=== PATIENT | female | born 1945 | race Caucasian/White ===

== ENCOUNTER → 2017-03-26 | Outpatient (CLI) | payer BC ==
[~2017-03-26] MED LIST: ACET-1257 PO; BUME1TAB PO; CEPH-571 PO; CHOL1000 PO; CMD25 PO; CRFL PO; CYAN100020 IM; FOLI1TAB7 PO; LPT10 PO; METO-648 PO; MULTCHW4 PO; PANT40TA PO; POTA1POW PO; POTA20TA16 PO; SULF800T23 PO; TRAM-10 PO; WARF5TAB90 PO; ZINC1CAP PO; ZRX5 PO; klor-con PO
== END | disposition home or self-care (01) ==
LOC: C.LAB1850 09:20
PROVIDERS: ATTEND Internal Medicine
DX: E87.5 Hyperkalemia (principal); E87.6 Hypokalemia

== ENCOUNTER → 2017-03-31 | Outpatient (CLI) | payer BC ==
--- NOTE | 2017-03-31 12:37 | DIAGNOSTIC IMAGING REPORT ---
CT OF THE CHEST WITHOUT IV CONTRAST CLINICAL HISTORY: Abnormal CT scan performed in [place]. Right lung inflammation. COMPARISON STUDY: Chest x-ray dated 11/05/2016 CT DOSE: 353.30 mGy.cm TECHNIQUE: CT of the thorax was performed from the thoracic inlet to the lung bases. Images are reviewed in the axial, sagittal, and coronal planes. IV contrast was not administered for this examination. FINDINGS: Thyroid: There is a large left-sided thyroid goiter with a suspected 4.5 cm nodule. Nonemergent thyroid ultrasonography is recommended in follow-up. Thoracic aorta: The thoracic aorta is normal in course and caliber, noting standard 3 vessel arch anatomy. Heart: There are postsurgical changes of a midline sternotomy. There are coronary artery calcifications present. Lungs and pleural spaces: There are no pleural effusions. There is no pneumothorax. There is no focal pulmonary consolidation. There are linear opacities basilar opacities, left greater than right likely representing scar/atelectasis. There is nodular fissural thickening within the right upper lobe., Mediastinum: There are multiple mildly prominent mediastinal lymph nodes which are not pathologically enlarged by size criteria Sydnee: There is no evidence of pathologic hilar adenopathy given the limitations of a noncontrast study Axilla: There is no evidence of pathologic adenopathy Upper abdomen: There is an 8 mm upper pole left renal calculus. The gallbladder surgically absent. Skeletal structures: There are no lytic or blastic osseous lesions. IMPRESSION: 1. Large left-sided thyroid goiter/nodule measuring 4.5 cm. Nonemergent thyroid ultrasonography is recommended in follow-up 2. Linear bibasilar opacities left greater than right. The appearance favors atelectasis/scarring 3. There are no findings to indicate a pneumonia 4. Left-sided nephrolithiasis Electronically signed by: Roc Andrews M.D. 03/31/2017 12:35 PM Dictated Date/Time: 03/31/2017 12:28 PM
== END | disposition home or self-care (01) ==
LOC: C.CTS 11:39
PROVIDERS: ATTEND Internal Medicine
DX: R93.8 Abnormal findings on diagnostic imaging of other specified body structures (principal); E04.9 Nontoxic goiter, unspecified; N20.0 Calculus of kidney

== ENCOUNTER → 2017-04-06 | Outpatient (CLI) | payer BC ==
--- NOTE | 2017-04-06 13:19 | DIAGNOSTIC IMAGING REPORT ---
THYROID ULTRASOUND HISTORY: R93.[address] scan, [id number] Thyroid [id number] COMPARISON: Chest CT 03/31/2017. FINDINGS: Right lobe: 6.0 x 1.8 x 2.0 cm. Multiple similar-appearing solid and cystic nodules with the largest measuring 1.4 x 1.3 x 1.1 cm within the lower pole. These do not meet sonographic criteria for biopsy. Left lobe: 7.4 x 3.3 x 5.5 cm. Dominant nodule measures 7.1 x 2.9 x 5.3 cm and demonstrates a few coarse calcifications. There is a smaller nodule posteriorly measuring 2.5 x 2.1 x 1.4 cm. This measures multiple microcalcifications. Isthmus: 4 mm in thickness. 8 mm hypoechoic nodule/cyst. IMPRESSION: Multinodular thyroid gland. Recommend ultrasound-guided fine-needle aspiration for the 2 nodules within the left lower lobe as described above. Electronically signed by: Roverto Aguilar M.D. 04/06/2017 1:18 PM Dictated Date/Time: 04/06/2017 1:15 PM
== END | disposition home or self-care (01) ==
LOC: C.ULTRBC 12:39
PROVIDERS: ATTEND Internal Medicine
DX: E01.0 Iodine-deficiency related diffuse (endemic) goiter (principal); R93.8 Abnormal findings on diagnostic imaging of other specified body structures

== ENCOUNTER → 2017-04-13 | Outpatient (CLI) | payer BC ==
[2017-04-13 17:00] LABS: BASO % 1.2 %; BASO ABS # 0.14 K/uL (0-0.2); COMPLETE YES; EOS % 1.3 %; HEMATOCRIT 34.9 % (37-47); IG% 0.8 %; LYMPH % 29.8 %; LYMPH ABS # 3.58 K/uL (1.2-3.4); MEAN CELL VOLUME 78.6 fL (80-100); MEAN CORPUSCULAR HEMOGLOBIN 24.1 pg (25-34); MEAN CORPUSCULAR HGB CONC 30.7 g/dl (32-36); MEAN PLATELET VOLUME 8.9 fL (7.4-10.4); MONO % 10.1 %; NEUT % 56.8 %; PLATELET COUNT 583 K/uL (130-400); RED BLOOD COUNT 4.44 M/uL (4.2-5.4)
== END | disposition home or self-care (01) ==
LOC: C.LABBC 14:23
PROVIDERS: ATTEND Internal Medicine Hematology & Oncology
DX: D50.9 Iron deficiency anemia, unspecified (principal)

== ENCOUNTER → 2017-04-22 | Outpatient (CLI) | payer BC ==
--- NOTE | 2017-04-22 16:56 | DIAGNOSTIC IMAGING REPORT ---
LEFT FOOT 3 VIEWS HISTORY: OPEN WOUND L FOOT COMPARISON: None. FINDINGS: There is no fracture or dislocation. Mild soft tissue swelling within the left foot. The bones are osteopenic. Plantar heel spur. No cortical destruction to suggest osteomyelitis. No radiopaque foreign bodies. 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 IMPRESSION: 1. No cortical destruction to suggest osteomyelitis. 2. No fracture or dislocation. 3. Diffuse osteopenia. Electronically signed by: Roverto Aguilar M.D. 04/22/2017 4:55 PM Dictated Date/Time: 04/22/2017 4:53 PM
== END | disposition home or self-care (01) ==
LOC: C.RAD 16:33
PROVIDERS: ATTEND Emergency Medicine
DX: S91.302A Unspecified open wound, left foot, initial encounter (principal); X58.XXXA Exposure to other specified factors, initial encounter; M85.872 Other specified disorders of bone density and structure, left ankle and foot

== ENCOUNTER → 2017-05-11 | Outpatient (CLI) | payer BC ==
[~2017-05-11] MED LIST changes: -CEPH-571 PO; -CRFL PO; -SULF800T23 PO
[2017-05-11 09:37] LABS: BASO % 1.1 %; BASO ABS # 0.11 K/uL (0-0.2); COMPLETE YES; EOS % 3.3 %; HEMATOCRIT 33.9 % (37-47); IG% 0.7 %; LYMPH % 28.5 %; LYMPH ABS # 2.95 K/uL (1.2-3.4); MEAN CELL VOLUME 78.1 fL (80-100); MEAN CORPUSCULAR HEMOGLOBIN 23.3 pg (25-34); MEAN CORPUSCULAR HGB CONC 29.8 g/dl (32-36); MEAN PLATELET VOLUME 9.1 fL (7.4-10.4); MONO % 12.1 %; NEUT % 54.3 %; PLATELET COUNT 574 K/uL (130-400); RED BLOOD COUNT 4.34 M/uL (4.2-5.4); WHITE BLOOD COUNT 10.36 K/uL (4.8-10.8)
[2017-05-11 10:11] LABS: BLOOD UREA NITROGEN 25 mg/dl (7-18); BUN/CREATININE RATIO 27.3 (10-20); CARBON DIOXIDE 35 mmol/L (21-32); CHLORIDE 96 mmol/L (98-107); CREATININE 0.93 mg/dl (0.60-1.20); GLUCOSE 130 mg/dl (70-99); MAGNESIUM 2.5 mg/dl (1.8-2.4); POTASSIUM 2.7 mmol/L (3.5-5.1); SODIUM 138 mmol/L (136-145)
[2017-05-11 10:14] LABS: TOTAL IRON BINDING CAPACITY 405 mcg/dl (250-450)
== END | disposition home or self-care (01) ==
LOC: C.LAB 07:21
PROVIDERS: ATTEND Internal Medicine
DX: E87.6 Hypokalemia (principal); D64.9 Anemia, unspecified; I50.9 Heart failure, unspecified

== ENCOUNTER → 2017-05-14 | Outpatient (CLI) | payer BC | END | disposition home or self-care (01) | LOC: C.LAB 12:33 | PROVIDERS: ATTEND Internal Medicine | DX: E87.6 Hypokalemia (principal); E87.5 Hyperkalemia ==

== ENCOUNTER → 2017-05-26 | Outpatient (CLI) | payer BC ==
[~2017-05-26] MED LIST changes: -ACET-1257 PO; -METO-648 PO; +METO1TAB70 PO; -TRAM-10 PO; -ZINC1CAP PO; -klor-con PO
[2017-05-26 13:12] LABS: HEMATOCRIT 34.4 % (37-47)
[2017-05-26 13:37] LABS: ALT/SGPT 29 U/L (12-78); AST/SGOT 26 U/L (15-37); BLOOD UREA NITROGEN 19 mg/dl (7-18); CALCIUM 8.9 mg/dl (8.5-10.1); CARBON DIOXIDE 29 mmol/L (21-32); CHLORIDE 105 mmol/L (98-107); CREATININE 0.85 mg/dl (0.60-1.20); GLUCOSE 99 mg/dl (70-99); PHOSPHORUS 2.8 mg/dl (2.5-4.9); POTASSIUM 3.4 mmol/L (3.5-5.1); SODIUM 140 mmol/L (136-145)
[2017-05-26 13:46] LABS: ALB/GLOB RATIO 0.8 (0.9-2); ALKALINE PHOSPHATASE 143 U/L (45-117); THYROID STIMULATING HORMONE 0.326 uIu/ml (0.300-4.500); TOTAL IRON BINDING CAPACITY 398 mcg/dl (250-450)
[2017-05-28 18:35] LABS: ALBUMIN 3.5 G/DL (3.8-4.8); GAMMA GLOBULIN 1.4 G/DL (0.8-1.7); TOTAL PROTEIN 6.8 G/DL (6.2-8.3)
--- NOTE | 2017-06-01 09:57 | CODING QUERY MEDICAL NECESSITY ---
CQSUPPORTING DIAGNOSIS NEEDED A supporting diagnosis is required for the test/procedure performed on this patient in order for us to be reimbursed by the patient's insurance. Please provide a supporting diagnosis for the following test/procedure listed below next to the test name along with your signature. *If there is no additional diagnosis for this patient that would support the following test/procedure please document that below next to the test/procedure. Test(s)/Procedure(s) that require a supporting diagnosis: TONIO 05/26/17 VITAMIN D TEST Provider Signature: Date: Thank you Elizabet Morin [facility] Information Management Once completed, please kindly fax back to [phone] For questions please call [phone]
== END ==
LOC: C.LAB1850 11:42
PROVIDERS: ATTEND Internal Medicine Endocrinology, Diabetes & Metabolism
DX: Z98.890 Other specified postprocedural states (principal); E55.9 Vitamin D deficiency, unspecified

== ENCOUNTER → 2017-06-08 | Outpatient (CLI) | payer BC | END | disposition home or self-care (01) | LOC: C.MAMM 07:53 | PROVIDERS: ATTEND Internal Medicine Endocrinology, Diabetes & Metabolism | DX: M85.89 Other specified disorders of bone density and structure, multiple sites (principal); M81.0 Age-related osteoporosis without current pathological fracture; M15.9 Polyosteoarthritis, unspecified ==

== ENCOUNTER → 2017-08-04 | Outpatient (CLI) | payer BC ==
[2017-08-04 15:32] LABS: BASO % 1.1 %; EOS % 6.4 %; HEMATOCRIT 39.4 % (37-47); IG% 0.7 %; LYMPH % 32.5 %; LYMPH ABS # 3.08 K/uL (1.2-3.4); MEAN CELL VOLUME 80.9 fL (80-100); MEAN CORPUSCULAR HEMOGLOBIN 26.3 pg (25-34); MEAN CORPUSCULAR HGB CONC 32.5 g/dl (32-36); MEAN PLATELET VOLUME 9.5 fL (7.4-10.4); MONO % 9.4 %; NEUT % 49.9 %; PLATELET COUNT 490 K/uL (130-400); RED BLOOD COUNT 4.87 M/uL (4.2-5.4); WHITE BLOOD COUNT 9.48 K/uL (4.8-10.8)
[2017-08-04 15:53] LABS: BLOOD UREA NITROGEN 27 mg/dl (7-18); BUN/CREATININE RATIO 27.9 (10-20); CALCIUM 9.7 mg/dl (8.5-10.1); CARBON DIOXIDE 31 mmol/L (21-32); CHLORIDE 97 mmol/L (98-107); CREATININE 0.97 mg/dl (0.60-1.20); GLUCOSE 161 mg/dl (70-99); SODIUM 137 mmol/L (136-145)
[2017-08-04 16:01] LABS: ANISOCYTOSIS PRESENT; COMPLETE YES
[2017-08-04 16:04] LABS: POTASSIUM 2.4 mmol/L (3.5-5.1)
[2017-08-04 16:07] LABS: CHOLESTEROL/HDL RATIO 4.1
[2017-08-04 16:13] LABS: THYROID STIMULATING HORMONE 0.348 uIu/ml (0.300-4.500)
[2017-08-05 05:59] LABS: ESTIMATED AVERAGE GLUCOSE 131 mg/dl; HA1C FLAG Normal (Normal)
--- NOTE | 2017-08-24 09:28 | CODING QUERY MEDICAL NECESSITY ---
CQSUPPORTING DIAGNOSIS NEEDED A supporting diagnosis is required for the test/procedure performed on this patient in order for us to be reimbursed by the patient's insurance. Please provide a supporting diagnosis for the following test/procedure listed below next to the test name along with your signature. *If there is no additional diagnosis for this patient that would support the following test/procedure please document that below next to the test/procedure. Test(s)/Procedure(s) that require a supporting diagnosis: DOS 08/04/17 VITAMIN B12 TEST GLYCATED HEMOGLOBIN TEST Provider Signature: Date: Thank you Elizabet Morin Health Information Management Once completed, please kindly fax back to [phone] For questions please call [phone]
--- NOTE | 2017-08-24 09:30 | CODING QUERY MEDICAL NECESSITY ---
CQSUPPORTING DIAGNOSIS NEEDED A supporting diagnosis is required for the test/procedure performed on this patient in order for us to be reimbursed by the patient's insurance. Please provide a supporting diagnosis for the following test/procedure listed below next to the test name along with your signature. *If there is no additional diagnosis for this patient that would support the following test/procedure please document that below next to the test/procedure. Test(s)/Procedure(s) that require a supporting diagnosis: DOS 08/04/17 VITAMIN D TEST Provider Signature: Date: Thank you Elizabet Morin Health Information Management Once completed, please kindly fax back to [phone] For questions please call [phone]
== END | disposition home or self-care (01) ==
LOC: C.LAB 13:38
PROVIDERS: ATTEND Dermatology
DX: L29.9 Pruritus, unspecified (principal)

== ENCOUNTER → 2017-08-12 | Outpatient (CLI) | payer BC ==
[2017-08-12 12:25] LABS: BLOOD UREA NITROGEN 25 mg/dl (7-18); BUN/CREATININE RATIO 26.8 (10-20); CALCIUM 9.2 mg/dl (8.5-10.1); CARBON DIOXIDE 34 mmol/L (21-32); CHLORIDE 96 mmol/L (98-107); CREATININE 0.94 mg/dl (0.60-1.20); GLUCOSE 117 mg/dl (70-99); POTASSIUM 3.1 mmol/L (3.5-5.1); SODIUM 138 mmol/L (136-145)
== END | disposition home or self-care (01) ==
LOC: C.LAB 10:41
PROVIDERS: ATTEND Physician Assistant
DX: E87.6 Hypokalemia (principal)

== ENCOUNTER → 2018-03-29 | Outpatient (CLI) | payer BC ==
[~2018-03-29] MED LIST changes: +ACET-1257 PO; -FOLI1TAB7 PO; +FOLI1TAB8 PO; -METO1TAB70 PO; +METO200T31 PO; -POTA1POW PO; -POTA20TA16 PO; +TRAM-10 PO; +ZINC1CAP PO; +klor-con PO
--- NOTE | 2018-03-29 10:46 | DIAGNOSTIC IMAGING REPORT ---
R PELVIS UNI HIP 2_3 V HISTORY: 72 years-old Female LOW BACK PAIN RIGHT HIP PAIN acute right hip pain COMPARISON: CT abdomen and pelvis 03/17/2016 TECHNIQUE: Single AP view of the pelvis with 2 views of the right hip FINDINGS: Bony pelvis is intact without acute fracture or dislocation. Mild osteoarthritis about the bilateral hips. Surgical clips project over the pelvis. Peripheral arterial calcifications. No opaque foreign body. IMPRESSION: No acute fracture or dislocation. The above report was generated using voice recognition software. It may contain grammatical, syntax or spelling errors. Electronically signed by: Sean Garcia M.D. 03/29/2018 10:44 AM Dictated Date/Time: 03/29/2018 10:43 AM
--- NOTE | 2018-03-29 10:50 | DIAGNOSTIC IMAGING REPORT ---
LUMBAR SPINE MIN 4 VIEWS CLINICAL HISTORY: 72 years-old Female presenting with LOW BACK PAIN RIGHT HIP PAIN. TECHNIQUE: Frontal, bilateral oblique, lateral, and coned in lateral views of the lumbar spine were obtained. COMPARISON: 03/26/2016. FINDINGS: Osteopenia suggested. Slightly exaggerated lumbar lordosis. 5 mm of grade 1 anterolisthesis of L4 on L5 suggested, unchanged. Mildly exaggerated endplate concavity evident at L2 and L3 similar to prior exam and possibly suggesting osteoporotic deformities. Vertebral bodies otherwise maintain normal height and alignment. No evidence of a acute compression deformity or subluxation. Intervertebral disc heights preserved. No advanced degenerative change. Facet arthropathy may be present in the lower lumbar spine though no gross evidence of osseous neural foraminal narrowing is radiographically apparent. No scoliosis. Cholecystectomy clips. Additional surgical clips project over the bilateral lower quadrants. No bowel obstruction. Atherosclerosis. IMPRESSION: 1. Osteopenia and osteoporosis suspected with chronic endplate deformities. 2. No acute osseous injury of the lumbar spine. 3. Grade 1 anterolisthesis of L4 on L5 unchanged. 4. No advanced degenerative changes. Electronically signed by: Duc Morataya M.D. 03/29/2018 10:49 AM Dictated Date/Time: 03/29/2018 10:46 AM
== END | disposition home or self-care (01) ==
LOC: C.RDSM 10:15
PROVIDERS: ATTEND Family Medicine
DX: M25.551 Pain in right hip (principal); M54.5 Low back pain; M85.88 Other specified disorders of bone density and structure, other site; M81.0 Age-related osteoporosis without current pathological fracture; M53.86 Other specified dorsopathies, lumbar region

== ENCOUNTER 2019-07-05 19:10 | Inpatient (IN) ==
[2019-07-05 19:43] LABS: Basophils # (auto) 0.05 K/uL (0-0.2); Basophils % (auto) 0.4 %; Eosinophils # (auto) 0.29 K/uL (0-0.5); Eosinophils % (auto) 2.2 %; Hematocrit (blood only) 33.8 % (37-47); Hemoglobin 10.8 g/dL (12.0-16.0); Immature Granulocytes # (auto) 0.12 K/uL (0.00-0.02); Immature Granulocytes % (auto) 0.9 %; Lymphocytes # (auto) 3.24 K/uL (1.2-3.4); Mean Corpuscular Volume 77.9 fL (80-100); Monocytes # (auto) 1.33 K/uL (0.11-0.59); Monocytes % (auto) 10.3 %; Neutrophils # (auto) 7.94 K/uL (1.4-6.5); Neutrophils % (auto) 61.2 %; Platelet Count 437 K/uL (130-400); RDW Coefficient of Variation 17.1 % (11.5-14.5); RDW Standard Deviation 48.5 fL (36.4-46.3); Red Blood Count 4.34 M/uL (4.2-5.4); White Blood Count 12.97 K/uL (4.8-10.8)
--- NOTE | 2019-07-05 19:50 | XRay Report ---
SINGLE VIEW CHEST CLINICAL HISTORY: Dyspnea. FINDINGS: An AP, portable, upright chest radiograph is compared to study dated 04/04/2019 and correlat ed with chest CT dated 05/05/2019. The examination is degraded by portable technique and patient rotat ion. The patient is status post midline sternotomy and cardiac valve surgery. The heart is enlarged and there is atherosclerotic calcification of the thoracic aorta. The pulmonary vasculature is noncon gested. Enlargement of the main pulmonary arteries suggests pulmonary artery hypertension. Chronic in terstitial thickening is similar to previous. There is bibasilar scarring/atelectasis. Pleural thicke ja at the left lung base is similar unchanged from prior studies. No airspace consolidation or larg e pleural effusion is identified. No pneumothorax is seen. The skeletal structures are osteopenic. Th e bony thorax is grossly intact. IMPRESSION: Cardiomegaly with no acute cardiopulmonary abnormality. Electronically signed by: Albert Pettit M.D. 07/05/2019 7:49 PM
[2019-07-05 19:53] LABS: INR 2.6 (0.9-1.1); Partial Thromboplastin Ratio 1.4; Partial Thromboplastin Time 38.1 Seconds (21.0-31.0); Prothrombin Time 24.5 Seconds (9.0-12.0)
[2019-07-05 20:33] LABS: Alanine Aminotransferase 29 U/L (12-78); Albumin Globulin Ratio 0.8 (0.9-2); Albumin Level 3.5 gm/dl (3.4-5.0); Alkaline Phosphatase 138 U/L (45-117); Aspartate Aminotransferase 43 U/L (15-37); BUN Creatinine Ratio 27.5 (10-20); Bilirubin,Total 0.4 mg/dl (0.2-1); Blood Urea Nitrogen 34 mg/dl (7-18); Carbon Dioxide 25 mmol/L (21-32); Chloride 107 mmol/L (98-107); Creatinine Clr Calc Pharmacy 54.3 ml/min; Est GFR (African American) 50.9; Est GFR (Non-African American) 43.9; Globulin 4.4 gm/dl (2.5-4.0); Glucose 132 mg/dl (70-99); Magnesium 2.4 mg/dl (1.8-2.4); NT Pro B Type Natriuretic Pept 1469 pg/ml (0-900); Potassium 7.5 mmol/L (3.5-5.1); Sodium 135 mmol/L (136-145); Total Protein 7.9 gm/dl (6.4-8.2); Troponin I < 0.015 ng/ml (0-0.045)
[2019-07-05 20:57] LABS: iSTAT Hemoglobin 10.9 g/dl (12.0-16.0); iSTAT Ionized Calcium 1.19 mmol/l (1.12-1.32); iSTAT Potassium 7.3 mEq/L (3.3-5.0)
[2019-07-05] MEDS ORDERED: NovoLIN-R INSULIN PER UNIT CHARGE IV STA (21:30)
[2019-07-05] MEDS ORDERED: DEXTROSE 50% 50 ML SYRINGE IV ONE (21:30)
[2019-07-05] MEDS ORDERED: SODIUM BICARB 8.4% INJ 50 MEQ/50 ML SYR IV STA (21:30)
[2019-07-05] MEDS ORDERED: CALCIUM GLUCONATE 10% 1,000 MG in SODIUM CHLORIDE 0.9% 50 ML IV STA (21:30)
--- NOTE | 2019-07-05 23:32 | Emergency Department Note ---
Entered by Wesly Orozco acting as a scribe for Bro Quarles MD ED Provider Note CHIEF COMPLAINT: Shortness of breath HISTORY OF PRESENT ILLNESS: The patient is a 74 year old female who presents to the Emergency Room with complaints of intermittent shortness of breath that she first noticed yesterday after coming home from work. The patient states she went to work yesterday and when she returned home she felt tired and had chills. She notes that she also had a cramping leg pain. The patient reports that this morning she felt better but this afternoon she developed the same symptoms as yesterday but her shortness of breath was worse, especially with exertion. The patient notes that with these symptoms she has also had an intermittent cough and has been progressively feeling more weak. The patient has a history of CHF and notes she is on a water pill. She states she did take her Bumex today but not her Metolazone. The patient is also on Coumadin due to her history of Afib and 2 artificial heart valves. Pt denies LOC, headache, fevers, chills, diaphoresis, visual changes, neck pain, chest pain, nausea, vomiting, abdominal pain, back pain, melena, hematochezia, urinary symptoms, numbness, lymphadenopathy, rash, or other complaints. REVIEW OF SYSTEMS: See HPI for pertinent positives and negatives. A total of ten systems were reviewed and were otherwise negative. PMHx/PSHx: CHF, Anemia, Bronchitis, GI bleed, Valvular heart disease SOCIAL HISTORY: Patient lives at home. PHYSICAL EXAM: GENERAL: Awake, alert, mildly dyspneic-appearing, in no distress HENT: Normocephalic, atraumatic. Oropharynx unremarkable. EYES: Normal conjunctiva. Sclera non-icteric. NECK: Inspection normal. Non-tender. Supple. No nuchal rigidity. FROM. No masses. RESPIRATORY: Clear to auscultation. No wheezes. No rales. Normal respiratory effort. CARDIAC: Borderline tachycardic rate. Irregular rhythm. Systolic murmur noted. No rubs. Extremities warm and well perfused. Pulses equal. No JVD. Mechanical heart valve sounds present. GI: Soft, non-distended. No tenderness to palpation. No rebound or guarding. No masses. RECTAL: Deferred. MUSCULOSKELETAL: Atraumatic. Chest examination reveals no tenderness. The back is symmetrical on inspection without obvious abnormality. There is no CVA tenderness to palpation. No joint edema. LOWER EXTREMITIES: Calves are equal size bilaterally and non-tender. 1+ edema bilaterally. Chronic venous discoloration. Small ulcer to the back of the left calf with no surrounding cellulitis or erythema. NEURO: Normal sensorium. No sensory or motor deficits noted. SKIN: No rash or jaundice noted. EMERGENCY DEPARTMENT COURSE: 1926: Past medical records reviewed. The patient was evaluated in room C04, and a complete history and physical examination were performed. 2047: I reevaluated the patient and she is stable, resting in bed. 2139: I updated the patient with results. We also discussed the treatment plan and she agreed. 2152: I spoke to Dr. Monroe - [facility] Hospitalist about the patient's case. She will be accepting the patient for further evaluation. MEDICAL DECISION MAKING: C4 Prior records/ancillary studies reviewed. Triage Nursing notes reviewed and agree them. Additional history obtained from the family. The patient's history was concerning for shortness of breath. Differential diagnosis: Etiologies such as pneumonia, COPD, reactive airway disease, CHF, cardiac i schemia, pulmonary embolism, pneumothorax, musculoskeletal, infections, gastrointestinal, as well as others were entertained. Physical examination: As above. Mildly dyspneic. ER treatment provided: Cardiac monitoring: The patient was placed on continuous cardiac monitoring and observed. It revealed atrial fibrillation. The tachycardia had resolved prior to treatment. IV calcium IV dextrose IV insulin IV bicarbonate Diagnostic interpretation by me: The electrocardiogram was negative for ischemic change. The labs revealed a mild anemia and CBC. Chemistry panel revealed significant hyperkalemia. A repeat chemistry panel was performed by i-STAT and confirmed the hyperkalemia. Imaging studies: Chest x-ray as noted below. Patient notes that she was having muscle cramps and took extra potassium. She states that she was taking 2 vials of potassium but does not know the amount. She has normal renal function but I am concerned that she may have taken a significant amount of oral potassium. Given the confirmed hyperkalemia she was treated and will need further management in the hospital. Consultation: A consultation was placed with the [facility] hospitalist. The case was discussed and diagnostics were reviewed. The patient was evaluated in the ER for further treatment. IMPRESSION: Hyperkalemia Shortness of breath Rapid Afib PLAN: Being evaluated by hospitalist CRITICAL CARE: I have personally spent greater than 30 minutes of critical care time in the direct management of this patient. This includes bedside care, interpretation of diagnostic studies, and testing, discussion with consultants, patient, and family members, and other required patient management activities. This 30 minutes is in excess of all separately billable procedures. The scribe's documentation has been prepared under my direction and personally reviewed by me in its entirety. I confirm that the note above accurately reflects all work, treatment, procedures, and medical decision making performed by me. Impression & Plan SOB (shortness of breath), Atrial fibrillation, rapid, Hyperkalemia Past Med/Surg History Medical History Atrial fibrillation ASCVD (arteriosclerotic cardiovascular disease) (Acute) Acquired claw toe of left foot (Acute) Acquired claw toe of right foot (Acute) CHF (congestive heart failure) (Acute) Callus (Acute) Controlled type 2 diabetes mellitus with diabetic peripheral angiopathy without gangrene (Acute) DM II (diabetes mellitus, type II), controlled (Acute) Diabetes mellitus with diabetic polyneuropathy (Acute) Diabetic neuropathy (Acute) HTN (hypertension) (Acute) Hyperlipidemia (Acute) Neuropathic ulcer of toe of left foot (Acute) Neuropathic ulcer of toe of right foot (Acute) Surgical aftercare, skin or subcutaneous tissue (Acute) H/O chest x-ray Surgical History S/P gastric bypass (Acute) H/O aortic valve replacement H/O hernia repair H/O mitral valve replacement H/O splenectomy History of knee replacement History of total abdominal hysterectomy Hx of appendectomy Hx of cholecystectomy Hx of tonsillectomy Family History Mother Congestive heart failure Diabetes Hypertension Cardiac disorder Brother Diabetes Polycythemia Pharyngeal neoplasm Pulmonary embolism Father Lung cancer Acute myocardial infarction Hypertension Cardiac disorder Social History Preferred Language: Albanian Communication Ability: Effective Visual Impairment: No Limitations Beliefs That Will Affect Care: None Current Living Situation: Spouse current occupational status: retired Feels Safe at Home: Yes Smoking Status: Never smoker Hx Alcohol Use: Yes Alcohol type: beer and other Alcohol type Comment: occassional mixed drink and beer Alcohol Intake Frequency: Holidays/Special Occasions Hx Substance Use: No Childhood Exposure to Second-Hand Smoke: No Other Diet Comment: pt watches diet intake s/p gastric bypass surgery caffeine: Yes during the past year weight has: decreased > 10 lbs Dental Care, Regularly: Yes Physical Activity Frequency: 3-4 Times per Week Seatbelt Use: always Sunscreen Use: Yes Results & Data Vital Signs Vital Signs - 24 hr 07/05/19 19:12 07/05/19 19:18 07/05/19 20:15 Temperature 36.9 C Temperature Source Oral Sepsis Recent Fever Within 48 Hours No Sepsis New/Unexplained Change in Mental Status No Sepsis Action Taken by Nursing No Action Required Pulse Rate 119 H Pulse Rate [Finger] 81 Respiratory Rate 32 H 18 Blood Pressure 172/86 H Blood Pressure [Left Arm] 121/66 Blood Pressure Mean 114 Blood Pressure Mean [Left Arm] 84 Pulse Oximetry 94 96 96 Oxygen Delivery Method Room Air Room Air 07/05/19 21:48 Temperature Temperature Source Sepsis Recent Fever Within 48 Hours Sepsis New/Unexplained Change in Mental Status Sepsis Action Taken by Nursing Pulse Rate Pulse Rate [Finger] 88 Respiratory Rate 18 Blood Pressure Blood Pressure [Left Arm] 132/84 Blood Pressure Mean Blood Pressure Mean [Left Arm] 100 Pulse Oximetry 97 Oxygen Delivery Method Room Air Home Medications Current Medication List: was personally reviewed by me Laboratory Data Attestation: I reviewed the patient's lab results. Result diagrams: 07/05/19 19:32 07/05/19 19:32 Lab Results 07/05/19 07/05/19 07/05/19 Range/Units 19:32 19:32 19:32 WBC 12.97 H (4.8-10.8) K/uL RBC 4.34 (4.2-5.4) M/uL Hgb 10.8 L (12.0-16.0) g/dL POC Hgb (12.0-16.0) g/dl Hct 33.8 L (37-47) % POC Hct (37-47) % MCV 77.9 L (80-100) fL MCH 24.9 L (25-34) pg MCHC 32.0 (32-36) g/dL RDW Std Deviation 48.5 H (36.4-46.3) fL RDW Coeff of Donald 17.1 H (11.5-14.5) % Plt Count 437 H (130-400) K/uL MPV 9.0 (7.4-10.4) fL Immature Gran % (Auto) 0.9 % Neut % (Auto) 61.2 % Lymph % (Auto) 25.0 % Wilcox % (Auto) 10.3 % Eos % (Auto) 2.2 % Baso % (Auto) 0.4 % Immature Gran # (Auto) 0.12 H (0.00-0.02) K/uL Neut # (Auto) 7.94 H (1.4-6.5) K/uL Lymph # (Auto) 3.24 (1.2-3.4) K/uL Wilcox # (Auto) 1.33 H (0.11-0.59) K/uL Eos # (Auto) 0.29 (0-0.5) K/uL Baso # (Auto) 0.05 (0-0.2) K/uL PT 24.5 H (9.0-12.0) Seconds INR 2.6 H (0.9-1.1) APTT 38.1 H (21.0-31.0) Seconds PTT Ratio 1.4 POC Sodium (135-144) mEq/L Sodium 135 L (136-145) mmol/L POC Potassium (3.3-5.0) mEq/L Potassium 7.5 H* (3.5-5.1) mmol/L POC Chloride (101-112) mEq/L Chloride 107 (98-107) mmol/L Carbon Dioxide 25 (21-32) mmol/L POC Total CO2 (24-31) mEq/l Anion Gap 4.0 (3-11) POC Anion Gap (16-25) mmol/L POC BUN (7-18) mg/dl BUN 34 H (7-18) mg/dl Creatinine 1.22 H (0.6-1.2) mg/dl POC Creatinine (0.6-1.3) mg/dl Est Cr Clr Drug Dosing 54.3 ml/min Est GFR ( Amer) 50.9 Est GFR (Non-Af Amer) 43.9 BUN/Creatinine Ratio 27.5 H (10-20) Glucose 132 H (70-99) mg/dl POC Glucose (other) (70-99) mg/dl Calcium 9.0 (8.5-10.1) mg/dl POC Ioniz Calcium Crys (1.12-1.32) mmol/l Magnesium 2.4 (1.8-2.4) mg/dl Total Bilirubin 0.4 (0.2-1) mg/dl AST 43 H (15-37) U/L ALT 29 (12-78) U/L Alkaline Phosphatase 138 H (45-117) U/L Troponin I < 0.015 (0-0.045) ng/ml NT-Pro-B Natriuret Pep 1469 H (0-900) pg/ml Total Protein 7.9 (6.4-8.2) gm/dl Albumin 3.5 (3.4-5.0) gm/dl Globulin 4.4 H (2.5-4.0) gm/dl Albumin/Globulin Ratio 0.8 L (0.9-2) 07/05/19 Range/Units 20:43 WBC (4.8-10.8) K/uL RBC (4.2-5.4) M/uL Hgb (12.0-16.0) g/dL POC Hgb 10.9 L (12.0-16.0) g/dl Hct (37-47) % POC Hct 32 L (37-47) % MCV (80-100) fL MCH (25-34) pg MCHC (32-36) g/dL RDW Std Deviation (36.4-46.3) fL RDW Coeff of Donald (11.5-14.5) % Plt Count (130-400) K/uL MPV (7.4-10.4) fL Immature Gran % (Auto) % Neut % (Auto) % Lymph % (Auto) % Wilcox % (Auto) % Eos % (Auto) % Baso % (Auto) % Immature Gran # (Auto) (0.00-0.02) K/uL Neut # (Auto) (1.4-6.5) K/uL Lymph # (Auto) (1.2-3.4) K/uL Wilcox # (Auto) (0.11-0.59) K/uL Eos # (Auto) (0-0.5) K/uL Baso # (Auto) (0-0.2) K/uL PT (9.0-12.0) Seconds INR (0.9-1.1) APTT (21.0-31.0) Seconds PTT Ratio POC Sodium 134 L (135-144) mEq/L Sodium (136-145) mmol/L POC Potassium 7.3 H* (3.3-5.0) mEq/L Potassium (3.5-5.1) mmol/L POC Chloride 104 (101-112) mEq/L Chloride (98-107) mmol/L Carbon Dioxide (21-32) mmol/L POC Total CO2 24 (24-31) mEq/l Anion Gap (3-11) POC Anion Gap 15.0 L (16-25) mmol/L POC BUN 31 H (7-18) mg/dl BUN (7-18) mg/dl Creatinine (0.6-1.2) mg/dl POC Creatinine 1.0 (0.6-1.3) mg/dl Est Cr Clr Drug Dosing ml/min Est GFR ( Amer) Est GFR (Non-Af Amer) BUN/Creatinine Ratio (10-20) Glucose (70-99) mg/dl POC Glucose (other) 118 H (70-99) mg/dl Calcium (8.5-10.1) mg/dl POC Ioniz Calcium Crys 1.19 (1.12-1.32) mmol/l Magnesium (1.8-2.4) mg/dl Total Bilirubin (0.2-1) mg/dl AST (15-37) U/L ALT (12-78) U/L Alkaline Phosphatase (45-117) U/L Troponin I (0-0.045) ng/ml NT-Pro-B Natriuret Pep (0-900) pg/ml Total Protein (6.4-8.2) gm/dl Albumin (3.4-5.0) gm/dl Globulin (2.5-4.0) gm/dl Albumin/Globulin Ratio (0.9-2) Administered Medications Discontinued Medications Dextrose (Dextrose 50%) 50 ml IV NOW ONE Stop: 07/05/19 21:31 Last Admin: 07/05/19 22:00 Dose: 50 ml Documented by: [id number] Calcium Gluconate 1,000 mg/ (Sodium Chloride) 60 mls @ 240 mls/hr IV NOW STA Stop: 07/05/19 21:44 Last Infusion: 07/05/19 22:10 Dose: 0 mls/hr Documented by: [id number] Admin: 07/05/19 21:45 Dose: 240 mls/hr Documented by: [id number] Insulin Human Regular (Novolin R U-100 Per Unit) 10 units IV NOW STA Stop: 07/05/19 21:31 Last Admin: 07/05/19 22:01 Dose: 10 units Documented by: [id number] Cosigned by: [id number] Sodium Bicarbonate (Sodium Bicarbonate 8.4%) 50 meq IV NOW STA Stop: 07/05/19 21:31 Last Admin: 07/05/19 22:00 Dose: 50 meq Documented by: [id number] Imaging Data Radiologist's Impression: Radiology results as stated below per my review and the radiologist's interpretation: SINGLE VIEW CHEST CLINICAL HISTORY: Dyspnea. FINDINGS: An AP, portable, upright chest radiograph is compared to study dated 04/04/2019 and correlated with chest CT dated 05/05/2019. The examination is degraded by portable technique and patient rotation. The patient is status post midline sternotomy and cardiac valve surgery. The heart is enlarged and there is atherosclerotic calcification of the thoracic aorta. The pulmonary vasculature is noncongested. Enlargement of the main pulmonary arteries suggests pulmonary artery hypertension. Chronic interstitial thickening is similar to previous. There is bibasilar scarring/atelectasis. Pleural thickening at the left lung base is similar unchanged from prior studies. No airspace consolidation or large pleural effusion is identified. No pneumothorax is seen. The skeletal structures are osteopenic. The bony thorax is grossly intact. IMPRESSION: Cardiomegaly with no acute cardiopulmonary abnormality. Electronically signed by: Albert Pettit M.D. 07/05/2019 7:49 PM ECG Data Attestation: I personally reviewed and interpreted this ECG as follows: Indication: SOB/dyspnea Rate (beats per minute): 92 Rhythm: atrial fibrillation Findings: + Q waves (Anterioseptal ) and + RBBB (Incomplete); no ST elevation Blood Pressure Blood Pressure Findings: Normal blood pressure Discharge Plan Visit Data Chief Complaint: Shortness of Breath/Dyspnea Stated Complaint: SHORTNESS OF BRAEATH ED Provider: Bro Quarles Discharge Problem: SOB (shortness of breath), Atrial fibrillation, rapid, Hyperkalemia Patient Disposition: Being Evaluated by Hospitalist Forms Stand Alone Forms: [facility] Prescriptions Prescriptions: No Action atorvastatin 10 mg tablet 10 mg PO QAM Qty: 90 RF: 0 bumetanide 1 mg tablet See Patient Comments PO .COMPLEX RF: 0 metoprolol succinate 200 mg tablet extended release 24 hr 100 mg PO BID RF: 0 omeprazole 20 mg capsule,delayed release(DR/EC) 20 mg PO BID PRN (Reason: Acid Reflux) Qty: 60 RF: 0 potassium chloride 20 mEq/15 mL liquid See Rx Instructions PO DAILY Qty: 3800 RF: 3 metolazone 5 mg tablet 5 mg PO DIRECTED PRN (Reason: Weight Gain) RF: 0 acetaminophen [Tylenol Extra Strength] 500 mg tablet 1,000 mg PO Q6H PRN (Reason: Pain) RF: 0 cyanocobalamin (vitamin B-12) 1,000 mcg/mL solution 1,000 mcg IM MONTHLY RF: 0 ascorbate calcium (vitamin C) 500 mg tablet 500 mg PO QAM RF: 0 warfarin 5 mg tablet See Rx Instructions .ROUTE .COMPLEX RF: 0 folic acid 1 mg tablet 1 mg PO QAM RF: 0 multivitamin with iron tablet 1 tab PO QAM RF: 0 cholecalciferol (vitamin D3) 2,000 unit capsule 2,000 units PO QAM RF: 0 Referrals Referrals: Pro,Fernie Hoyt MD [Primary Care Provider] - The scribe's documentation has been prepared under my direction and personally reviewed by me in its entirety. I confirm that the note above accurately reflects all work, treatment, procedures, and medical decision making performed by me.
--- NOTE | 2019-07-05 23:45 | History & Physical Report ---
Date of Service July 05, 2019 Assessment & Plan (1) Hyperkalemia: Patient with K=7.5, confirmed with repeat testing. Renal function is near baseline. Patient has been eating a lot of fruit, using potassium-based salt substitute and took some supplemental K this evening due to muscle cramping. She has no EKG evidence of hyperkalemia. Treatment initiated in ER with calcium gluconate, insulin/D50 and NaHCO3. -Admit to PCU, telemetry monitoring -Repeat BMP q 4 hours to monitor K -Bumex 2mg IV x 1 dose -Low K diet Present on Admission?: Yes (2) Anemia: Patient with history of gastric bypass surgery, chronic anemia. She was previously receiving iron infusions on a regular basis (q 6 months). Her blood counts have improved and her last iron infusion was reportedly 12-18 months ago. She denies active bleeding, melena/hematochezia/hematuria or bleeding/bruising. Hg=10.8 and Hct=33.8 which is down from 12 and 37.7 in May. MCV=77.9, MCH=24.9 -Check FOBT -Check iron and ferritin levels. Patient will most likely benefit from iron infusion -Continue Folic Acid supplementation -Monitor CBC Present on Admission?: Yes (3) Chronic CHF: Patient with SOB, elevated BNP today. Does not appear to be volume overloaded at present -Bumex 2mg IV as above -Monitor I/Os Present on Admission?: Yes (4) Hypertension: Blood pressure well controlled -Cotninue metoprolol -Continue to monitor (5) Atrial fibrillation: Rate controlled AF. -Continue Metoprolol -Continue Coumadin (6) S/P aortic valve replacement: Patient on Coumadin anticoagulation, INR=2.6 -Continue home regimen. Patient is unsure of how she takes her Coumadin. Thinks she alternates 2.5mg with 5mg. Her is to bring in her medication card from home. -INR in AM Present on Admission?: Yes (7) S/P mitral valve replacement: As above F/E/N - Bumex dosing as above. Monitor electrolytes and replete as needed. Diet as tolerated, low K Ppx - Patient anticoagulated with Coumading. Therapeutic INR at 2.6. Continue home Omeprazole Code - Full Dispo - Admit to [facility] History of Present Illness Chief Complaint: leg cramps Primary Care Provider: Fernie Rodriguez MD Eden Wagner is a pleasant 74yo C female with multiple medical comorbidities presenting with hyperkalemia. Patient recently started working at [employer] he worked yesterday and began developing cramping in her legs. Her leg cramping continued through the night. Patient also with chills and shortness of breath. She has a cough productive for clear sputum. No dysuria. No abdominal pain/nausea/vomiting/diarrhea or constipation. No additional complaints. She called her physician's office and was told that her leg cramping may be secondary to low potassium as she has a history of the same. She took two bottles of potassium. Of note, patient checks her weight daily. She is instructed to take her diuretics as needed based on her weight. She takes either Bumex or Metolazone. When she takes her Bumex she takes 1 bottle of potassium and when she takes metolazone she takes 2 bottles. She states that she has not been taking her potassium as prescribed over the past few weeks. She has instead been eating a lot of fruit, bananas and watermelon and using a lot of salt substitute. ER Course: Calcium gluconate, D50, insulin, sodium bicarbonate Allergies Allergy/AdvReac Type Severity Reaction Status Date / Time choline salicylate Allergy Intermediate TRILISATE-r Verified 07/05/19 22:36 nay magnesium salicylate Allergy Intermediate TRILISATE-r Verified 07/05/19 22:36 nay Trilisate Allergy Intermediate TRILISATE-r Verified 11/05/16 17:37 nay mometasone furoate Allergy Unknown Pt has no Verified 07/05/19 22:36 recollection of this iron dextran complex AdvReac Intermediate RASH Verified 07/05/19 22:36 adhesive AdvReac Mild Local rash Verified 07/05/19 22:36 with tape Ferric Oxide Allergy Severe VENOFER Uncoded 07/05/19 22:36 INFUSION-RASH,WEAKNESS,BLEEDING-HOSPITALIZED Home Medications Home Medications Medication Instructions Recorded Confirmed Type atorvastatin 10 mg tablet 10 mg PO QAM #90 tab 05/31/19 07/05/19 History bumetanide 1 mg tablet See Rx Instructions PO .COMPLEX 05/31/19 07/05/19 History tab metoprolol succinate ER 200 mg 100 mg PO BID tab 05/31/19 07/05/19 History tablet,extended release 24 hr omeprazole 20 mg capsule,delayed 20 mg PO BID PRN #60 cap 05/31/19 07/05/19 History release potassium chloride 20 mEq/15 mL See Rx Instructions PO DAILY #3800 05/31/19 07/05/19 Rx oral liquid ml acetaminophen [Tylenol Extra 1,000 mg PO Q6H PRN 07/05/19 07/05/19 History Strength] ascorbate calcium (vitamin C) 500 mg PO QAM 07/05/19 07/05/19 History cholecalciferol (vitamin D3) 2,000 units PO QAM 07/05/19 07/05/19 History cyanocobalamin (vitamin B-12) 1,000 mcg IM MONTHLY 07/05/19 07/05/19 History folic acid 1 mg PO QAM 07/05/19 07/05/19 History metolazone 5 mg PO DIRECTED PRN 07/05/19 07/05/19 History multivitamin with iron 1 tab PO QAM 07/05/19 07/05/19 History warfarin See Rx Instructions .ROUTE .COMPLEX 07/05/19 07/05/19 History Past Med/Surg History Medical History Atrial fibrillation ASCVD (arteriosclerotic cardiovascular disease) (Acute) Acquired claw toe of left foot (Acute) Acquired claw toe of right foot (Acute) CHF (congestive heart failure) (Acute) Callus (Acute) Controlled type 2 diabetes mellitus with diabetic peripheral angiopathy without gangrene (Acute) DM II (diabetes mellitus, type II), controlled (Acute) Diabetes mellitus with diabetic polyneuropathy (Acute) Diabetic neuropathy (Acute) HTN (hypertension) (Acute) Hyperlipidemia (Acute) Neuropathic ulcer of toe of left foot (Acute) Neuropathic ulcer of toe of right foot (Acute) Surgical aftercare, skin or subcutaneous tissue (Acute) H/O chest x-ray Surgical History S/P gastric bypass (Acute) H/O aortic valve replacement H/O hernia repair H/O mitral valve replacement H/O splenectomy History of knee replacement History of total abdominal hysterectomy Hx of appendectomy Hx of cholecystectomy Hx of tonsillectomy Family History Mother Congestive heart failure Diabetes Hypertension Cardiac disorder Brother Diabetes Polycythemia Pharyngeal neoplasm Pulmonary embolism Father Lung cancer Acute myocardial infarction Hypertension Cardiac disorder Social History Preferred Language: Occitan Communication Ability: Effective Visual Impairment: No Limitations Beliefs That Will Affect Care: None Current Living Situation: Spouse current occupational status: retired Feels Safe at Home: Yes Smoking Status: Never smoker Hx Alcohol Use: Yes Alcohol type: beer and other Alcohol type Comment: occassional mixed drink and beer Alcohol Intake Frequency: Holidays/Special Occasions Hx Substance Use: No Childhood Exposure to Second-Hand Smoke: No Other Diet Comment: pt watches diet intake s/p gastric bypass surgery caffeine: Yes during the past year weight has: decreased > 10 lbs Dental Care, Regularly: Yes Physical Activity Frequency: 3-4 Times per Week Seatbelt Use: always Sunscreen Use: Yes Review of Systems Review of Systems: All systems reviewed & are unremarkable except as noted in HPI & below Physical Exam Physical Exam: General: patient resting comfortably, NAD, non-toxic in appearance, AA&O x 4 Skin: warm, dry, chronic venous stasis changes on bilateral ankles, warm to touch, small ulcer on posterior left leg, no bleeding/drainage/erythema HEENT: NC/AT, PERRL, EOMI, anicteric sclera, conjunctiva without injection, external ear normal to inspection and nontender, nares patent, moist mucus membranes, dentition intact, no oropharyngeal lesions, neck supple, trachea midline, no LAD, no thyromegaly, no JVD Heart: +S1/S2, irregularly irregular, sounds consistent with mechanical heart valves Lungs: equal air entry bilaterally, no rales/rhonchi/wheezes Abd: +BS, soft, NT/ND, no masses/organomegaly/ascites Ext: warm, 2+ pulses in UE/LE bilaterally, +edema and chronic venous stasis changes Neuro: nonfocal, patient AA&O x 4, speech intact, no facial droop, moving all extremities on command with equal strength 5/5 Results & Data Vital Signs (Past 12 Hours) Vital Signs Temp Pulse Pulse Resp BP BP Pulse Ox 07/05/19 21:48 88 18 132/84 97 07/05/19 20:15 36.9 C 81 18 121/66 96 07/05/19 19:18 96 07/05/19 19:12 119 H 32 H 172/86 H 94 Laboratory Results Lab Results 07/05/19 07/05/19 07/05/19 Range/Units 19:32 19:32 19:32 WBC 12.97 H (4.8-10.8) K/uL RBC 4.34 (4.2-5.4) M/uL Hgb 10.8 L (12.0-16.0) g/dL POC Hgb (12.0-16.0) g/dl Hct 33.8 L (37-47) % POC Hct (37-47) % MCV 77.9 L (80-100) fL MCH 24.9 L (25-34) pg MCHC 32.0 (32-36) g/dL RDW Std Deviation 48.5 H (36.4-46.3) fL RDW Coeff of Donald 17.1 H (11.5-14.5) % Plt Count 437 H (130-400) K/uL MPV 9.0 (7.4-10.4) fL Immature Gran % (Auto) 0.9 % Neut % (Auto) 61.2 % Lymph % (Auto) 25.0 % Franklin % (Auto) 10.3 % Eos % (Auto) 2.2 % Baso % (Auto) 0.4 % Immature Gran # (Auto) 0.12 H (0.00-0.02) K/uL Neut # (Auto) 7.94 H (1.4-6.5) K/uL Lymph # (Auto) 3.24 (1.2-3.4) K/uL Franklin # (Auto) 1.33 H (0.11-0.59) K/uL Eos # (Auto) 0.29 (0-0.5) K/uL Baso # (Auto) 0.05 (0-0.2) K/uL PT 24.5 H (9.0-12.0) Seconds INR 2.6 H (0.9-1.1) APTT 38.1 H (21.0-31.0) Seconds PTT Ratio 1.4 POC Sodium (135-144) mEq/L Sodium 135 L (136-145) mmol/L POC Potassium (3.3-5.0) mEq/L Potassium 7.5 H* (3.5-5.1) mmol/L POC Chloride (101-112) mEq/L Chloride 107 (98-107) mmol/L Carbon Dioxide 25 (21-32) mmol/L POC Total CO2 (24-31) mEq/l Anion Gap 4.0 (3-11) POC Anion Gap (16-25) mmol/L POC BUN (7-18) mg/dl BUN 34 H (7-18) mg/dl Creatinine 1.22 H (0.6-1.2) mg/dl POC Creatinine (0.6-1.3) mg/dl Est Cr Clr Drug Dosing 54.3 ml/min Est GFR ( Amer) 50.9 Est GFR (Non-Af Amer) 43.9 BUN/Creatinine Ratio 27.5 H (10-20) Glucose 132 H (70-99) mg/dl POC Glucose (other) (70-99) mg/dl Calcium 9.0 (8.5-10.1) mg/dl POC Ioniz Calcium Crys (1.12-1.32) mmol/l Magnesium 2.4 (1.8-2.4) mg/dl Total Bilirubin 0.4 (0.2-1) mg/dl AST 43 H (15-37) U/L ALT 29 (12-78) U/L Alkaline Phosphatase 138 H (45-117) U/L Troponin I < 0.015 (0-0.045) ng/ml NT-Pro-B Natriuret Pep 1469 H (0-900) pg/ml Total Protein 7.9 (6.4-8.2) gm/dl Albumin 3.5 (3.4-5.0) gm/dl Globulin 4.4 H (2.5-4.0) gm/dl Albumin/Globulin Ratio 0.8 L (0.9-2) 07/05/19 Range/Units 20:43 WBC (4.8-10.8) K/uL RBC (4.2-5.4) M/uL Hgb (12.0-16.0) g/dL POC Hgb 10.9 L (12.0-16.0) g/dl Hct (37-47) % POC Hct 32 L (37-47) % MCV (80-100) fL MCH (25-34) pg MCHC (32-36) g/dL RDW Std Deviation (36.4-46.3) fL RDW Coeff of Donald (11.5-14.5) % Plt Count (130-400) K/uL MPV (7.4-10.4) fL Immature Gran % (Auto) % Neut % (Auto) % Lymph % (Auto) % Franklin % (Auto) % Eos % (Auto) % Baso % (Auto) % Immature Gran # (Auto) (0.00-0.02) K/uL Neut # (Auto) (1.4-6.5) K/uL Lymph # (Auto) (1.2-3.4) K/uL Franklin # (Auto) (0.11-0.59) K/uL Eos # (Auto) (0-0.5) K/uL Baso # (Auto) (0-0.2) K/uL PT (9.0-12.0) Seconds INR (0.9-1.1) APTT (21.0-31.0) Seconds PTT Ratio POC Sodium 134 L (135-144) mEq/L Sodium (136-145) mmol/L POC Potassium 7.3 H* (3.3-5.0) mEq/L Potassium (3.5-5.1) mmol/L POC Chloride 104 (101-112) mEq/L Chloride (98-107) mmol/L Carbon Dioxide (21-32) mmol/L POC Total CO2 24 (24-31) mEq/l Anion Gap (3-11) POC Anion Gap 15.0 L (16-25) mmol/L POC BUN 31 H (7-18) mg/dl BUN (7-18) mg/dl Creatinine (0.6-1.2) mg/dl POC Creatinine 1.0 (0.6-1.3) mg/dl Est Cr Clr Drug Dosing ml/min Est GFR ( Amer) Est GFR (Non-Af Amer) BUN/Creatinine Ratio (10-20) Glucose (70-99) mg/dl POC Glucose (other) 118 H (70-99) mg/dl Calcium (8.5-10.1) mg/dl POC Ioniz Calcium Crys 1.19 (1.12-1.32) mmol/l Magnesium (1.8-2.4) mg/dl Total Bilirubin (0.2-1) mg/dl AST (15-37) U/L ALT (12-78) U/L Alkaline Phosphatase (45-117) U/L Troponin I (0-0.045) ng/ml NT-Pro-B Natriuret Pep (0-900) pg/ml Total Protein (6.4-8.2) gm/dl Albumin (3.4-5.0) gm/dl Globulin (2.5-4.0) gm/dl Albumin/Globulin Ratio (0.9-2) Diagnostic Findings SINGLE VIEW CHEST CLINICAL HISTORY: Dyspnea. FINDINGS: An AP, portable, upright chest radiograph is compared to study dated 04/04/2019 and correlated with chest CT dated 05/05/2019. The examination is degraded by portable technique and patient rotation. The patient is status post midline sternotomy and cardiac valve surgery. The heart is enlarged and there is atherosclerotic calcification of the thoracic aorta. The pulmonary vasculature is noncongested. Enlargement of the main pulmonary arteries suggests pulmonary artery hypertension. Chronic interstitial thickening is similar to previous. There is bibasilar scarring/atelectasis. Pleural thickening at the left lung base is similar unchanged from prior studies. No airspace consolidation or large pleural effusion is identified. No pneumothorax is seen. The skeletal structures are osteopenic. The bony thorax is grossly intact. IMPRESSION: Cardiomegaly with no acute cardiopulmonary abnormality. Electronically signed by: Albert Pettit M.D. 07/05/2019 7:49 PM Dictated: 07/05/191946 Transcribed: 07/05/191946 ECG Additional Comments: AF at 74bpm, QRS=92, XIb=597, low voltage, incomplete RBBB, no peaked t-waves. No change from prior study Code Status & VTE Plan Code Status Full VTE Prophylaxis Plan VTE Prophylaxis will be ordered: Yes PG Care Time/CCT Total # of Minutes Spent Total Time Spent with Patient: Total time spent is greater than 50% in coordination of care (as documented) at patient's floor/unit and/or counseling patient: (1) Anemia Anemia type: iron deficiency Iron deficiency anemia type: unspecified iron deficiency Qualified Code(s): D50.9 - Iron deficiency anemia, unspecified (2) Chronic CHF Heart failure type: unspecified Qualified Code(s): I50.9 - Heart failure, unspecified (3) Hypertension Hypertension type: essential hypertension Qualified Code(s): I10 - Essential (primary) hypertension (4) Atrial fibrillation Atrial fibrillation type: chronic Qualified Code(s): I48.2 - Chronic atrial fibrillation
[2019-07-06] MEDS ORDERED: SODIUM CHLORIDE 0.9% 1000ML 1,000 ML IV SCH (00:15)
[2019-07-06] MEDS ORDERED: BUMETANIDE 2 MG in SYRINGE 0 ML IV ONE (01:00)
[2019-07-06] MEDS ORDERED: ACETAMINOPHEN 325 MG TAB PO PRN (01:13)
[2019-07-06 01:20] LABS: BUN Creatinine Ratio 28.3 (10-20); Calcium 9.4 mg/dl (8.5-10.1); Creatinine Clr Calc Pharmacy 60.2 ml/min; Est GFR (African American) 57.7; Est GFR (Non-African American) 49.8; Potassium 5.9 mmol/L (3.5-5.1)
[2019-07-06] MEDS ORDERED: ACETAMINOPHEN 325 MG TAB ONE (01:29)
[2019-07-06 01:38] LABS: Phosphorus 1.6 mg/dl (2.5-4.9)
[2019-07-06 01:44] LABS: Ferritin 143.7 ng/ml (8-388)
[2019-07-06 03:12] LABS: Appearance Urine Clear (Clear); Bilirubin Urine Negative (Negative); Blood Urine Negative (Negative); Color Urine Yellow; Glucose Urine UA Negative (Negative); Ketones Urine Negative (Negative); Leukocyte Esterase Urine Negative (Negative); Nitrite Urine Negative (Negative); Protein Urine Negative (Negative); Specific Gravity Urine 1.012 (1.000-1.030); Urobilinogen Urine Negative (Negative); pH Urine 7.5 (4.5-7.5)
[2019-07-06 04:43] LABS: INR 2.9 (0.9-1.1); Prothrombin Time 27.4 Seconds (9.0-12.0)
[2019-07-06 04:48] LABS: BUN Creatinine Ratio 29.6 (10-20); Calcium 8.6 mg/dl (8.5-10.1); Creatinine Clr Calc Pharmacy 61.3 ml/min; Est GFR (Non-African American) 50.9; Potassium 5.1 mmol/L (3.5-5.1)
[2019-07-06] MEDS: FOLIC ACID 1 MG TAB PO SCH (08:06)
[2019-07-06] MEDS: METOPROLOL SUCC 50MG EXT REL TAB PO SCH ×2 (08:06→16:31)
[2019-07-06] MEDS: ATORVASTATIN 10 MG TAB PO SCH (08:06)
[2019-07-06 08:49] LABS: BUN Creatinine Ratio 28.9 (10-20); Creatinine Clr Calc Pharmacy 63.1 ml/min; Est GFR (Non-African American) 52.6
[2019-07-06 13:05] LABS: BUN Creatinine Ratio 29.9 (10-20); Calcium 8.9 mg/dl (8.5-10.1); Est GFR (African American) 63.2; Est GFR (Non-African American) 54.5; Potassium 4.7 mmol/L (3.5-5.1)
[2019-07-06] MEDS ORDERED: WARFARIN SOD 5 MG TAB PO SCH (16:00)
[2019-07-06] MEDS ORDERED: Nursing to Pharmacy Communication ONE (16:32)
--- NOTE | 2019-07-06 16:51 | Hospitalist Progress Note ---
Date of Service July 06, 2019 Assessment & Plan (1) Hyperkalemia: Patient took additional doses of potassium at home driving potassium level of 7.5 Patient been treated and potassium is now 4.7 Continue to follow serial labs while inpatient At this point anticipate patient can probably be discharged home tomorrow Continue low K diet Continue home medications with exception of potassium (2) Atrial fibrillation: Patient in atrial fibrillation but rate controlled in the 70s Continue metoprolol Continue Coumadin INR 2.9 this morning Continue to follow on telemetry (3) jail (current) use 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: Aortic and mitral valve replacement Atrial fibrillation Continue home dose of Coumadin INR currently 2.9 Continue to follow (4) Anemia: Hemoglobin 10.8 Hemodynamically stable Continue folic acid Allergy listed to ferric oxide (Venofer) Negative for fecal occult blood Outpatient work-up and management (5) Chronic CHF: Restart Bumex 2 mg p.o. every morning starting tomorrow No significant edema on exam Oxygenation adequate on room air Physical exam with no crackles or evidence of pulmonary edema (6) Hypertension: Hemodynamically stable Continue metoprolol twice daily Restart Bumex tomorrow morning Continue to follow on telemetry (7) S/P aortic valve replacement: Continue Coumadin INR 2.9 (8) DVT prophylaxis: Anticoagulated with Coumadin for aortic valve and mitral valve replacement as well as atrial fibrillation INR therapeutic Increase activity as tolerated Please refer to Dr. James's addendum for further recommendations Subjective Attending: Dr. James This is a 74-year-old female that was admitted last evening and found to have hyperkalemia. Reportedly she started a new job at [email or web address] and [employer]. When she called into her physician's office she was told that this is probably due to low potassium. The patient had potassium on hand at home and took 2 additional doses. She presented the emergency department and was treated for hyperkalemia. The potassium level has continued to improve and is now at 4.7. Patient has no chest pain or tightness. She has no shortness of breath. She does report a 10 pound weight gain at home. The patient also has a pressure sore on the back of her left calf which has been improving per the patient's report. The patient was seen by wound care nurse today and the open wound has been dressed. Patient denies any asymmetrical edema. She currently has no leg cramping or pain since admission. The patient states that she had some chills last night. They are resolved. She has no fever, chills, sweats, or rigorsr throughout the day today. She had no chest pain or tightness. She has no shortness of breath. She has no cough or sputum production. She has no back pain or flank pain. The patient has no other acute complaints. Review of Systems Review of Systems: All systems reviewed & are unremarkable except as noted in HPI & below Musculoskeletal: Leg cramping has resolved. No unusual edema. No asymmetrical lower extremity edema. Physical Exam Physical Exam: GENERAL : No acute distress. Pleasant, patient seen laying in bed EYES: No icterus, gaze conjugate NOSE: No evidence of epistaxis MOUTH: No lesions or candidiasis NECK: Supple LUNGS: CTA B/L, no wheezes, rales or rhonchi HEART: Irregular, irregular, rate controlled in the 70s ABDOMEN: Soft, NT, ND, BS Present EXTREMITIES: No LE edema, pedal pulses intact and equal bilaterally. Dressing in place on the left calf for healing pressure sore NEURO: A&OX3 Results & Data Vital Signs (Past 12 Hours) Vital Signs Temp Pulse Pulse Resp BP Pulse Ox 07/06/19 16:25 78 07/06/19 15:17 36.7 C 84 20 121/77 97 07/06/19 11:16 37.1 C 72 17 125/77 95 07/06/19 10:07 93 H 07/06/19 07:34 36.6 C 72 20 121/74 96 Laboratory Results 07/05/19 19:32 07/06/19 12:24 Laboratory Tests 07/05/19 07/06/19 07/06/19 19:32 00:23 04:19 Potassium 7.5 H* 5.9 H D 5.1 07/06/19 07/06/19 08:08 12:24 Potassium 5.0 4.7 Diagnostic Findings SINGLE VIEW CHEST CLINICAL HISTORY: Dyspnea. FINDINGS: An AP, portable, upright chest radiograph is compared to study dated 04/04/2019 and correlated with chest CT dated 05/05/2019. The examination is degraded by portable technique and patient rotation. The patient is status post midline sternotomy and cardiac valve surgery. The heart is enlarged and there is atherosclerotic calcification of the thoracic aorta. The pulmonary vasculature is noncongested. Enlargement of the main pulmonary arteries suggests pulmonary artery hypertension. Chronic interstitial thickening is similar to previous. There is bibasilar scarring/atelectasis. Pleural thickening at the left lung base is similar unchanged from prior studies. No airspace consolidation or large pleural effusion is identified. No pneumothorax is seen. The skeletal structures are osteopenic. The bony thorax is grossly intact. IMPRESSION: Cardiomegaly with no acute cardiopulmonary abnormality. Electronically signed by: Albert Pettit M.D. 07/05/2019 7:49 PM PG Care Time/CCT Total # of Minutes Spent Total Time Spent with Patient: Total time spent is greater than 50% in coordination of care (as documented) at patient's floor/unit and/or counseling patient: 35 (1) Chronic CHF Heart failure type: unspecified Qualified Code(s): I50.9 - Heart failure, unspecified (2) Atrial fibrillation Atrial fibrillation type: chronic Qualified Code(s): I48.2 - Chronic atrial fibrillation (3) Hypertension Hypertension type: essential hypertension Qualified Code(s): I10 - Essential (primary) hypertension
[2019-07-06] MEDS ORDERED: METOPROLOL SUCC 50MG EXT REL TAB PO SCH (17:00)
[2019-07-07 06:35] LABS: INR 3.5 (0.9-1.1); Prothrombin Time 32.4 Seconds (9.0-12.0)
[2019-07-07] MEDS ORDERED: METOPROLOL SUCC 50MG EXT REL TAB PO SCH (08:00)
[2019-07-07] MEDS: FOLIC ACID 1 MG TAB PO SCH (08:16)
[2019-07-07] MEDS: ATORVASTATIN 10 MG TAB PO SCH (08:17)
[2019-07-07] MEDS ORDERED: BUMETANIDE 1 MG TAB PO SCH (09:00)
[2019-07-07] MEDS ORDERED: CALCIUM 600MG + VIT D 400 IU TAB PO SCH (09:00)
--- NOTE | 2019-07-07 14:40 | Discharge Summary ---
Date of Service July 07, 2019 Admission HPI Per Admitting Provider Eden Wagner is a pleasant 74yo C female with multiple medical comorbidities presenting with hyperkalemia. Patient recently started working at [employer]. She worked yesterday and began developing cramping in her legs. Her leg cramping continued through the night. Patient also with chills and shortness of breath. She has a cough productive for clear sputum. No dysuria. No abdominal pain/nausea/vomiting/diarrhea or constipation. No additional complaints. She called her physician's office and was told that her leg cramping may be secondary to low potassium as she has a history of the same. She took two bebeto ttles of potassium. Of note, patient checks her weight daily. She is instructed to take her diuretics as needed based on her weight. She takes either Bumex or Metolazone. When she takes her Bumex she takes 1 bottle of potassium and when she takes metolazone she takes 2 bottles. She states that she has not been taking her potassium as prescribed over the past few weeks. She has instead been eating a lot of fruit, bananas and watermelon and using a lot of salt substitute. ER Course: Calcium gluconate, D50, insulin, sodium bicarbonate Principal Diagnosis none Discharge Exam Constitutional WD/WN, vitals as above Eyes PERRL, conjunctivae normal, anicteric sclerae ENMT external ear and nose normal, oropharynx normal Neck trachea midline, no thyromegaly Respiratory normal respiratory effort, lungs clear to auscultation Cardiovascular RRR, no murmur, no edema Rate/Rhythm: regular rate Heart Sounds: normal S1 and normal S2 Extremities: + edema (1+edema bilaterally) Chest (Breasts) normal inspection/palpation of breasts Gastrointestinal (Abdomen) normal bowel sounds, soft, nontender, no hepatosplenomegaly Musculoskeletal no cyanosis or clubbing, extremities motor strength 5/5 Skin no rashes, warm and dry Neurologic patellar DTR's 2+ bilat, sensation intact Psychiatric A+Ox3, euthymic affect Genitourinary no vaginal lesions, no adnexal mass Lymphatic no cervical or axillary lymphadenopathy Discharge Data Allergies Allergy/AdvReac Type Severity Reaction Status Date / Time choline salicylate Allergy Intermediate TRILISATE-r Verified 07/05/19 22:36 nay magnesium salicylate Allergy Intermediate TRILISATE-r Verified 07/05/19 22:36 nay Trilisate Allergy Intermediate TRILISATE-r Verified 11/05/16 17:37 nay mometasone furoate Allergy Unknown Pt has no Verified 07/05/19 22:36 recollection of this iron dextran complex AdvReac Intermediate RASH Verified 07/05/19 22:36 adhesive AdvReac Mild Local rash Verified 07/05/19 22:36 with tape Ferric Oxide Allergy Severe VENOFER Uncoded 07/05/19 22:36 INFUSION-RASH,WEAKNESS,BLEEDING-HOSPITALIZED Consultations 07/05/19 21:50 ED Decision to Admit Stat Hospital Course (1) Hyperkalemia: Patient with K=7.5, confirmed with repeat testing. Renal function is near baseline. Patient has been eating a lot of fruit, using potassium-based salt substitute and took some supplemental K this evening due to muscle cramping. She has no EKG evidence of hyperkalemia. Treatment initiated in ER with calcium gluconate, insulin/D50 and NaHCO3. -Admit to PCU, telemetry monitoring -Repeat BMP q 4 hours to monitor K -Bumex 2mg IV x 1 dose -Low K diet -Potassium improved to 4.7 today -Pt advised to eat less potassium rich food, and take 1/2 of her current potassium dose. -Needs to see PCP within 3 days and to recheck potassium. (2) Atrial fibrillation: Rate controlled AF. 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 Does not appear to be volume overloaded at present -Bumex 2mg IV as above -Monitor I/Os (6) Hypertension: Blood pressure well controlled -Continue metoprolol -Continue to monitor (7) S/P aortic valve replacement: Patient on Coumadin anticoagulation, INR=2.6 -Continue home regimen. Patient is unsure of how she takes her Coumadin. Thinks she alternates 2.5mg with 5mg. Her is to bring in her medication card from home. -INR in AM (8) DVT prophylaxis: Total Time Total Time Spent Total Time Spent (In Minutes): >30 min Discharge Plan Discharge Items Patient Disposition: Home - Self-Care Reason For Visit: HYPERKALEMIA Discharge Diagnosis: hyeperkalemia Discharge Goals: Decrease discomfort, Diagnostic testing and Improve disease control Activity: Resume your previous activity Non-emergency contact: Primary Care Provider Call non-emergency contact if: your pain is concerning for you, you have a fever and your temperature is above 100.5 Follow-up/Referrals: Fernie Rodriguez MD [Primary Care Provider] - Diet: Heart Healthy, Low Fat and Low Sodium (2gm) Addtl Provider Instructions: Keep you potassium between 3.5-5.1. This is a normal value. Please cut down your potassium intake to half of what you were taking before and check with your doctor your potassium in 3 days. Prescriptions: New potassium chloride 20 mEq/15 mL liquid 10 meq PO DAILY Qty: 450 RF: 0 Continued atorvastatin 10 mg tablet 10 mg PO QAM Qty: 90 RF: 0 metoprolol succinate 200 mg tablet extended release 24 hr 100 mg PO BID RF: 0 omeprazole 20 mg capsule,delayed release(DR/EC) 20 mg PO BID PRN (Reason: Acid Reflux) Qty: 60 RF: 0 metolazone 5 mg tablet 5 mg PO DIRECTED PRN (Reason: Weight Gain) RF: 0 acetaminophen [Tylenol Extra Strength] 500 mg tablet 1,000 mg PO Q6H PRN (Reason: Pain) RF: 0 cyanocobalamin (vitamin B-12) 1,000 mcg/mL solution 1,000 mcg IM MONTHLY RF: 0 ascorbate calcium (vitamin C) 500 mg tablet 500 mg PO QAM RF: 0 warfarin 5 mg tablet See Rx Instructions .ROUTE .COMPLEX RF: 0 folic acid 1 mg tablet 1 mg PO QAM RF: 0 multivitamin with iron tablet 1 tab PO QAM RF: 0 cholecalciferol (vitamin D3) 2,000 unit capsule 2,000 units PO QAM RF: 0 warfarin 2.5 mg See Rx Instructions .ROUTE .COMPLEX RF: 0 bumetanide 1 mg tablet See Rx Instructions PO .COMPLEX Qty: 0 RF: 0 Discontinued potassium chloride 20 mEq/15 mL liquid See Rx Instructions PO DAILY Qty: 3800 RF: 3 Stand-Alone Forms: [facility] Discharge Orders: Discharge Order (Routine); Ordered 07/07/19 Ordered By: Valente Hall Admission Data Admit Date/Time: 07/05/19 22:54 Attending Provider: Valente Hall Admit Provider: Lynnette Monroe Primary Care Provider: Fernie Rodriguez Other Providers: Lynnette Monroe Service: Telemetry Medical Other Interventions: Discharge Summary Assessment (RN) Last Done: 07/07/19 14:28 DC Date/Time DO NOT enter until pt leaves facility: 07/07/19 14:37
--- NOTE | 2019-07-07 14:42 | Hospitalist Progress Note ---
Date of Service July 07, 2019 Assessment & Plan (1) Hyperkalemia: Patient with K=7.5, confirmed with repeat testing. Renal function is near baseline. Patient has been eating a lot of fruit, using potassium-based salt substitute and took some supplemental K this evening due to muscle cramping. She has no EKG evidence of hyperkalemia. Treatment initiated in ER with calcium gluconate, insulin/D50 and NaHCO3. -Admit to PCU, telemetry monitoring -Repeat BMP q 4 hours to monitor K -Bumex 2mg IV x 1 dose -Low K diet -Potassium improved to 4.7 today -Pt advised to eat less potassium rich food, and take 1/2 of her current potassium dose. -Needs to see PCP within 3 days and to recheck potassium. (2) Atrial fibrillation: Rate controlled AF. 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 Does not appear to be volume overloaded at present -Bumex 2mg IV as above -Monitor I/Os (6) Hypertension: Blood pressure well controlled -Continue metoprolol -Continue to monitor (7) S/P aortic valve replacement: Patient on Coumadin anticoagulation, INR=2.6 -Continue home regimen. Patient is unsure of how she takes her Coumadin. Thinks she alternates 2.5mg with 5mg. Her is to bring in her medication card from home. -INR in AM (8) DVT prophylaxis: Subjective Pt seen and examined at the bedside. K is now 4.7 -improved and within the normal range. Pt said she does not have any issues at this time and wants to be d/c home. Hemodynamically stable, Denies fever , chills, chest pain, SOB, abdominal pain, frequency and urgency, hemoptysis, hematemesis, hematochezia or melena. Review of Systems Review of Systems: All systems reviewed & are unremarkable except as noted in HPI & below Physical Exam Constitutional: WD/WN, vitals as above Eyes: PERRL, conjunctivae normal, anicteric sclerae ENMT: external ear and nose normal, oropharynx normal Neck: trachea midline, no thyromegaly Respiratory: normal respiratory effort, lungs clear to auscultation Cardiovascular: Rate/Rhythm: regular rate and + irregularly irregular Heart Sounds: normal S1 and normal S2 Extremities: + edema (1+edema bilaterally) Chest (Breasts): normal inspection/palpation of breasts Gastrointestinal (Abdomen): normal bowel sounds, soft, nontender, no hepatosplenomegaly Musculoskeletal: no cyanosis or clubbing, extremities motor strength 5/5 Skin: no rashes, warm and dry Neurologic: patellar DTR's 2+ bilat, sensation intact Psychiatric: A+Ox3, euthymic affect Genitourinary: no vaginal lesions, no adnexal mass Lymphatic: no cervical or axillary lymphadenopathy Results & Data Vital Signs (Past 12 Hours) Vital Signs Temp Pulse Pulse Resp BP Pulse Ox 07/07/19 14:28 37.3 C 86 20 130/76 96 07/07/19 12:30 37.3 C 86 20 130/76 96 07/07/19 09:07 82 07/07/19 07:26 36.6 C 74 17 123/78 94 07/07/19 04:00 36.5 C 71 20 141/72 H 97 PG Care Time/CCT Total # of Minutes Spent Total Time Spent with Patient: Total time spent is greater than 50% in coordination of care (as documented) at patient's floor/unit and/or counseling patient: (1) Chronic CHF Heart failure type: unspecified Qualified Code(s): I50.9 - Heart failure, unspecified (2) Atrial fibrillation Atrial fibrillation type: chronic Qualified Code(s): I48.2 - Chronic atrial fibrillation (3) Hypertension Hypertension type: essential hypertension Qualified Code(s): I10 - Essential (primary) hypertension
[2019-07-09] MEDS ORDERED: WARFARIN SOD 2.5 MG TAB PO SCH (16:00)
== END 2019-07-07 14:37 | disposition home or self-care (01) | DRG 918 ==
LOC: ED 19:10 → 2N 22:54 → SUATTDRO 22:54 → 2N 23:34

== ENCOUNTER 2020-04-10 12:25 | Inpatient (IN) ==
--- NOTE | 2020-04-10 12:47 | Emergency Department Note ---
Impression & Plan Acute GI bleeding, Hypokalemia, Symptomatic anemia ED Provider Note NAME: ADRIAN COY AGE: 74 SEX: F : 1945 ARRIVES VIA: Walk-In INFORMANT: Patient, ED PROVIDER(S): Michel Joshua MD Chief Complaint: Weakness, low hemoglobin, Dr. referred HPI: Patient does present with increasing weakness. The patient states that she has been feeling this over about a month's time. The patient was receiving iron infusions but was switched over to folic acid supplementation. Patient does complain of some occasional chest tightness that is exertional. Patient denies nausea vomiting. Patient does relate that she has had dark stools over the last 3 to 4 days. Patient denies any dysuria or hematuria. The patient denies any cough. Patient believes that she might have some right lower quadrant pain which is sharp in nature and only worsened with palpation. Patient states that the weakness has been progressively worse. Nothing is really made it better but activity does make it worse. Patient does not present with cough, fevers, chills, coronavirus contacts, coronavirus testing, or recent travel. Patient is on Coumadin for history of A. fib. Patient does see Dr. Lee and has a history of AVR and MVR. ROS: See HPI for pertinent positives and negatives. A total of 10 systems were reviewed and otherwise negative. Past medical history: See below Surgical history: See below Social history: See below Physical Exam: GENERAL: NAD, non-toxic. Wearing glasses and a mask. EYE EXAM: Normal conjunctiva. PERRL, no anisocoria and EOM's grossly intact w/o pain. NECK: Supple, no nuchal rigidity, no adenopathy, non-tender. No signs of meningismus. LUNGS: Clear to auscultation. Normal chest wall mechanics. HEART: Irregularly irregular, no MRG. ABDOMEN: Abdomen soft, non-tender, normo-active bowel sounds, no masses, no rebound or guarding. BACK: No CVA TTP. SKIN: No rashes and no bruising. UPPER EXTREMITIES: Upper extremities are grossly normal. LOWER EXTREMITIES: Grossly normal, no edema. NEURO EXAM: A&O x3, cranial nerves II-XII grossly intact, normal speech, moves all 4 extremities on command w/o issue. Differential diagnoses: Infection, dehydration, metabolic abnormality, hypo/h yperglycemia, electrolyte disturbance, anemia, hypoxia, cardiac sources, intracerebral event, toxicologic, neurologic, as well as other pathologies. Course: Patient was seen and evaluated the bedside. Full history physical exam was performed. EKG: Education: Weakness, chest pain Likely atrial flutter with a 3-1 block, ventricular rate of 72, normal QRS normal axis T wave version in lead III with Q waves inferiorly Imaging Studies: Radiology results as stated below per my review in the radiologist's interpretation: Cardiac monitoring: An order was placed for continuous cardiac monitoring. The monitor shows a rate of 88 with a irregular rhythm. MDM: Patient does present with concern for weakness DrSrinivasan alfred and occasional chest pain. Patient did have blood work completed along with rectal exam and type and screen. She also did relate that she has some chest pain. Patient has not had any nausea or vomiting. Patient does have a mild white count of 12. Patient denied any infectious symptoms. Hemoglobin is 7.8 with mild thrombocytosis. The patient's INR is elevated 2.8. Patient does have an elevated BUN to creatinine ratio. He has had elevated BUNs in the past but this is potentially higher. Given concern for GI bleed the patient was ordered a Protonix drip. I do not believe she needs to necessarily be transfused at this moment and apparently she does have an antib ayala which she cannot be transfused until later this evening. I did speak the on-call hospitalist Dr. Maite [facility] who agreed to further evaluate treat patient. Patient was subsequently admitted to the medicine service. 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 Neuropathic ulcer of toe of left foot (Acute) Neuropathic ulcer of toe of right foot (Resolved) Obesity Permanent atrial fibrillation Surgical aftercare, skin or subcutaneous tissue (Resolved) Surgical History H/O hernia repair H/O splenectomy History of knee replacement History of total abdominal hysterectomy Hx of appendectomy Hx of cholecystectomy Hx of tonsillectomy S/P aortic valve replacement (2012) S/P gastric bypass (Resolved) S/P mitral valve replacement (2012) S/P pericardial window creation (2012) Status post panniculectomy Family History Mother Congestive heart failure Diabetes Hypertension Cardiac disorder Brother Diabetes Polycythemia Pharyngeal neoplasm Pulmonary embolism Father Lung cancer Acute myocardial infarction Hypertension Cardiac disorder Myocardial infarction Denies family history of Ovarian cancer Crohn's disease Colorectal cancer Social History Preferred Language: Azeri Communication Ability: Effective Visual Impairment: No Limitations Hearing Ability: Normal Press Breaker Required: No Beliefs That Will Affect Care: None marital status: Current Living Situation: Spouse current occupational status: retired Other Information That Helps Us Care for You: No Feels Safe at Home: Yes Safety Concerns: Feels Safe At This Time Smoking Status: Never smoker Hx Alcohol Use: Yes Alcohol type: hard liquor Alcohol type Comment: occassional mixed drink and beer Alcohol Intake Frequency: Holidays/Special Occasions Hx Substance Use: No Childhood Exposure to Second-Hand Smoke: No Diet Comment: pt watches diet intake s/p gastric bypass surgery caffeine: Yes during the past year weight has: decreased > 10 lbs Dental Care, Regularly: Yes Physical Activity Frequency: 3-4 Times per Week Seatbelt Use: always Sunscreen Use: Yes Allergies Allergies Allergy/AdvReac Type Severity Reaction Status Date / Time iron dextran complex Allergy Severe RASH Verified 04/10/20 12:55 choline salicylate Allergy Intermediate TRILISATE-r Verified 04/10/20 12:55 nay magnesium salicylate Allergy Intermediate TRILISATE-r Verified 04/10/20 12:55 nay Trilisate Allergy Intermediate TRILISATE-r Verified 11/05/16 17:37 nay mometasone furoate Allergy Unknown Pt has no Verified 04/10/20 12:55 recollection of this Ferric Oxide Allergy Severe VENOFER Uncoded 04/10/20 12:55 INFUSION-RASH,WEAKNESS,BLEEDING-HOSPITALIZED Home Meds Home Medications Medication Instructions Recorded Confirmed metoprolol succinate 200 mg 100 mg PO BID tab 05/31/19 04/10/20 tablet,extended release 24 hr cholecalciferol (vitamin D3) 2,000 units PO QAM 07/05/19 04/10/20 cyanocobalamin (vitamin B-12) 1,000 mcg IM MONTHLY 07/05/19 04/10/20 folic acid 1 mg PO QAM 07/05/19 04/10/20 multivitamin with iron 1 tab PO QAM 07/05/19 04/10/20 atorvastatin 10 mg tablet 10 mg PO QAM #90 tab 08/27/19 04/10/20 bumetanide 1 mg tablet 4 mg PO QAM tab 10/03/19 04/10/20 calcium carbonate 500 mg calcium 500 mg PO DAILY 02/05/20 04/10/20 (1,250 mg) tablet warfarin 2.5 - 5 mg PO UD 02/15/20 04/10/20 Previous Rx's Medication Instructions Recorded levalbuterol tartrate 45 2 puffs INH Q6H PRN #15 gm 02/13/20 mcg/actuation aerosol inhaler potassium chloride 20 mEq/15 mL 20 meq PO DAILY #3800 ml 03/21/20 oral liquid Results & Data (ED) Vital Signs Vital Signs - 24 hr 04/10/20 12:26 04/10/20 13:17 04/10/20 13:18 Temperature 36.5 C Temperature Source Oral Pulse Rate 88 Pulse Rate [Apical] 81 Pulse Rate from SpO2 Sensor Respiratory Rate 20 24 Respiratory Effort / Characteristics Non-Labored Spontaneous Respiratory Depth Normal Blood Pressure 150/81 H Blood Pressure [Right Arm] 124/72 Blood Pressure Mean 104 Blood Pressure Mean [Right Arm] 89 Blood Pressure Position Sitting Pulse Oximetry 100 100 100 Oxygen Delivery Method Room Air Room Air Room Air Sepsis Recent Fever Within 48 Hours No Sepsis New/Unexplained Change in Mental Status No Sepsis Action Taken by Nursing No Action Required 04/10/20 13:30 04/10/20 14:03 04/10/20 14:30 Temperature Temperature Source Pulse Rate 78 73 80 Pulse Rate [Apical] Pulse Rate from SpO2 Sensor 77 75 80 Respiratory Rate 19 21 17 Respiratory Effort / Characteristics Respiratory Depth Blood Pressure 127/73 157/72 H 154/92 H Blood Pressure [Right Arm] Blood Pressure Mean 89 117 106 Blood Pressure Mean [Right Arm] Blood Pressure Position Pulse Oximetry 98 100 100 Oxygen Delivery Method Room Air Room Air Sepsis Recent Fever Within 48 Hours Sepsis New/Unexplained Change in Mental Status Sepsis Action Taken by Nursing 04/10/20 15:00 Temperature Temperature Source Pulse Rate 72 Pulse Rate [Apical] Pulse Rate from SpO2 Sensor Respiratory Rate 22 Respiratory Effort / Characteristics Respiratory Depth Blood Pressure Blood Pressure [Right Arm] Blood Pressure Mean Blood Pressure Mean [Right Arm] Blood Pressure Position Pulse Oximetry Oxygen Delivery Method Room Air Sepsis Recent Fever Within 48 Hours Sepsis New/Unexplained Change in Mental Status Sepsis Action Taken by Intermediate Medications Current Medication List: was personally reviewed by me Laboratory Data Attestation: I reviewed the patient's lab results. Result diagrams: 04/10/20 13:07 04/10/20 13:07 Lab Results 04/10/20 04/10/20 04/10/20 Range/Units 13:07 13:07 13:07 WBC 12.58 H (4.8-10.8) K/uL RBC 3.83 L (4.2-5.4) M/uL Hgb 7.8 L (12.0-16.0) g/dL Hct 26.7 L (37-47) % MCV 69.7 L (80-100) fL MCH 20.4 L (25-34) pg MCHC 29.2 L (32-36) g/dL RDW Std Deviation 45.6 (36.4-46.3) fL RDW Coeff of Donald 18.1 H (11.5-14.5) % Plt Count 554 H (130-400) K/uL MPV 8.8 (7.4-10.4) fL Immature Gran % (Auto) 0.6 % Neut % (Auto) 57.6 % Lymph % (Auto) 28.2 % [place] % (Auto) 11.0 % Eos % (Auto) 1.7 % Baso % (Auto) 0.9 % Immature Gran # (Auto) 0.08 H (0.00-0.02) K/uL Neut # (Auto) 7.24 H (1.4-6.5) K/uL Lymph # (Auto) 3.55 H (1.2-3.4) K/uL [place] # (Auto) 1.39 H (0.11-0.59) K/uL Eos # (Auto) 0.21 (0-0.5) K/uL Baso # (Auto) 0.11 (0-0.2) K/uL Hypochromasia Present Microcytosis Present Target Cells 1+ PT 28.1 H (9.0-12.0) Seconds INR 2.8 H (0.9-1.1) APTT 35.6 H (21.0-31.0) Seconds PTT Ratio 1.3 Sodium (136-145) mmol/L Potassium (3.5-5.1) mmol/L Chloride (98-107) mmol/L Carbon Dioxide (21-32) mmol/L Anion Gap (3-11) BUN (7-18) mg/dl Creatinine (0.6-1.2) mg/dl Est Cr Clr Drug Dosing ml/min Est GFR ( Amer) Est GFR (Non-Af Amer) BUN/Creatinine Ratio (10-20) Glucose (70-99) mg/dl Calcium (8.5-10.1) mg/dl Phosphorus (2.5-4.9) mg/dl Magnesium (1.8-2.4) mg/dl Iron (35-150) mcg/dl TIBC (250-450) mcg/dl Transferrin (200-360) mg/dl Transferrin % Sat (15-50) % Ferritin (8-388) ng/ml Total Bilirubin (0.2-1) mg/dl AST (15-37) U/L ALT (12-78) U/L Alkaline Phosphatase (45-117) U/L Troponin I (0-0.045) ng/ml Total Protein (6.4-8.2) gm/dl Albumin (3.4-5.0) gm/dl Globulin (2.5-4.0) gm/dl Albumin/Globulin Ratio (0.9-2) Urine Color Urine Appearance (Clear) Urine pH (4.5-7.5) Ur Specific [place] (1.000-1.030) Urine Protein (Negative) Urine Glucose (UA) (Negative) Urine Ketones (Negative) Urine Blood (Negative) Urine Nitrite (Negative) Urine Bilirubin (Negative) Urine Urobilinogen (Negative) Ur Leukocyte Esterase (Negative) Urine WBC (Auto) (0-5) /hpf Urine RBC (Auto) (0-4) /hpf U Hyaline Cast (Auto) (0-5) /lpf U Epithel Cells (Auto) (0-5) /lpf Urine Bacteria (Auto) (Negative) Blood Type O Positive Antibody Screen POSITIVE A 04/10/20 04/10/20 04/10/20 Range/Units 13:07 13:07 13:45 WBC (4.8-10.8) K/uL RBC (4.2-5.4) M/uL Hgb (12.0-16.0) g/dL Hct (37-47) % MCV (80-100) fL MCH (25-34) pg MCHC (32-36) g/dL RDW Std Deviation (36.4-46.3) fL RDW Coeff of Donald (11.5-14.5) % Plt Count (130-400) K/uL MPV (7.4-10.4) fL Immature Gran % (Auto) % Neut % (Auto) % Lymph % (Auto) % [place] % (Auto) % Eos % (Auto) % Baso % (Auto) % Immature Gran # (Auto) (0.00-0.02) K/uL Neut # (Auto) (1.4-6.5) K/uL Lymph # (Auto) (1.2-3.4) K/uL [place] # (Auto) (0.11-0.59) K/uL Eos # (Auto) (0-0.5) K/uL Baso # (Auto) (0-0.2) K/uL Hypochromasia Microcytosis Target Cells PT (9.0-12.0) Seconds INR (0.9-1.1) APTT (21.0-31.0) Seconds PTT Ratio Sodium 135 L (136-145) mmol/L Potassium 3.0 L D (3.5-5.1) mmol/L Chloride 93 L (98-107) mmol/L Carbon Dioxide 30 (21-32) mmol/L Anion Gap 11.0 (3-11) BUN 60 H (7-18) mg/dl Creatinine 1.27 H (0.6-1.2) mg/dl Est Cr Clr Drug Dosing 49.5 ml/min Est GFR ( Amer) 48.5 Est GFR (Non-Af Amer) 41.8 BUN/Creatinine Ratio 47.3 H (10-20) Glucose 127 H (70-99) mg/dl Calcium 9.5 (8.5-10.1) mg/dl Phosphorus 4.1 (2.5-4.9) mg/dl Magnesium 2.6 H (1.8-2.4) mg/dl Iron 15 L (35-150) mcg/dl TIBC 509 H (250-450) mcg/dl Transferrin 404 H (200-360) mg/dl Transferrin % Sat 3 L (15-50) % Ferritin 55.3 (8-388) ng/ml Total Bilirubin 0.5 (0.2-1) mg/dl AST 31 (15-37) U/L ALT 30 (12-78) U/L Alkaline Phosphatase 131 H (45-117) U/L Troponin I < 0.015 (0-0.045) ng/ml Total Protein 8.2 (6.4-8.2) gm/dl Albumin 3.7 (3.4-5.0) gm/dl Globulin 4.5 H (2.5-4.0) gm/dl Albumin/Globulin Ratio 0.8 L (0.9-2) Urine Color Yellow Urine Appearance Clear (Clear) Urine pH 6.5 (4.5-7.5) Ur Specific [place] 1.012 (1.000-1.030) Urine Protein Negative (Negative) Urine Glucose (UA) Negative (Negative) Urine Ketones Negative (Negative) Urine Blood Negative (Negative) Urine Nitrite Negative (Negative) Urine Bilirubin Negative (Negative) Urine Urobilinogen Negative (Negative) Ur Leukocyte Esterase Trace H (Negative) Urine WBC (Auto) 1-5 (0-5) /hpf Urine RBC (Auto) 0-4 (0-4) /hpf U Hyaline Cast (Auto) 1-5 (0-5) /lpf U Epithel Cells (Auto) 10-20 H (0-5) /lpf Urine Bacteria (Auto) Negative (Negative) Blood Type Antibody Screen Administered Medications Pantoprazole Sodium 40 mg/ (Dextrose) 100 mls @ 20 mls/hr IV Q5H MARCI Stop: 05/10/20 13:58 Last Admin: 04/10/20 15:31 Dose: 8 mg/hr, 20 mls/hr Documented by: [id number] Ferric Sodium Gluconate 125 mg (/ Sodium Chloride) 110 mls @ 110 mls/hr IV TODAY MARCI Stop: 04/17/20 17:29 Last Infusion: 04/10/20 19:03 Dose: 0 mls/hr Documented by: [id number] Admin: 04/10/20 18:05 Dose: 110 mls/hr Documented by: [id number] Discontinued Medications Pantoprazole Sodium (Protonix Bolus/Drip) 0 mls @ 1 mls/hr IV ONE STA Stop: 04/10/20 13:45 Last Admin: 04/10/20 15:50 Dose: Not Given Documented by: [id number] Pantoprazole Sodium 80 mg/ (Dextrose) 120 mls @ 400 mls/hr IV NOW ONE Stop: 04/10/20 14:01 Last Infusion: 04/10/20 15:30 Dose: 0 mls/hr Documented by: [id number] Admin: 04/10/20 14:21 Dose: 400 mls/hr Documented by: [id number] Potassium Chloride (K Viktor / Wtr) 10 meq in 100 mls @ 100 mls/hr IV Q1H STA Stop: 04/10/20 16:09 Last Infusion: 04/10/20 17:04 Dose: 0 mls/hr Documented by: [id number] Infusion: 04/10/20 16:14 Dose: 75 mls/hr Documented by: [id number] Admin: 04/10/20 15:51 Dose: 100 mls/hr Documented by: [id number] Blood Pressure Blood Pressure Findings: Elevated blood pressure Blood Pressure Disposition: further management by hospitalist Discharge Plan Visit Data *Final* Discharge Date/Time: 04/10/20 18:53 Chief Complaint: GI Assessment Stated Complaint: BLACK STOOL, BLOOD COUNT DOWN ED Provider: Michel Joshua Discharge Problem: Acute GI bleeding, Hypokalemia, Symptomatic anemia Patient Disposition: Admitted As Inpatient Discharge Instructions Interventions: ED Discharge Assessment Last Done: 04/10/20 18:53
[2020-04-10 13:33] LABS: Basophils # (auto) 0.11 K/uL (0-0.2); Basophils % (auto) 0.9 %; Eosinophils # (auto) 0.21 K/uL (0-0.5); Eosinophils % (auto) 1.7 %; Hematocrit (blood only) 26.7 % (37-47); Hemoglobin 7.8 g/dL (12.0-16.0); Immature Granulocytes # (auto) 0.08 K/uL (0.00-0.02); Immature Granulocytes % (auto) 0.6 %; Lymphocytes # (auto) 3.55 K/uL (1.2-3.4); Lymphocytes % (auto) 28.2 %; Mean Corpuscular Hemoglobin 20.4 pg (25-34); Mean Corpuscular Hgb Conc 29.2 g/dL (32-36); Mean Corpuscular Volume 69.7 fL (80-100); Mean Platelet Volume 8.8 fL (7.4-10.4); Monocytes # (auto) 1.39 K/uL (0.11-0.59); Neutrophils # (auto) 7.24 K/uL (1.4-6.5); Neutrophils % (auto) 57.6 %; Platelet Count 554 K/uL (130-400); RDW Coefficient of Variation 18.1 % (11.5-14.5); RDW Standard Deviation 45.6 fL (36.4-46.3); Red Blood Count 3.83 M/uL (4.2-5.4); White Blood Count 12.58 K/uL (4.8-10.8)
[2020-04-10] MEDS ORDERED: PANTOPRAZOLE BOLUS/DRIP 1 EA IV STA (13:44)
[2020-04-10] MEDS ORDERED: PANTOprazole 80 MG in DEXTROSE 5% 100 ML IV ONE (13:44)
[2020-04-10 13:52] LABS: INR 2.8 (0.9-1.1); Partial Thromboplastin Ratio 1.3; Partial Thromboplastin Time 35.6 Seconds (21.0-31.0); Prothrombin Time 28.1 Seconds (9.0-12.0)
[2020-04-10 13:57] LABS: Alanine Aminotransferase 30 U/L (12-78); Albumin Globulin Ratio 0.8 (0.9-2); Albumin Level 3.7 gm/dl (3.4-5.0); Alkaline Phosphatase 131 U/L (45-117); Aspartate Aminotransferase 31 U/L (15-37); BUN Creatinine Ratio 47.3 (10-20); Bilirubin,Total 0.5 mg/dl (0.2-1); Blood Urea Nitrogen 60 mg/dl (7-18); Calcium 9.5 mg/dl (8.5-10.1); Carbon Dioxide 30 mmol/L (21-32); Chloride 93 mmol/L (98-107); Creatinine Clr Calc Pharmacy 49.5 ml/min; Est GFR (African American) 48.5; Est GFR (Non-African American) 41.8; Globulin 4.5 gm/dl (2.5-4.0); Glucose 127 mg/dl (70-99); Magnesium 2.6 mg/dl (1.8-2.4); Phosphorus 4.1 mg/dl (2.5-4.9); Sodium 135 mmol/L (136-145); Total Protein 8.2 gm/dl (6.4-8.2); Troponin I < 0.015 ng/ml (0-0.045)
[2020-04-10 13:59] LABS: Hypochromasia Present; Microcytosis Present; Target Cells 1+
--- NOTE | 2020-04-10 14:36 | History & Physical Report ---
Date of Service April 10, 2020 Assessment & Plan (1) Melena: 74 female h/o ulcers following gastric bypass surgery. Last colonoscopy/EGD reported to be approx 4 years ago, tx'd with IV iron and protonix with Dr. Brizuela --> Per records, EGD 11/06/16 for coffee ground emesis which did not show ulcers * Admit telemetry * Serial blood counts * Protonix gtt * GI consult -- appreciate assistance * Iron studies pending * IV Iron ordered * NPO * IVF - NS @ 80cc/hr -- monitor for s/sx volume overload * Monitor daily weights, I&O (2) Anemia: * Hx of. Had received iron transfusions and oral supplementation in the past but has not been taking in quite some time * Iron studies pending * Will transfuse with IV supplementation (checking with pharmacy first as listed "ferric oxide" but in comments states venofer infusion- rash, weakness, bleeding -- patient unsure) * Repeat CBC this evening * CBC in AM (3) Weakness: * Likely secondary to #1, however will check UA/CXR * PT/OT (4) STACIE (acute kidney injury): * Cr 1.27, eGFR 49.5 * Baseline Cr appears to be ~1.0 * NS @ 80ml/hr x 1 L * Continue to monitor (5) CHF (congestive heart failure): * 2nd to valvular disease. Chronic. Follows with Dr. Lee. * Dry weight 212-213lb -- reported 215lb at home this morning. By our record ~218lb. Patient reports taking 5mg metolazone on almost weekly bases when weights are up ~10lb. * Daily weights, I&O * Continue home bumex 4mg daily (6) Permanent atrial fibrillation: * Follows locally with Dr. Lee. * On warfarin -- 5mg MWF, 2.5mg SSTR * Coumadin on hold in setting of GIB -- repeat INR in AM (7) S/P mitral valve replacement: * H/o. Noted (8) S/P aortic valve replacement: * H/o. Noted (9) Hypertension: * Chronic. 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 INR 2.8 -- on hold currently in setting of GIB * Repeat INR in AM -- if needed, can reverse with Vit K for scope * SCDs History of Present Illness Primary Care Provider: Fernie Rodriguez MD 74 female with PMHx significant for CAD (aortic and mitral valve replacement), afib (on coumadin), anemia, HTN, CHF, pre-DM, hx gastric bypass, GERD presented to the emergency department with progressive weakness and fatigue as well as low blood count. She states she has been feeling week for the past several weeks with associated shortness of breath. Patient did have history of ulcers following her gastric bypass surgery. Last ulcer about 3-4 years ago with reported EGD/Colonoscopy. Has been having dark tarry stools for the last 3-4 days. Always dark in color, denies BRBPR. Denies emesis. Confirms intermittent nausea depending on what she eats. For instance, chicken noodle soup did not agree with her and she threw it up but yesterday she had broth and was fine. She states she has followed with Dr. Sutton in the past for iron transfusions and then oral supplementation but that it has been years since she has seen him. She states she had chills the day before yesterday. States she felt like she couldn't get warm. She states she turned the heat up to 74 degrees and was still requiring multiple blankets to warm up. She states she had the flu earlier this year and then was told she developed a pneumonia that lasted two weeks. She continues to voice anosmia since the earlier this year and states she believes she may still be positive for COVID-19 but her test was negative. She was treated with levofloxacin but states she believes it was a viral cause, as it lasted much longer. Denies sputum production at this time. She notes her shortness of breath has been going on for several years, but has gotten worse over the past month. She states she was to get labs prior to her next appointment with Dr. Lee, but she had been feeling increasingly weak and decided to get them done early. She states she received a call from the PA at the office to go to the hospital for an infusion. She states she believes she had blood infusions in the past but states her hemoglobin had dropped in the past and it came back up with iron infusions alone. She states she did take her dose of bumex today, 4mg, for a weight of 215lb, and states her dry weight is typically 212-213lbs. She states when she is approximately up 10lb, she takes a dose of metolazone, which occurs approximately once weekly. When she takes her 5mg PO metolazone, she states she increases the amount of potassium she takes because she deals with low potassium. ER Course: WBC 12.5k, H/h 7.8/26.7, Plt 554, INR 2.8, Na 135, K 3.0, Cl 93, Bun 60, Cr 1.27, Mag 2.6, Trop <0.015 EKG 72bpm, incomplete RBBB, Nonspecific T wave abn in lateral leads. Fecal occult ordered. Allergies Allergy/AdvReac Type Severity Reaction Status Date / Time iron dextran complex Allergy Severe RASH Verified 04/10/20 12:55 choline salicylate Allergy Intermediate TRILISATE-r Verified 04/10/20 12:55 nay magnesium salicylate Allergy Intermediate TRILISATE-r Verified 04/10/20 12:55 nay Trilisate Allergy Intermediate TRILISATE-r Verified 11/05/16 17:37 nay mometasone furoate Allergy Unknown Pt has no Verified 04/10/20 12:55 recollection of this Ferric Oxide Allergy Severe VENOFER Uncoded 04/10/20 12:55 INFUSION-RASH,WEAKNESS,BLEEDING-HOSPITALIZED Home Medications Home Medications Medication Instructions Recorded Confirmed Type metoprolol succinate 200 mg 100 mg PO BID tab 05/31/19 04/10/20 History tablet,extended release 24 hr cholecalciferol (vitamin D3) 2,000 units PO QAM 07/05/19 04/10/20 History cyanocobalamin (vitamin B-12) 1,000 mcg IM MONTHLY 07/05/19 04/10/20 History folic acid 1 mg PO QAM 07/05/19 04/10/20 History multivitamin with iron 1 tab PO QAM 07/05/19 04/10/20 History atorvastatin 10 mg tablet 10 mg PO QAM #90 tab 08/27/19 04/10/20 History bumetanide 1 mg tablet 4 mg PO QAM tab 10/03/19 04/10/20 History calcium carbonate 500 mg calcium 500 mg PO DAILY 02/05/20 04/10/20 History (1,250 mg) tablet levalbuterol tartrate 45 2 puffs INH Q6H PRN #15 gm 02/13/20 04/10/20 Rx mcg/actuation aerosol inhaler warfarin 2.5 - 5 mg PO UD 02/15/20 04/10/20 History potassium chloride 20 mEq/15 mL 20 meq PO DAILY #3800 ml 03/21/20 04/10/20 Rx oral liquid Past Med/Surg History Medical History Acquired claw toe of left foot (Inactive) Acquired claw toe of right foot (Inactive) Anemia ASCVD (arteriosclerotic cardiovascular disease) (Chronic) Atrial fibrillation Callus (Resolved) CHF (congestive heart failure) (Chronic) Controlled type 2 diabetes mellitus with diabetic peripheral angiopathy without gangrene Diabetes mellitus with diabetic polyneuropathy (Chronic) Diabetic neuropathy (Chronic) DM II (diabetes mellitus, type II), controlled (Chronic) HTN (hypertension) (Chronic) Hyperkalemia Hyperlipidemia (Chronic) Hypertension Hypokalemia intermediate (current) use 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 Neuropathic ulcer of toe of left foot (Acute) Neuropathic ulcer of toe of right foot (Resolved) Obesity Permanent atrial fibrillation Surgical aftercare, skin or subcutaneous tissue (Resolved) Surgical History H/O hernia repair H/O splenectomy History of knee replacement History of total abdominal hysterectomy Hx of appendectomy Hx of cholecystectomy Hx of tonsillectomy S/P aortic valve replacement (2011) S/P gastric bypass (Resolved) S/P mitral valve replacement (2011) S/P pericardial window creation (2011) Status post panniculectomy Family History Mother Congestive heart failure Diabetes Hypertension Cardiac disorder Brother Diabetes Polycythemia Pharyngeal neoplasm Pulmonary embolism Father Lung cancer Acute myocardial infarction Hypertension Cardiac disorder Myocardial infarction Denies family history of Ovarian cancer Crohn's disease Colorectal cancer Social History Preferred Language: Maori Communication Ability: Effective Visual Impairment: No Limitations Hearing Ability: Normal Material Carrier Required: No Beliefs That Will Affect Care: None marital status: Current Living Situation: Spouse current occupational status: retired Other Information That Helps Us Care for You: No Feels Safe at Home: Yes Safety Concerns: Feels Safe At This Time Smoking Status: Never smoker Hx Alcohol Use: Yes Alcohol type: hard liquor Alcohol type Comment: occassional mixed drink and beer Alcohol Intake Frequency: Holidays/Special Occasions Hx Substance Use: No Childhood Exposure to Second-Hand Smoke: No Diet Comment: pt watches diet intake s/p gastric bypass surgery caffeine: Yes during the past year weight has: decreased > 10 lbs Dental Care, Regularly: Yes Physical Activity Frequency: 3-4 Times per Week Seatbelt Use: always Sunscreen Use: Yes Review of Systems Review of Systems: All systems reviewed & are unremarkable except as noted in HPI & below Constitutional: + chills and + fatigue; no fever Eyes: no diplopia and no spots in vision Ear, Nose, Mouth, Throat: no sore throat and no dysphagia Respiratory: + dyspnea and + dyspnea on exertion; no cough and no change in sputum Cardiovascular: + palpitations (occassional) and + edema (at baseline); no chest pain Gastrointestinal: + nausea (intermittent), + vomiting (last month) and + melena; no abdominal pain, no coffee ground emesis and no hematemesis Genitourinary: no dysuria and no urinary frequency Musculoskeletal: no swelling and no problem reported Integumentary: no rash and no lesions Neurologic: no syncope and no headache(s) Psychiatric: no hopelessness and no suicidal ideation Endocrine: + fatigue; no polyphagia Hematologic / Lymphatic: no coagulopathy and no unexplained weight loss Allergy / Immunological: + dyspnea; no cough Physical Exam Constitutional: WD/WN, vitals as above + obese; no acute distress general pallor Eyes: + anicteric sclerae and PERRL ENMT: external ear and nose normal, oropharynx normal Neck: trachea midline, no thyromegaly Respiratory: normal respiratory effort; no respiratory distress and no labored breathing Auscultation: + diminished lung sounds and + crackles (faint crackles posterior lung mathis); no wheezes Cardiovascular: Rate/Rhythm: + irregularly irregular Heart Sounds: + murmur (JADE) Vessels: no JVD Extremities: + edema (non-pitting bilateral LE with baseline erythema per pt) Gastrointestinal (Abdomen): normal bowel sounds, soft, nontender, no hepatosplenomegaly Musculoskeletal: no cyanosis or clubbing, extremities motor strength 5/5 Skin: no rashes, warm and dry Neurologic: PERRL, EOMI, accommodation nl, no face palsy, no dysarthria Psychiatric: A+Ox3, euthymic affect Lymphatic: no cervical or axillary lymphadenopathy Results & Data Results & Data ([facility]) Vital Signs (Past 12 Hours) Vital Signs Temp Pulse Pulse Resp BP BP Pulse Ox 04/10/20 14:03 73 21 157/72 H 100 04/10/20 13:30 78 19 127/73 98 04/10/20 13:18 100 04/10/20 13:17 81 24 124/72 100 04/10/20 12:26 36.5 C 88 20 150/81 H 100 Laboratory Results 04/10/20 04/10/20 04/10/20 Range/Units 13:07 13:07 13:07 WBC 12.58 H (4.8-10.8) K/uL RBC 3.83 L (4.2-5.4) M/uL Hgb 7.8 L (12.0-16.0) g/dL Hct 26.7 L (37-47) % MCV 69.7 L (80-100) fL MCH 20.4 L (25-34) pg MCHC 29.2 L (32-36) g/dL RDW Std Deviation 45.6 (36.4-46.3) fL RDW Coeff of Donald 18.1 H (11.5-14.5) % Plt Count 554 H (130-400) K/uL MPV 8.8 (7.4-10.4) fL Immature Gran % (Auto) 0.6 % Neut % (Auto) 57.6 % Lymph % (Auto) 28.2 % [place] % (Auto) 11.0 % Eos % (Auto) 1.7 % Baso % (Auto) 0.9 % Immature Gran # (Auto) 0.08 H (0.00-0.02) K/uL Neut # (Auto) 7.24 H (1.4-6.5) K/uL Lymph # (Auto) 3.55 H (1.2-3.4) K/uL [place] # (Auto) 1.39 H (0.11-0.59) K/uL Eos # (Auto) 0.21 (0-0.5) K/uL Baso # (Auto) 0.11 (0-0.2) K/uL Hypochromasia Present Microcytosis Present Target Cells 1+ PT 28.1 H (9.0-12.0) Seconds INR 2.8 H (0.9-1.1) APTT 35.6 H (21.0-31.0) Seconds PTT Ratio 1.3 Sodium 135 L (136-145) mmol/L Potassium 3.0 L D (3.5-5.1) mmol/L Chloride 93 L (98-107) mmol/L Carbon Dioxide 30 (21-32) mmol/L Anion Gap 11.0 (3-11) BUN 60 H (7-18) mg/dl Creatinine 1.27 H (0.6-1.2) mg/dl Est Cr Clr Drug Dosing 49.5 ml/min Est GFR ( Amer) 48.5 Est GFR (Non-Af Amer) 41.8 BUN/Creatinine Ratio 47.3 H (10-20) Glucose 127 H (70-99) mg/dl Calcium 9.5 (8.5-10.1) mg/dl Phosphorus 4.1 (2.5-4.9) mg/dl Magnesium 2.6 H (1.8-2.4) mg/dl Total Bilirubin 0.5 (0.2-1) mg/dl AST 31 (15-37) U/L ALT 30 (12-78) U/L Alkaline Phosphatase 131 H (45-117) U/L Troponin I < 0.015 (0-0.045) ng/ml Total Protein 8.2 (6.4-8.2) gm/dl Albumin 3.7 (3.4-5.0) gm/dl Globulin 4.5 H (2.5-4.0) gm/dl Albumin/Globulin Ratio 0.8 L (0.9-2) Blood Type Antibody Screen Antibody Identification Antibody ID Comment 04/10/20 Range/Units 13:07 WBC (4.8-10.8) K/uL RBC (4.2-5.4) M/uL Hgb (12.0-16.0) g/dL Hct (37-47) % MCV (80-100) fL MCH (25-34) pg MCHC (32-36) g/dL RDW Std Deviation (36.4-46.3) fL RDW Coeff of Donald (11.5-14.5) % Plt Count (130-400) K/uL MPV (7.4-10.4) fL Immature Gran % (Auto) % Neut % (Auto) % Lymph % (Auto) % [place] % (Auto) % Eos % (Auto) % Baso % (Auto) % Immature Gran # (Auto) (0.00-0.02) K/uL Neut # (Auto) (1.4-6.5) K/uL Lymph # (Auto) (1.2-3.4) K/uL [place] # (Auto) (0.11-0.59) K/uL Eos # (Auto) (0-0.5) K/uL Baso # (Auto) (0-0.2) K/uL Hypochromasia Microcytosis Target Cells PT (9.0-12.0) Seconds INR (0.9-1.1) APTT (21.0-31.0) Seconds PTT Ratio Sodium (136-145) mmol/L Potassium (3.5-5.1) mmol/L Chloride (98-107) mmol/L Carbon Dioxide (21-32) mmol/L Anion Gap (3-11) BUN (7-18) mg/dl Creatinine (0.6-1.2) mg/dl Est Cr Clr Drug Dosing ml/min Est GFR ( Amer) Est GFR (Non-Af Amer) BUN/Creatinine Ratio (10-20) Glucose (70-99) mg/dl Calcium (8.5-10.1) mg/dl Phosphorus (2.5-4.9) mg/dl Magnesium (1.8-2.4) mg/dl Total Bilirubin (0.2-1) mg/dl AST (15-37) U/L ALT (12-78) U/L Alkaline Phosphatase (45-117) U/L Troponin I (0-0.045) ng/ml Total Protein (6.4-8.2) gm/dl Albumin (3.4-5.0) gm/dl Globulin (2.5-4.0) gm/dl Albumin/Globulin Ratio (0.9-2) Blood Type O Positive Antibody Screen POSITIVE A Antibody Identification Pending Antibody ID Comment Pending Supervising Physician Co-Signing Physician Notes Attending Attestation & Admission Note: Pt seen/examined, chart reviewed, care plan d/w RAMESH Tovar. I agree w/ the bliss components of her documentation. 74yo female with gastric bypass status, a.fib, AVR/MVR on coumadin, chronic diastolic CHF, splenectomy status, T2DM - presenting with progressive weakness for several weeks in the setting of worsening anemia and melena stools. PMH, PSH, allergies, meds, sochx, famhx, ros - reviewed VSS, no fever gen - obese, NAD skin - pallor mouth - MMM neck - no JVD heart - irregular, mech valve closure sound, 2/6 systolic murmur LSB lungs - CTA b/l abd - soft NT ND ext - about 1+ edema b/l; pulses 2+ b/l Hb 7.8 Cr 1.2 INR 2.8 A/P: 1. acute blood loss anemia - melena stools suggests slow upper GI bleeding 2. permanent a.fib on coumadin 3. AVR, MVR - mechanical 4. gastric bypass status 5. chronic diastolic CHF - compensated would not reverse coumadin with vitamin K at this time given her valve replacements are mechanical; GI bleeding is slow, and H/H are low but about the same as 24 hours prior -- simply hold coumadin serial H/H's INR am GI consult for consideration of EGD patient wants to receive IV Fe in janneth of PRBCs at this time; reasonable, but suspect she may still need blood products PPI drip other plans per Ms Guy Arora MD PG Care Time/CCT Total # of Minutes Spent Total Time Spent with Patient: Total time spent is greater than 50% in coordination of care (as documented) at patient's floor/unit and/or counseling patient: Coding Level of Care Code 67864 Initial Inpt Care Lvl 3 Diagnoses Melena K92.1 Anemia D64.9 Weakness R53.1 STACIE (acute kidney injury) N17.9 CHF (congestive heart failure) I50.9 Permanent atrial fibrillation I48.21 S/P mitral valve replacement Z95.2 S/P aortic valve replacement Z95.2 Hypertension I10 Hypertension type: essential hypertension intermediate (current) use 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 Z79.01 H/O gastric bypass Z98.84 H/O splenectomy Z90.81 GERD (gastroesophageal reflux disease) K21.9 Hypokalemia E87.6 DVT prophylaxis Z29.9 (1) Hypertension Hypertension type: essential hypertension Qualified Code(s): I10 - Essential (primary) hypertension
[2020-04-10] MEDS ORDERED: POTASSIUM CHLORIDE / WTR 10 MEQ/100 ML PLCT IV STA (15:10)
[2020-04-10] MEDS: PANTOprazole 40 MG in DEXTROSE 5% 100 ML IV SCH ×3 (15:31→23:50)
[2020-04-10 15:49] LABS: Appearance Urine Clear (Clear); Bacteria Urine Automated Negative (Negative); Bilirubin Urine Negative (Negative); Blood Urine Negative (Negative); Color Urine Yellow; Glucose Urine UA Negative (Negative); Ketones Urine Negative (Negative); Leukocyte Esterase Urine Trace (Negative); Nitrite Urine Negative (Negative); Protein Urine Negative (Negative); RBC Urine Automated 0-4 /hpf (0-4); Specific Gravity Urine 1.012 (1.000-1.030); Urobilinogen Urine Negative (Negative); pH Urine 6.5 (4.5-7.5)
[2020-04-10 16:20] LABS: Ferritin 55.3 ng/ml (8-388)
--- NOTE | 2020-04-10 16:21 | Electrocardiogram Report ---
Test Reason : Blood Pressure : / mmHG Vent. Rate : 072 BPM Atrial Rate : 072 BPM P-R Int : 000 ms QRS Dur : 092 ms QT Int : 444 ms P-R-T Axes : 000 -14 -01 degrees QTc Int : 486 ms Atrial fibrillation Incomplete right bundle branch block Abnormal ECG When compared with ECG of 15-FEB-2020 15:59, Nonspecific T wave abnormality, improved in Lateral leads Confirmed by Ramesh Whitney ([id number]) on 04/10/2020 4:21:32 PM Referred By: REFERRED SELF Confirmed By:Francisco Whitney
[2020-04-10] MEDS ORDERED: SODIUM FERRIC GLUCONATE 125 MG in 0.9 % SODIUM CHLORIDE 100 ML IV SCH (16:30)
[2020-04-10] MEDS ORDERED: ACETAMINOPHEN 325 MG TAB PO PRN (19:35)
--- NOTE | 2020-04-10 19:45 | XRay Report ---
TWO VIEW CHEST CLINICAL HISTORY: Generalized weakness. Chills. Dyspnea on exertion. FINDINGS: PA and lateral chest radiographs are compared to study dated 02/15/2020 and correlated with chest CT dated 05/05/2019. The patient is status post midline sternotomy and cardiac valve surgeries. The heart is enlarged noting atherosclerotic calcification of the thoracic aorta. The pulmonary vascu lature is noncongested. The mitral annulus is densely calcified. Chronic interstitial thickening is s imilar to previous. There is bibasilar scarring/atelectasis. No airspace consolidation or large pleur al effusion is identified. There is no pneumothorax. The skeletal structures are osteopenic. The bony thorax is grossly intact. Degenerative change and hyperkyphosis is noted in the thoracic spine. Surg ical clips are noted in the upper abdomen. IMPRESSION: Cardiomegaly and chronic parenchymal changes as above with no active disease in the chest . ACT 112: Negative or not required by law. Electronically signed by: Albert Pettit M.D. 04/10/2020 7:44 PM
[2020-04-10] MEDS: SODIUM CHLORIDE 0.9% 1000ML 1,000 ML IV SCH (20:44)
[2020-04-10 20:47] LABS: Basophils # (auto) 0.15 K/uL (0-0.2); Basophils % (auto) 1.2 %; Eosinophils # (auto) 0.43 K/uL (0-0.5); Eosinophils % (auto) 3.5 %; Hemoglobin 7.3 g/dL (12.0-16.0); Immature Granulocytes # (auto) 0.07 K/uL (0.00-0.02); Immature Granulocytes % (auto) 0.6 %; Lymphocytes # (auto) 3.13 K/uL (1.2-3.4); Lymphocytes % (auto) 25.4 %; Mean Corpuscular Hemoglobin 20.2 pg (25-34); Mean Corpuscular Hgb Conc 29.2 g/dL (32-36); Mean Corpuscular Volume 69.1 fL (80-100); Mean Platelet Volume 8.8 fL (7.4-10.4); Monocytes # (auto) 1.34 K/uL (0.11-0.59); Monocytes % (auto) 10.9 %; Neutrophils # (auto) 7.21 K/uL (1.4-6.5); Neutrophils % (auto) 58.4 %; Platelet Count 523 K/uL (130-400); RDW Coefficient of Variation 17.9 % (11.5-14.5); RDW Standard Deviation 45.4 fL (36.4-46.3); Red Blood Count 3.62 M/uL (4.2-5.4); White Blood Count 12.33 K/uL (4.8-10.8)
[2020-04-10] MEDS: METOPROLOL SUCC 50MG EXT REL TAB PO SCH (20:48)
[2020-04-10] MEDS: POTASSIUM CHLORIDE / WTR 10 MEQ/100 ML PLCT IV SCH ×2 (20:58→22:13)
[2020-04-10 21:20] LABS: Hypochromasia Present; Microcytosis Present; Target Cells 1+
[2020-04-11] MEDS: PANTOprazole 40 MG in DEXTROSE 5% 100 ML IV SCH ×3 (03:56→13:49)
[2020-04-11] MEDS: METOPROLOL SUCC 50MG EXT REL TAB PO SCH ×2 (08:06→22:06)
[2020-04-11] MEDS: SODIUM CHLORIDE 0.9% 1000ML 1,000 ML IV SCH ×2 (08:08→22:05)
[2020-04-11 08:26] LABS: Hematocrit (blood only) 23.2 % (37-47); Hemoglobin 6.9 g/dL (12.0-16.0); Mean Corpuscular Hemoglobin 20.7 pg (25-34); Mean Corpuscular Hgb Conc 29.7 g/dL (32-36); Mean Corpuscular Volume 69.7 fL (80-100); Mean Platelet Volume 8.7 fL (7.4-10.4); Nucleated RBC # (auto) 0.03 K/uL (0-0); Nucleated RBC % (auto) 0.3 %; Platelet Count 489 K/uL (130-400); RDW Coefficient of Variation 17.8 % (11.5-14.5); RDW Standard Deviation 45.4 fL (36.4-46.3); Red Blood Count 3.33 M/uL (4.2-5.4); White Blood Count 10.06 K/uL (4.8-10.8)
[2020-04-11 08:37] LABS: INR 2.3 (0.9-1.1); Prothrombin Time 23.3 Seconds (9.0-12.0)
[2020-04-11 08:44] LABS: Acanthocytes 1+; Basophils # (auto) 0.11 K/uL (0-0.2); Basophils % (auto) 1.1 %; Eosinophils # (auto) 0.25 K/uL (0-0.5); Eosinophils % (auto) 2.5 %; Immature Granulocytes # (auto) 0.05 K/uL (0.00-0.02); Immature Granulocytes % (auto) 0.5 %; Lymphocytes # (auto) 2.48 K/uL (1.2-3.4); Lymphocytes % (auto) 24.7 %; Microcytosis Present; Neutrophils # (auto) 6.37 K/uL (1.4-6.5); Neutrophils % (auto) 63.2 %; Target Cells 2+
[2020-04-11] MEDS ORDERED: SODIUM CHLORIDE 0.9% 250 ML IV PRN (08:46)
[2020-04-11 08:54] LABS: Albumin Level 3.2 gm/dl (3.4-5.0); BUN Creatinine Ratio 46.5 (10-20); Calcium 9.2 mg/dl (8.5-10.1); Creatinine Clr Calc Pharmacy 56.3 ml/min; Est GFR (African American) 57.7; Est GFR (Non-African American) 49.8; Magnesium 2.4 mg/dl (1.8-2.4); Potassium 2.9 mmol/L (3.5-5.1)
[2020-04-11 08:56] LABS: Albumin Globulin Ratio 0.9 (0.9-2); Bilirubin,Total 0.6 mg/dl (0.2-1); Globulin 3.6 gm/dl (2.5-4.0); Total Protein 6.8 gm/dl (6.4-8.2)
[2020-04-11] MEDS ORDERED: BUMETANIDE 2 MG in SYRINGE 0 ML IV ONE (09:00)
[2020-04-11] MEDS: POTASSIUM CHLORIDE / WTR 10 MEQ/100 ML PLCT IV SCH ×6 (09:33→20:28)
--- NOTE | 2020-04-11 11:07 | Hospitalist Progress Note ---
Date of Service April 11, 2020 Assessment & Plan (1) Melena: 74 female h/o ulcers following gastric bypass surgery. Last colonoscopy/EGD reported to be approx 4 years ago, tx'd with IV iron and protonix with Dr. Brizuela --> Per records, EGD 11/06/16 for coffee ground emesis which did not show ulcers * H/h dropped to 6.9/23.2 --> will transfuse 1 unit now, repeat CBC this afternoon * Continue Protonix gtt * GI consult -- appreciate assistance -- for scope today with Dr. Brizuela * Iron studies consistent with iron deficiency anemia -- iron low at 15, TIBC and transferrin high at 509, 404 respectively. Trans sat 3% * IV Iron x 1 -- ordered daily for total of 8 doses * NPO * IVF - NS @ 80cc/hr -- monitor for s/sx volume overload. Currently 211lb, dry weight 211-212lb * Monitor daily weights, I&O (2) Acute blood loss anemia: * Secondary to suspected GIB with reported melena * Serial H/h * PRBC x 1 unit now * IV iron x 8 doses * Iron studies with iron def anemia * Scope with Dr. Brizuela today (3) Anemia: * Hx of. Had received iron transfusions and oral supplementation in the past but has not been taking in quite some time. * Iron studies c/w iron def. anemia * Ferrlicit as above-- patient with reported adverse reaction to Venofer in 2013 * H/h dropped to 6.9/23.2 * CBC in AM (4) Chronic diastolic (congestive) heart failure: * 2nd to valvular disease. Chronic. Follows with Dr. Lee. * Dry weight 212-213lb. Patient reports taking 5mg metolazone on almost weekly bases when weights are up ~10lb. * Daily weights, I&O * Weight currently 211lb * Home bumex (4mg PO daily) ordered as 2mg IV daily as patient currently NPO (5) Weakness: * Likely secondary to #1, however will check UA/CXR * PT/OT (6) STACIE (acute kidney injury): * RESOLVED * Cr 1.27, eGFR 49.5 on admission. Baseline Cr appears to be ~1.0 * NS as above * Cr 1.10 on AM labs * Continue to monitor (7) Permanent atrial fibrillation: * Follows locally with Dr. Lee. * On warfarin -- 5mg MWF, 2.5mg SSTR * Coumadin on hold in setting of GIB * INR 2.3 -- per discussion with Dr. Brizuela, ok to proceed without Vit K for procedure (8) S/P mitral valve replacement: * H/o. Noted (9) S/P aortic valve replacement: * H/o. Noted (10) Hypertension: * Chronic. 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 After scope, will provide PO supplementation * Continue to monitor (16) DVT prophylaxis: * On coumadin. INR subtherapeutic today at 2.3 -- on hold currently in setting of GIB * Repeat INR in AM * Would resume following procedure as patient with aortic/mitral valves * SCDs Dispo: PRBC, scope with Dr. Brizuela today, serial h/h, likely 1-2 nights Admission and Anticipated Discharge Date Admission Date: April 10, 2020 Supervising Physician Co-Signing Physician Notes Attending Attestation - Chart reviewed in detail, care plan d/w RAMESH Tovar. I agree w/ the bliss components of her documentation. EGD today with anastomotic ulcer but no signs of bleeding. Mild acute blood loss anemia. Tx 1 unit PRBCs with IV diuretic following. Cont IV Fe - tolerating thus far. Repeat labs in am. Valente GAYTAN MD Subjective Patient seen this morning. No further reported melena, although patient states she has not yet had a bowel movement since she got to the hospital. She denies any palpitations or worsening shortness of breath/dyspnea, despite drop in h/h. Although patient states she would prefer to stick with the iron infusions, she is agreeable to receiving one unit for hemoglobin of 6.9. Denies any fevers, chills, chest pain, abdominal pain, n/v at this time. Plans for NPO and scope with Dr. Brizuela later today. All questions/concerns addressed. Review of Systems Review of Systems: All systems reviewed & are unremarkable except as noted in HPI & below Constitutional: + fatigue and + weakness; no fever and no chills Respiratory: + dyspnea and + dyspnea on exertion; no cough and no chest congestion Cardiovascular: no chest pain, no palpitations and no edema Gastrointestinal: no abdominal pain, no nausea and no vomiting Genitourinary: no dysuria and no urinary frequency Integumentary: no rash and no lesions Physical Exam Constitutional: WD/WN, vitals as above + obese; no acute distress general pallor Eyes: + anicteric sclerae and PERRL ENMT: external ear and nose normal, oropharynx normal Neck: trachea midline, no thyromegaly Respiratory: normal respiratory effort; no respiratory distress and no labored breathing Auscultation: + diminished lung sounds and + crackles (faint bibasilar crackles); no wheezes Cardiovascular: Rate/Rhythm: + irregularly irregular Heart Sounds: + murmur (JADE) Vessels: no JVD Extremities: + edema (non-pitting bilateral LE with baseline erythema per pt) Gastrointestinal (Abdomen): normal bowel sounds, soft, nontender, no hepatosplenomegaly Musculoskeletal: no cyanosis or clubbing, extremities motor strength 5/5 Skin: no rashes, warm and dry Neurologic: PERRL, EOMI, accommodation nl, no face palsy, no dysarthria Psychiatric: A+Ox3, euthymic affect Lymphatic: no cervical or axillary lymphadenopathy Results & Data Results & Data ([facility]) Vital Signs (Past 12 Hours) Vital Signs Temp Pulse Pulse Resp BP Pulse Ox 04/11/20 08:06 109/69 04/11/20 07:41 36.8 C 74 18 97/60 L 96 04/11/20 07:11 65 04/11/20 04:54 36.6 C 65 16 96/56 L 95 04/10/20 23:42 36.4 C L 82 16 106/63 95 Laboratory Results 04/11/20 04/11/20 04/11/20 Range/Units 08:04 08:04 08:04 WBC 10.06 (4.8-10.8) K/uL RBC 3.33 L (4.2-5.4) M/uL Hgb 6.9 L* (12.0-16.0) g/dL Hct 23.2 L (37-47) % MCV 69.7 L (80-100) fL MCH 20.7 L (25-34) pg MCHC 29.7 L (32-36) g/dL RDW Std Deviation 45.4 (36.4-46.3) fL RDW Coeff of Donald 17.8 H (11.5-14.5) % Plt Count 489 H (130-400) K/uL MPV 8.7 (7.4-10.4) fL Immature Gran % (Auto) 0.5 % Neut % (Auto) 63.2 % Lymph % (Auto) 24.7 % [place] % (Auto) 8.0 % Eos % (Auto) 2.5 % Baso % (Auto) 1.1 % Immature Gran # (Auto) 0.05 H (0.00-0.02) K/uL Neut # (Auto) 6.37 (1.4-6.5) K/uL Lymph # (Auto) 2.48 (1.2-3.4) K/uL [place] # (Auto) 0.80 H (0.11-0.59) K/uL Eos # (Auto) 0.25 (0-0.5) K/uL Baso # (Auto) 0.11 (0-0.2) K/uL Absolute Nucleated RBC 0.03 H (0-0) K/uL Nucleated RBC % (auto) 0.3 % Hypochromasia Microcytosis Present Target Cells 2+ Acanthocytes (Spur) 1+ PT 23.3 H (9.0-12.0) Seconds INR 2.3 H (0.9-1.1) APTT (21.0-31.0) Seconds PTT Ratio Sodium 140 (136-145) mmol/L Potassium 2.9 L (3.5-5.1) mmol/L Chloride 99 (98-107) mmol/L Carbon Dioxide 32 (21-32) mmol/L Anion Gap 9.0 (3-11) BUN 51 H (7-18) mg/dl Creatinine 1.10 (0.6-1.2) mg/dl Est Cr Clr Drug Dosing 56.3 ml/min Est GFR ( Amer) 57.7 Est GFR (Non-Af Amer) 49.8 BUN/Creatinine Ratio 46.5 H (10-20) Glucose 127 H (70-99) mg/dl POC Glucose (70-99) mg/dl Calcium 9.2 (8.5-10.1) mg/dl Phosphorus (2.5-4.9) mg/dl Magnesium 2.4 (1.8-2.4) mg/dl Iron (35-150) mcg/dl TIBC (250-450) mcg/dl Transferrin (200-360) mg/dl Transferrin % Sat (15-50) % Ferritin (8-388) ng/ml Total Bilirubin 0.6 (0.2-1) mg/dl AST 24 (15-37) U/L ALT 23 (12-78) U/L Alkaline Phosphatase 116 (45-117) U/L Troponin I (0-0.045) ng/ml Total Protein 6.8 (6.4-8.2) gm/dl Albumin 3.2 L (3.4-5.0) gm/dl Globulin 3.6 (2.5-4.0) gm/dl Albumin/Globulin Ratio 0.9 (0.9-2) Urine Color Urine Appearance (Clear) Urine pH (4.5-7.5) Ur Specific [place] (1.000-1.030) Urine Protein (Negative) Urine Glucose (UA) (Negative) Urine Ketones (Negative) Urine Blood (Negative) Urine Nitrite (Negative) Urine Bilirubin (Negative) Urine Urobilinogen (Negative) Ur Leukocyte Esterase (Negative) Urine WBC (Auto) (0-5) /hpf Urine RBC (Auto) (0-4) /hpf U Hyaline Cast (Auto) (0-5) /lpf U Epithel Cells (Auto) (0-5) /lpf Urine Bacteria (Auto) (Negative) Blood Type Antibody Screen Antibody Identification Antibody ID Comment Crossmatch 04/11/20 04/11/20 04/10/20 Range/Units 05:34 01:25 20:36 WBC 12.33 H (4.8-10.8) K/uL RBC 3.62 L (4.2-5.4) M/uL Hgb 7.3 L (12.0-16.0) g/dL Hct 25.0 L (37-47) % MCV 69.1 L (80-100) fL MCH 20.2 L (25-34) pg MCHC 29.2 L (32-36) g/dL RDW Std Deviation 45.4 (36.4-46.3) fL RDW Coeff of Donald 17.9 H (11.5-14.5) % Plt Count 523 H (130-400) K/uL MPV 8.8 (7.4-10.4) fL Immature Gran % (Auto) 0.6 % Neut % (Auto) 58.4 % Lymph % (Auto) 25.4 % [place] % (Auto) 10.9 % Eos % (Auto) 3.5 % Baso % (Auto) 1.2 % Immature Gran # (Auto) 0.07 H (0.00-0.02) K/uL Neut # (Auto) 7.21 H (1.4-6.5) K/uL Lymph # (Auto) 3.13 (1.2-3.4) K/uL [place] # (Auto) 1.34 H (0.11-0.59) K/uL Eos # (Auto) 0.43 (0-0.5) K/uL Baso # (Auto) 0.15 (0-0.2) K/uL Absolute Nucleated RBC (0-0) K/uL Nucleated RBC % (auto) % Hypochromasia Present Microcytosis Present Target Cells 1+ Acanthocytes (Spur) PT (9.0-12.0) Seconds INR (0.9-1.1) APTT (21.0-31.0) Seconds PTT Ratio Sodium (136-145) mmol/L Potassium (3.5-5.1) mmol/L Chloride (98-107) mmol/L Carbon Dioxide (21-32) mmol/L Anion Gap (3-11) BUN (7-18) mg/dl Creatinine (0.6-1.2) mg/dl Est Cr Clr Drug Dosing ml/min Est GFR ( Amer) Est GFR (Non-Af Amer) BUN/Creatinine Ratio (10-20) Glucose (70-99) mg/dl POC Glucose 153 H (70-99) mg/dl Calcium (8.5-10.1) mg/dl Phosphorus (2.5-4.9) mg/dl Magnesium (1.8-2.4) mg/dl Iron (35-150) mcg/dl TIBC (250-450) mcg/dl Transferrin (200-360) mg/dl Transferrin % Sat (15-50) % Ferritin (8-388) ng/ml Total Bilirubin (0.2-1) mg/dl AST (15-37) U/L ALT (12-78) U/L Alkaline Phosphatase (45-117) U/L Troponin I < 0.015 (0-0.045) ng/ml Total Protein (6.4-8.2) gm/dl Albumin (3.4-5.0) gm/dl Globulin (2.5-4.0) gm/dl Albumin/Globulin Ratio (0.9-2) Urine Color Urine Appearance (Clear) Urine pH (4.5-7.5) Ur Specific [place] (1.000-1.030) Urine Protein (Negative) Urine Glucose (UA) (Negative) Urine Ketones (Negative) Urine Blood (Negative) Urine Nitrite (Negative) Urine Bilirubin (Negative) Urine Urobilinogen (Negative) Ur Leukocyte Esterase (Negative) Urine WBC (Auto) (0-5) /hpf Urine RBC (Auto) (0-4) /hpf U Hyaline Cast (Auto) (0-5) /lpf U Epithel Cells (Auto) (0-5) /lpf Urine Bacteria (Auto) (Negative) Blood Type Antibody Screen Antibody Identification Antibody ID Comment Crossmatch 04/10/20 04/10/20 04/10/20 Range/Units 20:36 13:45 13:07 WBC (4.8-10.8) K/uL RBC (4.2-5.4) M/uL Hgb (12.0-16.0) g/dL Hct (37-47) % MCV (80-100) fL MCH (25-34) pg MCHC (32-36) g/dL RDW Std Deviation (36.4-46.3) fL RDW Coeff of Donald (11.5-14.5) % Plt Count (130-400) K/uL MPV (7.4-10.4) fL Immature Gran % (Auto) % Neut % (Auto) % Lymph % (Auto) % [place] % (Auto) % Eos % (Auto) % Baso % (Auto) % Immature Gran # (Auto) (0.00-0.02) K/uL Neut # (Auto) (1.4-6.5) K/uL Lymph # (Auto) (1.2-3.4) K/uL [place] # (Auto) (0.11-0.59) K/uL Eos # (Auto) (0-0.5) K/uL Baso # (Auto) (0-0.2) K/uL Absolute Nucleated RBC (0-0) K/uL Nucleated RBC % (auto) % Hypochromasia Microcytosis Target Cells Acanthocytes (Spur) PT (9.0-12.0) Seconds INR (0.9-1.1) APTT (21.0-31.0) Seconds PTT Ratio Sodium (136-145) mmol/L Potassium (3.5-5.1) mmol/L Chloride (98-107) mmol/L Carbon Dioxide (21-32) mmol/L Anion Gap (3-11) BUN (7-18) mg/dl Creatinine (0.6-1.2) mg/dl Est Cr Clr Drug Dosing ml/min Est GFR ( Amer) Est GFR (Non-Af Amer) BUN/Creatinine Ratio (10-20) Glucose (70-99) mg/dl POC Glucose (70-99) mg/dl Calcium (8.5-10.1) mg/dl Phosphorus (2.5-4.9) mg/dl Magnesium (1.8-2.4) mg/dl Iron 15 L (35-150) mcg/dl TIBC 509 H (250-450) mcg/dl Transferrin 404 H (200-360) mg/dl Transferrin % Sat 3 L (15-50) % Ferritin 55.3 (8-388) ng/ml Total Bilirubin (0.2-1) mg/dl AST (15-37) U/L ALT (12-78) U/L Alkaline Phosphatase (45-117) U/L Troponin I < 0.015 (0-0.045) ng/ml Total Protein (6.4-8.2) gm/dl Albumin (3.4-5.0) gm/dl Globulin (2.5-4.0) gm/dl Albumin/Globulin Ratio (0.9-2) Urine Color Yellow Urine Appearance Clear (Clear) Urine pH 6.5 (4.5-7.5) Ur Specific [place] 1.012 (1.000-1.030) Urine Protein Negative (Negative) Urine Glucose (UA) Negative (Negative) Urine Ketones Negative (Negative) Urine Blood Negative (Negative) Urine Nitrite Negative (Negative) Urine Bilirubin Negative (Negative) Urine Urobilinogen Negative (Negative) Ur Leukocyte Esterase Trace H (Negative) Urine WBC (Auto) 1-5 (0-5) /hpf Urine RBC (Auto) 0-4 (0-4) /hpf U Hyaline Cast (Auto) 1-5 (0-5) /lpf U Epithel Cells (Auto) 10-20 H (0-5) /lpf Urine Bacteria (Auto) Negative (Negative) Blood Type Antibody Screen Antibody Identification Antibody ID Comment Crossmatch 04/10/20 04/10/20 04/10/20 Range/Units 13:07 13:07 13:07 WBC 12.58 H (4.8-10.8) K/uL RBC 3.83 L (4.2-5.4) M/uL Hgb 7.8 L (12.0-16.0) g/dL Hct 26.7 L (37-47) % MCV 69.7 L (80-100) fL MCH 20.4 L (25-34) pg MCHC 29.2 L (32-36) g/dL RDW Std Deviation 45.6 (36.4-46.3) fL RDW Coeff of Donald 18.1 H (11.5-14.5) % Plt Count 554 H (130-400) K/uL MPV 8.8 (7.4-10.4) fL Immature Gran % (Auto) 0.6 % Neut % (Auto) 57.6 % Lymph % (Auto) 28.2 % [place] % (Auto) 11.0 % Eos % (Auto) 1.7 % Baso % (Auto) 0.9 % Immature Gran # (Auto) 0.08 H (0.00-0.02) K/uL Neut # (Auto) 7.24 H (1.4-6.5) K/uL Lymph # (Auto) 3.55 H (1.2-3.4) K/uL [place] # (Auto) 1.39 H (0.11-0.59) K/uL Eos # (Auto) 0.21 (0-0.5) K/uL Baso # (Auto) 0.11 (0-0.2) K/uL Absolute Nucleated RBC (0-0) K/uL Nucleated RBC % (auto) % Hypochromasia Present Microcytosis Present Target Cells 1+ Acanthocytes (Spur) PT 28.1 H (9.0-12.0) Seconds INR 2.8 H (0.9-1.1) APTT 35.6 H (21.0-31.0) Seconds PTT Ratio 1.3 Sodium 135 L (136-145) mmol/L Potassium 3.0 L D (3.5-5.1) mmol/L Chloride 93 L (98-107) mmol/L Carbon Dioxide 30 (21-32) mmol/L Anion Gap 11.0 (3-11) BUN 60 H (7-18) mg/dl Creatinine 1.27 H (0.6-1.2) mg/dl Est Cr Clr Drug Dosing 49.5 ml/min Est GFR ( Amer) 48.5 Est GFR (Non-Af Amer) 41.8 BUN/Creatinine Ratio 47.3 H (10-20) Glucose 127 H (70-99) mg/dl POC Glucose (70-99) mg/dl Calcium 9.5 (8.5-10.1) mg/dl Phosphorus 4.1 (2.5-4.9) mg/dl Magnesium 2.6 H (1.8-2.4) mg/dl Iron (35-150) mcg/dl TIBC (250-450) mcg/dl Transferrin (200-360) mg/dl Transferrin % Sat (15-50) % Ferritin (8-388) ng/ml Total Bilirubin 0.5 (0.2-1) mg/dl AST 31 (15-37) U/L ALT 30 (12-78) U/L Alkaline Phosphatase 131 H (45-117) U/L Troponin I < 0.015 (0-0.045) ng/ml Total Protein 8.2 (6.4-8.2) gm/dl Albumin 3.7 (3.4-5.0) gm/dl Globulin 4.5 H (2.5-4.0) gm/dl Albumin/Globulin Ratio 0.8 L (0.9-2) Urine Color Urine Appearance (Clear) Urine pH (4.5-7.5) Ur Specific [place] (1.000-1.030) Urine Protein (Negative) Urine Glucose (UA) (Negative) Urine Ketones (Negative) Urine Blood (Negative) Urine Nitrite (Negative) Urine Bilirubin (Negative) Urine Urobilinogen (Negative) Ur Leukocyte Esterase (Negative) Urine WBC (Auto) (0-5) /hpf Urine RBC (Auto) (0-4) /hpf U Hyaline Cast (Auto) (0-5) /lpf U Epithel Cells (Auto) (0-5) /lpf Urine Bacteria (Auto) (Negative) Blood Type Antibody Screen Antibody Identification Antibody ID Comment Crossmatch 04/10/20 Range/Units 13:07 WBC (4.8-10.8) K/uL RBC (4.2-5.4) M/uL Hgb (12.0-16.0) g/dL Hct (37-47) % MCV (80-100) fL MCH (25-34) pg MCHC (32-36) g/dL RDW Std Deviation (36.4-46.3) fL RDW Coeff of Donald (11.5-14.5) % Plt Count (130-400) K/uL MPV (7.4-10.4) fL Immature Gran % (Auto) % Neut % (Auto) % Lymph % (Auto) % [place] % (Auto) % Eos % (Auto) % Baso % (Auto) % Immature Gran # (Auto) (0.00-0.02) K/uL Neut # (Auto) (1.4-6.5) K/uL Lymph # (Auto) (1.2-3.4) K/uL [place] # (Auto) (0.11-0.59) K/uL Eos # (Auto) (0-0.5) K/uL Baso # (Auto) (0-0.2) K/uL Absolute Nucleated RBC (0-0) K/uL Nucleated RBC % (auto) % Hypochromasia Microcytosis Target Cells Acanthocytes (Spur) PT (9.0-12.0) Seconds INR (0.9-1.1) APTT (21.0-31.0) Seconds PTT Ratio Sodium (136-145) mmol/L Potassium (3.5-5.1) mmol/L Chloride (98-107) mmol/L Carbon Dioxide (21-32) mmol/L Anion Gap (3-11) BUN (7-18) mg/dl Creatinine (0.6-1.2) mg/dl Est Cr Clr Drug Dosing ml/min Est GFR ( Amer) Est GFR (Non-Af Amer) BUN/Creatinine Ratio (10-20) Glucose (70-99) mg/dl POC Glucose (70-99) mg/dl Calcium (8.5-10.1) mg/dl Phosphorus (2.5-4.9) mg/dl Magnesium (1.8-2.4) mg/dl Iron (35-150) mcg/dl TIBC (250-450) mcg/dl Transferrin (200-360) mg/dl Transferrin % Sat (15-50) % Ferritin (8-388) ng/ml Total Bilirubin (0.2-1) mg/dl AST (15-37) U/L ALT (12-78) U/L Alkaline Phosphatase (45-117) U/L Troponin I (0-0.045) ng/ml Total Protein (6.4-8.2) gm/dl Albumin (3.4-5.0) gm/dl Globulin (2.5-4.0) gm/dl Albumin/Globulin Ratio (0.9-2) Urine Color Urine Appearance (Clear) Urine pH (4.5-7.5) Ur Specific [place] (1.000-1.030) Urine Protein (Negative) Urine Glucose (UA) (Negative) Urine Ketones (Negative) Urine Blood (Negative) Urine Nitrite (Negative) Urine Bilirubin (Negative) Urine Urobilinogen (Negative) Ur Leukocyte Esterase (Negative) Urine WBC (Auto) (0-5) /hpf Urine RBC (Auto) (0-4) /hpf U Hyaline Cast (Auto) (0-5) /lpf U Epithel Cells (Auto) (0-5) /lpf Urine Bacteria (Auto) (Negative) Blood Type O Positive Antibody Screen POSITIVE A Antibody Identification Anti-S Antibody ID Comment Crossmatch See Detail PG Care Time/CCT Total # of Minutes Spent Total Time Spent with Patient: Total time spent is greater than 50% in coordination of care (as documented) at patient's floor/unit and/or counseling patient: Coding Level of Care Code 70661 Subseq Hosp Care Lvl 3 Diagnoses Melena K92.1 Acute blood loss anemia D62 Anemia D64.9 Chronic diastolic (congestive) heart failure I50.32 Weakness R53.1 STACIE (acute kidney injury) N17.9 Permanent atrial fibrillation I48.21 S/P mitral valve replacement Z95.2 S/P aortic valve replacement Z95.2 Hypertension I10 Hypertension type: essential hypertension custodial (current) use 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 Z79.01 H/O gastric bypass Z98.84 H/O splenectomy Z90.81 GERD (gastroesophageal reflux disease) K21.9 Hypokalemia E87.6 DVT prophylaxis Z29.9 (1) Hypertension Hypertension type: essential hypertension Qualified Code(s): I10 - Essential (primary) hypertension
--- NOTE | 2020-04-11 14:12 | Gastrointestinal Consultation ---
Date of Consultation April 11, 2020 Assessment & Plan (1) Acute blood loss anemia: (2) Melena: Continue Protonix gtt at 8 mg per hour Transfuse PRBC PRN to maintain H/H around 8/24 Continue to hold Coumadin for now EGD Now for further evaluation Further recommendations to follow History of Present Illness Reason for Consultation: GI bleed, Anemia, History of Ulcers Attending Physician: Tunde Arora History of Present Illness Eden Wagner is a 74 yo CF with an extensive PMHx, who presented to the ER yesterday with weakness, fatigue and noted anemia on bloodwork. She also noted dark tarry stools for the past 3-4 days. 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 She was subsequently admitted and placed on a protonix gtt. She was ordered 2 u PRBC, but this has been delayed due to +Ab, and blood will need to be transferred from [place]. Her last dose of coumadin was yesterday, and her INR was checked today and noted to be 2.3 this morning. At the time I saw the patient, she denies any specific abdominal pain. She does admit to continued black stools, but states her weakness has improved. She denies any hematemesis, and states that she has not had any BRBPR. She has been NPO since her arrival. She has no further complaints. Allergies Allergy/AdvReac Type Severity Reaction Status Date / Time iron dextran complex Allergy Severe RASH Verified 04/10/20 12:55 choline salicylate Allergy Intermediate TRILISATE-r Verified 04/10/20 12:55 nay magnesium salicylate Allergy Intermediate TRILISATE-r Verified 04/10/20 12:55 nay Trilisate Allergy Intermediate TRILISATE-r Verified 11/05/16 17:37 nay mometasone furoate Allergy Unknown Pt has no Verified 04/10/20 12:55 recollection of this Ferric Oxide Allergy Severe VENOFER Uncoded 04/10/20 12:55 INFUSION-RASH,WEAKNESS,BLEEDING-HOSPITALIZED Home Medications Home Medications Medication Instructions Recorded Confirmed Type metoprolol succinate 200 mg 100 mg PO BID tab 05/31/19 04/10/20 History tablet,extended release 24 hr cholecalciferol (vitamin D3) 2,000 units PO QAM 07/05/19 04/10/20 History cyanocobalamin (vitamin B-12) 1,000 mcg IM MONTHLY 07/05/19 04/10/20 History folic acid 1 mg PO QAM 07/05/19 04/10/20 History multivitamin with iron 1 tab PO QAM 07/05/19 04/10/20 History atorvastatin 10 mg tablet 10 mg PO QAM #90 tab 08/27/19 04/10/20 History bumetanide 1 mg tablet 4 mg PO QAM tab 10/03/19 04/10/20 History calcium carbonate 500 mg calcium 500 mg PO DAILY 02/05/20 04/10/20 History (1,250 mg) tablet levalbuterol tartrate 45 2 puffs INH Q6H PRN #15 gm 02/13/20 04/10/20 Rx mcg/actuation aerosol inhaler warfarin 2.5 - 5 mg PO UD 02/15/20 04/10/20 History potassium chloride 20 mEq/15 mL 20 meq PO DAILY #3800 ml 03/21/20 04/10/20 Rx oral liquid Patient History Medical History Acquired claw toe of left foot (Inactive) Acquired claw toe of right foot (Inactive) Anemia ASCVD (arteriosclerotic cardiovascular disease) (Chronic) Atrial fibrillation Callus (Resolved) CHF (congestive heart failure) (Chronic) Controlled type 2 diabetes mellitus with diabetic peripheral angiopathy without gangrene Diabetes mellitus with diabetic polyneuropathy (Chronic) Diabetic neuropathy (Chronic) DM II (diabetes mellitus, type II), controlled (Chronic) HTN (hypertension) (Chronic) Hyperkalemia Hyperlipidemia (Chronic) Hypertension 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 Neuropathic ulcer of toe of left foot (Acute) Neuropathic ulcer of toe of right foot (Resolved) Obesity Permanent atrial fibrillation Surgical aftercare, skin or subcutaneous tissue (Resolved) Surgical History H/O hernia repair H/O splenectomy History of knee replacement History of total abdominal hysterectomy Hx of appendectomy Hx of cholecystectomy Hx of tonsillectomy S/P aortic valve replacement (2011) S/P gastric bypass (Resolved) S/P mitral valve replacement (2012) S/P pericardial window creation (2012) Status post panniculectomy Family History Mother Congestive heart failure Diabetes Hypertension Cardiac disorder Brother Diabetes Polycythemia Pharyngeal neoplasm Pulmonary embolism Father Lung cancer Acute myocardial infarction Hypertension Cardiac disorder Myocardial infarction Denies family history of Ovarian cancer Crohn's disease Colorectal cancer Social History Preferred Language: [place] Communication Ability: Effective Visual Impairment: No Limitations Hearing Ability: Normal Bench Lathe Operator Required: No Beliefs That Will Affect Care: None marital status: Current Living Situation: Spouse current occupational status: retired Other Information That Helps Us Care for You: No Feels Safe at Home: Yes Safety Concerns: Feels Safe At This Time Smoking Status: Never smoker Hx Alcohol Use: Yes Alcohol type: hard liquor Alcohol type Comment: occassional mixed drink and beer Alcohol Intake Frequency: Holidays/Special Occasions Hx Substance Use: No Childhood Exposure to Second-Hand Smoke: No Diet Comment: pt watches diet intake s/p gastric bypass surgery caffeine: Yes during the past year weight has: decreased > 10 lbs Dental Care, Regularly: Yes Physical Activity Frequency: 3-4 Times per Week Seatbelt Use: always Sunscreen Use: Yes Review of Systems Review of Systems: All systems reviewed & are unremarkable except as noted in HPI & below Physical Exam Constitutional: WD/WN, vitals as above Eyes: PERRL, conjunctivae normal, anicteric sclerae ENMT: external ear and nose normal, oropharynx normal Neck: trachea midline, no thyromegaly Respiratory: normal respiratory effort, lungs clear to auscultation Cardiovascular: RRR, no murmur, no edema Gastrointestinal (Abdomen): normal bowel sounds, soft, nontender, no hepatosplenomegaly Skin: + pallor Psychiatric: A+Ox3, euthymic affect Results & Data ([facility]) Vital Signs (Past 12 Hours) Vital Signs Temp Pulse Pulse Resp BP Pulse Ox 04/11/20 11:52 36.8 C 79 18 103/64 99 04/11/20 08:06 109/69 04/11/20 07:41 36.8 C 74 18 97/60 L 96 04/11/20 07:11 65 04/11/20 04:54 36.6 C 65 16 96/56 L 95 PG Care Time/CCT Total # of Minutes Spent Total Time Spent with Patient: Total time spent is greater than 50% in coordination of care (as documented) at patient's floor/unit and/or counseling patient: Coding Level of Care Code 10757 Inpt Consult Level 4 Diagnoses Acute blood loss anemia D62 Melena K92.1
--- NOTE | 2020-04-11 14:52 | Anesthesiology Consultation ---
Date of Service April 11, 2020 Assessment & Plan (1) Encounter for pre-operative examination: Chart Review Chart Review: Acceptable Risk for Surgery (necessary procedure) and Patient NOT seen in Pre Admission Testing Consults Requested none History Surgery Operation Date: 04/11/20 09:00 Proposed Procedures p Esophagogastroduodenoscopy Dr Brizuela - Brayan Oseguera Case, DO Height/Weight Height: 5 ft 9 in Weight: 96.388 kg Allergies Allergy/AdvReac Type Severity Reaction Status Date / Time iron dextran complex Allergy Severe RASH Verified 04/10/20 12:55 choline salicylate Allergy Intermediate TRILISATE-r Verified 04/10/20 12:55 nay magnesium salicylate Allergy Intermediate TRILISATE-r Verified 04/10/20 12:55 nay Trilisate Allergy Intermediate TRILISATE-r Verified 11/05/16 17:37 nay mometasone furoate Allergy Unknown Pt has no Verified 04/10/20 12:55 recollection of this Ferric Oxide Allergy Severe VENOFER Uncoded 04/10/20 12:55 INFUSION-RASH,WEAKNESS,BLEEDING-HOSPITALIZED Medications Home Medications Medication Instructions Recorded Confirmed Last Taken metoprolol succinate 200 mg 100 mg PO BID tab 05/31/19 04/10/20 07/05/19 tablet,extended release 24 hr PM DOSE 100 MG cholecalciferol (vitamin D3) 2,000 units PO QAM 07/05/19 04/10/20 07/05/19 cyanocobalamin (vitamin B-12) 1,000 mcg IM MONTHLY 07/05/19 04/10/20 Unknown folic acid 1 mg PO QAM 07/05/19 04/10/20 07/05/19 multivitamin with iron 1 tab PO QAM 07/05/19 04/10/20 07/05/19 atorvastatin 10 mg tablet 10 mg PO QAM #90 tab 08/27/19 04/10/20 Unknown bumetanide 1 mg tablet 4 mg PO QAM tab 10/03/19 04/10/20 Unknown calcium carbonate 500 mg calcium 500 mg PO DAILY 02/05/20 04/10/20 Unknown (1,250 mg) tablet levalbuterol tartrate 45 2 puffs INH Q6H PRN #15 gm 02/13/20 04/10/20 Unknown mcg/actuation aerosol inhaler warfarin 2.5 - 5 mg PO UD 02/15/20 04/10/20 Unknown potassium chloride 20 mEq/15 mL 20 meq PO DAILY #3800 ml 03/21/20 04/10/20 Unknown oral liquid Active Medications Generic Name Dose Route Start Last Admin Trade Name Herberthq PRN Reason Stop Dose Admin Acetaminophen 650 mg 04/10/20 19:35 04/11/20 08:08 Tylenol PO 05/10/20 19:34 650 mg Q4H PRN Administration Pain or Fever Pantoprazole Sodium 40 mg/ 100 mls @ 20 mls/hr 04/10/20 13:59 04/11/20 13:49 Dextrose IV 05/10/20 13:58 8 mg/hr Q5H MARCI 20 mls/hr Administration 8 MG/HR Sodium Chloride 1,000 mls @ 80 mls/hr 04/10/20 19:35 04/11/20 08:08 Nss 1000ml IV 05/10/20 19:34 80 mls/hr .[id number] MARCI Administration Metoprolol Succinate 100 mg 04/10/20 21:00 04/11/20 08:06 Toprol Xl PO 05/10/20 20:59 100 mg BID MARCI Administration Past Medical History Medical History Acquired claw toe of left foot (Inactive) Acquired claw toe of right foot (Inactive) Anemia ASCVD (arteriosclerotic cardiovascular disease) (Chronic) Atrial fibrillation Callus (Resolved) CHF (congestive heart failure) (Chronic) Controlled type 2 diabetes mellitus with diabetic peripheral angiopathy without gangrene Diabetes mellitus with diabetic polyneuropathy (Chronic) Diabetic neuropathy (Chronic) DM II (diabetes mellitus, type II), controlled (Chronic) HTN (hypertension) (Chronic) Hyperkalemia Hyperlipidemia (Chronic) Hypertension 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 Neuropathic ulcer of toe of left foot (Acute) Neuropathic ulcer of toe of right foot (Resolved) Obesity Permanent atrial fibrillation Surgical aftercare, skin or subcutaneous tissue (Resolved) Past Family History Family History Mother Congestive heart failure Diabetes Hypertension Cardiac disorder Brother Diabetes Polycythemia Pharyngeal neoplasm Pulmonary embolism Father Lung cancer Acute myocardial infarction Hypertension Cardiac disorder Myocardial infarction Denies family history of Ovarian cancer Crohn's disease Colorectal cancer Past Surgical History Surgical History H/O hernia repair H/O splenectomy History of knee replacement History of total abdominal hysterectomy Hx of appendectomy Hx of cholecystectomy Hx of tonsillectomy S/P aortic valve replacement (2011) S/P gastric bypass (Resolved) S/P mitral valve replacement (2011) S/P pericardial window creation (2011) Status post panniculectomy Social History Smoking Status: Never smoker Hx Alcohol Use: Yes Alcohol type: hard liquor alcohol intake frequency: a few times a month Hx Substance Use: No substance use type: does not use Physical Exam Vital Signs Last Vital Signs Temp 37.2 C 04/11/20 14:35 Pulse 81 04/11/20 14:35 Resp 18 04/11/20 14:35 BP 109/69 04/11/20 14:35 Pulse Ox 97 04/11/20 14:35 Testing Laboratory Results 04/11/20 08:04 04/11/20 08:04 PT 23.3 Seconds (9.0-12.0) H 04/11/20 08:04 INR 2.3 (0.9-1.1) H 04/11/20 08:04 APTT 35.6 Seconds (21.0-31.0) H 04/10/20 13:07 Urine Color Yellow 04/10/20 13:45 Urine Appearance Clear (Clear) 04/10/20 13:45 Urine pH 6.5 (4.5-7.5) 04/10/20 13:45 Ur Specific [place] 1.012 (1.000-1.030) 04/10/20 13:45 Urine Protein Negative (Negative) 04/10/20 13:45 Urine Glucose (UA) Negative (Negative) 04/10/20 13:45 Urine Ketones Negative (Negative) 04/10/20 13:45 Urine Nitrite Negative (Negative) 04/10/20 13:45 Ur Leukocyte Esterase Trace (Negative) H 04/10/20 13:45 Urine WBC (Auto) 1-5 /hpf (0-5) 04/10/20 13:45 Urine RBC (Auto) 0-4 /hpf (0-4) 04/10/20 13:45 U Hyaline Cast (Auto) 1-5 /lpf (0-5) 04/10/20 13:45 U Epithel Cells (Auto) 10-20 /lpf (0-5) H 04/10/20 13:45 Urine Bacteria (Auto) Negative (Negative) 04/10/20 13:45 Blood Type O Positive 04/10/20 13:07 Antibody Screen POSITIVE A 04/10/20 13:07 04/11/20 05:34 POC Glucose 153 H Electrocardiogram Date: 04/11/20 Findings: + AFIB @ (69) anterior infarct, inferior infarct Chest X-Ray Date: 04/10/20 TWO VIEW CHEST CLINICAL HISTORY: Generalized weakness. Chills. Dyspnea on exertion. FINDINGS: PA and lateral chest radiographs are compared to study dated 02/15/2020 and correlated with chest CT dated 05/05/2019. The patient is status post midline sternotomy and cardiac valve surgeries. The heart is enlarged noting atherosclerotic calcification of the thoracic aorta. The pulmonary vasculature is noncongested. The mitral annulus is densely calcified. Chronic interstitial thickening is similar to previous. There is bibasilar scarring/atelectasis. No airspace consolidation or large pleural effusion is identified. There is no pneumothorax. The skeletal structures are osteopenic. The bony thorax is grossly intact. Degenerative change and hyperkyphosis is noted in the thoracic spine. Surgical clips are noted in the upper abdomen. IMPRESSION: Cardiomegaly and chronic parenchymal changes as above with no active disease in the chest. ACT 112: Negative or not required by law. Electronically signed by: Albert Pettit M.D. 04/10/2020 7:44 PM Dictated: 04/10/201941 Transcribed: 04/10/201941
[2020-04-11 15:29] LABS: BUN Creatinine Ratio 41.4 (10-20); Calcium 9.2 mg/dl (8.5-10.1); Creatinine Clr Calc Pharmacy 57.9 ml/min; Est GFR (African American) 59.6; Est GFR (Non-African American) 51.5; Potassium 3.2 mmol/L (3.5-5.1)
[2020-04-11] MEDS ORDERED: LIDOCAINE HCL 2% 2 ML VIAL/AMP(20MG/ML) INFIL ONE (15:33)
[2020-04-11] MEDS ORDERED: PROPOFOL IV EMULSION 10 MG/ML 20 ML VIAL IV ONE (15:33)
[2020-04-11] MEDS ORDERED: POTASSIUM CHLORIDE 20 MEQ TABCR PO ONE (16:06)
--- NOTE | 2020-04-11 16:09 | Electrocardiogram Report ---
Test Reason : Blood Pressure : / mmHG Vent. Rate : 069 BPM Atrial Rate : 000 BPM P-R Int : 000 ms QRS Dur : 088 ms QT Int : 448 ms P-R-T Axes : 000 -18 025 degrees QTc Int : 480 ms Atrial fibrillation Inferior infarct (cited on or before 11-APR-2020) Anterior infarct (cited on or before 11-APR-2020) Abnormal ECG When compared with ECG of 10-APR-2020 13:16, Nonspecific T wave abnormality has replaced inverted T waves in Inferior leads Confirmed by Ramesh Whitney ([id number]) on 04/11/2020 4:08:52 PM Referred By: REFERRED SELF Confirmed By:Francisco Whitney
--- NOTE | 2020-04-11 16:20 | GI REPORT ---
Patient Name: Eden Wagner Procedure Date: 04/11/2020 3:45 PM Date of : 1945 Admit Type: Inpatient Age: 74 Gender: Female Attending MD: Brayan Brizuela DO Procedure: Upper GI endoscopy Providers: Brayan Brizuela DO Referring MD: Tunde Arora Indications: Dysphagia Medicines: Monitored Anesthesia Care Complications: No immediate complications. Estimated Blood Loss: Estimated blood loss: none. Procedure: Pre-Anesthesia Assessment: - Prior to the procedure, a History and Physical was performed, and patient medications and allergies were reviewed. The patient's tolerance of previous anesthesia was also reviewed. The risks and benefits of the procedure and the sedation options and risks were discussed with the patient. All questions were answered, and informed consent was obtained. Prior Anticoagulants: The patient has taken Coumadin (warfarin), last dose was 2 days prior to procedure. ASA Grade Assessment: IV - A patient with severe systemic disease that is a constant threat to life. After reviewing the risks and benefits, the patient was deemed in satisfactory condition to undergo the procedure. After obtaining informed consent, the endoscope was passed under direct vision. Throughout the procedure, the patient's blood pressure, pulse, and oxygen saturations were monitored continuously. The Endoscope was introduced through the mouth, and advanced to the second part of duodenum. The upper GI endoscopy was accomplished without difficulty. The patient tolerated the procedure well. Findings: The examined esophagus was normal. Evidence of a Chris-en-Y gastrojejunostomy was found. The gastrojejunal anastomosis was characterized by ulceration without stigmata of bleeding. This was traversed. The examined jejunum was normal. There was no fresh or old blood noted in the entire examined upper GI tract Impression: - Normal esophagus. 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 - Normal examined jejunum. - No specimens collected. Recommendation: - [facility]. - Clear liquid diet. - Continue to hold Coumadin - Continue Pantoprazole but stop gtt and give Pantoprazole 40 mg IV BID - Perform a colonoscopy tomorrow. Brayan Brizuela DO 04/11/2020 4:20:14 PM This report has been signed electronically. Note Initiated On: 04/11/2020 3:45 PM Number of Addenda: 0 I attest to the content of the Intraoperative Record and orders documented therein, exceptions below {[id number]}
[2020-04-11] MEDS ORDERED: bisacodyL 5 MG TABEC PO ONE (16:22)
--- NOTE | 2020-04-11 16:32 | Anesthesiology Progress Note ---
Date of Service April 11, 2020 Anesthesia Post Procedure Vital Signs Vital Signs: Temp Pulse Pulse Resp BP BP BP 04/11/20 16:26 78 18 130/64 04/11/20 16:15 36.5 C 75 18 110/56 L 04/11/20 16:10 36.5 C 80 18 114/57 L 04/11/20 15:39 36.7 C 73 18 140/68 04/11/20 15:32 36.7 C 73 18 140/68 04/11/20 15:09 37.3 C 72 20 115/68 04/11/20 14:54 37.0 C 75 18 111/57 L 04/11/20 14:35 37.2 C 81 18 109/69 04/11/20 11:52 36.8 C 79 18 103/64 04/11/20 08:06 109/69 04/11/20 07:41 36.8 C 74 18 97/60 L 04/11/20 07:11 65 04/11/20 04:54 36.6 C 65 16 96/56 L 04/10/20 23:42 36.4 C L 82 16 106/63 04/10/20 19:35 36.5 C 78 16 156/78 H 04/10/20 18:30 71 20 137/73 04/10/20 18:07 81 20 145/78 H 04/10/20 17:00 84 24 155/69 H Pulse Ox 04/11/20 16:26 99 04/11/20 16:15 99 04/11/20 16:10 99 04/11/20 15:39 100 04/11/20 15:32 100 04/11/20 15:09 98 04/11/20 14:54 100 04/11/20 14:35 97 04/11/20 11:52 99 04/11/20 08:06 04/11/20 07:41 96 04/11/20 07:11 04/11/20 04:54 95 04/10/20 23:42 95 04/10/20 19:35 100 04/10/20 18:30 100 04/10/20 18:07 100 04/10/20 17:00 99 Pain Intensity Bilateral Head: Pain Intensity: 4 Transfer of Care Handoff Completed per policy Notes Mental Status: alert / awake / arousable Patient Amnestic to Procedure: Yes Nausea / Vomiting: adequately controlled Pain: adequately controlled Airway Patency, RR, SpO2: stable & adequate BP & HR: stable & adequate Hydration State: stable & adequate Anesthetic Complications: no major complications apparent
[2020-04-11] MEDS: SODIUM FERRIC GLUCONATE 125 MG in 0.9 % SODIUM CHLORIDE 100 ML IV SCH (19:07)
[2020-04-11 19:48] LABS: Hemoglobin 7.7 g/dL (12.0-16.0); Mean Corpuscular Hemoglobin 21.6 pg (25-34); Mean Corpuscular Hgb Conc 29.6 g/dL (32-36); Mean Corpuscular Volume 72.8 fL (80-100); Mean Platelet Volume 8.5 fL (7.4-10.4); Nucleated RBC # (auto) 0.04 K/uL (0-0); Nucleated RBC % (auto) 0.5 %; Platelet Count 462 K/uL (130-400); RDW Coefficient of Variation 19.5 % (11.5-14.5); RDW Standard Deviation 50.8 fL (36.4-46.3); Red Blood Count 3.57 M/uL (4.2-5.4); White Blood Count 7.29 K/uL (4.8-10.8)
[2020-04-11] MEDS ORDERED: POLYETHYLENE (MIRALAX) 17 GM PACK PO ONE (20:00)
[2020-04-11] MEDS: PANTOprazole 40 MG in SYRINGE 0 ML IV SCH (20:28)
[2020-04-12] MEDS ORDERED: POLYETHYLENE (MIRALAX) 17 GM PACK PO ONE (02:00)
[2020-04-12 06:05] LABS: Hematocrit (blood only) 24.5 % (37-47); Hemoglobin 7.4 g/dL (12.0-16.0); Mean Corpuscular Hemoglobin 21.9 pg (25-34); Mean Corpuscular Hgb Conc 30.2 g/dL (32-36); Mean Corpuscular Volume 72.5 fL (80-100); Mean Platelet Volume 8.6 fL (7.4-10.4); Nucleated RBC # (auto) 0.04 K/uL (0-0); Nucleated RBC % (auto) 0.4 %; Platelet Count 452 K/uL (130-400); RDW Coefficient of Variation 19.3 % (11.5-14.5); RDW Standard Deviation 50.7 fL (36.4-46.3); Red Blood Count 3.38 M/uL (4.2-5.4); White Blood Count 9.15 K/uL (4.8-10.8)
[2020-04-12 06:39] LABS: BUN Creatinine Ratio 36.9 (10-20); Calcium 8.3 mg/dl (8.5-10.1); Creatinine Clr Calc Pharmacy 67.3 ml/min; Est GFR (African American) 71.6; Est GFR (Non-African American) 61.8; Potassium 2.9 mmol/L (3.5-5.1)
[2020-04-12] MEDS ORDERED: POTASSIUM CHLORIDE 20 MEQ TABCR PO STA (07:25)
[2020-04-12] MEDS ORDERED: Nursing to Pharmacy Communication ONE (07:27)
[2020-04-12] MEDS: METOPROLOL SUCC 50MG EXT REL TAB PO SCH ×2 (07:48→21:45)
[2020-04-12] MEDS: FOLIC ACID 1 MG TAB PO SCH (07:48)
[2020-04-12] MEDS: ATORVASTATIN 10 MG TAB PO SCH (07:48)
[2020-04-12 08:20] LABS: Prothrombin Time 20.3 Seconds (9.0-12.0)
[2020-04-12] MEDS: PANTOprazole 40 MG in SYRINGE 0 ML IV SCH ×2 (08:33→21:45)
--- NOTE | 2020-04-12 09:26 | Anesthesiology Consultation ---
Date of Service April 12, 2020 Assessment & Plan (1) Encounter for pre-operative examination: Chart Review Chart Review: Acceptable Risk for Surgery History Surgery Operation Date: 04/11/20 09:00 Proposed Procedures p Esophagogastroduodenoscopy Dr Gelacio Oseguera Case, DO Operation Date: 04/12/20 08:30 Proposed Procedures p Colonoscopy Dr. Gelacio Oseguera Case, DO Height/Weight Height: 5 ft 9 in Weight: 98.1 kg Allergies Allergy/AdvReac Type Severity Reaction Status Date / Time iron dextran complex Allergy Severe RASH Verified 04/10/20 12:55 choline salicylate Allergy Intermediate TRILISATE-r Verified 04/10/20 12:55 nay magnesium salicylate Allergy Intermediate TRILISATE-r Verified 04/10/20 12:55 nay Trilisate Allergy Intermediate TRILISATE-r Verified 11/05/16 17:37 nay mometasone furoate Allergy Unknown Pt has no Verified 04/10/20 12:55 recollection of this Ferric Oxide Allergy Severe VENOFER Uncoded 04/10/20 12:55 INFUSION-RASH,WEAKNESS,BLEEDING-HOSPITALIZED Medications Home Medications Medication Instructions Recorded Confirmed Last Taken metoprolol succinate 200 mg 100 mg PO BID tab 05/31/19 04/10/20 07/05/19 tablet,extended release 24 hr PM DOSE 100 MG cholecalciferol (vitamin D3) 2,000 units PO QAM 07/05/19 04/10/20 07/05/19 cyanocobalamin (vitamin B-12) 1,000 mcg IM MONTHLY 07/05/19 04/10/20 Unknown folic acid 1 mg PO QAM 07/05/19 04/10/20 07/05/19 multivitamin with iron 1 tab PO QAM 07/05/19 04/10/20 07/05/19 atorvastatin 10 mg tablet 10 mg PO QAM #90 tab 08/27/19 04/10/20 Unknown bumetanide 1 mg tablet 4 mg PO QAM tab 10/03/19 04/10/20 Unknown calcium carbonate 500 mg calcium 500 mg PO DAILY 02/05/20 04/10/20 Unknown (1,250 mg) tablet levalbuterol tartrate 45 2 puffs INH Q6H PRN #15 gm 02/13/20 04/10/20 Unknown mcg/actuation aerosol inhaler warfarin 2.5 - 5 mg PO UD 02/15/20 04/10/20 Unknown potassium chloride 20 mEq/15 mL 20 meq PO DAILY #3800 ml 03/21/20 04/10/20 Unknown oral liquid Active Medications Generic Name Dose Route Start Last Admin Trade Name Freq PRN Reason Stop Dose Admin Acetaminophen 650 mg 04/10/20 19:35 04/11/20 08:08 Tylenol PO 05/10/20 19:34 650 mg Q4H PRN Administration Pain or Fever Atorvastatin Calcium 10 mg 04/12/20 09:00 04/12/20 07:48 Lipitor PO 05/12/20 08:59 10 mg QAM MARCI Administration Folic Acid 1 mg 04/12/20 09:00 04/12/20 07:48 Folvite PO 05/12/20 08:59 1 mg QAM MARCI Administration Sodium Chloride 1,000 mls @ 30 mls/hr 04/10/20 19:35 04/11/20 22:05 Nss 1000ml IV 05/10/20 19:34 80 mls/hr .Q24H MARCI Administration Ferric Sodium Gluconate 125 mg 110 mls @ 110 mls/hr 04/11/20 18:00 04/11/20 20:36 / Sodium Chloride IV 04/17/20 18:59 Infused Q24H MARCI Infusion Pantoprazole Sodium 40 mg/ 10 mls @ 5 mls/min 04/11/20 21:00 04/12/20 08:33 Syringe IV 05/11/20 20:59 5 mls/min BID MARCI Administration Metoprolol Succinate 100 mg 04/10/20 21:00 04/12/20 07:48 Toprol Xl PO 05/10/20 20:59 100 mg BID MARCI Administration NPO Date Last Intake of Fluids: 04/11/20 Time Last Intake of Fluids: 09:00 Last Intake of Fluids Comment: SIP OF WATER WITH PILL Date Last Intake of Solids: 04/10/20 Time Last Intake of Solids: 13:00 Past Medical History Medical History Acquired claw toe of left foot (Inactive) Acquired claw toe of right foot (Inactive) Anemia ASCVD (arteriosclerotic cardiovascular disease) (Chronic) Atrial fibrillation Callus (Resolved) CHF (congestive heart failure) (Chronic) Controlled type 2 diabetes mellitus with diabetic peripheral angiopathy without gangrene Diabetes mellitus with diabetic polyneuropathy (Chronic) Diabetic neuropathy (Chronic) DM II (diabetes mellitus, type II), controlled (Chronic) HTN (hypertension) (Chronic) Hyperkalemia Hyperlipidemia (Chronic) Hypertension Hypokalemia snf (current) use 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 Neuropathic ulcer of toe of left foot (Acute) Neuropathic ulcer of toe of right foot (Resolved) Obesity Permanent atrial fibrillation Surgical aftercare, skin or subcutaneous tissue (Resolved) Past Family History Family History Mother Congestive heart failure Diabetes Hypertension Cardiac disorder Brother Diabetes Polycythemia Pharyngeal neoplasm Pulmonary embolism Father Lung cancer Acute myocardial infarction Hypertension Cardiac disorder Myocardial infarction Denies family history of Ovarian cancer Crohn's disease Colorectal cancer Past Surgical History Surgical History (Updated 04/12/20 @ 09:23 by Wood David MD) H/O hernia repair H/O splenectomy History of esophagogastroduodenoscopy (EGD) History of knee replacement History of total abdominal hysterectomy Hx of appendectomy Hx of cholecystectomy Hx of tonsillectomy S/P aortic valve replacement (2012) S/P gastric bypass (Resolved) S/P mitral valve replacement (2011) S/P pericardial window creation (2011) Status post panniculectomy Social History Smoking Status: Never smoker Hx Alcohol Use: Yes Alcohol type: hard liquor alcohol intake frequency: a few times a month Hx Substance Use: No substance use type: does not use Physical Exam Vital Signs Last Vital Signs Temp 36.6 C 04/12/20 07:38 Pulse 75 04/12/20 07:38 Resp 20 04/12/20 07:38 BP 108/62 04/12/20 07:38 Pulse Ox 97 04/12/20 07:38 Testing Laboratory Results 04/12/20 05:40 04/12/20 05:40 PT 20.3 Seconds (9.0-12.0) H 04/12/20 07:52 INR 2.0 (0.9-1.1) H 04/12/20 07:52 APTT 35.6 Seconds (21.0-31.0) H 04/10/20 13:07 Urine Color Yellow 04/10/20 13:45 Urine Appearance Clear (Clear) 04/10/20 13:45 Urine pH 6.5 (4.5-7.5) 04/10/20 13:45 Ur Specific [place] 1.012 (1.000-1.030) 04/10/20 13:45 Urine Protein Negative (Negative) 04/10/20 13:45 Urine Glucose (UA) Negative (Negative) 04/10/20 13:45 Urine Ketones Negative (Negative) 04/10/20 13:45 Urine Nitrite Negative (Negative) 04/10/20 13:45 Ur Leukocyte Esterase Trace (Negative) H 04/10/20 13:45 Urine WBC (Auto) 1-5 /hpf (0-5) 04/10/20 13:45 Urine RBC (Auto) 0-4 /hpf (0-4) 04/10/20 13:45 U Hyaline Cast (Auto) 1-5 /lpf (0-5) 04/10/20 13:45 U Epithel Cells (Auto) 10-20 /lpf (0-5) H 04/10/20 13:45 Urine Bacteria (Auto) Negative (Negative) 04/10/20 13:45 Blood Type O Positive 04/10/20 13:07 Antibody Screen POSITIVE A 04/10/20 13:07 Electrocardiogram Date: 04/11/20 Findings: + AFIB @ (69) and + [facility] Chest X-Ray Date: 04/10/20 Findings: + NAD and + cardiomegaly
[2020-04-12] MEDS ORDERED: PROPOFOL IV EMULSION 10 MG/ML 20 ML VIAL IV ONE (10:08)
[2020-04-12] MEDS ORDERED: LIDOCAINE HCL 2% 2 ML VIAL/AMP(20MG/ML) INFIL ONE (10:08)
--- NOTE | 2020-04-12 10:56 | Gastroenterology Progress Note ---
Date of Service April 12, 2020 Assessment & Plan (1) Acute blood loss anemia: Continue current therapy Proceed with colonoscopy today for further evaluation of acute blood loss anemia. Admission and Anticipated Discharge Date Admission Date: April 10, 2020 Nima Harmon tolerated the bowel prep and clear liquid diet last not without problems. She states that she initially saw some blood in her stool with the bowel prep, but this, "cleared up pretty quick." She denies any abdominal pain, lightheadedness, dizziness, fevers, chills, nausea, vomiting or diarrhea. She has no further complaints. Review of Systems Review of Systems: All systems reviewed & are unremarkable except as noted in HPI & below Physical Exam Constitutional: WD/WN, vitals as above Respiratory: normal respiratory effort, lungs clear to auscultation Cardiovascular: RRR, no murmur, no edema Gastrointestinal (Abdomen): normal bowel sounds, soft, nontender, no hepatosplenomegaly Results & Data Results & Data ([facility]) Vital Signs (Past 12 Hours) Vital Signs Temp Pulse Resp BP BP Pulse Ox 04/12/20 07:38 36.6 C 75 20 108/62 97 04/12/20 03:23 36.7 C 80 18 145/76 H 95 04/11/20 23:15 36.7 C 73 18 101/62 97 PG Care Time/CCT Total # of Minutes Spent Total Time Spent with Patient: Total time spent is greater than 50% in coordination of care (as documented) at patient's floor/unit and/or counseling patient: Coding Level of Care Code None Diagnoses Acute blood loss anemia D62
--- NOTE | 2020-04-12 11:47 | GI REPORT ---
Patient Name: Eden Wagner Procedure Date: 04/12/2020 11:11 AM Date of : 1945 Admit Type: Inpatient Age: 74 Gender: Female Attending MD: Brayan Brizuela DO Procedure: Colonoscopy Providers: Brayan Brizuela DO Referring MD: Tunde Arora Indications: Acute post hemorrhagic anemia Medicines: Monitored Anesthesia Care Complications: No immediate complications. Estimated Blood Loss: Estimated blood loss: none. Procedure: Pre-Anesthesia Assessment: - Prior to the procedure, a History and Physical was performed, and patient medications and allergies were reviewed. The patient's tolerance of previous anesthesia was also reviewed. The risks and benefits of the procedure and the sedation options and risks were discussed with the patient. All questions were answered, and informed consent was obtained. Prior Anticoagulants: The patient has taken Coumadin (warfarin), last dose was 3 days prior to procedure. ASA Grade Assessment: III - A patient with severe systemic disease. After reviewing the risks and benefits, the patient was deemed in satisfactory condition to undergo the procedure. After I obtained informed consent, the scope was passed under direct vision. Throughout the procedure, the patient's blood pressure, pulse, and oxygen saturations were monitored continuously. The Colonoscope was introduced through the anus and advanced to the terminal ileum. The colonoscopy was performed without difficulty. The patient tolerated the procedure well. The quality of the bowel preparation was good. The terminal ileum, ileocecal valve, appendiceal orifice, and rectum were photographed. Findings: The perianal and digital rectal examinations were normal. Four sessile polyps were found in the ascending colon. The polyps were 5 to 15 mm in size. These polyps were removed with a piecemeal technique using a hot snare. Resection and retrieval were complete. To prevent bleeding after the polypectomy, four hemostatic clips were successfully placed (MR conditional). There was no bleeding at the end of the procedure. Multiple small-mouthed diverticula were found in the sigmoid colon. Non-bleeding internal hemorrhoids were found during retroflexion. The hemorrhoids were small. Impression: - Four 5 to 15 mm polyps in the ascending colon, removed piecemeal using a hot snare. Resected and retrieved. Clips (MR conditional) were placed. - Diverticulosis in the sigmoid colon. - Non-bleeding internal hemorrhoids. Recommendation: - Resume previous diet. - Continue present medications. - Repeat colonoscopy for surveillance based on pathology results. - Return to primary care physician as previously scheduled. Brayan Brizuela, DO 04/12/2020 11:47:09 AM This report has been signed electronically. Note Initiated On: 04/12/2020 11:11 AM Number of Addenda: 0 I attest to the content of the Intraoperative Record and orders documented therein, exceptions below {[id number]}
--- NOTE | 2020-04-12 11:50 | Anesthesiology Progress Note ---
Date of Service April 12, 2020 Anesthesia Post Procedure Vital Signs Vital Signs: Temp Pulse Pulse Pulse Resp BP BP 04/12/20 11:00 36.6 C 70 20 04/12/20 07:38 36.6 C 75 20 108/62 04/12/20 03:23 36.7 C 80 18 04/11/20 23:15 36.7 C 73 18 04/11/20 20:02 36.7 C 85 18 133/69 04/11/20 18:45 36.4 C L 85 126/73 04/11/20 16:42 76 18 04/11/20 16:39 36.5 C 86 109/65 04/11/20 16:35 91 H 04/11/20 16:26 78 18 04/11/20 16:15 36.5 C 75 18 04/11/20 16:10 36.5 C 80 18 114/57 L 04/11/20 15:39 36.7 C 73 18 140/68 04/11/20 15:32 36.7 C 73 18 04/11/20 15:09 37.3 C 72 20 115/68 04/11/20 14:54 37.0 C 75 18 111/57 L 04/11/20 14:35 37.2 C 81 18 109/69 04/11/20 11:52 36.8 C 79 18 103/64 BP Pulse Ox 04/12/20 11:00 163/81 H 99 04/12/20 07:38 97 04/12/20 03:23 145/76 H 95 04/11/20 23:15 101/62 97 04/11/20 20:02 98 04/11/20 18:45 04/11/20 16:42 129/51 L 99 04/11/20 16:39 04/11/20 16:35 04/11/20 16:26 130/64 99 04/11/20 16:15 110/56 L 99 04/11/20 16:10 99 04/11/20 15:39 100 04/11/20 15:32 140/68 100 04/11/20 15:09 98 04/11/20 14:54 100 04/11/20 14:35 97 04/11/20 11:52 99 Pain Intensity Bilateral Head: Pain Intensity: 4 Transfer of Care Handoff Completed per policy Notes Mental Status: alert / awake / arousable Patient Amnestic to Procedure: Yes Nausea / Vomiting: adequately controlled Pain: adequately controlled Airway Patency, RR, SpO2: stable & adequate BP & HR: stable & adequate Hydration State: stable & adequate Anesthetic Complications: no major complications apparent
[2020-04-12] MEDS: BUMETANIDE 1 MG TAB PO SCH ×2 (15:23→15:46)
[2020-04-12] MEDS: SODIUM FERRIC GLUCONATE 125 MG in 0.9 % SODIUM CHLORIDE 100 ML IV SCH (17:23)
--- NOTE | 2020-04-12 18:04 | Hospitalist Progress Note ---
Date of Service April 12, 2020 Assessment & Plan (1) Melena: 74 female h/o ulcers following gastric bypass surgery. Last colonoscopy/EGD reported to be approx 4 years ago, tx'd with IV iron and protonix with Dr. Brizuela --> Per records, EGD 11/06/16 for coffee ground emesis which did not show ulcers * H/h dropped to 6.9/23.2 on 04/11--> ordered 1 unit PRBC, although patient only received 260cc/310cc due to returning from [facility] with bad IV sites and prolonged time obtaining new IV site * Protonix gtt transitioned to 40mg IV BID * EGD without abnormality * GI consult -- appreciate assistance -- for lower scope today with Dr. Brizuela * Iron studies consistent with iron deficiency anemia -- iron low at 15, TIBC and transferrin high at 509, 404 respectively. Trans sat 3% * H/h low at 7.4/24.5 * IV Iron stat -- ordered daily for total of 8 doses (on day 2 of treatment) --> CM asssiting with setting up transfusions through [facility]. Will need US guided IV prior to d/c * NPO for colonoscopy with Dr. Brizuela today * Monitor daily weights, I&O (2) Acute blood loss anemia: * Secondary to suspected GIB with reported melena * PRBC x 1 unit as above * Iron studies c/w iron def anemia * Scope as above (3) Anemia: * Hx of. Had received iron transfusions and oral supplementation in the past but has not been taking in quite some time. * Iron studies c/w iron def. anemia * Ferrlicit as above-- patient with reported adverse reaction to Venofer in 2013 * CBC in AM (4) Chronic diastolic (congestive) heart failure: * 2nd to valvular disease. Chronic. Follows with Dr. Lee. * Dry weight 212-213lb. Patient reports taking 5mg metolazone on almost weekly bases when weights are up ~10lb. * Daily weights, I&O * Weight currently 215lb although patient did not yet receive her bumex * Home bumex (4mg PO daily) ordered as 2mg IV daily as patient currently NPO -->switched to PO morning of 04/12 (5) Weakness: * Likely secondary to #1. CXR negative. UA negative * PT/OT (6) STACIE (acute kidney injury): * RESOLVED * Cr 1.27, eGFR 49.5 on admission. Baseline Cr appears to be ~1.0 * Cr 0.92 * Continue to monitor (7) Permanent atrial fibrillation: * Follows locally with Dr. Lee. * On warfarin -- 5mg MWF, 2.5mg SSTR * Coumadin on hold in setting of GIB --> RESUME after procedure (8) S/P mitral valve replacement: * H/o. Noted (9) S/P aortic valve replacement: * H/o. Noted (10) Hypertension: * Chronic. Stable * Currently 135/84 * Continue metoprolol 100mg BID * Continue to monitor (11) alf (current) use 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: * On coumadin for permanent afib (12) H/O gastric bypass: * h/o -- takes daily folic acid, vit D3, calcium and monthly IM B12 (13) H/O splenectomy: * H/o (14) GERD (gastroesophageal reflux disease): * Chronic * Protonix as above (15) Hypokalemia: * K 2.9 * Ordered 40 meq PO * Continue to monitor (16) DVT prophylaxis: * On coumadin. INR subtherapeutic today at 2.0 -- on hold currently in setting of GIB, resumed this evening as patient with aortic/mitral valve * Repeat INR in AM * SCDs Dispo: scope today, likely discharge in AM pending results Admission and Anticipated Discharge Date Admission Date: April 10, 2020 Supervising Physician Co-Signing Physician Notes Attending Attestation - Chart reviewed in detail, care plan d/w RAMESH Tovar. I agree w/ the bliss components of her documentation. EGD 04/11 with anastomotic ulcer but no signs of bleeding. Colonoscopy today by Dr Brizuela with 4 polyps, diverticulosis, and internal hemorrhoids but no active bleeding. H/H remain low but acceptable following PRBCs. Cont Fe infusions. Cautiously continue coumadin for AVR/MVR. Repeat labs am. d/c home hopefully tomorrow. outpatient capsule endoscopy? Valente GAYTAN MD Subjective Patient evaluated this morning. Still with fatigue, minimal improvement. Dyspneic with exertion. Patient states she did have some blood with bowel prep for colonoscopy today but subsided by the end of the prep. Plans for colonoscopy later this morning for further evaluation of anemia/GIB. Would like to hold off on blood transfusion if possible. Patient does have concerns regarding her weight up to 215lb but states she will take bumex after returning from scope. Denies chest pain or palpitations but does continue to endorse fatigue. Discussed continued iron transfusions in hope of bringing her counts up. Denies fevers, chest pain, abdominal pain, n/v at this time. NPO for procedure. All questions/concerns addressed. Review of Systems Review of Systems: All systems reviewed & are unremarkable except as noted in HPI & below Physical Exam Constitutional: WD/WN, vitals as above + obese; no acute distress general pallor Eyes: + anicteric sclerae and PERRL ENMT: external ear and nose normal, oropharynx normal Neck: trachea midline, no thyromegaly Respiratory: normal respiratory effort; no respiratory distress and no labored breathing Auscultation: + diminished lung sounds and + crackles (faint bibasilar crackles); no wheezes Cardiovascular: Rate/Rhythm: + irregularly irregular Heart Sounds: + murmur (JADE) Vessels: no JVD Extremities: + edema (non-pitting bilateral LE with baseline erythema per pt) Gastrointestinal (Abdomen): normal bowel sounds, soft, nontender, no hepatosplenomegaly Musculoskeletal: no cyanosis or clubbing, extremities motor strength 5/5 Skin: no rashes, warm and dry Neurologic: PERRL, EOMI, accommodation nl, no face palsy, no dysarthria Psychiatric: A+Ox3, euthymic affect Lymphatic: no cervical or axillary lymphadenopathy Results & Data Results & Data ([facility]) Vital Signs (Past 12 Hours) Vital Signs Temp Pulse Pulse Resp BP BP Pulse Ox 04/12/20 16:23 36.6 C 76 19 135/84 100 04/12/20 12:55 36.4 C L 66 18 149/86 H 100 04/12/20 12:34 36.4 C L 65 20 148/80 H 97 04/12/20 12:16 62 20 128/66 97 04/12/20 12:01 65 17 135/65 100 04/12/20 11:46 76 26 H 125/60 100 04/12/20 11:00 36.6 C 70 20 163/81 H 99 04/12/20 07:38 36.6 C 75 20 108/62 97 Laboratory Results 04/12/20 04/12/20 04/12/20 Range/Units 07:52 05:40 05:40 WBC 9.15 (4.8-10.8) K/uL RBC 3.38 L (4.2-5.4) M/uL Hgb 7.4 L (12.0-16.0) g/dL Hct 24.5 L (37-47) % MCV 72.5 L (80-100) fL MCH 21.9 L (25-34) pg MCHC 30.2 L (32-36) g/dL RDW Std Deviation 50.7 H (36.4-46.3) fL RDW Coeff of Donald 19.3 H (11.5-14.5) % Plt Count 452 H (130-400) K/uL MPV 8.6 (7.4-10.4) fL Absolute Nucleated RBC 0.04 H (0-0) K/uL Nucleated RBC % (auto) 0.4 % PT 20.3 H (9.0-12.0) Seconds INR 2.0 H (0.9-1.1) Sodium 144 (136-145) mmol/L Potassium 2.9 L (3.5-5.1) mmol/L Chloride 106 (98-107) mmol/L Carbon Dioxide 30 (21-32) mmol/L Anion Gap 8.0 (3-11) BUN 34 H (7-18) mg/dl Creatinine 0.92 (0.6-1.2) mg/dl Est Cr Clr Drug Dosing 67.3 ml/min Est GFR ( Amer) 71.6 Est GFR (Non-Af Amer) 61.8 BUN/Creatinine Ratio 36.9 H (10-20) Glucose 99 (70-99) mg/dl Calcium 8.3 L (8.5-10.1) mg/dl Crossmatch 04/11/20 04/10/20 Range/Units 19:37 13:07 WBC 7.29 (4.8-10.8) K/uL RBC 3.57 L (4.2-5.4) M/uL Hgb 7.7 L (12.0-16.0) g/dL Hct 26.0 L (37-47) % MCV 72.8 L (80-100) fL MCH 21.6 L (25-34) pg MCHC 29.6 L (32-36) g/dL RDW Std Deviation 50.8 H (36.4-46.3) fL RDW Coeff of Donald 19.5 H (11.5-14.5) % Plt Count 462 H (130-400) K/uL MPV 8.5 (7.4-10.4) fL Absolute Nucleated RBC 0.04 H (0-0) K/uL Nucleated RBC % (auto) 0.5 % PT (9.0-12.0) Seconds INR (0.9-1.1) Sodium (136-145) mmol/L Potassium (3.5-5.1) mmol/L Chloride (98-107) mmol/L Carbon Dioxide (21-32) mmol/L Anion Gap (3-11) BUN (7-18) mg/dl Creatinine (0.6-1.2) mg/dl Est Cr Clr Drug Dosing ml/min Est GFR ( Amer) Est GFR (Non-Af Amer) BUN/Creatinine Ratio (10-20) Glucose (70-99) mg/dl Calcium (8.5-10.1) mg/dl Crossmatch See Detail PG Care Time/CCT Total # of Minutes Spent Total Time Spent with Patient: Total time spent is greater than 50% in coordination of care (as documented) at patient's floor/unit and/or counseling patient: Coding Level of Care Code 53527 Subseq Hosp Care Lvl 2 Diagnoses Melena K92.1 Acute blood loss anemia D62 Anemia D64.9 Chronic diastolic (congestive) heart failure I50.32 Weakness R53.1 STACIE (acute kidney injury) N17.9 Permanent atrial fibrillation I48.21 S/P mitral valve replacement Z95.2 S/P aortic valve replacement Z95.2 Hypertension I10 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
[2020-04-12] MEDS ORDERED: WARFARIN SOD 5 MG TAB PO SCH (18:05)
--- NOTE | 2020-04-12 19:43 | Electrocardiogram Report ---
Test Reason : Blood Pressure : / mmHG Vent. Rate : 076 BPM Atrial Rate : 000 BPM P-R Int : 000 ms QRS Dur : 090 ms QT Int : 448 ms P-R-T Axes : 000 -28 069 degrees QTc Int : 504 ms Atrial fibrillation Incomplete right bundle branch block Anteroseptal infarct (cited on or before 11-APR-2020) Abnormal ECG When compared with ECG of 11-APR-2020 06:48, Criteria for Inferior infarct are no longer Present Confirmed by Ramesh Whitney ([id number] on 04/12/2020 7:43:08 PM Referred By: REFERRED SELF Confirmed By:Francisco Whitney
[2020-04-13 07:40] LABS: INR 2.1 (0.9-1.1); Prothrombin Time 21.6 Seconds (9.0-12.0)
[2020-04-13 07:46] LABS: Hematocrit (blood only) 26.6 % (37-47); Hemoglobin 7.7 g/dL (12.0-16.0); Mean Corpuscular Hemoglobin 21.4 pg (25-34); Mean Corpuscular Hgb Conc 28.9 g/dL (32-36); Mean Corpuscular Volume 74.1 fL (80-100); Mean Platelet Volume 8.6 fL (7.4-10.4); Nucleated RBC % (auto) 0.7 %; Platelet Count 453 K/uL (130-400); RDW Coefficient of Variation 19.8 % (11.5-14.5); RDW Standard Deviation 51.8 fL (36.4-46.3); Red Blood Count 3.59 M/uL (4.2-5.4); White Blood Count 12.94 K/uL (4.8-10.8)
[2020-04-13 07:57] LABS: Anisocytosis Present; Basophils # (auto) 0.08 K/uL (0-0.2); Basophils % (auto) 0.6 %; Eosinophils # (auto) 0.74 K/uL (0-0.5); Eosinophils % (auto) 5.7 %; Hypochromasia Present; Immature Granulocytes # (auto) 0.14 K/uL (0.00-0.02); Immature Granulocytes % (auto) 1.1 %; Lymphocytes # (auto) 2.34 K/uL (1.2-3.4); Lymphocytes % (auto) 18.1 %; Monocytes # (auto) 1.59 K/uL (0.11-0.59); Monocytes % (auto) 12.3 %; Neutrophils # (auto) 8.05 K/uL (1.4-6.5); Neutrophils % (auto) 62.2 %; Poikilocytosis Present
[2020-04-13 08:03] LABS: Albumin Level 3.1 gm/dl (3.4-5.0); BUN Creatinine Ratio 24.5 (10-20); Calcium 8.7 mg/dl (8.5-10.1); Creatinine Clr Calc Pharmacy 64.4 ml/min; Est GFR (African American) 67.2; Est GFR (Non-African American) 57.9
[2020-04-13] MEDS: PANTOprazole 40 MG in SYRINGE 0 ML IV SCH (08:03)
[2020-04-13] MEDS: BUMETANIDE 1 MG TAB PO SCH (08:03)
[2020-04-13] MEDS: METOPROLOL SUCC 50MG EXT REL TAB PO SCH (08:03)
[2020-04-13] MEDS: ATORVASTATIN 10 MG TAB PO SCH (08:03)
[2020-04-13] MEDS: FOLIC ACID 1 MG TAB PO SCH (08:03)
[2020-04-13 08:08] LABS: Albumin Globulin Ratio 0.8 (0.9-2); Bilirubin,Total 0.6 mg/dl (0.2-1); Globulin 3.7 gm/dl (2.5-4.0); Total Protein 6.8 gm/dl (6.4-8.2)
[2020-04-13] MEDS ORDERED: POTASSIUM CHLORIDE 20 MEQ TABCR PO STA (08:22)
[2020-04-13] MEDS ORDERED: POTASSIUM CHLORIDE 20 MEQ/15 ML UDC PO STA (08:33)
[2020-04-13] MEDS ORDERED: POTASSIUM CHLORIDE 20 MEQ/15 ML UDC PO SCH (09:00)
[2020-04-13] MEDS ORDERED: SODIUM FERRIC GLUCONATE 125 MG in 0.9 % SODIUM CHLORIDE 100 ML IV SCH (10:30)
--- NOTE | 2020-04-13 12:02 | Discharge Summary ---
Date of Service April 13, 2020 Admission HPI Per Admitting Provider 74 female with PMHx significant for CAD (aortic and mitral valve replacement), afib (on coumadin), anemia, HTN, CHF, pre-DM, hx gastric bypass, GERD presented to the emergency department with progressive weakness and fatigue as well as low blood count. She states she has been feeling week for the past several weeks with associated shortness of breath. Patient did have history of ulcers following her gastric bypass surgery. Last ulcer about 3-4 years ago with reported EGD/Colonoscopy. Has been having dark tarry stools for the last 3-4 days. Always dark in color, denies BRBPR. Denies emesis. Confirms intermittent nausea depending on what she eats. For instance, chicken noodle soup did not agree with her and she threw it up but yesterday she had broth and was fine. She states she has followed with Dr. Sutton in the past for iron transfusions and then oral supplementation but that it has been years since she has seen him. She states she had chills the day before yesterday. States she felt like she couldn't get warm. She states she turned the heat up to 74 degrees and was still requiring multiple blankets to warm up. She states she had the flu earlier this year and then was told she developed a pneumonia that lasted two weeks. She continues to voice anosmia since the earlier this year and states she believes she may still be positive for COVID-19 but her test was negative. She was treated with levofloxacin but states she believes it was a viral cause, as it lasted much longer. Denies sputum production at this time. She notes her shortness of breath has been going on for several years, but has gotten worse over the past month. She states she was to get labs prior to her next appointment with Dr. Lee, but she had been feeling increasingly weak and decided to get them done early. She states she received a call from the PA at the office to go to the hospital for an infusion. She states she believes she had blood infusions in the past but states her hemoglobin had dropped in the past and it came back up with iron infusions alone. She states she did take her dose of bumex today, 4mg, for a weight of 215lb, and states her dry weight is typically 212-213lbs. She states when she is approximately up 10lb, she takes a dose of metolazone, which occurs approximately once weekly. When she takes her 5mg PO metolazone, she states she increases the amount of potassium she takes because she deals with low potassium. ER Course: WBC 12.5k, H/h 7.8/26.7, Plt 554, INR 2.8, Na 135, K 3.0, Cl 93, Bun 60, Cr 1.27, Mag 2.6, Trop <0.015 EKG 72bpm, incomplete RBBB, Nonspecific T wave abn in lateral leads. Fecal occult ordered. Admission Exam Per Admitting Provider Physical Exam Constitutional: WD/WN, vitals as above + obese; no acute distress general pallor Eyes: + anicteric sclerae and PERRL ENMT: external ear and nose normal, oropharynx normal Neck: trachea midline, no thyromegaly Respiratory: normal respiratory effort; no respiratory distress and no labored breathing Auscultation: + diminished lung sounds and + crackles (faint crackles posterior lung mathis); no wheezes Cardiovascular: Rate/Rhythm: + irregularly irregular Heart Sounds: + murmur (JADE) Vessels: no JVD Extremities: + edema (non-pitting bilateral LE with baseline erythema per pt) Gastrointestinal (Abdomen): normal bowel sounds, soft, nontender, no hepatosplenomegaly Musculoskeletal: no cyanosis or clubbing, extremities motor strength 5/5 Skin: no rashes, warm and dry Neurologic: PERRL, EOMI, accommodation nl, no face palsy, no dysarthria Psychiatric: A+Ox3, euthymic affect Lymphatic: no cervical or axillary lymphadenopathy Principal Diagnosis Melena Anemia Afib on coumadin CHF due to valvular disease Discharge Exam General: awake, alert, no apparent distress, + overweight Head: Normocephalic, atraumatic ENT: PERRL, EOMI, no pharyngeal exudate, mucous membranes moist Chest: Clear to auscultation, on room air, no adventitious breath sounds Cardiac: irregularly irregular, no murmur, no JVD, normal peripheral pulses, good capillary refill Abdominal: NABS x 4 quadrants, soft, nondistended, nontender to palpation, no rebound, guarding or tenderness Extremities: Normal inspection, no peripheral edema or erythema, calfs nontender to palpation Psych: Normal mood and affect Neuro: AAO x 3, strength intact bilaterally and rated 5/5, no motor deficits, speech is clear, no peripheral sensory deficits Discharge Data Allergies Allergy/AdvReac Type Severity Reaction Status Date / Time iron dextran complex Allergy Severe RASH Verified 04/10/20 12:55 choline salicylate Allergy Intermediate TRILISATE-r Verified 04/10/20 12:55 nay magnesium salicylate Allergy Intermediate TRILISATE-r Verified 04/10/20 12:55 nay Trilisate Allergy Intermediate TRILISATE-r Verified 11/05/16 17:37 nay mometasone furoate Allergy Unknown Pt has no Verified 04/10/20 12:55 recollection of this Ferric Oxide Allergy Severe VENOFER Uncoded 04/10/20 12:55 INFUSION-RASH,WEAKNESS,BLEEDING-HOSPITALIZED Consultations 04/10/20 14:44 ED Decision to Admit Stat 04/10/20 19:35 Consult Gastroenterology Routine Procedures Performed Operation Date: 04/11/20 09:00 Actual Procedures p Esophagogastroduodenoscopy - Brayan Brizuela DO Operation Date: 04/12/20 08:30 Actual Procedures p Colonoscopy Polypectomy - Brayan Brizuela DO Ordered Studies 04/12/20 18:02 US guide vascular access Routine Hospital Course (1) Melena: 74 female h/o ulcers following gastric bypass surgery. Last colonoscopy/EGD reported to be approx 4 years ago, tx'd with IV iron and p rotonix with Dr. Brizuela --> Per records, EGD 11/06/16 for coffee ground emesis which did not show ulcers * H/h dropped to 6.9/23.2 on 04/11--> ordered 1 unit PRBC, although patient only received 260cc/310cc due to returning from [facility] with bad IV sites and prolonged time obtaining new IV site * Protonix IV BID, resume po on dc * EGD without abnormality * GI consult -- appreciate assistance --colonoscopy by Dr. Brizuela on 04/13 * Iron studies consistent with iron deficiency anemia -- iron low at 15, TIBC and transferrin high at 509, 404 respectively. Trans sat 3% * H/h remains stable throughout admission * IV Iron x 8 doses, started on 04/11--> CM setting up transfusions through [facility] through the holiday weekend * Monitor daily weights, I&O (2) Acute blood loss anemia: * Secondary to suspected GIB with reported melena * PRBC x 1 unit as above * Iron studies c/w iron def anemia * Colonoscopy complete (3) Anemia: * Hx of. Had received iron transfusions and oral supplementation in the past but has not been taking in quite some time. * Iron studies c/w iron def. anemia * Ferrlicit as above-- patient with reported adverse reaction to Venofer in 2013 (4) Chronic diastolic (congestive) heart failure: * 2nd to valvular disease. Chronic. Follows with Dr. Lee. * Dry weight 212-213lb. Patient reports taking 5mg metolazone on almost weekly bases when weights are up ~10lb. * Daily weights, I&O * Bumex (5) Weakness: * Likely secondary to #1. CXR negative. UA negative * PT/OT (6) STACIE (acute kidney injury): * RESOLVED * Cr 1.27, eGFR 49.5 on admission. Baseline Cr appears to be ~1.0 (7) Permanent atrial fibrillation: * Follows locally with Dr. Lee. * On warfarin -- 5mg MWF, 2.5mg SSTR * Coumadin initially was on hold in setting of GIB --> RESUMED after procedure- discussed with cardiology (8) S/P mitral valve replacement: * H/o. Noted (9) S/P aortic valve replacement: * H/o. Noted (10) Hypertension: * Chronic. 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 INR subtherapeutic today at 2.0 -- on hold currently in setting of GIB, resumed this evening as patient with aortic/mitral valve * Repeat INR in AM * SCDs Total Time Total Time Spent Total Time Spent (In Minutes): 34 min Discharge Plan Discharge Items Patient Disposition: Home - Home Health Services Reason For Visit: ANEMIA,WEAKNESS Discharge Diagnosis: Anemia, iron deficiency and post hemorrhagic Condition on Discharge: Fair Activity: Resume your previous activity Lifting: Gradually increase as tolerated Bathing: No limitations Exercise/Sports: Gradually increase as tolerated Driving/Machine Use: No limitations Non-emergency contact: Primary Care Provider Call non-emergency contact if: you have any medication questions and your symptoms worsen Follow-up/Referrals: Obey Lee MD [Physician] - (Within 2 weeks) Brayan Brizuela DO [Physician] - (Within 2 weeks.) Fernie Rodriguez MD [Primary Care Provider] - Diet: Heart Healthy Ambulatory Orders: Basic Metabolic Panel (Routine) Timeframe: 3 Days Location: Determined by Patient Ordered By: Lilian Peck Complete Blood Count no Diff (Routine) Timeframe: 3 Days Location: Determined by Patient Ordered By: Lilian Peck Addtl Attending Provider Instructions: You were admitted to [facility] due to progressive weakness and fatigue and diagnosed with anemia due to gastrointestinal bleeding and iron deficiency. During your stay here you were treated with supportive care, medications including IV iron transfusions and your symptoms improved. Imaging studies which were completed include colonoscopy, and were abnormal where Four polps were removed and sent for pathology reports which are still in process, as well as diverticulosis in the sigmoid colon, and nonbleeding internal hemorrhoids. Medications: Continue taking you medications as prescribed You should continue IV iron transfusions for 5 more doses starting on 04/14 for a total of 8 doses. Home health will be set up for you to have this done as an outpatient. A peripherally guided IV was placed so that you can get transfusions at home. Do not lift more than 10 lbs for the first few days, and gradually increase as tolerated with lifting. [facility] has arranged for infusions at 8AM starting tomorrow on 04/14 and 04/15. Please arrive at that time here at the hospital. Appointments: Follow up with PCP within 1-2 weeks, please call and schedule an appointment. Follow up with GI, Dr. Brizuela within 2-4 weeks. Please call and schedule this appointment. Pending Studies at Discharge: Yes Studies:: Polyp pathology from colonoscopy Stand-Alone Forms: [facility], Work/School Release (Inpt), Smoking Cessation Medications and DC Order Prescriptions: Continued metoprolol succinate 200 mg tablet extended release 24 hr 100 mg PO BID RF: 0 atorvastatin 10 mg tablet 10 mg PO QAM Qty: 90 RF: 0 potassium chloride 20 mEq/15 mL liquid 20 meq PO DAILY Qty: 3800 RF: 3 calcium carbonate [Calcium 500] 500 mg calcium (1,250 mg) tablet 500 mg PO DAILY RF: 0 bumetanide 1 mg tablet 4 mg PO QAM RF: 0 warfarin 2.5 mg tablet 2.5 - 5 mg PO UD RF: 0 cyanocobalamin (vitamin B-12) 1,000 mcg/mL solution 1,000 mcg IM MONTHLY RF: 0 folic acid 1 mg tablet 1 mg PO QAM RF: 0 multivitamin with iron tablet 1 tab PO QAM RF: 0 cholecalciferol (vitamin D3) 2,000 unit capsule 2,000 units PO QAM RF: 0 Discontinued levalbuterol tartrate [Xopenex HFA] 45 mcg/actuation HFA aerosol inhaler 2 puffs INH Q6H PRN (Reason: shortness of breath or wheezing) Qty: 15 RF: 2 Discharge Orders: Discharge Order (Routine); Ordered 04/13/20 Ordered By: Lilian Deleon/Other Patient Handouts: Anemia, Iron Sucrose injection Admission Data Admit Date/Time: 04/10/20 15:10 Attending Provider: Stuart Peters Admit Provider: Tunde Arora Primary Care Provider: Fernie Rodriguez Other Providers: Tunde Arora ; Brayan Brizuela Other Interventions: Discharge Summary Assessment (RN) Last Done: 04/12/20 12:18 Coding Level of Care Code D/C Day Management >30 mins Diagnoses Melena K92.1 Acute blood loss anemia D62 Anemia D64.9 Chronic diastolic (congestive) heart failure I50.32 Weakness R53.1 STACIE (acute kidney injury) N17.9 Permanent atrial fibrillation I48.21 S/P mitral valve replacement Z95.2 S/P aortic valve replacement Z95.2 Hypertension I10 Hypertension type: essential hypertension 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
== END 2020-04-13 14:14 | disposition home or self-care (01) | DRG 378 ==
LOC: ED 12:25 → 2S 15:10 → SUATTDRO 15:10 → 2S 18:53

== ENCOUNTER 2020-04-25 10:26 | Inpatient (IN) ==
[2020-04-25] MEDS ORDERED: SODIUM CHLORIDE 0.9% 250 ML IV PRN ×2 (11:17→16:49)
[2020-04-25 11:27] LABS: Hematocrit (blood only) 20.1 % (37-47); Mean Corpuscular Hgb Conc 29.9 g/dL (32-36); Mean Platelet Volume 8.5 fL (7.4-10.4); Platelet Count 448 K/uL (130-400); RDW Coefficient of Variation 25.3 % (11.5-14.5); RDW Standard Deviation 68.7 fL (36.4-46.3); Red Blood Count 2.61 M/uL (4.2-5.4); White Blood Count 13.18 K/uL (4.8-10.8)
[2020-04-25] MEDS ORDERED: PANTOPRAZOLE BOLUS/DRIP 1 EA IV STA (11:27)
[2020-04-25] MEDS ORDERED: PANTOprazole 80 MG in DEXTROSE 5% 100 ML IV ONE (11:27)
[2020-04-25 11:28] LABS: iSTAT Creatinine 0.8 mg/dl (0.6-1.3); iSTAT Hemoglobin 6.5 g/dl (12.0-16.0); iSTAT Ionized Calcium 1.22 mmol/l (1.12-1.32); iSTAT Potassium 4.4 mmol/L (3.3-5.0)
--- NOTE | 2020-04-25 11:39 | Emergency Department Note ---
History of Present Illness General Chief complaint: Abnormal Labs/Diagnostic Testing Stated complaint: LOW BLOOD COUNT,DOC REF Time Seen by Provider: 04/25/20 10:54 Source: patient, family, RN notes reviewed and old records reviewed Mode of arrival: ambulatory Limitations: no limitations History of Present Illness Provider complaint: Weakness, Black tarry stools Onset (ago): day(s) 1 Maximum Pain Intensity: 1 This is a 74-year-old female who presents the emergency department complaining of GI bleed. The patient has a history of gastric bypass as well as mitral v alve and aortic valve replacements. She is on Coumadin for this. The patient reports she was admitted to the hospital 2 weeks ago and was found to have an ulcer at the time which it was believed she was bleeding from. She went to have blood drawn by her primary care physician this morning which was found to be low. She was then sent to the emergency department. The patient is complaining of generalized weakness as well as shortness of breath if she walks more than 3 feet. Home Medications Home Medications Medication Instructions Recorded Confirmed Type metoprolol succinate 200 mg 100 mg PO BID tab 05/31/19 04/25/20 History tablet,extended release 24 hr cholecalciferol (vitamin D3) 2,000 units PO QAM 07/05/19 04/25/20 History [Vitamin D3] cyanocobalamin (vitamin B-12) 1,000 mcg IM MONTHLY 07/05/19 04/25/20 History folic acid 1 mg PO QAM 07/05/19 04/25/20 History multivitamin with iron 1 tab PO QAM 07/05/19 04/25/20 History atorvastatin 10 mg tablet 10 mg PO QAM #90 tab 08/27/19 04/25/20 History bumetanide 1 mg tablet 4 mg PO QAM tab 10/03/19 04/25/20 History calcium carbonate 500 mg calcium 500 mg PO QAM 02/05/20 04/25/20 History (1,250 mg) tablet warfarin [Coumadin] 2.5 - 5 mg PO UD 02/15/20 04/25/20 History metolazone 5 mg tablet 5 mg PO WK PRN tab 04/16/20 04/25/20 History potassium chloride 20 meq PO QAM 04/16/20 04/25/20 History acetaminophen [Tylenol] 325 mg PO QID PRN 04/25/20 04/25/20 History Allergies Allergy/AdvReac Type Severity Reaction Status Date / Time iron dextran complex Allergy Severe RASH Verified 04/25/20 11:46 choline salicylate Allergy Intermediate TRILISATE-r Verified 04/25/20 11:46 nay magnesium salicylate Allergy Intermediate TRILISATE-r Verified 04/25/20 11:46 nay Trilisate Allergy Intermediate TRILISATE-r Verified 11/05/16 17:37 nay mometasone furoate Allergy Unknown Pt has no Verified 04/25/20 11:46 recollection of this Ferric Oxide Allergy Severe VENOFER Uncoded 04/25/20 11:46 INFUSION-RASH,WEAKNESS,BLEEDING-HOSPITALIZED Past Med/Surg History Medical History Acquired claw toe of left foot (Inactive) Acquired claw toe of right foot (Inactive) Anemia ASCVD (arteriosclerotic cardiovascular disease) (Chronic) Atrial fibrillation Callus (Resolved) CHF (congestive heart failure) (Chronic) Controlled type 2 diabetes mellitus with diabetic peripheral angiopathy without gangrene Diabetes mellitus with diabetic polyneuropathy (Chronic) Diabetic neuropathy (Chronic) DM II (diabetes mellitus, type II), controlled (Chronic) HTN (hypertension) (Chronic) Hyperkalemia Hyperlipidemia (Chronic) Hypertension Hypokalemia jail (current) use 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 Neuropathic ulcer of toe of left foot (Acute) Neuropathic ulcer of toe of right foot (Resolved) Obesity Permanent atrial fibrillation Surgical aftercare, skin or subcutaneous tissue (Resolved) Surgical History H/O hernia repair H/O splenectomy History of esophagogastroduodenoscopy (EGD) History of knee replacement bilateral History of total abdominal hysterectomy Hx of appendectomy Hx of cholecystectomy Hx of tonsillectomy S/P aortic valve replacement (2011) S/P gastric bypass (Resolved) S/P mitral valve replacement (2011) S/P pericardial window creation (2011) Status post panniculectomy Family History Mother Congestive heart failure Diabetes Hypertension Cardiac disorder Brother Diabetes Polycythemia Pharyngeal neoplasm Pulmonary embolism Father Lung cancer Acute myocardial infarction Hypertension Cardiac disorder Myocardial infarction Denies family history of Ovarian cancer Crohn's disease Colorectal cancer Social History Preferred Language: [place] Communication Ability: Effective Visual Impairment: No Limitations Hearing Ability: Normal Entry Writer Required: No Beliefs That Will Affect Care: None marital status: Current Living Situation: Spouse current occupational status: retired Feels Safe at Home: Yes Smoking Status: Never smoker Hx Alcohol Use: Yes Alcohol type: hard liquor Alcohol type Comment: occassional mixed drink and beer Alcohol Intake Frequency: Holidays/Special Occasions Hx Substance Use: No Childhood Exposure to Second-Hand Smoke: No Diet Comment: pt watches diet intake s/p gastric bypass surgery caffeine: Yes during the past year weight has: decreased > 10 lbs Dental Care, Regularly: Yes Physical Activity Frequency: 3-4 Times per Week Seatbelt Use: always Sunscreen Use: Yes Review of Systems A total of 10 systems reviewed and were otherwise negative Physical Exam Vital Signs Vital Signs - 24 hr 04/25/20 10:47 04/25/20 11:00 04/25/20 11:08 Temperature 36.7 C Temperature Source Oral Pulse Rate 90 84 81 Pulse Rate [Apical] 76 Pulse Rate from SpO2 Sensor 81 Pulse Rhythm Regular Regular Pulse Strength Normal Pulse Strength [Apical] Normal Respiratory Rate 20 25 H 22 Respiratory Effort / Characteristics Non-Labored Spontaneous Non-Labored Spontaneous Respiratory Depth Normal Normal Respiratory Pattern Regular Regular Blood Pressure 105/65 117/71 Blood Pressure [Right Arm] 117/71 Blood Pressure Mean 78 93 Blood Pressure Mean [Right Arm] 86 Blood Pressure Position Sitting Blood Pressure Position [Right Arm] Lying Pulse Oximetry 100 100 100 Oxygen Delivery Method Room Air Room Air Sepsis Recent Fever Within 48 Hours No Sepsis New/Unexplained Change in Mental Status No Sepsis Action Taken by Nursing No Action Required 04/25/20 11:15 04/25/20 11:30 04/25/20 11:45 Temperature Temperature Source Pulse Rate 82 87 70 Pulse Rate [Apical] 75 Pulse Rate from SpO2 Sensor 83 81 72 Pulse Rhythm Pulse Strength Pulse Strength [Apical] Normal Respiratory Rate 20 23 15 Respiratory Effort / Characteristics Non-Labored Spontaneous Respiratory Depth Normal Respiratory Pattern Regular Blood Pressure 108/65 Blood Pressure [Right Arm] 108/65 Blood Pressure Mean 70 Blood Pressure Mean [Right Arm] 79 Blood Pressure Position Blood Pressure Position [Right Arm] Lying Pulse Oximetry 100 100 100 Oxygen Delivery Method Room Air Sepsis Recent Fever Within 48 Hours Sepsis New/Unexplained Change in Mental Status Sepsis Action Taken by Nursing 04/25/20 12:00 04/25/20 12:15 04/25/20 12:30 Temperature Temperature Source Pulse Rate 70 78 75 Pulse Rate [Apical] 72 73 Pulse Rate from SpO2 Sensor 76 76 74 Pulse Rhythm Pulse Strength Pulse Strength [Apical] Normal Normal Respiratory Rate 16 19 17 Respiratory Effort / Characteristics Non-Labored Spontaneous Non-Labored Spontaneous Respiratory Depth Normal Normal Respiratory Pattern Regular Regular Blood Pressure 107/65 117/58 L Blood Pressure [Right Arm] 107/65 117/58 L Blood Pressure Mean 79 80 Blood Pressure Mean [Right Arm] 79 77 Blood Pressure Position Blood Pressure Position [Right Arm] Lying Lying Pulse Oximetry 100 100 100 Oxygen Delivery Method Room Air Room Air Sepsis Recent Fever Within 48 Hours Sepsis New/Unexplained Change in Mental Status Sepsis Action Taken by Nursing VITAL SIGNS - Vital signs and nursing notes were reviewed. GENERAL - 74-year-old female appearing stated age who is in no acute distress. Communicates well with provider and answers questions appropriately. SKIN - Without rashes. HEAD - NC/AT. EYES - PERRL with EOMI bilaterally. Sclera anicteric. Palpebral conjunctiva pink and moist with no injection noted. EARS - No deformities of external structures noted on gross examination bilaterally. No pain elicited with palpation of the tragus bilaterally. External auditory canals without discharge or otorrhea. Tympanic membranes pearly hale without retraction or bulging. No fluid or purulent material visualized behind the TM. Handle of malleus, umbo, cone of light, pars tensa/flaccid all easily visualized. NOSE - Midline and without cyanosis. No epistaxis or purulent drainage noted. Septum midline without deviation or septal hematoma noted. MOUTH/OROPHARYNX - Without perioral cyanosis. Buccal mucosa pink and moist and without leukoplakia. Tongue midline with equal elevation of palate bilaterally. No tonsillar hypertrophy, erythema, or exudates noted. dentition noted. NECK - Neck with FROM. Supple to palpation. lymphadenopathy noted. No nuchal rigidity. LUNGS - Chest wall symmetric without accessory muscle use, intercostals retractions, or central cyanosis. Normal vesicular breath sounds CTA B/L. No wheezes, rales, or rhonchi appreciated. CARDIAC - RRR with S1/S2. No murmur, rubs, or gallops appreciated. ABDOMEN - Abdominal contour without pulsations or visible masses. BS normoactive all four quadrants. No tenderness, palpable masses, hepatosplenome kuldip, or ascites noted. Rectal: + melena, heme positive EXTREMITIES - No clubbing or peripheral cyanosis. No pretibial edema present. +3/5 radial, posterior tibial, and dorsalis pedis pulses palpated throughout. +5/5 strength noted in UE/LE bilaterally. NEUROLOGIC - Cranial nerves II through XII grossly intact. Sensory intact to light touch throughout. Patellar reflexes +2/4. PSYCH - A&Ox3 and cooperates fully with examiner. Pt is very pleasant and interacts well with examiner. Course Administered Medications Pantoprazole Sodium 40 mg/ (Dextrose) 100 mls @ 20 mls/hr IV Q5H MARCI Stop: 05/25/20 11:43 Last Admin: 04/25/20 11:52 Dose: 8 mg/hr, 20 mls/hr Documented by: [id number] Discontinued Medications Pantoprazole Sodium (Protonix Bolus/Drip) 0 mls @ 1 mls/hr IV ONE STA Stop: 04/25/20 11:28 Last Admin: 04/25/20 11:57 Dose: Not Given Documented by: [id number] Pantoprazole Sodium 80 mg/ (Dextrose) 120 mls @ 400 mls/hr IV NOW ONE Stop: 04/25/20 11:44 Last Infusion: 04/25/20 12:20 Dose: 0 mls/hr Documented by: [id number] Admin: 04/25/20 11:52 Dose: 400 mls/hr Documented by: [id number] Phytonadione 5 mg/ Sodium (Chloride) 50.5 mls @ 101 mls/hr IV ONE ONE Stop: 04/25/20 12:54 Last Admin: 04/25/20 12:54 Dose: 101 mls/hr Documented by: [id number] Phytonadione 5 mg/ Sodium (Chloride) 50.5 mls @ 101 mls/hr IV ONE STA Stop: 04/25/20 13:00 Last Admin: 04/25/20 12:54 Dose: Not Given Documented by: [id number] Acetaminophen (Ofirmev) 1,000 mg in 100 mls @ 400 mls/hr IV NOW STA Stop: 04/25/20 13:19 Last Admin: 06/04/20 13:34 Dose: 400 mls/hr Documented by: [id number] Critical Care Time I have personally spent greater than 30 minutes of critical care time in the direct management of this patient. This includes bedside care, interpretation of diagnostic studies, and testing, discussion with consultants, patient, and family members, and other required patient management activities. This 30 minutes is in excess of all separately billable procedures. Medical Decision Making Differential Diagnosis Diverticulosis, AVM, coagulopathy, colitis, inflammatory bowel disease, malignancy, Avis-Davis tear, esophagitis, peptic ulcer disease, variceal bleed, gastritis, epistaxis, fissure, hemorrhoids, as well as other pathologies. Medical Records Attestation: I reviewed the patient's medical records. Home Medications Current Medication List: was personally reviewed by me Laboratory Data Attestation: I reviewed the patient's lab results. Result diagrams: 04/25/20 11:07 04/25/20 11:07 Lab Results 04/25/20 04/25/20 04/25/20 Range/Units 11:00 11:07 11:07 WBC 13.18 H (4.8-10.8) K/uL RBC 2.61 L (4.2-5.4) M/uL Hgb 6.0 L* (12.0-16.0) g/dL POC Hgb (12.0-16.0) g/dl Hct 20.1 L* (37-47) % POC Hct (37-47) % MCV 77.0 L (80-100) fL MCH 23.0 L (25-34) pg MCHC 29.9 L (32-36) g/dL RDW Std Deviation 68.7 H (36.4-46.3) fL RDW Coeff of Donald 25.3 H (11.5-14.5) % Plt Count 448 H (130-400) K/uL MPV 8.5 (7.4-10.4) fL Immature Gran % (Auto) 1.1 % Neut % (Auto) 66.3 % Lymph % (Auto) 23.7 % [place] % (Auto) 7.8 % Eos % (Auto) 0.5 % Baso % (Auto) 0.6 % Immature Gran # (Auto) 0.14 H (0.00-0.02) K/uL Neut # (Auto) 8.73 H (1.4-6.5) K/uL Lymph # (Auto) 3.13 (1.2-3.4) K/uL [place] # (Auto) 1.03 H (0.11-0.59) K/uL Eos # (Auto) 0.07 (0-0.5) K/uL Baso # (Auto) 0.08 (0-0.2) K/uL Hypochromasia Present Anisocytosis Present Microcytosis Present Target Cells 1+ Acanthocytes (Spur) 1+ PT (9.0-12.0) Seconds INR (0.9-1.1) APTT (21.0-31.0) Seconds PTT Ratio POC Sodium (135-144) mmol/L Sodium (136-145) mmol/L POC Potassium (3.3-5.0) mmol/L Potassium (3.5-5.1) mmol/L POC Chloride (101-112) mmol/L Chloride (98-107) mmol/L Carbon Dioxide (21-32) mmol/L POC Total CO2 (24-31) mmol/L Anion Gap (3-11) POC Anion Gap (16-25) mmol/L POC BUN (7-18) mg/dl BUN (7-18) mg/dl Creatinine (0.6-1.2) mg/dl POC Creatinine (0.6-1.3) mg/dl Est Cr Clr Drug Dosing ml/min Est GFR ( Amer) Est GFR (Non-Af Amer) BUN/Creatinine Ratio (10-20) Glucose (70-99) mg/dl POC Glucose (other) (70-99) mg/dl Calcium (8.5-10.1) mg/dl POC Ioniz Calcium Crys (1.12-1.32) mmol/l Total Bilirubin (0.2-1) mg/dl AST (15-37) U/L ALT (12-78) U/L Alkaline Phosphatase (45-117) U/L Total Protein (6.4-8.2) gm/dl Albumin (3.4-5.0) gm/dl Globulin (2.5-4.0) gm/dl Albumin/Globulin Ratio (0.9-2) POC Stool Occult Blood Positive A (Negative) Crossmatch See Detail 04/25/20 04/25/2020 Range/Units 11:07 11:07 11:15 WBC (4.8-10.8) K/uL RBC (4.2-5.4) M/uL Hgb (12.0-16.0) g/dL POC Hgb 6.5 L* (12.0-16.0) g/dl Hct (37-47) % POC Hct 19 L* (37-47) % MCV (80-100) fL MCH (25-34) pg MCHC (32-36) g/dL RDW Std Deviation (36.4-46.3) fL RDW Coeff of Donald (11.5-14.5) % Plt Count (130-400) K/uL MPV (7.4-10.4) fL Immature Gran % (Auto) % Neut % (Auto) % Lymph % (Auto) % [place] % (Auto) % Eos % (Auto) % Baso % (Auto) % Immature Gran # (Auto) (0.00-0.02) K/uL Neut # (Auto) (1.4-6.5) K/uL Lymph # (Auto) (1.2-3.4) K/uL [place] # (Auto) (0.11-0.59) K/uL Eos # (Auto) (0-0.5) K/uL Baso # (Auto) (0-0.2) K/uL Hypochromasia Anisocytosis Microcytosis Target Cells Acanthocytes (Spur) PT 42.9 H (9.0-12.0) Seconds INR 4.4 H (0.9-1.1) APTT 39.9 H (21.0-31.0) Seconds PTT Ratio 1.4 POC Sodium 138 (135-144) mmol/L Sodium 139 (136-145) mmol/L POC Potassium 4.4 (3.3-5.0) mmol/L Potassium 4.4 D (3.5-5.1) mmol/L POC Chloride 99 L (101-112) mmol/L Chloride 105 (98-107) mmol/L Carbon Dioxide 28 (21-32) mmol/L POC Total CO2 25 (24-31) mmol/L Anion Gap 7.0 (3-11) POC Anion Gap 20.0 (16-25) mmol/L POC BUN 42 H (7-18) mg/dl BUN 46 H (7-18) mg/dl Creatinine 0.92 (0.6-1.2) mg/dl POC Creatinine 0.8 (0.6-1.3) mg/dl Est Cr Clr Drug Dosing 67.6 ml/min Est GFR ( Amer) 71.6 Est GFR (Non-Af Amer) 61.8 BUN/Creatinine Ratio 50.5 H (10-20) Glucose 146 H (70-99) mg/dl POC Glucose (other) 147 H (70-99) mg/dl Calcium 8.6 (8.5-10.1) mg/dl POC Ioniz Calcium Crys 1.22 (1.12-1.32) mmol/l Total Bilirubin 0.3 (0.2-1) mg/dl AST 27 (15-37) U/L ALT 25 (12-78) U/L Alkaline Phosphatase 93 (45-117) U/L Total Protein 6.0 L (6.4-8.2) gm/dl Albumin 2.7 L (3.4-5.0) gm/dl Globulin 3.3 (2.5-4.0) gm/dl Albumin/Globulin Ratio 0.8 L (0.9-2) POC Stool Occult Blood (Negative) Crossmatch ECG Data Attestation: I personally reviewed and interpreted this ECG as follows: Indication: + weakness Rate (beats per minute): 82 Rhythm: + atrial fibrillation ECG Intervals/blocks: + Normal QT-c (483) ECG [place]: + Normal ECG ST segments: no ST depression and no ST elevation ECG Findings: + Q waves (Septal) Comparison ECG Date: from (04/12/2020) Change: no significant change MDM Narrative This is a 74-year-old female who presents emergency department complaining of melena as well as weakness. The patient had a recent hospitalization for GI bleed and is on Coumadin. Her INR was found to be elevated for. I did discuss the case with Dr. Latricia baldwin who asked that the patient be given IV vitamin K. I then also discussed the patient with gastroenterology who felt that we could keep the patient here. She was subsequently placed on a Protonix bolus and drip. Patient was given 2 units of packed red blood cells. Blood consent was signed and was placed on the chart. I did discuss the case with the hospitalist service who did agree to admit the patient. Patient was seen and evaluated as above in room B6. Review was performed of nursing notes and vital signs. I did review pertinent previous visits and patien t history. After obtaining a thorough history and physical examination the above work up was performed. An order was placed for continuous cardiac monitoring. The monitor shows a rate of 71 with Afib rhythm. The patient was evaluated during the global COVID-19 pandemic, and that diagnosis was suspected/considered upon their initial presentation. Their evaluation, treatment and testing was consistent with current guidelines for patients who present with complaints or symptoms that may be related to COVID- 19. Impression & Plan Acute GI bleeding, Anemia, Supratherapeutic INR Discharge Plan Visit Data Chief Complaint: Abnormal Labs/Diagnostic Testing Stated Complaint: LOW BLOOD COUNT,DOC REF ED Provider: Hasmukh Rees Discharge Problem: Acute GI bleeding, Anemia, Supratherapeutic INR Discharge Instructions Interventions: ED Discharge Assessment Last Done: 04/25/20 13:37 Discharge Problem: Anemia Qualifiers: Anemia type: unspecified type Qualified Code(s): D64.9 - Anemia, unspecified
[2020-04-25 11:42] LABS: INR 4.4 (0.9-1.1); Partial Thromboplastin Ratio 1.4; Partial Thromboplastin Time 39.9 Seconds (21.0-31.0); Prothrombin Time 42.9 Seconds (9.0-12.0)
[2020-04-25 11:48] LABS: Albumin Globulin Ratio 0.8 (0.9-2); Albumin Level 2.7 gm/dl (3.4-5.0); BUN Creatinine Ratio 50.5 (10-20); Bilirubin,Total 0.3 mg/dl (0.2-1); Calcium 8.6 mg/dl (8.5-10.1); Creatinine Clr Calc Pharmacy 67.6 ml/min; Est GFR (African American) 71.6; Est GFR (Non-African American) 61.8; Globulin 3.3 gm/dl (2.5-4.0); Potassium 4.4 mmol/L (3.5-5.1)
[2020-04-25] MEDS: PANTOprazole 40 MG in DEXTROSE 5% 100 ML IV SCH ×3 (11:52→22:40)
[2020-04-25 11:54] LABS: Acanthocytes 1+; Anisocytosis Present; Basophils # (auto) 0.08 K/uL (0-0.2); Basophils % (auto) 0.6 %; Eosinophils # (auto) 0.07 K/uL (0-0.5); Eosinophils % (auto) 0.5 %; Hypochromasia Present; Immature Granulocytes # (auto) 0.14 K/uL (0.00-0.02); Immature Granulocytes % (auto) 1.1 %; Lymphocytes # (auto) 3.13 K/uL (1.2-3.4); Lymphocytes % (auto) 23.7 %; Microcytosis Present; Monocytes # (auto) 1.03 K/uL (0.11-0.59); Monocytes % (auto) 7.8 %; Neutrophils # (auto) 8.73 K/uL (1.4-6.5); Neutrophils % (auto) 66.3 %; Target Cells 1+
[2020-04-25] MEDS ORDERED: PHYTONADIONE 5 MG in SODIUM CHLORIDE 0.9% 50 ML IV ONE (12:25)
[2020-04-25] MEDS ORDERED: PHYTONADIONE 5 MG in SODIUM CHLORIDE 0.9% 50 ML IV STA (12:31)
--- NOTE | 2020-04-25 12:34 | History & Physical Report ---
Date of Service April 25, 2020 Assessment & Plan (1) Acute GI bleeding: -Recurrent GI bleed in the setting of coagulopathy on Coumadin therapy -Could be upper GI given melena/digested blood and a history of anastomotic ulcer, however had normal EGD less than 2 weeks ago without bleeding from that site. Could be an AVM in the small bowel. Also had polyps removed from the colon on colonoscopy less than 2 weeks ago which could be bleeding -Consult GI-plan for scope with the EGD and colonoscopy tomorrow-prep ordered, n.p.o. after midnight -Admit to PCU -Hold home metoprolol, metolazone, and watch blood pressure carefully -Hold Coumadin and giving IV vitamin K to reverse INR -As hemoglobin continues to drop several hours after admission, will order stat RBC tagged bleeding scan -If continues to bleed and becomes unstable, consider transfer out for interventional radiology if there is a bleed that is not amenable to of scoping at this facility -Start IV Protonix drip (2) Acute blood loss anemia: Hemoglobin 6.0 on admission down from 8.6 just 5 days prior -Transfused 2 units-her blood has antibodies and has to be shipped in from [place] which is delaying transfusion Fortunately, she is hemodynamically stable at this time Hemoglobin checked again several hours after admission and is down again to 4.6- we will order 3 more units and transfused 2 more after these 2 -May need IV Bumex between units-we will monitor for shortness of breath and watch blood pressures carefully -Secondary to GI bleeding as above-GI work-up as above -Reversing and Coumadin as above -Because of mechanical heart valves, she is in a tenuous situation, but could be off of her Coumadin for at least a couple of days-could start IV heparin if stabilizes while awaiting to restart Coumadin (3) Anastomotic ulcer S/P gastric bypass: As noted above Of note, she has not been taking Protonix at home -Would recommend daily Protonix upon discharge (4) Supratherapeutic INR: As noted above Reversing with vitamin K -Follow INR again in the morning (5) GERD (gastroesophageal reflux disease): As above Needs to be on daily Protonix (6) Chronic diastolic (congestive) heart failure: Is euvolemic at this time -Continue home Bumex given extra volume with PRBC transfusions -Holding home metoprolol as above for significant GI bleeding -Follow daily weights and I's and O's (7) DM II (diabetes mellitus, type II), controlled: He is not on any medication for this at home Check hemoglobin A1c -NovoLog sliding scale for now Accu-Cheks before meals and at bedtime (8) Permanent atrial fibrillation: Is in A. fib here, rate controlled Is on Coumadin which is being held -Holding metoprolol for GI bleeding in case of hypotension -Will watch on telemetry (9) Hypertension: -Holding metoprolol, metolazone as above (10) S/P aortic valve replacement: Mechanical valve Follows with Dr. Lee (11) S/P mitral valve replacement: Mechanical valve, follows with Dr. 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: As above (13) H/O splenectomy: Noted (14) DVT prophylaxis: XIOMARA hose, reversing Coumadin Disposition-admit to PCU Full code History of Present Illness Chief Complaint: Black stools, dyspnea on exertion Primary Care Provider: Fernie Rodriguez MD This patient is a 74-year-old female with a history of mechanical mitral and aortic valve replacements on Coumadin, restrictive pericarditis status post pericardial window, GI bleeding with peptic ulcer disease from gastrojejunal anastomotic ulcer status post gastric bypass, chronic diastolic CHF, permanent atrial fibrillation, hypertension, and history of splenectomy, who presents with recurrent melena and dyspnea on exertion that started this morning. She was admitted to this hospital and discharged on 04/13 also with melena and symptomatic anemia. Her melena had cleared up and her hemoglobin had remained stable at that time. She received 1 outpatient IV iron infusion of the planned 8 treatments and her IV infiltrated. She decided not to pursue the rest of the IV iron treatments. On last admission, she had an EGD which showed no active bleeding with chronic ulceration at the anastomotic junction from her gastric bypass, and had 4 polyps removed on her colonoscopy which were benign. She is reporting some mild periumbilical abdominal pain, no nausea or vomiting. She denies any lightheadedness, denies chest pains. She had outpatient blood work this morning which showed a hemoglobin of 6.1 and her primary care physician's office called her and told her to come to the ER. In the ER, the [id number] hemoglobin confirmed hemoglobin of 6.5. Her INR was also supratherapeutic at 4.4. In discussion with the ER physician in consultation with the anticoagulation specialist, Dr. Owen, decision was made to give her IV vitamin K 5 mg x 1. Blood transfusion was ordered but because of her antibodies, there was a delay in transfusion is asked to be shipped in from [place]. She will be admitted for acute GI bleed and acute blood loss anemia. Allergies Allergy/AdvReac Type Severity Reaction Status Date / Time iron dextran complex Allergy Severe RASH Verified 04/25/20 11:46 choline salicylate Allergy Intermediate TRILISATE-r Verified 04/25/20 11:46 nay magnesium salicylate Allergy Intermediate TRILISATE-r Verified 04/25/20 11:46 nay Trilisate Allergy Intermediate TRILISATE-r Verified 11/05/16 17:37 nay mometasone furoate Allergy Unknown Pt has no Verified 04/25/20 11:46 recollection of this Ferric Oxide Allergy Severe VENOFER Uncoded 04/25/20 11:46 INFUSION-RASH,WEAKNESS,BLEEDING-HOSPITALIZED Home Medications Home Medications Medication Instructions Recorded Confirmed Type metoprolol succinate 200 mg 100 mg PO BID tab 05/31/19 04/25/20 History tablet,extended release 24 hr cholecalciferol (vitamin D3) 2,000 units PO QAM 07/05/19 04/25/20 History [Vitamin D3] cyanocobalamin (vitamin B-12) 1,000 mcg IM MONTHLY 07/05/19 04/25/20 History folic acid 1 mg PO QAM 07/05/19 04/25/20 History multivitamin with iron 1 tab PO QAM 07/05/19 04/25/20 History atorvastatin 10 mg tablet 10 mg PO QAM #90 tab 08/27/19 04/25/20 History bumetanide 1 mg tablet 4 mg PO QAM tab 10/03/19 04/25/20 History calcium carbonate 500 mg calcium 500 mg PO QAM 02/05/20 04/25/20 History (1,250 mg) tablet warfarin [Coumadin] 2.5 - 5 mg PO UD 02/15/20 04/25/20 History metolazone 5 mg tablet 5 mg PO WK PRN tab 04/16/20 04/25/20 History potassium chloride 20 meq PO QAM 04/16/20 04/25/20 History acetaminophen [Tylenol] 325 mg PO QID PRN 04/25/20 04/25/20 History Past Med/Surg History Medical History Acquired claw toe of left foot (Inactive) Acquired claw toe of right foot (Inactive) Anemia ASCVD (arteriosclerotic cardiovascular disease) (Chronic) Atrial fibrillation Callus (Resolved) CHF (congestive heart failure) (Chronic) Chronic diastolic (congestive) heart failure Controlled type 2 diabetes mellitus with diabetic peripheral angiopathy without gangrene Diabetes mellitus with diabetic polyneuropathy (Chronic) Diabetic neuropathy (Chronic) DM II (diabetes mellitus, type II), controlled (Chronic) HTN (hypertension) (Chronic) Hyperlipidemia (Chronic) Hypertension Hypokalemia halfway (current) use 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 Neuropathic ulcer of toe of left foot (Acute) Neuropathic ulcer of toe of right foot (Resolved) Obesity Permanent atrial fibrillation Surgical aftercare, skin or subcutaneous tissue (Resolved) Surgical History H/O hernia repair H/O splenectomy History of esophagogastroduodenoscopy (EGD) History of knee replacement bilateral History of total abdominal hysterectomy Hx of appendectomy Hx of cholecystectomy Hx of tonsillectomy S/P aortic valve replacement (2011) S/P gastric bypass (Resolved) S/P mitral valve replacement (2012) S/P pericardial window creation (2011) Status post panniculectomy Family History Mother Congestive heart failure Diabetes Hypertension Cardiac disorder Brother Diabetes Polycythemia Pharyngeal neoplasm Pulmonary embolism Father Lung cancer Acute myocardial infarction Hypertension Cardiac disorder Myocardial infarction Denies family history of Ovarian cancer Crohn's disease Colorectal cancer Social History Preferred Language: Greek Communication Ability: Effective Visual Impairment: No Limitations Hearing Ability: Normal Mechanical Facilities Technician Required: No Beliefs That Will Affect Care: None marital status: Current Living Situation: Spouse current occupational status: retired Other Information That Helps Us Care for You: No Feels Safe at Home: Yes Safety Concerns: Feels Safe At This Time Smoking Status: Never smoker Do You Dip or Chew Tobacco: No ; Second Hand Exposure: No ; Tobacco Cessation Education Requested by Patient: No Hx Alcohol Use: No Hx Substance Use: No Childhood Exposure to Second-Hand Smoke: No Diet Comment: pt watches diet intake s/p gastric bypass surgery caffeine: Yes during the past year weight has: decreased > 10 lbs Dental Care, Regularly: Yes Physical Activity Frequency: 3-4 Times per Week Seatbelt Use: always Sunscreen Use: Yes Review of Systems Review of Systems: All systems reviewed & are unremarkable except as noted in HPI & below Physical Exam Constitutional: WD/WN, vitals as above + obese Eyes: + conjunctival abnormality (pale) and + anicteric sclerae ENMT: external ear and nose normal, oropharynx normal Neck: trachea midline, no thyromegaly Respiratory: normal respiratory effort, lungs clear to auscultation Cardiovascular: Rate/Rhythm: regular rate and + irregularly irregular Extremities: no edema Chest (Breasts): Chest: normal inspection of chest Gastrointestinal (Abdomen): Inspection/Auscultation: normal bowel sounds; + abdomen abnormal to inspection (Large incisional surgical scars across and in the midline of the abdomen) Percussion/Palpation: + abdomen tender (Mild tenderness in the left periumbilical region without guarding or rebound) Musculoskeletal: Extremities: extremities normal to inspection; no cyanosis and no clubbing Skin: no rashes, warm and dry Neurologic: moves all extremities and awake; no focal motor deficits Psychiatric: A+Ox3, euthymic affect Lymphatic: no lymphedema Results & Data Results & Data ([facility]) Vital Signs (Past 12 Hours) Vital Signs Temp Pulse Pulse Resp BP BP Pulse Ox 04/25/20 11:30 75 18 108/65 100 04/25/20 11:00 76 76 18 117/71 100 04/25/20 10:47 36.7 C 90 20 105/65 100 Laboratory Results 04/25/20 04/25/20 04/25/20 Range/Units 15:52 15:52 11:15 WBC 10.93 H (4.8-10.8) K/uL RBC 2.00 L (4.2-5.4) M/uL Hgb 4.6 L* (12.0-16.0) g/dL POC Hgb 6.5 L* (12.0-16.0) g/dl Hct 15.6 L* (37-47) % POC Hct 19 L* (37-47) % MCV 78.0 L (80-100) fL MCH 23.0 L (25-34) pg MCHC 29.5 L (32-36) g/dL RDW Std Deviation 69.4 H (36.4-46.3) fL RDW Coeff of Donald 25.2 H (11.5-14.5) % Plt Count 357 (130-400) K/uL MPV 8.2 (7.4-10.4) fL Immature Gran % (Auto) % Neut % (Auto) % Lymph % (Auto) % Kendall % (Auto) % Eos % (Auto) % Baso % (Auto) % Immature Gran # (Auto) (0.00-0.02) K/uL Neut # (Auto) (1.4-6.5) K/uL Lymph # (Auto) (1.2-3.4) K/uL Kendall # (Auto) (0.11-0.59) K/uL Eos # (Auto) (0-0.5) K/uL Baso # (Auto) (0-0.2) K/uL Hypochromasia Anisocytosis Microcytosis Target Cells Acanthocytes (Spur) PT 28.7 H (9.0-12.0) Seconds INR 2.9 H (0.9-1.1) APTT (21.0-31.0) Seconds PTT Ratio POC Sodium 138 (135-144) mmol/L Sodium (136-145) mmol/L POC Potassium 4.4 (3.3-5.0) mmol/L Potassium (3.5-5.1) mmol/L POC Chloride 99 L (101-112) mmol/L Chloride (98-107) mmol/L Carbon Dioxide (21-32) mmol/L POC Total CO2 25 (24-31) mmol/L Anion Gap (3-11) POC Anion Gap 20.0 (16-25) mmol/L POC BUN 42 H (7-18) mg/dl BUN (7-18) mg/dl Creatinine (0.6-1.2) mg/dl POC Creatinine 0.8 (0.6-1.3) mg/dl Est Cr Clr Drug Dosing ml/min Est GFR ( Amer) Est GFR (Non-Af Amer) BUN/Creatinine Ratio (10-20) Glucose (70-99) mg/dl POC Glucose (other) 147 H (70-99) mg/dl Calcium (8.5-10.1) mg/dl POC Ioniz Calcium Crys 1.22 (1.12-1.32) mmol/l Total Bilirubin (0.2-1) mg/dl AST (15-37) U/L ALT (12-78) U/L Alkaline Phosphatase (45-117) U/L Total Protein (6.4-8.2) gm/dl Albumin (3.4-5.0) gm/dl Globulin (2.5-4.0) gm/dl Albumin/Globulin Ratio (0.9-2) POC Stool Occult Blood (Negative) Blood Type Antibody Screen Antibody Identification Antibody ID Comment Crossmatch 04/25/20 04/25/20 04/25/20 Range/Units 11:07 11:07 11:07 WBC 13.18 H (4.8-10.8) K/uL RBC 2.61 L (4.2-5.4) M/uL Hgb 6.0 L* (12.0-16.0) g/dL POC Hgb (12.0-16.0) g/dl Hct 20.1 L* (37-47) % POC Hct (37-47) % MCV 77.0 L (80-100) fL MCH 23.0 L (25-34) pg MCHC 29.9 L (32-36) g/dL RDW Std Deviation 68.7 H (36.4-46.3) fL RDW Coeff of Donald 25.3 H (11.5-14.5) % Plt Count 448 H (130-400) K/uL MPV 8.5 (7.4-10.4) fL Immature Gran % (Auto) 1.1 % Neut % (Auto) 66.3 % Lymph % (Auto) 23.7 % Kendall % (Auto) 7.8 % Eos % (Auto) 0.5 % Baso % (Auto) 0.6 % Immature Gran # (Auto) 0.14 H (0.00-0.02) K/uL Neut # (Auto) 8.73 H (1.4-6.5) K/uL Lymph # (Auto) 3.13 (1.2-3.4) K/uL Kendall # (Auto) 1.03 H (0.11-0.59) K/uL Eos # (Auto) 0.07 (0-0.5) K/uL Baso # (Auto) 0.08 (0-0.2) K/uL Hypochromasia Present Anisocytosis Present Microcytosis Present Target Cells 1+ Acanthocytes (Spur) 1+ PT 42.9 H (9.0-12.0) Seconds INR 4.4 H (0.9-1.1) APTT 39.9 H (21.0-31.0) Seconds PTT Ratio 1.4 POC Sodium (135-144) mmol/L Sodium 139 (136-145) mmol/L POC Potassium (3.3-5.0) mmol/L Potassium 4.4 D (3.5-5.1) mmol/L POC Chloride (101-112) mmol/L Chloride 105 (98-107) mmol/L Carbon Dioxide 28 (21-32) mmol/L POC Total CO2 (24-31) mmol/L Anion Gap 7.0 (3-11) POC Anion Gap (16-25) mmol/L POC BUN (7-18) mg/dl BUN 46 H (7-18) mg/dl Creatinine 0.92 (0.6-1.2) mg/dl POC Creatinine (0.6-1.3) mg/dl Est Cr Clr Drug Dosing 67.6 ml/min Est GFR ( Amer) 71.6 Est GFR (Non-Af Amer) 61.8 BUN/Creatinine Ratio 50.5 H (10-20) Glucose 146 H (70-99) mg/dl POC Glucose (other) (70-99) mg/dl Calcium 8.6 (8.5-10.1) mg/dl POC Ioniz Calcium Crys (1.12-1.32) mmol/l Total Bilirubin 0.3 (0.2-1) mg/dl AST 27 (15-37) U/L ALT 25 (12-78) U/L Alkaline Phosphatase 93 (45-117) U/L Total Protein 6.0 L (6.4-8.2) gm/dl Albumin 2.7 L (3.4-5.0) gm/dl Globulin 3.3 (2.5-4.0) gm/dl Albumin/Globulin Ratio 0.8 L (0.9-2) POC Stool Occult Blood (Negative) Blood Type Antibody Screen Antibody Identification Antibody ID Comment Crossmatch 04/25/20 04/25/20 Range/Units 11:07 11:00 WBC (4.8-10.8) K/uL RBC (4.2-5.4) M/uL Hgb (12.0-16.0) g/dL POC Hgb (12.0-16.0) g/dl Hct (37-47) % POC Hct (37-47) % MCV (80-100) fL MCH (25-34) pg MCHC (32-36) g/dL RDW Std Deviation (36.4-46.3) fL RDW Coeff of Donald (11.5-14.5) % Plt Count (130-400) K/uL MPV (7.4-10.4) fL Immature Gran % (Auto) % Neut % (Auto) % Lymph % (Auto) % Kendall % (Auto) % Eos % (Auto) % Baso % (Auto) % Immature Gran # (Auto) (0.00-0.02) K/uL Neut # (Auto) (1.4-6.5) K/uL Lymph # (Auto) (1.2-3.4) K/uL Kendall # (Auto) (0.11-0.59) K/uL Eos # (Auto) (0-0.5) K/uL Baso # (Auto) (0-0.2) K/uL Hypochromasia Anisocytosis Microcytosis Target Cells Acanthocytes (Spur) PT (9.0-12.0) Seconds INR (0.9-1.1) APTT (21.0-31.0) Seconds PTT Ratio POC Sodium (135-144) mmol/L Sodium (136-145) mmol/L POC Potassium (3.3-5.0) mmol/L Potassium (3.5-5.1) mmol/L POC Chloride (101-112) mmol/L Chloride (98-107) mmol/L Carbon Dioxide (21-32) mmol/L POC Total CO2 (24-31) mmol/L Anion Gap (3-11) POC Anion Gap (16-25) mmol/L POC BUN (7-18) mg/dl BUN (7-18) mg/dl Creatinine (0.6-1.2) mg/dl POC Creatinine (0.6-1.3) mg/dl Est Cr Clr Drug Dosing ml/min Est GFR ( Amer) Est GFR (Non-Af Amer) BUN/Creatinine Ratio (10-20) Glucose (70-99) mg/dl POC Glucose (other) (70-99) mg/dl Calcium (8.5-10.1) mg/dl POC Ioniz Calcium Crys (1.12-1.32) mmol/l Total Bilirubin (0.2-1) mg/dl AST (15-37) U/L ALT (12-78) U/L Alkaline Phosphatase (45-117) U/L Total Protein (6.4-8.2) gm/dl Albumin (3.4-5.0) gm/dl Globulin (2.5-4.0) gm/dl Albumin/Globulin Ratio (0.9-2) POC Stool Occult Blood Positive A (Negative) Blood Type O Positive Antibody Screen POSITIVE A Antibody Identification Anti-S Antibody ID Comment Crossmatch See Detail Code Status & VTE Plan Code Status Full code VTE Prophylaxis Plan VTE Prophylaxis will be ordered: Yes PG Care Time/CCT Total # of Minutes Spent Total Time Spent with Patient: Total time spent is greater than 50% in coordination of care (as documented) at patient's floor/unit and/or counseling patient: Coding Level of Care Code 83466 Initial Inpt Care Lvl 3 Diagnoses Acute GI bleeding K92.2 Acute blood loss anemia D62 Anastomotic ulcer S/P gastric bypass K28.9 Supratherapeutic INR R79.1 GERD (gastroesophageal reflux disease) K21.9 Chronic diastolic (congestive) heart failure I50.32 DM II (diabetes mellitus, type II), controlled E11.9 Permanent atrial fibrillation I48.21 Hypertension I10 Hypertension type: essential hypertension S/P aortic valve replacement Z95.2 S/P mitral valve replacement Z95.2 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
[2020-04-25] MEDS ORDERED: ACETAMINOPHEN 1,000 MG/100 ML VIAL IV STA (13:05)
[2020-04-25] MEDS ORDERED: ONDANSETRON INJ 2 MG/ML 2 ML VIAL IV PRN (14:28)
[2020-04-25] MEDS ORDERED: ACETAMINOPHEN 325 MG TAB PO PRN (14:39)
[2020-04-25 16:17] LABS: INR 2.9 (0.9-1.1); Prothrombin Time 28.7 Seconds (9.0-12.0)
--- NOTE | 2020-04-25 16:29 | Gastrointestinal Consultation ---
Date of Consultation April 25, 2020 Assessment & Plan (1) H/O gastric bypass: (2) Acute blood loss anemia: (3) Anastomotic ulcer S/P gastric bypass: Continue Protonix gtt at 8 mg/hour Add Carafate 1 g PO QID AC and HS NPO after midnight EGD tomorrow for further evaluation Colonoscopy tomorrow for further evaluation History of Present Illness Reason for Consultation: Melena, Acute blood loss anemia Attending Physician: Katy Marrufo MD History of Present Illness Eden Wagner is a 74 yo CF with an extensive PMHx including valvular heart disease requiring chronic coumadin therapy, who was last admitted to [facility] in late March, secondary to melena and acute blood loss anemia. During that hospitalization, she underwent an EGD on 04/11 which showed evidence of an anastomotic ulcer from prior Chris-En-Y gastric bypass. She subsequently underwent a colonoscopy on 04/12/2020 and was found to have 4 polyps in the ascending colon removed and treated with endoclip therapy to prevent bleeding, as well as diverticulosis and internal hemorrhoids. She was discharged on 04/13 with an H/H of 7.7/26.6. A repeat H/H on 04/19 showed an H/H of 8.6/29.1. Initially, she had no bleeding, however she developed some melena over the past few days, and had outpatient labwork today which showed an H/H of 6.1 and 20.7. She subsequently presented to the ER, and was noted to have a supratherapeutic INR of 4.4. She was admitted and placed on a protonix gtt. At the time I saw her, she denied any abdominal pain. She states she is feeling better than when she arrived, but still is a, "little lightheaded." She denies any fevers, chills, nausea, vomiting or diarrhea. She has no further complaints. Allergies Allergy/AdvReac Type Severity Reaction Status Date / Time iron dextran complex Allergy Severe RASH Verified 04/25/20 11:46 choline salicylate Allergy Intermediate TRILISATE-r Verified 04/25/20 11:46 nay magnesium salicylate Allergy Intermediate TRILISATE-r Verified 04/25/20 11:46 nay Trilisate Allergy Intermediate TRILISATE-r Verified 11/05/16 17:37 nay mometasone furoate Allergy Unknown Pt has no Verified 04/25/20 11:46 recollection of this Ferric Oxide Allergy Severe VENOFER Uncoded 04/25/20 11:46 INFUSION-RASH,WEAKNESS,BLEEDING-HOSPITALIZED Home Medications Home Medications Medication Instructions Recorded Confirmed Type metoprolol succinate 200 mg 100 mg PO BID tab 05/31/19 04/25/20 History tablet,extended release 24 hr cholecalciferol (vitamin D3) 2,000 units PO QAM 07/05/19 04/25/20 History [Vitamin D3] cyanocobalamin (vitamin B-12) 1,000 mcg IM MONTHLY 07/05/19 04/25/20 History folic acid 1 mg PO QAM 07/05/19 04/25/20 History multivitamin with iron 1 tab PO QAM 07/05/19 04/25/20 History atorvastatin 10 mg tablet 10 mg PO QAM #90 tab 08/27/19 04/25/20 History bumetanide 1 mg tablet 4 mg PO QAM tab 10/03/19 04/25/20 History calcium carbonate 500 mg calcium 500 mg PO QAM 02/05/20 04/25/20 History (1,250 mg) tablet warfarin [Coumadin] 2.5 - 5 mg PO UD 02/15/20 04/25/20 History metolazone 5 mg tablet 5 mg PO WK PRN tab 04/16/20 04/25/20 History potassium chloride 20 meq PO QAM 04/16/20 04/25/20 History acetaminophen [Tylenol] 325 mg PO QID PRN 04/25/20 04/25/20 History Patient History Medical History Acquired claw toe of left foot (Inactive) Acquired claw toe of right foot (Inactive) Anemia ASCVD (arteriosclerotic cardiovascular disease) (Chronic) Atrial fibrillation Callus (Resolved) CHF (congestive heart failure) (Chronic) Controlled type 2 diabetes mellitus with diabetic peripheral angiopathy without gangrene Diabetes mellitus with diabetic polyneuropathy (Chronic) Diabetic neuropathy (Chronic) DM II (diabetes mellitus, type II), controlled (Chronic) HTN (hypertension) (Chronic) Hyperkalemia Hyperlipidemia (Chronic) Hypertension Hypokalemia halfway (current) use 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 Neuropathic ulcer of toe of left foot (Acute) Neuropathic ulcer of toe of right foot (Resolved) Obesity Permanent atrial fibrillation Surgical aftercare, skin or subcutaneous tissue (Resolved) Surgical History H/O hernia repair H/O splenectomy History of esophagogastroduodenoscopy (EGD) History of knee replacement bilateral History of total abdominal hysterectomy Hx of appendectomy Hx of cholecystectomy Hx of tonsillectomy S/P aortic valve replacement (2011) S/P gastric bypass (Resolved) S/P mitral valve replacement (2012) S/P pericardial window creation (2012) Status post panniculectomy Family History Mother Congestive heart failure Diabetes Hypertension Cardiac disorder Brother Diabetes Polycythemia Pharyngeal neoplasm Pulmonary embolism Father Lung cancer Acute myocardial infarction Hypertension Cardiac disorder Myocardial infarction Denies family history of Ovarian cancer Crohn's disease Colorectal cancer Social History Preferred Language: Malaysian Communication Ability: Effective Visual Impairment: No Limitations Hearing Ability: Normal Senior Qualitative Researcher Required: No Beliefs That Will Affect Care: None marital status: Current Living Situation: Spouse current occupational status: retired Other Information That Helps Us Care for You: No Feels Safe at Home: Yes Safety Concerns: Feels Safe At This Time Smoking Status: Never smoker Do You Dip or Chew Tobacco: No ; Second Hand Exposure: No ; Tobacco Cessation Education Requested by Patient: No Hx Alcohol Use: No Hx Substance Use: No Childhood Exposure to Second-Hand Smoke: No Diet Comment: pt watches diet intake s/p gastric bypass surgery caffeine: Yes during the past year weight has: decreased > 10 lbs Dental Care, Regularly: Yes Physical Activity Frequency: 3-4 Times per Week Seatbelt Use: always Sunscreen Use: Yes Review of Systems Review of Systems: All systems reviewed & are unremarkable except as noted in HPI & below Physical Exam Constitutional: WD/WN, vitals as above Eyes: PERRL, conjunctivae normal, anicteric sclerae ENMT: external ear and nose normal, oropharynx normal Neck: trachea midline, no thyromegaly Respiratory: normal respiratory effort, lungs clear to auscultation Cardiovascular: Rate/Rhythm: + irregularly irregular Gastrointestinal (Abdomen): normal bowel sounds, soft, nontender, no hepatosplenomegaly Skin: no rashes, warm and dry Psychiatric: A+Ox3, euthymic affect Results & Data ([facility]) Vital Signs (Past 12 Hours) Vital Signs Temp Pulse Pulse Resp BP BP Pulse Ox 04/25/20 14:31 36.8 C 88 18 114/71 100 04/25/20 14:28 36.8 C 88 18 114/71 100 04/25/20 13:37 36.9 C 71 18 120/59 L 100 04/25/20 13:30 71 74 27 H 120/59 L 120/59 L 100 04/25/20 13:15 74 17 100 04/25/20 13:00 73 74 18 118/66 118/66 100 04/25/20 12:45 78 21 100 04/25/20 12:30 75 73 17 117/58 L 117/58 L 100 04/25/20 12:15 78 19 100 04/25/20 12:00 70 72 16 107/65 107/65 100 04/25/20 11:45 70 15 100 04/25/20 11:30 87 75 23 108/65 108/65 100 04/25/20 11:15 82 20 100 04/25/20 11:08 81 22 117/71 100 04/25/20 11:00 84 76 25 H 117/71 100 04/25/20 10:47 36.7 C 90 20 105/65 100 Pulse Ox 04/25/20 14:31 04/25/20 14:28 100 04/25/20 13:37 04/25/20 13:30 04/25/20 13:15 04/25/20 13:00 04/25/20 12:45 04/25/20 12:30 04/25/20 12:15 04/25/20 12:00 04/25/20 11:45 04/25/20 11:30 04/25/20 11:15 04/25/20 11:08 04/25/20 11:00 04/25/20 10:47 PG Care Time/CCT Total # of Minutes Spent Total Time Spent with Patient: Total time spent is greater than 50% in coordination of care (as documented) at patient's floor/unit and/or counseling patient: Coding Diagnoses H/O gastric bypass Z98.84 Acute blood loss anemia D62 Anastomotic ulcer S/P gastric bypass K28.9
[2020-04-25] MEDS ORDERED: bisacodyL 5 MG TABEC PO ONE (16:40)
[2020-04-25 16:44] LABS: Hematocrit (blood only) 15.6 % (37-47); Hemoglobin 4.6 g/dL (12.0-16.0); Mean Corpuscular Hgb Conc 29.5 g/dL (32-36); Mean Platelet Volume 8.2 fL (7.4-10.4); Platelet Count 357 K/uL (130-400); RDW Coefficient of Variation 25.2 % (11.5-14.5); RDW Standard Deviation 69.4 fL (36.4-46.3); White Blood Count 10.93 K/uL (4.8-10.8)
--- NOTE | 2020-04-25 17:03 | Electrocardiogram Report ---
Test Reason : Blood Pressure : / mmHG Vent. Rate : 082 BPM Atrial Rate : 079 BPM P-R Int : 000 ms QRS Dur : 084 ms QT Int : 414 ms P-R-T Axes : 000 -03 026 degrees QTc Int : 483 ms Atrial fibrillation Possible Anteroseptal infarct (cited on or before 11-APR-2020) Abnormal ECG When compared with ECG of 12-APR-2020 06:25, T wave amplitude has increased in Lateral leads Confirmed by Bird Solorio ([id number]) on 04/25/2020 5:03:28 PM Referred By: Fernie Rodriguez Confirmed By:Bird Solorio
[2020-04-25] MEDS ORDERED: PHYTONADIONE 2.5 MG in SODIUM CHLORIDE 0.9% 50 ML IV SCH (17:15)
[2020-04-25] MEDS ORDERED: GLUCAGON FOR INJ 1 MG VIAL SQ PRN (17:24)
[2020-04-25] MEDS ORDERED: CARBOHYDRATES FOR HYPOGLYCEMIA PO PRN (17:24)
[2020-04-25] MEDS ORDERED: DEXTROSE 50% 50 ML SYRINGE IV PRN (17:24)
[2020-04-25] MEDS ORDERED: GLUCOSE 10 TABS/TUBE PO PRN (17:24)
[2020-04-25] MEDS ORDERED: GLUCOSE 40% GEL 15 GM TUBE PO PRN (17:24)
[2020-04-25] MEDS ORDERED: POLYETHYLENE (MIRALAX) 17 GM PACK PO ONE (21:00)
[2020-04-25] MEDS ORDERED: METOPROLOL SUCC 50MG EXT REL TAB PO SCH (21:00)
[2020-04-25] MEDS: INSULIN ASPART 100 UNITS/ML 3 ML PEN SC SCH (22:42)
[2020-04-25] MEDS: SUCRALFATE 1 GM/10 ML UDC PO SCH (22:48)
[2020-04-26 02:42] LABS: Hematocrit (blood only) 23.6 % (37-47); Hemoglobin 7.3 g/dL (12.0-16.0); Mean Corpuscular Hemoglobin 25.3 pg (25-34); Mean Corpuscular Hgb Conc 30.9 g/dL (32-36); Mean Corpuscular Volume 81.7 fL (80-100); Mean Platelet Volume 8.3 fL (7.4-10.4); Platelet Count 326 K/uL (130-400); RDW Coefficient of Variation 22.3 % (11.5-14.5); Red Blood Count 2.89 M/uL (4.2-5.4); White Blood Count 10.51 K/uL (4.8-10.8)
[2020-04-26 02:53] LABS: INR 1.4 (0.9-1.1); Prothrombin Time 14.2 Seconds (9.0-12.0)
[2020-04-26 03:03] LABS: BUN Creatinine Ratio 38.9 (10-20); Creatinine Clr Calc Pharmacy 68.4 ml/min; Est GFR (African American) 72.5; Est GFR (Non-African American) 62.6; Potassium 4.6 mmol/L (3.5-5.1)
[2020-04-26] MEDS: PANTOprazole 40 MG in DEXTROSE 5% 100 ML IV SCH ×2 (03:11→07:45)
[2020-04-26] MEDS: INSULIN ASPART 100 UNITS/ML 3 ML PEN SC SCH ×2 (05:25→12:43)
--- NOTE | 2020-04-26 07:07 | Nuclear Medicine Report ---
NM GI bleeding HISTORY: GI bleeding TECHNIQUE: Immediately following the intravenous administration of 26.1 mCi of technetium 99m UltraTa g, dynamic abdominal imaging was performed for total 90 minutes. COMPARISON STUDY: Abdominal CT 05/05/2019. FINDINGS: Radiotracer seen within the proximal small bowel likely representing the distal duodenum/pr oximal jejunum within the left side the abdomen. Therefore, the study is positive for a GI bleed. IMPRESSION: Positive GI bleed seen within the left side of the abdomen likely within the distal duodenum/proximal jejunum. ACT 112: Negative or not required by law. Electronically signed by: Roverto Aguilar M.D. 04/26/2020 7:06 AM
[2020-04-26] MEDS: SUCRALFATE 1 GM/10 ML UDC PO SCH ×2 (07:46→12:29)
[2020-04-26] MEDS ORDERED: ATORVASTATIN 10 MG TAB PO SCH (09:00)
[2020-04-26] MEDS ORDERED: BUMETANIDE 1 MG TAB PO SCH (09:00)
[2020-04-26] MEDS ORDERED: POTASSIUM CHLORIDE 20 MEQ/15 ML UDC PO SCH (09:00)
[2020-04-26] MEDS ORDERED: FOLIC ACID 1 MG TAB PO SCH (09:00)
[2020-04-26] MEDS ORDERED: CHOLECALCIFEROL 1,000 UNITS 25 MCG TAB PO SCH (09:00)
[2020-04-26] MEDS ORDERED: CALCIUM CARBONATE 1250MG TAB PO SCH (09:00)
--- NOTE | 2020-04-26 09:14 | Gastroenterology Progress Note ---
Date of Service April 26, 2020 Assessment & Plan (1) Anastomotic ulcer S/P gastric bypass: (2) Acute GI bleeding: Proceed with Push Enteroscopy and colonoscopy now Transfuse PRN to maintain H/H around 8/24 If no bleeding source found on these exams, may need referral to tertiary care center for IR Continue current therapy Admission and Anticipated Discharge Date Admission Date: April 25, 2020 Subjective She continues to have melena mixed with BRBPR overnight. She did tolerate the bowel prep overnight. She did receive 3 units of PRBC overnight. She denies any fevers, chills, nausea, vomiting or diarrhea. Her bleeding scan showed evidence of active bleeding in the distal duodenum/proximal jejunum. She overall does feels slightly better today. Review of Systems Review of Systems: All systems reviewed & are unremarkable except as noted in HPI & below Physical Exam Constitutional: WD/WN, vitals as above Respiratory: normal respiratory effort, lungs clear to auscultation Cardiovascular: RRR, no murmur, no edema Gastrointestinal (Abdomen): normal bowel sounds, soft, nontender, no hepatosplenomegaly Results & Data Results & Data ([facility]) Vital Signs (Past 12 Hours) Vital Signs Temp Pulse Pulse Resp BP BP Pulse Ox 04/26/20 08:08 36.8 C 97 H 17 116/70 97 04/26/20 04:34 36.3 C L 94 H 18 105/64 98 04/26/20 01:10 36.6 C 72 18 142/81 H 99 04/26/20 00:25 36.6 C 77 18 133/77 100 04/26/20 00:09 36.6 C 70 20 142/83 H 100 04/25/20 23:52 75 04/25/20 23:44 36.4 C L 69 20 143/81 H 99 04/25/20 23:29 36.6 C 75 18 153/82 H 100 04/25/20 23:14 36.6 C 72 18 146/84 H 100 PG Care Time/CCT Total # of Minutes Spent Total Time Spent with Patient: Total time spent is greater than 50% in coordination of care (as documented) at patient's floor/unit and/or counseling patient: Coding Level of Care Code None Diagnoses Anastomotic ulcer S/P gastric bypass K28.9 Acute GI bleeding K92.2
[2020-04-26] MEDS ORDERED: ONDANSETRON INJ 2 MG/ML 2 ML VIAL IV PRN (09:24)
[2020-04-26] MEDS ORDERED: ATROPINE SULFATE 0.1 MG/ML 10ML SYR IV PRN (09:24)
[2020-04-26] MEDS ORDERED: ePHEDrine sulfate 50 MG/ML AMP IV PRN (09:24)
--- NOTE | 2020-04-26 09:24 | Anesthesiology Consultation ---
Date of Service April 26, 2020 Assessment & Plan ASA ASA4 Proposed Anesthesia Anesthesia Type: MAC Risk / Benefits Reviewed With: PT / POA / Parent / Guardian, Accepts Plan and Informed Consent Obtained History Surgery Operation Date: 04/26/20 16:30 Proposed Procedures p Colonoscopy EGD Dr. Brizuela - Brayan Oseguera Case, DO Height/Weight Height: 5 ft 9 in Weight: 101.1 kg Allergies Allergy/AdvReac Type Severity Reaction Status Date / Time iron dextran complex Allergy Severe RASH Verified 04/25/20 11:46 choline salicylate Allergy Intermediate TRILISATE-r Verified 04/25/20 11:46 nay magnesium salicylate Allergy Intermediate TRILISATE-r Verified 04/25/20 11:46 nay Trilisate Allergy Intermediate TRILISATE-r Verified 11/05/16 17:37 nay mometasone furoate Allergy Unknown Pt has no Verified 04/25/20 11:46 recollection of this Ferric Oxide Allergy Severe VENOFER Uncoded 04/25/20 11:46 INFUSION-RASH,WEAKNESS,BLEEDING-HOSPITALIZED Medications Home Medications Medication Instructions Recorded Confirmed Last Taken metoprolol succinate 200 mg 100 mg PO BID tab 05/31/19 04/25/20 04/25/20 tablet,extended release 24 hr cholecalciferol (vitamin D3) 2,000 units PO QAM 07/05/19 04/25/20 04/25/20 [Vitamin D3] cyanocobalamin (vitamin B-12) 1,000 mcg IM MONTHLY 07/05/19 04/25/20 04/22/20 folic acid 1 mg PO QAM 07/05/19 04/25/20 04/25/20 multivitamin with iron 1 tab PO QAM 07/05/19 04/25/20 04/25/20 atorvastatin 10 mg tablet 10 mg PO QAM #90 tab 08/27/19 04/25/20 04/25/20 bumetanide 1 mg tablet 4 mg PO QAM tab 10/03/19 04/25/20 04/25/20 calcium carbonate 500 mg calcium 500 mg PO QAM 02/05/20 04/25/20 04/25/20 (1,250 mg) tablet warfarin [Coumadin] 2.5 - 5 mg PO UD 02/15/20 04/25/20 04/24/20 metolazone 5 mg tablet 5 mg PO WK PRN tab 04/16/20 04/25/20 Unknown potassium chloride 20 meq PO QAM 04/16/20 04/25/20 04/25/20 acetaminophen [Tylenol] 325 mg PO QID PRN 04/25/20 04/25/20 04/22/20 Active Medications Generic Name Dose Route Start Last Admin Trade Name Mark PRN Reason Stop Dose Admin Pantoprazole Sodium 40 mg/ 100 mls @ 20 mls/hr 04/25/20 11:44 04/26/20 07:45 Dextrose IV 05/25/20 11:43 8 mg/hr Q5H MARCI 20 mls/hr Administration 8 MG/HR Insulin Aspart 0 units 04/25/20 21:00 04/26/20 05:25 Novolog Flexpen SC 05/25/20 20:59 Not Given ACHS MARCI Sucralfate 1 gm 04/25/20 21:00 04/26/20 07:46 Carafate PO 05/25/20 20:59 Not Given ACHS MARCI NPO Date Last Intake of Fluids: 04/26/20 Time Last Intake of Fluids: 00:01 Last Intake of Fluids Comment: water following prep Date Last Intake of Solids: 04/24/20 Past Medical History Medical History Acquired claw toe of left foot (Inactive) Acquired claw toe of right foot (Inactive) Anemia ASCVD (arteriosclerotic cardiovascular disease) (Chronic) Atrial fibrillation Callus (Resolved) CHF (congestive heart failure) (Chronic) Chronic diastolic (congestive) heart failure Controlled type 2 diabetes mellitus with diabetic peripheral angiopathy without gangrene Diabetes mellitus with diabetic polyneuropathy (Chronic) Diabetic neuropathy (Chronic) DM II (diabetes mellitus, type II), controlled (Chronic) HTN (hypertension) (Chronic) Hyperlipidemia (Chronic) Hypertension Hypokalemia custodial (current) use 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 Neuropathic ulcer of toe of left foot (Acute) Neuropathic ulcer of toe of right foot (Resolved) Obesity Permanent atrial fibrillation Surgical aftercare, skin or subcutaneous tissue (Resolved) Exercise / Class Metabolic Activity II 4-5 Yardwork/Stairs/Walk up hill Past Family History Family History Mother Congestive heart failure Diabetes Hypertension Cardiac disorder Brother Diabetes Polycythemia Pharyngeal neoplasm Pulmonary embolism Father Lung cancer Acute myocardial infarction Hypertension Cardiac disorder Myocardial infarction Denies family history of Ovarian cancer Crohn's disease Colorectal cancer Past Surgical History Surgical History H/O hernia repair H/O splenectomy History of esophagogastroduodenoscopy (EGD) History of knee replacement bilateral History of total abdominal hysterectomy Hx of appendectomy Hx of cholecystectomy Hx of tonsillectomy S/P aortic valve replacement (2011) S/P gastric bypass () S/P mitral valve replacement (2011) S/P pericardial window creation (2011) Status post panniculectomy Past Anesthesia History No Hx of Anesthesia Complications and No Family Hx of Anesthesia Complications History of PONV No Hx of Motion Sickness and History of PONV Social History Smoking Status: Never smoker Do You Dip or Chew Tobacco: No Hx Alcohol Use: No Alcohol type: hard liquor alcohol intake frequency: a few times a month Hx Substance Use: No substance use type: does not use Review of Systems denies fever/cough/ colds/ chest pain/ SOB/ ANKIT Constitutional: no fever and no chills Respiratory: no cough and no dyspnea denies ANKIT Cardiovascular: no chest pain and no dyspnea on exertion Physical Exam Vital Signs Last Vital Signs Temp 36.9 C 04/26/20 09:05 Pulse 107 H 04/26/20 09:05 Resp 18 04/26/20 09:05 BP 129/98 04/26/20 09:05 Pulse Ox 99 04/26/20 09:05 ENMT Mouth: + dental bridge; no TMJ abnormality and no dentition abnormality Thyromental Distance: < 3.5 Finger Breadths Mallampati Class: IV Neck neck extension not limited Respiratory normal respiratory effort; no respiratory distress Auscultation: lungs clear to auscultation bilaterally Cardiovascular Rate/Rhythm: regular rate and regular rhythm Neurologic moves all extremities Psychiatric Orientation: alert and oriented x 3 Testing Laboratory Results 04/26/20 02:28 04/26/20 02:28 PT 14.2 Seconds (9.0-12.0) H 04/26/20 02:28 INR 1.4 (0.9-1.1) H 04/26/20 02:28 APTT 39.9 Seconds (21.0-31.0) H 04/25/20 11:07 Blood Type O Positive 04/25/20 11:07 Antibody Screen POSITIVE A 04/25/20 11:07 04/26/20 04/25/20 05:24 22:41 POC Glucose 134 H 137 H
[2020-04-26] MEDS ORDERED: PROPOFOL IV EMULSION 10 MG/ML 20 ML VIAL IV ONE (09:57)
[2020-04-26] MEDS ORDERED: LIDOCAINE HCL 2% 2 ML VIAL/AMP(20MG/ML) INFIL ONE ×2 (09:57→09:58)
[2020-04-26] MEDS ORDERED: ONDANSETRON INJ 2 MG/ML 2 ML VIAL ONE (09:57)
--- NOTE | 2020-04-26 11:12 | Anesthesiology Progress Note ---
Date of Service April 26, 2020 Anesthesia Post Procedure Vital Signs Vital Signs: Temp Pulse Pulse Resp BP BP Pulse Ox 04/26/20 11:09 111 H 18 155/98 H 100 04/26/20 10:52 99 H 18 137/91 100 04/26/20 10:35 104 H 18 128/89 99 04/26/20 09:05 36.9 C 107 H 18 129/98 99 04/26/20 08:08 36.8 C 97 H 17 116/70 97 04/26/20 04:34 36.3 C L 94 H 18 105/64 98 04/26/20 01:10 36.6 C 72 18 142/81 H 99 04/26/20 00:25 36.6 C 77 18 133/77 100 04/26/20 00:09 36.6 C 70 20 142/83 H 100 04/25/20 23:52 75 04/25/20 23:44 36.4 C L 69 20 143/81 H 99 04/25/20 23:29 36.6 C 75 18 153/82 H 100 04/25/20 23:14 36.6 C 72 18 146/84 H 100 04/25/20 21:00 36.7 C 77 18 123/74 100 04/25/20 20:40 36.7 C 76 18 123/64 99 04/25/20 20:10 36.7 C 85 18 121/76 100 04/25/20 19:41 36.7 C 77 18 123/76 100 04/25/20 19:14 36.6 C 74 18 126/77 100 04/25/20 18:30 36.8 C 75 18 110/68 99 04/25/20 18:19 36.6 C 77 18 113/66 100 04/25/20 17:35 36.6 C 81 18 100/72 99 04/25/20 17:34 36.6 C 81 18 100/72 04/25/20 17:05 36.6 C 73 18 99/83 L 04/25/20 16:35 36.6 C 73 18 99/83 L 100 04/25/20 16:32 36.4 C L 77 18 108/68 100 04/25/20 14:31 36.8 C 88 18 114/71 100 04/25/20 14:28 36.8 C 88 18 114/71 100 04/25/20 13:37 36.9 C 71 18 120/59 L 100 04/25/20 13:30 71 74 27 H 120/59 L 120/59 L 100 04/25/20 13:15 74 17 100 04/25/20 13:00 73 74 18 118/66 118/66 100 04/25/20 12:45 78 21 100 04/25/20 12:30 75 73 17 117/58 L 117/58 L 100 04/25/20 12:15 78 19 100 04/25/20 12:00 70 72 16 107/65 107/65 100 04/25/20 11:45 70 15 100 04/25/20 11:30 87 75 23 108/65 108/65 100 04/25/20 11:15 82 20 100 Pulse Ox 04/26/20 11:09 04/26/20 10:52 04/26/20 10:35 04/26/20 09:05 04/26/20 08:08 04/26/20 04:34 04/26/20 01:10 04/26/20 00:25 04/26/20 00:09 04/25/20 23:52 04/25/20 23:44 04/25/20 23:29 04/25/20 23:14 04/25/20 21:00 04/25/20 20:40 04/25/20 20:10 04/25/20 19:41 04/25/20 19:14 04/25/20 18:30 04/25/20 18:19 04/25/20 17:35 04/25/20 17:34 04/25/20 17:05 04/25/20 16:35 04/25/20 16:32 04/25/20 14:31 04/25/20 14:28 100 04/25/20 13:37 04/25/20 13:30 04/25/20 13:15 04/25/20 13:00 04/25/20 12:45 04/25/20 12:30 04/25/20 12:15 04/25/20 12:00 04/25/20 11:45 04/25/20 11:30 04/25/20 11:15 Pain Intensity Generalized: Pain Intensity: 1 Right Shoulder: Pain Intensity: 6 Transfer of Care Handoff Completed per policy Notes Mental Status: alert / awake / arousable and participated in evaluation Patient Amnestic to Procedure: Yes Nausea / Vomiting: adequately controlled Pain: adequately controlled Airway Patency, RR, SpO2: stable & adequate BP & HR: stable & adequate Hydration State: stable & adequate Anesthetic Complications: no major complications apparent and Pt Satisfied with anesthetic care
--- NOTE | 2020-04-26 11:50 | GI REPORT ---
Patient Name: Eden Wagner Procedure Date: 04/26/2020 10:24 AM Date of : 1945 Admit Type: Inpatient Age: 74 Gender: Female Attending MD: rBayan Brizuela DO Procedure: Colonoscopy Providers: Brayan Brizuela DO Referring MD: Fernie Rodriguez Indications: Melena, Acute post hemorrhagic anemia Medicines: Monitored Anesthesia Care Complications: No immediate complications. Estimated Blood Loss: Estimated blood loss: none. Procedure: Pre-Anesthesia Assessment: - Prior to the procedure, a History and Physical was performed, and patient medications and allergies were reviewed. The patient's tolerance of previous anesthesia was also reviewed. The risks and benefits of the procedure and the sedation options and risks were discussed with the patient. All questions were answered, and informed consent was obtained. Prior Anticoagulants: The patient has taken Coumadin (warfarin), last dose was 1 day prior to procedure. ASA Grade Assessment: IV - A patient with severe systemic disease that is a constant threat to life. After reviewing the risks and benefits, the patient was deemed in satisfactory condition to undergo the procedure. After I obtained informed consent, the scope was passed under direct vision. Throughout the procedure, the patient's blood pressure, pulse, and oxygen saturations were monitored continuously. The Colonoscope was introduced through the anus with the intention of advancing to the ileum. The scope was advanced to the sigmoid colon before the procedure was aborted. Medications were given. The colonoscopy was performed with difficulty due to inadequate bowel prep. The patient tolerated the procedure well. The quality of the bowel preparation was unsatisfactory. No anatomical landmarks were photographed. Findings: The perianal and digital rectal examinations were normal. Hematin (altered blood/[id number] material) was found in the rectum and in the sigmoid colon. Impression: - Preparation of the colon was unsatisfactory. - Blood in the rectum and in the sigmoid colon. - No specimens collected. Recommendation: - Transfer patient to another hospital with IR capabilities. - NPO. - Continue present medications. - Discussed case with Dr. Marrufo and Dr. Giovanni Brizuela DO 04/26/2020 11:49:53 AM This report has been signed electronically. Note Initiated On: 04/26/2020 10:24 AM Number of Addenda: 0 I attest to the content of the Intraoperative Record and orders documented therein, exceptions below {[id number]}
--- NOTE | 2020-04-26 11:50 | GI REPORT ---
Patient Name: Eden Wagner Procedure Date: 04/26/2020 9:34 AM Date of : 1945 Admit Type: Inpatient Age: 74 Gender: Female Attending MD: Brayan Brizuela DO Procedure: Small bowel enteroscopy Providers: Brayan Brizuela DO Referring MD: Fernie Rodriguez Indications: Acute post hemorrhagic anemia, Melena Medicines: Monitored Anesthesia Care Complications: No immediate complications. Estimated Blood Loss: Estimated blood loss: none. Procedure: Pre-Anesthesia Assessment: - Prior to the procedure, a History and Physical was performed, and patient medications and allergies were reviewed. The patient's tolerance of previous anesthesia was also reviewed. The risks and benefits of the procedure and the sedation options and risks were discussed with the patient. All questions were answered, and informed consent was obtained. Prior Anticoagulants: The patient has taken Coumadin (warfarin), last dose was 1 day prior to procedure. ASA Grade Assessment: IV - A patient with severe systemic disease that is a constant threat to life. After reviewing the risks and benefits, the patient was deemed in satisfactory condition to undergo the procedure. After obtaining informed consent, the endoscope was passed under direct vision. Throughout the procedure, the patient's blood pressure, pulse, and oxygen saturations were monitored continuously. The Colonoscope was introduced through the mouth and advanced to the afferent and efferent jejunal loop. The small bowel enteroscopy was accomplished without difficulty. The patient tolerated the procedure well. Findings: The examined esophagus was normal. Evidence of a Chris-en-Y gastrojejunostomy was found. The gastrojejunal anastomosis was characterized by ulceration. This was traversed. The jejunojejunal anastomosis was characterized by healthy appearing mucosa. The jejunum was noted to have a large amount of dark blood and an occasional clot, but no obvious source of bleeding was identified. Impression: - Normal esophagus. 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 - No specimens collected. Recommendation: - Transfer patient to another hospital. - NPO. - Continue present medications. - Discussed case with Dr. Marrufo to inform her that patient should be transferred to tertiary care center with IR capabilities. Patient has positive bleeding scan and blood on Push Enteroscopy without identifiable bleeding source. Brayan Brizuela DO 04/26/2020 11:50:14 AM This report has been signed electronically. Note Initiated On: 04/26/2020 9:34 AM Number of Addenda: 0 I attest to the content of the Intraoperative Record and orders documented therein, exceptions below {[id number]}
--- NOTE | 2020-04-26 12:26 | Discharge Summary ---
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 She was admitted to this hospital and discharged on 04/13 also with melena and symptomatic anemia. Her melena had cleared up and her hemoglobin had remained stable at that time. She received 1 outpatient IV iron infusion of the planned 8 treatments and her IV infiltrated. She decided not to pursue the rest of the IV iron treatments. On last admission, she had an EGD which showed no active bleeding with chronic ulceration at the anastomotic junction from her gastric bypass, and had 4 polyps removed on her colonoscopy which were benign. She is reporting some mild periumbilical abdominal pain, no nausea or vomiting. She denies any lightheadedness, denies chest pains. She had outpatient blood work this morning which showed a hemoglobin of 6.1 and her primary care physician's office called her and told her to come to the ER. In the ER, the [id number] hemoglobin confirmed hemoglobin of 6.5. Her INR was also supratherapeutic at 4.4. In discussion with the ER physician in consultation with the anticoagulation specialist, Dr. Owen, decision was made to give her IV vitamin K 5 mg x 1. Blood transfusion was ordered but because of her antibodies, there was a delay in transfusion is asked to be shipped in from [place]. She will be admitted for acute GI bleed and acute blood loss anemia. Principal Diagnosis Pt is very anxious given her current health issues, but otherwise no new concerns. She states her SOB was only with exertion and she has not been OOB. No abd pain. She does have mild nausea, but she states that this happens when she doesn't eat ever since her bypass. No emesis. No diarrhea. Pt denies fever, chest pain, LE pain or swelling. Discharge Exam Constitutional WD/WN, vitals as above Eyes normal visual mathis by confrontation and + anicteric sclerae Neck normal visual inspection and trachea midline Respiratory normal respiratory effort, lungs clear to auscultation Cardiovascular Rate/Rhythm: + irregularly irregular Gastrointestinal (Abdomen) Inspection/Auscultation: abdomen not distended Percussion/Palpation: abdomen soft; abdomen nontender Musculoskeletal Head/Neck/Chest: normocephalic and head atraumatic Skin no rashes, warm and dry Neurologic awake; not confused Speech / Cognition: normal speech Psychiatric A+Ox3, euthymic affect Discharge Data Allergies Allergy/AdvReac Type Severity Reaction Status Date / Time iron dextran complex Allergy Severe RASH Verified 04/25/20 11:46 choline salicylate Allergy Intermediate TRILISATE-r Verified 04/25/20 11:46 nay magnesium salicylate Allergy Intermediate TRILISATE-r Verified 04/25/20 11:46 nay Trilisate Allergy Intermediate TRILISATE-r Verified 11/05/16 17:37 nay mometasone furoate Allergy Unknown Pt has no Verified 04/25/20 11:46 recollection of this Ferric Oxide Allergy Severe VENOFER Uncoded 04/25/20 11:46 INFUSION-RASH,WEAKNESS,BLEEDING-HOSPITALIZED Consultations 04/25/20 11:27 Consult Gastroenterology Stat 04/25/20 11:34 ED Decision to Admit Stat Procedures Performed Operation Date: 04/26/20 16:30 Actual Procedures p Small Bowel Enteroscopy EGD - Brayan Oseguera Case, DO s Colonoscopy - Brayan Oseguera Case, DO Hospital Course (1) Acute GI bleeding: -Recurrent GI bleed in the setting of coagulopathy on Coumadin therapy Hb on initial outpt labs 6.1 on 04/25. There was a delay in PRBC transfusion due to antibodies and need for blood to be transferred from several hours away Repeat Hb pre-transfusion was noted to drop to 4.6 RBC scan on 04/25 noted for bleeding in the distal duodenum/proximal jejunum EGD on 04/26 noted with clotting and bleeding in the jejunum that could not be reached by equipment at [facility]. Transfer recommended for further tx. BPs stable but low normal, holding home BP meds Coumadin reversed with IV vitamin K Protonix drip Pt ultimately received PRBC 3 units Hb /5 AM 7.3 Initially spoke with [facility], however they do not have bed availability at present. Pt accepted to [facility] given ongoing bleeding and risk of rapid decompensation if this situation worsens. Of note, per transferring physicians (both medicine and GI) this facility only requires pre-transfer COVID testing if a pt has sx or known sick contacts. Pt denies recent travel or sick contacts. She has a niece who was tested just over 2 weeks ago for a mild cough, but testing was negative and no longer with cough. Niece does not live with pt and minimal contact. Pt's only COVID like sx on admission is SOB, however this is likely related to her Hb/GIB. Testing not performed prior to d/c. (2) Acute blood loss anemia: As noted above -Because of mechanical heart valves, she is in a tenuous situation, but could be off of her Coumadin for at least a couple of days-could start IV heparin if stabilizes while awaiting to restart Coumadin (3) Anastomotic ulcer S/P gastric bypass: As noted above Of note, she has not been taking Protonix at home -Would recommend daily Protonix upon discharge (4) Supratherapeutic INR: As noted above Reversing with vitamin K -Follow INR again in the morning (5) GERD (gastroesophageal reflux disease): As above Needs to be on daily Protonix (6) Chronic diastolic (congestive) heart failure: Is euvolemic at this time -Continue home Bumex given extra volume with PRBC transfusions -Holding home metoprolol as above for significant GI bleeding -Follow daily weights and I's and O's (7) DM II (diabetes mellitus, type II), controlled: No home medications A1c 5.4 on 04/25 -NovoLog sliding scale for now Accu-Cheks before meals and at bedtime (8) Permanent atrial fibrillation: Is in A. fib, rate controlled at times, although tachycardic at times Is on Coumadin which is being held -Holding metoprolol for GI bleeding in case of hypotension -Will watch on telemetry (9) Hypertension: -Holding metoprolol, metolazone as above (10) S/P aortic valve replacement: Mechanical valve Follows with Dr. Lee (11) S/P mitral valve replacement: Mechanical valve, follows with Dr. 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: As above (13) H/O splenectomy: Noted (14) DVT prophylaxis: XIOMARA perales, reversing Coumadin Total Time Total Time Spent Total Time Spent (In Minutes): >30 Total Time Includes: Examination of the Patient, Discharge Planning, Medication Reconciliation, Communication With Other Providers and Other Discharge Plan Discharge Items Patient Disposition: Transfer Acute Care Hospital Reason For Visit: GI BLEED, ACUTE BLOOD LOSS ANEMIA Discharge Diagnosis: GIB Activity: As commented below Activity Comment: As per d/c at next facility Non-emergency contact: Primary Care Provider Call non-emergency contact if: you have any medication questions and your symptoms worsen Follow-up/Referrals: Fernie Rodriguez MD [Primary Care Provider] - Diet: Nothing by Mouth Addtl Attending Provider Instructions: You are being transferred to a higher level of care Pending Studies at Discharge: Yes Studies:: EGD, c-scope reports Stand-Alone Forms: My [facility] Skilled Items Patient informed of condition?: Yes DNR: No Discharge Level of Care: Other Communicable Disease: No Discharge Prognosis: Other Lines: Peripheral IV Urinary Catheter: No Medications and DC Order Prescriptions: Discontinued metoprolol succinate [Toprol XL] 200 mg tablet extended release 24 hr 100 mg PO BID RF: 0 atorvastatin [Lipitor] 10 mg tablet 10 mg PO QAM Qty: 90 RF: 0 calcium carbonate [Calcium 500] 500 mg calcium (1,250 mg) tablet 500 mg PO QAM RF: 0 metolazone 5 mg tablet 5 mg PO WK PRN (Reason: Edema) RF: 0 bumetanide 1 mg tablet 4 mg PO QAM RF: 0 warfarin [Coumadin] 2.5 mg tablet 2.5 - 5 mg PO UD RF: 0 cyanocobalamin (vitamin B-12) 1,000 mcg/mL solution 1,000 mcg IM MONTHLY RF: 0 folic acid 1 mg tablet 1 mg PO QAM RF: 0 multivitamin with iron tablet 1 tab PO QAM RF: 0 cholecalciferol (vitamin D3) [Vitamin D3] 2,000 unit capsule 2,000 units PO QAM RF: 0 potassium chloride 20 mEq/15 mL liquid 20 meq PO QAM RF: 0 acetaminophen [Tylenol] 325 mg Capsule 325 mg PO QID PRN (Reason: Pain) RF: 0 Discharge Orders: Discharge Order (Routine); Ordered 04/26/20 Ordered By: Rose Davila Admission Data Admit Date/Time: 04/25/20 12:31 Attending Provider: Rose Davila Admit Provider: Katy Marrufo Primary Care Provider: Fernie Rodriguez Other Providers: Brayan Brizuela ; Katy Marrufo Other Interventions: Discharge Summary Assessment (RN) Last Done: 04/26/20 11:13 Coding Level of Care Code D/C Day Management >30 mins Diagnoses Acute GI bleeding K92.2 Acute blood loss anemia D62 Anastomotic ulcer S/P gastric bypass K28.9 Supratherapeutic INR R79.1 GERD (gastroesophageal reflux disease) K21.9 Chronic diastolic (congestive) heart failure I50.32 DM II (diabetes mellitus, type II), controlled E11.9 Permanent atrial fibrillation I48.21 Hypertension I10 Hypertension type: essential hypertension S/P aortic valve replacement Z95.2 S/P mitral valve replacement Z95.2 retirement (current) use 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 Z79.01 H/O splenectomy Z90.81 DVT prophylaxis Z29.9
== END 2020-04-26 15:11 | disposition short-term general hospital (02) | DRG 813 ==
LOC: ED 10:26 → SUATTDRO 12:31 → 2S 12:31

== ENCOUNTER 2021-02-03 23:14 | Observation (INO) ==
[2021-02-03] MEDS ORDERED: ONDANSETRON INJ 2 MG/ML 2 ML VIAL IV STA (23:28)
--- NOTE | 2021-02-03 23:51 | Emergency Department Note ---
Impression & Plan Acute pain of right hip, Knee pain, right, Diffuse arthralgia ED Provider Note INFORMANT: Patient ED PROVIDER(S): Bro Quarles MD CHIEF COMPLAINT: Hip pain PLAN: Disposition: Admitted Condition: Good Outpatient prescription management: none Referral: None MEDICAL DECISION MAKING: Patient presented due to acute hip pain but also noted polyarthralgias. She underwent a work-up. She was treated with IV Dilaudid and Zofran. She did require multiple doses for comfort on top of her tramadol and Percocet she took at home. X-ray imaging of the knee and right hip did not reveal any acute findings. Chronic findings noted. The patient had blood work obtained and this revealed a leukocytosis. This was concerning in light of her splenectomy. She also was found to have moderate elevation of her inflammatory markers, CRP and ESR. Lyme testing was performed. IgM was negative however IgG was positive. Western blot is pending. The patient has no known history of Lyme disease by her accounts. She also had a urinalysis obtained and this did reveal concerning findings as it was a catheterized specimen. She was treated with IV Rocephin 2 g. Fluid bolus and maintenance given. She had blood cultures obtained prior to that. Because of her diffuse pain and difficulty walking in light of her abnormal labs I discussed further management in the hospital. The patient was in agreement. Consultation was made with Dr. Monroe of internal medicine. Patient was evaluated in the ER for further management. Triage Nursing notes reviewed and agree them. Vital Signs: reviewed and remarkable for normal findings initially and then mildly low blood pressure Differential diagnosis: Arthritis, Lyme disease, myalgia and myositis, fracture, subluxation, dislocation, contusion, ligamentous injury, neurovascular, compartment syndrome, rhabdomyolysis, as well as other pathologies. Diagnostics interpreted by me: ECG: Twelve-lead ECG reveals A. fib at 91 bpm. RSR prime pattern present. Inferior and anterior Q waves. No ST elevation. Normal axis. Cardiac Monitoring: Cardiac monitoring ordered by me: The patient was placed on continuous cardiac monitoring and observed. It revealed atrial fibrillation at 77 bpm. Imaging studies: X-ray imaging of the right hip is negative for fracture or dislocation. Chronic changes noted. X-ray imaging of the left knee reveals no evidence of periprosthetic fracture. Degenerative changes noted. Consultation(s): Hospitalist service HPI: The patient is a 75 year old female who presents to the Emergency Room with complaints of right hip pain. This started today and is severe. It is causing her inability to walk. This is nontraumatic. She did not fall. She notes she has been dealing with diffuse arthralgias, mostly in her shoulder, back, and left knee. The patient has used tramadol as well as Percocet for relieving factors. Current pain is rated as 8/10. Pain worse with movement. Pt denies LOC, headache, fevers, chills, diaphoresis, visual changes, neck pain, chest pain, breathing difficulties, nausea, vomiting, abdominal pain, melena, hematochezia, urinary symptoms, numbness, weakness, lymphadenopathy, rash, or other complaints. ROS: See above HPI for pertinent positives & negatives. A total of 10 systems reviewed and were otherwise negative. PAST MEDICAL HISTORY:See Below , anticoagulated, A. fib, spinal stenosis, diabetes PAST SURGICAL HISTORY:See Below, bilateral total knee replacement, mitral valve replacement FAMILY HISTORY:See Below SOCIAL HISTORY:See Below, retired HOME MEDICATIONS:See Below ALLERGIES:See Below VITALS:See Below PHYSICAL EXAMINATION: GENERAL: Awake, alert, very uncomfortable-appearing, in moderate distress HENT: Normocephalic, atraumatic. Oropharynx unremarkable. EYES: Normal conjunctiva. Sclera non-icteric. NECK: Inspection normal. Non-tender. Supple. No nuchal rigidity. FROM. No masses. RESPIRATORY: Clear to auscultation. No wheezes. No rales. Normal respiratory effort. CARDIAC: Normal rate. Irregular rhythm. No murmurs. No rubs. Extremities warm and well perfused. Pulses equal, specifically great pulses in the bilateral lower extremities with good cap refill. No JVD. GI: Soft, non-distended. No tenderness to palpation. No rebound or guarding. No masses. RECTAL: Deferred. MUSCULOSKELETAL: Atraumatic. Chest examination reveals no tenderness. The back is symmetrical on inspection without obvious abnormality. There is no CVA tenderness to palpation. No joint edema. LOWER EXTREMITIES: Calves are equal size bilaterally and non-tender. There is moderate left knee joint tenderness to palpation without obvious visible abnormality. Healed surgical scar present. There is diffuse tenderness to palpation of the right thigh and hip with limited range of motion. No edema. No discoloration. NEURO: Normal sensorium. No sensory or motor deficits noted. SKIN: No rash or jaundice noted. 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 Mitral regurgitation Nontoxic multinodular goiter Obesity Obstructive sleep apnea Osteoporosis Pericardial effusion Permanent atrial fibrillation Personal history of diabetic foot ulcer Spinal stenosis, lumbar region with neurogenic claudication 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 Venous insufficiency (chronic) (peripheral) Vitamin B12 deficiency Vitamin D deficiency Surgical History H/O gastric bypass H/O hernia repair H/O splenectomy H/O splenectomy History of esophagogastroduodenoscopy (EGD) History of knee replacement bilateral History of total abdominal hysterectomy Hx of appendectomy Hx of cholecystectomy Hx of tonsillectomy S/P aortic valve replacement (2011) S/P gastric bypass S/P mitral valve replacement (2011) S/P pericardial window creation (2011) Status post panniculectomy Family History Mother Congestive heart failure Diabetes Hypertension Cardiac disorder Brother Diabetes Polycythemia Pharyngeal neoplasm Pulmonary embolism Father Lung cancer Acute myocardial infarction Hypertension Cardiac disorder Myocardial infarction Denies family history of Ovarian cancer Prostate cancer Crohn's disease Breast cancer Colorectal cancer Social History Smoking Status: Never smoker Second Hand Exposure: No; Hx Alcohol Use: Yes Alcohol type: hard liquor Alcohol type Comment: occassional mixed drink Hx Substance Use: No Preferred Language: Pashto Communication Ability: Effective Visual Impairment: No Limitations Hearing Ability: Normal Boiling House Hand Required: No Beliefs That Will Affect Care: None marital status: Current Living Situation: Spouse current occupational status: retired How many Children do You have: 1 Feels Safe at Home: Yes Childhood Exposure to Second-Hand Smoke: No Diet Comment: pt watches diet intake s/p gastric bypass surgery caffeine: Yes during the past year weight has: remained stable Dental Care, Regularly: Yes Physical Activity Frequency: 3-4 Times per Week Seatbelt Use: always Sunscreen Use: Yes Assistive Devices: None Allergies Allergies Allergy/AdvReac Type Severity Reaction Status Date / Time iron dextran complex Allergy Severe RASH Verified 02/03/21 23:27 choline salicylate Allergy Intermediate TRILISATE-r Verified 02/03/21 23:27 nay magnesium salicylate Allergy Intermediate TRILISATE-r Verified 02/03/21 23:27 nay Trilisate Allergy Intermediate TRILISATE-r Verified 11/05/16 17:37 nay mometasone furoate Allergy Unknown Pt has no Verified 02/03/21 23:27 recollection of this Ferric Oxide Allergy Severe VENOFER Uncoded 02/03/21 23:27 INFUSION-RASH,WEAKNESS,BLEEDING-HOSPITALIZED Home Meds Home Medications Medication Instructions Recorded Confirmed folic acid 1 mg tablet 1 mg PO DAILY 05/06/20 02/03/21 multivitamin 1 tab PO DAILY 05/06/20 02/03/21 metoprolol succinate 50 mg 75 mg PO BID tab 07/15/20 02/03/21 tablet,extended release 24 hr warfarin 2.5 mg tablet 2.5 mg PO 6XWK 09/19/20 02/03/21 bumetanide 1 mg PO DIRECTED PRN 01/02/21 02/03/21 cyanocobalamin (vitamin B-12) 1,000 mcg IM Q4WK 01/02/21 02/03/21 metolazone 5 mg PO DIRECTED PRN 01/02/21 02/03/21 warfarin 5 mg PO WK 01/02/21 02/03/21 Previous Rx's Medication Instructions Recorded BD Eclipse 25 gauge x 1" needle #3 ea NS 07/02/20 atorvastatin 10 mg tablet 10 mg PO DAILY #90 tab 07/30/20 potassium chloride 20 mEq/15 mL 60 meq PO DAILY #3800 ml 08/13/20 oral liquid duloxetine 30 mg capsule,delayed 30 mg PO DAILY #30 cap 01/24/21 release gabapentin 100 mg capsule 100 mg PO TID #90 cap 01/24/21 oxycodone-acetaminophen 5 mg-325 1 tab PO Q6H PRN #14 tab 01/27/21 mg tablet Results & Data (ED) Vital Signs Vital Signs - 24 hr 02/03/21 23:22 02/04/21 00:00 02/04/21 00:56 Temperature 37.4 C Temperature Source Oral Pulse Rate 98 H 100 H Pulse Rate [Right Finger] 92 H Pulse Rate from SpO2 Sensor 99 H Respiratory Rate 23 26 H 20 Respiratory Effort / Characteristics Non-Labored Non-Labored Spontaneous Respiratory Depth Normal Normal Respiratory Pattern Regular Blood Pressure 134/83 134/83 Blood Pressure [Right Arm] 118/79 Blood Pressure Mean 100 100 Blood Pressure Mean [Right Arm] 92 Blood Pressure Position Sitting Blood Pressure Position [Right Arm] Lying Pulse Oximetry 98 96 95 Oxygen Delivery Method Room Air Room Air Sepsis Recent Fever Within 48 Hours No Sepsis New/Unexplained Change in Mental Status No Sepsis Action Taken by Nursing No Action Required 02/04/21 02:10 Temperature Temperature Source Pulse Rate Pulse Rate [Right Finger] 77 Pulse Rate from SpO2 Sensor Respiratory Rate 21 Respiratory Effort / Characteristics Non-Labored Spontaneous Respiratory Depth Normal Respiratory Pattern Blood Pressure Blood Pressure [Right Arm] 94/55 L Blood Pressure Mean Blood Pressure Mean [Right Arm] 68 Blood Pressure Position Blood Pressure Position [Right Arm] Lying Pulse Oximetry 95 Oxygen Delivery Method Room Air Sepsis Recent Fever Within 48 Hours Sepsis New/Unexplained Change in Mental Status Sepsis Action Taken by Nursing Laboratory Data Result diagrams: 02/04/21 00:05 02/04/21 00:05 Lab Results 02/04/21 02/04/21 02/04/21 Range/Units 00:05 00:05 00:05 WBC 14.44 H (4.8-10.8) K/uL RBC 4.26 (4.2-5.4) M/uL Hgb 12.1 (12.0-16.0) g/dL Hct 36.9 L (37-47) % MCV 86.6 (80-100) fL MCH 28.4 (25-34) pg MCHC 32.8 (32-36) g/dL RDW Std Deviation 49.9 H (36.4-46.3) fL RDW Coeff of Donald 15.7 H (11.5-14.5) % Plt Count 455 H (130-400) K/uL MPV 9.2 (7.4-10.4) fL Immature Gran % (Auto) 0.6 % Neut % (Auto) 70.7 % Lymph % (Auto) 14.1 % Lyon % (Auto) 12.4 % Eos % (Auto) 1.8 % Baso % (Auto) 0.4 % Neut # (Auto) 10.20 H (1.4-6.5) K/uL Lymph # (Auto) 2.04 (1.2-3.4) K/uL Lyon # (Auto) 1.79 H (0.11-0.59) K/uL Eos # (Auto) 0.26 (0-0.5) K/uL Baso # (Auto) 0.06 (0-0.2) K/uL Immature Gran # (Auto) 0.09 H (0.00-0.02) K/uL ESR (0-21) mm/hr PT (9.0-12.0) Seconds INR (0.9-1.1) Sodium 136 (136-145) mmol/L Potassium 3.6 (3.5-5.1) mmol/L Chloride 101 (98-107) mmol/L Carbon Dioxide 30 (21-32) mmol/L Anion Gap 5.0 (3-11) BUN 22 H (7-18) mg/dl Creatinine 1.03 (0.6-1.2) mg/dl Est Cr Clr Drug Dosing 59.5 ml/min Est GFR ( Amer) 62.0 Est GFR (Non-Af Amer) 53.5 BUN/Creatinine Ratio 21.8 H (10-20) Glucose 134 H (70-99) mg/dl Calcium 9.0 (8.5-10.1) mg/dl Magnesium 1.9 (1.8-2.4) mg/dl Total Bilirubin 1.1 H (0.2-1) mg/dl AST 32 (15-37) U/L ALT 31 (12-78) U/L Alkaline Phosphatase 208 H (45-117) U/L C-Reactive Protein 3.03 H (0-0.29) mg/dl Total Protein 8.4 H (6.4-8.2) gm/dl Albumin 3.3 L (3.4-5.0) gm/dl Globulin 5.1 H (2.5-4.0) gm/dl Albumin/Globulin Ratio 0.6 L (0.9-2) TSH 0.871 (0.300-4.500) uIu/ml Urine Color Urine Appearance (Clear) Urine pH (4.5-7.5) Ur Specific [place] (1.000-1.030) Urine Protein (Negative) Urine Glucose (UA) (Negative) Urine Ketones (Negative) Urine Blood (Negative) Urine Nitrite (Negative) Urine Bilirubin (Negative) Urine Urobilinogen (Negative) Ur Leukocyte Esterase (Negative) Urine WBC (Auto) (0-5) /hpf Urine RBC (Auto) (0-4) /hpf U Hyaline Cast (Auto) (0-5) /lpf U Epithel Cells (Auto) (0-5) /lpf Urine Bacteria (Auto) (Negative) Lyme Disease IgG Ab Positive A (Negative) Lyme Disease IgM Ab Negative (Negative) 02/04/21 02/04/21 02/04/21 Range/Units 00:05 00:05 01:26 WBC (4.8-10.8) K/uL RBC (4.2-5.4) M/uL Hgb (12.0-16.0) g/dL Hct (37-47) % MCV (80-100) fL MCH (25-34) pg MCHC (32-36) g/dL RDW Std Deviation (36.4-46.3) fL RDW Coeff of Donald (11.5-14.5) % Plt Count (130-400) K/uL MPV (7.4-10.4) fL Immature Gran % (Auto) % Neut % (Auto) % Lymph % (Auto) % Lyon % (Auto) % Eos % (Auto) % Baso % (Auto) % Neut # (Auto) (1.4-6.5) K/uL Lymph # (Auto) (1.2-3.4) K/uL Lyon # (Auto) (0.11-0.59) K/uL Eos # (Auto) (0-0.5) K/uL Baso # (Auto) (0-0.2) K/uL Immature Gran # (Auto) (0.00-0.02) K/uL ESR 73 H (0-21) mm/hr PT 23.5 H (9.0-12.0) Seconds INR 2.5 H (0.9-1.1) Sodium (136-145) mmol/L Potassium (3.5-5.1) mmol/L Chloride (98-107) mmol/L Carbon Dioxide (21-32) mmol/L Anion Gap (3-11) BUN (7-18) mg/dl Creatinine (0.6-1.2) mg/dl Est Cr Clr Drug Dosing ml/min Est GFR ( Amer) Est GFR (Non-Af Amer) BUN/Creatinine Ratio (10-20) Glucose (70-99) mg/dl Calcium (8.5-10.1) mg/dl Magnesium (1.8-2.4) mg/dl Total Bilirubin (0.2-1) mg/dl AST (15-37) U/L ALT (12-78) U/L Alkaline Phosphatase (45-117) U/L C-Reactive Protein (0-0.29) mg/dl Total Protein (6.4-8.2) gm/dl Albumin (3.4-5.0) gm/dl Globulin (2.5-4.0) gm/dl Albumin/Globulin Ratio (0.9-2) TSH (0.300-4.500) uIu/ml Urine Color Dark Yellow Urine Appearance Cloudy A (Clear) Urine pH 5.0 (4.5-7.5) Ur Specific [place] 1.017 (1.000-1.030) Urine Protein Negative (Negative) Urine Glucose (UA) Negative (Negative) Urine Ketones Trace H (Negative) Urine Blood Trace H (Negative) Urine Nitrite Negative (Negative) Urine Bilirubin Negative (Negative) Urine Urobilinogen Negative (Negative) Ur Leukocyte Esterase 2+ H (Negative) Urine WBC (Auto) >30 H (0-5) /hpf Urine RBC (Auto) 0-4 (0-4) /hpf U Hyaline Cast (Auto) 5-10 H (0-5) /lpf U Epithel Cells (Auto) >30 H (0-5) /lpf Urine Bacteria (Auto) Negative (Negative) Lyme Disease IgG Ab (Negative) Lyme Disease IgM Ab (Negative) Administered Medications Hydromorphone HCl (Hydromorphone Inj 0.5 Mg/0.5 Ml Syr) 0.5 mg IV Q15M PRN PRN Reason: Pain Stop: 02/17/21 23:27 Last Admin: 02/04/21 00:56 Dose: 0.5 mg Documented by: [id number] Admin: 02/04/21 00:10 Dose: 0.5 mg Documented by: [id number] Discontinued Medications Ceftriaxone Sodium (Rocephin) 2,000 mg in 70 mls @ 140 mls/hr IV NOW STA Stop: 02/04/21 01:46 Last Infusion: 02/04/21 02:07 Dose: 0 mls/hr Documented by: [id number] Admin: 02/04/21 01:39 Dose: 140 mls/hr Documented by: [id number] Ondansetron HCl (Ondansetron Inj 2 Mg/Ml 2 Ml Vial) 4 mg IV NOW STA Stop: 02/03/21 23:29 Last Admin: 02/04/21 00:10 Dose: 4 mg Documented by: [id number] Discharge Plan Visit Data Chief Complaint: Hip Pain Stated Complaint: HIP PAIN/LOWER EXTREMITY PAIN ED Provider: Bro Quarles Discharge Problem: Acute pain of right hip, Knee pain, right, Diffuse arthralgia Forms Stand Alone Forms: [facility] Prescriptions Prescriptions: No Action gabapentin 100 mg capsule 100 mg PO TID Qty: 90 RF: 1 duloxetine [Cymbalta] 30 mg capsule,delayed release(DR/EC) 30 mg PO DAILY Qty: 30 RF: 1 (DME) BD Eclipse 25 gauge x 1" needle See Rx Instructions .ROUTE .MEDSUPPLY Qty: 3 RF: 3 atorvastatin 10 mg tablet 10 mg PO DAILY Qty: 90 RF: 3 warfarin 2.5 mg tablet 2.5 mg PO 6XWK RF: 0 oxycodone-acetaminophen [Percocet] 5-325 mg tablet 1 tab PO Q6H PRN (Reason: pain) Qty: 14 RF: 0 folic acid 1 mg tablet 1 mg PO DAILY RF: 0 multivitamin Tablet 1 tab PO DAILY RF: 0 potassium chloride 20 mEq/15 mL liquid 60 meq PO DAILY Qty: 3800 RF: 2 metoprolol succinate 50 mg tablet extended release 24 hr 75 mg PO BID RF: 0 metolazone 5 mg tablet 5 mg PO DIRECTED PRN (Reason: Weight Gain) RF: 0 cyanocobalamin (vitamin B-12) 1,000 mcg/mL solution 1,000 mcg IM Q4WK RF: 0 warfarin 5 mg tablet 5 mg PO WK RF: 0 bumetanide 1 mg tablet 1 mg PO DIRECTED PRN (Reason: Weight Gain) RF: 0
[2021-02-04] MEDS: HYDROmorphone INJ 0.5 MG/0.5 ML SYR IV PRN ×2 (00:10→00:56)
[2021-02-04 00:18] LABS: Basophils # (auto) 0.06 K/uL (0-0.2); Basophils % (auto) 0.4 %; Eosinophils # (auto) 0.26 K/uL (0-0.5); Eosinophils % (auto) 1.8 %; Hematocrit (blood only) 36.9 % (37-47); Hemoglobin 12.1 g/dL (12.0-16.0); Immature Granulocytes # (auto) 0.09 K/uL (0.00-0.02); Immature Granulocytes % (auto) 0.6 %; Lymphocytes # (auto) 2.04 K/uL (1.2-3.4); Lymphocytes % (auto) 14.1 %; Mean Corpuscular Hemoglobin 28.4 pg (25-34); Mean Corpuscular Hgb Conc 32.8 g/dL (32-36); Mean Corpuscular Volume 86.6 fL (80-100); Mean Platelet Volume 9.2 fL (7.4-10.4); Monocytes # (auto) 1.79 K/uL (0.11-0.59); Monocytes % (auto) 12.4 %; Neutrophils % (auto) 70.7 %; Platelet Count 455 K/uL (130-400); RDW Coefficient of Variation 15.7 % (11.5-14.5); RDW Standard Deviation 49.9 fL (36.4-46.3); Red Blood Count 4.26 M/uL (4.2-5.4); White Blood Count 14.44 K/uL (4.8-10.8)
[2021-02-04 00:26] LABS: INR 2.5 (0.9-1.1); Prothrombin Time 23.5 Seconds (9.0-12.0)
[2021-02-04 00:36] LABS: Albumin Level 3.3 gm/dl (3.4-5.0); BUN Creatinine Ratio 21.8 (10-20); Creatinine Clr Calc Pharmacy 59.5 ml/min; Est GFR (Non-African American) 53.5; Magnesium 1.9 mg/dl (1.8-2.4); Potassium 3.6 mmol/L (3.5-5.1)
[2021-02-04 00:47] LABS: Albumin Globulin Ratio 0.6 (0.9-2); Bilirubin,Total 1.1 mg/dl (0.2-1); C Reactive Protein 3.03 mg/dl (0-0.29); Globulin 5.1 gm/dl (2.5-4.0); Thyroid Stimulating Hormone 0.871 uIu/ml (0.300-4.500); Total Protein 8.4 gm/dl (6.4-8.2)
[2021-02-04 01:02] LABS: Lyme Ab IgM w/WB Rflx Negative (Negative)
[2021-02-04 01:13] LABS: Lyme Ab IgG w/WB Rflx Positive (Negative)
[2021-02-04] MEDS ORDERED: cefTRIAXone SODIUM 2,000 MG/70 ML BAG IV STA (01:17)
[2021-02-04 01:35] LABS: Appearance Urine Cloudy (Clear); Bacteria Urine Automated Negative (Negative); Bilirubin Urine Negative (Negative); Blood Urine Trace (Negative); Color Urine Dark Yellow; Epithelial Cell Urine Auto >30 /lpf (0-5); Glucose Urine UA Negative (Negative); Ketones Urine Trace (Negative); Leukocyte Esterase Urine 2+ (Negative); Nitrite Urine Negative (Negative); Protein Urine Negative (Negative); RBC Urine Automated 0-4 /hpf (0-4); Specific Gravity Urine 1.017 (1.000-1.030); Urobilinogen Urine Negative (Negative); WBC Urine Automated >30 /hpf (0-5)
[2021-02-04] MEDS ORDERED: SODIUM CHLORIDE 0.9% 1000ML 500 ML IV ONE (02:45)
[2021-02-04] MEDS ORDERED: SODIUM CHLORIDE 0.9% 1000ML 1,000 ML IV STA (02:45)
--- NOTE | 2021-02-04 04:02 | History & Physical Report ---
Date of Service February 04, 2021 Assessment & Plan (1) Acute pain of right hip: No fracture appreciated on xray. ? if secondary to back pain/injury leading to gait disturbance, left knee pain, right hip pain. She describes radiating pain to her foot at times. No neurologic deficits. Would most likely benefit from the recommended agents, Cymbalta and Gabapentin for neuropathic pain, although her hesitancy is understandable- she does not wish to be restarted on these agents at this time. She denies trauma, fever, chills. -Observation to medical -Tylenol 1000mg po TID scheduled -Voltaren gel -Lidoderm patch -Continue oxycodone PRN -Morphine 2mg IV q 4 hours PRN -Consider CT imaging right hip if no improvement in pain Present on Admission?: Yes (2) Knee pain, left: As above. Suspect initial back injury caused gait disturbance leading to knee, hip, radicular pain -imaging unremarkable, awaiting final read -pain management as above Present on Admission?: Yes (3) Diffuse arthralgia: Lyme IgG positive - western blot confirmatory panel pending -Doxycycline 100mg BID for now -Follow results Present on Admission?: Yes (4) Permanent atrial fibrillation: Rate controlled. Anticoagulated on Coumadin with INR of 2.5 -Continue Coumadin at home dose -Continue Metoprolol 75mg po BID with holding parameters Present on Admission?: Yes (5) Hypertension: BP stable -Continue metoprolol -Continue to monitor Present on Admission?: Yes (6) Chronic diastolic (congestive) heart failure: Patient appears to be slightly dry on exam -Gentle IVF -Can continue home medications, Metoprolol, Metolazone as needed - (not ordered) F/E/N - LR at 80mL/hr x 1 bag, monitor electrolytes, continue PO supplementation, CC/AHA diet as tolerated Ppx - Coumadin Code - Full Code Dispo - Observation to medical Present on Admission?: Yes History of Present Illness Chief Complaint: joint pain Primary Care Provider: Fernie Rodriguez MD Patient is a 75yo female presenting with progressive joint pain. She has history of chronic pain, mostly affecting knees, shoulders, neck and back. She has had worsening back pain for the last month - it began when she was sliding some furniture on a carpet with her and she felt something "snap" in her back. She has had pain in the left knee that has been progressively worsening over the last 2 weeks. Today she had acute pain in her right hip and groin with radiation into her foot. Unable to ambulate due to pain. Also with left breast pain and neck pain today. Longstanding history of spinal stenosis with neurogenic claudication. She was seen by Pain Management clinic on 01/24/21 - was recommended to start Cymbalta and Gabapentin. Patient reports she took these medications for two days and developed some abdominal pain and nausea. She was also a bit leery of taking these medications due to the listed side effects, specifically concerns with balance, confusion and risk for bleeding. She does not wish to take these medications. Patient is concerned about being ablt to go home with her current level of pain and immobility. Er Course: Ceftriaxone, Diludid, Zofran, NSS Allergies Allergy/AdvReac Type Severity Reaction Status Date / Time iron dextran complex Allergy Severe RASH Verified 02/03/21 23:27 choline salicylate Allergy Intermediate TRILISATE-r Verified 02/03/21 23:27 nay magnesium salicylate Allergy Intermediate TRILISATE-r Verified 02/03/21 23:27 nay Trilisate Allergy Intermediate TRILISATE-r Verified 11/05/16 17:37 nay mometasone furoate Allergy Unknown Pt has no Verified 02/03/21 23:27 recollection of this Ferric Oxide Allergy Severe VENOFER Uncoded 02/03/21 23:27 INFUSION-RASH,WEAKNESS,BLEEDING-HOSPITALIZED Home Medications Medication Instructions Recorded Confirmed Type folic acid 1 mg tablet 1 mg PO DAILY 05/06/20 02/03/21 History multivitamin 1 tab PO DAILY 05/06/20 02/03/21 History BD Eclipse 25 gauge x 1" needle #3 ea NS 07/02/20 01/24/21 Rx metoprolol succinate 50 mg 75 mg PO BID tab 07/15/20 02/03/21 History tablet,extended release 24 hr atorvastatin 10 mg tablet 10 mg PO DAILY #90 tab 07/30/20 02/03/21 Rx potassium chloride 20 mEq/15 mL 60 meq PO DAILY #3800 ml 08/13/20 02/03/21 Rx oral liquid warfarin 2.5 mg tablet 2.5 mg PO [id number] 09/19/20 02/03/21 History bumetanide 1 mg PO DIRECTED PRN 02/11/21 03/15/21 History cyanocobalamin (vitamin B-12) 1,000 mcg IM Q4WK 01/02/21 02/03/21 History metolazone 5 mg PO DIRECTED PRN 01/02/21 02/03/21 History warfarin 5 mg PO WK 01/02/21 02/03/21 History duloxetine 30 mg capsule,delayed 30 mg PO DAILY #30 cap 01/24/21 02/03/21 Rx release gabapentin 100 mg capsule 100 mg PO TID #90 cap 01/24/21 02/03/21 Rx oxycodone-acetaminophen 5 mg-325 1 tab PO Q6H PRN #14 tab 01/27/21 02/03/21 Rx mg tablet Past Med/Surg History Medical History (Updated 02/04/21 @ 04:21 by Lynnette Monroe DO) Abnormal CT scan, chest Acute blood loss anemia Anastomotic ulcer S/P gastric bypass ASCVD (arteriosclerotic cardiovascular disease) Carotid stenosis, asymptomatic left Carpal tunnel syndrome Cervical radiculopathy Chronic diastolic (congestive) heart failure Diabetic peripheral neuropathy associated with type 2 diabetes mellitus Elevated alkaline phosphatase level Esophageal candidiasis Eustachian tube dysfunction Hearing loss HTN (hypertension) Hyperlipidemia Hypertension Hypokalemia 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 Mitral regurgitation Nontoxic multinodular goiter Obesity Obstructive sleep apnea Osteoporosis Pericardial effusion Permanent atrial fibrillation Personal history of diabetic foot ulcer Spinal stenosis, lumbar region with neurogenic claudication Severe L4-5 Venous insufficiency (chronic) (peripheral) Vitamin B12 deficiency Vitamin D deficiency Surgical History H/O gastric bypass H/O hernia repair H/O splenectomy H/O splenectomy History of esophagogastroduodenoscopy (EGD) History of knee replacement bilateral History of total abdominal hysterectomy Hx of appendectomy Hx of cholecystectomy Hx of tonsillectomy S/P aortic valve replacement (2011) S/P gastric bypass S/P mitral valve replacement (2011) S/P pericardial window creation (2011) Status post panniculectomy Family History Mother Congestive heart failure Diabetes Hypertension Cardiac disorder Brother Diabetes Polycythemia Pharyngeal neoplasm Pulmonary embolism Father Lung cancer Acute myocardial infarction Hypertension Cardiac disorder Myocardial infarction Denies family history of Ovarian cancer Prostate cancer Crohn's disease Breast cancer Colorectal cancer Social History Smoking Status: Never smoker Second Hand Exposure: No; Hx Alcohol Use: Yes Alcohol type: hard liquor Alcohol type Comment: occassional mixed drink Hx Substance Use: No Preferred Language: Azeri Communication Ability: Effective Visual Impairment: No Limitations Hearing Ability: Normal Director Of Math Required: No Beliefs That Will Affect Care: None marital status: Current Living Situation: Spouse current occupational status: retired How many Children do You have: 1 Other Information That Helps Us Care for You: No Feels Safe at Home: Yes Safety Concerns: Feels Safe At This Time Childhood Exposure to Second-Hand Smoke: No Diet Comment: pt watches diet intake s/p gastric bypass surgery caffeine: Yes during the past year weight has: remained stable Dental Care, Regularly: Yes Physical Activity Frequency: 3-4 Times per Week Seatbelt Use: always Sunscreen Use: Yes Assistive Devices: Denture - Upper, Glasses and Walker Review of Systems Review of Systems: All systems reviewed & are unremarkable except as noted in HPI & below Physical Exam Physical Exam: General: patient resting comfortably, NAD, non-toxic in appearance, AA&O x 4 Skin: warm, dry, intact, no rashes or lesions, well healed surgical scars on knee HEENT: NC/AT, PERRL, EOMI, anicteric sclera, conjunctiva without injection, external ear normal to inspection and nontender, nares patent, dry mucus membranes, dentition intact, no oropharyngeal lesions, neck supple, trachea midline, no LAD, no thyromegaly, no JVD Heart: +S1/S2, irregularly irregular, systolic click Lungs: equal air entry bilaterally, no rales/rhonchi/wheezes Abd: +BS, soft, NT/ND, no masses/organomegaly/ascites Ext: warm, 2+ pulses in UE/LE bilaterally, no clubbing/cyanosis or edema, tenderness with palpation of right hip and left knee Neuro: nonfocal, patient AA&O x 4, speech intact, no facial droop, moving all extremities on command with equal strength 5/5 Results & Data Results & Data ([facility]) Vital Signs (Past 12 Hours) Vital Signs Temp Pulse Pulse Resp BP BP Pulse Ox 02/04/21 02:10 77 21 94/55 L 95 02/04/21 00:56 92 H 20 118/79 95 02/04/21 00:00 100 H 26 H 134/83 96 02/03/21 23:22 37.4 C 98 H 23 134/83 98 Laboratory Results Lab Results 02/04/21 02/04/21 02/04/21 Range/Units 00:05 00:05 00:05 WBC 14.44 H (4.8-10.8) K/uL RBC 4.26 (4.2-5.4) M/uL Hgb 12.1 (12.0-16.0) g/dL Hct 36.9 L (37-47) % MCV 86.6 (80-100) fL MCH 28.4 (25-34) pg MCHC 32.8 (32-36) g/dL RDW Std Deviation 49.9 H (36.4-46.3) fL RDW Coeff of Donald 15.7 H (11.5-14.5) % Plt Count 455 H (130-400) K/uL MPV 9.2 (7.4-10.4) fL Immature Gran % (Auto) 0.6 % Neut % (Auto) 70.7 % Lymph % (Auto) 14.1 % [place] % (Auto) 12.4 % Eos % (Auto) 1.8 % Baso % (Auto) 0.4 % Neut # (Auto) 10.20 H (1.4-6.5) K/uL Lymph # (Auto) 2.04 (1.2-3.4) K/uL [place] # (Auto) 1.79 H (0.11-0.59) K/uL Eos # (Auto) 0.26 (0-0.5) K/uL Baso # (Auto) 0.06 (0-0.2) K/uL Immature Gran # (Auto) 0.09 H (0.00-0.02) K/uL ESR (0-21) mm/hr PT (9.0-12.0) Seconds INR (0.9-1.1) Sodium 136 (136-145) mmol/L Potassium 3.6 (3.5-5.1) mmol/L Chloride 101 (98-107) mmol/L Carbon Dioxide 30 (21-32) mmol/L Anion Gap 5.0 (3-11) BUN 22 H (7-18) mg/dl Creatinine 1.03 (0.6-1.2) mg/dl Est Cr Clr Drug Dosing 59.5 ml/min Est GFR ( Amer) 62.0 Est GFR (Non-Af Amer) 53.5 BUN/Creatinine Ratio 21.8 H (10-20) Glucose 134 H (70-99) mg/dl Calcium 9.0 (8.5-10.1) mg/dl Magnesium 1.9 (1.8-2.4) mg/dl Total Bilirubin 1.1 H (0.2-1) mg/dl AST 32 (15-37) U/L ALT 31 (12-78) U/L Alkaline Phosphatase 208 H (45-117) U/L C-Reactive Protein 3.03 H (0-0.29) mg/dl Total Protein 8.4 H (6.4-8.2) gm/dl Albumin 3.3 L (3.4-5.0) gm/dl Globulin 5.1 H (2.5-4.0) gm/dl Albumin/Globulin Ratio 0.6 L (0.9-2) Procalcitonin (0-0.5) ng/ml TSH 0.871 (0.300-4.500) uIu/ml Urine Color Urine Appearance (Clear) Urine pH (4.5-7.5) Ur Specific [place] (1.000-1.030) Urine Protein (Negative) Urine Glucose (UA) (Negative) Urine Ketones (Negative) Urine Blood (Negative) Urine Nitrite (Negative) Urine Bilirubin (Negative) Urine Urobilinogen (Negative) Ur Leukocyte Esterase (Negative) Urine WBC (Auto) (0-5) /hpf Urine RBC (Auto) (0-4) /hpf U Hyaline Cast (Auto) (0-5) /lpf U Epithel Cells (Auto) (0-5) /lpf Urine Bacteria (Auto) (Negative) Lyme Disease IgG Ab Positive A (Negative) Lyme Disease IgM Ab Negative (Negative) 02/04/21 02/04/21 02/04/21 Range/Units 00:05 00:05 00:05 WBC (4.8-10.8) K/uL RBC (4.2-5.4) M/uL Hgb (12.0-16.0) g/dL Hct (37-47) % MCV (80-100) fL MCH (25-34) pg MCHC (32-36) g/dL RDW Std Deviation (36.4-46.3) fL RDW Coeff of Donald (11.5-14.5) % Plt Count (130-400) K/uL MPV (7.4-10.4) fL Immature Gran % (Auto) % Neut % (Auto) % Lymph % (Auto) % [place] % (Auto) % Eos % (Auto) % Baso % (Auto) % Neut # (Auto) (1.4-6.5) K/uL Lymph # (Auto) (1.2-3.4) K/uL [place] # (Auto) (0.11-0.59) K/uL Eos # (Auto) (0-0.5) K/uL Baso # (Auto) (0-0.2) K/uL Immature Gran # (Auto) (0.00-0.02) K/uL ESR 73 H (0-21) mm/hr PT 23.5 H (9.0-12.0) Seconds INR 2.5 H (0.9-1.1) Sodium (136-145) mmol/L Potassium (3.5-5.1) mmol/L Chloride (98-107) mmol/L Carbon Dioxide (21-32) mmol/L Anion Gap (3-11) BUN (7-18) mg/dl Creatinine (0.6-1.2) mg/dl Est Cr Clr Drug Dosing ml/min Est GFR ( Amer) Est GFR (Non-Af Amer) BUN/Creatinine Ratio (10-20) Glucose (70-99) mg/dl Calcium (8.5-10.1) mg/dl Magnesium (1.8-2.4) mg/dl Total Bilirubin (0.2-1) mg/dl AST (15-37) U/L ALT (12-78) U/L Alkaline Phosphatase (45-117) U/L C-Reactive Protein (0-0.29) mg/dl Total Protein (6.4-8.2) gm/dl Albumin (3.4-5.0) gm/dl Globulin (2.5-4.0) gm/dl Albumin/Globulin Ratio (0.9-2) Procalcitonin < 0.05 (0-0.5) ng/ml TSH (0.300-4.500) uIu/ml Urine Color Urine Appearance (Clear) Urine pH (4.5-7.5) Ur Specific [place] (1.000-1.030) Urine Protein (Negative) Urine Glucose (UA) (Negative) Urine Ketones (Negative) Urine Blood (Negative) Urine Nitrite (Negative) Urine Bilirubin (Negative) Urine Urobilinogen (Negative) Ur Leukocyte Esterase (Negative) Urine WBC (Auto) (0-5) /hpf Urine RBC (Auto) (0-4) /hpf U Hyaline Cast (Auto) (0-5) /lpf U Epithel Cells (Auto) (0-5) /lpf Urine Bacteria (Auto) (Negative) Lyme Disease IgG Ab (Negative) Lyme Disease IgM Ab (Negative) 02/04/21 Range/Units 01:26 WBC (4.8-10.8) K/uL RBC (4.2-5.4) M/uL Hgb (12.0-16.0) g/dL Hct (37-47) % MCV (80-100) fL MCH (25-34) pg MCHC (32-36) g/dL RDW Std Deviation (36.4-46.3) fL RDW Coeff of Donald (11.5-14.5) % Plt Count (130-400) K/uL MPV (7.4-10.4) fL Immature Gran % (Auto) % Neut % (Auto) % Lymph % (Auto) % [place] % (Auto) % Eos % (Auto) % Baso % (Auto) % Neut # (Auto) (1.4-6.5) K/uL Lymph # (Auto) (1.2-3.4) K/uL [place] # (Auto) (0.11-0.59) K/uL Eos # (Auto) (0-0.5) K/uL Baso # (Auto) (0-0.2) K/uL Immature Gran # (Auto) (0.00-0.02) K/uL ESR (0-21) mm/hr PT (9.0-12.0) Seconds INR (0.9-1.1) Sodium (136-145) mmol/L Potassium (3.5-5.1) mmol/L Chloride (98-107) mmol/L Carbon Dioxide (21-32) mmol/L Anion Gap (3-11) BUN (7-18) mg/dl Creatinine (0.6-1.2) mg/dl Est Cr Clr Drug Dosing ml/min Est GFR ( Amer) Est GFR (Non-Af Amer) BUN/Creatinine Ratio (10-20) Glucose (70-99) mg/dl Calcium (8.5-10.1) mg/dl Magnesium (1.8-2.4) mg/dl Total Bilirubin (0.2-1) mg/dl AST (15-37) U/L ALT (12-78) U/L Alkaline Phosphatase (45-117) U/L C-Reactive Protein (0-0.29) mg/dl Total Protein (6.4-8.2) gm/dl Albumin (3.4-5.0) gm/dl Globulin (2.5-4.0) gm/dl Albumin/Globulin Ratio (0.9-2) Procalcitonin (0-0.5) ng/ml TSH (0.300-4.500) uIu/ml Urine Color Dark Yellow Urine Appearance Cloudy A (Clear) Urine pH 5.0 (4.5-7.5) Ur Specific [place] 1.017 (1.000-1.030) Urine Protein Negative (Negative) Urine Glucose (UA) Negative (Negative) Urine Ketones Trace H (Negative) Urine Blood Trace H (Negative) Urine Nitrite Negative (Negative) Urine Bilirubin Negative (Negative) Urine Urobilinogen Negative (Negative) Ur Leukocyte Esterase 2+ H (Negative) Urine WBC (Auto) >30 H (0-5) /hpf Urine RBC (Auto) 0-4 (0-4) /hpf U Hyaline Cast (Auto) 5-10 H (0-5) /lpf U Epithel Cells (Auto) >30 H (0-5) /lpf Urine Bacteria (Auto) Negative (Negative) Lyme Disease IgG Ab (Negative) Lyme Disease IgM Ab (Negative) PG Care Time/CCT Total # of Minutes Spent Total Time Spent with Patient: Total time spent is greater than 50% in coordination of care (as documented) at patient's floor/unit and/or counseling patient: Coding Level of Care Code 14657 OBS Care - Level 3 Diagnoses Acute pain of right hip M25.551 Knee pain, left M25.562 Chronicity: unspecified Diffuse arthralgia M25.50 Permanent atrial fibrillation I48.21 Hypertension I10 Hypertension type: essential hypertension Chronic diastolic (congestive) heart failure I50.32 (1) Hypertension Hypertension type: essential hypertension Qualified Code(s): I10 - Essential (primary) hypertension (2) Knee pain, left Chronicity: unspecified Qualified Code(s): M25.562 - Pain in left knee
[2021-02-04] MEDS ORDERED: LACTATED RINGER'S 1,000 ML IV SCH (05:37)
[2021-02-04] MEDS ORDERED: MoRPHine SULFATE 2 MG/ML CARP IV PRN (05:37)
[2021-02-04] MEDS ORDERED: CARBOHYDRATES FOR HYPOGLYCEMIA PO PRN (05:37)
[2021-02-04] MEDS ORDERED: oxyCODONE HCL IR 5 MG TAB (IMMEDIATE RELEASE) PO PRN (05:37)
[2021-02-04] MEDS ORDERED: GLUCOSE 10 TABS/TUBE PO PRN (05:37)
[2021-02-04] MEDS ORDERED: DEXTROSE 50% 50 ML SYRINGE IV PRN (05:37)
[2021-02-04] MEDS ORDERED: DOCUSATE SODIUM 100 MG CAP PO PRN (05:37)
[2021-02-04] MEDS ORDERED: GLUCAGON FOR INJ 1 MG VIAL SQ PRN (05:37)
[2021-02-04] MEDS ORDERED: GLUCOSE 40% GEL 15 GM TUBE PO PRN (05:37)
[2021-02-04] MEDS: ACETAMINOPHEN 500 MG TAB PO SCH ×3 (06:07→22:06)
[2021-02-04] MEDS: DICLOFENAC SOD 1% GEL 100 GM TUBE EXT SCH ×4 (06:28→22:33)
--- NOTE | 2021-02-04 07:32 | XRay Report ---
XR chest 1V portable HISTORY: right hip pain COMPARISON: 05/24/2020. FINDINGS: No pneumothorax. Stable blunting left lateral costophrenic sulcus. Linear scarlike density left lung base persist. No new focal lung consolidations to suggest pneumonia. No evidence for pulmon don edema. Right hilar prominence, unchanged. Poststernotomy changes and cardiac valve prostheses are again noted. The heart remains mildly enlarged. IMPRESSION: No significant change compared to the prior study. No acute process. ACT 112: Negative or not required by law. Electronically signed by: Roverto Aguilar M.D. 02/04/2021 7:31 AM
--- NOTE | 2021-02-04 07:37 | XRay Report ---
XR knee LT 3V CLINICAL HISTORY: left knee pain COMPARISON STUDY: 04/05/2015. FINDINGS: There is a left total knee arthroplasty. The hardware appears intact. No fracture or disloc ation. The bones are osteopenic. There is a lateral patellar tilt. Diffuse subcutaneous edema within the left lower leg. Moderate knee effusion. This has improved. IMPRESSION: 1. No acute fracture or dislocation within the left knee. 2. Moderate knee effusion which has improved. 3. Diffuse subcutaneous edema. ACT 112: Negative or not required by law. Electronically signed by: Roverto Aguilar M.D. 02/04/2021 7:35 AM
--- NOTE | 2021-02-04 07:40 | XRay Report ---
XR hip RT 2V w pelvis CLINICAL HISTORY: right hip pain COMPARISON STUDY: Pelvis and left hip 12/19/2019. FINDINGS: The bones are osteopenic. No fracture or dislocation within the pelvis or hips. Mild vascul ar calcifications are noted. There is mild osteoarthritis within the bilateral hips. The sacrum appea rs intact. There are surgical clips within the pelvis. IMPRESSION: Mild degenerative changes within the pelvis and hips. No fractures. ACT 112: Negative or not required by law. Electronically signed by: Roverto Aguilar M.D. 02/04/2021 7:39 AM
[2021-02-04] MEDS: POTASSIUM CHLORIDE 20 MEQ/15 ML UDC PO SCH (09:23)
[2021-02-04] MEDS: FOLIC ACID 1 MG TAB PO SCH (09:23)
[2021-02-04] MEDS: LIDOCAINE 5% 1 PATCH TD SCH (09:25)
[2021-02-04] MEDS: methylPREDNISolone 60 MG in SYRINGE 0 ML IV SCH ×3 (09:27→20:37)
[2021-02-04] MEDS: ATORVASTATIN 10 MG TAB PO SCH (09:27)
[2021-02-04] MEDS: METOPROLOL SUCC 25MG EXT REL TAB PO SCH ×2 (09:27→20:38)
[2021-02-04] MEDS: DOXYCYCLINE HYCLATE 100 MG CAP PO SCH ×2 (09:28→20:38)
--- NOTE | 2021-02-04 14:12 | Hospitalist Progress Note ---
Date of Service February 04, 2021 Assessment & Plan (1) Acute pain of right hip: X-ray reveals degenerative changes. Known lumbar stenosis which raises the possibility of lumbar radiculopathy causing current symptoms. Uncertain if Lyme disease or rheumatologic process is also involved. She is now on Solu- Medrol which will definitely help symptomatically. She may have lumbar radiculopathy with right sided sciatica producing current symptoms. No evidence of shingles. She refuses to take Cymbalta or gabapentin. (2) Knee pain, left: Left knee effusion noted on x-ray. May need aspiration for further study. Parenteral steroids for now. Pain control measures. ID consulted to evaluate the possibility of Lyme arthritis. (3) Diffuse arthralgia: Lyme IgG positive - western blot confirmatory panel pending. Doxycycline 100mg BID for now. ID consult requested and pending (4) Permanent atrial fibrillation: Rate controlled. Anticoagulated on Coumadin with INR of 2.5. Continue Coumadin at home dose. Continue Metoprolol 75mg po BID with holding parameters (5) Hypertension: BP stable. Continue metoprolol (6) Chronic diastolic (congestive) heart failure: Stable. No exacerbation. Monitor intake and output. Continue current management DVT Ppx - Coumadin Code - Full Code Dispo -eventual discharge to home Admission and Anticipated Discharge Date Admission Date: February 04, 2021 Subjective Alert and pleasant. Diffuse arthralgias raised the question of acute Lyme infectious process. IgG is positive. She is now on oral doxycycline. Infectious disease consultation requested. She also may have a newly developed rheumatologic autoimmune process. She has known lumbar stenosis and recently had a lumbar spine CT scan done in December. She is not a candidate for MRI scanning due to mechanical heart valves. She is on Coumadin which is therapeutic. Solu-Medrol has been started parenterally. OT and PT assessments requested. Review of Systems Review of Systems: All systems reviewed & are unremarkable except as noted in HPI & below Physical Exam Physical Exam: General-alert and oriented x3, no fevers, no chills HEENT-head atraumatic and normocephalic, TMs intact bilaterally, pupils equal and reactive to light, extraocular muscles intact Neck-no lymphadenopathy or thyromegaly, trachea midline Chest-clear to auscultation percussion. No rales wheezing or rhonchi Cardiac-irregular rhythm. Controlled rate. Metallic valve clicks. Abdomen-normal bowel sounds, nontender, no hepatosplenomegaly Extremities-left knee effusion and tenderness. Limited range of motion left knee and right hip due to discomfort Neuro-cranial nerves II through XII intact, motor and sensory function within normal limits, strength symmetrical , no focal deficits Psych-normal affect, normal mood Results & Data Results & Data ([facility]) Vital Signs (Past 12 Hours) Vital Signs Temp Pulse Pulse Resp BP BP BP 02/04/21 07:44 36.4 C L 68 16 101/64 02/04/21 05:30 36.4 C L 80 18 166/92 H 02/04/21 04:42 74 14 108/61 02/04/21 04:39 73 15 99/66 L 02/04/21 03:37 79 19 119/68 02/04/21 02:10 77 21 94/55 L Pulse Ox 02/04/21 07:44 97 02/04/21 05:30 100 02/04/21 04:42 97 02/04/21 04:39 96 02/04/21 03:37 98 02/04/21 02:10 95 Laboratory Results 02/04/21 00:05 02/04/21 00:05 PG Care Time/CCT Total # of Minutes Spent Total Time Spent with Patient: Total time spent is greater than 50% in coordination of care (as documented) at patient's floor/unit and/or counseling patient: Coding Level of Care Code 81785 Subseq Hosp Care Lvl 3 Diagnoses Acute pain of right hip M25.551 Knee pain, left M25.562 Chronicity: unspecified Diffuse arthralgia M25.50 Permanent atrial fibrillation I48.21 Hypertension I10 Hypertension type: essential hypertension Chronic diastolic (congestive) heart failure I50.32 (1) Knee pain, left Chronicity: unspecified Qualified Code(s): M25.562 - Pain in left knee (2) Hypertension Hypertension type: essential hypertension Qualified Code(s): I10 - Essential (primary) hypertension
[2021-02-04] MEDS: WARFARIN SOD 2.5 MG TAB PO SCH (16:46)
[2021-02-04] MEDS ORDERED: INSULIN ASPART 100 UNITS/ML 3 ML PEN SC ONE (21:30)
[2021-02-05] MEDS: methylPREDNISolone 60 MG in SYRINGE 0 ML IV SCH ×4 (03:56→20:15)
--- NOTE | 2021-02-05 05:46 | Electrocardiogram Report ---
Test Reason : Blood Pressure : / mmHG Vent. Rate : 091 BPM Atrial Rate : 153 BPM P-R Int : 000 ms QRS Dur : 090 ms QT Int : 376 ms P-R-T Axes : 000 -12 013 degrees QTc Int : 462 ms Atrial fibrillation RSR' or QR pattern in V1 suggests right ventricular conduction delay Inferior infarct , age undetermined Possible Anteroseptal infarct Abnormal ECG When compared with ECG of 25-APR-2020 11:11, Criteria for Inferior infarct is now Present Confirmed by Tushar Birch ([id number]) on 02/05/2021 5:46:10 AM Referred By: REFERRED SELF Confirmed By:Tushar Birch
[2021-02-05 06:18] LABS: Hematocrit (blood only) 34.6 % (37-47); Hemoglobin 11.6 g/dL (12.0-16.0); Immature Granulocytes # (auto) 0.04 K/uL (0.00-0.02); Immature Granulocytes % (auto) 0.4 %; Lymphocytes % (auto) 11.5 %; Mean Corpuscular Hemoglobin 28.5 pg (25-34); Mean Corpuscular Hgb Conc 33.5 g/dL (32-36); Mean Platelet Volume 9.6 fL (7.4-10.4); Monocytes # (auto) 0.47 K/uL (0.11-0.59); Monocytes % (auto) 4.5 %; Neutrophils # (auto) 8.73 K/uL (1.4-6.5); Neutrophils % (auto) 83.6 %; Platelet Count 471 K/uL (130-400); RDW Coefficient of Variation 15.4 % (11.5-14.5); RDW Standard Deviation 48.1 fL (36.4-46.3); Red Blood Count 4.07 M/uL (4.2-5.4); White Blood Count 10.44 K/uL (4.8-10.8)
[2021-02-05] MEDS: DICLOFENAC SOD 1% GEL 100 GM TUBE EXT SCH ×4 (06:23→23:14)
[2021-02-05] MEDS: ACETAMINOPHEN 500 MG TAB PO SCH ×4 (06:23→21:25)
[2021-02-05 06:24] LABS: INR 2.4 (0.9-1.1); Prothrombin Time 22.4 Seconds (9.0-12.0)
[2021-02-05 06:46] LABS: Albumin Level 2.7 gm/dl (3.4-5.0); BUN Creatinine Ratio 31.1 (10-20); Bilirubin Direct 0.2 mg/dl (0-0.2); Calcium 9.3 mg/dl (8.5-10.1); Creatinine Clr Calc Pharmacy 58.9 ml/min; Est GFR (African American) 61.3; Est GFR (Non-African American) 52.9; Potassium 4.1 mmol/L (3.5-5.1)
[2021-02-05 06:49] LABS: Bilirubin,Total 0.7 mg/dl (0.2-1); Total Protein 7.4 gm/dl (6.4-8.2)
[2021-02-05] MEDS: LIDOCAINE 5% 1 PATCH TD SCH (07:13)
[2021-02-05] MEDS: DOXYCYCLINE HYCLATE 100 MG CAP PO SCH ×2 (08:18→20:15)
[2021-02-05] MEDS: METOPROLOL SUCC 25MG EXT REL TAB PO SCH ×2 (08:19→20:15)
[2021-02-05] MEDS: FOLIC ACID 1 MG TAB PO SCH (08:19)
[2021-02-05] MEDS: ATORVASTATIN 10 MG TAB PO SCH (08:19)
[2021-02-05] MEDS: POTASSIUM CHLORIDE 20 MEQ/15 ML UDC PO SCH (08:19)
[2021-02-05] MEDS: INSULIN ASPART 100 UNITS/ML 3 ML PEN SC SCH ×4 (08:30→21:21)
--- NOTE | 2021-02-05 10:02 | Consultation ---
Date of Consultation This is a 75-year-old female that we are asked to see in consultation regarding her lower back and right lower extremity pain. Patient has known lower back pain. Several days ago her symptoms changed with diffuse arthralgias affecting both knees which are status post TKAs by Dr. Betanocurt and right hip and right lower extremity pain. It was so severe she had called the ambulance and was subsequently admitted. She was found to be Lyme's positive. She is on doxycycline. Pain is much improved compared to her status prior to admission. She ambulates independently at home. She was taken Percocet, Tylenol, tramadol at home for pain control. This was ineffective. She is also recently seen Dr. Tsai in early January for her chronic complaints. No injections were given. Medication was trialed. She was felt to be a poor candidate for injections. Denies bowel or bladder dysfunction. February 05, 2021 Assessment & Plan (1) Spinal stenosis, lumbar region with neurogenic claudication: Clinical findings, labs and history have been reviewed with Dr. Avendaño. Patient has spondylolisthesis of L4-5 with associated severe spinal stenosis. These are both chronic conditions. She is not acutely a good surgical candidate in light of her Lyme's disease with leukocytosis, history of splenectomy, mechanical valve replacement with associated anticoagulation. It is difficult to differentiate how much of her acute pain is lumbar radiculopathy versus arthralgias associated with Lyme's disease. Nonetheless her case should be best managed at a tertiary care center should she choose to pursue any type of surgical intervention in the future. Once again no acute surgical indications at this point in time. These can be managed as an outpatient at a tertiary care center. All questions were answered in detail. She expressed understanding. She is not interested in pursuing any type of surgical intervention at this time. Supervising Physician Co-Signing Physician Notes Dr. Sergio Avendaño History of Present Illness Attending Physician: Wesly Mars MD Allergies Allergy/AdvReac Type Severity Reaction Status Date / Time iron dextran complex Allergy Severe RASH Verified 02/03/21 23:27 choline salicylate Allergy Intermediate TRILISATE-r Verified 02/03/21 23:27 nay magnesium salicylate Allergy Intermediate TRILISATE-r Verified 02/03/21 23:27 nay Trilisate Allergy Intermediate TRILISATE-r Verified 11/05/16 17:37 nay mometasone furoate Allergy Unknown Pt has no Verified 02/03/21 23:27 recollection of this Ferric Oxide Allergy Severe VENOFER Uncoded 02/03/21 23:27 INFUSION-RASH,WEAKNESS,BLEEDING-HOSPITALIZED Home Medications Medication Instructions Recorded Confirmed Type folic acid 1 mg tablet 1 mg PO DAILY 05/06/20 02/03/21 History multivitamin 1 tab PO DAILY 05/06/20 02/03/21 History BD Eclipse 25 gauge x 1" needle #3 ea NS 07/02/20 01/24/21 Rx metoprolol succinate 50 mg 75 mg PO BID tab 07/15/20 02/03/21 History tablet,extended release 24 hr atorvastatin 10 mg tablet 10 mg PO DAILY #90 tab 07/30/20 02/03/21 Rx potassium chloride 20 mEq/15 mL 60 meq PO DAILY #3800 ml 08/13/20 02/03/21 Rx oral liquid warfarin 2.5 mg tablet 2.5 mg PO 6XWK 09/19/20 02/03/21 History bumetanide 1 mg PO DIRECTED PRN 01/02/21 02/03/21 History cyanocobalamin (vitamin B-12) 1,000 mcg IM Q4WK 01/02/21 02/03/21 History metolazone 5 mg PO DIRECTED PRN 01/02/21 02/03/21 History warfarin 5 mg PO WK 01/02/21 02/03/21 History duloxetine 30 mg capsule,delayed 30 mg PO DAILY #30 cap 01/24/21 02/03/21 Rx release gabapentin 100 mg capsule 100 mg PO TID #90 cap 01/24/21 02/03/21 Rx oxycodone-acetaminophen 5 mg-325 1 tab PO Q6H PRN #14 tab 01/27/21 02/03/21 Rx mg tablet Patient History Medical History Abnormal CT scan, chest Acute blood loss anemia Anastomotic ulcer S/P gastric bypass ASCVD (arteriosclerotic cardiovascular disease) Carotid stenosis, asymptomatic left Carpal tunnel syndrome Cervical radiculopathy Chronic diastolic (congestive) heart failure Diabetic peripheral neuropathy associated with type 2 diabetes mellitus Elevated alkaline phosphatase level Esophageal candidiasis Eustachian tube dysfunction Hearing loss HTN (hypertension) Hyperlipidemia Hypertension Hypokalemia halfway (current) use 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 Mitral regurgitation Nontoxic multinodular goiter Obesity Obstructive sleep apnea Osteoporosis Pericardial effusion Permanent atrial fibrillation Personal history of diabetic foot ulcer Spinal stenosis, lumbar region with neurogenic claudication Severe L4-5 Venous insufficiency (chronic) (peripheral) Vitamin B12 deficiency Vitamin D deficiency Surgical History H/O gastric bypass H/O hernia repair H/O splenectomy H/O splenectomy History of esophagogastroduodenoscopy (EGD) History of knee replacement bilateral History of total abdominal hysterectomy Hx of appendectomy Hx of cholecystectomy Hx of tonsillectomy S/P aortic valve replacement (2011) S/P gastric bypass S/P mitral valve replacement (2011) S/P pericardial window creation (2011) Status post panniculectomy Family History Mother Congestive heart failure Diabetes Hypertension Cardiac disorder Brother Diabetes Polycythemia Pharyngeal neoplasm Pulmonary embolism Father Lung cancer Acute myocardial infarction Hypertension Cardiac disorder Myocardial infarction Denies family history of Ovarian cancer Prostate cancer Crohn's disease Breast cancer Colorectal cancer Social History Smoking Status: Never smoker Second Hand Exposure: No; Hx Alcohol Use: Yes Alcohol type: hard liquor Alcohol type Comment: occassional mixed drink Hx Substance Use: No Preferred Language: Irish Communication Ability: Effective Visual Impairment: No Limitations Hearing Ability: Normal Log Scaler Required: No Beliefs That Will Affect Care: None marital status: Current Living Situation: Spouse current occupational status: retired How many Children do You have: 1 Feels Safe at Home: Yes Childhood Exposure to Second-Hand Smoke: No Diet Comment: pt watches diet intake s/p gastric bypass surgery caffeine: Yes during the past year weight has: remained stable Dental Care, Regularly: Yes Physical Activity Frequency: 3-4 Times per Week Seatbelt Use: always Sunscreen Use: Yes Assistive Devices: Walker Review of Systems Review of Systems: All systems reviewed & are unremarkable except as noted in HPI & below Physical Exam Physical Exam: She sitting in a chair. Alert and oriented x3 no acute distress She has negative tension signs bilaterally. Negative logrolling bilaterally. Motor testing is 5 5 bilateral EHL, dorsiflexion, plantarflexion, quadriceps, hamstrings, hip flexors. She is nontender to palpation to the thoracolumbar spine. Nontender over the sciatic notch regions to palpation. Constitutional: well developed Eyes: normal visual mathis by confrontation ENMT: external ear and nose normal, oropharynx normal Neck: normal visual inspection Respiratory: normal respiratory effort Cardiovascular: Rate/Rhythm: regular rate Chest (Breasts): Chest: normal inspection of chest Gastrointestinal (Abdomen): Inspection/Auscultation: abdomen normal to inspection Musculoskeletal: Extremities: strength 5/5 throughout Skin: no rashes, warm and dry Neurologic: normal touch/pain/proprioception and moves all extremities Psychiatric: A+Ox3, euthymic affect Results & Data ([facility]) Vital Signs (Past 12 Hours) Vital Signs Temp Pulse Resp BP Pulse Ox 02/05/21 07:06 36.4 C L 85 16 124/74 95 02/04/21 22:07 36.3 C L 70 16 132/79 97 Diagnostic Findings [facility] [address], [id number] CT Scan Report Patient: ADRIAN COY Date: 01/02/21MR#: [id number]: [id number] [place] RDAcct ID:[id number]: Date: 1945[facility] Zip: [place], [place] [address]Xkv: [id number]: EDSex: FRoom/Bed:Att Phy:Diagnosis: SEVERE LOW BACK PAINPri Phy: Fernie Rodriguez, OMKARervice Date: 01/02/21Fa Phy:Interpreting Phy: Roc Andrews [facility] Phy: Ordering Phy: Clarice Lowry DO cc: ~ CT lumbar spine wo con CT DOSE: CLINICAL HISTORY: right low back pain TECHNIQUE: Helical images were acquired in transverse plane. Reformatted sagittal and coronal images were reviewed. A dose lowering technique was utilized adhering to the principles of ALARA. CONTRAST: No contrast was administered COMPARISON STUDY: 07/03/2015, conventional x-ray dated 11/27/2020 FINDINGS: L1-2 level: There is a minimal circumferential disc bulge. There is mild spinal canal narrowing. There is no significant foraminal narrowing L2-3 level: There is a mild circumferential disc bulge. There is mild spinal canal narrowing. There is no significant foraminal narrowing L3-4 level: There is a circumferential disc bulge with moderate spinal stenosis. There is no significant foraminal narrowing L4-5 level: There is circumferential disc bulge. There is a grade 1 spondylolisthesis of L4 on L5. There is facet joint arthropathy. There is suspected severe spinal stenosis. L5-S1 level: There is no evidence of significant disc bulge or focal herniation. There is no evidence of spinal or foraminal stenosis. There are chronic appearing L1, L2, and L4 endplate compression deformities. IMPRESSION: 1. Chronic appearing L1, L2, and L4 endplate compression deformities 2. Multilevel degenerative change with multilevel spinal stenosis, most severe at the L4-5 level. ACT 112: Negative or not required by law. Electronically signed by: Roc Andrews M.D. 01/02/2021 12:22 PM Dictated: 01/02/21 1217Transcribed: 01/02/21 121
[2021-02-05] MEDS: POLYETHYLENE (MIRALAX) 17 GM PACK PO SCH (12:17)
--- NOTE | 2021-02-05 14:14 | Hospitalist Progress Note ---
Date of Service February 05, 2021 Assessment & Plan (1) Acute pain of right hip: X-ray reveals degenerative changes. Known lumbar stenosis which raises the possibility of lumbar radiculopathy causing current symptoms. Uncertain if Lyme disease or rheumatologic process is also involved. She is now on Solu- Medrol which has helped symptomatically. She may have lumbar radiculopathy with right sided sciatica producing current symptoms. No evidence of shingles. She refuses to take Cymbalta or gabapentin. (2) Knee pain, left: Left knee effusion noted on x-ray. May need aspiration for further study. Parenteral steroids for now. Pain control measures. ID consulted to evaluate the possibility of Lyme arthritis. (3) Diffuse arthralgia: Lyme IgG positive - western blot confirmatory panel pending. Doxycycline 100mg BID for now. ID consult requested and pending (4) Permanent atrial fibrillation: Rate controlled. Anticoagulated on Coumadin . Therapeutic INR . Continue Coumadin at home dose. Continue Metoprolol 75mg po BID with holding parameters (5) Hypertension: BP stable. Continue metoprolol (6) Chronic diastolic (congestive) heart failure: Stable. No exacerbation. Monitor intake and output. Continue current management DVT Ppx - Coumadin Code - Full Code Dispo -eventual discharge to home. Possibly tomorrow, February 06, on doxycycline and a tapering dose of prednisone Admission and Anticipated Discharge Date Admission Date: February 04, 2021 Subjective Alert and feeling much better with steroid therapy. She also was on doxycycline due to IgG positive Lyme test. Further Lyme testing is pending. Orthopedic spine consultation noted. She is not a surgical candidate. Anticipate discharge home possibly tomorrow on oral doxycycline and continued oral prednisone tapering dose. She will need further outpatient infectious disease follow-up. Review of Systems Review of Systems: All systems reviewed & are unremarkable except as noted in HPI & below Physical Exam Physical Exam: General-alert and oriented x3, no fevers, no chills HEENT-head atraumatic and normocephalic, pupils equal and reactive to light, extraocular muscles intact Neck-no lymphadenopathy or thyromegaly, trachea midline Chest-clear to auscultation percussion. No rales wheezing or rhonchi Cardiac-regular rate and rhythm, normal S1 and S2, no murmurs Abdomen-normal bowel sounds, nontender, no hepatosplenomegaly Extremities-no cyanosis, clubbing, or edema Neuro-cranial nerves II through XII intact, motor and sensory function within normal limits, strength symmetrical , no focal deficits Psych-normal affect, normal mood Results & Data Results & Data ([facility]) Vital Signs (Past 12 Hours) Vital Signs Temp Pulse Resp BP Pulse Ox 02/05/21 10:59 36.6 C 67 16 145/81 H 96 02/05/21 07:06 36.4 C L 85 16 124/74 95 Laboratory Results 02/05/21 05:45 02/05/21 05:45 PG Care Time/CCT Total # of Minutes Spent Total Time Spent with Patient: Total time spent is greater than 50% in coordination of care (as documented) at patient's floor/unit and/or counseling patient: Coding Level of Care Code 27839 Subseq Hosp Care Lvl 3 Diagnoses Acute pain of right hip M25.551 Knee pain, left M25.562 Chronicity: unspecified Diffuse arthralgia M25.50 Permanent atrial fibrillation I48.21 Hypertension I10 Hypertension type: essential hypertension Chronic diastolic (congestive) heart failure I50.32 (1) Knee pain, left Chronicity: unspecified Qualified Code(s): M25.562 - Pain in left knee (2) Hypertension Hypertension type: essential hypertension Qualified Code(s): I10 - Essential (primary) hypertension
[2021-02-05] MEDS ORDERED: WARFARIN SOD 5 MG TAB PO SCH (16:00)
[2021-02-06 01:56] LABS: 18KDIGG Band REACTIVE; 23KDIGG Band NON-REACTIVE; 23KDIGM Band NON-REACTIVE; 28KDIGG Band NON-REACTIVE; 30KDIGG Band NON-REACTIVE; 39KDIGG Band REACTIVE; 39KDIGM Band NON-REACTIVE; 41KDIGG Band REACTIVE; 41KDIGM Band NON-REACTIVE; 45KDIGG Band NON-REACTIVE; 58KDIGG Band NON-REACTIVE; 66KDIGG Band NON-REACTIVE; 93KDIGG Band NON-REACTIVE; Lyme Antibodies, WB IgG NEGATIVE (NEGATIVE); Lyme Antibodies, WB IgM NEGATIVE (NEGATIVE)
[2021-02-06] MEDS: methylPREDNISolone 60 MG in SYRINGE 0 ML IV SCH ×4 (02:56→21:34)
[2021-02-06] MEDS: ACETAMINOPHEN 500 MG TAB PO SCH ×3 (05:51→21:32)
[2021-02-06] MEDS: DICLOFENAC SOD 1% GEL 100 GM TUBE EXT SCH ×3 (05:51→18:30)
[2021-02-06 06:09] LABS: Basophils # (auto) 0.01 K/uL (0-0.2); Basophils % (auto) 0.1 %; Hematocrit (blood only) 34.7 % (37-47); Hemoglobin 11.4 g/dL (12.0-16.0); Immature Granulocytes # (auto) 0.05 K/uL (0.00-0.02); Immature Granulocytes % (auto) 0.4 %; Lymphocytes # (auto) 1.05 K/uL (1.2-3.4); Lymphocytes % (auto) 7.7 %; Mean Corpuscular Hemoglobin 27.9 pg (25-34); Mean Corpuscular Hgb Conc 32.9 g/dL (32-36); Mean Platelet Volume 9.4 fL (7.4-10.4); Monocytes # (auto) 0.56 K/uL (0.11-0.59); Monocytes % (auto) 4.1 %; Neutrophils # (auto) 12.03 K/uL (1.4-6.5); Neutrophils % (auto) 87.7 %; Platelet Count 535 K/uL (130-400); RDW Coefficient of Variation 15.6 % (11.5-14.5); RDW Standard Deviation 48.4 fL (36.4-46.3); Red Blood Count 4.08 M/uL (4.2-5.4)
[2021-02-06 06:40] LABS: BUN Creatinine Ratio 42.9 (10-20); Calcium 9.1 mg/dl (8.5-10.1); Creatinine Clr Calc Pharmacy 61.5 ml/min; Est GFR (African American) 64.3; Est GFR (Non-African American) 55.5; Potassium 4.9 mmol/L (3.5-5.1)
[2021-02-06 06:49] LABS: INR 3.4 (0.9-1.1)
[2021-02-06] MEDS: FOLIC ACID 1 MG TAB PO SCH (09:11)
[2021-02-06] MEDS: ATORVASTATIN 10 MG TAB PO SCH (09:11)
[2021-02-06] MEDS: METOPROLOL SUCC 25MG EXT REL TAB PO SCH ×2 (09:12→21:32)
[2021-02-06] MEDS: LIDOCAINE 5% 1 PATCH TD SCH (09:12)
[2021-02-06] MEDS: POLYETHYLENE (MIRALAX) 17 GM PACK PO SCH (09:14)
[2021-02-06] MEDS: DOXYCYCLINE HYCLATE 100 MG CAP PO SCH ×2 (09:15→21:32)
[2021-02-06] MEDS: POTASSIUM CHLORIDE 20 MEQ/15 ML UDC PO SCH (09:17)
[2021-02-06] MEDS: INSULIN ASPART 100 UNITS/ML 3 ML PEN SC SCH ×4 (09:19→21:41)
[2021-02-06] MEDS ORDERED: PHARMACY GLYCEMIC MGMT CONSULT PRN (12:14)
[2021-02-06] MEDS: metOLazone 5 MG TABLET PO SCH (12:33)
[2021-02-06] MEDS: BUMETANIDE 1 MG TAB PO SCH (12:33)
[2021-02-06] MEDS ORDERED: ETHYL CHLORIDE AER SPR 100 ML CAN EXT ONE (13:42)
--- NOTE | 2021-02-06 13:46 | Pharmacy Report ---
Pharmacy Glycemic Short Note 2 - Date of Service February 06, 2021 - Glycemic Short BSG Results (Last 24 hours): 02/05/21 02/05/21 02/06/21 17:04 20:43 05:38 Glucose 179 H POC Glucose 228 H 239 H 02/06/21 02/06/21 08:30 12:10 Glucose POC Glucose 170 H 196 H OUTPATIENT ANTIDIABETIC REGIMEN: * N/A * A1c = 6.4% on 11/27/20 {pre-diabetes} ASSESSMENT: * 75yo pre-diabetic female with sustained hyperglycemia secondary to RTC steroids * Pt has received 17 units of insulin over the pat 24hrs with NovoLog monotherapy per CF/CR. * All BSGs > 200 mg/dl. * Possibility of patient to DC today on steroid/prednisone taper, therefore will hold off on basal insulin at this moment. Will tighten CF/CR * Will add basal insulin per scale this evening if pt does not DC PLAN FOR INPATIENT GLYCEMIC CONTROL: * Basal insulin * Lantus this evening if patient does not dc * BSG < 140 mg/dl --> 0 units * BSG 140-180 mg/dl --> 15 units * BSG > 180 mg/dl --> 20 units * Bolus insulin * NovoLog per scale ACHS or Q6hrs while NPO * Goal Range: Low 100 mg/dL - High 140 mg/dL * Correction Factor: 20 mg/dL/unit * Nutritional / Prandial insulin per carb ratio of 1 unit per 7 grams CHO consumed PLAN FOR DISCHARGE: * Pt may need an insulin taper vs metformin if high dose steroids are continued. Dosing TBD
--- NOTE | 2021-02-06 13:48 | Orthopedic Consultation ---
Date of Consultation February 06, 2021 Assessment & Plan (1) Knee pain, left: She seems to have rather chronic left knee pain after multiple revision total knee arthroplasties in the distant past. She describes intermittent snapping and popping along her patellofemoral articulation. There is some patellar tilt on her x-rays, and I suspect that her pain is mechanical. She likely has a small reactive effusion. She certainly has no evidence of infection in this total knee arthroplasty, with no pain with ambulation or range of motion, and a benign exam; I would not recommend any attempt at aspiration, as this may cause an iatrogenic infection. She can follow-up with Dr. Betancourt in orthopedics clinic after discharge for further discussion of management of this mechanical knee pain. Call [facility] at [phone] to make an appointment. History of Present Illness Reason for Consultation: Left knee pain Requesting Physician: Dr. James Attending Physician: Zacarias James History of Present Illness Ms. Wagner is a 75-year-old female who has had a previous history of multiple knee replacements in both knees. She is a very poor historian, but says that she had roughly 6 knee replacements between her 2 knees. She says that the "parts kept breaking". Her last revision on her left knee was done many years ago by Dr. Betancourt; she does not remember what year. She thinks that this left knee has been giving her intermittent pain for somewhere around 2 to 3 months, but she is unsure of this. She often notices a snapping or catching sensation along her kneecap and makes it sore afterwards. This has gotten slightly more sore and achy over the past month or so. She denies ever having any problems with the incision such as redness, swelling, or drainage. She is still able to move the knee very well, and weight-bear without any pain. The main reason for consultation seems to be an incidentally-noted small effusion on left knee x- ray, and we were asked to evaluate for any potential for infection. Allergies Allergy/AdvReac Type Severity Reaction Status Date / Time iron dextran complex Allergy Severe RASH Verified 02/03/21 23:27 choline salicylate Allergy Intermediate TRILISATE-r Verified 02/03/21 23:27 nay magnesium salicylate Allergy Intermediate TRILISATE-r Verified 02/03/21 23:27 nay Trilisate Allergy Intermediate TRILISATE-r Verified 11/05/16 17:37 nay mometasone furoate Allergy Unknown Pt has no Verified 02/03/21 23:27 recollection of this Ferric Oxide Allergy Severe VENOFER Uncoded 02/03/21 23:27 INFUSION-RASH,WEAKNESS,BLEEDING-HOSPITALIZED Home Medications Medication Instructions Recorded Confirmed Type folic acid 1 mg tablet 1 mg PO DAILY 05/06/20 02/03/21 History multivitamin 1 tab PO DAILY 05/06/20 02/03/21 History BD Eclipse 25 gauge x 1" needle #3 ea NS 07/02/20 01/24/21 Rx metoprolol succinate 50 mg 75 mg PO BID tab 07/15/20 02/03/21 History tablet,extended release 24 hr atorvastatin 10 mg tablet 10 mg PO DAILY #90 tab 07/30/20 02/03/21 Rx potassium chloride 20 mEq/15 mL 60 meq PO DAILY #3800 ml 08/13/20 02/03/21 Rx oral liquid warfarin 2.5 mg tablet 2.5 mg PO 6XWK 09/19/20 02/03/21 History bumetanide 1 mg PO DIRECTED PRN 01/02/21 02/03/21 History cyanocobalamin (vitamin B-12) 1,000 mcg IM Q4WK 01/02/21 02/03/21 History metolazone 5 mg PO DIRECTED PRN 01/02/21 02/03/21 History warfarin 5 mg PO WK 01/02/21 02/03/21 History duloxetine 30 mg capsule,delayed 30 mg PO DAILY #30 cap 01/24/21 02/03/21 Rx release gabapentin 100 mg capsule 100 mg PO TID #90 cap 01/24/21 02/03/21 Rx oxycodone-acetaminophen 5 mg-325 1 tab PO Q6H PRN #14 tab 01/27/21 02/03/21 Rx mg tablet Patient History Medical History Abnormal CT scan, chest Acute blood loss anemia Anastomotic ulcer S/P gastric bypass ASCVD (arteriosclerotic cardiovascular disease) Carotid stenosis, asymptomatic left Carpal tunnel syndrome Cervical radiculopathy Chronic diastolic (congestive) heart failure Diabetic peripheral neuropathy associated with type 2 diabetes mellitus Elevated alkaline phosphatase level Esophageal candidiasis Eustachian tube dysfunction Hearing loss HTN (hypertension) Hyperlipidemia Hypertension 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 Mitral regurgitation Nontoxic multinodular goiter Obesity Obstructive sleep apnea Osteoporosis Pericardial effusion Permanent atrial fibrillation Personal history of diabetic foot ulcer Spinal stenosis, lumbar region with neurogenic claudication Severe L4-5 Venous insufficiency (chronic) (peripheral) Vitamin B12 deficiency Vitamin D deficiency Surgical History H/O gastric bypass H/O hernia repair H/O splenectomy H/O splenectomy History of esophagogastroduodenoscopy (EGD) History of knee replacement bilateral History of total abdominal hysterectomy Hx of appendectomy Hx of cholecystectomy Hx of tonsillectomy S/P aortic valve replacement (2011) S/P gastric bypass S/P mitral valve replacement (2011) S/P pericardial window creation (2011) Status post panniculectomy Family History Mother Congestive heart failure Diabetes Hypertension Cardiac disorder Brother Diabetes Polycythemia Pharyngeal neoplasm Pulmonary embolism Father Lung cancer Acute myocardial infarction Hypertension Cardiac disorder Myocardial infarction Denies family history of Ovarian cancer Prostate cancer Crohn's disease Breast cancer Colorectal cancer Social History Smoking Status: Never smoker Second Hand Exposure: No; Hx Alcohol Use: Yes Alcohol type: hard liquor Alcohol type Comment: occassional mixed drink Hx Substance Use: No Preferred Language: Guinean Communication Ability: Effective Visual Impairment: No Limitations Hearing Ability: 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 Beliefs That Will Affect Care: None marital status: Current Living Situation: Spouse current occupational status: retired How many Children do You have: 1 Feels Safe at Home: Yes Childhood Exposure to Second-Hand Smoke: No Diet Comment: pt watches diet intake s/p gastric bypass surgery caffeine: Yes during the past year weight has: remained stable Dental Care, Regularly: Yes Physical Activity Frequency: 3-4 Times per Week Seatbelt Use: always Sunscreen Use: Yes Assistive Devices: Walker Physical Exam Physical Exam: Examination of her left knee reveals a well-healed surgical incision without any evidence of infection. No warmth, erythema, induration, or fluctuance. She is morbidly obese in her legs, and it is impossible to palpate for any effusion. I cannot palpate her patella with her abundant adipose tissue layer. However she does have very good range of motion from at least 0 to 90 degrees without any pain or palpable crepitus along the patellofemoral articulation. Results & Data ([facility]) Vital Signs (Past 12 Hours) Vital Signs Temp Pulse Resp BP Pulse Ox 02/06/21 07:19 36.5 C 66 16 147/82 H 96 Diagnostic Findings Left knee x-rays were reviewed. They show a total knee arthroplasty with what appears to be a constrained polyethylene component. There is rather significant patellar tilt on the sunrise view. Otherwise no significant evidence of complication with these revision total knee arthroplasty components. (1) Knee pain, left Chronicity: unspecified Qualified Code(s): M25.562 - Pain in left knee
[2021-02-06] MEDS: WARFARIN SOD 2.5 MG TAB PO SCH (16:29)
[2021-02-06] MEDS ORDERED: INSULIN GLARGINE SOLOSTAR 100 UNITS/ML 3 ML PEN SC SCH (21:00)
--- NOTE | 2021-02-06 22:25 | Hospitalist Progress Note ---
Date of Service February 06, 2021 Assessment & Plan (1) Acute pain of right hip: X-ray reveals degenerative changes. Known lumbar stenosis which raises the possibility of lumbar radiculopathy causing current symptoms. Uncertain if Lyme disease or rheumatologic process is also involved. She is now on Solu- Medrol which has helped symptomatically. She may have lumbar radiculopathy with right sided sciatica producing current symptoms. No evidence of shingles. She refuses to take Cymbalta or gabapentin. Will continue to use steroids with plan of tapering it down. Lyme disease was ruled out will continue ABX until urine culture comes back. (2) Knee pain, left: Left knee effusion noted on x-ray. May need aspiration for further study. Parenteral steroids for now. Pain control measures. ID consulted to evaluate the possibility of Lyme arthritis. (3) Diffuse arthralgia: Lyme IgG positive - western blot confirmatory panel pending. Doxycycline 100mg BID for now. ID consult requested and pending (4) Permanent atrial fibrillation: Rate controlled. Anticoagulated on Coumadin . Therapeutic INR . Continue Coumadin at home dose. Continue Metoprolol 75mg po BID with holding parameters (5) Hypertension: BP stable. Continue metoprolol (6) Chronic diastolic (congestive) heart failure: Stable. No exacerbation. Monitor intake and output. Continue current management DVT Ppx - Coumadin Code - Full Code Admission and Anticipated Discharge Date Admission Date: February 04, 2021 Subjective 75 yo female reports feeling SOB in the AM. he reports her pain has improved. She is concerned about possibility of lyme. Review of Systems Review of Systems: All systems reviewed & are unremarkable except as noted in HPI & below Physical Exam Physical Exam: General-alert and oriented x3, no fevers, no chills HEENT-head atraumatic and normocephalic, pupils equal and reactive to light, extraocular muscles intact Neck-no lymphadenopathy or thyromegaly, trachea midline Chest-clear to auscultation percussion. No rales wheezing or rhonchi Cardiac-regular rate and rhythm, normal S1 and S2, no murmurs Abdomen-normal bowel sounds, nontender, no hepatosplenomegaly Extremities-no cyanosis, clubbing, or edema Neuro-cranial nerves II through XII intact, motor and sensory function within normal limits, strength symmetrical , no focal deficits Psych-normal affect, normal mood Results & Data Results & Data ([facility]) Vital Signs (Past 12 Hours) Vital Signs Temp Pulse Resp BP BP Pulse Ox 02/06/21 21:31 90 153/77 H 02/06/21 15:53 36.3 C L 73 16 143/81 H 96 PG Care Time/CCT Total # of Minutes Spent Total Time Spent with Patient: Total time spent is greater than 50% in coordination of care (as documented) at patient's floor/unit and/or counseling patient: Coding Level of Care Code 82577 Subseq Hosp Care Lvl 3 Diagnoses Acute pain of right hip M25.551 Knee pain, left M25.562 Chronicity: unspecified Diffuse arthralgia M25.50 Permanent atrial fibrillation I48.21 Hypertension I10 Hypertension type: essential hypertension Chronic diastolic (congestive) heart failure I50.32 Time Spent (min) 35 (1) Knee pain, left Chronicity: unspecified Qualified Code(s): M25.562 - Pain in left knee (2) Hypertension Hypertension type: essential hypertension Qualified Code(s): I10 - Essential (primary) hypertension
[2021-02-07] MEDS: DICLOFENAC SOD 1% GEL 100 GM TUBE EXT SCH ×3 (00:01→13:24)
[2021-02-07] MEDS: methylPREDNISolone 60 MG in SYRINGE 0 ML IV SCH ×2 (04:00→09:38)
[2021-02-07 05:57] LABS: Hematocrit (blood only) 31.6 % (37-47); Hemoglobin 10.5 g/dL (12.0-16.0); Immature Granulocytes # (auto) 0.04 K/uL (0.00-0.02); Immature Granulocytes % (auto) 0.4 %; Lymphocytes # (auto) 0.97 K/uL (1.2-3.4); Lymphocytes % (auto) 9.5 %; Mean Corpuscular Hgb Conc 33.2 g/dL (32-36); Mean Corpuscular Volume 84.3 fL (80-100); Mean Platelet Volume 9.2 fL (7.4-10.4); Monocytes # (auto) 0.45 K/uL (0.11-0.59); Monocytes % (auto) 4.4 %; Neutrophils % (auto) 85.7 %; Platelet Count 502 K/uL (130-400); RDW Coefficient of Variation 15.5 % (11.5-14.5); RDW Standard Deviation 48.3 fL (36.4-46.3); Red Blood Count 3.75 M/uL (4.2-5.4); White Blood Count 10.26 K/uL (4.8-10.8)
[2021-02-07 06:18] LABS: INR 4.2 (0.9-1.1); Prothrombin Time 38.4 Seconds (9.0-12.0)
[2021-02-07] MEDS: ACETAMINOPHEN 500 MG TAB PO SCH (06:18)
[2021-02-07 06:46] LABS: Calcium 8.8 mg/dl (8.5-10.1); Creatinine Clr Calc Pharmacy 64.1 ml/min; Est GFR (African American) 67.5; Est GFR (Non-African American) 58.3; Potassium 3.4 mmol/L (3.5-5.1)
[2021-02-07] MEDS: POLYETHYLENE (MIRALAX) 17 GM PACK PO SCH (09:37)
[2021-02-07] MEDS: metOLazone 5 MG TABLET PO SCH (09:37)
[2021-02-07] MEDS: LIDOCAINE 5% 1 PATCH TD SCH (09:37)
[2021-02-07] MEDS: BUMETANIDE 1 MG TAB PO SCH (09:38)
[2021-02-07] MEDS: ATORVASTATIN 10 MG TAB PO SCH (09:38)
[2021-02-07] MEDS: FOLIC ACID 1 MG TAB PO SCH (09:38)
[2021-02-07] MEDS: DOXYCYCLINE HYCLATE 100 MG CAP PO SCH (09:39)
[2021-02-07] MEDS: POTASSIUM CHLORIDE 20 MEQ/15 ML UDC PO SCH (09:39)
[2021-02-07] MEDS: METOPROLOL SUCC 25MG EXT REL TAB PO SCH (09:39)
[2021-02-07] MEDS: INSULIN ASPART 100 UNITS/ML 3 ML PEN SC SCH ×2 (09:43→13:24)
--- NOTE | 2021-02-09 08:01 | Discharge Summary ---
Date of Service February 07, 2021 Admission HPI Per Admitting Provider Patient is a 75yo female presenting with progressive joint pain. She has history of chronic pain, mostly affecting knees, shoulders, neck and back. She has had worsening back pain for the last month - it began when she was sliding some furniture on a carpet with her and she felt something "snap" in her back. She has had pain in the left knee that has been progressively worsening over the last 2 weeks. Today she had acute pain in her right hip and groin with radiation into her foot. Unable to ambulate due to pain. Also with left breast pain and neck pain today. Longstanding history of spinal stenosis with neurogenic claudication. She was seen by Pain Management clinic on 01/24/21 - was recommended to start Cymbalta and Gabapentin. Patient reports she took these medications for two days and devel oped some abdominal pain and nausea. She was also a bit leery of taking these medications due to the listed side effects, specifically concerns with balance, confusion and risk for bleeding. She does not wish to take these medications. Patient is concerned about being ablt to go home with her current level of pain and immobility. Er Course: Ceftriaxone, Diludid, Zofran, NSS Principal Diagnosis acute right hip pain Discharge Exam General-alert and oriented x3, no fevers, no chills HEENT-head atraumatic and normocephalic, pupils equal and reactive to light, extraocular muscles intact Neck-no lymphadenopathy or thyromegaly, trachea midline Chest-clear to auscultation percussion. No rales wheezing or rhonchi Cardiac-regular rate and rhythm, normal S1 and S2, no murmurs Abdomen-normal bowel sounds, nontender, no hepatosplenomegaly Extremities-no cyanosis, clubbing, or edema Neuro-cranial nerves II through XII intact, motor and sensory function within normal limits, strength symmetrical , no focal deficits Psych-normal affect, normal mood Discharge Data Allergies Allergy/AdvReac Type Severity Reaction Status Date / Time iron dextran complex Allergy Severe RASH Verified 02/08/21 15:13 choline salicylate Allergy Intermediate TRILISATE-r Verified 02/08/21 15:13 nay magnesium salicylate Allergy Intermediate TRILISATE-r Verified 02/08/21 15:13 nay Trilisate Allergy Intermediate TRILISATE-r Verified 11/05/16 17:37 nay mometasone furoate Allergy Unknown Pt has no Verified 02/08/21 15:13 recollection of this Ferric Oxide Allergy Severe VENOFER Uncoded 02/08/21 15:13 INFUSION-RASH,WEAKNESS,BLEEDING-HOSPITALIZED Consultations 02/04/21 08:01 Consult Infectious Diseases Routine 02/04/21 11:44 Consult Orthopedic Surgery Routine 02/06/21 11:29 Consult Orthopedic Surgery Routine Hospital Course (1) Acute pain of right hip: X-ray reveals degenerative changes. Known lumbar stenosis which raises the possibility of lumbar radiculopathy causing current symptoms. Lyme disease was ruled out. Patient was on doxycycline during hospital stay, this will be held on discharge. She is now on Solu-Medrol which has helped symptomatically. She may have lumbar radiculopathy with right sided sciatica producing current symptoms. No evidence of shingles. She refuses to take Cymbalta or gabapentin. Will continue to use steroids with plan of tapering it down. Lyme disease was ruled out Stopped antibiotics given how culture was resistant to Doxy and patient is feeling better, and she never had symptoms of a UTI. (2) Knee pain, left: Left knee effusion noted on x-ray. May need aspiration for further study. Parenteral steroids for now. Pain control measures. ID consulted to evaluate the possibility of Lyme arthritis. (3) Diffuse arthralgia: Lyme IgG positive - western blot confirmatory panel pending. Doxycycline 100mg BID for now. ID consult requested and pending (4) Permanent atrial fibrillation: Rate controlled. Anticoagulated on Coumadin . INR is elevated, will hold today's dose of coumadin, patient will f/u with PCP. Continue Metoprolol 75mg po BID with holding parameters (5) Hypertension: BP stable. Continue metoprolol (6) Chronic diastolic (congestive) heart failure: Stable. No exacerbation. Monitor intake and output. Continue current management Code - Full Code Total Time Total Time Spent Total Time Spent (In Minutes): 32 Discharge Plan Discharge Items Patient Disposition: Home - Self-Care Reason For Visit: RIGHT HIP PAIN/POSSIBLE LYMES Discharge Diagnosis: right hip pain Activity: Resume your previous activity Non-emergency contact: Primary Care Provider Call non-emergency contact if: you have any medication questions Follow-up/Referrals: Fernie Rodriguez MD [Primary Care Provider] - Diet: Regular Addtl Attending Provider Instructions: Will recommend followup with Cardiology to discuss risk of surgery if patient would like to pursue this in the future. You will be on a prednisone taper to help with the pain. You were seen for possible lyme disease but this was negative. Pending Studies at Discharge: No Stand-Alone Forms: [facility], [facility] Pain Management, Work/School Release (Inpt), Smoking Cessation Medications and DC Order Prescriptions: New lidocaine 5 % Adhesive Patch,Medicated 1 patch transdermal QAM Qty: 20 RF: 0 Continued (DME) BD Eclipse 25 gauge x 1" needle See Rx Instructions .ROUTE .MEDSUPPLY Qty: 3 RF: 3 warfarin 2.5 mg tablet 2.5 mg PO 6XWK RF: 0 oxycodone-acetaminophen [Percocet] 5-325 mg tablet 1 tab PO Q6H PRN (Reason: pain) Qty: 14 RF: 0 folic acid 1 mg tablet 1 mg PO QAM RF: 0 multivitamin Tablet 1 tab PO QAM RF: 0 metoprolol succinate 50 mg tablet extended release 24 hr 50 mg PO BID RF: 0 metolazone 5 mg tablet 5 mg PO DIRECTED PRN (Reason: Weight Gain) RF: 0 cyanocobalamin (vitamin B-12) 1,000 mcg/mL solution 1,000 mcg IM Q4WK RF: 0 warfarin 5 mg tablet 5 mg PO WK RF: 0 bumetanide 1 mg tablet 1 mg PO DIRECTED PRN (Reason: Weight Gain) RF: 0 No Action tramadol 50 mg tablet 50 mg PO UD PRN (Reason: Pain) RF: 0 prednisone 10 mg tablet 10 mg PO .TAPER RF: 0 atorvastatin 10 mg tablet 10 mg PO QAM RF: 0 potassium chloride 20 mEq/15 mL liquid 60 meq PO QAM RF: 0 Discharge Orders: Discharge Order (Routine); Ordered 02/07/21 Ordered By: Zacarias Deleon/Other Patient Handouts: What to Know When TakingWarfarin, Complementary Care for Pain Admission Data Admit Date/Time: 02/07/21 07:24 Attending Provider: Zacarias James Admit Provider: Lynnette Monroe Primary Care Provider: Fernie Rodriguez Other Providers: Corey Lawrence ; Mega Gabriel ; Derrell Monroe I. ; Stanley Flores II ; Dalila Dash ; Richi Sharma ; Sergio Avendaño ; Sandor Sequeira Other Interventions: Discharge Summary Assessment (RN) Last Done: 02/07/21 13:30 Coding Level of Care Code D/C Day Management >30 mins Diagnoses Acute pain of right hip M25.551 Knee pain, left M25.562 Chronicity: unspecified Diffuse arthralgia M25.50 Permanent atrial fibrillation I48.21 Hypertension I10 Hypertension type: essential hypertension Chronic diastolic (congestive) heart failure I50.32 Time Spent (min) 32
== END 2021-02-07 13:25 | disposition home or self-care (01) ==
LOC: 3E 23:14 → ED 23:14 → SUATTDRO 02-04 03:53 → 3E 02-04 05:01

== ENCOUNTER 2021-02-08 13:40 | Inpatient (IN) ==
[2021-02-08] MEDS ORDERED: SODIUM CHLORIDE 0.9% 1000ML 1,000 ML IV ONE ×2 (13:56→14:01)
[2021-02-08] MEDS ORDERED: SODIUM CHLORIDE 0.9% 250 ML IV PRN (14:07)
[2021-02-08 14:17] LABS: iSTAT Hemoglobin 7.5 g/dl (12.0-16.0); iSTAT Ionized Calcium 1.15 mmol/l (1.12-1.32); iSTAT Potassium 3.7 mmol/L (3.3-5.0)
[2021-02-08 14:22] LABS: Hematocrit (blood only) 23.7 % (37-47); Hemoglobin 7.8 g/dL (12.0-16.0); Mean Corpuscular Hemoglobin 28.2 pg (25-34); Mean Corpuscular Hgb Conc 32.9 g/dL (32-36); Mean Corpuscular Volume 85.6 fL (80-100); Platelet Count 383 K/uL (130-400); RDW Coefficient of Variation 15.2 % (11.5-14.5); RDW Standard Deviation 47.9 fL (36.4-46.3); Red Blood Count 2.77 M/uL (4.2-5.4); White Blood Count 11.12 K/uL (4.8-10.8)
[2021-02-08 14:27] LABS: Alanine Aminotransferase 91 U/L (12-78); Albumin Level 2.6 gm/dl (3.4-5.0); Aspartate Aminotransferase 144 U/L (15-37); BUN Creatinine Ratio 52.6 (10-20); Bilirubin Direct 0.2 mg/dl (0-0.2); Blood Urea Nitrogen 61 mg/dl (7-18); Calcium 8.1 mg/dl (8.5-10.1); Carbon Dioxide 24 mmol/L (21-32); Chloride 106 mmol/L (98-107); Est GFR (African American) 53.7; Est GFR (Non-African American) 46.3; Glucose 252 mg/dl (70-99); Lipase 197 U/L (73-393); Potassium 3.6 mmol/L (3.5-5.1); Sodium 140 mmol/L (136-145)
[2021-02-08 14:30] LABS: Alkaline Phosphatase 125 U/L (45-117); Bilirubin,Total 0.7 mg/dl (0.2-1)
[2021-02-08 14:36] LABS: Basophils # (auto) 0.01 K/uL (0-0.2); Basophils % (auto) 0.1 %; Immature Granulocytes # (auto) 0.12 K/uL (0.00-0.02); Immature Granulocytes % (auto) 1.1 %; Lymphocytes # (auto) 1.13 K/uL (1.2-3.4); Lymphocytes % (auto) 10.2 %; Monocytes # (auto) 1.06 K/uL (0.11-0.59); Monocytes % (auto) 9.5 %; Neutrophils % (auto) 79.1 %; Poikilocytosis Present
[2021-02-08 14:37] LABS: Partial Thromboplastin Ratio 1.2; Partial Thromboplastin Time 31.4 Seconds (21.0-31.0); Prothrombin Time 53.1 Seconds (9.0-12.0)
[2021-02-08] MEDS ORDERED: PHYTONADIONE 5 MG in SODIUM CHLORIDE 0.9% 50 ML IV ONE ×2 (14:44→20:15)
[2021-02-08] MEDS ORDERED: OPTIRAY 320 100ml IV ONE (14:45)
--- NOTE | 2021-02-08 15:01 | CT Scan Report ---
HEAD CT NONCONTRAST CT DOSE: HISTORY: fall TECHNIQUE: Multiaxial CT images of the head were performed without the use of intravenous contrast. A utomated exposure control was utilized for this study. A dose lowering technique was utilized adheri ng to the principles of ALARA. Comparison: Head CT 02/15/2020. Findings: Small retention cyst within the right maxillary sinus. The mastoid air cells are clear. The calvarium and skull base are intact. There is no mass, hematoma, midline shift, acute infarct. White matter hypodensity is nonspecific but suggestive of microvascular ischemic change. The ventricles an d sulci demonstrate mild age-related involutional changes. Impression: No acute intracranial abnormality. ACT 112: Negative or not required by law. Electronically signed by: Roverto Aguilar M.D. 02/08/2021 3:00 PM
--- NOTE | 2021-02-08 15:06 | CT Scan Report ---
CERVICAL SPINE CT CT DOSE: 2430.02 mGy.cm HISTORY: Fall. TECHNIQUE: Multiaxial CT images of the cervical spine were performed and reformatted in the sagittal and coronal plane without the use of contrast. A dose lowering technique was utilized adhering to th e principles of ALARA. COMPARISON: Neck CTA 02/15/2020. FINDINGS: No fractures. 2 mm of anterolisthesis of C6 on C7. This is likely due to long-standing dege nerative change. There are severe disc space narrowing from C3 through C7 with small endplate osteoph ytes. Prevertebral soft tissues and the C1-C2 interval are intact. No pneumothorax. Redemonstration o f the left-sided multinodular goiter. This is similar to the prior study and results in mild right tr acheal deviation. IMPRESSION: No fractures within the cervical spine. ACT 112: Negative or not required by law. Electronically signed by: Roverto Aguilar M.D. 02/08/2021 3:04 PM
--- NOTE | 2021-02-08 15:16 | CT Scan Report ---
ABDOMEN AND PELVIS CT WITH IV CONTRAST CT DOSE: HISTORY: Fall. GI bleed. Low back pain. TECHNIQUE: Multiaxial CT images of the abdomen and pelvis were performed following the use of intrave nous contrast. A dose lowering technique was utilized adhering to the principles of ALARA. COMPARISON STUDY: Abdomen and pelvis CT 01/02/2021. FINDINGS: Bibasilar linear densities consistent with subsegmental atelectasis. The heart remains mild ly enlarged. Poststernotomy changes and cardiac valve prostheses are again noted. No pneumoperitoneum . No pneumatosis. Old moderate superior endplate compression deformities at L2 and L4 are not signifi cantly changed. There is a moderate superior endplate compression fracture at L1 demonstrating 50% lo ss of height and 3 mm of retropulsion of the posterior superior corner. This demonstrates sclerotic e dges and therefore favors an acute on chronic injury. There is mild paravertebral edema at L1. Subtle nodular contour to the liver consistent with cirrhosis. No hepatic masses. Prior cholecystectomy and splenectomy. A few small splenic nodules remain within the left upper quadrant. There is also eviden ce for prior gastric bypass. No retroperitoneal lymphadenopathy. Normal caliber abdominal aorta. Mult iple bilateral renal hypodense lesions are again noted. The majority of these are subcentimeter in si ze and therefore too small to characterize. Dominant hypodense lesion within the upper pole the left kidney measures 2.8 cm. These statistically represent cysts. There is a punctate nonobstructing stone within the upper pole the right kidney. No ureteral stones. No hydronephrosis. Prior hysterectomy. T he bladder is unremarkable. Moderate well-formed stool seen within the colon and rectum. A few coloni c diverticula. No evidence for acute diverticulitis. No bowel wall thickening or obstruction. Normal appendix. The pancreas remains atrophic. IMPRESSION: 1. An acute on chronic moderate superior endplate compression fracture at L1. This demonstrates 50% l oss of height and 3 mm of retropulsion. No significant central canal narrowing. 2. No bowel wall thickening or obstruction. 3. Postoperative changes as described above. 4. Right-sided nephrolithiasis. No hydronephrosis. ACT 112: Negative or not required by law. Electronically signed by: Roverto Aguilar M.D. 02/08/2021 3:15 PM
--- NOTE | 2021-02-08 15:31 | XRay Report ---
XR chest 1V portable HISTORY: Fall. COMPARISON: Chest 02/03/2021. FINDINGS: No pneumothorax. No pleural effusions. The heart remains enlarged. There are poststernotomy changes and cardiac valve prostheses are again noted. No new focal lung consolidations to suggest pn eumonia. No evidence for pulmonary edema. Small linear density at the left lung base persists and fav ors subsegmental atelectasis. IMPRESSION: No significant change compared to the prior study. No acute process. ACT 112: Negative or not required by law. Electronically signed by: Roverto Aguilar M.D. 02/08/2021 3:29 PM
--- NOTE | 2021-02-08 15:40 | XRay Report ---
XR pelvis 1-2V routine CLINICAL HISTORY: Fall. Pelvic pain. COMPARISON STUDY: Pelvis and right hip 02/03/2021. FINDINGS: The bones are osteopenic. No fracture or dislocation within the pelvis or hips. The sacrum appears intact. There are surgical clips within the deep pelvis. Soft tissues are unremarkable. IMPRESSION: No fracture or dislocation within the pelvis or hips. ACT 112: Negative or not required by law. Electronically signed by: Roverto Aguilar M.D. 02/08/2021 3:38 PM
[2021-02-08] MEDS ORDERED: SODIUM CHLORIDE 0.9% 1000ML 1,000 ML IV SCH (15:45)
[2021-02-08] MEDS ORDERED: PANTOPRAZOLE BOLUS/DRIP 1 EA IV STA (15:50)
--- NOTE | 2021-02-08 15:53 | History & Physical Report ---
Date of Service February 08, 2021 Assessment & Plan (1) GIB (gastrointestinal bleeding): H&H every 6 hourly Transfuse 2 units Vitamin K 5 mg IV given in ER Hematemesis and lower GI bleed Stop prednisone Consult gastroenterology (2) Acute blood loss anemia: Symptomatic with lightheadedness and prior syncope (3) Supratherapeutic INR: Suspect secondary to doxycycline given last admission Vit K 5mg IV given in ER, PTINR daily (4) Hematemesis: As above (5) Syncope: Secondary to orthostatic hypotension from GI bleed as above (6) Diffuse arthralgia: Given nonreactive IgM we will discontinue doxycycline. Due to elevated LFTs especially AST will get CPK to assess for myositis. (7) Diabetic peripheral neuropathy associated with type 2 diabetes mellitus: HbA1C 6.4 in November Consult pharmacy for glycemic control while admitted with basal/bolus insulin (8) GERD (gastroesophageal reflux disease): IV pantoprazole drip as above (9) Permanent atrial fibrillation: Continue metoprolol succinate 50mg BID for rate control with hold parameters Off anticoagulation due to GI bleed as above (10) S/P aortic valve replacement: Mechanical mitral and aortic valves Will need restarting on heparin IV drip once GI bleed stable and therapeutic warfarin prior to discharge (11) History of Chris-en-Y gastric bypass: (12) Acute pain of right hip: Lumbar radiculopathy from last admission Improved with prednisone Consider gabapentin taper per last pain management note if reoccurs (13) L1 vertebral fracture: Noted on CT A/P suspect because of her right-sided lumbar radiculopathy and pain on last admission. Admission and Anticipated Discharge Date Admission Date: February 08, 2021 History of Present Illness Chief Complaint: Hematemesis, syncope Primary Care Provider: Fernie Rodriguez MD Eden Wagner is a 75-year-old female who presents to the ER with bright red rectal bleeding, hematemesis, syncope and anemia. She was recently admitted to hospital from February 05 and discharged yesterday due to diffuse arthralgias (especially right hip pain) which was treated as Lyme disease with doxycycline and Solu-Medrol which was switched to her tapering dose of prednisone for lumbar radiculopathy. Her INR is supratherapeutic in the emergency room likely due to doxycycline use in the setting of her usual warfarin dosing. She was discharged on half her usual dose of warfarin and took 1.25mg PO yesterday due to elevated INR 4.2 on discharge. She noted possible dark stools yesterday but that is down to blueberries she had eaten during her last hospitalization. First thing this morning stools were dark. While trying to get up she felt dizzy, nauseated and fatigued around 8am. When she stood up to get on the commode she had a full syncopal events and woke up on the floor. She denies hitting her head. After this she had hematemesis and was noted by EMS to have bright red blood clots coming from rectum. She had an additional syncopal events and was brought in via EMS. She has a significant Chris-en-Y gastric bypass and history of GI bleed in March 2020 with melena. She requires blood transfusions from [facility] due to prior antibodies. On that occasion she had gastrojejunal anastomosis ulceration without stigmata of bleeding on EGD. In the ER she was noted to be significantly anemic from previous with hemoglobin 7.8 from 10.5 the previous day. In addition her INR is 6.0 from 4.2. She was treated with NSS 2 oh bolus and vitamin K 5 mg IV. She is referred to medicine for admission and ongoing management of GI bleed. Allergies Allergy/AdvReac Type Severity Reaction Status Date / Time iron dextran complex Allergy Severe RASH Verified 02/08/21 15:13 choline salicylate Allergy Intermediate TRILISATE-r Verified 02/08/21 15:13 nay magnesium salicylate Allergy Intermediate TRILISATE-r Verified 02/08/21 15:13 nay Trilisate Allergy Intermediate TRILISATE-r Verified 11/05/16 17:37 nay mometasone furoate Allergy Unknown Pt has no Verified 02/08/21 15:13 recollection of this Ferric Oxide Allergy Severe VENOFER Uncoded 02/08/21 15:13 INFUSION-RASH,WEAKNESS,BLEEDING-HOSPITALIZED Home Medications Medication Instructions Recorded Confirmed Type folic acid 1 mg tablet 1 mg PO QAM 05/06/20 02/08/21 History multivitamin 1 tab PO QAM 05/06/20 02/08/21 History BD Eclipse 25 gauge x 1" needle #3 ea NS 07/02/20 01/24/21 Rx metoprolol succinate 50 mg 50 mg PO BID tab 07/15/20 02/08/21 History tablet,extended release 24 hr warfarin 2.5 mg tablet 2.5 mg PO [id number] 09/19/20 02/08/21 History bumetanide 1 mg PO DIRECTED PRN 01/02/21 02/08/21 History cyanocobalamin (vitamin B-12) 1,000 mcg IM Q4WK 01/02/21 02/08/21 History metolazone 5 mg PO DIRECTED PRN 01/02/21 02/08/21 History warfarin 5 mg PO WK 01/02/21 02/08/21 History oxycodone-acetaminophen 5 mg-325 1 tab PO Q6H PRN #14 tab 01/27/21 02/08/21 Rx mg tablet lidocaine 1 patch TRANSDERMAL QAM #20 ea 02/07/21 02/08/21 Rx atorvastatin 10 mg PO QAM 02/08/21 02/08/21 History potassium chloride 60 meq PO QAM 02/08/21 02/08/21 History prednisone 10 mg PO .TAPER 02/08/21 02/08/21 History tramadol 50 mg PO UD PRN 02/08/21 02/08/21 History Past Med/Surg History Medical History Abnormal CT scan, chest Acute blood loss anemia Anastomotic ulcer S/P gastric bypass ASCVD (arteriosclerotic cardiovascular disease) Carotid stenosis, asymptomatic left Carpal tunnel syndrome Cervical radiculopathy Chronic diastolic (congestive) heart failure Diabetic peripheral neuropathy associated with type 2 diabetes mellitus Elevated alkaline phosphatase level Esophageal candidiasis Eustachian tube dysfunction Hearing loss HTN (hypertension) Hyperlipidemia Hypertension 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) use 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 Mitral regurgitation Nontoxic multinodular goiter Obesity Obstructive sleep apnea Osteoporosis Pericardial effusion Permanent atrial fibrillation Personal history of diabetic foot ulcer Spinal stenosis, lumbar region with neurogenic claudication Severe L4-5 Venous insufficiency (chronic) (peripheral) Vitamin B12 deficiency Vitamin D deficiency Surgical History H/O gastric bypass H/O hernia repair H/O splenectomy H/O splenectomy History of esophagogastroduodenoscopy (EGD) History of knee replacement bilateral History of total abdominal hysterectomy Hx of appendectomy Hx of cholecystectomy Hx of tonsillectomy S/P aortic valve replacement (2012) S/P gastric bypass S/P mitral valve replacement (2012) S/P pericardial window creation (2012) Status post panniculectomy Family History Mother Congestive heart failure Diabetes Hypertension Cardiac disorder Brother Diabetes Polycythemia Pharyngeal neoplasm Pulmonary embolism Father Lung cancer Acute myocardial infarction Hypertension Cardiac disorder Myocardial infarction Denies family history of Ovarian cancer Prostate cancer Crohn's disease Breast cancer Colorectal cancer Social History Smoking Status: Never smoker Second Hand Exposure: No; Hx Alcohol Use: Yes Alcohol type: hard liquor Alcohol type Comment: occassional mixed drink Hx Substance Use: No Preferred Language: Nigerien Communication Ability: Effective Visual Impairment: No Limitations Hearing Ability: Normal Broadcast Checker Required: No Beliefs That Will Affect Care: None marital status: Current Living Situation: Spouse current occupational status: retired How many Children do You have: 1 Other Information That Helps Us Care for You: No Feels Safe at Home: Yes Safety Concerns: Feels Safe At This Time Childhood Exposure to Second-Hand Smoke: No Diet Comment: pt watches diet intake s/p gastric bypass surgery caffeine: Yes during the past year weight has: remained stable Dental Care, Regularly: Yes Physical Activity Frequency: 3-4 Times per Week Seatbelt Use: always Sunscreen Use: Yes Assistive Devices: Glasses and Walker Review of Systems Review of Systems: All systems reviewed & are unremarkable except as noted in HPI & below Physical Exam Constitutional: well developed; + not well nourished and no acute distress Eyes: + conjunctival abnormality (Pale) and + anicteric sclerae; normal pupil size ENMT: external ear and nose normal, oropharynx normal Neck: trachea midline, no thyromegaly Respiratory: normal respiratory effort, lungs clear to auscultation Cardiovascular: Rate/Rhythm: regular rate and + irregularly irregular Heart Sounds: no murmur Vessels: no JVD Extremities: normal capillary refill (5- 6 seconds peripherally, normal centrally) and + pedal edema (!+ edema to knee equal b/l); no calf tenderness Gastrointestinal (Abdomen): Inspection/Auscultation: abdomen normal to inspection and normal bowel sounds Percussion/Palpation: abdomen soft; abdomen nontender, no guarding and abdomen not rigid Musculoskeletal: no cyanosis or clubbing, extremities motor strength 5/5 (No joint pain) Skin: no rashes, warm and dry Neurologic: moves all extremities and awake; not confused Psychiatric: A+Ox3, euthymic affect Results & Data Results & Data ([facility]) Vital Signs (Past 12 Hours) Vital Signs Temp Pulse Resp BP Pulse Ox 02/08/21 14:03 108 H 18 98 02/08/21 13:40 36.5 C 108 H 18 102/[address] NONCONTRAST Impression: No acute intracranial abnormality. CERVICAL SPINE CT IMPRESSION: No fractures within the cervical spine ABDOMEN AND PELVIS CT WITH IV CONTRAST IMPRESSION: 1. An acute on chronic moderate superior endplate compression fracture at L1. This demonstrates 50% loss of height and 3 mm of retropulsion. No significant central canal narrowing. 2. No bowel wall thickening or obstruction. 3. Postoperative changes as described above. 4. Right-sided nephrolithiasis. No hydronephrosis. XR pelvis 1-2V routine IMPRESSION: No fracture or dislocation within the pelvis or hips. Medications Administered ER medications given: NSS 2L bolus Vitamin K 5 mg IV NSS @ 125ml/hr ECG Indication: tachycardia Rate (beats per minute): 104 Rhythm: atrial fibrillation Findings: no acute ischemic change Comparison ECG Date: from (February 03, 2021) Change: no significant change Code Status & VTE Plan Code Status Full VTE Prophylaxis Plan VTE Prophylaxis will be ordered: No Reason for no VTE drug order: Contraindicated PG Care Time/CCT Total # of Minutes Spent Total Time Spent with Patient: Total time spent is greater than 50% in coordination of care (as documented) at patient's floor/unit and/or counseling patient: Coding Level of Care Code 02099 Initial Inpt Care Lvl 3 Diagnoses GIB (gastrointestinal bleeding) K92.2 GI bleed type/associated pathology: unspecified gastrointestinal hemorrhage type Acute blood loss anemia D62 Supratherapeutic INR R79.1 Hematemesis K92.0 Syncope R55 Diffuse arthralgia M25.50 Diabetic peripheral neuropathy associated with type 2 diabetes mellitus E11.42 GERD (gastroesophageal reflux disease) K21.9 Permanent atrial fibrillation I48.21 S/P aortic valve replacement Z95.2 History of Chris-en-Y gastric bypass Z98.84 Acute pain of right hip M25.551 L1 vertebral fracture S32.019A (1) GIB (gastrointestinal bleeding) GI bleed type/associated pathology: unspecified gastrointestinal hemorrhage type Qualified Code(s): K92.2 - Gastrointestinal hemorrhage, unspecified
[2021-02-08] MEDS ORDERED: PANTOprazole 80 MG in DEXTROSE 5% 100 ML IV ONE (16:00)
--- NOTE | 2021-02-08 16:59 | Emergency Department Note ---
History of Present Illness General Chief complaint: GI Bleed Time Seen by Provider: 02/08/21 13:56 History of Present Illness Provider complaint: GI bleed Onset (ago): day(s) Associated symptoms: + nausea/vomiting; no confusion, no chest pain, no cough, no fever/chills, no headaches and no shortness of breath 75-year-old female on Coumadin presents emergency department GI bleed. Patient states earlier today she started having blood from her rectum and vomiting blood. Patient states she did fall. She states she was just discharged from the hospital yesterday. No hematuria. No chest pain or difficulty breathing. Home Medications Medication Instructions Recorded Confirmed Type folic acid 1 mg tablet 1 mg PO QAM 05/06/20 02/08/21 History multivitamin 1 tab PO QAM 05/06/20 02/08/21 History BD Eclipse 25 gauge x 1" needle #3 ea NS 07/02/20 01/24/21 Rx metoprolol succinate 50 mg 50 mg PO BID tab 07/15/20 02/08/21 History tablet,extended release 24 hr warfarin 2.5 mg tablet 2.5 mg PO [id number] 09/19/20 02/08/21 History bumetanide 1 mg PO DIRECTED PRN 01/02/21 02/08/21 History cyanocobalamin (vitamin B-12) 1,000 mcg IM Q4WK 01/02/21 02/08/21 History metolazone 5 mg PO DIRECTED PRN 01/02/21 02/08/21 History warfarin 5 mg PO WK 01/02/21 02/08/21 History oxycodone-acetaminophen 5 mg-325 1 tab PO Q6H PRN #14 tab 01/27/21 02/08/21 Rx mg tablet lidocaine 1 patch TRANSDERMAL QAM #20 ea 02/07/21 02/08/21 Rx atorvastatin 10 mg PO QAM 02/08/21 02/08/21 History potassium chloride 60 meq PO QAM 02/08/21 02/08/21 History prednisone 10 mg PO .TAPER 02/08/21 02/08/21 History tramadol 50 mg PO UD PRN 02/08/21 02/08/21 History Allergies Allergy/AdvReac Type Severity Reaction Status Date / Time iron dextran complex Allergy Severe RASH Verified 02/08/21 15:13 choline salicylate Allergy Intermediate TRILISATE-r Verified 02/08/21 15:13 nay magnesium salicylate Allergy Intermediate TRILISATE-r Verified 02/08/21 15:13 nay Trilisate Allergy Intermediate TRILISATE-r Verified 11/05/16 17:37 nay mometasone furoate Allergy Unknown Pt has no Verified 02/08/21 15:13 recollection of this Ferric Oxide Allergy Severe VENOFER Uncoded 02/08/21 15:13 INFUSION-RASH,WEAKNESS,BLEEDING-HOSPITALIZED Past Med/Surg History Medical History Abnormal CT scan, chest Acute blood loss anemia Anastomotic ulcer S/P gastric bypass ASCVD (arteriosclerotic cardiovascular disease) Carotid stenosis, asymptomatic left Carpal tunnel syndrome Cervical radiculopathy Chronic diastolic (congestive) heart failure Diabetic peripheral neuropathy associated with type 2 diabetes mellitus Elevated alkaline phosphatase level Esophageal candidiasis Eustachian tube dysfunction Hearing loss HTN (hypertension) Hyperlipidemia Hypertension Hypokalemia MCFP (current) use 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 Mitral regurgitation Nontoxic multinodular goiter Obesity Obstructive sleep apnea Osteoporosis Pericardial effusion Permanent atrial fibrillation Personal history of diabetic foot ulcer Spinal stenosis, lumbar region with neurogenic claudication 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 Venous insufficiency (chronic) (peripheral) Vitamin B12 deficiency Vitamin D deficiency Surgical History H/O gastric bypass H/O hernia repair H/O splenectomy H/O splenectomy History of esophagogastroduodenoscopy (EGD) History of knee replacement bilateral History of total abdominal hysterectomy Hx of appendectomy Hx of cholecystectomy Hx of tonsillectomy S/P aortic valve replacement (2011) S/P gastric bypass S/P mitral valve replacement (2011) S/P pericardial window creation (2011) Status post panniculectomy Family History Mother Congestive heart failure Diabetes Hypertension Cardiac disorder Brother Diabetes Polycythemia Pharyngeal neoplasm Pulmonary embolism Father Lung cancer Acute myocardial infarction Hypertension Cardiac disorder Myocardial infarction Denies family history of Ovarian cancer Prostate cancer Crohn's disease Breast cancer Colorectal cancer Social History Smoking Status: Never smoker Second Hand Exposure: No; Hx Alcohol Use: Yes Alcohol type: hard liquor Alcohol type Comment: occassional mixed drink Hx Substance Use: No Preferred Language: Spanish Communication Ability: Effective Visual Impairment: No Limitations Hearing Ability: Normal Portable Trackman Required: No Beliefs That Will Affect Care: None marital status: Current Living Situation: Spouse current occupational status: retired How many Children do You have: 1 Feels Safe at Home: Yes Childhood Exposure to Second-Hand Smoke: No Diet Comment: pt watches diet intake s/p gastric bypass surgery caffeine: Yes during the past year weight has: remained stable Dental Care, Regularly: Yes Physical Activity Frequency: 3-4 Times per Week Seatbelt Use: always Sunscreen Use: Yes Assistive Devices: Walker Review of Systems A total of 10 systems reviewed and were otherwise negative Physical Exam Vital Signs Vital Signs - 24 hr 02/08/21 13:40 02/08/21 13:53 02/08/21 14:03 Temperature 36.5 C Temperature Source Oral Pulse Rate 108 H 110 H 108 H Pulse Rate from SpO2 Sensor 115 H Pulse Rhythm Regular Regular Respiratory Rate 18 18 18 Respiratory Effort / Characteristics Non-Labored Spontaneous Respiratory Depth Normal Respiratory Pattern Regular Blood Pressure 102/71 102/71 Blood Pressure Mean 81 81 Pulse Oximetry 98 99 98 Oxygen Delivery Method Room Air Room Air Sepsis Recent Fever Within 48 Hours No Sepsis New/Unexplained Change in Mental Status No Sepsis Action Taken by Nursing No Action Required 02/08/21 14:08 02/08/21 14:15 02/08/21 14:30 Temperature Temperature Source Pulse Rate 97 H 87 Pulse Rate from SpO2 Sensor 99 H 91 H Pulse Rhythm Respiratory Rate 20 24 Respiratory Effort / Characteristics Respiratory Depth Respiratory Pattern Blood Pressure 115/67 103/62 115/59 L Blood Pressure Mean 83 75 77 Pulse Oximetry 100 99 Oxygen Delivery Method Sepsis Recent Fever Within 48 Hours Sepsis New/Unexplained Change in Mental Status Sepsis Action Taken by Nursing 02/08/21 14:48 02/08/21 15:00 02/08/21 15:15 Temperature Temperature Source Pulse Rate 86 82 Pulse Rate from SpO2 Sensor 89 89 80 Pulse Rhythm Respiratory Rate 18 20 Respiratory Effort / Characteristics Respiratory Depth Respiratory Pattern Blood Pressure 106/69 122/59 L 120/71 Blood Pressure Mean 81 80 87 Pulse Oximetry 100 100 99 Oxygen Delivery Method Sepsis Recent Fever Within 48 Hours Sepsis New/Unexplained Change in Mental Status Sepsis Action Taken by Nursing 02/08/21 15:30 Temperature Temperature Source Pulse Rate 83 Pulse Rate from SpO2 Sensor Pulse Rhythm Respiratory Rate 20 Respiratory Effort / Characteristics Respiratory Depth Respiratory Pattern Blood Pressure 123/64 Blood Pressure Mean 83 Pulse Oximetry 100 Oxygen Delivery Method Sepsis Recent Fever Within 48 Hours Sepsis New/Unexplained Change in Mental Status Sepsis Action Taken by Nursing Physical Exam GENERAL: She is oriented to person, place, and time. She appears well-developed and well-nourished. She does not appear distressed. HENT: Exam performed. -Head: Normocephalic and atraumatic. -Right Ear: External ear normal. No mastoid tenderness. -Left Ear: External ear normal. No mastoid tenderness. -Mouth/Throat: The oropharynx is clear and moist. No trismus in the jaw. No dental abscesses or uvula swelling. No oropharyngeal exudate or tonsillar abscesses. EYES: Conjunctivae and EOM are normal. Pupils are equal, round, and reactive to light. Right eye exhibits no discharge. Left eye exhibits no discharge. No scleral icterus. NECK: Normal range of motion. Neck supple. No JVD present. No spinous process tenderness present. No carotid bruit present. No rigidity. No tracheal deviation and normal range of motion present. No Brudzinski's sign and no Kernig's sign noted. CV: Tachycardic rate, irregular rhythm, normal heart sounds and intact distal pulses. There is no peripheral edema. Palpable radial pulses bue. PULM/CHEST: Effort normal and breath sounds normal. No respiratory distress. No stridor. She has no wheezes. She has no rales. -Chest Wall: She exhibits no tenderness. ABD: The abdomen is soft. Bowel sounds are normal. She has no distension. No mass is present. There is no tenderness. There is no rebound, no guarding, no Garg's sign and no tenderness at McBurney's point. Rovsig negative Rectal: Bright red blood per rectum coming out in clots. MUSC/SKEL: Normal range of motion. There is no peripheral edema, tenderness or deformity. LYMPH: No cervical adenopathy. NEURO: She is alert and oriented to person, place, and time. She has normal strength. No cranial nerve deficit or sensory deficit. Coordination and gait normal. GCS eye subscore is 4. GCS verbal subscore is 5. GCS motor subscore is 6. Cerebellar tests wnl. SKIN: Pale PSYCH: She has a normal mood and affect. Behavior is normal. Judgment and thought content normal. Course Course 1356: The patient was evaluated in room C9. A complete history and physical exam was performed Cardiac monitoring: An order was placed for continuous cardiac monitoring. The monitor shows a rate of 100 with atrial fibrilation rhythm 2 large-bore IVs were placed on the patient. Patient is having copious amounts of bright red blood clots from her rectum. IV fluid resuscitation was started on the patient. EMR reviewed. Patient was just discharged from the hospital yesterday for back pain. Patient is on Coumadin. 1445: Vital signs stable with fluid resuscitation. Patient's hemoglobin is 7.8. INR is 6. Vitamin K ordered IV. On unit packed red blood cells ordered for the patient.EMR reviewed. Yesterday the patient had a hemoglobin of 10.5 and 2 days ago patient had a hemoglobin of 11.4. Patient's INR yesterday was 4.2 and the day before was 3.4. 1530: Imaging shows no acute traumatic injury. Patient will be admitted to the [facility] service Dr. Hester's team notified. Administered Medications Discontinued Medications Sodium Chloride (Nss 1000ml) 1,000 mls @ 999 mls/hr IV .Q1H1M ONE Stop: 02/08/21 14:56 Last Infusion: 02/08/21 16:02 Dose: 0 mls/hr Documented by: [id number] Admin: 02/08/21 14:50 Dose: 999 mls/hr Documented by: [id number] Sodium Chloride (Nss 1000ml) 1,000 mls @ 999 mls/hr IV .Q1H1M ONE Stop: 02/08/21 15:01 Last Infusion: 02/08/21 16:02 Dose: 0 mls/hr Documented by: [id number] Admin: 02/08/21 14:50 Dose: 999 mls/hr Documented by: [id number] Phytonadione 5 mg/ Sodium (Chloride) 50.5 mls @ 101 mls/hr IV ONE ONE Stop: 02/08/21 15:13 Last Infusion: 02/08/21 15:35 Dose: 0 mls/hr Documented by: [id number] Admin: 02/08/21 15:04 Dose: 101 mls/hr Documented by: [id number] Pantoprazole Sodium 80 mg/ (Dextrose) 120 mls @ 400 mls/hr IV NOW ONE Stop: 02/08/21 16:17 Last Admin: 02/08/21 16:45 Dose: 400 mls/hr Documented by: Ioversol (Ioversol 100ml) 94 ml IV ONCE ONE Stop: 02/08/21 14:46 Last Admin: 02/08/21 14:45 Dose: 94 ml Documented by: [id number] Critical Care Time Critical Care Time: Yes Total Critical Care Time: 47 I have personally spent greater than 47 minutes of critical care time in the direct management of this patient. This includes bedside care, interpretation of diagnostic studies, and testing, discussion with consultants, patient, and family members, and other required patient management activities. This 47 minutes is in excess of all separately billable procedures. Medical Decision Making Laboratory Data Result diagrams: 02/08/21 13:59 02/08/21 13:59 Lab Results 02/08/21 02/08/21 02/08/21 Range/Units 13:59 13:59 13:59 WBC 11.12 H (4.8-10.8) K/uL RBC 2.77 L (4.2-5.4) M/uL Hgb 7.8 L (12.0-16.0) g/dL POC Hgb (12.0-16.0) g/dl Hct 23.7 L (37-47) % POC Hct (37-47) % MCV 85.6 (80-100) fL MCH 28.2 (25-34) pg MCHC 32.9 (32-36) g/dL RDW Std Deviation 47.9 H (36.4-46.3) fL RDW Coeff of Donald 15.2 H (11.5-14.5) % Plt Count 383 (130-400) K/uL MPV 9.0 (7.4-10.4) fL Immature Gran % (Auto) 1.1 % Neut % (Auto) 79.1 % Lymph % (Auto) 10.2 % Barron % (Auto) 9.5 % Eos % (Auto) 0.0 % Baso % (Auto) 0.1 % Neut # (Auto) 8.80 H (1.4-6.5) K/uL Lymph # (Auto) 1.13 L (1.2-3.4) K/uL Barron # (Auto) 1.06 H (0.11-0.59) K/uL Eos # (Auto) 0.00 (0-0.5) K/uL Baso # (Auto) 0.01 (0-0.2) K/uL Immature Gran # (Auto) 0.12 H (0.00-0.02) K/uL Poikilocytosis Present PT 53.1 H (9.0-12.0) Seconds INR 6.0 H* (0.9-1.1) APTT 31.4 H (21.0-31.0) Seconds PTT Ratio 1.2 POC Sodium (135-144) mmol/L Sodium 140 (136-145) mmol/L POC Potassium (3.3-5.0) mmol/L Potassium 3.6 (3.5-5.1) mmol/L POC Chloride (101-112) mmol/L Chloride 106 (98-107) mmol/L Carbon Dioxide 24 (21-32) mmol/L POC Total CO2 (24-31) mmol/L Anion Gap 10.0 (3-11) POC Anion Gap (16-25) mmol/L POC BUN (7-18) mg/dl BUN 61 H (7-18) mg/dl Creatinine 1.16 (0.6-1.2) mg/dl POC Creatinine (0.6-1.3) mg/dl Est Cr Clr Drug Dosing Not Reportable Est GFR ( Amer) 53.7 Est GFR (Non-Af Amer) 46.3 BUN/Creatinine Ratio 52.6 H (10-20) Glucose 252 H (70-99) mg/dl POC Glucose (other) (70-99) mg/dl Calcium 8.1 L (8.5-10.1) mg/dl POC Ioniz Calcium Crys (1.12-1.32) mmol/l Magnesium 2.0 (1.8-2.4) mg/dl Total Bilirubin 0.7 (0.2-1) mg/dl Direct Bilirubin 0.2 (0-0.2) mg/dl AST 144 H (15-37) U/L ALT 91 H (12-78) U/L Alkaline Phosphatase 125 H (45-117) U/L Total Creatine Kinase (26-192) U/L Total Protein 6.0 L (6.4-8.2) gm/dl Albumin 2.6 L (3.4-5.0) gm/dl Lipase 197 (73-393) U/L COVID-19 Eval Order SARS-CoV-2, RNA, NAAT (NEGATIVE) Blood Type Antibody Screen Crossmatch 02/08/21 02/08/21 02/08/21 Range/Units 13:59 13:59 14:05 WBC (4.8-10.8) K/uL RBC (4.2-5.4) M/uL Hgb (12.0-16.0) g/dL POC Hgb 7.5 L (12.0-16.0) g/dl Hct (37-47) % POC Hct 22 L (37-47) % MCV (80-100) fL MCH (25-34) pg MCHC (32-36) g/dL RDW Std Deviation (36.4-46.3) fL RDW Coeff of Donald (11.5-14.5) % Plt Count (130-400) K/uL MPV (7.4-10.4) fL Immature Gran % (Auto) % Neut % (Auto) % Lymph % (Auto) % Barron % (Auto) % Eos % (Auto) % Baso % (Auto) % Neut # (Auto) (1.4-6.5) K/uL Lymph # (Auto) (1.2-3.4) K/uL Barron # (Auto) (0.11-0.59) K/uL Eos # (Auto) (0-0.5) K/uL Baso # (Auto) (0-0.2) K/uL Immature Gran # (Auto) (0.00-0.02) K/uL Poikilocytosis PT (9.0-12.0) Seconds INR (0.9-1.1) APTT (21.0-31.0) Seconds PTT Ratio POC Sodium 139 (135-144) mmol/L Sodium (136-145) mmol/L POC Potassium 3.7 (3.3-5.0) mmol/L Potassium (3.5-5.1) mmol/L POC Chloride 102 (101-112) mmol/L Chloride (98-107) mmol/L Carbon Dioxide (21-32) mmol/L POC Total CO2 25 (24-31) mmol/L Anion Gap (3-11) POC Anion Gap 18.0 (16-25) mmol/L POC BUN 57 H (7-18) mg/dl BUN (7-18) mg/dl Creatinine (0.6-1.2) mg/dl POC Creatinine 1.0 (0.6-1.3) mg/dl Est Cr Clr Drug Dosing Est GFR ( Amer) Est GFR (Non-Af Amer) BUN/Creatinine Ratio (10-20) Glucose (70-99) mg/dl POC Glucose (other) 247 H (70-99) mg/dl Calcium (8.5-10.1) mg/dl POC Ioniz Calcium Crys 1.15 (1.12-1.32) mmol/l Magnesium (1.8-2.4) mg/dl Total Bilirubin (0.2-1) mg/dl Direct Bilirubin (0-0.2) mg/dl AST (15-37) U/L ALT (12-78) U/L Alkaline Phosphatase (45-117) U/L Total Creatine Kinase 29 (26-192) U/L Total Protein (6.4-8.2) gm/dl Albumin (3.4-5.0) gm/dl Lipase (73-393) U/L COVID-19 Eval Order SARS-CoV-2, RNA, NAAT (NEGATIVE) Blood Type O Positive Antibody Screen POSITIVE A Crossmatch See Detail 02/08/21 02/08/21 Range/Units 16:10 16:10 WBC (4.8-10.8) K/uL RBC (4.2-5.4) M/uL Hgb (12.0-16.0) g/dL POC Hgb (12.0-16.0) g/dl Hct (37-47) % POC Hct (37-47) % MCV (80-100) fL MCH (25-34) pg MCHC (32-36) g/dL RDW Std Deviation (36.4-46.3) fL RDW Coeff of Donald (11.5-14.5) % Plt Count (130-400) K/uL MPV (7.4-10.4) fL Immature Gran % (Auto) % Neut % (Auto) % Lymph % (Auto) % Barron % (Auto) % Eos % (Auto) % Baso % (Auto) % Neut # (Auto) (1.4-6.5) K/uL Lymph # (Auto) (1.2-3.4) K/uL Barron # (Auto) (0.11-0.59) K/uL Eos # (Auto) (0-0.5) K/uL Baso # (Auto) (0-0.2) K/uL Immature Gran # (Auto) (0.00-0.02) K/uL Poikilocytosis PT (9.0-12.0) Seconds INR (0.9-1.1) APTT (21.0-31.0) Seconds PTT Ratio POC Sodium (135-144) mmol/L Sodium (136-145) mmol/L POC Potassium (3.3-5.0) mmol/L Potassium (3.5-5.1) mmol/L POC Chloride (101-112) mmol/L Chloride (98-107) mmol/L Carbon Dioxide (21-32) mmol/L POC Total CO2 (24-31) mmol/L Anion Gap (3-11) POC Anion Gap (16-25) mmol/L POC BUN (7-18) mg/dl BUN (7-18) mg/dl Creatinine (0.6-1.2) mg/dl POC Creatinine (0.6-1.3) mg/dl Est Cr Clr Drug Dosing Est GFR ( Amer) Est GFR (Non-Af Amer) BUN/Creatinine Ratio (10-20) Glucose (70-99) mg/dl POC Glucose (other) (70-99) mg/dl Calcium (8.5-10.1) mg/dl POC Ioniz Calcium Crys (1.12-1.32) mmol/l Magnesium (1.8-2.4) mg/dl Total Bilirubin (0.2-1) mg/dl Direct Bilirubin (0-0.2) mg/dl AST (15-37) U/L ALT (12-78) U/L Alkaline Phosphatase (45-117) U/L Total Creatine Kinase (26-192) U/L Total Protein (6.4-8.2) gm/dl Albumin (3.4-5.0) gm/dl Lipase (73-393) U/L COVID-19 Eval Order Covid19 [facility]Now [facility] SARS-CoV-2, RNA, NAAT NEGATIVE (NEGATIVE) Blood Type Antibody Screen Crossmatch Imaging Data Radiologist's Impression: XR pelvis 1-2V routine CLINICAL HISTORY: Fall. Pelvic pain. COMPARISON STUDY: Pelvis and right hip 02/03/2021. FINDINGS: The bones are osteopenic. No fracture or dislocation within the pelvis or hips. The sacrum appears intact. There are surgical clips within the deep pelvis. Soft tissues are unremarkable. IMPRESSION: No fracture or dislocation within the pelvis or hips. ACT 112: Negative or not required by law. Electronically signed by: Roverto Aguilar M.D. 02/08/2021 3:38 PM Dictated: 02/08/21 1537 Transcribed: 02/08/[address] DOSE: HISTORY: fall TECHNIQUE: Multiaxial CT images of the head were performed without the use of intravenous contrast. Automated exposure control was utilized for this study. A dose lowering technique was utilized adhering to the principles of ALARA. Comparison: Head CT 02/15/2020. Findings: Small retention cyst within the right maxillary sinus. The mastoid air cells are clear. The calvarium and skull base are intact. There is no mass, hematoma, midline shift, acute infarct. White matter hypodensity is nonspecific but suggestive of microvascular ischemic change. The ventricles and sulci demonstrate mild age-related involutional changes. Impression: No acute intracranial abnormality. ACT 112: Negative or not required by law. Electronically signed by: Roverto Aguilar M.D. 02/08/2021 3:00 PM Dictated: 02/08/21 1451 Transcribed: 02/08/21 1451 XR chest 1V portable HISTORY: Fall. COMPARISON: Chest 02/03/2021. FINDINGS: No pneumothorax. No pleural effusions. The heart remains enlarged. There are poststernotomy changes and cardiac valve prostheses are again noted. No new focal lung consolidations to suggest pneumonia. No evidence for pulmonary edema. Small linear density at the left lung base persists and favors subsegmental atelectasis. IMPRESSION: No significant change compared to the prior study. No acute process. ACT 112: Negative or not required by law. Electronically signed by: Roverto Aguilar M.D. 02/08/2021 3:29 PM Dictated: 02/08/21 1528 Transcribed: 02/08/[address] DOSE: 2430.02 mGy.cm HISTORY: Fall. TECHNIQUE: Multiaxial CT images of the cervical spine were performed and reformatted in the sagittal and coronal plane without the use of contrast. A dose lowering technique was utilized adhering to the principles of ALARA. COMPARISON: Neck CTA 02/15/2020. FINDINGS: No fractures. 2 mm of anterolisthesis of C6 on C7. This is likely due to long-standing degenerative change. There are severe disc space narrowing from C3 through C7 with small endplate osteophytes. Prevertebral soft tissues and the C1-C2 interval are intact. No pneumothorax. Redemonstration of the left-sided multinodular goiter. This is similar to the prior study and results in mild right tracheal deviation. IMPRESSION: No fractures within the cervical spine. ACT 112: Negative or not required by law. Electronically signed by: Roverto Aguilar M.D. 02/08/2021 3:04 PM Dictated: 02/08/21 1500 Transcribed: 02/08/21 [address] WITH IV CONTRAST CT DOSE: HISTORY: Fall. GI bleed. Low back pain. TECHNIQUE: Multiaxial CT images of the abdomen and pelvis were performed following the use of intravenous contrast. A dose lowering technique was utilized adhering to the principles of ALARA. COMPARISON STUDY: Abdomen and pelvis CT 01/02/2021. FINDINGS: Bibasilar linear densities consistent with subsegmental atelectasis. The heart remains mildly enlarged. Poststernotomy changes and cardiac valve prostheses are again noted. No pneumoperitoneum. No pneumatosis. Old moderate superior endplate compression deformities at L2 and L4 are not significantly changed. There is a moderate superior endplate compression fracture at L1 demonstrating 50% loss of height and 3 mm of retropulsion of the posterior superior corner. This demonstrates sclerotic edges and therefore favors an acute on chronic injury. There is mild paravertebral edema at L1. Subtle nodular contour to the liver consistent with cirrhosis. No hepatic masses. Prior cholecystectomy and splenectomy. A few small splenic nodules remain within the left upper quadrant. There is also evidence for prior gastric bypass. No retroperitoneal lymphadenopathy. Normal caliber abdominal aorta. Multiple bilateral renal hypodense lesions are again noted. The majority of these are subcentimeter in size and therefore too small to characterize. Dominant hypodense lesion within the upper pole the left kidney measures 2.8 cm. These statistically represent cysts. There is a punctate nonobstructing stone within the upper pole the right kidney. No ureteral stones. No hydronephrosis. Prior hysterectomy. The bladder is unremarkable. Moderate well-formed stool seen within the colon and rectum. A few colonic diverticula. No evidence for acute diverticulitis. No bowel wall thickening or obstruction. Normal appendix. The pancreas remains atrophic. IMPRESSION: 1. An acute on chronic moderate superior endplate compression fracture at L1. This demonstrates 50% loss of height and 3 mm of retropulsion. No significant central canal narrowing. 2. No bowel wall thickening or obstruction. 3. Postoperative changes as described above. 4. Right-sided nephrolithiasis. No hydronephrosis. ACT 112: Negative or not required by law. Electronically signed by: Roverto Aguilar M.D. 02/08/2021 3:15 PM Dictated: 02/08/21 1505 Transcribed: 02/08/21 1505 ECG Data Indication: + other (GIB) Rate (beats per minute): 104 Rhythm: + atrial fibrillation ECG Intervals/blocks: + Normal QRS and + Normal QT-c ECG ST segments: + Normal ST segments MDM Narrative 1356: The patient was evaluated in room C9. A complete history and physical exam was performed Cardiac monitoring: An order was placed for continuous cardiac monitoring. The monitor shows a rate of 100 with atrial fibrilation rhythm 2 large-bore IVs were placed on the patient. Patient is having copious amounts of bright red blood clots from her rectum. IV fluid resuscitation was started on the patient. EMR reviewed. Patient was just discharged from the hospital yesterday for back pain. Patient is on Coumadin. 1445: Vital signs stable with fluid resuscitation. Patient's hemoglobin is 7.8. INR is 6. Vitamin K ordered IV. On unit packed red blood cells ordered for the patient.EMR reviewed. Yesterday the patient had a hemoglobin of 10.5 and 2 days ago patient had a hemoglobin of 11.4. Patient's INR yesterday was 4.2 and the day before was 3.4. 1530: Imaging shows no acute traumatic injury. Patient will be admitted to the [facility] service Dr. Kacie's team notified. Impression & Plan GIB (gastrointestinal bleeding) Discharge Plan Visit Data Chief Complaint: GI Bleed ED Provider: Jasper Saeed Discharge Problem: GIB (gastrointestinal bleeding) Patient Disposition: Being Evaluated by Hospitalist Forms Stand Alone Forms: My [facility] Prescriptions Prescriptions: No Action (DME) BD Eclipse 25 gauge x 1" needle See Rx Instructions .ROUTE .MEDSUPPLY Qty: 3 RF: 3 warfarin 2.5 mg tablet 2.5 mg PO [id number] RF: 0 oxycodone-acetaminophen [Percocet] 5-325 mg tablet 1 tab PO Q6H PRN (Reason: pain) Qty: 14 RF: 0 folic acid 1 mg tablet 1 mg PO QAM RF: 0 multivitamin Tablet 1 tab PO QAM RF: 0 metoprolol succinate 50 mg tablet extended release 24 hr 50 mg PO BID RF: 0 metolazone 5 mg tablet 5 mg PO DIRECTED PRN (Reason: Weight Gain) RF: 0 cyanocobalamin (vitamin B-12) 1,000 mcg/mL solution 1,000 mcg IM Q4WK RF: 0 warfarin 5 mg tablet 5 mg PO WK RF: 0 bumetanide 1 mg tablet 1 mg PO DIRECTED PRN (Reason: Weight Gain) RF: 0 lidocaine 5 % Adhesive Patch,Medicated 1 patch transdermal QAM Qty: 20 RF: 0 tramadol 50 mg tablet 50 mg PO UD PRN (Reason: Pain) RF: 0 prednisone 10 mg tablet 10 mg PO .TAPER RF: 0 atorvastatin 10 mg tablet 10 mg PO QAM RF: 0 potassium chloride 20 mEq/15 mL liquid 60 meq PO QAM RF: 0 Referrals Referrals: Fernie Rodriguez MD [Primary Care Provider] - Discharge Problem: GIB (gastrointestinal bleeding) Qualifiers: GI bleed type/associated pathology: unspecified gastrointestinal hemorrhage type Qualified Code(s): K92.2 - Gastrointestinal hemorrhage, unspecified
[2021-02-08] MEDS: PANTOprazole 40 MG in DEXTROSE 5% 100 ML IV SCH ×2 (17:31→20:54)
[2021-02-08 19:37] LABS: Hematocrit (blood only) 17.2 % (37-47); Hemoglobin 5.6 g/dL (12.0-16.0)
[2021-02-08] MEDS ORDERED: ACETAMINOPHEN 1,000 MG/100 ML VIAL IV PRN (20:26)
[2021-02-08] MEDS ORDERED: PHARMACY GLYCEMIC MGMT CONSULT PRN (20:37)
[2021-02-08] MEDS ORDERED: GLUCOSE 10 TABS/TUBE PO PRN (20:45)
[2021-02-08] MEDS ORDERED: GLUCAGON FOR INJ 1 MG VIAL IM PRN (20:45)
[2021-02-08] MEDS ORDERED: CARBOHYDRATES FOR HYPOGLYCEMIA PO PRN (20:45)
[2021-02-08] MEDS ORDERED: DEXTROSE 50% 50 ML SYRINGE IV PRN (20:45)
[2021-02-08] MEDS ORDERED: GLUCOSE 40% GEL 15 GM TUBE PO PRN (20:45)
[2021-02-08] MEDS: POTASSIUM CHLORIDE 30 MEQ in SODIUM CHLORIDE 0.9% 1000ML 1,000 ML IV SCH (20:53)
[2021-02-08] MEDS: METOPROLOL SUCC 50MG EXT REL TAB PO SCH (21:13)
[2021-02-08] MEDS: INSULIN ASPART 100 UNITS/ML 3 ML PEN SC SCH (21:14)
--- NOTE | 2021-02-08 21:25 | Gastrointestinal Consultation ---
Date of Consultation February 08, 2021 Assessment & Plan (1) Syncope: (2) History of Chris-en-Y gastric bypass: (3) Hematemesis: (4) Acute blood loss anemia: I discussed this case with Dr. Hester of the Hospitalist team as well as Dr. Martines of Anesthesia. Due to her hemodynamic stability at this time, I would like to have her INR further reversed, for her to receive 2 u PRBC, and continue on the Pantoprazole gtt. prior to proceeding with EGD. If her condition changes overnight, or if she has further overt GI bleeding we can consider EGD tonight She will be kept NPO after midnight She will continue Pantoprazole 8 mg/hour Transfuse up to Hgb of 8 if possible and if blood products are available. EGD in AM for further evaluation. History of Present Illness Reason for Consultation: Hematemesis, Acute Blood loss anemia Attending Physician: Tunde Hester MD History of Present Illness Eden Wagner is a 75 yo CF with an extensive PMHx that includes history of Chris-En-Y gastric bypass, chronic A-fib, Aortic and Mitral valve replacements, chronic coumadin therapy, and history of GI Bleeding. She was discharged from the hospital on 02/07, following an evaluation for back and leg pain. While at home, she had 2 episodes of syncope and a large black stool. Upon arrival to the ER, she had another black tarry stool, which was followed by an episode of hematemesis. She subsequently returned to the ER, and was noted to have a significant decline in her Hgb from 10.5 to 7.8. She was also noted to have an INR of 6.0. She subsequently was given IVF, Vitamin K to reverse her INR, and placed on Pantoprazole gtt. I spoke with Dr. Hester of the Hospitalist service and he notified me that she has Antibodies which make blood transfusion problematic. Blood products were being sent from [facility]. At the time I saw her, she was sitting up in bed and felt better following the administration of IVF. She denied any lightheadedness or dizziness. A repeat Hgb this evening showed further decline to 5.6. She denies any abdominal pain, fevers, chills, nausea, or further hematemesis since this morning. Review of her medical record shows that she had a GI bleed in April 2020, for which she underwent an EGD, and she was noted to have an anastomotic ulcer from her prior Chris-En-Y. There was no obvious bleeding source, but there was old blood noted in the GI tract. She also underwent a colonoscopy on the same day, but it was limited due to an extremely poor bowel prep, and was aborted after reaching the sigmoid colon. She has no further complaints at present. Allergies Allergy/AdvReac Type Severity Reaction Status Date / Time iron dextran complex Allergy Severe RASH Verified 02/08/21 15:13 choline salicylate Allergy Intermediate TRILISATE-r Verified 02/08/21 15:13 nay magnesium salicylate Allergy Intermediate TRILISATE-r Verified 02/08/21 15:13 nay Trilisate Allergy Intermediate TRILISATE-r Verified 11/05/16 17:37 nay mometasone furoate Allergy Unknown Pt has no Verified 02/08/21 15:13 recollection of this Ferric Oxide Allergy Severe VENOFER Uncoded 02/08/21 15:13 INFUSION-RASH,WEAKNESS,BLEEDING-HOSPITALIZED Home Medications Medication Instructions Recorded Confirmed Type folic acid 1 mg tablet 1 mg PO QAM 05/06/20 02/08/21 History multivitamin 1 tab PO QAM 05/06/20 02/08/21 History BD Eclipse 25 gauge x 1" needle #3 ea NS 07/02/20 01/24/21 Rx metoprolol succinate 50 mg 50 mg PO BID tab 07/15/20 02/08/21 History tablet,extended release 24 hr warfarin 2.5 mg tablet 2.5 mg PO 6XWK 09/19/20 02/08/21 History bumetanide 1 mg PO DIRECTED PRN 01/02/21 02/08/21 History cyanocobalamin (vitamin B-12) 1,000 mcg IM Q4WK 01/02/21 02/08/21 History metolazone 5 mg PO DIRECTED PRN 01/02/21 02/08/21 History warfarin 5 mg PO WK 01/02/21 02/08/21 History oxycodone-acetaminophen 5 mg-325 1 tab PO Q6H PRN #14 tab 01/27/21 02/08/21 Rx mg tablet lidocaine 1 patch TRANSDERMAL QAM #20 ea 02/07/21 02/08/21 Rx atorvastatin 10 mg PO QAM 02/08/21 02/08/21 History potassium chloride 60 meq PO QAM 02/08/21 02/08/21 History prednisone 10 mg PO .TAPER 02/08/21 02/08/21 History tramadol 50 mg PO UD PRN 02/08/21 02/08/21 History Patient History Medical History Abnormal CT scan, chest Acute blood loss anemia Anastomotic ulcer S/P gastric bypass ASCVD (arteriosclerotic cardiovascular disease) Carotid stenosis, asymptomatic left Carpal tunnel syndrome Cervical radiculopathy Chronic diastolic (congestive) heart failure Diabetic peripheral neuropathy associated with type 2 diabetes mellitus Elevated alkaline phosphatase level Esophageal candidiasis Eustachian tube dysfunction Hearing loss HTN (hypertension) Hyperlipidemia Hypertension Hypokalemia MCFP (current) use 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 Mitral regurgitation Nontoxic multinodular goiter Obesity Obstructive sleep apnea Osteoporosis Pericardial effusion Permanent atrial fibrillation Personal history of diabetic foot ulcer Spinal stenosis, lumbar region with neurogenic claudication Severe L4-5 Venous insufficiency (chronic) (peripheral) Vitamin B12 deficiency Vitamin D deficiency Surgical History H/O gastric bypass H/O hernia repair H/O splenectomy H/O splenectomy History of esophagogastroduodenoscopy (EGD) History of knee replacement bilateral History of total abdominal hysterectomy Hx of appendectomy Hx of cholecystectomy Hx of tonsillectomy S/P aortic valve replacement (2011) S/P gastric bypass S/P mitral valve replacement (2011) S/P pericardial window creation (2011) Status post panniculectomy Family History Mother Congestive heart failure Diabetes Hypertension Cardiac disorder Brother Diabetes Polycythemia Pharyngeal neoplasm Pulmonary embolism Father Lung cancer Acute myocardial infarction Hypertension Cardiac disorder Myocardial infarction Denies family history of Ovarian cancer Prostate cancer Crohn's disease Breast cancer Colorectal cancer Social History Smoking Status: Never smoker Second Hand Exposure: No; Hx Alcohol Use: Yes Alcohol type: hard liquor Alcohol type Comment: occassional mixed drink Hx Substance Use: No Preferred Language: Bahraini Communication Ability: Effective Visual Impairment: No Limitations Hearing Ability: Normal Home Care Scheduler Required: No Beliefs That Will Affect Care: None marital status: Current Living Situation: Spouse current occupational status: retired How many Children do You have: 1 Other Information That Helps Us Care for You: No Feels Safe at Home: Yes Safety Concerns: Feels Safe At This Time Childhood Exposure to Second-Hand Smoke: No Diet Comment: pt watches diet intake s/p gastric bypass surgery caffeine: Yes during the past year weight has: remained stable Dental Care, Regularly: Yes Physical Activity Frequency: 3-4 Times per Week Seatbelt Use: always Sunscreen Use: Yes Assistive Devices: Glasses and Walker Review of Systems Review of Systems: All systems reviewed & are unremarkable except as noted in HPI & below Physical Exam Constitutional: + ill appearing and + obese; no acute distress Eyes: + anicteric sclerae ENMT: external ear and nose normal, oropharynx normal Neck: trachea midline, no thyromegaly Respiratory: normal respiratory effort, lungs clear to auscultation Cardiovascular: Rate/Rhythm: + irregularly irregular Gastrointestinal (Abdomen): normal bowel sounds, soft, nontender, no hepatosplenomegaly Skin: + pallor; no rashes Psychiatric: A+Ox3, euthymic affect Results & Data ([facility]) Vital Signs (Past 12 Hours) Vital Signs Temp Pulse Pulse Resp BP BP Pulse Ox 02/08/21 19:24 37.0 C 96 H 18 111/70 99 02/08/21 18:35 91 H 12 104/59 L 99 02/08/21 18:30 91 H 12 104/59 L 99 02/08/21 18:15 92 H 21 99/62 L 99 02/08/21 18:07 24 95/62 L 100 02/08/21 17:45 92 H 25 H 114/85 02/08/21 17:30 108 H 28 H 94/58 L 02/08/21 17:16 27 H 105/68 100 02/08/21 17:00 85 24 109/64 100 02/08/21 16:45 132/70 100 02/08/21 16:31 105 H 19 129/59 L 100 02/08/21 16:15 93 H 17 134/91 100 02/08/21 16:00 77 20 144/77 H 100 02/08/21 15:45 93 H 16 132/80 100 02/08/21 15:30 83 20 123/64 100 02/08/21 15:15 82 20 120/71 99 02/08/21 15:00 86 18 122/59 L 100 02/08/21 14:48 106/69 100 02/08/21 14:30 115/59 L 02/08/21 14:15 87 24 103/62 99 02/08/21 14:08 97 H 20 115/67 100 02/08/21 14:03 108 H 18 98 02/08/21 13:53 110 H 18 102/71 99 02/08/21 13:40 36.5 C 108 H 18 102/71 98 PG Care Time/CCT Total # of Minutes Spent Total Time Spent with Patient: Total time spent is greater than 50% in coordination of care (as documented) at patient's floor/unit and/or counseling patient: Coding Level of Care Code 64408 Initial Inpt Care Lvl 3 Diagnoses Syncope R55 History of Chris-en-Y gastric bypass Z98.84 Hematemesis K92.0 Acute blood loss anemia D62 Time Spent (min) 90 Comment Discussed case with Hospitalist and Anesthesiologist. Chart review of prior EGD/Colon
[2021-02-09] MEDS ORDERED: SODIUM CHLORIDE 0.9% 250 ML IV PRN ×3 (00:04→08:10)
[2021-02-09] MEDS: INSULIN ASPART 100 UNITS/ML 3 ML PEN SC SCH ×4 (01:34→18:48)
[2021-02-09 01:58] LABS: Albumin Level 2.2 gm/dl (3.4-5.0); BUN Creatinine Ratio 71.3 (10-20); Calcium 7.3 mg/dl (8.5-10.1); Creatinine Clr Calc Pharmacy 68.5 ml/min; Potassium 3.9 mmol/L (3.5-5.1)
[2021-02-09 02:03] LABS: Hematocrit (blood only) 16.7 % (37-47); Hemoglobin 5.6 g/dL (12.0-16.0); Mean Corpuscular Hemoglobin 28.4 pg (25-34); Mean Corpuscular Hgb Conc 33.5 g/dL (32-36); Mean Corpuscular Volume 84.8 fL (80-100); Mean Platelet Volume 9.3 fL (7.4-10.4); Platelet Count 293 K/uL (130-400); RDW Coefficient of Variation 15.4 % (11.5-14.5); RDW Standard Deviation 48.1 fL (36.4-46.3); Red Blood Count 1.97 M/uL (4.2-5.4); White Blood Count 14.44 K/uL (4.8-10.8)
[2021-02-09 02:05] LABS: Basophils # (auto) 0.01 K/uL (0-0.2); Basophils % (auto) 0.1 %; Echinocytes 1+; Immature Granulocytes # (auto) 0.12 K/uL (0.00-0.02); Immature Granulocytes % (auto) 0.8 %; Lymphocytes # (auto) 1.94 K/uL (1.2-3.4); Lymphocytes % (auto) 13.4 %; Monocytes # (auto) 1.74 K/uL (0.11-0.59); Neutrophils # (auto) 10.63 K/uL (1.4-6.5); Neutrophils % (auto) 73.7 %
[2021-02-09 02:10] LABS: Albumin Globulin Ratio 0.9 (0.9-2); Bilirubin,Total 0.6 mg/dl (0.2-1); Globulin 2.5 gm/dl (2.5-4.0); Total Protein 4.7 gm/dl (6.4-8.2)
[2021-02-09] MEDS: PANTOprazole 40 MG in DEXTROSE 5% 100 ML IV SCH ×5 (02:49→22:12)
[2021-02-09] MEDS: POTASSIUM CHLORIDE 30 MEQ in SODIUM CHLORIDE 0.9% 1000ML 1,000 ML IV SCH ×3 (05:59→22:11)
[2021-02-09 06:15] LABS: Hemoglobin 5.5 g/dL (12.0-16.0)
[2021-02-09 06:18] LABS: INR 1.5 (0.9-1.1); Prothrombin Time 14.6 Seconds (9.0-12.0)
--- NOTE | 2021-02-09 08:43 | Gastroenterology Progress Note ---
Date of Service February 09, 2021 Assessment & Plan (1) Supratherapeutic INR: (2) History of Chris-en-Y gastric bypass: (3) Hematemesis: (4) Acute blood loss anemia: No overt GI bleeding overnight She did not receive blood transfusions overnight, and therefore, we will hold on performing EGD until she has been transfused She remains hemodynamically stable Continue Pantoprazole gtt. Continue to hold Coumadin Plan on EGD on 02/10/21 Admission and Anticipated Discharge Date Admission Date: February 08, 2021 Subjective Feeling much better today. Still having some black stool, however, H/H is low, but stable. She denies any further hematemesis. She further denies any lightheadedness or dizziness. Nursing reports that she has remained hemodynamically stable throughout the night. Her blood products just arrived from [place], [place], this AM, and she has not had a blood transfusion as of this time. Physical Exam Constitutional: + ill appearing (chronic); no acute distress Eyes: + anicteric sclerae Respiratory: normal respiratory effort, lungs clear to auscultation Cardiovascular: Rate/Rhythm: + irregularly irregular Gastrointestinal (Abdomen): normal bowel sounds, soft, nontender, no hepatosplenomegaly Psychiatric: A+Ox3, euthymic affect Results & Data Results & Data ([facility]) Vital Signs (Past 12 Hours) Vital Signs Temp Pulse Resp BP Pulse Ox 02/09/21 07:11 36.5 C 91 H 16 132/60 100 02/09/21 03:55 36.6 C 91 H 17 127/66 100 02/08/21 23:41 36.6 C 103 H 20 103/57 L 100 PG Care Time/CCT Total # of Minutes Spent Total Time Spent with Patient: Total time spent is greater than 50% in coordination of care (as documented) at patient's floor/unit and/or counseling patient: Coding Level of Care Code 33764 Subseq Hosp Care Lvl 3 Diagnoses Supratherapeutic INR R79.1 History of Chris-en-Y gastric bypass Z98.84 Hematemesis K92.0 Acute blood loss anemia D62
[2021-02-09] MEDS: LIDOCAINE 5% 1 PATCH TD SCH (10:01)
[2021-02-09] MEDS: METOPROLOL SUCC 50MG EXT REL TAB PO SCH ×2 (10:10→21:11)
--- NOTE | 2021-02-09 10:10 | Electrocardiogram Report ---
Test Reason : Blood Pressure : / mmHG Vent. Rate : 104 BPM Atrial Rate : 072 BPM P-R Int : 000 ms QRS Dur : 088 ms QT Int : 376 ms P-R-T Axes : 000 013 024 degrees QTc Int : 494 ms Atrial fibrillation with rapid ventricular response Anteroseptal infarct (cited on or before 11-APR-2020) Abnormal ECG When compared with ECG of 03-FEB-2021 23:54, Criteria for Inferior infarct are no longer Present Confirmed by Ant Gil ([id number]) on 02/09/2021 10:09:30 AM Referred By: REFERRED SELF Confirmed By:Ant Gil
--- NOTE | 2021-02-09 10:47 | Pharmacy Report ---
Pharmacy Glycemic Short Note 2 - Date of Service February 09, 2021 - Glycemic Short BSG Results (Last 24 hours): 02/08/21 02/08/21 02/08/21 13:59 14:05 20:18 Glucose 252 H POC Glucose 194 H POC Glucose (other) 247 H 02/09/21 02/09/21 02/09/21 01:27 01:32 07:14 Glucose 152 H POC Glucose 166 H 121 H POC Glucose (other) OUTPATIENT ANTIDIABETIC REGIMEN: * n/a ASSESSMENT: * 75 year old female admitted with GI Bleed, pre-diabetic, A1c 6.4% 11/27/20 * Patient on PO Prednisone at home, continuing inpatient * NPO for GI Bleed, start with bolus insulin only and add basal if blood sugars elevate * Patient received 5 units of NovoLog yesterday for elevated blood sugars, now at goal PLAN FOR INPATIENT GLYCEMIC CONTROL: * Basal insulin * none at this time * Bolus insulin * NovoLog per scale ACHS or Q6hrs while NPO * Goal Range: Low 110 mg/dL - High 140 mg/dL * Correction Factor: 25 mg/dL/unit * Nutritional / Prandial insulin per carb ratio of 1 unit per 15 grams CHO consumed when diet initiated PLAN FOR DISCHARGE: * continue lifestyle modifications to prevent diabetes and monitoring as outpatient
[2021-02-09 18:10] LABS: Hematocrit (blood only) 25.2 % (37-47); Hemoglobin 8.5 g/dL (12.0-16.0)
[2021-02-09] MEDS ORDERED: hydrOXYzine HCl 25 MG TAB PO PRN (21:27)
[2021-02-09] MEDS ORDERED: PHENAZOPYRIDINE HCL 100 MG TAB PO PRN (21:32)
[2021-02-09] MEDS: HYDROmorphone INJ 0.5 MG/0.5 ML SYR IV PRN (22:09)
--- NOTE | 2021-02-09 22:41 | Hospitalist Progress Note ---
Date of Service February 09, 2021 Assessment & Plan (1) GIB (gastrointestinal bleeding): Hematemesis and lower GI bleed Obtained blood consent, ordered 3 units of PRBC. Patient has not received blood due to antibodies. will hold scope until tomorrow given hemoglobin is now 5. Stop prednisone Consult gastroenterology (2) Acute blood loss anemia: Symptomatic with lightheadedness and prior syncope (3) Supratherapeutic INR: Suspect secondary to doxycycline given last admission Vit K 5mg IV given in ER, PTINR daily INR is therapeutic. (4) Hematemesis: As above (5) Syncope: Secondary to orthostatic hypotension from GI bleed as above (6) Diffuse arthralgia: Given nonreactive IgM we will discontinue doxycycline. Due to elevated LFTs especially AST will get CPK to assess for myositis. (7) Diabetic peripheral neuropathy associated with type 2 diabetes mellitus: HbA1C 6.4 in November Consult pharmacy for glycemic control while admitted with basal/bolus insulin (8) GERD (gastroesophageal reflux disease): IV pantoprazole drip as above (9) Permanent atrial fibrillation: Continue metoprolol succinate 50mg BID for rate control with hold par ameters Off anticoagulation due to GI bleed as above (10) S/P aortic valve replacement: Mechanical mitral and aortic valves Will need restarting on heparin IV drip once GI bleed stable and therapeutic warfarin prior to discharge (11) History of Chris-en-Y gastric bypass: (12) Acute pain of right hip: Lumbar radiculopathy from last admission Improved with prednisone Consider gabapentin taper per last pain management note if reoccurs (13) L1 vertebral fracture: Noted on CT A/P suspect because of her right-sided lumbar radiculopathy and pain on last admission. Admission and Anticipated Discharge Date Admission Date: February 08, 2021 Subjective 75 YO female reports feeling well. She has no new complaints at this time. Review of Systems Review of Systems: All systems reviewed & are unremarkable except as noted in HPI & below Physical Exam Physical Exam: Constitutional: well developed; + not well nourished and no acute distress Eyes: + anicteric sclerae; normal pupil size ENMT: external ear and nose normal, oropharynx normal Neck: trachea midline, no thyromegaly Respiratory: normal respiratory effort, lungs clear to auscultation Cardiovascular: Rate/Rhythm: regular rate and + irregularly irregular Heart Sounds: no murmur Vessels: no JVD Extremities: normal capillary refill (5-6 seconds peripherally, normal centrally) and + pedal edema (!+ edema to knee equal b/l); no calf tenderness Gastrointestinal (Abdomen): Inspection/Auscultation: abdomen normal to inspection and normal bowel sounds Percussion/Palpation: abdomen soft; abdomen nontender, no guarding and abdomen not rigid Musculoskeletal: no cyanosis or clubbing, extremities motor strength 5/5 (No joint pain) Skin: no rashes, warm and dry Neurologic: moves all extremities and awake; not confused Psychiatric: A+Ox3, euthymic affect Results & Data Results & Data ([facility]) Vital Signs (Past 12 Hours) Vital Signs Temp Pulse Pulse Resp BP BP Pulse Ox 02/09/21 20:26 02/09/21 19:32 36.9 C 90 16 146/80 H 100 02/09/21 17:06 36.5 C 81 18 129/78 100 02/09/21 16:32 36.9 C 89 18 148/75 H 99 02/09/21 15:32 36.8 C 89 18 133/77 100 02/09/21 15:02 36.8 C 83 20 125/66 100 02/09/21 14:47 36.9 C 87 20 131/69 100 02/09/21 14:30 36.9 C 81 18 135/66 100 02/09/21 14:19 36.5 C 81 18 129/67 99 02/09/21 13:19 37.1 C 82 16 133/73 100 02/09/21 12:49 36.5 C 105 H 20 136/61 100 02/09/21 12:34 36.5 C 88 18 134/73 100 02/09/21 12:15 36.8 C 84 18 127/62 99 02/09/21 12:13 36.7 C 89 20 131/63 98 02/09/21 11:58 36.7 C 89 15 131/63 98 02/09/21 10:58 36.8 C 77 16 122/64 100 Pulse Ox 02/09/21 20:26 95 02/09/21 19:32 02/09/21 17:06 02/09/21 16:32 02/09/21 15:32 02/09/21 15:02 02/09/21 14:47 02/09/21 14:30 02/09/21 14:19 02/09/21 13:19 02/09/21 12:49 02/09/21 12:34 02/09/21 12:15 02/09/21 12:13 02/09/21 11:58 02/09/21 10:58 PG Care Time/CCT Total # of Minutes Spent Total Time Spent with Patient: Total time spent is greater than 50% in coordination of care (as documented) at patient's floor/unit and/or counseling patient: Coding Level of Care Code 52692 Subseq Hosp Care Lvl 3 Diagnoses GIB (gastrointestinal bleeding) K92.2 GI bleed type/associated pathology: unspecified gastrointestinal hemorrhage type Acute blood loss anemia D62 Supratherapeutic INR R79.1 Hematemesis K92.0 Syncope R55 Diffuse arthralgia M25.50 Diabetic peripheral neuropathy associated with type 2 diabetes mellitus E11.42 GERD (gastroesophageal reflux disease) K21.9 Permanent atrial fibrillation I48.21 S/P aortic valve replacement Z95.2 History of Chris-en-Y gastric bypass Z98.84 Acute pain of right hip M25.551 L1 vertebral fracture S32.019A Time Spent (min) 35 (1) GIB (gastrointestinal bleeding) GI bleed type/associated pathology: unspecified gastrointestinal hemorrhage type Qualified Code(s): K92.2 - Gastrointestinal hemorrhage, unspecified
[2021-02-10] MEDS: INSULIN ASPART 100 UNITS/ML 3 ML PEN SC SCH ×5 (00:13→21:17)
[2021-02-10] MEDS: POTASSIUM CHLORIDE 30 MEQ in SODIUM CHLORIDE 0.9% 1000ML 1,000 ML IV SCH ×2 (05:44→14:12)
[2021-02-10] MEDS: PANTOprazole 40 MG in DEXTROSE 5% 100 ML IV SCH ×5 (05:44→21:45)
[2021-02-10] MEDS: HYDROmorphone INJ 0.5 MG/0.5 ML SYR IV PRN (06:18)
[2021-02-10 06:33] LABS: Hematocrit (blood only) 23.4 % (37-47); Hemoglobin 7.8 g/dL (12.0-16.0); Mean Corpuscular Hemoglobin 28.8 pg (25-34); Mean Corpuscular Hgb Conc 33.3 g/dL (32-36); Mean Corpuscular Volume 86.3 fL (80-100); Mean Platelet Volume 9.2 fL (7.4-10.4); Platelet Count 283 K/uL (130-400); RDW Standard Deviation 47.1 fL (36.4-46.3); Red Blood Count 2.71 M/uL (4.2-5.4); White Blood Count 14.71 K/uL (4.8-10.8)
[2021-02-10 06:47] LABS: INR 1.2 (0.9-1.1); Prothrombin Time 11.6 Seconds (9.0-12.0)
[2021-02-10 07:34] LABS: BUN Creatinine Ratio 51.8 (10-20); Creatinine Clr Calc Pharmacy 76.4 ml/min; Est GFR (African American) 81.7; Est GFR (Non-African American) 70.5; Potassium 4.5 mmol/L (3.5-5.1)
--- NOTE | 2021-02-10 08:24 | Gastroenterology Progress Note ---
Date of Service February 10, 2021 Assessment & Plan (1) Hematemesis: (2) History of Chris-en-Y gastric bypass: (3) Acute blood loss anemia: Continue current therapy Proceeed with EGD now Admission and Anticipated Discharge Date Admission Date: February 08, 2021 Subjective Patient received 3 u PRBC's yesterday. Hemodynamically stable overnight. No further overt GI bleeding. No fevers, chills, nausea, vomiting, diarrhea. No lightheadedness or dizziness. Physical Exam Constitutional: + ill appearing (chronic) and + obese Respiratory: normal respiratory effort, lungs clear to auscultation Cardiovascular: Rate/Rhythm: + irregularly irregular Gastrointestinal (Abdomen): normal bowel sounds, soft, nontender, no hepatosplenomegaly Results & Data Results & Data ([facility]) Vital Signs (Past 12 Hours) Vital Signs Temp Pulse Resp BP Pulse Ox Pulse Ox 02/10/21 07:33 36.7 C 76 16 125/68 100 02/10/21 03:32 36.4 C L 93 H 21 170/90 H 97 02/09/21 23:32 36.7 C 93 H 21 138/72 96 02/09/21 20:26 95 PG Care Time/CCT Total # of Minutes Spent Total Time Spent with Patient: Total time spent is greater than 50% in coordination of care (as documented) at patient's floor/unit and/or counseling patient: Coding Level of Care Code None Diagnoses Hematemesis K92.0 History of Chris-en-Y gastric bypass Z98.84 Acute blood loss anemia D62
--- NOTE | 2021-02-10 08:30 | Anesthesiology Consultation ---
Date of Service February 10, 2021 Assessment & Plan (1) Encounter for pre-operative examination: History Surgery Operation Date: 02/10/21 16:15 Proposed Procedures p Esophagogastroduodenoscopy Dr Brizuela - Brayan Oseguera Case, DO Height/Weight Height: 5 ft 8 in Weight: 105.1 kg Allergies Allergy/AdvReac Type Severity Reaction Status Date / Time iron dextran complex Allergy Severe RASH Verified 02/08/21 15:13 choline salicylate Allergy Intermediate TRILISATE-r Verified 02/08/21 15:13 nay magnesium salicylate Allergy Intermediate TRILISATE-r Verified 02/08/21 15:13 nay Trilisate Allergy Intermediate TRILISATE-r Verified 11/05/16 17:37 nay mometasone furoate Allergy Unknown Pt has no Verified 02/08/21 15:13 recollection of this Ferric Oxide Allergy Severe VENOFER Uncoded 02/08/21 15:13 INFUSION-RASH,WEAKNESS,BLEEDING-HOSPITALIZED Medications Home Medications Medication Instructions Recorded Confirmed Last Taken folic acid 1 mg tablet 1 mg PO QAM 05/06/20 02/08/21 02/08/21 multivitamin 1 tab PO QAM 05/06/20 02/08/21 02/08/21 BD Eclipse 25 gauge x 1" needle #3 ea NS 07/02/20 01/24/21 Unknown metoprolol succinate 50 mg 50 mg PO BID tab 07/15/20 02/08/21 02/08/21 tablet,extended release 24 hr warfarin 2.5 mg tablet 2.5 mg PO 6XWK 09/19/20 02/08/21 02/07/21 1.25mg bumetanide 1 mg PO DIRECTED PRN 01/02/21 02/08/21 02/07/21 cyanocobalamin (vitamin B-12) 1,000 mcg IM Q4WK 01/02/21 02/08/21 01/20/21 metolazone 5 mg PO DIRECTED PRN 01/02/21 02/08/21 02/06/21 warfarin 5 mg PO WK 01/02/21 02/08/21 01/01/21 oxycodone-acetaminophen 5 mg-325 1 tab PO Q6H PRN #14 tab 01/27/21 02/08/21 02/04/21 mg tablet lidocaine 1 patch TRANSDERMAL QAM #20 ea 02/07/21 02/08/21 02/06/21 atorvastatin 10 mg PO QAM 02/08/21 02/08/21 02/08/21 potassium chloride 60 meq PO QAM 02/08/21 02/08/21 02/07/21 prednisone 10 mg PO .TAPER 02/08/21 02/08/21 02/08/21 40 mg tramadol 50 mg PO UD PRN 02/08/21 02/08/21 02/08/21 13:00 100 mg Active Medications Generic Name Dose Route Start Last Admin Trade Name Freq PRN Reason Stop Dose Admin Hydromorphone HCl 0.5 mg 02/08/21 20:26 02/10/21 06:18 Hydromorphone Inj 0.5 Mg/0.5 Ml Syr IV 02/22/21 20:25 0.5 mg Q2H PRN Administration Severe Pain Hydroxyzine HCl 50 mg 02/09/21 21:27 02/09/21 22:09 Hydroxyzine Hcl 25 Mg Tab PO 03/11/21 21:26 50 mg BID PRN Administration Anxiety Pantoprazole Sodium 40 mg/ 100 mls @ 20 mls/hr 02/08/21 16:15 02/10/21 05:44 Dextrose IV 03/10/21 16:14 8 mg/hr Q5H MARCI 20 mls/hr Administration 8 MG/HR Potassium Chloride 30 meq/ 1,015 mls @ 125 mls/hr 02/08/21 20:45 02/10/21 05:44 Sodium Chloride IV 03/10/21 20:44 125 mls/hr .Q8H8M MARCI Administration Insulin Aspart 0 units 02/08/21 20:45 02/10/21 06:12 Insulin Aspart 100 Units/Ml 3 Ml Pen SC 03/10/21 20:44 1 units Q6 MARCI Administration Lidocaine 1 patch 02/09/21 09:00 02/09/21 10:01 Lidocaine 5% 1 Patch TD 03/11/21 08:59 Not Given QAM MARCI Metoprolol Succinate 50 mg 02/08/21 21:00 02/09/21 21:11 Metoprolol Succ 50mg Ext Rel Tab PO 03/10/21 20:59 50 mg BID MARCI Administration Miscellaneous 1 ea 02/08/21 21:00 02/09/21 21:10 Remove Lidoderm Patch N/A 03/10/21 20:59 1 ea DAILY@2100 MARCI Administration Phenazopyridine HCl 100 mg 02/09/21 21:32 02/09/21 22:19 Phenazopyridine Hcl 100 Mg Tab PO 03/11/21 21:31 100 mg TID PRN Administration Pain Past Medical History Medical History Abnormal CT scan, chest Acute blood loss anemia Anastomotic ulcer S/P gastric bypass ASCVD (arteriosclerotic cardiovascular disease) Carotid stenosis, asymptomatic left Carpal tunnel syndrome Cervical radiculopathy Chronic diastolic (congestive) heart failure Diabetic peripheral neuropathy associated with type 2 diabetes mellitus Elevated alkaline phosphatase level Esophageal candidiasis Eustachian tube dysfunction Hearing loss HTN (hypertension) Hyperlipidemia Hypertension 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) use 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 Mitral regurgitation Nontoxic multinodular goiter Obesity Obstructive sleep apnea Osteoporosis Pericardial effusion Permanent atrial fibrillation Personal history of diabetic foot ulcer Spinal stenosis, lumbar region with neurogenic claudication Severe L4-5 Venous insufficiency (chronic) (peripheral) Vitamin B12 deficiency Vitamin D deficiency Past Family History Family History Mother Congestive heart failure Diabetes Hypertension Cardiac disorder Brother Diabetes Polycythemia Pharyngeal neoplasm Pulmonary embolism Father Lung cancer Acute myocardial infarction Hypertension Cardiac disorder Myocardial infarction Denies family history of Ovarian cancer Prostate cancer Crohn's disease Breast cancer Colorectal cancer Past Surgical History Surgical History H/O gastric bypass H/O hernia repair H/O splenectomy H/O splenectomy History of esophagogastroduodenoscopy (EGD) History of knee replacement bilateral History of total abdominal hysterectomy Hx of appendectomy Hx of cholecystectomy Hx of tonsillectomy S/P aortic valve replacement (2011) S/P gastric bypass S/P mitral valve replacement (2011) S/P pericardial window creation (2011) Status post panniculectomy Social History Smoking Status: Never smoker Hx Alcohol Use: Yes Alcohol type: hard liquor alcohol intake frequency: holidays/special occasions only Hx Substance Use: No substance use type: painkillers Physical Exam Vital Signs Last Vital Signs Temp 36.7 C 02/10/21 07:33 Pulse 76 02/10/21 07:33 Resp 16 02/10/21 07:33 BP 125/68 02/10/21 07:33 Pulse Ox 100 02/10/21 07:33 Testing Laboratory Results 02/10/21 05:52 02/10/21 05:52 PT 11.6 Seconds (9.0-12.0) 02/10/21 05:52 INR 1.2 (0.9-1.1) H 02/10/21 05:52 APTT 31.4 Seconds (21.0-31.0) H 02/08/21 13:59 Blood Type O Positive 02/08/21 13:59 Antibody Screen POSITIVE A 02/08/21 13:59 02/10/21 02/10/21 02/10/21 07:32 06:04 00:01 POC Glucose 155 H 151 H 161 H Electrocardiogram Date: 02/08/21 Atrial fibrillation with rapid ventricular response Anteroseptal infarct (cited on or before 11-APR-2020) Abnormal ECG When compared with ECG of 03-FEB-2021 23:54, Criteria for Inferior infarct are no longer Present Confirmed by Ant Gil ([id number]) on 02/09/2021 10:09:30 AM
[2021-02-10] MEDS ORDERED: PROPOFOL IV EMULSION 10 MG/ML 20 ML VIAL IV ONE (09:19)
[2021-02-10] MEDS ORDERED: LIDOCAINE HCL 2% 2 ML VIAL/AMP(20MG/ML) INFIL ONE (09:19)
--- NOTE | 2021-02-10 09:28 | GI REPORT ---
Patient Name: Eden Wagner Procedure Date: 02/10/2021 8:58 AM Date of : 1945 Admit Type: Inpatient Age: 75 Gender: Female Attending MD: Brayan Brizuela DO Procedure: Upper GI endoscopy Providers: Brayan Brizuela DO Referring MD: Zacarias James M.d. Indications: Acute post hemorrhagic anemia Medicines: Monitored Anesthesia Care Complications: No immediate complications. Estimated Blood Loss: Estimated blood loss: none. Procedure: Pre-Anesthesia Assessment: - Prior to the procedure, a History and Physical was performed, and patient medications and allergies were reviewed. The patient's tolerance of previous anesthesia was also reviewed. The risks and benefits of the procedure and the sedation options and risks were discussed with the patient. All questions were answered, and informed consent was obtained. Prior Anticoagulants: The patient has taken Coumadin (warfarin), last dose was 3 days prior to procedure. ASA Grade Assessment: III - A patient with severe systemic disease. After reviewing the risks and benefits, the patient was deemed in satisfactory condition to undergo the procedure. After obtaining informed consent, the endoscope was passed under direct vision. Throughout the procedure, the patient's blood pressure, pulse, and oxygen saturations were monitored continuously. The Endoscope was introduced through the mouth, and advanced to the jejunum. The upper GI endoscopy was accomplished without difficulty. The patient tolerated the procedure well. Findings: The esophagus was normal. Evidence of a Chris-en-Y gastrojejunostomy was found. The gastrojejunal anastomosis was characterized by edema and visible sutures. This was traversed. The [id number] limb was characterized by erythema, a hemorrhagic appearance and visible sutures. Small area of bleeding at site of suture material. Endoscissors were used to remove the suture and heater probe therapy was applied to 3 separate locations with mild oozing of bright red blood. Fulguration to ablate the lesions by heater probe was successful. The examined jejunum was normal. Impression: - Normal esophagus. - Chris-en-Y gastrojejunostomy with gastrojejunal anastomosis characterized by edema and visible sutures. Treated with a heater probe. - Normal examined jejunum. - No specimens collected. Recommendation: - [facility]. - Continue present medications. - Use sucralfate suspension 1 gram PO QID for 10 days. - Advance diet as tolerated. Brayan RaymondSrinivasan Brizuela, DO 02/10/2021 9:27:40 AM This report has been signed electronically. Note Initiated On: 02/10/2021 8:58 AM Number of Addenda: 0 I attest to the content of the Intraoperative Record and orders documented therein, exceptions below {[id number]}
[2021-02-10] MEDS: LIDOCAINE 5% 1 PATCH TD SCH (10:16)
[2021-02-10] MEDS: METOPROLOL SUCC 50MG EXT REL TAB PO SCH ×2 (10:16→21:16)
[2021-02-10] MEDS: SUCRALFATE 1 GM/10 ML UDC PO SCH ×3 (11:03→21:16)
--- NOTE | 2021-02-10 15:10 | Anesthesiology Progress Note ---
Date of Service February 10, 2021 Anesthesia Post Procedure Vital Signs Vital Signs: Temp Pulse Pulse Pulse Resp BP BP 02/10/21 11:33 36.5 C 82 20 151/81 H 02/10/21 10:15 75 20 153/81 H 02/10/21 09:57 67 16 117/79 02/10/21 09:44 72 16 134/67 02/10/21 09:29 83 14 120/62 02/10/21 08:23 36.7 C 80 16 133/77 02/10/21 07:33 36.7 C 76 16 125/68 02/10/21 03:32 36.4 C L 93 H 21 170/90 H 02/09/21 23:32 36.7 C 93 H 21 138/72 02/09/21 20:26 02/09/21 19:32 36.9 C 90 16 146/80 H 02/09/21 17:06 36.5 C 81 18 129/78 02/09/21 16:32 36.9 C 89 18 148/75 H 02/09/21 15:32 36.8 C 89 18 133/77 Pulse Ox Pulse Ox 02/10/21 11:33 100 02/10/21 10:15 98 02/10/21 09:57 99 02/10/21 09:44 98 02/10/21 09:29 100 02/10/21 08:23 97 02/10/21 07:33 100 02/10/21 03:32 97 02/09/21 23:32 96 02/09/21 20:26 95 02/09/21 19:32 100 02/09/21 17:06 100 02/09/21 16:32 99 02/09/21 15:32 100 Transfer of Care Handoff Completed per policy Notes Mental Status: alert / awake / arousable and participated in evaluation Patient Amnestic to Procedure: Yes Nausea / Vomiting: adequately controlled Pain: adequately controlled Airway Patency, RR, SpO2: stable & adequate BP & HR: stable & adequate Hydration State: stable & adequate Anesthetic Complications: no major complications apparent and Pt Satisfied with anesthetic care
[2021-02-10] MEDS ORDERED: WARFARIN SOD 2.5 MG TAB PO ONE (16:09)
[2021-02-10] MEDS ORDERED: Heparin IV Adult Wt-Based Standard *NO* Bolus Protocol IV SCH (16:33)
[2021-02-10] MEDS: HEPARIN SODIUM/DEXTROSE 25,000 UNITS/500 ML BAG IV SCH (17:04)
--- NOTE | 2021-02-10 19:53 | Hospitalist Progress Note ---
Date of Service February 10, 2021 Assessment & Plan (1) GIB (gastrointestinal bleeding): Hematemesis and lower GI bleed Obtained blood consent, ordered 3 units of PRBC on 02/08 Patient has not received blood earlier due to antibodies Patient had scope today: Small area of bleeding at site of suture material. Endoscissors were used to remove the suture and heater probe therapy was applied to 3 separate locations with mild oozing of bright red blood. Stop prednisone (2) Acute blood loss anemia: Symptomatic with lightheadedness and prior syncope (3) Supratherapeutic INR: INR was supratherapeutic, this was held. INR reversed. Now thart patient is S/P endoscopy will continue warfarin and place on IV heparin. Given h/o mechanical aortic and mitral valve: risk of clots is elevated. (4) Hematemesis: As above (5) Syncope: Secondary to orthostatic hypotension from GI bleed as above (6) Diffuse arthralgia: Given nonreactive IgM we will discontinue doxycycline. Due to elevated LFTs especially AST will get CPK to assess for myositis. (7) Diabetic peripheral neuropathy associated with type 2 diabetes mellitus: HbA1C 6.4 in November Consult pharmacy for glycemic control while admitted with basal/bolus insulin (8) GERD (gastroesophageal reflux disease): IV pantoprazole drip as above (9) Permanent atrial fibrillation: Continue metoprolol succinate 50mg BID for rate control with hold parameters Off anticoagulation due to GI bleed as above (10) S/P aortic valve replacement: Mechanical mitral and aortic valves restarting on heparin IV drip and therapeutic warfarin (11) History of Chris-en-Y gastric bypass: (12) Acute pain of right hip: Lumbar radiculopathy from last admission Improved with prednisone Consider gabapentin taper per last pain management note if reoccurs (13) L1 vertebral fracture: Noted on CT A/P suspect because of her right-sided lumbar radiculopathy and pain on last admission. keep on PCU due to risk of bleeding. Admission and Anticipated Discharge Date Admission Date: February 08, 2021 Subjective Patient reports feeling well. She has no new complaints, denies any stool with clots, or blood. Review of Systems Review of Systems: All systems reviewed & are unremarkable except as noted in HPI & below Physical Exam Physical Exam: Constitutional: well developed; + not well nourished and no acute distress Eyes: + anicteric sclerae; normal pupil size ENMT: external ear and nose normal, oropharynx normal Neck: trachea midline, no thyromegaly Respiratory: normal respiratory effort, lungs clear to auscultation Cardiovascular: Rate/Rhythm: regular rate and + irregularly irregular Heart Sounds: no murmur Vessels: no JVD Extremities: normal capillary refill (5-6 seconds peripherally, normal centrally) and + pedal edema (!+ edema to knee equal b/l); no calf tenderness Gastrointestinal (Abdomen): Inspection/Auscultation: abdomen normal to inspection and normal bowel sounds Percussion/Palpation: abdomen soft; abdomen nontender, no guarding and abdomen not rigid Musculoskeletal: no cyanosis or clubbing, extremities motor strength 5/5 (No joint pain) Skin: no rashes, warm and dry Neurologic: moves all extremities and awake; not confused Psychiatric: A+Ox3, euthymic affect Results & Data Results & Data ([facility]) Vital Signs (Past 12 Hours) Vital Signs Temp Pulse Resp BP Pulse Ox 02/10/21 19:16 36.6 C 77 20 145/69 H 98 02/10/21 15:26 36.6 C 69 20 159/82 H 99 02/10/21 11:33 36.5 C 82 20 151/81 H 100 02/10/21 10:15 75 20 153/81 H 98 02/10/21 09:57 67 16 117/79 99 02/10/21 09:44 72 16 134/67 98 02/10/21 09:29 83 14 120/62 100 02/10/21 08:23 36.7 C 80 16 133/77 97 PG Care Time/CCT Total # of Minutes Spent Total Time Spent with Patient: Total time spent is greater than 50% in coordination of care (as documented) at patient's floor/unit and/or counseling patient: Coding Level of Care Code 77603 Subseq Hosp Care Lvl 3 Diagnoses GIB (gastrointestinal bleeding) K92.2 GI bleed type/associated pathology: unspecified gastrointestinal hemorrhage type Acute blood loss anemia D62 Supratherapeutic INR R79.1 Hematemesis K92.0 Syncope R55 Diffuse arthralgia M25.50 Diabetic peripheral neuropathy associated with type 2 diabetes mellitus E11.42 GERD (gastroesophageal reflux disease) K21.9 Permanent atrial fibrillation I48.21 S/P aortic valve replacement Z95.2 History of Chris-en-Y gastric bypass Z98.84 Acute pain of right hip M25.551 L1 vertebral fracture S32.019A Time Spent (min) 35 (1) GIB (gastrointestinal bleeding) GI bleed type/associated pathology: unspecified gastrointestinal hemorrhage type Qualified Code(s): K92.2 - Gastrointestinal hemorrhage, unspecified
[2021-02-11 01:43] LABS: Hematocrit (blood only) 21.8 % (37-47); Hemoglobin 7.3 g/dL (12.0-16.0); Mean Corpuscular Hemoglobin 29.3 pg (25-34); Mean Corpuscular Hgb Conc 33.5 g/dL (32-36); Mean Corpuscular Volume 87.6 fL (80-100); Mean Platelet Volume 9.1 fL (7.4-10.4); Nucleated RBC # (auto) 0.09 K/uL (0-0); Nucleated RBC % (auto) 0.7 %; Platelet Count 264 K/uL (130-400); RDW Coefficient of Variation 15.1 % (11.5-14.5); RDW Standard Deviation 47.3 fL (36.4-46.3); Red Blood Count 2.49 M/uL (4.2-5.4); White Blood Count 14.02 K/uL (4.8-10.8)
[2021-02-11 01:47] LABS: BUN Creatinine Ratio 39.1 (10-20); Calcium 7.7 mg/dl (8.5-10.1); Creatinine Clr Calc Pharmacy 88.2 ml/min; Est GFR (African American) 97.3; Est GFR (Non-African American) 83.9; INR 1.2 (0.9-1.1); Potassium 3.7 mmol/L (3.5-5.1); Prothrombin Time 12.2 Seconds (9.0-12.0)
[2021-02-11 02:02] LABS: Basophils # (auto) 0.01 K/uL (0-0.2); Basophils % (auto) 0.1 %; Eosinophils # (auto) 0.84 K/uL (0-0.5); Immature Granulocytes # (auto) 0.66 K/uL (0.00-0.02); Immature Granulocytes % (auto) 4.7 %; Lymphocytes # (auto) 2.77 K/uL (1.2-3.4); Lymphocytes % (auto) 19.8 %; Monocytes # (auto) 1.25 K/uL (0.11-0.59); Monocytes % (auto) 8.9 %; Neutrophils # (auto) 8.49 K/uL (1.4-6.5); Neutrophils % (auto) 60.5 %; RBC Morphology Unremarkable
[2021-02-11 02:05] LABS: Partial Thromboplastin Time 79.3 Seconds (21.0-31.0)
[2021-02-11] MEDS: PANTOprazole 40 MG in DEXTROSE 5% 100 ML IV SCH ×2 (03:15→09:15)
[2021-02-11] MEDS: METOPROLOL SUCC 50MG EXT REL TAB PO SCH ×2 (08:23→21:37)
[2021-02-11] MEDS: LIDOCAINE 5% 1 PATCH TD SCH (08:23)
[2021-02-11] MEDS: SUCRALFATE 1 GM/10 ML UDC PO SCH ×4 (08:23→21:36)
[2021-02-11 08:27] LABS: Partial Thromboplastin Ratio 3.7
[2021-02-11] MEDS: INSULIN ASPART 100 UNITS/ML 3 ML PEN SC SCH ×4 (08:29→22:27)
[2021-02-11] MEDS: HEPARIN SODIUM/DEXTROSE 25,000 UNITS/500 ML BAG IV SCH (12:16)
[2021-02-11 13:13] LABS: Appearance Urine Clear (Clear); Bilirubin Urine Negative (Negative); Blood Urine Negative (Negative); Color Urine Yellow; Glucose Urine UA Negative (Negative); Ketones Urine Negative (Negative); Leukocyte Esterase Urine 2+ (Negative); Nitrite Urine Positive (Negative); Protein Urine Negative (Negative); Urobilinogen Urine Negative (Negative); pH Urine 5.5 (4.5-7.5)
--- NOTE | 2021-02-11 13:18 | Hospitalist Progress Note ---
Date of Service February 11, 2021 Assessment & Plan (1) GIB (gastrointestinal bleeding): EGD on 02/10 showed areas of erythema and bleeding at anastomosis site of her Chris-en-Y gastrojejunostomy at 3 separate locations. - S/p 3 units of PRBC on 02/08. - Stopped prednisone - Continue PPI PO BID & sucralfate per GI - Hemoglobin down to 7.3 on 02/11 -> No sign of active bleeding; will monitor. Cannot give IV iron due to allergy. (2) Acute blood loss anemia: Symptomatic with lightheadedness and syncope. - S/p PRBCs as above (3) Supratherapeutic INR: INR was supra-therapeutic on 02/08 at 6.0. Given h/o mechanical aortic and mitral valve: risk of clots is elevated. - INR reversed & INR down to 1.2 on 02/11. - Now on heparin gtt and warfarin to return to anticoagulation. (4) Permanent atrial fibrillation: HR presently in the 80s. - Continue metoprolol succinate 50mg BID for rate control with hold parameters - Anticoagulation as above (5) Acute pain of right hip: Lumbar radiculopathy from last admission. Improved with prednisone. - Consider gabapentin taper per last pain management note on 02/05 if reoccurs (6) Diabetic peripheral neuropathy associated with type 2 diabetes mellitus: HbA1C 6.4% in November 2020. - Consult pharmacy for glycemic control while admitted with basal/bolus insulin -> Blood sugars in the 120 - 150 range in the last 24 hours. (7) S/P aortic valve replacement: Mechanical mitral and aortic valves. Unclear reason for replacement. - As above (8) History of Chris-en-Y gastric bypass: Noted. Anastomosis site bleeding as above. (9) Syncope: Secondary to orthostatic hypotension from GI bleed as above. (10) Diffuse arthralgia: Initially presumed to be Lyme disease as her IgG was positive; however, it is a scattered set of immunoglobulins, so this is not likely to be a true positive. - Stopped doxycycline on admission (02/08) - Monitor (11) L1 vertebral fracture: Noted on CT A/P on 02/08. Suspect it is the cause of her right-sided lumbar radiculopathy and pain on last admission. - Monitor Admission and Anticipated Discharge Date Admission Date: February 08, 2021 Subjective Feels very swollen today. Has a lot of water weight on her. Reports no fevers/chills, chest pain, shortness of breath, abdominal pain, nausea, or vomiting. Physical Exam Constitutional: WD/WN, vitals as above Eyes: EOM intact bilaterally; no conjunctival abnormality ENMT: external ear and nose normal, oropharynx normal Neck: trachea midline, no thyromegaly normal visual inspection Respiratory: normal respiratory effort, lungs clear to auscultation no respiratory distress Cardiovascular: RRR, no murmur, no edema Gastrointestinal (Abdomen): Inspection/Auscultation: abdomen normal to inspection; abdomen not distended Musculoskeletal: no cyanosis or clubbing, extremities motor strength 5/5 Skin: no rashes, warm and dry Neurologic: moves all extremities and awake Psychiatric: Orientation: alert, oriented to person and cooperative Results & Data Results & Data ([facility]) Vital Signs (Past 12 Hours) Vital Signs Temp Pulse Resp BP Pulse Ox 02/11/21 10:41 36.6 C 86 19 163/76 H 97 02/11/21 07:03 36.5 C 67 18 129/72 99 02/11/21 03:24 36.6 C 77 18 168/80 H 98 PG Care Time/CCT Total # of Minutes Spent Total Time Spent with Patient: Total time spent is greater than 50% in coordination of care (as documented) at patient's floor/unit and/or counseling patient: Coding Level of Care Code 05255 Subseq Hosp Care Lvl 3 Diagnoses GIB (gastrointestinal bleeding) K92.2 GI bleed type/associated pathology: unspecified gastrointestinal hemorrhage type Acute blood loss anemia D62 Supratherapeutic INR R79.1 Permanent atrial fibrillation I48.21 Acute pain of right hip M25.551 Diabetic peripheral neuropathy associated with type 2 diabetes mellitus E11.42 S/P aortic valve replacement Z95.2 History of Chris-en-Y gastric bypass Z98.84 Syncope R55 Diffuse arthralgia M25.50 L1 vertebral fracture S32.019A (1) GIB (gastrointestinal bleeding) GI bleed type/associated pathology: unspecified gastrointestinal hemorrhage type Qualified Code(s): K92.2 - Gastrointestinal hemorrhage, unspecified
[2021-02-11 13:32] LABS: Bacteria Urine 2+ (Negative); RBC Urine 0-4 /hpf (0-4)
[2021-02-11] MEDS ORDERED: BUMETANIDE 1 MG in SYRINGE 0 ML IV ONE (14:00)
--- NOTE | 2021-02-11 14:26 | Pharmacy Report ---
Pharmacy Glycemic Sign Off Nt - Date of Service February 11, 2021 - Assessment & Plan ASSESSMENT: * Pharmacy was consulted by Dr Hester on 02/08/21 for glycemic control and to write orders per [facility] inpatient glycemic control protocol. * Major changes made by pharmacy to antidiabetic regimen include: * Addition of carb ratio * Patient has been receiving 3-8 units of insulin per day for adequate glycemic control * BSGs ranging 105 - 155 mg/dl * Regimen has only required minor adjustments over the past 48hrs to achieve this level of control * Do not anticipate further changes in patient status that would quickly deteriorate glycemic control (i.e. patient to be NPO for upcoming procedure, steroids tapering, starting tube feedings, etc). * Please see recommendations for outpatient antidiabetic regimen below. PLAN FOR INPATIENT GLYCEMIC CONTROL: No changes needed to current regimen. * Continue NovoLog per scale ACHS/Q6hrs while NPO * Goal range = 110 140 mg/dl * CF = 25 mg/dl/unit * CR = 1 unit for ever 15 g CHO consumed * Pharmacy is signing off of glycemic consult and will no longer be making adjustments to inpatient regimen. Please feel free to re-consult if needed. Thank you. DISCHARGE RECOMMENDATIONS: * A1c 6.4 % on 11/27/20 * continue lifestyle modifications to prevent diabetes and monitoring as outpatient
[2021-02-11 16:41] LABS: Partial Thromboplastin Ratio 2.1
[2021-02-11] MEDS: WARFARIN SOD 2.5 MG TAB PO SCH (16:42)
[2021-02-11 16:49] LABS: Partial Thromboplastin Time 55.1 Seconds (21.0-31.0)
[2021-02-11] MEDS: PANTOprazole 40 MG TAB PO SCH (21:36)
[2021-02-12 05:42] LABS: Hematocrit (blood only) 21.4 % (37-47); Hemoglobin 7.2 g/dL (12.0-16.0); Mean Corpuscular Hemoglobin 29.3 pg (25-34); Mean Corpuscular Hgb Conc 33.6 g/dL (32-36); Mean Platelet Volume 8.8 fL (7.4-10.4); Nucleated RBC % (auto) 1.2 %; Platelet Count 340 K/uL (130-400); RDW Coefficient of Variation 15.2 % (11.5-14.5); RDW Standard Deviation 47.3 fL (36.4-46.3); Red Blood Count 2.46 M/uL (4.2-5.4); White Blood Count 16.21 K/uL (4.8-10.8)
[2021-02-12 06:11] LABS: INR 1.4 (0.9-1.1); Partial Thromboplastin Ratio 3.1; Prothrombin Time 13.6 Seconds (9.0-12.0)
[2021-02-12 06:19] LABS: Albumin Globulin Ratio 0.9 (0.9-2); Albumin Level 2.4 gm/dl (3.4-5.0); BUN Creatinine Ratio 21.8 (10-20); Bilirubin,Total 0.7 mg/dl (0.2-1); Calcium 7.8 mg/dl (8.5-10.1); Est GFR (African American) 101.9; Est GFR (Non-African American) 87.9; Globulin 2.6 gm/dl (2.5-4.0); Magnesium 2.1 mg/dl (1.8-2.4); Partial Thromboplastin Time 81.1 Seconds (21.0-31.0); Potassium 3.1 mmol/L (3.5-5.1)
[2021-02-12] MEDS: SUCRALFATE 1 GM/10 ML UDC PO SCH ×4 (07:58→21:00)
[2021-02-12] MEDS: LIDOCAINE 5% 1 PATCH TD SCH (07:58)
[2021-02-12] MEDS: PANTOprazole 40 MG TAB PO SCH ×2 (07:59→21:01)
[2021-02-12] MEDS: METOPROLOL SUCC 50MG EXT REL TAB PO SCH ×2 (07:59→21:01)
[2021-02-12] MEDS: INSULIN ASPART 100 UNITS/ML 3 ML PEN SC SCH ×4 (08:00→21:01)
[2021-02-12] MEDS: HEPARIN SODIUM/DEXTROSE 25,000 UNITS/500 ML BAG IV SCH (10:09)
--- NOTE | 2021-02-12 11:42 | Hospitalist Progress Note ---
Date of Service February 12, 2021 Assessment & Plan (1) Chronic diastolic (congestive) heart failure: Unknown EF, though cardiology note from 04/2020 describes it as diastolic failure. Home weight she notes as ~215 lbs. Of note, this is iatrogenic from blood and holding her home diuretic, so I do NOT think this is an acute diastolic CHF exacerbation. - Will get TTE for our records - Start Bumex 2 mg IV daily (2) GIB (gastrointestinal bleeding): EGD on 02/10 showed areas of erythema and bleeding at anastomosis site of her Chris-en-Y gastrojejunostomy at 3 separate locations. - S/p 3 units of PRBC on 02/08. - Stopped prednisone - Continue PPI PO BID & sucralfate per GI - Hemoglobin down to 7.2 on 02/12 -> No sign of active bleeding; will monitor. Will give IV iron after speaking with Dr. Sutton about what formulation is safe for her. (3) Acute blood loss anemia: Symptomatic with lightheadedness and syncope. - S/p PRBCs as above (4) Supratherapeutic INR: INR was supra-therapeutic on 02/08 at 6.0. Given h/o mechanical aortic and mitral valve: risk of clots is elevated. - INR reversed & INR down to 1.2 on 02/11. - Now on heparin gtt and warfarin to return to anticoagulation -> INR is 1.4 today (02/12). (5) Permanent atrial fibrillation: HR presently in the 80s. - Continue metoprolol succinate 50mg BID for rate control with hold parameters - Anticoagulation as above (6) Acute pain of right hip: Lumbar radiculopathy from last admission. Improved with prednisone. - Consider gabapentin taper per last pain management note on 02/05 if reoccurs - Presently no pain. (7) Diabetic peripheral neuropathy associated with type 2 diabetes mellitus: HbA1C 6.4% in November 2020. - Consulted pharmacy for glycemic control while admitted with basal/bolus insulin -> Blood sugars in the 100 - 130 range in the last 24 hours. (8) S/P aortic valve replacement: [employer] mechanical mitral and aortic valves put in in 2011. She was told at the time that it was due to using the diet drug "Fen-Phen" (fenfluramine-phentermine). - As above (9) History of Chris-en-Y gastric bypass: Noted. Anastomosis site bleeding as above. (10) Syncope: Secondary to orthostatic hypotension from GI bleed as above. (11) Diffuse arthralgia: Initially presumed to be Lyme disease as her IgG was positive; however, it is a scattered set of immunoglobulins, so this is not likely to be a true positive. - Stopped doxycycline on admission (02/08) - Monitor (12) L1 vertebral fracture: Noted on CT A/P on 02/08. Suspect it is the cause of her right-sided lumbar radiculopathy and pain on last admission. - Monitor Admission and Anticipated Discharge Date Admission Date: February 08, 2021 Subjective Stable today. No major issues. She feels her swelling is improving, though still present. Reports no fevers/chills, chest pain, shortness of breath, abdominal pain, nausea, or vomiting. Physical Exam Constitutional: WD/WN, vitals as above Eyes: EOM intact bilaterally; no conjunctival abnormality ENMT: external ear and nose normal, oropharynx normal Neck: trachea midline, no thyromegaly normal visual inspection Respiratory: normal respiratory effort, lungs clear to auscultation no respiratory distress Cardiovascular: Rate/Rhythm: regular rate and + irregularly irregular Heart Sounds: normal S1, normal S2 and + click Extremities: + edema Gastrointestinal (Abdomen): Inspection/Auscultation: abdomen normal to inspection; abdomen not distended Musculoskeletal: no cyanosis or clubbing, extremities motor strength 5/5 Skin: no rashes, warm and dry Neurologic: moves all extremities and awake Psychiatric: Orientation: alert, oriented to person and cooperative Results & Data Results & Data ([facility]) Vital Signs (Past 12 Hours) Vital Signs Temp Pulse Resp BP Pulse Ox 02/12/21 11:27 36.9 C 75 18 143/83 H 100 02/12/21 07:11 36.4 C L 72 20 147/73 H 99 02/12/21 03:48 36.5 C 79 18 138/79 97 PG Care Time/CCT Total # of Minutes Spent Total Time Spent with Patient: Total time spent is greater than 50% in coordination of care (as documented) at patient's floor/unit and/or counseling patient: Coding Level of Care Code 35203 Subseq Hosp Care Lvl 3 Diagnoses Chronic diastolic (congestive) heart failure I50.32 GIB (gastrointestinal bleeding) K92.2 GI bleed type/associated pathology: unspecified gastrointestinal hemorrhage type Acute blood loss anemia D62 Supratherapeutic INR R79.1 Permanent atrial fibrillation I48.21 Acute pain of right hip M25.551 Diabetic peripheral neuropathy associated with type 2 diabetes mellitus E11.42 S/P aortic valve replacement Z95.2 History of Chris-en-Y gastric bypass Z98.84 Syncope R55 Diffuse arthralgia M25.50 L1 vertebral fracture S32.019A (1) GIB (gastrointestinal bleeding) GI bleed type/associated pathology: unspecified gastrointestinal hemorrhage type Qualified Code(s): K92.2 - Gastrointestinal hemorrhage, unspecified
[2021-02-12 12:55] LABS: Partial Thromboplastin Ratio 2.3
[2021-02-12 13:16] LABS: Partial Thromboplastin Time 59.5 Seconds (21.0-31.0)
[2021-02-12] MEDS: BUMETANIDE 2 MG in SYRINGE 0 ML IV SCH (13:21)
[2021-02-12] MEDS: POTASSIUM CHLORIDE CRTAB 20 MEQ TABCR PO SCH ×2 (13:25→21:00)
--- NOTE | 2021-02-12 14:19 | XCELERA ---
[id number] \\[id number]
[2021-02-12] MEDS: WARFARIN SOD 2.5 MG TAB PO SCH (16:52)
[2021-02-13] MEDS ORDERED: GABAPENTIN 600 MG TAB PO STA (00:23)
--- NOTE | 2021-02-13 02:22 | Communication Note ---
Date of Service: February 13, 2021 Contacted by bedside nursing regarding patient having arthritic pains, and desiring pain medication. Patient initially asked for IV Dilaudid in order to control her pain; however, when this was denied reverted to request for Percocet. On review of pain management note from 01/24/2021, recommendations were made for utilization of gabapentin and Cymbalta for augmentation of pain control, at that time recommended judicious utilization of Percocet given moderate risk for opiate complications. Potential pain medication regimens were discussed with Dr. Marr, and subsequently offered patient gabapentin, cymbalta, topical Voltaren, and heating pad for chronic arthritic pain; however patient declined these regimens at this time. Will defer additional conversations for chronic pain control to the day team for further management. Resident Activity Tracking Resident Involvement: Resident Care Provided and Critical Care Unit Manager Coverage Note Care Provided: Adult Hospital Medicine
[2021-02-13] MEDS ORDERED: ACETAMINOPHEN 500 MG TAB PO STA (02:48)
[2021-02-13] MEDS ORDERED: ACETAMINOPHEN 500 MG TAB ONE (02:56)
[2021-02-13 06:10] LABS: Hematocrit (blood only) 21.1 % (37-47); Mean Corpuscular Hemoglobin 29.4 pg (25-34); Mean Corpuscular Hgb Conc 33.2 g/dL (32-36); Mean Corpuscular Volume 88.7 fL (80-100); Nucleated RBC # (auto) 0.23 K/uL (0-0); Nucleated RBC % (auto) 1.1 %; Platelet Count 411 K/uL (130-400); RDW Coefficient of Variation 15.5 % (11.5-14.5); RDW Standard Deviation 47.9 fL (36.4-46.3); Red Blood Count 2.38 M/uL (4.2-5.4); White Blood Count 19.74 K/uL (4.8-10.8)
[2021-02-13 06:28] LABS: INR 1.6 (0.9-1.1); Partial Thromboplastin Ratio 2.3; Prothrombin Time 15.5 Seconds (9.0-12.0)
[2021-02-13 06:45] LABS: BUN Creatinine Ratio 17.4 (10-20); Creatinine Clr Calc Pharmacy 85.4 ml/min; Est GFR (Non-African American) 81.1; Potassium 3.7 mmol/L (3.5-5.1)
[2021-02-13 07:24] LABS: Partial Thromboplastin Time 59.2 Seconds (21.0-31.0)
[2021-02-13] MEDS: SUCRALFATE 1 GM/10 ML UDC PO SCH ×4 (07:59→19:45)
[2021-02-13] MEDS: BUMETANIDE 2 MG in SYRINGE 0 ML IV SCH (08:00)
[2021-02-13] MEDS: INSULIN ASPART 100 UNITS/ML 3 ML PEN SC SCH ×4 (08:00→20:44)
[2021-02-13] MEDS: LIDOCAINE 5% 1 PATCH TD SCH (08:01)
[2021-02-13] MEDS: PANTOprazole 40 MG TAB PO SCH ×2 (08:01→19:45)
[2021-02-13] MEDS: METOPROLOL SUCC 50MG EXT REL TAB PO SCH ×2 (08:01→19:45)
[2021-02-13] MEDS ORDERED: oxyCODONE/ACETAMINOPHEN 5mg/325mg TAB PO PRN (08:38)
[2021-02-13] MEDS ORDERED: BUMETANIDE 4 MG in SYRINGE 0 ML IV SCH (09:00)
[2021-02-13] MEDS ORDERED: [UNRECOGNIZED DRUG - MIXTURE] IV SCH (09:00)
[2021-02-13] MEDS ORDERED: BUMETANIDE 2 MG in SYRINGE 0 ML IV ONE (09:00)
[2021-02-13] MEDS: ACETAMINOPHEN 325 MG TAB PO PRN (09:20)
[2021-02-13] MEDS ORDERED: SODIUM FERRIC GLUCONATE IV ONE (09:30)
[2021-02-13] MEDS ORDERED: SODIUM CHLORIDE 0.9% IV ONE (09:30)
[2021-02-13] MEDS: HEPARIN SODIUM/DEXTROSE 25,000 UNITS/500 ML BAG IV SCH (10:01)
--- NOTE | 2021-02-13 13:56 | Hospitalist Progress Note ---
Date of Service February 13, 2021 Assessment & Plan (1) Chronic diastolic (congestive) heart failure: EF on echo on 02/12/2021 was 60% with mild concentric LVH. RVSP > 60 mmHg. Home weight she notes as ~215 lbs. Of note, this is iatrogenic from blood and holding her home diuretic, so I do NOT think this is an acute diastolic CHF exacerbation. - Continue Bumex 4 mg IV daily; will add metolazone tomorrow if we do not see substantial diuresis today. - Continue daily weights and I&Os. (2) GIB (gastrointestinal bleeding): EGD on 02/10 showed areas of erythema and bleeding at anastomosis site of her Chris-en-Y gastrojejunostomy at 3 separate locations. - S/p 3 units of PRBC on 02/08. - Continue PPI PO BID & sucralfate per GI - Hemoglobin down to 7.0 on 02/13 -> No sign of active bleeding; will monitor. Started Ferrlicit per Dr. Sutton's recommendation. Will avoid transfuse per discussion with the patient as she is concerned about developing further antibodies. (3) Acute blood loss anemia: Symptomatic with lightheadedness and syncope. - S/p PRBCs as above (4) Supratherapeutic INR: INR was supra-therapeutic on 02/08 at 6.0. Given h/o mechanical aortic and mitral valve: risk of clots is elevated. - INR reversed & INR down to 1.2 on 02/11. - Now on heparin gtt and warfarin to return to anticoagulation -> INR is 1.6 today (02/13). (5) Permanent atrial fibrillation: HR presently in the 80s. - Continue metoprolol succinate 50mg BID for rate control with hold parameters - Anticoagulation as above (6) Acute pain of right hip: Lumbar radiculopathy from last admission. Improved with prednisone (but this was stopped due to GI bleed). - Consider gabapentin taper per last pain management note on 02/05 if reoccurs - Presently no pain. (7) Diabetic peripheral neuropathy associated with type 2 diabetes mellitus: HbA1C 6.4% in November 2020. - Consulted pharmacy for glycemic control while admitted with basal/bolus insulin -> Blood sugars in the 100 - 130 range in the last 24 hours. (8) S/P aortic valve replacement: [employer] mechanical mitral and aortic valves put in in 2011. She was told at the time that it was due to using the diet drug "Fen-Phen" (fenfluramine-phentermine). - As above (9) History of Chris-en-Y gastric bypass: Noted. Anastomosis site bleeding as above. (10) Syncope: Secondary to orthostatic hypotension from GI bleed as above. (11) Diffuse arthralgia: Initially presumed to be Lyme disease as her IgG was positive; however, it is a scattered set of immunoglobulins, so this is not likely to be a true positive. - Stopped doxycycline on admission (02/08) - Will see rheumatology when able. Presently using graduated pain medication Tylenol, tramadol, and Percocet PRN. (12) L1 vertebral fracture: Noted on CT A/P on 02/08. Suspect it is the cause of her right-sided lumbar radiculopathy and pain on last admission. - Monitor Admission and Anticipated Discharge Date Admission Date: February 08, 2021 Subjective Very frustrated this morning with overnight pain. The pain was in the knee, up around the back, the left shoulder, and into the neck. This is unfortunately pain that has been ongoing for her and is treated with her PCP, pain management, and hopefully rheumatology soon. Is doing some better this morning pain-small. Is discouraged by the slight increase in her weight today. Reports no fevers/chills, chest pain, shortness of breath, abdominal pain, nausea, or vomiting. Physical Exam Constitutional: WD/WN, vitals as above Eyes: EOM intact bilaterally; no conjunctival abnormality ENMT: external ear and nose normal, oropharynx normal Neck: trachea midline, no thyromegaly normal visual inspection Respiratory: normal respiratory effort, lungs clear to auscultation no respiratory distress Cardiovascular: RRR, no murmur, no edema Rate/Rhythm: regular rate and + irregularly irregular Heart Sounds: normal S1, normal S2 and + click Extremities: + edema Gastrointestinal (Abdomen): Inspection/Auscultation: abdomen normal to inspection; abdomen not distended Musculoskeletal: no cyanosis or clubbing, extremities motor strength 5/5 Skin: no rashes, warm and dry Neurologic: moves all extremities and awake Psychiatric: Orientation: alert, oriented to person and cooperative Results & Data Results & Data ([facility]) Vital Signs (Past 12 Hours) Vital Signs Temp Pulse Resp BP Pulse Ox 02/13/21 10:57 36.6 C 90 18 129/81 96 02/13/21 07:13 36.5 C 97 H 18 139/69 92 02/13/21 04:00 37.2 C 70 18 106/66 97 PG Care Time/CCT Total # of Minutes Spent Total Time Spent with Patient: Total time spent is greater than 50% in coordination of care (as documented) at patient's floor/unit and/or counseling patient: Coding Level of Care Code 52611 Subseq Hosp Care Lvl 2 Diagnoses Chronic diastolic (congestive) heart failure I50.32 GIB (gastrointestinal bleeding) K92.2 GI bleed type/associated pathology: unspecified gastrointestinal hemorrhage type Acute blood loss anemia D62 Supratherapeutic INR R79.1 Permanent atrial fibrillation I48.21 Acute pain of right hip M25.551 Diabetic peripheral neuropathy associated with type 2 diabetes mellitus E11.42 S/P aortic valve replacement Z95.2 History of Chris-en-Y gastric bypass Z98.84 Syncope R55 Diffuse arthralgia M25.50 L1 vertebral fracture S32.019A (1) GIB (gastrointestinal bleeding) GI bleed type/associated pathology: unspecified gastrointestinal hemorrhage type Qualified Code(s): K92.2 - Gastrointestinal hemorrhage, unspecified
[2021-02-13] MEDS: WARFARIN SOD 2.5 MG TAB PO SCH (17:03)
[2021-02-13] MEDS: traMADol HCL 50 MG TABLET PO PRN (22:25)
[2021-02-14] MEDS: ACETAMINOPHEN 325 MG TAB PO PRN ×2 (03:31→12:52)
[2021-02-14 06:05] LABS: Mean Corpuscular Hemoglobin 29.8 pg (25-34); Mean Corpuscular Hgb Conc 33.3 g/dL (32-36); Mean Corpuscular Volume 89.4 fL (80-100); Nucleated RBC # (auto) 0.17 K/uL (0-0); Nucleated RBC % (auto) 0.9 %; Platelet Count 435 K/uL (130-400); RDW Coefficient of Variation 16.7 % (11.5-14.5); RDW Standard Deviation 49.5 fL (36.4-46.3); Red Blood Count 2.35 M/uL (4.2-5.4); White Blood Count 18.83 K/uL (4.8-10.8)
[2021-02-14 06:34] LABS: Albumin Level 2.4 gm/dl (3.4-5.0); BUN Creatinine Ratio 21.1 (10-20); Calcium 8.1 mg/dl (8.5-10.1); Creatinine Clr Calc Pharmacy 87.9 ml/min; Est GFR (African American) 97.3; Est GFR (Non-African American) 83.9; Potassium 3.5 mmol/L (3.5-5.1)
[2021-02-14 06:35] LABS: INR 1.9 (0.9-1.1); Partial Thromboplastin Ratio 3.6; Prothrombin Time 18.2 Seconds (9.0-12.0)
[2021-02-14 06:36] LABS: Albumin Globulin Ratio 0.9 (0.9-2); Bilirubin,Total 0.4 mg/dl (0.2-1); Globulin 2.8 gm/dl (2.5-4.0); Phosphorus 3.3 mg/dl (2.5-4.9); Total Protein 5.2 gm/dl (6.4-8.2)
[2021-02-14 06:43] LABS: Partial Thromboplastin Time 95.6 Seconds (21.0-31.0)
[2021-02-14] MEDS: HEPARIN SODIUM/DEXTROSE 25,000 UNITS/500 ML BAG IV SCH ×2 (07:12→09:49)
[2021-02-14] MEDS: SUCRALFATE 1 GM/10 ML UDC PO SCH ×4 (07:54→19:24)
[2021-02-14] MEDS: INSULIN ASPART 100 UNITS/ML 3 ML PEN SC SCH ×5 (07:57→21:26)
[2021-02-14] MEDS: BUMETANIDE 4 MG in SYRINGE 0 ML IV SCH (07:58)
[2021-02-14] MEDS: METOPROLOL SUCC 50MG EXT REL TAB PO SCH ×2 (07:59→19:24)
[2021-02-14] MEDS: PANTOprazole 40 MG TAB PO SCH ×2 (07:59→19:25)
[2021-02-14] MEDS: LIDOCAINE 5% 1 PATCH TD SCH (07:59)
[2021-02-14] MEDS: SODIUM FERRIC GLUCONATE IV SCH (11:51)
[2021-02-14] MEDS: SODIUM CHLORIDE 0.9% IV SCH (11:51)
--- NOTE | 2021-02-14 14:00 | Hospitalist Progress Note ---
Date of Service February 14, 2021 Assessment & Plan (1) Chronic diastolic (congestive) heart failure: EF on echo on 02/12/2021 was 60% with mild concentric LVH. RVSP > 60 mmHg. Home weight she notes as ~215 lbs. Of note, this is iatrogenic from blood and holding her home diuretic, so I do NOT think this is an acute diastolic CHF exacerbation. - Continue Bumex 4 mg IV daily; will add metolazone tomorrow. - Continue daily weights and I&Os. (2) GIB (gastrointestinal bleeding): EGD on 02/10 showed areas of erythema and bleeding at anastomosis site of her Chris-en-Y gastrojejunostomy at 3 separate locations. - S/p 3 units of PRBC on 02/08. - Continue PPI PO BID & sucralfate per GI - Hemoglobin down to 7.0 on 02/13 -> No sign of active bleeding; will monitor. Started Ferrlicit per Dr. Sutton's recommendation x 5 doses. (3) Acute blood loss anemia: Symptomatic with lightheadedness and syncope. - S/p PRBCs as above (4) Supratherapeutic INR: INR was supra-therapeutic on 02/08 at 6.0. Given h/o mechanical aortic and mitral valve: risk of clots is elevated. - INR reversed & INR down to 1.2 on 02/11. - Now on heparin gtt and warfarin to return to anticoagulation -> INR is 1.9 today (02/14). (5) Permanent atrial fibrillation: HR presently in the 80s. - Continue metoprolol succinate 50mg BID for rate control with hold parameters - Anticoagulation as above (6) Acute pain of right hip: Lumbar radiculopathy from last admission. Improved with prednisone (but this was stopped due to GI bleed). - Consider gabapentin taper per last pain management note on 02/05 if reoccurs - Presently no pain. (7) Diabetic peripheral neuropathy associated with type 2 diabetes mellitus: HbA1C 6.4% in November 2020. - Consulted pharmacy for glycemic control while admitted with basal/bolus insulin -> Blood sugars in the 100 - 140 range in the last 24 hours. (8) S/P aortic valve replacement: [employer] mechanical mitral and aortic valves put in in 2011. She was told at the time that it was due to using the diet drug "Fen-Phen" (fenfluramine-phentermine). - As above (9) History of Chris-en-Y gastric bypass: Noted. Anastomosis site bleeding as above. (10) Syncope: Secondary to orthostatic hypotension from GI bleed as above. (11) Diffuse arthralgia: Initially presumed to be Lyme disease as her IgG was positive; however, it is a scattered set of immunoglobulins, so this is not likely to be a true positive. - Stopped doxycycline on admission (02/08) - Will see rheumatology when able. Presently using graduated pain medication Tylenol, tramadol, and Percocet PRN. (12) L1 vertebral fracture: Noted on CT A/P on 02/08. Suspect it is the cause of her right-sided lumbar radiculopathy and pain on last admission. - Monitor Admission and Anticipated Discharge Date Admission Date: February 08, 2021 Subjective Doing better today. Less pain. Reports no fevers/chills, chest pain, shortness of breath, abdominal pain, nausea, or vomiting. Physical Exam Constitutional: WD/WN, vitals as above Eyes: EOM intact bilaterally; no conjunctival abnormality ENMT: external ear and nose normal, oropharynx normal Neck: trachea midline, no thyromegaly normal visual inspection Respiratory: normal respiratory effort, lungs clear to auscultation no respiratory distress Cardiovascular: RRR, no murmur, no edema Rate/Rhythm: regular rate and + irregularly irregular Heart Sounds: normal S1, normal S2 and + click Extremities: + edema Gastrointestinal (Abdomen): Inspection/Auscultation: abdomen normal to inspection; abdomen not distended Musculoskeletal: no cyanosis or clubbing, extremities motor strength 5/5 Skin: no rashes, warm and dry Neurologic: moves all extremities and awake Psychiatric: Orientation: alert, oriented to person and cooperative Results & Data Results & Data ([facility]) Vital Signs (Past 12 Hours) Vital Signs Temp Pulse Pulse Resp BP BP BP 02/14/21 12:11 36.7 C 85 18 127/70 02/14/21 08:13 36.9 C 81 18 129/78 02/14/21 07:22 36.9 C 78 18 104/57 L 02/14/21 04:00 36.5 C 79 20 136/69 Pulse Ox 02/14/21 12:11 100 02/14/21 08:13 96 02/14/21 07:22 96 02/14/21 04:00 98 PG Care Time/CCT Total # of Minutes Spent Total Time Spent with Patient: Total time spent is greater than 50% in coordination of care (as documented) at patient's floor/unit and/or counseling patient: Coding Level of Care Code 86674 Subseq Hosp Care Lvl 2 Diagnoses Chronic diastolic (congestive) heart failure I50.32 GIB (gastrointestinal bleeding) K92.2 GI bleed type/associated pathology: unspecified gastrointestinal hemorrhage type Acute blood loss anemia D62 Supratherapeutic INR R79.1 Permanent atrial fibrillation I48.21 Acute pain of right hip M25.551 Diabetic peripheral neuropathy associated with type 2 diabetes mellitus E11.42 S/P aortic valve replacement Z95.2 History of Chris-en-Y gastric bypass Z98.84 Syncope R55 Diffuse arthralgia M25.50 L1 vertebral fracture S32.019A (1) GIB (gastrointestinal bleeding) GI bleed type/associated pathology: unspecified gastrointestinal hemorrhage type Qualified Code(s): K92.2 - Gastrointestinal hemorrhage, unspecified
[2021-02-14 14:50] LABS: Partial Thromboplastin Ratio 3.4
[2021-02-14] MEDS: WARFARIN SOD 2.5 MG TAB PO SCH (17:16)
[2021-02-14 22:47] LABS: Partial Thromboplastin Time 78.9 Seconds (21.0-31.0)
[2021-02-15] MEDS: ACETAMINOPHEN 325 MG TAB PO PRN (01:26)
[2021-02-15] MEDS: HEPARIN SODIUM/DEXTROSE 25,000 UNITS/500 ML BAG IV SCH ×2 (05:39→20:09)
[2021-02-15 05:44] LABS: Hematocrit (blood only) 19.7 % (37-47); Hemoglobin 6.5 g/dL (12.0-16.0); Mean Corpuscular Hemoglobin 29.3 pg (25-34); Mean Corpuscular Volume 88.7 fL (80-100); Mean Platelet Volume 8.5 fL (7.4-10.4); Nucleated RBC # (auto) 0.11 K/uL (0-0); Nucleated RBC % (auto) 0.8 %; Platelet Count 452 K/uL (130-400); RDW Coefficient of Variation 16.8 % (11.5-14.5); RDW Standard Deviation 49.7 fL (36.4-46.3); Red Blood Count 2.22 M/uL (4.2-5.4); White Blood Count 13.59 K/uL (4.8-10.8)
[2021-02-15] MEDS ORDERED: SODIUM CHLORIDE 0.9% 250 ML IV PRN ×2 (05:51→08:05)
[2021-02-15 05:55] LABS: BUN Creatinine Ratio 21.7 (10-20); Creatinine Clr Calc Pharmacy 87.9 ml/min; Est GFR (African American) 97.3; Est GFR (Non-African American) 83.9; Magnesium 1.9 mg/dl (1.8-2.4); Phosphorus 3.7 mg/dl (2.5-4.9)
[2021-02-15 06:01] LABS: INR 1.9 (0.9-1.1); Partial Thromboplastin Ratio 2.5; Prothrombin Time 18.2 Seconds (9.0-12.0)
[2021-02-15 06:07] LABS: Partial Thromboplastin Time 65.1 Seconds (21.0-31.0)
[2021-02-15] MEDS: LIDOCAINE 5% 1 PATCH TD SCH (07:39)
[2021-02-15] MEDS: BUMETANIDE 4 MG in SYRINGE 0 ML IV SCH (07:40)
[2021-02-15] MEDS: SUCRALFATE 1 GM/10 ML UDC PO SCH ×4 (07:40→20:10)
[2021-02-15] MEDS: metOLazone 5 MG TABLET PO SCH ×2 (07:40)
[2021-02-15] MEDS: PANTOprazole 40 MG TAB PO SCH ×2 (07:40→20:07)
[2021-02-15] MEDS: INSULIN ASPART 100 UNITS/ML 3 ML PEN SC SCH ×4 (07:48→20:30)
[2021-02-15] MEDS: SODIUM FERRIC GLUCONATE IV SCH (08:42)
[2021-02-15] MEDS: SODIUM CHLORIDE 0.9% IV SCH (08:42)
[2021-02-15] MEDS: METOPROLOL SUCC 50MG EXT REL TAB PO SCH ×2 (08:43→20:08)
--- NOTE | 2021-02-15 13:26 | Hospitalist Progress Note ---
Date of Service February 15, 2021 Assessment & Plan (1) Chronic diastolic (congestive) heart failure: EF on echo on 02/12/2021 was 60% with mild concentric LVH. RVSP > 60 mmHg. Home weight she notes as ~215 lbs. Of note, this is iatrogenic from blood and holding her home diuretic, so I do NOT think this is an acute diastolic CHF exacerbation. - Continue Bumex 4 mg IV daily. - Continue daily weights and I&Os. Is net negative 2L and reports eating less salt from the cafeteria. Will check standing weight. (2) GIB (gastrointestinal bleeding): EGD on 02/10 showed areas of erythema and bleeding at anastomosis site of her Chris-en-Y gastrojejunostomy at 3 separate locations. - S/p 3 units of PRBC on 02/08. - Continue PPI PO BID & sucralfate per GI - Hemoglobin down to 6.5 on 02/15 -> No sign of active bleeding. Started Ferrlicit on 02/[address] Sutton's recommendation x 5 doses. - Ordered 2 units of PRBCs on 02/15. Due to antibodies, takes about 24 hours to arrive. Sent [employer] a message re: possible EGD. I think this is continued slow bleed rather than acute/fast bleed as her BP and HR remain stable and she has minimal symptoms. (3) Acute blood loss anemia: Symptomatic with lightheadedness and syncope. - S/p PRBCs as above (4) Supratherapeutic INR: INR was supra-therapeutic on 02/08 at 6.0. Given h/o mechanical aortic and mitral valve: risk of clots is elevated. - INR reversed & INR down to 1.2 on 02/11. - Now on heparin gtt and warfarin to return to anticoagulation -> INR is 1.9 today (02/15). Despite anemia, will not reverse at this time. Will confer with GI and determine what values they would feel comfortable with EGD. (5) Permanent atrial fibrillation: HR presently in the 80s. - Continue metoprolol succinate 50mg BID for rate control with hold parameters - Anticoagulation as above (6) Acute pain of right hip: Lumbar radiculopathy from last admission. Improved with prednisone (but this was stopped due to GI bleed). - Consider gabapentin taper per last pain management note on 02/05 if reoccurs - Presently no pain. (7) Diabetic peripheral neuropathy associated with type 2 diabetes mellitus: HbA1C 6.4% in November 2020. - Consulted pharmacy for glycemic control while admitted with basal/bolus insulin -> Blood sugars in the 100 - 140 range in the last 24 hours. (8) S/P aortic valve replacement: [facility] mechanical mitral and aortic valves put in in 2011. She was told at the time that it was due to using the diet drug "Fen-Phen" (fenfluramine-phentermine). - As above (9) History of Chris-en-Y gastric bypass: Noted. Anastomosis site bleeding as above. (10) Syncope: Secondary to orthostatic hypotension from GI bleed as above. (11) Diffuse arthralgia: Initially presumed to be Lyme disease as her IgG was positive; however, it is a scattered set of immunoglobulins, so this is not likely to be a true positive. - Stopped doxycycline on admission (02/08) - Will see rheumatology when able. Presently using graduated pain medication Tylenol, tramadol, and Percocet PRN. (12) L1 vertebral fracture: Noted on CT A/P on 02/08. Suspect it is the cause of her right-sided lumbar radiculopathy and pain on last admission. - Monitor Admission and Anticipated Discharge Date Admission Date: February 08, 2021 Subjective Discouraged today by her lower blood count. Reports some mild dizziness when standing. Feels edema is improving. Reports no fevers/chills, chest pain, shortness of breath, abdominal pain, nausea, or vomiting. Physical Exam Constitutional: WD/WN, vitals as above Eyes: EOM intact bilaterally; no conjunctival abnormality ENMT: external ear and nose normal, oropharynx normal Neck: trachea midline, no thyromegaly normal visual inspection Respiratory: normal respiratory effort, lungs clear to auscultation no respiratory distress Cardiovascular: RRR, no murmur, no edema Rate/Rhythm: regular rate and + irregularly irregular Heart Sounds: normal S1, normal S2 and + click Extremities: + edema Gastrointestinal (Abdomen): Inspection/Auscultation: abdomen normal to inspection; abdomen not distended Musculoskeletal: no cyanosis or clubbing, extremities motor strength 5/5 Skin: no rashes, warm and dry Neurologic: moves all extremities and awake Psychiatric: Orientation: alert, oriented to person and cooperative Results & Data Results & Data ([facility]) Vital Signs (Past 12 Hours) Vital Signs Temp Pulse Pulse Resp BP Pulse Ox 02/15/21 10:45 36.7 C 87 19 128/70 100 02/15/21 08:00 81 02/15/21 07:53 36.6 C 77 20 159/80 H 98 02/15/21 03:57 36.7 C 75 20 134/69 97 PG Care Time/CCT Total # of Minutes Spent Total Time Spent with Patient: Total time spent is greater than 50% in coordination of care (as documented) at patient's floor/unit and/or counseling patient: Coding Level of Care Code 30162 Subseq Hosp Care Lvl 3 Diagnoses Chronic diastolic (congestive) heart failure I50.32 GIB (gastrointestinal bleeding) K92.2 GI bleed type/associated pathology: unspecified gastrointestinal hemorrhage type Acute blood loss anemia D62 Supratherapeutic INR R79.1 Permanent atrial fibrillation I48.21 Acute pain of right hip M25.551 Diabetic peripheral neuropathy associated with type 2 diabetes mellitus E11.42 S/P aortic valve replacement Z95.2 History of Chris-en-Y gastric bypass Z98.84 Syncope R55 Diffuse arthralgia M25.50 L1 vertebral fracture S32.019A (1) GIB (gastrointestinal bleeding) GI bleed type/associated pathology: unspecified gastrointestinal hemorrhage type Qualified Code(s): K92.2 - Gastrointestinal hemorrhage, unspecified
--- NOTE | 2021-02-15 14:04 | Gastroenterology Progress Note ---
Date of Service February 15, 2021 Assessment & Plan Admission and Anticipated Discharge Date Admission Date: February 08, 2021 Subjective Reviewed chart and labs. Pt with recent EGD for GIB, found to have oozing from RYGB suture, s/p heater probe to site. On ac with coumadin INR 2 and heparin drip for MVR. Hgb around 7 this past week, 6.5 today. No overt GIB reported in med record, BUN WNL, and VS stable. SHe may be oozing from cautery site. No need for EGD at this time. Spoke to Dr. Arreola - cont oral BID PPI, carafate. OK to cont anti-coagulation but it seems prudent to avoid a coumadin load. Follow hgb daily. Results & Data ([facility]) Vital Signs (Past 12 Hours) Vital Signs Temp Pulse Pulse Resp BP Pulse Ox 02/15/21 10:45 36.7 C 87 19 128/70 100 02/15/21 08:00 81 02/15/21 07:53 36.6 C 77 20 159/80 H 98 02/15/21 03:57 36.7 C 75 20 134/69 97
[2021-02-15] MEDS: POTASSIUM CHLORIDE CRTAB 20 MEQ TABCR PO SCH ×2 (14:32→20:11)
[2021-02-15] MEDS: traMADol HCL 50 MG TABLET PO PRN (16:02)
[2021-02-15] MEDS: WARFARIN SOD 2.5 MG TAB PO SCH (16:47)
[2021-02-16] MEDS: traMADol HCL 50 MG TABLET PO PRN (00:48)
[2021-02-16 09:23] LABS: Hematocrit (blood only) 28.5 % (37-47); Hemoglobin 9.2 g/dL (12.0-16.0); Mean Corpuscular Hemoglobin 28.5 pg (25-34); Mean Corpuscular Hgb Conc 32.3 g/dL (32-36); Mean Corpuscular Volume 88.2 fL (80-100); Mean Platelet Volume 8.6 fL (7.4-10.4); Nucleated RBC # (auto) 0.19 K/uL (0-0); Nucleated RBC % (auto) 1.5 %; Platelet Count 511 K/uL (130-400); RDW Standard Deviation 49.9 fL (36.4-46.3); Red Blood Count 3.23 M/uL (4.2-5.4); White Blood Count 12.74 K/uL (4.8-10.8)
[2021-02-16] MEDS: SUCRALFATE 1 GM/10 ML UDC PO SCH ×4 (09:25→20:55)
[2021-02-16] MEDS: INSULIN ASPART 100 UNITS/ML 3 ML PEN SC SCH ×4 (09:26→21:08)
[2021-02-16] MEDS: BUMETANIDE 4 MG in SYRINGE 0 ML IV SCH (09:26)
[2021-02-16] MEDS: SODIUM FERRIC GLUCONATE IV SCH (09:27)
[2021-02-16] MEDS: SODIUM CHLORIDE 0.9% IV SCH (09:27)
[2021-02-16] MEDS: LIDOCAINE 5% 1 PATCH TD SCH (09:32)
[2021-02-16] MEDS: METOPROLOL SUCC 50MG EXT REL TAB PO SCH ×2 (09:34→20:55)
[2021-02-16] MEDS: PANTOprazole 40 MG TAB PO SCH ×2 (09:35→20:55)
[2021-02-16 09:44] LABS: INR 1.7 (0.9-1.1); Prothrombin Time 16.3 Seconds (9.0-12.0)
[2021-02-16 09:46] LABS: BUN Creatinine Ratio 17.5 (10-20); Calcium 9.1 mg/dl (8.5-10.1); Creatinine Clr Calc Pharmacy 76.7 ml/min; Est GFR (African American) 82.9; Est GFR (Non-African American) 71.5; Phosphorus 3.7 mg/dl (2.5-4.9); Potassium 3.7 mmol/L (3.5-5.1)
[2021-02-16 10:49] LABS: Partial Thromboplastin Time 51.9 Seconds (21.0-31.0)
[2021-02-16] MEDS: WARFARIN SOD 2.5 MG TAB PO SCH (16:35)
[2021-02-16] MEDS ORDERED: WARFARIN SOD 0.5 MG TAB PO ONE (18:19)
--- NOTE | 2021-02-16 20:27 | Hospitalist Progress Note ---
Date of Service February 16, 2021 Assessment & Plan (1) Chronic diastolic (congestive) heart failure: EF on echo on 02/12/2021 was 60% with mild concentric LVH. RVSP > 60 mmHg. Home weight she notes as ~215 lbs. Of note, this is iatrogenic from blood and holding her home diuretic, so I do NOT think this is an acute diastolic CHF exacerbation. - Continue Bumex 4 mg IV daily. - Continue daily weights and I&Os. Is net negative 2L and reports eating less salt from the cafeteria. Will check standing weight. -Patient appears to be improving. will continue to monitor. (2) GIB (gastrointestinal bleeding): EGD on 02/10 showed areas of erythema and bleeding at anastomosis site of her Chris-en-Y gastrojejunostomy at 3 separate locations. - S/p 3 units of PRBC on 02/08. - Continue PPI PO BID & sucralfate per GI - Hemoglobin down to 6.5 on 02/15 -> No sign of active bleeding. Started Ferrlicit on 02/[address] Sutton's recommendation x 5 doses. - Ordered 2 units of PRBCs on 02/15. Due to antibodies, takes about 24 hours to arrive. Sent [employer] a message re: possible EGD. I think this is continued slow bleed rather than acute/fast bleed as her BP and HR remain stable and she has minimal symptoms. (3) Acute blood loss anemia: Symptomatic with lightheadedness and syncope. - S/p PRBCs as above -Hemoglobin above 9. (4) Supratherapeutic INR: INR was supra-therapeutic on 02/08 at 6.0. Given h/o mechanical aortic and mitral valve: risk of clots is elevated. - INR reversed & INR down to 1.2 on 02/11. - Now on heparin gtt and warfarin to return to anticoagulation -> INR is 1.9 today (02/15). Despite anemia, will not reverse at this time. Will confer with GI and determine what values they would feel comfortable with EGD. -Will increase coumadin to 3 mg daily and monitor INR. (5) Permanent atrial fibrillation: HR presently in the 80s. - Continue metoprolol succinate 50mg BID for rate control with hold parameters - Anticoagulation as above (6) Acute pain of right hip: Lumbar radiculopathy from last admission. Improved with prednisone (but this was stopped due to GI bleed). - Consider gabapentin taper per last pain management note on 02/05 if reoccurs - Presently no pain. (7) Diabetic peripheral neuropathy associated with type 2 diabetes mellitus: HbA1C 6.4% in November 2020. - Consulted pharmacy for glycemic control while admitted with basal/bolus insulin -> Blood sugars in the 100 - 140 range in the last 24 hours. (8) S/P aortic valve replacement: [facility] mechanical mitral and aortic valves put in in 2011. She was told at the time that it was due to using the diet drug "Fen-Phen" (fenfluramine-phentermine). - As above (9) History of Chris-en-Y gastric bypass: Noted. Anastomosis site bleeding as above. (10) Syncope: Secondary to orthostatic hypotension from GI bleed as above. (11) Diffuse arthralgia: Initially presumed to be Lyme disease as her IgG was positive; however, it is a scattered set of immunoglobulins, so this is not likely to be a true positive. - Stopped doxycycline on admission (02/08) - Will see rheumatology when able. Presently using graduated pain medication Tylenol, tramadol, and Percocet PRN. (12) L1 vertebral fracture: Noted on CT A/P on 02/08. Suspect it is the cause of her right-sided lumbar radiculopathy and pain on last admission. - Monitor Admission and Anticipated Discharge Date Admission Date: February 08, 2021 Subjective 75 yo female reports feeling well. She has no new complaints at this time. Review of Systems Review of Systems: All systems reviewed & are unremarkable except as noted in HPI & below Physical Exam Physical Exam: Constitutional: well developed; + not well nourished and no acute distress Eyes: + anicteric sclerae; normal pupil size ENMT: external ear and nose normal, oropharynx normal Neck: trachea midline, no thyromegaly Respiratory: normal respiratory effort, lungs clear to auscultation Cardiovascular: Rate/Rhythm: regular rate and + irregularly irregular Heart Sounds: no murmur Vessels: no JVD Extremities: normal capillary refill (5-6 seconds peripherally, normal centrally) and + pedal edema (!+ edema to knee equal b/l); no calf tenderness Gastrointestinal (Abdomen): Inspection/Auscultation: abdomen normal to inspection and normal bowel sounds Percussion/Palpation: abdomen soft; abdomen nontender, no guarding and abdomen not rigid Musculoskeletal: no cyanosis or clubbing, extremities motor strength 5/5 (No joint pain) Skin: no rashes, warm and dry Neurologic: moves all extremities and awake; not confused Psychiatric: A+Ox3, euthymic affect Results & Data Results & Data ([facility]) Vital Signs (Past 12 Hours) Vital Signs Temp Pulse Pulse Resp BP Pulse Ox 02/16/21 19:49 36.8 C 82 19 140/84 99 02/16/21 16:00 70 02/16/21 15:39 36.5 C 89 21 155/97 H 98 02/16/21 10:56 36.4 C L 75 20 148/83 H 99 PG Care Time/CCT Total # of Minutes Spent Total Time Spent with Patient: Total time spent is greater than 50% in coordination of care (as documented) at patient's floor/unit and/or counseling patient: Coding Level of Care Code 69463 Subseq Hosp Care Lvl 3 Diagnoses Chronic diastolic (congestive) heart failure I50.32 GIB (gastrointestinal bleeding) K92.2 GI bleed type/associated pathology: unspecified gastrointestinal hemorrhage type Acute blood loss anemia D62 Supratherapeutic INR R79.1 Permanent atrial fibrillation I48.21 Acute pain of right hip M25.551 Diabetic peripheral neuropathy associated with type 2 diabetes mellitus E11.42 S/P aortic valve replacement Z95.2 History of Chris-en-Y gastric bypass Z98.84 Syncope R55 Diffuse arthralgia M25.50 L1 vertebral fracture S32.019A Time Spent (min) 35 (1) GIB (gastrointestinal bleeding) GI bleed type/associated pathology: unspecified gastrointestinal hemorrhage type Qualified Code(s): K92.2 - Gastrointestinal hemorrhage, unspecified
[2021-02-17] MEDS: HEPARIN SODIUM/DEXTROSE 25,000 UNITS/500 ML BAG IV SCH (04:06)
[2021-02-17 06:33] LABS: Partial Thromboplastin Ratio 2.1
[2021-02-17 06:38] LABS: Partial Thromboplastin Time 54.9 Seconds (21.0-31.0)
[2021-02-17] MEDS: LIDOCAINE 5% 1 PATCH TD SCH (08:00)
[2021-02-17] MEDS: BUMETANIDE 4 MG in SYRINGE 0 ML IV SCH (08:00)
[2021-02-17] MEDS: SUCRALFATE 1 GM/10 ML UDC PO SCH ×4 (08:00→21:05)
[2021-02-17] MEDS: INSULIN ASPART 100 UNITS/ML 3 ML PEN SC SCH ×4 (08:00→21:06)
[2021-02-17] MEDS: PANTOprazole 40 MG TAB PO SCH ×2 (08:01→21:07)
[2021-02-17] MEDS: METOPROLOL SUCC 50MG EXT REL TAB PO SCH ×2 (08:01→21:08)
[2021-02-17 09:03] LABS: Hematocrit (blood only) 26.7 % (37-47); Hemoglobin 8.7 g/dL (12.0-16.0); Mean Corpuscular Hemoglobin 28.8 pg (25-34); Mean Corpuscular Hgb Conc 32.6 g/dL (32-36); Mean Corpuscular Volume 88.4 fL (80-100); Nucleated RBC # (auto) 0.19 K/uL (0-0); Nucleated RBC % (auto) 1.4 %; Platelet Count 538 K/uL (130-400); RDW Coefficient of Variation 17.8 % (11.5-14.5); RDW Standard Deviation 51.1 fL (36.4-46.3); Red Blood Count 3.02 M/uL (4.2-5.4); White Blood Count 12.79 K/uL (4.8-10.8)
[2021-02-17 09:33] LABS: INR 1.8 (0.9-1.1); Prothrombin Time 17.2 Seconds (9.0-12.0)
[2021-02-17] MEDS: SODIUM CHLORIDE 0.9% IV SCH (09:35)
[2021-02-17] MEDS: SODIUM FERRIC GLUCONATE IV SCH (09:35)
--- NOTE | 2021-02-17 10:01 | Gastroenterology Progress Note ---
Date of Service February 17, 2021 Assessment & Plan (1) Hematemesis: (2) History of Chris-en-Y gastric bypass: (3) Acute blood loss anemia: -Continue current therapy with Protonix 40 mg BID and Carafate 1 g ACHS. -Discussed consideration of repeat endoscopy and patient declines at this time. -Continue to trend H&H and transfuse as appropriate. Receiving IV iron. Admission and Anticipated Discharge Date Admission Date: February 08, 2021 Supervising Physician Co-Signing Physician Notes Agree with PAT Mendez as above Abd: Soft, NT, ND, +BS Patient with large brown BM last night No Overt GI bleeding despite IV heparin and PO warfarin therapy No plans for repeat endoscopic workup at present Continue current therapy and supportive care Subjective Patient did have a hemoglobin drop to 6.5 over the weekend. Case was discussed with Dr. Johnson covering our GI service over the weekend. Due to lack of overt GIB symptoms, conservative measures were recommended. She did have a blood transfusion which improved her hemoglobin to 9.2 although per Samson Moreno RN, her hemoglobin did drop to 8.7. The patient states she did have a large bowel movement this morning that was not grossly bloody or melanotic. No current abdominal pain or n/v. Tolerating diet. States she does not wish to have invasive GI work up unless absolutely necessary as she reports having an extensive GI work up in April of 2020 at [facility], including a VCE which was unremarkable. Review of Systems Constitutional: as per Subjective / HPI Respiratory: no cough and no dyspnea Cardiovascular: no chest pain and no palpitations Gastrointestinal: as per Subjective / HPI Physical Exam Constitutional: WD/WN, vitals as above well developed and well nourished Neck: normal visual inspection Respiratory: normal respiratory effort, lungs clear to auscultation Cardiovascular: Rate/Rhythm: regular rate and regular rhythm Heart Sounds: + murmur Gastrointestinal (Abdomen): normal bowel sounds, soft, nontender, no hepatosplenomegaly Results & Data Results & Data ([facility]) Vital Signs (Past 12 Hours) Vital Signs Temp Pulse Resp BP Pulse Ox 02/17/21 07:19 36.5 C 87 18 148/74 H 95 02/17/21 02:50 36.7 C 74 20 167/81 H 98 02/16/21 23:26 36.8 C 71 20 127/73 97 Laboratory Results Abnormal lab results 02/15/21 02/16/21 02/16/21 Range/Units 08:26 09:16 11:17 WBC (4.8-10.8) K/uL RBC (4.2-5.4) M/uL Hgb (12.0-16.0) g/dL Hct (37-47) % RDW Std Deviation (36.4-46.3) fL RDW Coeff of Donald (11.5-14.5) % Plt Count (130-400) K/uL Absolute Nucleated RBC (0-0) K/uL PT 16.3 H (9.0-12.0) Seconds INR 1.7 H (0.9-1.1) APTT 51.9 H* (21.0-31.0) Seconds POC Glucose 106 H (70-99) mg/dl Antibody Screen POSITIVE A Crossmatch See Detail 02/16/21 02/16/21 02/17/21 Range/Units 16:14 20:39 05:42 WBC (4.8-10.8) K/uL RBC (4.2-5.4) M/uL Hgb (12.0-16.0) g/dL Hct (37-47) % RDW Std Deviation (36.4-46.3) fL RDW Coeff of Donald (11.5-14.5) % Plt Count (130-400) K/uL Absolute Nucleated RBC (0-0) K/uL PT 17.2 H (9.0-12.0) Seconds INR 1.8 H (0.9-1.1) APTT 54.9 H* (21.0-31.0) Seconds POC Glucose 110 H 128 H (70-99) mg/dl Antibody Screen Crossmatch 02/17/21 02/17/21 Range/Units 07:15 08:26 WBC 12.79 H (4.8-10.8) K/uL RBC 3.02 L (4.2-5.4) M/uL Hgb 8.7 L (12.0-16.0) g/dL Hct 26.7 L (37-47) % RDW Std Deviation 51.1 H (36.4-46.3) fL RDW Coeff of Donald 17.8 H (11.5-14.5) % Plt Count 538 H (130-400) K/uL Absolute Nucleated RBC 0.19 H (0-0) K/uL PT (9.0-12.0) Seconds INR (0.9-1.1) APTT (21.0-31.0) Seconds POC Glucose 113 H (70-99) mg/dl Antibody Screen Crossmatch PG Care Time/CCT Total # of Minutes Spent Total Time Spent with Patient: Total time spent is greater than 50% in coordination of care (as documented) at patient's floor/unit and/or counseling patient: Coding Level of Care Code 37155 Subseq Hosp Care Lvl 3 Diagnoses Hematemesis K92.0 History of Chris-en-Y gastric bypass Z98.84 Acute blood loss anemia D62
[2021-02-17] MEDS: ACETAMINOPHEN 325 MG TAB PO PRN (12:20)
[2021-02-17] MEDS: WARFARIN SOD 3 MG TAB PO SCH (17:08)
--- NOTE | 2021-02-17 21:23 | Hospitalist Progress Note ---
Date of Service February 17, 2021 Assessment & Plan (1) Chronic diastolic (congestive) heart failure: EF on echo on 02/12/2021 was 60% with mild concentric LVH. RVSP > 60 mmHg. Home weight she notes as ~215 lbs. Of note, this is iatrogenic from blood and holding her home diuretic, so I do NOT think this is an acute diastolic CHF exacerbation. - Continue Bumex 4 mg IV daily. - Continue daily weights and I&Os. Is net negative 2L and reports eating less salt from the cafeteria. Will check standing weight. -Patient appears to be improving. will continue to monitor and keep on Bumex. (2) GIB (gastrointestinal bleeding): EGD on 02/10 showed areas of erythema and bleeding at anastomosis site of her Chris-en-Y gastrojejunostomy at 3 separate locations. - S/p 3 units of PRBC on 02/08. - Continue PPI PO BID & sucralfate per GI - Hemoglobin down to 6.5 on 02/15 -> No sign of active bleeding. Started Ferrlicit on 02/[address] Sutton's recommendation x 5 doses. - Ordered 2 units of PRBCs on 02/15. Due to antibodies, takes about 24 hours to arrive. Sent [employer] a message re: possible EGD. I think this is continued slow bleed rather than acute/fast bleed as her BP and HR remain stable and she has minimal symptoms. (3) Acute blood loss anemia: Symptomatic with lightheadedness and syncope. - S/p PRBCs as above -Hemoglobin above 9. (4) Supratherapeutic INR: INR was supra-therapeutic on 02/08 at 6.0. Given h/o mechanical aortic and mitral valve: risk of clots is elevated. - INR reversed & INR down to 1.2 on 02/11. - Now on heparin gtt and warfarin to return to anticoagulation -> INR is 1.9 today (02/15). Despite anemia, will not reverse at this time. Will confer with GI and determine what values they would feel comfortable with EGD. -Will increase coumadin to 3 mg daily and monitor INR. (5) Permanent atrial fibrillation: HR presently in the 80s. - Continue metoprolol succinate 50mg BID for rate control with hold parameters - Anticoagulation as above (6) Acute pain of right hip: Lumbar radiculopathy from last admission. Improved with prednisone (but this was stopped due to GI bleed). - Consider gabapentin taper per last pain management note on 02/05 if reoccurs - Presently no pain. (7) Diabetic peripheral neuropathy associated with type 2 diabetes mellitus: HbA1C 6.4% in November 2020. - Consulted pharmacy for glycemic control while admitted with basal/bolus insuli n -> Blood sugars in the 100 - 140 range in the last 24 hours. (8) S/P aortic valve replacement: [facility] mechanical mitral and aortic valves put in in 2011. She was told at the time that it was due to using the diet drug "Fen-Phen" (fenfluramine-phentermine). - As above (9) History of Chris-en-Y gastric bypass: Noted. Anastomosis site bleeding as above. (10) Syncope: Secondary to orthostatic hypotension from GI bleed as above. (11) Diffuse arthralgia: Initially presumed to be Lyme disease as her IgG was positive; however, it is a scattered set of immunoglobulins, so this is not likely to be a true positive. - Stopped doxycycline on admission (02/08) - Will see rheumatology when able. Presently using graduated pain medication Tylenol, tramadol, and Percocet PRN. (12) L1 vertebral fracture: Noted on CT A/P on 02/08. Suspect it is the cause of her right-sided lumbar radiculopathy and pain on last admission. - Monitor Admission and Anticipated Discharge Date Admission Date: February 08, 2021 Subjective 75 yo female reports feeling well. Patient denies any new symptoms at this time. Review of Systems Review of Systems: All systems reviewed & are unremarkable except as noted in HPI & below Physical Exam Physical Exam: Constitutional: well developed; + not well nourished and no acute distress Eyes: + anicteric sclerae; normal pupil size ENMT: external ear and nose normal, oropharynx normal Neck: trachea midline, no thyromegaly Respiratory: normal respiratory effort, lungs clear to auscultation Cardiovascular: Rate/Rhythm: regular rate and + irregularly irregular Heart Sounds: no murmur Vessels: no JVD Extremities: normal capillary refill and + pedal edema (!+ edema to knee equal b/l); no calf tenderness Gastrointestinal (Abdomen): Inspection/Auscultation: abdomen normal to inspection and normal bowel sounds Percussion/Palpation: abdomen soft; abdomen nontender, no guarding and abdomen not rigid Musculoskeletal: no cyanosis or clubbing, extremities motor strength 5/5 (No joint pain) Skin: no rashes, warm and dry Neurologic: moves all extremities and awake; not confused Psychiatric: A+Ox3, euthymic affect Results & Data Results & Data ([facility]) Vital Signs (Past 12 Hours) Vital Signs Temp Pulse Resp BP Pulse Ox 02/17/21 19:21 36.5 C 78 18 135/73 97 02/17/21 16:07 36.4 C L 81 18 140/78 97 02/17/21 11:50 36.4 C L 94 H 20 177/82 H 94 PG Care Time/CCT Total # of Minutes Spent Total Time Spent with Patient: Total time spent is greater than 50% in coordination of care (as documented) at patient's floor/unit and/or counseling patient: Coding Level of Care Code 88828 Subseq Hosp Care Lvl 2 Diagnoses Chronic diastolic (congestive) heart failure I50.32 GIB (gastrointestinal bleeding) K92.2 GI bleed type/associated pathology: unspecified gastrointestinal hemorrhage type Acute blood loss anemia D62 Supratherapeutic INR R79.1 Permanent atrial fibrillation I48.21 Acute pain of right hip M25.551 Diabetic peripheral neuropathy associated with type 2 diabetes mellitus E11.42 S/P aortic valve replacement Z95.2 History of Chris-en-Y gastric bypass Z98.84 Syncope R55 Diffuse arthralgia M25.50 L1 vertebral fracture S32.019A Time Spent (min) 25 (1) GIB (gastrointestinal bleeding) GI bleed type/associated pathology: unspecified gastrointestinal hemorrhage type Qualified Code(s): K92.2 - Gastrointestinal hemorrhage, unspecified
[2021-02-18] MEDS: ACETAMINOPHEN 325 MG TAB PO PRN (02:12)
[2021-02-18] MEDS: HEPARIN SODIUM/DEXTROSE 25,000 UNITS/500 ML BAG IV SCH (05:57)
[2021-02-18] MEDS: BUMETANIDE 4 MG in SYRINGE 0 ML IV SCH (07:55)
[2021-02-18] MEDS: METOPROLOL SUCC 50MG EXT REL TAB PO SCH ×2 (07:56→20:36)
[2021-02-18] MEDS: SUCRALFATE 1 GM/10 ML UDC PO SCH ×4 (07:56→20:36)
[2021-02-18] MEDS: PANTOprazole 40 MG TAB PO SCH ×2 (07:56→20:36)
[2021-02-18] MEDS: LIDOCAINE 5% 1 PATCH TD SCH (08:03)
[2021-02-18 08:06] LABS: Hematocrit (blood only) 29.6 % (37-47); Hemoglobin 9.6 g/dL (12.0-16.0); Mean Corpuscular Hemoglobin 29.3 pg (25-34); Mean Corpuscular Hgb Conc 32.4 g/dL (32-36); Mean Corpuscular Volume 90.2 fL (80-100); Mean Platelet Volume 9.2 fL (7.4-10.4); Nucleated RBC # (auto) 0.18 K/uL (0-0); Nucleated RBC % (auto) 1.1 %; Platelet Count 585 K/uL (130-400); RDW Coefficient of Variation 19.1 % (11.5-14.5); RDW Standard Deviation 52.6 fL (36.4-46.3); Red Blood Count 3.28 M/uL (4.2-5.4); White Blood Count 16.46 K/uL (4.8-10.8)
[2021-02-18] MEDS: INSULIN ASPART 100 UNITS/ML 3 ML PEN SC SCH ×4 (08:28→20:45)
[2021-02-18 08:34] LABS: INR 1.8 (0.9-1.1); Partial Thromboplastin Ratio 1.9; Prothrombin Time 17.4 Seconds (9.0-12.0)
[2021-02-18 08:37] LABS: Partial Thromboplastin Time 49.6 Seconds (21.0-31.0)
[2021-02-18 08:40] LABS: BUN Creatinine Ratio 17.9 (10-20); Calcium 9.4 mg/dl (8.5-10.1); Creatinine Clr Calc Pharmacy 71.4 ml/min; Est GFR (African American) 79.4; Est GFR (Non-African American) 68.5; Potassium 2.6 mmol/L (3.5-5.1)
[2021-02-18] MEDS: POTASSIUM CHLORIDE / WTR 10 MEQ/100 ML PLCT IV SCH ×4 (10:28→15:45)
[2021-02-18] MEDS: POTASSIUM CHLORIDE CRTAB 20 MEQ TABCR PO SCH ×2 (13:23→20:36)
[2021-02-18] MEDS: WARFARIN SOD 3 MG TAB PO SCH (15:45)
--- NOTE | 2021-02-18 21:11 | Hospitalist Progress Note ---
Date of Service February 18, 2021 Assessment & Plan (1) Chronic diastolic (congestive) heart failure: EF on echo on 02/12/2021 was 60% with mild concentric LVH. RVSP > 60 mmHg. Home weight she notes as ~215 lbs. Of note, this is iatrogenic from blood and holding her home diuretic, so I do NOT think this is an acute diastolic CHF exacerbation. - Continue Bumex 4 mg IV daily. -Patient is tolerating diuretic dose. -Creatinine is not increasing. - Continue daily weights and I&Os. Is net negative 4L and reports eating less salt from the cafeteria. Will check standing weight. -Patient appears to be improving. will continue to monitor and keep on Bumex. (2) GIB (gastrointestinal bleeding): EGD on 02/10 showed areas of erythema and bleeding at anastomosis site of her Chris-en-Y gastrojejunostomy at 3 separate locations. - S/p 3 units of PRBC on 02/08. - Continue PPI PO BID & sucralfate per GI - Hemoglobin down to 6.5 on 02/15 -> No sign of active bleeding. Started Ferrlicit on 02/[address] Sutton's recommendation x 5 doses. - Ordered 2 units of PRBCs on 02/15. Due to antibodies, takes about 24 hours to arrive. Sent [employer] a message re: possible EGD. I think this is continued slow bleed rather than acute/fast bleed as her BP and HR remain stable and she has minimal symptoms. (3) Acute blood loss anemia: Symptomatic with lightheadedness and syncope. - S/p PRBCs as above -Hemoglobin appears stable. (4) Supratherapeutic INR: INR was supra-therapeutic on 02/08 at 6.0. Given h/o mechanical aortic and mitral valve: risk of clots is elevated. - INR reversed & INR down to 1.2 on 02/11. - Now on heparin gtt and warfarin to return to anticoagulation -> INR is 1.9 today (02/15). Despite anemia, will not reverse at this time. Will confer with GI and determine what values they would feel comfortable with EGD. -Will increase coumadin to 3 mg daily and monitor INR. -INR has not changed, will continue current dose. (5) Permanent atrial fibrillation: HR presently in the 80s. - Continue metoprolol succinate 50mg BID for rate control with hold parameters - Anticoagulation as above -May neeed to consider increasing dose of metoprolol succinate. will discuss with cardio. (6) Acute pain of right hip: Lumbar radiculopathy from last admission. Improved with prednisone (but this was stopped due to GI bleed). - Consider gabapentin taper per last pain management note on 02/05 if reoccurs - Presently no pain. (7) Diabetic peripheral neuropathy associated with type 2 diabetes mellitus: HbA1C 6.4% in November 2020. - Consulted pharmacy for glycemic control while admitted with basal/bolus insulin -> Blood sugars in the 100 - 140 range in the last 24 hours. (8) S/P aortic valve replacement: [facility] mechanical mitral and aortic valves put in in 2011. She was told at the time that it was due to using the diet drug "Fen-Phen" (fenfluramine-phentermine). - As above (9) History of Chris-en-Y gastric bypass: Noted. Anastomosis site bleeding as above. (10) Syncope: Secondary to orthostatic hypotension from GI bleed as above. (11) Diffuse arthralgia: Initially presumed to be Lyme disease as her IgG was positive; however, it is a scattered set of immunoglobulins, so this is not likely to be a true positive. - Stopped doxycycline on admission (02/08) - Will see rheumatology when able. Presently using graduated pain medication Tylenol, tramadol, and Percocet PRN. (12) L1 vertebral fracture: Noted on CT A/P on 02/08. Suspect it is the cause of her right-sided lumbar radiculopathy and pain on last admission. - Monitor Admission and Anticipated Discharge Date Admission Date: February 08, 2021 Subjective 75 yo male reports feeling well. She wants to be discharged soon. She did have an episode fo tachycardia when she was ambulating to the bathroom today. HR in the 160s. Review of Systems Review of Systems: All systems reviewed & are unremarkable except as noted in HPI & below Physical Exam Physical Exam: Constitutional: well developed; + not well nourished and no acute distress Eyes: + anicteric sclerae; normal pupil size ENMT: external ear and nose normal, oropharynx normal Neck: trachea midline, no thyromegaly Respiratory: normal respiratory effort, lungs clear to auscultation Cardiovascular: Rate/Rhythm: regular rate and + irregularly irregular Heart Sounds: no murmur Vessels: no JVD Extremities: normal capillary refill and + pedal edema (!+ edema to knee equal b/l); no calf tenderness Gastrointestinal (Abdomen): Inspection/Auscultation: abdomen normal to inspection and normal bowel sounds Percussion/Palpation: abdomen soft; abdomen nontender, no guarding and abdomen not rigid Musculoskeletal: no cyanosis or clubbing, extremities motor strength 5/5 (No joint pain) Skin: no rashes, warm and dry Neurologic: moves all extremities and awake; not confused Psychiatric: A+Ox3, euthymic affect Results & Data Results & Data ([facility]) Vital Signs (Past 12 Hours) Vital Signs Temp Pulse Resp BP Pulse Ox 02/18/21 20:23 36.5 C 87 19 129/74 96 02/18/21 15:11 36.7 C 89 18 140/70 98 02/18/21 13:29 36.7 C 94 H 20 131/81 99 PG Care Time/CCT Total # of Minutes Spent Total Time Spent with Patient: Total time spent is greater than 50% in coordination of care (as documented) at patient's floor/unit and/or counseling patient: Coding Level of Care Code 01673 Subseq Hosp Care Lvl 3 Diagnoses Chronic diastolic (congestive) heart failure I50.32 GIB (gastrointestinal bleeding) K92.2 GI bleed type/associated pathology: unspecified gastrointestinal hemorrhage type Acute blood loss anemia D62 Supratherapeutic INR R79.1 Permanent atrial fibrillation I48.21 Acute pain of right hip M25.551 Diabetic peripheral neuropathy associated with type 2 diabetes mellitus E11.42 S/P aortic valve replacement Z95.2 History of Chris-en-Y gastric bypass Z98.84 Syncope R55 Diffuse arthralgia M25.50 L1 vertebral fracture S32.019A Time Spent (min) 35 (1) GIB (gastrointestinal bleeding) GI bleed type/associated pathology: unspecified gastrointestinal hemorrhage type Qualified Code(s): K92.2 - Gastrointestinal hemorrhage, unspecified
[2021-02-19] MEDS: ACETAMINOPHEN 325 MG TAB PO PRN (03:10)
[2021-02-19 06:17] LABS: Hematocrit (blood only) 26.3 % (37-47); Hemoglobin 8.6 g/dL (12.0-16.0); Mean Corpuscular Hemoglobin 29.4 pg (25-34); Mean Corpuscular Hgb Conc 32.7 g/dL (32-36); Mean Corpuscular Volume 89.8 fL (80-100); Mean Platelet Volume 9.1 fL (7.4-10.4); Nucleated RBC # (auto) 0.12 K/uL (0-0); Nucleated RBC % (auto) 0.9 %; Platelet Count 533 K/uL (130-400); RDW Coefficient of Variation 19.9 % (11.5-14.5); RDW Standard Deviation 55.4 fL (36.4-46.3); Red Blood Count 2.93 M/uL (4.2-5.4); White Blood Count 12.74 K/uL (4.8-10.8)
[2021-02-19 06:34] LABS: INR 2.2 (0.9-1.1); Partial Thromboplastin Ratio 2.2; Prothrombin Time 20.6 Seconds (9.0-12.0)
[2021-02-19 06:35] LABS: Partial Thromboplastin Time 57.3 Seconds (21.0-31.0)
[2021-02-19 06:53] LABS: BUN Creatinine Ratio 17.7 (10-20); Calcium 8.9 mg/dl (8.5-10.1); Creatinine Clr Calc Pharmacy 73.1 ml/min; Est GFR (African American) 81.7; Est GFR (Non-African American) 70.5
[2021-02-19] MEDS: BUMETANIDE 4 MG in SYRINGE 0 ML IV SCH (07:50)
[2021-02-19] MEDS: SUCRALFATE 1 GM/10 ML UDC PO SCH ×3 (07:50→16:24)
[2021-02-19] MEDS: POTASSIUM CHLORIDE CRTAB 20 MEQ TABCR PO SCH ×2 (07:51→14:08)
[2021-02-19] MEDS: LIDOCAINE 5% 1 PATCH TD SCH (07:51)
[2021-02-19] MEDS: METOPROLOL SUCC 50MG EXT REL TAB PO SCH (07:51)
[2021-02-19] MEDS: PANTOprazole 40 MG TAB PO SCH (07:52)
[2021-02-19] MEDS: INSULIN ASPART 100 UNITS/ML 3 ML PEN SC SCH ×3 (08:10→16:36)
--- NOTE | 2021-02-19 09:22 | Cardiology Consultation ---
Date of Consultation February 19, 2021 Assessment & Plan (1) Acute blood loss anemia: Mrs. Wagner is a 75 year old female with a history of Type 2 Diabetes Mellitus, Neuropathy, Hypertension, Dyslipidemia, Obesity s/p Gastric Bypass, Valvular Heart Disease s/p Mechanical AVR and MVR 2011 and Pericardial Window, Chronic Diastolic CHF, Carotid Artery Stenosis, ASCVD, Obstructive Sleep Apnea, Chronic Venous Insufficiency, and Permanent Atrial Fibrillation who was admitted on 02/08/21 with an acute GI bleed and acute blood loss anemia secondary to erosion at her gastrojejunostomy anastomosis. Hgb on admission was 5.6 g/dl. Current Hgb is 8.6 g/dl, down from 9.6 g/dl yesterday. EGD showed bleeding at gastrojejunostomy anastomosis suture site. Endoscissors were used to remove the suture and heater probe therapy was applied to 3 separate locations with mild oozing of bright red blood. Fulguration to ablate the lesions by heater probe was successful per Dr. Brizuela. (2) GIB (gastrointestinal bleeding): -- As outlined above. (3) Permanent atrial fibrillation: Patient with a history of valvular heart disease s/p mechanical AVR and mechanical MVR in 2011, severe biatrial dilation, and permanent A-Fib which is typically rate controlled. She is on Coumadin chronically. I suspect that her exaggerated HR response with ambulation is due to her underlying rhythm, anemia, and likely an element of deconditioning. Recommend the following: -- Keep Hgb as close to normal as possible. -- Consider increasing Metoprolol Succinate ER to 75 mg b.i.d. although patient did not have any limiting cardiopulmonary symptoms despite walking and having an elevated heart rate. -- Continue Coumadin with a goal INR of 2.5 to 3.5. -- Gradually increase aerobic activities as tolerated following discharge. (4) Chronic diastolic (congestive) heart failure: Patient appears to be euvolemic. -- Continue beta nick. -- Continue Bumex 1 mg b.i.d.. -- Continue Metolazone 5 mg daily as needed. -- Continue KCl 60 mEq daily. -- Maintain a low sodium diet. -- Monitor daily body weights. (5) S/P aortic valve replacement: [facility] AVR 2011. -- Recent echo shows mechanical AVR with mild aortic stenosis. -- Continue Coumadin for a goal INR of 2.5 to 3.5. (6) S/P mitral valve replacement: [facility] MVR 2011. -- Recent echo shows mechanical mitral valve with mild mitral stenosis. -- Continue Coumadin for a goal INR of 2.5 to 3.5. History of Present Illness Reason for Consultation: -- Tachycardia with ambulation. -- Permanent Atrial Fibrillation. Requesting Physician: Zacarias James Attending Physician: Fernie Lentz MD History of Present Illness Mrs. Wagner is a 75 year old female with a history of Type 2 Diabetes Mellitus, Neuropathy, Hypertension, Dyslipidemia, Obesity s/p Gastric Bypass, Valvular Heart Disease s/p Mechanical AVR and MVR 2011 and Pericardial Window, Chronic Diastolic CHF, Carotid Artery Stenosis, ASCVD, Obstructive Sleep Apnea, Chronic Venous Insufficiency, and Permanent Atrial Fibrillation who was admitted on 02/08/21 with an acute GI bleed and acute blood loss anemia secondary to erosion at her gastrojejunostomy anastomosis. Hgb on admission was 5.6 g/dl. Current Hgb is 8.6 g/dl, down from 9.6 g/dl yesterday. Patient states that she is feeling well, and much better than she did at the time of admission. As a result she has been ambulating in the hallways. Yesterday she took a brisk walk (4 laps around the old CCU) and while walking her HR went upp to 160 bpm, but returned quickly to baseline with rest. She felt fine during this walk and had no cardiopulmonary symptoms despite her elevated heart rate. Patient specifically denies any chest pain, heaviness, tightness, or pressure. She denies any exertional neck, jaw, back, or arm pain. She denies any SOB, unusual dyspnea on exertion, orthopnea, or PND. She denies any any sensation that her heart is racing. She denies any syncope, although she was quite lightheaded when her Hgb was down in the 5 to 6 range. She denies any symptoms suggestive of stroke or ministroke. She denies any further melena following her EGD. Allergies Allergy/AdvReac Type Severity Reaction Status Date / Time iron [From Venofer] Allergy Severe VENOFER Verified 02/14/21 08:26 INFUSION-RASH,WEAKNESS,BLEEDING-HOSPITALIZED iron dextran complex Allergy Severe RASH Verified 02/10/21 08:34 choline salicylate Allergy Intermediate TRILISATE-r Verified 02/10/21 08:34 nay magnesium salicylate Allergy Intermediate TRILISATE-r Verified 02/10/21 08:34 nay Trilisate Allergy Intermediate TRILISATE-r Verified 11/05/16 17:37 nay mometasone furoate Allergy Unknown Pt has no Verified 02/10/21 08:34 recollection of this Home Medications Medication Instructions Recorded Confirmed Type folic acid 1 mg tablet 1 mg PO QAM 05/06/20 02/08/21 History multivitamin 1 tab PO QAM 05/06/20 02/08/21 History BD Eclipse 25 gauge x 1" needle #3 ea NS 07/02/20 01/24/21 Rx metoprolol succinate 50 mg 50 mg PO BID tab 07/15/20 02/08/21 History tablet,extended release 24 hr warfarin 2.5 mg tablet 2.5 mg PO 6XWK 09/19/20 02/08/21 History bumetanide 1 mg PO DIRECTED PRN 01/02/21 02/08/21 History cyanocobalamin (vitamin B-12) 1,000 mcg IM Q4WK 01/02/21 02/08/21 History metolazone 5 mg PO DIRECTED PRN 01/02/21 02/08/21 History warfarin 5 mg PO WK 01/02/21 02/08/21 History oxycodone-acetaminophen 5 mg-325 1 tab PO Q6H PRN #14 tab 01/27/21 02/08/21 Rx mg tablet lidocaine 1 patch TRANSDERMAL QAM #20 ea 02/07/21 02/08/21 Rx atorvastatin 10 mg PO QAM 02/08/21 02/08/21 History potassium chloride 60 meq PO QAM 02/08/21 02/08/21 History prednisone 10 mg PO .TAPER 02/08/21 02/08/21 History tramadol 50 mg PO UD PRN 02/08/21 02/08/21 History Patient History Medical History Abnormal CT scan, chest Acute blood loss anemia Anastomotic ulcer S/P gastric bypass ASCVD (arteriosclerotic cardiovascular disease) Carotid stenosis, asymptomatic left Carpal tunnel syndrome Cervical radiculopathy Chronic diastolic (congestive) heart failure Diabetic peripheral neuropathy associated with type 2 diabetes mellitus Elevated alkaline phosphatase level Esophageal candidiasis Eustachian tube dysfunction Hearing loss HTN (hypertension) Hyperlipidemia Hypertension Hypokalemia shelter (current) use 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 Mitral regurgitation Nontoxic multinodular goiter Obesity Obstructive sleep apnea Osteoporosis Pericardial effusion Permanent atrial fibrillation Personal history of diabetic foot ulcer Spinal stenosis, lumbar region with neurogenic claudication Severe L4-5 Venous insufficiency (chronic) (peripheral) Vitamin B12 deficiency Vitamin D deficiency Surgical History H/O gastric bypass H/O hernia repair H/O splenectomy H/O splenectomy History of esophagogastroduodenoscopy (EGD) History of knee replacement bilateral History of total abdominal hysterectomy Hx of appendectomy Hx of cholecystectomy Hx of tonsillectomy S/P aortic valve replacement (2011) S/P gastric bypass S/P mitral valve replacement (2011) S/P pericardial window creation (2011) Status post panniculectomy Family History Mother Congestive heart failure Diabetes Hypertension Cardiac disorder Brother Diabetes Polycythemia Pharyngeal neoplasm Pulmonary embolism Father Lung cancer Acute myocardial infarction Hypertension Cardiac disorder Myocardial infarction Denies family history of Ovarian cancer Prostate cancer Crohn's disease Breast cancer Colorectal cancer Social History Smoking Status: Never smoker Second Hand Exposure: No; Hx Alcohol Use: Yes Alcohol type: hard liquor Alcohol type Comment: occassional mixed drink Hx Substance Use: No Preferred Language: Vietnamese Communication Ability: Effective Visual Impairment: No Limitations Hearing Ability: Normal Banquet Lead Required: No Beliefs That Will Affect Care: None marital status: Current Living Situation: Spouse current occupational status: retired How many Children do You have: 1 Other Information That Helps Us Care for You: No Feels Safe at Home: Yes Safety Concerns: Feels Safe At This Time Childhood Exposure to Second-Hand Smoke: No Diet Comment: pt watches diet intake s/p gastric bypass surgery caffeine: Yes during the past year weight has: remained stable Dental Care, Regularly: Yes Physical Activity Frequency: 3-4 Times per Week Seatbelt Use: always Sunscreen Use: Yes Assistive Devices: Glasses and Walker Review of Systems Review of Systems: All systems reviewed & are unremarkable except as noted in Subjective Physical Exam Physical Exam: GENERAL: Patient in no acute distress. HEENT: Head is atraumatic, normocephalic. EOM's intact. Facies symmetric. No perioral cyanosis. NECK: No JVD. JVP is not elevated. Carotid upstrokes are + 2 bilaterally. No bruits are noted. CHEST/LUNGS: Clear to auscultation throughout all lung mathis. No wheezes, rales, or crackles. CVS: S1 and S2 are irregular at 80 bpm with crisp mechanical aortic and mitral valve closure sounds. Grade 1/6 basal systolic murmur at the right 2nd intercostal space. No diastolic murmurs appreciated. PMI is nonpalpable. No lifts, heaves, or thrills. No abdominal aortic or renal bruits. ABDOMINAL EXAM: Bowel sounds are present. No masses, organomegaly, or tenderness. EXTREMITIES: No clubbing or cyanosis. +1 to +2 pretibial edema - predominantly non-pitting. Intact radial pulses bilaterally. NEUROLOGIC EXAM: Patient is awake, alert, and oriented. Pleasant and cooperative. Answers questions appropriately. Speech is clear. Normal movement in all 4 extremities. Gait pattern was not assessed. TELEMETRY: -- Rate controlled A-Fib at baseline -- HR's in the 70's and 80's. -- Exaggerated rate response with exertion, HR goes up to 115 to 145 bpm. ECHOCARDIOGRAM 02/12/21: -- Normal LV systolic function. -- Moderate concentric LVH. -- Severe biatrial dilation. -- Mechanical aortic valve with mild aortic stenosis. -- Mechanical mitral valve with mild mitral stenosis. -- RVSP elevated at > 60 mmHg. -- IVC is moderately dilated. Results & Data ([facility]) Vital Signs (Past 12 Hours) Vital Signs Temp Pulse Pulse Resp BP Pulse Ox 02/19/21 07:38 36.5 C 79 19 132/79 99 02/19/21 04:00 36.9 C 75 19 125/74 96 02/18/21 23:28 36.5 C 70 18 126/68 98 02/18/21 22:30 81 Laboratory Results Laboratory Results - last 24 hr 02/15/21 02/18/21 02/18/21 09:52 11:00 16:37 WBC RBC Hgb Hct MCV MCH MCHC RDW Std Deviation RDW Coeff of Donald Plt Count MPV Absolute Nucleated RBC Nucleated RBC % (auto) PT INR APTT PTT Ratio Sodium Potassium Chloride Carbon Dioxide Anion Gap BUN Creatinine Est Cr Clr Drug Dosing Est GFR ( Amer) Est GFR (Non-Af Amer) BUN/Creatinine Ratio Glucose POC Glucose 131 H 126 H Calcium Procalcitonin Antibody ID Referred 02/18/21 02/19/21 02/19/21 20:27 05:24 05:24 WBC 12.74 H RBC 2.93 L Hgb 8.6 L Hct 26.3 L MCV 89.8 MCH 29.4 MCHC 32.7 RDW Std Deviation 55.4 H RDW Coeff of Donald 19.9 H Plt Count 533 H MPV 9.1 Absolute Nucleated RBC 0.12 H Nucleated RBC % (auto) 0.9 PT 20.6 H INR 2.2 H APTT 57.3 H* PTT Ratio 2.2 Sodium Potassium Chloride Carbon Dioxide Anion Gap BUN Creatinine Est Cr Clr Drug Dosing Est GFR ( Amer) Est GFR (Non-Af Amer) BUN/Creatinine Ratio Glucose POC Glucose 111 H Calcium Procalcitonin Antibody ID Referred 02/19/21 02/19/21 02/19/21 05:24 05:24 07:00 WBC RBC Hgb Hct MCV MCH MCHC RDW Std Deviation RDW Coeff of Donald Plt Count MPV Absolute Nucleated RBC Nucleated RBC % (auto) PT INR APTT PTT Ratio Sodium 137 Potassium 3.0 L D Chloride 103 Carbon Dioxide 29 Anion Gap 5.0 BUN 14 Creatinine 0.82 Est Cr Clr Drug Dosing 73.1 Est GFR ( Amer) 81.7 Est GFR (Non-Af Amer) 70.5 BUN/Creatinine Ratio 17.7 Glucose 102 H POC Glucose 115 H Calcium 8.9 Procalcitonin 0.07 Antibody ID Referred Diagnostic Findings EGD 02/10/21: Evidence of a Chris-en-Y gastrojejunostomy was found. The gastrojejunal anastomosis was characterized by edema and visible sutures. This was traversed. The swttb-he-qjxapza limb was characterized by erythema, a hemorrhagic appearance and visible sutures. Small area of bleeding at site of suture material. Endoscissors were used to remove the suture and heater probe therapy was applied to 3 separate locations with mild oozing of bright red blood. Fulguration to ablate the lesions by heater probe was successful. Medications Administered Medications folic acid 1 mg tablet 1 mg PO QAM 05/06/20 [History Confirmed 02/08/21] multivitamin 1 tab PO QAM 05/06/20 [History Confirmed 02/08/21] BD Eclipse 25 gauge x 1" needle #3 ea NS 07/02/20 [Rx Confirmed 01/24/21] metoprolol succinate 50 mg tablet,extended release 24 hr 50 mg PO BID tab 07/15/20 [History Confirmed 02/08/21] warfarin 2.5 mg tablet 2.5 mg PO 6XWK 09/19/20 [History Confirmed 02/08/21] bumetanide 1 mg PO DIRECTED PRN 01/02/21 [History Confirmed 02/08/21] cyanocobalamin (vitamin B-12) 1,000 mcg IM Q4WK 01/02/21 [History Confirmed 02/08/21] metolazone 5 mg PO DIRECTED PRN 01/02/21 [History Confirmed 02/08/21] warfarin 5 mg PO WK 01/02/21 [History Confirmed 02/08/21] oxycodone-acetaminophen 5 mg-325 mg tablet 1 tab PO Q6H PRN #14 tab 01/27/21 [Rx Confirmed 02/08/21] lidocaine 1 patch TRANSDERMAL QAM #20 ea 02/07/21 [Rx Confirmed 02/08/21] atorvastatin 10 mg PO QAM 02/08/21 [History Confirmed 02/08/21] potassium chloride 60 meq PO QAM 02/08/21 [History Confirmed 02/08/21] prednisone 10 mg PO .TAPER 02/08/21 [History Confirmed 02/08/21] tramadol 50 mg PO UD PRN 02/08/21 [History Confirmed 02/08/21] Home Medications Acetaminophen (Acetaminophen 325 Mg Tab) 650 mg PO Q4H PRN PRN Reason: Mild Pain Stop: 03/15/21 08:37 Last Admin: 02/19/21 03:10 Dose: 650 mg Documented by: Dextrose (Dextrose 50% 50 Ml Syringe) 25 - 50 ml IV UD PRN; Protocol PRN Reason: Hypoglycemia Protocol Stop: 03/10/21 20:44 Glucagon (Glucagon For Inj 1 Mg Vial) 1 mg IM UD PRN; Protocol PRN Reason: Hypoglycemia Protocol Stop: 03/10/21 20:44 Glucose (Glucose 40% Gel 15 Gm Tube) 15 - 30 gm PO UD PRN; Protocol PRN Reason: Hypoglycemia Protocol Stop: 03/10/21 20:44 Glucose (Glucose 10 Tabs/Tube) 4 - 8 tabs PO UD PRN; Protocol PRN Reason: Hypoglycemia Protocol Stop: 03/10/21 20:44 Hydroxyzine HCl (Hydroxyzine Hcl 25 Mg Tab) 50 mg PO BID PRN PRN Reason: Anxiety Stop: 03/11/21 21:26 Last Admin: 02/09/21 22:09 Dose: 50 mg Documented by: Heparin Sodium/Dextrose (Heparin Sodium/Dextrose) 25,000 units in 500 mls @ 14 mls/hr IV .Q24H MARCI; Protocol Stop: 03/12/21 16:44 Last Titration: 02/19/21 07:10 Dose: 700 units/hr, 14 mls/hr Documented by: Bumetanide 4 mg/ Syringe 16 mls @ 4 mls/min IV QAM MARCI Stop: 03/16/21 08:59 Last Admin: 02/19/21 07:50 Dose: 4 mls/min Documented by: Potassium Chloride (K Viktor / Wtr) 10 meq in 100 mls @ 100 mls/hr IV Q1H [facility] Stop: 02/19/21 12:59 Insulin Aspart (Insulin Aspart 100 Units/Ml 3 Ml Pen) 0 units SC ACHS MARCI Stop: 03/10/21 20:44 Last Admin: 02/19/21 08:10 Dose: Not Given Documented by: Lidocaine (Lidocaine 5% 1 Patch) 1 patch TD QAM MARCI Stop: 03/11/21 08:59 Last Admin: 02/19/21 07:51 Dose: Not Given Documented by: Metoprolol Succinate (Metoprolol Succ 50mg Ext Rel Tab) 50 mg PO BID [facility] Stop: 03/10/21 20:59 Last Admin: 02/19/21 07:51 Dose: 50 mg Documented by: Miscellaneous (Remove Lidoderm Patch) 1 ea N/A DAILY@2100 [facility] Stop: 03/10/21 20:59 Last Admin: 02/18/21 20:36 Dose: 1 ea Documented by: Miscellaneous (Carbohydrates For Hypoglycemia ) 15 - 30 gm PO UD PRN PRN Reason: Hypoglycemia Treatment Stop: 03/10/21 20:44 Oxycodone/Acetaminophen (Oxycodone/Acetaminophen 5mg/325mg Tab) 1 tab PO Q6H PRN PRN Reason: Severe Pain Stop: 02/27/21 08:37 Pantoprazole Sodium (Pantoprazole 40 Mg Tab) 40 mg PO BID [facility] Stop: 03/13/21 20:59 Last Admin: 02/19/21 07:52 Dose: 40 mg Documented by: Potassium Chloride (Potassium Chloride Crtab 20 Meq Tabcr) 20 meq PO TID [facility] Stop: 02/20/21 09:01 Last Admin: 02/19/21 07:51 Dose: 20 meq Documented by: Sucralfate (Sucralfate 1 Gm/10 Ml Udc) 1 gm PO ACHS [facility] Stop: 03/12/21 11:29 Last Admin: 02/19/21 07:50 Dose: 1 gm Documented by: Tramadol HCl (Tramadol Hcl 50 Mg Tablet) 50 mg PO Q4H PRN PRN Reason: Moderate Pain Stop: 03/15/21 08:37 Last Admin: 02/16/21 00:48 Dose: 50 mg Documented by: Warfarin Sodium (Warfarin Sod 3 Mg Tab) 3 mg PO DAILY@1600 [facility] Stop: 03/19/21 15:59 Last Admin: 02/18/21 15:45 Dose: 3 mg Documented by: PG Care Time/CCT Total # of Minutes Spent Total Time Spent with Patient: Total time spent is greater than 50% in coordination of care (as documented) at patient's floor/unit and/or counseling patient:45 Coding Level of Care Code 81410 Initial Inpt Care Lvl 3 Diagnoses Acute blood loss anemia D62 GIB (gastrointestinal bleeding) K92.2 GI bleed type/associated pathology: unspecified gastrointestinal hem orrhage type Permanent atrial fibrillation I48.21 Chronic diastolic (congestive) heart failure I50.32 S/P aortic valve replacement Z95.2 S/P mitral valve replacement Z95.2 (1) GIB (gastrointestinal bleeding) GI bleed type/associated pathology: unspecified gastrointestinal hemorrhage type Qualified Code(s): K92.2 - Gastrointestinal hemorrhage, unspecified
[2021-02-19] MEDS: POTASSIUM CHLORIDE / WTR 10 MEQ/100 ML PLCT IV SCH ×4 (09:47→14:08)
[2021-02-19] MEDS: HEPARIN SODIUM/DEXTROSE 25,000 UNITS/500 ML BAG IV SCH (12:44)
[2021-02-19] MEDS ORDERED: ENOXAPARIN 150 MG/ML SYR SQ SCH (15:00)
[2021-02-19] MEDS: WARFARIN SOD 3 MG TAB PO SCH (16:24)
--- NOTE | 2021-02-26 21:40 | Hospitalist Progress Note ---
Date of Service February 26, 2021 Assessment & Plan (1) Chronic diastolic (congestive) heart failure: EF on echo on 02/12/2021 was 60% with mild concentric LVH. RVSP > 60 mmHg. Home weight she notes as ~215 lbs. Of note, this is iatrogenic from blood and holding her home diuretic, so I do NOT think this is an acute diastolic CHF exacerbation. - Continue Bumex 4 mg IV daily. -Patient is tolerating diuretic dose. -Creatinine is not increasing. - Continue daily weights and I&Os. Is net negative 4L and reports eating less salt from the cafeteria. Will check standing weight. -Patient appears to be improving. will continue to monitor and keep on Bumex. (2) GIB (gastrointestinal bleeding): EGD on 02/10 showed areas of erythema and bleeding at anastomosis site of her Chris-en-Y gastrojejunostomy at 3 separate locations. - S/p 3 units of PRBC on 02/08. - Continue PPI PO BID & sucralfate per GI - Hemoglobin down to 6.5 on 02/15 -> No sign of active bleeding. Started Ferrlicit on 02/[address] Sutton's recommendation x 5 doses. - Ordered 2 units of PRBCs on 02/15. Due to antibodies, takes about 24 hours to arrive. Sent [employer] a message re: possible EGD. I think this is continued slow bleed rather than acute/fast bleed as her BP and HR remain stable and she has minimal symptoms. (3) Acute blood loss anemia: Symptomatic with lightheadedness and syncope. - S/p PRBCs as above -Hemoglobin appears stable. (4) Supratherapeutic INR: INR was supra-therapeutic on 02/08 at 6.0. Given h/o mechanical aortic and mitral valve: risk of clots is elevated. - INR reversed & INR down to 1.2 on 02/11. - Now on heparin gtt and warfarin to return to anticoagulation -> INR is 1.9 today (02/15). Despite anemia, will not reverse at this time. Will confer with GI and determine what values they would feel comfortable with EGD. -Will increase coumadin to 3 mg daily and monitor INR. -INR has not changed, will continue current dose. (5) Permanent atrial fibrillation: HR presently in the 80s. - Continue metoprolol succinate 50mg BID for rate control with hold parameters - Anticoagulation as above -May neeed to consider increasing dose of metoprolol succinate. will discuss with cardio. (6) Acute pain of right hip: Lumbar radiculopathy from last admission. Improved with prednisone (but this was stopped due to GI bleed). - Consider gabapentin taper per last pain management note on 02/05 if reoccurs - Presently no pain. (7) Diabetic peripheral neuropathy associated with type 2 diabetes mellitus: HbA1C 6.4% in November 2020. - Consulted pharmacy for glycemic control while admitted with basal/bolus insulin -> Blood sugars in the 100 - 140 range in the last 24 hours. (8) S/P aortic valve replacement: [facility] mechanical mitral and aortic valves put in in 2011. She was told at the time that it was due to using the diet drug "Fen-Phen" (fenfluramine-phentermine). - As above (9) History of Chris-en-Y gastric bypass: Noted. Anastomosis site bleeding as above. (10) Syncope: Secondary to orthostatic hypotension from GI bleed as above. (11) Diffuse arthralgia: Initially presumed to be Lyme disease as her IgG was positive; however, it is a scattered set of immunoglobulins, so this is not likely to be a true positive. - Stopped doxycycline on admission (02/08) - Will see rheumatology when able. Presently using graduated pain medication Tylenol, tramadol, and Percocet PRN. (12) L1 vertebral fracture: Noted on CT A/P on 02/08. Suspect it is the cause of her right-sided lumbar radiculopathy and pain on last admission. - Monitor Admission and Anticipated Discharge Date Admission Date: February 08, 2021 PG Care Time/CCT Total # of Minutes Spent Total Time Spent with Patient: Total time spent is greater than 50% in coordination of care (as documented) at patient's floor/unit and/or counseling patient: Coding Diagnoses Chronic diastolic (congestive) heart failure I50.32 GIB (gastrointestinal bleeding) K92.2 GI bleed type/associated pathology: unspecified gastrointestinal hemorrhage type Acute blood loss anemia D62 Supratherapeutic INR R79.1 Permanent atrial fibrillation I48.21 Acute pain of right hip M25.551 Diabetic peripheral neuropathy associated with type 2 diabetes mellitus E11.42 S/P aortic valve replacement Z95.2 History of Chris-en-Y gastric bypass Z98.84 Syncope R55 Diffuse arthralgia M25.50 L1 vertebral fracture S32.019A (1) GIB (gastrointestinal bleeding) GI bleed type/associated pathology: unspecified gastrointestinal hemorrhage type Qualified Code(s): K92.2 - Gastrointestinal hemorrhage, unspecified
--- NOTE | 2021-02-26 21:44 | Discharge Summary ---
Date of Service February 19, 2021 Admission HPI Per Admitting Provider Eden Wagner is a 75-year-old female who presents to the ER with bright red rectal bleeding, hematemesis, syncope and anemia. She was recently admitted to hospital from February 05 and discharged yesterday due to diffuse arthralgias (especially right hip pain) which was treated as Lyme disease with doxycycline and Solu-Medrol which was switched to her tapering dose of prednisone for lumbar radiculopathy. Her INR is supratherapeutic in the emergency room likely due to doxycycline use in the setting of her usual warfarin dosing. She was discharged on half her usual dose of warfarin and took 1.25mg PO yesterday due to elevated INR 4.2 on discharge. She noted possible dark stools yesterday but that is down to blueberries she had eaten during her last hospitalization. First thing this morning stools were dark. While trying to get up she felt dizzy, nauseated and fatigued around 8am. When she stood up to get on the commode she had a full syncopal events and woke up on the floor. She denies hitting her head. After this she had hematemesis and was noted by EMS to have bright red blood clots coming from rectum. She had an additional syncopal events and was brought in via EMS. She has a significant Chris-en-Y gastric bypass and history of GI bleed in March 2020 with melena. She requires blood transfusions from [facility] due to prior antibodies. On that occasion she had gastrojejunal anastomosis ulceration without stigmata of bleeding on EGD. In the ER she was noted to be significantly anemic from previous with hemoglobin 7.8 from 10.5 the previous day. In addition her INR is 6.0 from 4.2. She was treated with NSS 2 oh bolus and vitamin K 5 mg IV. She is referred to medicine for admission and ongoing management of GI bleed. Principal Diagnosis Diastolic CHF Discharge Exam Constitutional: well developed; + not well nourished and no acute distress Eyes: + anicteric sclerae; normal pupil size ENMT: external ear and nose normal, oropharynx normal Neck: trachea midline, no thyromegaly Respiratory: normal respiratory effort, lungs clear to auscultation Cardiovascular: Rate/Rhythm: regular rate and + irregularly irregular Heart Sounds: no murmur Vessels: no JVD Extremities: normal capillary refill and + pedal edema (!+ edema to knee equal b/l); no calf tenderness Gastrointestinal (Abdomen): Inspection/Auscultation: abdomen normal to inspection and normal bowel sounds Percussion/Palpation: abdomen soft; abdomen nontender, no guarding and abdomen not rigid Musculoskeletal: no cyanosis or clubbing, extremities motor strength 5/5 (No joint pain) Skin: no rashes, warm and dry Neurologic: moves all extremities and awake; not confused Psychiatric: A+Ox3, euthymic affect Discharge Data Allergies Allergy/AdvReac Type Severity Reaction Status Date / Time iron [From Venofer] Allergy Severe VENOFER Verified 02/14/21 08:26 INFUSION-RASH,WEAKNESS,BLEEDING-HOSPITALIZED iron dextran complex Allergy Severe RASH Verified 02/10/21 08:34 choline salicylate Allergy Intermediate TRILISATE-r Verified 02/10/21 08:34 nay magnesium salicylate Allergy Intermediate TRILISATE-r Verified 02/10/21 08:34 nay Trilisate Allergy Intermediate TRILISATE-r Verified 11/05/16 17:37 nay mometasone furoate Allergy Unknown Pt has no Verified 02/10/21 08:34 recollection of this Consultations 02/08/21 15:28 ED Decision to Admit Stat 02/08/21 15:58 Consult Gastroenterology Routine 02/19/21 08:15 Consult Cardiology Routine Procedures Performed Operation Date: 02/10/21 16:15 Actual Procedures p EGD Hemostasis - Brayan Oseguera Case, DO Ordered Studies 02/08/21 14:02 CT abd pelvis IV con only Stat CT cervical spine wo con Stat CT head/brain wo con Stat Hospital Course (1) Chronic diastolic (congestive) heart failure: EF on echo on 02/12/2021 was 60% with mild concentric LVH. RVSP > 60 mmHg. Home weight she notes as ~215 lbs. Of note, this is iatrogenic from blood and holding her home diuretic, so I do NOT think this is an acute diastolic CHF exacerbation. - Continue Bumex 4 mg IV daily. -Patient is tolerating diuretic dose. -Creatinine is not increasing. Is net negative 6L and reports eating less salt from the cafeteria. -Patient appears to be improving. will keep on Bumex. (2) GIB (gastrointestinal bleeding): EGD on 02/10 showed areas of erythema and bleeding at anastomosis site of her Chris-en-Y gastrojejunostomy at 3 separate locations. - S/p 3 units of PRBC on 02/08. - Continue PPI PO BID & sucralfate per GI - Hemoglobin down to 6.5 on 02/15 -> No sign of active bleeding. Started Ferrlicit on 02/[address] Sutton's recommendation x 5 doses. - Ordered 2 units of PRBCs on 02/15. Due to antibodies, takes about 24 hours to arrive. Sent [employer] a message re: possible EGD. I think this is continued slow bleed rather than acute/fast bleed as her BP and HR remain stable and she has minimal symptoms. (3) Acute blood loss anemia: Symptomatic with lightheadedness and syncope. - S/p PRBCs as above -Hemoglobin appears stable. (4) Supratherapeutic INR: INR was supra-therapeutic on 02/08 at 6.0. Given h/o mechanical aortic and mitral valve: risk of clots is elevated. - INR reversed & INR down to 1.2 on 02/11. - Now on heparin gtt and warfarin to return to anticoagulation -> INR is 1.9 today (02/15). Despite anemia, will not reverse at this time. Will confer with GI and determine what values they would feel comfortable with EGD. -Will increase coumadin to 3 mg daily and monitor INR. -INR has not changed, will continue current dose. (5) Permanent atrial fibrillation: HR presently in the 80s. - Continue metoprolol succinate 50mg BID for rate control with hold parameters - Anticoagulation as above -May neeed to consider increasing dose of metoprolol succinate. will discuss with cardio. (6) Acute pain of right hip: Lumbar radiculopathy from last admission. Improved with prednisone (but this was stopped due to GI bleed). - Consider gabapentin taper per last pain management note on 02/05 if reoccurs - Presently no pain. (7) Diabetic peripheral neuropathy associated with type 2 diabetes mellitus: HbA1C 6.4% in November 2020. - Consulted pharmacy for glycemic control while admitted with basal/bolus insulin -> Blood sugars in the 100 - 140 range in the last 24 hours. (8) S/P aortic valve replacement: [facility] mechanical mitral and aortic valves put in in 2011. She was told at the time that it was due to using the diet drug "Fen-Phen" (fenfluramine-phentermine). - As above (9) History of Chris-en-Y gastric bypass: Noted. Anastomosis site bleeding as above. (10) Syncope: Secondary to orthostatic hypotension from GI bleed as above. (11) Diffuse arthralgia: Initially presumed to be Lyme disease as her IgG was positive; however, it is a scattered set of immunoglobulins, so this is not likely to be a true positive. - Stopped doxycycline on admission (02/08) - Will see rheumatology when able. Presently using graduated pain medication Tylenol, tramadol, and Percocet PRN. (12) L1 vertebral fracture: Noted on CT A/P on 02/08. Suspect it is the cause of her right-sided lumbar radiculopathy and pain on last admission. - Monitor Total Time Total Time Spent Total Time Spent (In Minutes): 32 Total Time Includes: Examination of the Patient, Discharge Planning and Medication Reconciliation Discharge Plan Discharge Items Patient Disposition: Home - Self-Care Reason For Visit: ACUTE GI BLEED Discharge Diagnosis: ACUTE GI bleed Activity: Resume your previous activity Lifting: None Non-emergency contact: Primary Care Provider Call non-emergency contact if: you have any medication questions Follow-up/Referrals: Fernie Rodriguez MD [Primary Care Provider] - Diet: Heart Healthy Addtl Attending Provider Instructions: You had a GI bleed. We did a upper GI scope and found the problem and treated it. Your warfarin was held. Now gradually increasing it. You will be discharged on warfarin 3 mg PO daily. will recheck INR daily. you will be on Lovenox until INR is at 2.5 for 2 days straight. Take lovenox at 3 pm. Pending Studies at Discharge: No Stand-Alone Forms: My [employer], Smoking Cessation Medications and DC Order Prescriptions: New metoprolol succinate 50 mg Tablet Extended Release 24 Hr 75 mg PO BID 30 Days Qty: 90 RF: 0 Hold Instructions: pt refuses acetaminophen 325 mg Tablet 650 mg PO Q4H PRNQty: 30 RF: 0 pantoprazole 40 mg Tablet,Delayed Release (Dr/Ec) 40 mg PO BID Qty: 60 RF: 0 hydroxyzine HCl 25 mg Tablet 50 mg PO BID PRNQty: 0 RF: 0 Hold Instructions: pt refuses Continued (DME) BD Eclipse 25 gauge x 1" needle See Rx Instructions .ROUTE .MEDSUPPLY Qty: 3 RF: 3 oxycodone-acetaminophen [Percocet] 5-325 mg tablet 1 tab PO Q6H PRN (Reason: pain) Qty: 14 RF: 0 folic acid 1 mg tablet 1 mg PO QAM RF: 0 multivitamin Tablet 1 tab PO QAM RF: 0 metolazone 5 mg tablet 5 mg PO DIRECTED PRN (Reason: Weight Gain) RF: 0 cyanocobalamin (vitamin B-12) 1,000 mcg/mL solution 1,000 mcg IM Q4WK RF: 0 bumetanide 1 mg tablet 1 mg PO DIRECTED PRN (Reason: Weight Gain) RF: 0 lidocaine 5 % Adhesive Patch,Medicated 1 patch transdermal QAM Qty: 20 RF: 0 tramadol 50 mg tablet 50 mg PO UD PRN (Reason: Pain) RF: 0 atorvastatin 10 mg tablet 10 mg PO QAM RF: 0 potassium chloride 20 mEq/15 mL liquid 60 meq PO QAM RF: 0 Discontinued warfarin 2.5 mg tablet 2.5 mg PO 6XWK RF: 0 metoprolol succinate 50 mg tablet extended release 24 hr 50 mg PO BID RF: 0 warfarin 5 mg tablet 5 mg PO WK RF: 0 prednisone 10 mg tablet 10 mg PO .TAPER RF: 0 No Action metoprolol succinate 50 mg tablet extended release 24 hr 50 mg PO BID RF: 0 warfarin 5 mg tablet 5 mg PO .COMPLEX Qty: 30 RF: 0 Discharge Orders: Discharge Order (Routine); Ordered 02/19/21 Ordered By: Zacarias Deleon/Other Patient Handouts: Bleeding Gastrointestinal, Pantoprazole tablets, Sucralfate tablets, Enoxaparin injection, Hydroxyzine capsules or tablets, Metoprolol tablets Admission Data Admit Date/Time: 02/08/21 16:00 Attending Provider: Zacarias James Admit Provider: Tunde Hester Primary Care Provider: Fernie Rodriguez Other Providers: Brayan Brizeula ; Garrick Briggs ; Fernie Lentz Other Interventions: Discharge Summary Assessment (RN) Last Done: 02/19/21 17:51 Coding Level of Care Code D/C Day Management >30 mins Diagnoses Chronic diastolic (congestive) heart failure I50.32 GIB (gastrointestinal bleeding) K92.2 GI bleed type/associated pathology: unspecified gastrointestinal hemorrhage type Acute blood loss anemia D62 Supratherapeutic INR R79.1 Permanent atrial fibrillation I48.21 Acute pain of right hip M25.551 Diabetic peripheral neuropathy associated with type 2 diabetes mellitus E11.42 S/P aortic valve replacement Z95.2 History of Chris-en-Y gastric bypass Z98.84 Syncope R55 Diffuse arthralgia M25.50 L1 vertebral fracture S32.019A
== END 2021-02-19 18:40 | disposition home or self-care (01) | DRG 378 ==
LOC: ED 13:40 → SUATTDRO 16:00 → 2E 16:00 → 2S 02-11 07:31

== ENCOUNTER 2022-01-14 13:41 | Inpatient (IN) ==
[2022-01-14 14:29] LABS: Basophils # (auto) 0.09 K/uL (0-0.2); Basophils % (auto) 0.9 %; Eosinophils # (auto) 0.62 K/uL (0-0.5); Eosinophils % (auto) 6.1 %; Hematocrit (blood only) 35.7 % (37-47); Hemoglobin 11.4 g/dL (12.0-16.0); Immature Granulocytes # (auto) 0.09 K/uL (0.00-0.02); Immature Granulocytes % (auto) 0.9 %; Lymphocytes # (auto) 2.47 K/uL (1.2-3.4); Lymphocytes % (auto) 24.3 %; Mean Corpuscular Hemoglobin 29.9 pg (25-34); Mean Corpuscular Hgb Conc 31.9 g/dL (32-36); Mean Corpuscular Volume 93.7 fL (80-100); Mean Platelet Volume 9.3 fL (7.4-10.4); Monocytes # (auto) 1.13 K/uL (0.11-0.59); Monocytes % (auto) 11.1 %; Neutrophils # (auto) 5.78 K/uL (1.4-6.5); Neutrophils % (auto) 56.7 %; Platelet Count 542 K/uL (130-400); RDW Coefficient of Variation 15.4 % (11.5-14.5); RDW Standard Deviation 53.6 fL (36.4-46.3); Red Blood Count 3.81 M/uL (4.2-5.4); White Blood Count 10.18 K/uL (4.8-10.8)
[2022-01-14 14:43] LABS: INR 2.4 (0.9-1.1); Partial Thromboplastin Ratio 1.6; Partial Thromboplastin Time 40.9 Seconds (21.0-31.0)
[2022-01-14 14:54] LABS: Alanine Aminotransferase 16 U/L (7-52); Alkaline Phosphatase 157 U/L (34-104); Anion Gap 9 (3-11); Aspartate Aminotransferase 27 U/L (13-39); BUN Creatinine Ratio 26.3 (10-20); Bilirubin,Total 0.7 mg/dl (0.2-1.0); Blood Urea Nitrogen 21 mg/dl (6-23); Carbon Dioxide 26 mmol/L (21-32); Chloride 104 mmol/L (98-107); Creatinine Clr Calc Pharmacy 78.9 ml/min; Est GFR (African American) 83.6 ml/min; Est GFR (Non-African American) 72.1 ml/min; Globulin 4.2 gm/dl (2.5-4.0); Glucose 110 mg/dl (70-99(Fasting)); Magnesium 1.6 mg/dl (1.7-2.4); Sodium 139 mmol/L (136-145); Total Protein 8.2 gm/dl (6.0-8.3); Troponin I < 0.03 ng/ml (0-0.04)
--- NOTE | 2022-01-14 15:42 | XRay Report ---
XR chest 2V PA/lateral HISTORY: 76 years-old Female sob acute shortness of breath COMPARISON: Chest radiographs 11/29/2021 TECHNIQUE: PA and lateral views of the chest FINDINGS: Cardiac silhouette is enlarged. Prior median sternotomy with cardiac valvular prosthesis. Atheroscler osis of the thoracic aorta. No pneumothorax, large pleural effusion or overt pulmonary edema. Chronic interstitial coarsening. Degenerative changes of the shoulders and spine. Surgical clips project ove r the upper abdomen. Chronic thoracolumbar compression deformities. Rightward deviation of the trache a is redemonstrated secondary to the patient's known thyroid goiter. IMPRESSION: 1. No acute process. 2. Cardiomegaly with chronic interstitial coarsening. ACT 112: Negative or not required by law. The above report was generated using voice recognition software. It may contain grammatical, syntax o r spelling errors. Electronically signed by: Mitul Garcia M.D. 01/14/2022 3:41 PM
[2022-01-14] MEDS ORDERED: MAGNESIUM SULFATE / D5W 1 GM/100 ML BAG IV STA (15:50)
[2022-01-14] MEDS ORDERED: PIPERACILL/TAZOBAC CONSULT ACTIVE PRN (16:10)
[2022-01-14] MEDS ORDERED: PIPERACILLIN/TAZOBACTAM 4.5 GM/120 ML BAG IV ONE (16:10)
[2022-01-14] MEDS ORDERED: BUMETANIDE 1 MG in SYRINGE 0 ML IV STA (16:10)
--- NOTE | 2022-01-14 16:17 | Emergency Department Note ---
Impression & Plan SOB (shortness of breath), Fluid overload, Cellulitis, Hypomagnesemia ED Provider Note NAME: ADRIAN COY AGE: 76 SEX: F : 1945 ARRIVES VIA: Walk-In INFORMANT: [Patient] ED PROVIDER(S): [Albert Dixon MD] CHIEF COMPLAINT: Shortness of breath HISTORY OF PRESENT ILLNESS: The patient is a 76-year-old female presents to the ER with about 2 days of some shortness of breath. She gained about 20 pounds of which she thinks is fluid. Today, she took diuretics and feels that she has diuresed some of the fluid off. Patient denies any chest pain. She did see her doctor's office today and her heart rate was quick. She had some inflammation and redness to the left foot. She was sent to the ER for evaluation. The patient's left foot issue has been ongoing for several weeks. She did see what sounds like a tile finisher. She is not on any antibiotics. There has been no fever but the patient has had some chills. No abdominal pain, no vomiting or diarrhea. She has had cellulitis before. The patient is on warfarin, she has a history of A. fib. Of note, the patient is scheduled to have a CT of her chest for PE. She apparently recently traveled to [place]. REVIEW OF SYSTEMS: See HPI for pertinent positives and negatives. A total of ten systems were reviewed and were otherwise negative. PMHx/PSHx: See Below SOCIAL HISTORY: See Below. PHYSICAL EXAM: GENERAL: Patient is in no acute distress. HEENT: No acute trauma, normocephalic atraumatic, mucous membranes moist, no nasal congestion, no scleral icterus. NECK: No stridor, no adenopathy, no meningismus, trachea is midline. LUNGS: Clear to auscultation bilaterally, no wheeze, no rhonchi, breath sounds equal. HEART: There is a 2/6 systolic murmur, she has an irregular rhythm and is mildly tachycardic. ABDOMEN: Soft, nontender, bowel sounds positive, no hernias, no peritonitis. EXTREMITIES: No cyanosis. There is moderate bilateral pedal edema. The patient does have an open abrasion to the lateral aspect of the left fifth toe. There is surrounding redness that has spread up the dorsum of the foot. There is some increased redness to the distal left leg. There is warmth present. NEUROLOGIC: Oriented x 3, no acute motor or sensory deficits, no focal weakness. SKIN: No jaundice, no diaphoresis. DIFFERENTIAL DIAGNOSIS: Reactive airway disease, pneumonia, COVID-19, influenza, osteomyelitis, cellulitis, atrial fibrillation, pneumothorax, COPD, CHF, infection, cardiac ischemia, pulmonary embolism, bronchitis, musculoskeletal, gastrointestinal, as well as other pathologies. EMERGENCY DEPARTMENT COURSE/PROCEDURES: ECG: Indication was shortness of breath. The ECG shows atrial fibrillation with a rate of 105. There is some baseline artifact. There is a potential old anterior/septal infarct. There is a potential old inferior infarct. There is no ST elevation, no PVCs. The QTc is 478. Continuous Cardiac Monitoring: An order was placed for continuous cardiac monitoring. The monitor shows a rate of 99 with atrial fibrillation. MEDICAL DECISION MAKING: There is no leukocytosis or worrisome anemia. Platelet count is a bit elevated at over 500. INR is 2.4, consistent with her Coumadin use. Magnesium was somewhat low at 1.6. No kidney failure. AST was a bit elevated, the remaining liver enzymes were unremarkable. ECG shows atrial fibrillation with a rapid rate. No obvious acute cardiac ischemia by ECG. Cardiac enzyme testing x1 is not consistent with acute cardiac injury. Covid test returned negative. Chest x-ray shows some chronic change, I see no pneumonia or worrisome CHF. Chest CT does not show PE, some potential nodules versus atypical infection were noted. Left foot CT shows cellulitis, no osteomyelitis. On exam, the patient did have a left lower extremity cellulitis. Patient received IV magnesium, IV Bumex, IV Zosyn. She has diuresed from the Bumex. The patient presents with shortness of breath, fluid overload and a left leg/f oot cellulitis. Given her findings, given her history, I do think a hospital stay is warranted. I spoke with the patient and case management. The on-call hospitalist was consulted. Past Med/Surg History Medical History Abnormal CT scan, chest Acute blood loss anemia Anastomotic ulcer S/P gastric bypass ASCVD (arteriosclerotic cardiovascular disease) Carotid stenosis, asymptomatic left Carpal tunnel syndrome Cervical radiculopathy Chronic diastolic (congestive) heart failure Diabetic peripheral neuropathy associated with type 2 diabetes mellitus Elevated alkaline phosphatase level Esophageal candidiasis Eustachian tube dysfunction Hearing loss HTN (hypertension) Hyperlipidemia Hypertension FPC (current) use 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 Mitral regurgitation Nontoxic multinodular goiter Obesity Obstructive sleep apnea Osteoporosis Pericardial effusion Permanent atrial fibrillation Personal history of diabetic foot ulcer Spinal stenosis, lumbar region with neurogenic claudication 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 Venous insufficiency (chronic) (peripheral) Vitamin B12 deficiency Vitamin D deficiency Surgical History H/O gastric bypass H/O hernia repair H/O splenectomy H/O splenectomy History of esophagogastroduodenoscopy (EGD) History of knee replacement History of total abdominal hysterectomy Hx of appendectomy Hx of cholecystectomy Hx of tonsillectomy S/P aortic valve replacement (2011) S/P gastric bypass S/P mitral valve replacement (2011) S/P pericardial window creation (2011) Status post panniculectomy Family History Mother Congestive heart failure Diabetes Hypertension Cardiac disorder Brother Diabetes Polycythemia Pharyngeal neoplasm Pulmonary embolism Father Lung cancer Acute myocardial infarction Hypertension Cardiac disorder Myocardial infarction Denies family history of Ovarian cancer Prostate cancer Crohn's disease Breast cancer Colorectal cancer Social History Smoking Status: Never smoker Second Hand Exposure: No; Hx Alcohol Use: Yes Alcohol type: hard liquor Alcohol type Comment: occassional mixed drink Hx Substance Use: No Preferred Language: Bengali Communication Ability: Effective Visual Impairment: No Limitations Hearing Ability: Normal Property And Equipment Clerk Required: No Beliefs That Will Affect Care: None marital status: Current Living Situation: Spouse current occupational status: retired How many Children do You have: 1 Feels Safe at Home: Yes Childhood Exposure to Second-Hand Smoke: No Diet Comment: pt watches diet intake s/p gastric bypass surgery caffeine: Yes during the past year weight has: remained stable Dental Care, Regularly: Yes Physical Activity Frequency: 3-4 Times per Week Seatbelt Use: always Sunscreen Use: Yes Assistive Devices: Glasses and Walker Allergies Allergies Allergy/AdvReac Type Severity Reaction Status Date / Time iron [From Venofer] Allergy Severe VENOFER Verified 01/14/22 18:26 INFUSION-RASH,WEAKNESS,BLEEDING-HOSPITALIZED iron dextran complex Allergy Severe RASH Verified 01/14/22 18:26 choline salicylate Allergy Intermediate TRILISATE-r Verified 01/14/22 18:26 nay magnesium salicylate Allergy Intermediate TRILISATE-r Verified 01/14/22 18:26 nay mometasone furoate Allergy Unknown Pt has no Verified 01/14/22 18:26 recollection of this Home Meds Home Medications Medication Instructions Recorded Confirmed multivitamin 1 tab PO QAM 05/06/20 01/14/22 acetaminophen 500 mg capsule 1,000 mg PO DAILY PRN cap 03/04/21 01/14/22 polyethylene glycol 3350 17 17 g PO DAILY 03/04/21 01/14/22 gram/dose oral powder (Miralax) pantoprazole 40 mg tablet,delayed 40 mg PO BID PRN tab 04/22/21 01/14/22 release Previous Rx's Medication Instructions Recorded metoprolol succinate 50 mg 50 mg PO BID #180 tab 04/08/21 tablet,extended release 24 hr warfarin 5 mg tablet 5 mg PO .COMPLEX #120 tab 04/15/21 triamcinolone acetonide 0.025 % 1 applic TOPICAL .COMPLEX #80 g 08/08/21 topical cream metolazone 5 mg tablet 5 mg PO DIRECTED #30 tab 08/11/21 potassium chloride 20 mEq/15 mL 60 meq PO QAM #3800 ml 08/11/21 oral liquid BD Eclipse 25 gauge x 1" needle #3 ea NS 08/14/21 (safety needles) cyanocobalamin (vitamin B-12) 1,000 mcg IM Q4WK #3 ml 08/15/21 1,000 mcg/mL injection solution bumetanide 1 mg tablet 1 mg PO DIRECTED PRN #360 tab 09/04/21 atorvastatin 10 mg tablet 10 mg PO QAM #90 tab 11/07/21 oxycodone-acetaminophen 5 mg-325 1 tab PO Q6H PRN #14 tab 12/05/21 mg tablet (Percocet) tramadol 50 mg tablet 50 mg PO TID PRN #90 tab 01/02/22 Results & Data (ED) Vital Signs Vital Signs - 24 hr 01/14/22 13:47 01/14/22 16:17 01/14/22 16:20 Temperature 36.4 C L Temperature Source Oral Pulse Rate 99 H 107 H Pulse Rate [Right Finger] 87 Pulse Rate from SpO2 Sensor 94 H Pulse Rhythm [Right Finger] Irregular Respiratory Rate 18 20 23 Respiratory Effort / Characteristics Non-Labored Spontaneous Blood Pressure 200/86 H Blood Pressure [Left Arm] 163/92 H Blood Pressure Mean 124 Blood Pressure Mean [Left Arm] 115 Blood Pressure Position [Left Arm] Sitting Pulse Oximetry 98 96 98 Oxygen Delivery Method Room Air Room Air Sepsis Recent Fever Within 48 Hours No Sepsis New/Unexplained Change in Mental Status No Sepsis Action Taken by Nursing No Action Required 01/14/22 16:21 01/14/22 16:30 01/14/22 16:40 Temperature Temperature Source Pulse Rate 79 78 Pulse Rate [Right Finger] Pulse Rate from SpO2 Sensor 83 81 Pulse Rhythm [Right Finger] Respiratory Rate 20 20 20 Respiratory Effort / Characteristics Blood Pressure 163/92 H 164/90 H Blood Pressure [Left Arm] Blood Pressure Mean 115 114 Blood Pressure Mean [Left Arm] Blood Pressure Position [Left Arm] Pulse Oximetry 97 98 97 Oxygen Delivery Method Room Air Sepsis Recent Fever Within 48 Hours Sepsis New/Unexplained Change in Mental Status Sepsis Action Taken by Nursing 01/14/22 16:50 01/14/22 18:00 01/14/22 18:06 Temperature Temperature Source Pulse Rate 84 88 Pulse Rate [Right Finger] 86 Pulse Rate from SpO2 Sensor Pulse Rhythm [Right Finger] Respiratory Rate 20 22 18 Respiratory Effort / Characteristics Non-Labored Spontaneous Blood Pressure Blood Pressure [Left Arm] 177/94 H Blood Pressure Mean Blood Pressure Mean [Left Arm] 121 Blood Pressure Position [Left Arm] Sitting Pulse Oximetry 97 93 95 Oxygen Delivery Method Room Air Room Air Room Air Sepsis Recent Fever Within 48 Hours Sepsis New/Unexplained Change in Mental Status Sepsis Action Taken by Nursing 01/14/22 18:10 01/14/22 18:20 01/14/22 18:30 Temperature Temperature Source Pulse Rate 86 98 H 86 Pulse Rate [Right Finger] Pulse Rate from SpO2 Sensor 84 86 88 Pulse Rhythm [Right Finger] Respiratory Rate 20 23 20 Respiratory Effort / Characteristics Blood Pressure 177/94 H Blood Pressure [Left Arm] Blood Pressure Mean 121 Blood Pressure Mean [Left Arm] Blood Pressure Position [Left Arm] Pulse Oximetry 95 94 95 Oxygen Delivery Method Room Air Room Air Room Air Sepsis Recent Fever Within 48 Hours Sepsis New/Unexplained Change in Mental Status Sepsis Action Taken by Nursing 01/14/22 18:40 01/14/22 18:50 01/14/22 19:00 Temperature Temperature Source Pulse Rate 83 89 98 H Pulse Rate [Right Finger] Pulse Rate from SpO2 Sensor 82 86 98 H Pulse Rhythm [Right Finger] Respiratory Rate 24 20 22 Respiratory Effort / Characteristics Blood Pressure Blood Pressure [Left Arm] Blood Pressure Mean Blood Pressure Mean [Left Arm] Blood Pressure Position [Left Arm] Pulse Oximetry 95 96 94 Oxygen Delivery Method Room Air Room Air Sepsis Recent Fever Within 48 Hours Sepsis New/Unexplained Change in Mental Status Sepsis Action Taken by Nursing 01/14/22 19:10 01/14/22 19:20 01/14/22 19:30 Temperature Temperature Source Pulse Rate 80 90 94 H Pulse Rate [Right Finger] Pulse Rate from SpO2 Sensor 84 87 99 H Pulse Rhythm [Right Finger] Respiratory Rate 22 22 20 Respiratory Effort / Characteristics Blood Pressure Blood Pressure [Left Arm] Blood Pressure Mean Blood Pressure Mean [Left Arm] Blood Pressure Position [Left Arm] Pulse Oximetry 97 92 94 Oxygen Delivery Method Room Air Room Air Room Air Sepsis Recent Fever Within 48 Hours Sepsis New/Unexplained Change in Mental Status Sepsis Action Taken by Nursing 01/14/22 19:31 01/14/22 19:40 Temperature Temperature Source Pulse Rate 88 108 H Pulse Rate [Right Finger] Pulse Rate from SpO2 Sensor 91 H Pulse Rhythm [Right Finger] Respiratory Rate 20 21 Respiratory Effort / Characteristics Blood Pressure Blood Pressure [Left Arm] Blood Pressure Mean Blood Pressure Mean [Left Arm] Blood Pressure Position [Left Arm] Pulse Oximetry 94 94 Oxygen Delivery Method Room Air Room Air Sepsis Recent Fever Within 48 Hours Sepsis New/Unexplained Change in Mental Status Sepsis Action Taken by Correction Medications Current Medication List: was personally reviewed by me Laboratory Data Attestation: I reviewed the patient's lab results. Result diagrams: 01/14/22 14:19 01/14/22 14:19 Lab Results 01/14/22 01/14/22 01/14/22 Range/Units 14:19 14:19 14:19 WBC 10.18 (4.8-10.8) K/uL RBC 3.81 L (4.2-5.4) M/uL Hgb 11.4 L (12.0-16.0) g/dL Hct 35.7 L (37-47) % MCV 93.7 (80-100) fL MCH 29.9 (25-34) pg MCHC 31.9 L (32-36) g/dL RDW Std Deviation 53.6 H (36.4-46.3) fL RDW Coeff of Donald 15.4 H (11.5-14.5) % Plt Count 542 H (130-400) K/uL MPV 9.3 (7.4-10.4) fL Immature Gran % (Auto) 0.9 % Neut % (Auto) 56.7 % Lymph % (Auto) 24.3 % [place] % (Auto) 11.1 % Eos % (Auto) 6.1 % Baso % (Auto) 0.9 % Neut # (Auto) 5.78 (1.4-6.5) K/uL Lymph # (Auto) 2.47 (1.2-3.4) K/uL [place] # (Auto) 1.13 H (0.11-0.59) K/uL Eos # (Auto) 0.62 H (0-0.5) K/uL Baso # (Auto) 0.09 (0-0.2) K/uL Immature Gran # (Auto) 0.09 H (0.00-0.02) K/uL PT 23.0 H (9.0-12.0) Seconds INR 2.4 H (0.9-1.1) APTT 40.9 H (21.0-31.0) Seconds PTT Ratio 1.6 Sodium 139 (136-145) mmol/L Potassium 4.0 (3.5-5.1) mmol/L Chloride 104 (98-107) mmol/L Carbon Dioxide 26 (21-32) mmol/L Anion Gap 9 (3-11) BUN 21 (6-23) mg/dl Creatinine 0.80 (0.6-1.2) mg/dl Est Cr Clr Drug Dosing 78.9 ml/min Est GFR ( Amer) 83.6 ml/min Est GFR (Non-Af Amer) 72.1 ml/min BUN/Creatinine Ratio 26.3 H (10-20) Glucose 110 H (70-99(Fasting)) mg/dl Lactate (0.4-2.0) mmol/L Calcium 10.0 (8.5-10.1) mg/dl Magnesium 1.6 L (1.7-2.4) mg/dl Total Bilirubin 0.7 (0.2-1.0) mg/dl AST 27 (13-39) U/L ALT 16 (7-52) U/L Alkaline Phosphatase 157 H (34-104) U/L Troponin I < 0.03 (0-0.04) ng/ml Total Protein 8.2 (6.0-8.3) gm/dl Albumin 4.0 (3.4-5.0) gm/dl Globulin 4.2 H (2.5-4.0) gm/dl Albumin/Globulin Ratio 1.0 (0.9-2) SARS-CoV-2, RNA, NAAT (NEGATIVE) 01/14/22 01/14/22 Range/Units 17:45 17:48 WBC (4.8-10.8) K/uL RBC (4.2-5.4) M/uL Hgb (12.0-16.0) g/dL Hct (37-47) % MCV (80-100) fL MCH (25-34) pg MCHC (32-36) g/dL RDW Std Deviation (36.4-46.3) fL RDW Coeff of Donald (11.5-14.5) % Plt Count (130-400) K/uL MPV (7.4-10.4) fL Immature Gran % (Auto) % Neut % (Auto) % Lymph % (Auto) % [place] % (Auto) % Eos % (Auto) % Baso % (Auto) % Neut # (Auto) (1.4-6.5) K/uL Lymph # (Auto) (1.2-3.4) K/uL [place] # (Auto) (0.11-0.59) K/uL Eos # (Auto) (0-0.5) K/uL Baso # (Auto) (0-0.2) K/uL Immature Gran # (Auto) (0.00-0.02) K/uL PT (9.0-12.0) Seconds INR (0.9-1.1) APTT (21.0-31.0) Seconds PTT Ratio Sodium (136-145) mmol/L Potassium (3.5-5.1) mmol/L Chloride (98-107) mmol/L Carbon Dioxide (21-32) mmol/L Anion Gap (3-11) BUN (6-23) mg/dl Creatinine (0.6-1.2) mg/dl Est Cr Clr Drug Dosing ml/min Est GFR ( Amer) ml/min Est GFR (Non-Af Amer) ml/min BUN/Creatinine Ratio (10-20) Glucose (70-99(Fasting)) mg/dl Lactate 1.5 (0.4-2.0) mmol/L Calcium (8.5-10.1) mg/dl Magnesium (1.7-2.4) mg/dl Total Bilirubin (0.2-1.0) mg/dl AST (13-39) U/L ALT (7-52) U/L Alkaline Phosphatase (34-104) U/L Troponin I (0-0.04) ng/ml Total Protein (6.0-8.3) gm/dl Albumin (3.4-5.0) gm/dl Globulin (2.5-4.0) gm/dl Albumin/Globulin Ratio (0.9-2) SARS-CoV-2, RNA, NAAT NEGATIVE (NEGATIVE) Administered Medications Discontinued Medications Magnesium Sulfate/Dextrose (Magnesium Sulfate / D5w) 1 gm in 100 mls @ 100 mls/hr IV NOW STA Stop: 01/14/22 16:49 Last Infusion: 01/14/22 17:30 Dose: 0 mls/hr Documented by: [id number] Admin: 01/14/22 16:26 Dose: 100 mls/hr Documented by: [id number] Bumetanide 1 mg/ Syringe 4 mls @ 4 mls/min IV NOW STA Stop: 01/14/22 16:11 Last Admin: 01/14/22 16:43 Dose: 4 mls/min Documented by: [id number] Piperacillin Sod/Tazobactam Sod (Zosyn) 4.5 gm in 120 mls @ 240 mls/hr IV NOW ONE Stop: 01/14/22 16:39 Last Infusion: 01/14/22 18:41 Dose: 0 mls/hr Documented by: [id number] Admin: 01/14/22 18:06 Dose: 240 mls/hr Documented by: [id number] Ioversol (Optiray 320 125ml) 119 ml IV ONCE ONE Stop: 01/14/22 17:19 Last Admin: 01/14/22 17:18 Dose: 119 ml Documented by: [id number] Imaging Data Radiologist's Impression: Chest X-Ray 01/14/22 13:51 XR chest 2V PA/lateral HISTORY: 76 years-old Female sob acute shortness of breath COMPARISON: Chest radiographs 11/29/2021 TECHNIQUE: PA and lateral views of the chest FINDINGS: Cardiac silhouette is enlarged. Prior median sternotomy with cardiac valvular prosthesis. Atherosclerosis of the thoracic aorta. No pneumothorax, large pleural effusion or overt pulmonary edema. Chronic interstitial coarsening. Degenerative changes of the shoulders and spine. Surgical clips project over the upper abdomen. Chronic thoracolumbar compression deformities. Rightward deviation of the trachea is redemonstrated secondary to the patient's known thyroid goiter. IMPRESSION: 1. No acute process. 2. Cardiomegaly with chronic interstitial coarsening. ACT 112: Negative or not required by law. The above report was generated using voice recognition software. It may contain grammatical, syntax or spelling errors. Electronically signed by: Mitul Garcia M.D. 01/14/2022 3:41 PM Chest CTA 01/14/22 16:08 CT angio chest PE protocol HISTORY: 76 years-old Female with PE. Acute shortness of breath TECHNIQUE: Multiple CTA images of the chest were obtained after the intravenous administration of 119 ml Optiray. Coronal and sagittal MIPS were obtained from the axial data set and were submitted for review. All measurements were obtained according to NASCET criteria. A dose lowering technique was utilized adhering to the principles of ALARA. COMPARISON: Chest radiograph of same day, chest CT 05/05/2019, CT abdomen and pelvis 02/08/2021 FINDINGS: CTA: Moderate enlargement of the cardiac silhouette. Prior median sternotomy with prosthetic mitral and aortic valves. Extensive [place] coronary artery calcifications. Atherosclerosis of the thoracic aorta without aneurysm or dissection. Unremarkable pulmonary artery. No pulmonary emboli. CT CHEST: Multinodular thyroid goiter with superior mediastinal extension is redemonstrated. Mildly enlarged paratracheal and subcarinal lymph nodes measure up to 10-11 mm. No pneumothorax, pleural effusion or overt pulmonary edema. Mild linear subsegmental bibasilar predominant atelectasis/scarring. There are several ill-defined tiny bilateral pulmonary nodules, most of which measure 2 to 3 mm. 6 L nodule of the superior segment left lower lobe on image 163. These findings are new from prior study. Central airways are patent. Postoperative changes of the stomach. Soft tissue nodules of the abdominal left upper quadrant are redemonstrated suggestive of splenosis. Left-sided renal cyst s. 7 mm calcification of the superior pole left kidney. Multilevel degenerative changes of the spine. Chronic L1 compression deformity. Degenerative changes are noted within the shoulders and spine. There are several healing subacute nondisplaced lateral right sided rib fractures present. There is ill-defined 2.8 cm heterogeneous soft tissue prominence noted interposed between the lateral right ninth and 10th ribs on image 1 of series 4. IMPRESSION: 1. Cardiomegaly without pulmonary emboli. 2. Ill-defined patchy bilateral nodular densities of the lungs measuring up to 6 mm are new from the prior study and are likely infectious or inflammatory. 3 month follow-up chest CT recommended. 3. Mild mediastinal adenopathy. 4. Healing subacute appearing right lateral rib fractures. Ill-defined partially imaged soft tissue prominence interposed between the lateral right ninth and 10th ribs should also be evaluated on the follow-up study to exclude an underlying lesion. 5. Chronic findings as above. ACT 112: Negative or not required by law. The above report was generated using voice recognition software. It may contain grammatical, syntax or spelling errors. Electronically signed by: Mitul Garcia M.D. 01/14/2022 6:[address] 01/14/22 16:08 CT foot LT w con HISTORY: 76 years-old Female poss osteomyelitis acute pain and swelling of the left foot COMPARISON: Acute left foot 06/28/2020, left foot radiographs 08/30/2020 TECHNIQUE: Multiple axial CT images of the left foot were obtained following the intravenous administration of 119 mL Optiray 320. A dose lowering technique was used consistent with the principals of KARISHMA. FINDINGS: There is diffuse muscle atrophy with arterial calcifications. Tendons and ligaments are not well evaluated by CT technique. Diffuse skin thickening with mild to moderate subcutaneous edema. No abscess. Multifocal osteoarthritis, moderate to severe within the first MTP joint and severe within the second and third tarsometatarsal joints. There is flexion of the interphalangeal joints. No acute fracture, dislocation or osseous erosion to suggest acute osteomyelitis. IMPRESSION: 1. Diffuse skin thickening with subcutaneous edema of the foot suggestive of cellulitis, lymphedema or venous stasis. No abscess. 2. No acute fracture, dislocation or osseous erosion to suggest osteomyelitis. 3. Multifocal osteoarthritis redemonstrated. ACT 112: Negative or not required by law. The above report was generated using voice recognition software. It may contain grammatical, syntax or spelling errors. Electronically signed by: Mitul Garcia M.D. 01/14/2022 5:50 PM Discharge Plan Visit Data Chief Complaint: Shortness of Breath/Dyspnea Stated Complaint: SOB, TACHYCARDIA, CHEST TIGHTNESS ED Provider: Albert Dixon Discharge Problem: SOB (shortness of breath), Fluid overload, Cellulitis, Hypomagnesemia Patient Disposition: Admitted As Inpatient Condition: Fair Forms Stand Alone Forms: [facility] [place] [employer] Prescriptions Prescriptions: No Action warfarin 5 mg tablet 5 mg PO .COMPLEX Qty: 120 RF: 3 potassium chloride 20 mEq/15 mL liquid 60 meq PO QAM Qty: 3800 RF: 2 metolazone 5 mg tablet 5 mg PO DIRECTED Qty: 30 RF: 5 (DME) BD Eclipse 25 gauge x 1" needle See Rx Instructions .ROUTE .MEDSUPPLY Qty: 3 RF: 3 cyanocobalamin (vitamin B-12) 1,000 mcg/mL solution 1,000 mcg IM Q4WK Qty: 3 RF: 3 bumetanide 1 mg tablet 1 mg PO DIRECTED PRN (Reason: Weight Gain) Qty: 360 RF: 3 oxycodone-acetaminophen [Percocet] 5-325 mg tablet 1 tab PO Q6H PRN (Reason: pain) Qty: 14 RF: 0 tramadol 50 mg tablet 50 mg PO TID PRN (Reason: Pain) Qty: 90 RF: 0 multivitamin Tablet 1 tab PO QAM RF: 0 triamcinolone acetonide 0.025 % cream 1 applic topical .COMPLEX Qty: 80 RF: 0 metoprolol succinate 50 mg tablet extended release 24 hr 50 mg PO BID Qty: 180 RF: 3 acetaminophen 500 mg capsule 1,000 mg PO DAILY PRN (Reason: Pain) RF: 0 polyethylene glycol 3350 [Miralax] 17 gram/dose powder 17 g PO DAILY RF: 0 pantoprazole 40 mg tablet,delayed release (DR/EC) 40 mg PO BID PRN (Reason: Indigestion) RF: 0 atorvastatin 10 mg tablet 10 mg PO QAM Qty: 90 RF: 3 Referrals Referrals: Pro,Fernie Hoyt MD [Primary Care Provider] -
[2022-01-14] MEDS ORDERED: OPTIRAY 320 125ml IV ONE (17:18)
--- NOTE | 2022-01-14 17:41 | Electrocardiogram Report ---
Test Reason : Blood Pressure : / mmHG Vent. Rate : 105 BPM Atrial Rate : 087 BPM P-R Int : 000 ms QRS Dur : 082 ms QT Int : 362 ms P-R-T Axes : 000 -11 029 degrees QTc Int : 478 ms Poor data quality, interpretation may be adversely affected Atrial fibrillation with rapid ventricular response Poor R wave progression, consider anterior VT vs. lead placement vs. LVH Abnormal ECG When compared with ECG of 08-FEB-2021 14:03, No significant change was found Confirmed by Ramesh Whitney ([id number]) on 01/14/2022 5:40:55 PM Referred By: Confirmed By:Francisco Whitney
--- NOTE | 2022-01-14 17:51 | CT Scan Report ---
CT foot LT w con HISTORY: 76 years-old Female poss osteomyelitis acute pain and swelling of the left foot COMPARISON: Acute left foot 06/28/2020, left foot radiographs 08/30/2020 TECHNIQUE: Multiple axial CT images of the left foot were obtained following the intravenous administ ration of 119 mL Optiray 320. A dose lowering technique was used consistent with the principals of ARTURO BURNS. FINDINGS: There is diffuse muscle atrophy with arterial calcifications. Tendons and ligaments are not well eval uated by CT technique. Diffuse skin thickening with mild to moderate subcutaneous edema. No abscess. Multifocal osteoarthritis, moderate to severe within the first MTP joint and severe within the second and third tarsometatarsal joints. There is flexion of the interphalangeal joints. No acute fracture, dislocation or osseous erosion to suggest acute osteomyelitis. IMPRESSION: 1. Diffuse skin thickening with subcutaneous edema of the foot suggestive of cellulitis, lymphedema o r venous stasis. No abscess. 2. No acute fracture, dislocation or osseous erosion to suggest osteomyelitis. 3. Multifocal osteoarthritis redemonstrated. ACT 112: Negative or not required by law. The above report was generated using voice recognition software. It may contain grammatical, syntax o r spelling errors. Electronically signed by: Mitul Garcia M.D. 01/14/2022 5:50 PM
--- NOTE | 2022-01-14 18:12 | CT Scan Report ---
CT angio chest PE protocol HISTORY: 76 years-old Female with PE. Acute shortness of breath TECHNIQUE: Multiple CTA images of the chest were obtained after the intravenous administration of 119 ml Optiray. Coronal and sagittal MIPS were obtained from the axial data set and were submitted for review. All measurements were obtained according to NASCET criteria. A dose lowering technique was u tilized adhering to the principles of ALARA. COMPARISON: Chest radiograph of same day, chest CT 05/05/2019, CT abdomen and pelvis 02/08/2021 FINDING S: CTA: Moderate enlargement of the cardiac silhouette. Prior median sternotomy with prosthetic mitral and ao rtic valves. Extensive [place] coronary artery calcifications. Atherosclerosis of the thoracic aorta w ithout aneurysm or dissection. Unremarkable pulmonary artery. No pulmonary emboli. CT CHEST: Multinodular thyroid goiter with superior mediastinal extension is redemonstrated. Mildly enlarged pa ratracheal and subcarinal lymph nodes measure up to 10-11 mm. No pneumothorax, pleural effusion or ov ert pulmonary edema. Mild linear subsegmental bibasilar predominant atelectasis/scarring. There are s everal ill-defined tiny bilateral pulmonary nodules, most of which measure 2 to 3 mm. 6 L nodule of t he superior segment left lower lobe on image 163. These findings are new from prior study. Central ai rways are patent. Postoperative changes of the stomach. Soft tissue nodules of the abdominal left upper quadrant are re demonstrated suggestive of splenosis. Left-sided renal cysts. 7 mm calcification of the superior pole left kidney. Multilevel degenerative changes of the spine. Chronic L1 compression deformity. Degener ative changes are noted within the shoulders and spine. There are several healing subacute nondisplac ed lateral right sided rib fractures present. There is ill-defined 2.8 cm heterogeneous soft tissue p rominence noted interposed between the lateral right ninth and 10th ribs on image 1 of series 4. IMPRESSION: 1. Cardiomegaly without pulmonary emboli. 2. Ill-defined patchy bilateral nodular densities of the lungs measuring up to 6 mm are new from the prior study and are likely infectious or inflammatory. 3 month follow-up chest CT recommended. 3. Mild mediastinal adenopathy. 4. Healing subacute appearing right lateral rib fractures. Ill-defined partially imaged soft tissue p rominence interposed between the lateral right ninth and 10th ribs should also be evaluated on the fo llow-up study to exclude an underlying lesion. 5. Chronic findings as above. ACT 112: Negative or not required by law. The above report was generated using voice recognition software. It may contain grammatical, syntax o r spelling errors. Electronically signed by: Mitul Garcia M.D. 01/14/2022 6:11 PM
--- NOTE | 2022-01-14 18:26 | History & Physical Report ---
Date of Service January 14, 2022 Assessment & Plan (1) Cellulitis of foot: Plan: Appears to be coming from her 5th right toe ?pressure ulcer Follow up wound and blood cultures Continue IV Zosyn Wound care nurse consult (2) Acute on chronic heart failure with preserved ejection fraction: Plan: Usually takes Bumex PO however she has much bigger response to IV diuretics. Start Bumex 2mg IV BID. No need for additional metolazone a this stage since she took it this morning. Monitor I&Os Daily weights Low salt diet, no need for fluid restriction unless high intake (3) History of Chris-en-Y gastric bypass: Plan: Noted history of this and prior GI bleed in (4) Anticoagulant long-term use: Plan: INR 2.5-3.5 Recently reduced to 5mg MF and 2.5mg PO all other days. Since she is low today will give 5mg PO today and then return to her usual schedule. (5) S/P aortic valve replacement: Plan: mechanical aortic valve noted (6) Permanent atrial fibrillation: Plan: Continue metoprolol succinate (7) GERD (gastroesophageal reflux disease): Plan: Continue pantoprazole PRN (8) Hypertension: Plan: Continue metoprolol succinate 50mg PO BID (9) Hypomagnesemia: Plan: Mg level 1.6. Mg sulphate 1g IV given in ER. Continue Mg Ox 400mg PO BID. Plan: VTE Prophylaxis - warfarin as above Diet - low Na, heart healthy Disposition - admit to med/surg Admission and Anticipated Discharge Date Admission Date: January 14, 2022 History of Present Illness Chief Complaint: Shortness of breath, left foot cellulitis Primary Care Provider: MD Eden Maxwell us a 76 year old female who presents to the ER on advice of her PCP due to erythema of her left foot and shortness of breath. She reports one week of fluid gain related to her eating more salty foods in [place]. She also holds her diuretics on days she is travelling and therefore did not have any diuretics yesterday. She notes her weight is up about 20lb. She usually takes 4mg PO Bumex and additional PRN metolazone which she took this morning. She was given Bumex 1mg IV in the ER with significant diuretic effect of this. She reports erythema around her left foot for the last 2 weeks. No fever or chills. No significant worsening and not been on antibiotics for this. 5th left toe breakdown of skin she feels has happened over the last week, she suspects from her show being too tight. Allergies Allergy/AdvReac Type Severity Reaction Status Date / Time iron [From Venofer] Allergy Severe VENOFER Verified 01/14/22 18:26 INFUSION-RASH,WEAKNESS,BLEEDING-HOSPITALIZED iron dextran complex Allergy Severe RASH Verified 01/14/22 18:26 choline salicylate Allergy Intermediate TRILISATE-r Verified 01/14/22 18:26 nay magnesium salicylate Allergy Intermediate TRILISATE-r Verified 01/14/22 18:26 nay mometasone furoate Allergy Unknown Pt has no Verified 01/14/22 18:26 recollection of this Home Medications Medication Instructions Recorded Confirmed Type multivitamin 1 tab PO QAM 05/06/20 01/14/22 History acetaminophen 500 mg capsule 1,000 mg PO DAILY PRN cap 03/04/21 01/14/22 History polyethylene glycol 3350 17 17 g PO DAILY 03/04/21 01/14/22 History gram/dose oral powder (Miralax) metoprolol succinate 50 mg 50 mg PO BID #180 tab 04/08/21 01/14/22 Rx tablet,extended release 24 hr warfarin 5 mg tablet 5 mg PO .COMPLEX #120 tab 04/15/21 01/14/22 Rx pantoprazole 40 mg tablet,delayed 40 mg PO BID PRN tab 04/22/21 01/14/22 History release triamcinolone acetonide 0.025 % 1 applic TOPICAL .COMPLEX #80 g 08/08/21 01/14/22 Rx topical cream metolazone 5 mg tablet 5 mg PO DIRECTED #30 tab 08/11/21 01/14/22 Rx potassium chloride 20 mEq/15 mL 60 meq PO QAM #3800 ml 08/11/21 01/14/22 Rx oral liquid BD Eclipse 25 gauge x 1" needle #3 ea NS 08/14/21 01/14/22 Rx (safety needles) cyanocobalamin (vitamin B-12) 1,000 mcg IM Q4WK #3 ml 08/15/21 01/14/22 Rx 1,000 mcg/mL injection solution bumetanide 1 mg tablet 1 mg PO DIRECTED PRN #360 tab 09/04/21 01/14/22 Rx atorvastatin 10 mg tablet 10 mg PO QAM #90 tab 11/07/21 01/14/22 Rx oxycodone-acetaminophen 5 mg-325 1 tab PO Q6H PRN #14 tab 12/05/21 01/14/22 Rx mg tablet (Percocet) tramadol 50 mg tablet 50 mg PO TID PRN #90 tab 01/02/22 01/14/22 Rx Past Med/Surg History Medical History Abnormal CT scan, chest Acute blood loss anemia Anastomotic ulcer S/P gastric bypass ASCVD (arteriosclerotic cardiovascular disease) Carotid stenosis, asymptomatic left Carpal tunnel syndrome Cervical radiculopathy Chronic diastolic (congestive) heart failure Diabetic peripheral neuropathy associated with type 2 diabetes mellitus Elevated alkaline phosphatase level Esophageal candidiasis Eustachian tube dysfunction Hearing loss HTN (hypertension) Hyperlipidemia Hypertension 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 Mitral regurgitation Nontoxic multinodular goiter Obesity Obstructive sleep apnea Osteoporosis Pericardial effusion Permanent atrial fibrillation Personal history of diabetic foot ulcer Spinal stenosis, lumbar region with neurogenic claudication Severe L4-5 Venous insufficiency (chronic) (peripheral) Vitamin B12 deficiency Vitamin D deficiency Surgical History H/O gastric bypass H/O hernia repair H/O splenectomy H/O splenectomy History of esophagogastroduodenoscopy (EGD) History of knee replacement History of total abdominal hysterectomy Hx of appendectomy Hx of cholecystectomy Hx of tonsillectomy S/P aortic valve replacement (2011) S/P gastric bypass S/P mitral valve replacement (2011) S/P pericardial window creation (2011) Status post panniculectomy Family History Mother Congestive heart failure Diabetes Hypertension Cardiac disorder Brother Diabetes Polycythemia Pharyngeal neoplasm Pulmonary embolism Father Lung cancer Acute myocardial infarction Hypertension Cardiac disorder Myocardial infarction Denies family history of Ovarian cancer Prostate cancer Crohn's disease Breast cancer Colorectal cancer Social History Smoking Status: Never smoker Second Hand Exposure: No; Hx Alcohol Use: Yes Alcohol type: hard liquor Alcohol type Comment: occassional mixed drink Hx Substance Use: No Preferred Language: Frisian Communication Ability: Effective Visual Impairment: No Limitations Hearing Ability: Normal Manager Financial Required: No Beliefs That Will Affect Care: None marital status: Current Living Situation: Spouse current occupational status: retired How many Children do You have: 1 Feels Safe at Home: Yes Childhood Exposure to Second-Hand Smoke: No Diet Comment: pt watches diet intake s/p gastric bypass surgery caffeine: Yes during the past year weight has: remained stable Dental Care, Regularly: Yes Physical Activity Frequency: 3-4 Times per Week Seatbelt Use: always Sunscreen Use: Yes Assistive Devices: Glasses and Walker Review of Systems Review of Systems: All systems reviewed & are unremarkable except as noted in HPI & below Physical Exam Constitutional: WD/WN, vitals as above no acute distress Eyes: + anicteric sclerae; normal pupil size Respiratory: normal respiratory effort, lungs clear to auscultation Cardiovascular: Rate/Rhythm: + tachycardic and + irregularly irregular Extremities: normal capillary refill and + pedal edema (2+ bilateral equal pre- tibial); no calf tenderness Gastrointestinal (Abdomen): Inspection/Auscultation: normal bowel sounds Percussion/Palpation: abdomen soft; abdomen nontender, no guarding and abdomen not rigid Musculoskeletal: no cyanosis or clubbing, extremities motor strength 5/5 Skin: + ulcer (5th left toe dorsal breakdown of skin) and + erythema (venous stasis b/l LE, left foot erythema, swelling, warmth from 5th toe) Neurologic: moves all extremities and awake; not confused Psychiatric: A+Ox3, euthymic affect Results & Data Results & Data ([facility]) Vital Signs (Past 12 Hours) Vital Signs Temp Pulse Pulse Resp BP BP Pulse Ox 01/14/22 18:00 86 22 177/94 H 93 01/14/22 16:50 84 20 97 01/14/22 16:40 78 20 97 01/14/22 16:30 79 20 164/90 H 98 01/14/22 16:21 20 163/92 H 97 01/14/22 16:20 107 H 87 23 163/92 H 98 01/14/22 16:17 20 96 01/14/22 13:47 36.4 C L 99 H 18 200/86 H 98 Laboratory Results Abnormal lab results 02/23/22 02/23/22 02/23/22 Range/Units 14:19 14:19 14:19 RBC 3.81 L (4.2-5.4) M/uL Hgb 11.4 L (12.0-16.0) g/dL Hct 35.7 L (37-47) % MCHC 31.9 L (32-36) g/dL RDW Std Deviation 53.6 H (36.4-46.3) fL RDW Coeff of Donald 15.4 H (11.5-14.5) % Plt Count 542 H (130-400) K/uL [place] # (Auto) 1.13 H (0.11-0.59) K/uL Eos # (Auto) 0.62 H (0-0.5) K/uL Immature Gran # (Auto) 0.09 H (0.00-0.02) K/uL PT 23.0 H (9.0-12.0) Seconds INR 2.4 H (0.9-1.1) APTT 40.9 H (21.0-31.0) Seconds BUN/Creatinine Ratio 26.3 H (10-20) Glucose 110 H (70-99(Fasting)) mg/dl Magnesium 1.6 L (1.7-2.4) mg/dl Alkaline Phosphatase 157 H (34-104) U/L Globulin 4.2 H (2.5-4.0) gm/dl Diagnostic Findings XR chest 2V PA/lateral HISTORY: 76 years-old Female sob acute shortness of breath COMPARISON: Chest radiographs 11/29/2021 TECHNIQUE: PA and lateral views of the chest FINDINGS: Cardiac silhouette is enlarged. Prior median sternotomy with cardiac valvular prosthesis. Atherosclerosis of the thoracic aorta. No pneumothorax, large pleural effusion or overt pulmonary edema. Chronic interstitial coarsening. Degenerative changes of the shoulders and spine. Surgical clips project over the upper abdomen. Chronic thoracolumbar compression deformities. Rightward deviation of the trachea is redemonstrated secondary to the patient's known thyroid goiter. IMPRESSION: 1. No acute process. 2. Cardiomegaly with chronic interstitial coarsening. CT angio chest PE protocol HISTORY: 76 years-old Female with PE. Acute shortness of breath TECHNIQUE: Multiple CTA images of the chest were obtained after the intravenous administration of 119 ml Optiray. Coronal and sagittal MIPS were obtained from the axial data set and were submitted for review. All measurements were obtained according to NASCET criteria. A dose lowering technique was utilized adhering to the principles of ALARA. COMPARISON: Chest radiograph of same day, chest CT 05/05/2019, CT abdomen and pelvis 02/08/2021 FINDINGS: CTA: Moderate enlargement of the cardiac silhouette. Prior median sternotomy with prosthetic mitral and aortic valves. Extensive [place] coronary artery calcifications. Atherosclerosis of the thoracic aorta without aneurysm or dissection. Unremarkable pulmonary artery. No pulmonary emboli. CT CHEST: Multinodular thyroid goiter with superior mediastinal extension is redemonstrated. Mildly enlarged paratracheal and subcarinal lymph nodes measure up to 10-11 mm. No pneumothorax, pleural effusion or overt pulmonary edema. Mild linear subsegmental bibasilar predominant atelectasis/scarring. There are several ill-defined tiny bilateral pulmonary nodules, most of which measure 2 to 3 mm. 6 L nodule of the superior segment left lower lobe on image 163. These findings are new from prior study. Central airways are patent. Postoperative changes of the stomach. Soft tissue nodules of the abdominal left upper quadrant are redemonstrated suggestive of splenosis. Left-sided renal cysts. 7 mm calcification of the superior pole left kidney. Multilevel degenerative changes of the spine. Chronic L1 compression deformity. Degenerative changes are noted within the shoulders and spine. There are several healing subacute nondisplaced lateral right sided rib fractures present. There is ill-defined 2.8 cm heterogeneous soft tissue prominence noted interposed between the lateral right ninth and 10th ribs on image 1 of series 4. IMPRESSION: 1. Cardiomegaly without pulmonary emboli. 2. Ill-defined patchy bilateral nodular densities of the lungs measuring up to 6 mm are new from the prior study and are likely infectious or inflammatory. 3 month follow-up chest CT recommended. 3. Mild mediastinal adenopathy. 4. Healing subacute appearing right lateral rib fractures. Ill-defined partially imaged soft tissue prominence interposed between the lateral right ninth and 10th ribs should also be evaluated on the follow-up study to exclude an underlying lesion. 5. Chronic findings as above. CT foot LT w con HISTORY: 76 years-old Female poss osteomyelitis acute pain and swelling of the left foot COMPARISON: Acute left foot 06/28/2020, left foot radiographs 08/30/2020 TECHNIQUE: Multiple axial CT images of the left foot were obtained following the intravenous administration of 119 mL Optiray 320. A dose lowering technique was used consistent with the principals of KARISHMA. FINDINGS: There is diffuse muscle atrophy with arterial calcifications. Tendons and ligaments are not well evaluated by CT technique. Diffuse skin thickening with mild to moderate subcutaneous edema. No abscess. Multifocal osteoarthritis, moderate to severe within the first MTP joint and severe within the second and third tarsometatarsal joints. There is flexion of the interphalangeal joints. No acute fracture, dislocation or osseous erosion to suggest acute osteomyelitis. IMPRESSION: 1. Diffuse skin thickening with subcutaneous edema of the foot suggestive of cellulitis, lymphedema or venous stasis. No abscess. 2. No acute fracture, dislocation or osseous erosion to suggest osteomyelitis. 3. Multifocal osteoarthritis redemonstrated. Medications Administered ER Medications Given: Bumex 1mg IV Meganesium sulphate 1g IV Zosyn 4.5g IV ECG Indication: tachycardia Rate (beats per minute): 105 Rhythm: atrial fibrillation Findings: no acute ischemic change Comparison ECG Date: from (February 08, 2021) Change: no significant change Code Status & VTE Plan Code Status Full VTE Prophylaxis Plan VTE Prophylaxis will be ordered: Yes PG Care Time/CCT Total # of Minutes Spent Total Time Spent with Patient: Total time spent is greater than 50% in coordination of care (as documented) at patient's floor/unit and/or counseling patient: Coding Level of Care Code 79595 Initial Inpt Care Lvl 2 Diagnoses History of Chris-en-Y gastric bypass Z98.84 S/P aortic valve replacement Z95.2 Permanent atrial fibrillation I48.21 GERD (gastroesophageal reflux disease) K21.9 Acute on chronic heart failure with preserved ejection fraction I50.33 Anticoagulant long-term use Z79.01 Hypertension I10 Hypertension type: essential hypertension Cellulitis of foot L03.119 Hypomagnesemia E83.42 (1) Hypertension Hypertension type: essential hypertension Qualified Code(s): I10 - Essential (primary) hypertension
[2022-01-14] MEDS ORDERED: traMADol HCL 50 MG TABLET PO STA (20:12)
[2022-01-14] MEDS ORDERED: traMADol HCL 50 MG TABLET PO PRN (21:45)
[2022-01-14] MEDS ORDERED: WARFARIN SOD 5 MG TAB PO ONE (21:45)
[2022-01-14] MEDS ORDERED: oxyCODONE/ACETAMINOPHEN 5mg/325mg TAB PO PRN (21:45)
[2022-01-14] MEDS ORDERED: PANTOprazole 40 MG TAB PO PRN (21:45)
[2022-01-14] MEDS: METOPROLOL SUCC 50MG EXT REL TAB PO SCH (22:36)
[2022-01-14] MEDS: PIPERACILLIN/TAZOBACTAM 3.375 GM in DEXTROSE 5% 100 ML IV SCH (22:36)
[2022-01-15 06:47] LABS: Est GFR (African American) 88.9 ml/min; Est GFR (Non-African American) 76.7 ml/min; Potassium 3.2 mmol/L (3.5-5.1)
[2022-01-15 06:53] LABS: INR 2.3 (0.9-1.1); Prothrombin Time 21.8 Seconds (9.0-12.0)
[2022-01-15] MEDS: PIPERACILLIN/TAZOBACTAM 3.375 GM in DEXTROSE 5% 100 ML IV SCH ×3 (07:28→23:12)
[2022-01-15] MEDS: ACETAMINOPHEN 500 MG TAB PO PRN ×2 (07:37→23:12)
[2022-01-15] MEDS: POTASSIUM CHLORIDE 20 MEQ/15 ML UDC PO SCH (08:42)
[2022-01-15] MEDS: POLYETHYLENE (MIRALAX) 17 GM PACK PO SCH (08:44)
[2022-01-15] MEDS: MULTIVITAMIN TAB PO SCH (08:45)
[2022-01-15] MEDS: ATORVASTATIN 10 MG TAB PO SCH (08:45)
[2022-01-15] MEDS: METOPROLOL SUCC 50MG EXT REL TAB PO SCH ×2 (08:48→20:42)
[2022-01-15] MEDS: BUMETANIDE 2 MG in SYRINGE 0 ML IV SCH ×2 (08:49→16:18)
[2022-01-15] MEDS ORDERED: WARFARIN SOD 2.5 MG TAB PO SCH (16:00)
[2022-01-15] MEDS ORDERED: POTASSIUM CHLORIDE CRTAB 20 MEQ TABCR PO STA (20:31)
--- NOTE | 2022-01-15 20:37 | Hospitalist Progress Note ---
Date of Service January 15, 2022 Assessment & Plan (1) Cellulitis of foot: Plan: Appears to be coming from her 5th right toe ?pressure ulcer Suspect all local infection and improving, but as above noted in HPI1 out of 2 blood cultures is growing gram-positive's. Given that her foot is also growing gram-positive's, while I strongly suspect that the blood culture is a contaminant, definitely want to watch to ensure that the second blood culture does not start to show growth. Before that, given her improvement on the Zosyn, was anticipating sending her home on Augmentin with outpatient wound follow-up. To that end, actually all of her discharge paperwork was essentially completed outside of prescribing the antibiotic. Would follow blood cultures into tomorrow, and if it is clear that is a contaminant, then hopefully home on p.o. antibiotics with outpatient wound follow-up (2) Acute on chronic heart failure with preserved ejection fraction: Plan: Seems to been very mild and quickly resolved. Hold IV Bumex for now, follow (3) History of Chris-en-Y gastric bypass: Plan: Noted history of this and prior GI bleed in (4) Anticoagulant long-term use: Plan: INR currently 2.3 Continue Coumadindose was recently reducedand INR is apparently slightly lower than her goal range of 2.5-3 0.5-5 mg was additionally given yesterdayanticipate a rise in her INR likely by tomorrow from this (5) S/P aortic valve replacement: Plan: mechanical aortic valve notedcontinue anticoagulation (6) Permanent atrial fibrillation: Plan: Rate controlled, anticoagulated (7) GERD (gastroesophageal reflux disease): Plan: Continue pantoprazole PRN (8) Hypertension: Plan: Continue metoprolol succinate 50mg PO BID (9) Hypomagnesemia: Plan: Replaced Plan: Goal is homehopefully home as soon as tomorrow on p.o. antibiotics, was working on discharging patient to home tonight, but 1 out of 2 positive blood culture tubes, given the context, while likely contaminant, warrants further time for grossparticularly in the tube that is showing no growth at this time. When/if it is clear to contaminant, then home, p.o. antibiotics, outpatient wound follow-up Admission and Anticipated Discharge Date Admission Date: January 14, 2022 Subjective ResponseFeeling better. Foot feeling a lot better. Walking without pain. Does still have an ulcer on the top of her foot. Breathing is much better. Would like to get home sooninitially wonders about first thing tomorrow morning, as we discussed further, we even start to plan for discharge home todaybut then on further chart review, she has 1 out of 2 set of that, while likely contaminant, given the context of acute cellulitisshould definitely be followed further prior to discharge. She and her are in the process of moving from [facility] to [place] to be closer to their childrenthey literally are looking to see a house they may purchase this weekend. Review of Systems Review of Systems: All systems reviewed & are unremarkable except as noted in HPI & below Physical Exam Physical Exam: In general she is awake and alert pleasant no distress. HEENT normocephalic atraumatic mucous membranes moist. Breathing unlabored no accessory muscle use good effort. Skin shows chronic venous stasis changes bilateral lower extremities, left foot on the extensor side of the fifth toe there is about a dime sized ulceration, no exudate no surrounding erythema no crepitus. Neuro without focal deficits. Normal gait. Results & Data Results & Data ([facility]) Vital Signs (Past 12 Hours) Vital Signs Temp Pulse Resp BP Pulse Ox 01/15/22 15:54 98.6 F 83 16 159/86 H 95 01/15/22 08:47 92 H 126/75 PG Care Time/CCT Total # of Minutes Spent Total Time Spent with Patient: Total time spent is greater than 50% in coordination of care (as documented) at patient's floor/unit and/or counseling patient: Coding Level of Care Code 63516 Subseq Hosp Care Lvl 3 Diagnoses Cellulitis of foot L03.119 Acute on chronic heart failure with preserved ejection fraction I50.33 History of Chris-en-Y gastric bypass Z98.84 Anticoagulant long-term use Z79.01 S/P aortic valve replacement Z95.2 Permanent atrial fibrillation I48.21 GERD (gastroesophageal reflux disease) K21.9 Hypertension I10 Hypertension type: essential hypertension Hypomagnesemia E83.42 (1) Hypertension Hypertension type: essential hypertension Qualified Code(s): I10 - Essential (primary) hypertension
[2022-01-16] MEDS: PIPERACILLIN/TAZOBACTAM 3.375 GM in DEXTROSE 5% 100 ML IV SCH (06:01)
[2022-01-16 07:52] LABS: Basophils # (auto) 0.11 K/uL (0-0.2); Basophils % (auto) 1.1 %; Eosinophils # (auto) 1.32 K/uL (0-0.5); Eosinophils % (auto) 13.2 %; Hematocrit (blood only) 32.9 % (37-47); Hemoglobin 10.2 g/dL (12.0-16.0); Immature Granulocytes # (auto) 0.11 K/uL (0.00-0.02); Immature Granulocytes % (auto) 1.1 %; Lymphocytes # (auto) 1.63 K/uL (1.2-3.4); Lymphocytes % (auto) 16.3 %; Mean Corpuscular Hemoglobin 29.2 pg (25-34); Mean Corpuscular Volume 94.3 fL (80-100); Monocytes # (auto) 1.13 K/uL (0.11-0.59); Monocytes % (auto) 11.3 %; Neutrophils # (auto) 5.73 K/uL (1.4-6.5); Platelet Count 473 K/uL (130-400); RDW Coefficient of Variation 15.7 % (11.5-14.5); Red Blood Count 3.49 M/uL (4.2-5.4); White Blood Count 10.03 K/uL (4.8-10.8)
[2022-01-16 08:00] LABS: INR 2.8 (0.9-1.1); Prothrombin Time 26.6 Seconds (9.0-12.0)
[2022-01-16 08:17] LABS: BUN Creatinine Ratio 22.2 (10-20); Calcium 8.6 mg/dl (8.5-10.1); Est GFR (African American) 82.3 ml/min; Magnesium 1.6 mg/dl (1.7-2.4); Potassium 2.9 mmol/L (3.5-5.1)
[2022-01-16] MEDS: ATORVASTATIN 10 MG TAB PO SCH (09:03)
[2022-01-16] MEDS: MULTIVITAMIN TAB PO SCH (09:04)
[2022-01-16] MEDS: METOPROLOL SUCC 50MG EXT REL TAB PO SCH (09:04)
[2022-01-16] MEDS: POLYETHYLENE (MIRALAX) 17 GM PACK PO SCH (09:05)
[2022-01-16] MEDS: POTASSIUM CHLORIDE 20 MEQ/15 ML UDC PO SCH (09:05)
[2022-01-16] MEDS ORDERED: MAGNESIUM SULFATE / D5W 1 GM/100 ML BAG IV ONE (10:30)
[2022-01-16] MEDS ORDERED: WARFARIN SOD 5 MG TAB PO SCH (16:00)
--- NOTE | 2022-01-16 17:06 | Discharge Summary ---
Date of Service January 16, 2022 Admission HPI Per Admitting Provider Eden Wagner us a 76 year old female who presents to the ER on advice of her PCP due to erythema of her left foot and shortness of breath. She reports one week of fluid gain related to her eating more salty foods in [place]. She also holds her diuretics on days she is travelling and therefore did not have any diuretics yesterday. She notes her weight is up about 20lb. She usually takes 4mg PO Bumex and additional PRN metolazone which she took this morning. She was given Bumex 1mg IV in the ER with significant diuretic effect of this. She reports erythema around her left foot for the last 2 weeks. No fever or chills. No significant worsening and not been on antibiotics for this. 5th left toe breakdown of skin she feels has happened over the last week, she suspects from her show being too tight. Principal Diagnosis cellulitis to left toe, improved Discharge Exam Testing was removed from the left toe there is a oval area about 1 x 2 cm 1 root skin on her fifth dorsal toe. The erythema is slight surrounding it. There is minor erythema in her lower anterior obrien but this is present bilaterally which gives some flavor of chronic venous stasis changes. Discharge Data Allergies Allergy/AdvReac Type Severity Reaction Status Date / Time iron [From Venofer] Allergy Severe VENOFER Verified 01/14/22 18:26 INFUSION-RASH,WEAKNESS,BLEEDING-HOSPITALIZED iron dextran complex Allergy Severe RASH Verified 01/14/22 18:26 choline salicylate Allergy Intermediate TRILISATE-r Verified 01/14/22 18:26 nay magnesium salicylate Allergy Intermediate TRILISATE-r Verified 01/14/22 18:26 nay mometasone furoate Allergy Unknown Pt has no Verified 01/14/22 18:26 recollection of this Consultations 01/14/22 18:21 ED Decision to Admit Stat Ordered Studies 01/14/22 16:08 CT angio chest PE protocol Stat CT foot LT w con Stat Hospital Course (1) Cellulitis of foot: Appears to be coming from her 5th right toe ?pressure ulcer Wound culture show penicillin sensitive staph, 1 of 2 blood cultures show gram- positive cocci in clusters. PCR testing says this is not staph aureus or MRSA subsequently because of the blood cultures being positive and not being MRSA we will treat for 2 weeks course with Keflex. Patient is moving to [place] for extended period of time she claims that she will establish care there and seek medical attention (2) Acute on chronic heart failure with preserved ejection fraction: Seems to been very mild and quickly resolved. 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 she will have 2 doses on the day of discharge of 60 mEq. She is recommended short- term follow-up with a primary care provider in [place] Total Time Total Time Spent Total Time Spent (In Minutes): It required greater than 30 minutes to prepare this patient for discharge Discharge Plan Discharge Items Patient Disposition: Home - Self-Care Reason For Visit: FOOT CELLULITIS, ACUTE DIASTOLIC CHF Discharge Diagnosis: foot cellulitis Condition on Discharge: Fair Activity: Resume your previous activity Non-emergency contact: Primary Care Provider and Specialist Call non-emergency contact if: you have any medication questions and your symptoms worsen Follow-up/Referrals: ProFernie MD [Primary Care Provider] - 01/21/22 2:00 pm Diet: Low Sodium (2gm) Addtl Attending Provider Instructions: Foot cellulitis and ulcer -Fortunately this improved fairly quickly. It appears safe to get you homewe will finish out a course of oral antibiotics with keflex 500mg 4 x's a day for 10 more days -The ulcer on the top of your foot would really probably benefit best from ongoing care to wound clinic. We are happy to set her up with wound clinic locally, but given that you are moving to [place], obviously that would be quite a long commute! Please try to find a wound clinic close to your new home [place]. If things are not going well, or seem like they are "slipping through the cracks" we are would recommend returning to [facility] for care, rather than risking worsening ulceration/recurrent infections/risk of bone infection/etc. Pending Studies at Discharge: No Stand-Alone Forms: My [facility], Smoking Cessation Medications and DC Order Prescriptions: New cephalexin 500 mg capsule 500 mg PO Q6H 10 Days Qty: 40 RF: 0 Continued warfarin 5 mg tablet 5 mg PO .COMPLEX Qty: 120 RF: 3 potassium chloride 20 mEq/15 mL liquid 60 meq PO QAM Qty: 3800 RF: 2 metolazone 5 mg tablet 5 mg PO DIRECTED Qty: 30 RF: 5 (DME) BD Eclipse 25 gauge x 1" needle See Rx Instructions .ROUTE .MEDSUPPLY Qty: 3 RF: 3 cyanocobalamin (vitamin B-12) 1,000 mcg/mL solution 1,000 mcg IM Q4WK Qty: 3 RF: 3 bumetanide 1 mg tablet 1 mg PO DIRECTED PRN (Reason: Weight Gain) Qty: 360 RF: 3 oxycodone-acetaminophen [Percocet] 5-325 mg tablet 1 tab PO Q6H PRN (Reason: pain) Qty: 14 RF: 0 tramadol 50 mg tablet 50 mg PO TID PRN (Reason: Pain) Qty: 90 RF: 0 multivitamin Tablet 1 tab PO QAM RF: 0 triamcinolone acetonide 0.025 % cream 1 applic topical .COMPLEX Qty: 80 RF: 0 metoprolol succinate 50 mg tablet extended release 24 hr 50 mg PO BID Qty: 180 RF: 3 acetaminophen 500 mg capsule 1,000 mg PO DAILY PRN (Reason: Pain) RF: 0 polyethylene glycol 3350 [Miralax] 17 gram/dose powder 17 g PO DAILY RF: 0 pantoprazole 40 mg tablet,delayed release (DR/EC) 40 mg PO BID PRN (Reason: Indigestion) RF: 0 atorvastatin 10 mg tablet 10 mg PO QAM Qty: 90 RF: 3 Discharge Orders: Discharge Order (Routine); Ordered 01/16/22 Ordered By: Stuart Deleon/Other Patient Handouts: ED Cellulitis Admission Data Admit Date/Time: 01/14/22 19:00 Attending Provider: Stuart Peters Admit Provider: Tunde Hester Primary Care Provider: Fernie Rodriguez Other Providers: Tunde Hester Other Interventions: Discharge Summary Assessment (RN) Last Done: 01/16/22 12:42 Coding Level of Care Code D/C DAY MANAGEMENT >30 MINS Diagnoses Cellulitis of foot L03.119 Acute on chronic heart failure with preserved ejection fraction I50.33 History of Chris-en-Y gastric bypass Z98.84 Anticoagulant long-term use Z79.01 S/P aortic valve replacement Z95.2 Permanent atrial fibrillation I48.21 GERD (gastroesophageal reflux disease) K21.9 Hypertension I10 Hypertension type: essential hypertension Hypomagnesemia E83.42
[2022-01-16] MEDS ORDERED: POTASSIUM CHLORIDE 20 MEQ/15 ML UDC PO ONE (21:00)
[2022-01-16] MEDS ORDERED: POTASSIUM CHLORIDE CRTAB 20 MEQ TABCR PO SCH (21:00)
--- NOTE | 2022-01-20 10:14 | Pharmacy Report ---
ED Pharmacist Culture FollowUP - Culture Follow Up Note Date of Service: January 20, 2022 Notes:: Blood culture (+) CoNS in 11/25 (MRSA, Staph PCR (-)). Patient was admitted to the hospital and received a course of IV antibiotics; has since been discharged. No further action required.
== END 2022-01-16 13:55 | disposition home or self-care (01) | DRG 291 ==
LOC: ED 13:41 → 3N 19:00 → SUATTDRO 19:00 → 3N 21:24

== ENCOUNTER 2022-02-16 17:30 | Inpatient (IN) ==
--- NOTE | 2022-02-16 18:02 | XRay Report ---
SINGLE VIEW CHEST CLINICAL HISTORY: Dyspnea. FINDINGS: An AP, portable, upright chest radiograph is compared to chest x-ray and chest CT dated 12/24. The patient is status post midline sternotomy and cardiac valve surgery. The heart is enlarge d noting atherosclerotic calcification of the thoracic aorta. There is pulmonary vascular congestion. Bilateral airspace opacities are observed. There is bibasilar scarring/atelectasis. No large pleural effusion or pneumothorax is seen. The skeletal structures are osteopenic. The bony thorax is grossly intact. Advanced arthritic change is noted in the right shoulder. Cholecystectomy clips are noted in the right upper quadrant. IMPRESSION: 1. Cardiomegaly with evidence of congestive failure. 2. Bilateral airspace opacities likely represent mild pulmonary edema. Correlate clinically for evide nce of a superimposed infectious/inflammatory pneumonitis. Radiographic follow-up to resolution is re commended ACT 112: Negative or not required by law. Electronically signed by: Albert Pettit M.D. 02/16/2022 6:01 PM
[2022-02-16 18:18] LABS: Basophils # (auto) 0.06 K/uL (0-0.2); Basophils % (auto) 0.3 %; Eosinophils # (auto) 0.91 K/uL (0-0.5); Eosinophils % (auto) 4.5 %; Immature Granulocytes # (auto) 0.06 K/uL (0.00-0.02); Immature Granulocytes % (auto) 0.3 %; Mean Corpuscular Hgb Conc 32.4 g/dL (32-36); Mean Corpuscular Volume 89.7 fL (80-100); Monocytes # (auto) 0.84 K/uL (0.11-0.59); Monocytes % (auto) 4.2 %; Neutrophils % (auto) 85.7 %; Platelet Count 598 K/uL (130-400); RDW Coefficient of Variation 15.5 % (11.5-14.5); RDW Standard Deviation 51.1 fL (36.4-46.3); Red Blood Count 3.79 M/uL (4.2-5.4); White Blood Count 20.17 K/uL (4.8-10.8)
[2022-02-16] MEDS ORDERED: SODIUM CHLORIDE 0.9% 1000ML 500 ML IV ONE (18:25)
[2022-02-16] MEDS ORDERED: ACETAMINOPHEN 1,000 MG/100 ML VIAL IV STA (18:27)
[2022-02-16] MEDS ORDERED: CEFEPIME 2,000 MG/20 ML VIAL IV STA (18:28)
[2022-02-16] MEDS ORDERED: SODIUM CHLORIDE 0.9% 1000ML 1,000 ML IV SCH (18:30)
[2022-02-16 18:36] LABS: INR 2.4 (0.9-1.1); Partial Thromboplastin Ratio 1.4; Partial Thromboplastin Time 37.9 Seconds (21.0-31.0)
[2022-02-16 18:46] LABS: Albumin Level 4.2 gm/dl (3.4-5.0); BUN Creatinine Ratio 33.3 (10-20); Bilirubin,Total 0.7 mg/dl (0.2-1.0); Calcium 10.1 mg/dl (8.5-10.1); Creatinine Clr Calc Pharmacy 57.8 ml/min; Est GFR (African American) 56.3 ml/min; Est GFR (Non-African American) 48.5 ml/min; Globulin 4.2 gm/dl (2.5-4.0); Magnesium 1.4 mg/dl (1.7-2.4); Potassium 3.9 mmol/L (3.5-5.1); Total Protein 8.4 gm/dl (6.0-8.3); Troponin I 0.03 ng/ml (0-0.04)
[2022-02-16] MEDS ORDERED: OPTIRAY 320 100ml IV ONE (19:17)
--- NOTE | 2022-02-16 19:33 | CT Scan Report ---
CT SCAN OF THE ABDOMEN AND PELVIS WITH IV CONTRAST CLINICAL HISTORY: Lower abdominal pain. Fever. COMPARISON STUDY: Abdominal CT dated 02/08/2021. TECHNIQUE: Following the IV administration of 94 cc of Optiray 320, CT scan of the abdomen and pelvi s is performed from the lung bases to the proximal femora. Images are reviewed in the axial, sagittal , and coronal planes. IV contrast was administered without complication. A dose lowering technique wa s utilized adhering to the principles of ALARA. The examination is degraded by motion artifact. There is also streak artifact from the right arm which could not be elevated above the abdomen. CT DOSE: 819.51 mGy.cm FINDINGS: Lung bases: The patient is status post midline sternotomy and cardiac valve surgeries. The coronary a rteries are densely calcified. The enlarged and and without pericardial effusion. The lung bases are clear noting bibasilar scarring/atelectasis. Liver: The contrast-enhanced liver is mildly enlarged measuring 18.6 cm in length. The liver is cirrh otic in morphology and heterogeneous in attenuation comment noting nodularity of the hepatic surface contour. There is no intrahepatic biliary ductal dilatation. The hepatic veins and portal veins are p atent. Mild periportal edema is observed. Gallbladder: Surgically absent noting clips in the gallbladder fossa. 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 Numerous sple nules in the left upper quadrant measure up to 3.2 cm. Pancreas: The pancreas is atrophic and grossly unremarkable. Adrenal glands: Unremarkable. Kidneys: The contrast enhanced kidneys are normal in size and without hydronephrosis. The kidneys enh ance symmetrically. There are numerous bilateral renal cysts which measure up to 3 cm. Additional sub centimeter cortical hypodensities also likely represent cysts but are too small for definitive charac terization. There is a 3 mm nonobstructing right renal calculus. Abdominal vasculature: The abdominal aorta is normal in course and caliber noting moderate to advance d atherosclerotic calcification. Stomach and bowel: Postoperative changes consistent with a Chris-en-Y gastric bypass surgery. There is no bowel obstruction. Mildly distended small bowel loops are the distal anastomosis are likely relat ed to denervation. The appendix is well-visualized and normal. Peritoneum: There is no intraperitoneal free air or abdominal ascites. There is laxity of the ventral abdominal wall with diastases of the rectus musculature and protrusion of abdominal contents. Lymphadenopathy: There are prominent retroperitoneal, left iliac chain, and left inguinal lymph nodes . The left external iliac chain node node on image #355 measures 13 mm in short axis Left inguinal no keely measure up to 12 mm in short axis. Pelvic viscera: The bladder is normal as visualized. The uterus is surgically absent. No adnexal lesi on is seen. Skeletal structures: The skeletal structures are osteopenic. There is moderate lumbosacral spondylosi s. There are chronic compression deformities of L1, L2, and L4. No lytic or blastic lesions are seen. IMPRESSION: 1. There are no acute infectious or inflammatory findings in the abdomen or pelvis. 2. 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 No bowel obstructi on is seen. 3. The liver is enlarged, heterogeneous, and cirrhotic in morphology. 4. There are prominent retroperitoneal, left iliac chain, and left inguinal lymph nodes. These have i ncreased in size from 02/08/2021 and may be reactive. Clinical correlation will be required. 5. Right-sided nephrolithiasis. 6. Additional findings as above. ACT 112: Negative or not required by law. Electronically signed by: Albert Pettit M.D. 02/16/2022 7:30 PM
[2022-02-16] MEDS: MAGNESIUM SULFATE / D5W 1 GM/100 ML BAG IV SCH ×2 (19:34→21:17)
[2022-02-16 20:31] LABS: Influenza A virus by PCR Negative (Neg); Influenza B virus by PCR Negative (Neg); RSV by PCR Negative (Neg); SARS CoV2 RNA(COVID-19) InHosp NEGATIVE (Negative)
[2022-02-16 21:04] LABS: Appearance Urine Clear (Clear); Bilirubin Urine Negative (Negative); Blood Urine Negative (Negative); Color Urine Yellow; Glucose Urine UA Negative (Negative); Ketones Urine Negative (Negative); Leukocyte Esterase Urine Negative (Negative); Nitrite Urine Negative (Negative); Protein Urine Negative (Negative); Specific Gravity Urine 1.007 (1.000-1.030); Urobilinogen Urine Negative (Negative)
[2022-02-16] MEDS ORDERED: METOPROLOL TARTRATE 1 MG/ML VIAL IV STA (21:43)
[2022-02-16] MEDS ORDERED: MAGNESIUM SULFATE / D5W 1 GM/100 ML BAG IV STA (22:25)
[2022-02-16] MEDS ORDERED: METOPROLOL SUCC 50MG EXT REL TAB PO STA (22:27)
[2022-02-16] MEDS ORDERED: SUCRALFATE 1 GM/10 ML UDC PO STA (22:27)
[2022-02-16] MEDS ORDERED: PANTOprazole 40 MG TAB PO STA (22:27)
[2022-02-16] MEDS ORDERED: WARFARIN SOD 5 MG TAB PO ONE (22:27)
--- NOTE | 2022-02-16 22:27 | History & Physical Report ---
Date of Service February 16, 2022 Assessment & Plan (1) Sepsis: Plan: 76yo female with multiple medical comorbidities presenting with sepsis syndrome - fever of 39.3, tachycardia, WBC=20.17 with neutrophil predominance. Patient's blood pressure is stable. Lactate is normal at 1.1. Sources include infection of LLE/cellulitis vs infected cyst? possible PNA given? -Admit to medical with telemetry -Check Procalcitonin, BNP, CK -Follow cultures sent by ER -Empiric coverage with Vancomycin and Cefepime - patient is asplenic -Tylenol as needed for pain or fever -If LLE pain persists would consider MRI to further assess collection (2) Hx of aortic valve replacement, mechanical: Plan: Patient with mechanical aortic and mitral valves in place. INR subtherapeutic at 2.4. -Continue Coumadin - 5mg PM dose to be given in ER -INR in AM -If subtherapeutic with AM labs would consider bridging - high risk for thrombosis with mechanical valves x 2 (3) Permanent atrial fibrillation: Plan: RVR on arrival. Improved with administration of Metoprolol 5mg IV in the ER -Continue Metoprolol 50mg po BID -Continue Coumadin as above -INR in AM -Telemetry montiorng (4) Lower extremity edema: Plan: Patient reports LE edema -Continue Bumex 4mg po daily -Continue daily potassium supplemetation -Monitor daily weights -Monitor I/Os -Check BNP (5) Anastomotic ulcer: Plan: Patient with recent hospitalization in [facility] for GIB from anastomotic ulcers. She was started on Protonix and Carafate. No additional bleeding noted. Hgb=11 (reportedly 7 at OSH - no transfusion given) -Continue Protonix 40mg po BID -Continue Sucralfate (6) Hypomagnesemia: Plan: Mg low at 1.4 -replete with 2 additional grams overnight -Repeat Mg level in AM (7) Hyperlipidemia: Plan: Chronic. -Continue Atorvastatin (8) Diabetes: Plan: Diet controlled. Blood ntnev=565. -Lantus 5BID -ISS History of Present Illness Chief Complaint: fever, rigors SOB Primary Care Provider: Fernie Rodriguez MD Eden Wagner is a 76yo female with history of permanent atrial fibrillation, mechanical aortic and mitral valves on Coumadin anticoagulation with INR of 2.4 today, CAD, HTN, HLP presenting with acute onset fever, chills, rigors and SOB. Patient reports being in her usual state of health. She has had some increased bilateral LE edema of late, otherwise no complaints. She was running errands this AM around 10:00 when she developed acute left calf pain followed by SOB, fever and rigors. She has fever, chills rigors. Chronic dry cough. SOB as well as some chest tightness. She denies abdominal pain, nausea, vomiting, diarrhea or constipation. No dysuria/frequency or urgency. She has been eating well at home. No melena/hematochezia. Still with pain in her left posterior calf. Patient is in the process of relocating to [facility]. She was hospitalized at [facility] 2-3 weeks ago with GIB secondary to anastomotic ulcers from GBP. She reports her Hgb got down to 7. She did not receive a transfusion. She was started on Protonix 40mg po BID and Carafate TID. ER Course: Tylenol, Cefepime, Mg x 1gm, Metoprolol 5mg IV, Metoprolol 50mg po, Protonix 40mg po, Coumadin 5mg po, Sucralfate x 1gm, NSS x 1L Allergies Allergy/AdvReac Type Severity Reaction Status Date / Time iron [From Venofer] Allergy Severe VENOFER Verified 02/16/22 22:03 INFUSION-RASH,WEAKNESS,BLEEDING-HOSPITALIZED iron dextran complex Allergy Severe RASH Verified 02/16/22 22:03 choline salicylate Allergy Intermediate TRILISATE-r Verified 02/16/22 22:03 nay magnesium salicylate Allergy Intermediate TRILISATE-r Verified 02/16/22 22:03 nay mometasone furoate Allergy Unknown Pt has no Verified 02/16/22 22:03 recollection of this Home Medications Medication Instructions Recorded Confirmed Type multivitamin 1 tab PO QAM 05/06/20 02/16/22 History acetaminophen 500 mg capsule 1,000 mg PO DAILY PRN cap 03/04/21 02/16/22 History metoprolol succinate 50 mg 50 mg PO BID #180 tab 04/08/21 02/16/22 Rx tablet,extended release 24 hr warfarin 5 mg tablet 5 mg PO .COMPLEX #120 tab 04/15/21 02/16/22 Rx pantoprazole 40 mg tablet,delayed 40 mg PO BID tab 04/22/21 02/16/22 History release metolazone 5 mg tablet 5 mg PO DIRECTED #30 tab 08/11/21 02/16/22 Rx BD Eclipse 25 gauge x 1" needle #3 ea NS 08/14/21 02/16/22 Rx (safety needles) cyanocobalamin (vitamin B-12) 1,000 mcg IM Q4WK #3 ml 08/15/21 02/16/22 Rx 1,000 mcg/mL injection solution atorvastatin 10 mg tablet 10 mg PO QAM #90 tab 11/07/21 02/16/22 Rx oxycodone-acetaminophen 5 mg-325 1 tab PO Q6H PRN #14 tab 12/05/21 02/16/22 Rx mg tablet (Percocet) tramadol 50 mg tablet 50 mg PO TID PRN #90 tab 01/02/22 02/16/22 Rx polyethylene glycol 3350 17 17 g PO DAILY PRN 02/10/22 02/16/22 History gram/dose oral powder (Miralax) bumetanide 1 mg tablet 4 mg PO QAM 02/16/22 02/16/22 History potassium chloride 20 mEq/15 mL See Rx Instructions .ROUTE .COMPLEX 02/16/22 02/16/22 History oral liquid sucralfate 1 gram tablet 1 g PO TID 02/16/22 02/16/22 History Past Med/Surg History Medical History (Updated 02/16/22 @ 23:01 by Lynnette Monroe DO) Abnormal CT scan, chest Acute blood loss anemia Anastomotic ulcer S/P gastric bypass ASCVD (arteriosclerotic cardiovascular disease) Carotid stenosis, asymptomatic left Carpal tunnel syndrome Cervical radiculopathy Chronic diastolic (congestive) heart failure Diabetic peripheral neuropathy associated with type 2 diabetes mellitus Elevated alkaline phosphatase level Esophageal candidiasis Eustachian tube dysfunction Hearing loss HTN (hypertension) Hyperlipidemia 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 Mitral regurgitation Nontoxic multinodular goiter Obesity Obstructive sleep apnea Osteoporosis Pericardial effusion Permanent atrial fibrillation Personal history of diabetic foot ulcer Spinal stenosis, lumbar region with neurogenic claudication 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 Vitamin B12 deficiency Vitamin D deficiency Surgical History (Updated 02/10/22 @ 13:12 by Obey Lee MD) H/O gastric bypass H/O hernia repair H/O splenectomy H/O splenectomy History of esophagogastroduodenoscopy (EGD) History of knee replacement bilateral History of total abdominal hysterectomy many years ago, fibroids, bleeding Hx of appendectomy Hx of cholecystectomy Hx of tonsillectomy S/P gastric bypass S/P pericardial window creation (2011) Status post panniculectomy Family History Mother Congestive heart failure Diabetes Hypertension Cardiac disorder Brother Diabetes Polycythemia Pharyngeal neoplasm Pulmonary embolism Father Lung cancer Acute myocardial infarction Hypertension Cardiac disorder Myocardial infarction Denies family history of Ovarian cancer Prostate cancer Crohn's disease Breast cancer Colorectal cancer Social History Smoking Status: Never smoker Second Hand Exposure: No; Hx Alcohol Use: Yes Alcohol type: hard liquor Alcohol type Comment: occassional mixed drink Hx Substance Use: No Preferred Language: [place] Communication Ability: Effective Visual Impairment: No Limitations Hearing Ability: Normal Engineer Third Assistant Required: No Beliefs That Will Affect Care: None marital status: Current Living Situation: Spouse and Family current occupational status: retired How many Children do You have: 1 Other Information That Helps Us Care for You: No Feels Safe at Home: Yes Safety Concerns: Feels Safe At This Time Childhood Exposure to Second-Hand Smoke: No Diet Comment: pt watches diet intake s/p gastric bypass surgery caffeine: Yes during the past year weight has: remained stable Dental Care, Regularly: Yes Physical Activity Frequency: 3-4 Times per Week Seatbelt Use: always Sunscreen Use: Yes Assistive Devices: Glasses Review of Systems Review of Systems: All systems reviewed & are unremarkable except as noted in HPI & below Physical Exam Physical Exam: General: patient resting comfortably, NAD, non-toxic in appearance, AA&O x 4 Skin: warm, dry, ulcer on left 5th digit with eschar, no erythema/edema or purulence HEENT: NC/AT, PERRL, EOMI, anicteric sclera, conjunctiva without injection, external ear normal to inspection and nontender, nares patent, moist mucus membranes, dentition intact, no oropharyngeal lesions, neck supple, trachea midline, no LAD, no thyromegaly, no JVD Heart: +S1/S2, irregularly irregular, tachycardic, systolic mechanical click present across precordium Lungs: equal air entry bilaterally, no rales/rhonchi/wheezes Abd: +BS, soft, mild tenderness with deep palpation, no rebound/guarding/peritoneal signs, no masses/organomegaly/ascites Ext: warm, 2+ pulses in UE/LE bilaterally, 2+ edema of bilateral LE, warmth and redness present at ankles, tenderness with palpation of left posterior calf with some swelling. No crepitus/bullae/lymphangitic streaking, ulcer at left 5th digit with eschar, no obvious infection Neuro: nonfocal, patient AA&O x 4, speech intact, no facial droop, moving all extremities on command with equal strength 5/5 Results & Data Results & Data ([facility]) Vital Signs (Past 12 Hours) Vital Signs Temp Pulse Pulse Resp BP BP Pulse Ox 02/16/22 22:01 129 H 167/79 H 02/16/22 21:24 112 H 18 167/79 H 93 02/16/22 19:34 37.8 C H 111 H 20 117/69 96 02/16/22 18:17 137 H 137 H 20 183/94 H 97 02/16/22 17:34 39.3 C H 136 H 28 H 168/86 H 97 Laboratory Results Laboratory Results WBC 20.17 K/uL (4.8-10.8) H 02/16/22 18:06 RBC 3.79 M/uL (4.2-5.4) L 02/16/22 18:06 Hgb 11.0 g/dL (12.0-16.0) L 02/16/22 18:06 Hct 34.0 % (37-47) L 02/16/22 18:06 MCV 89.7 fL (80-100) 02/16/22 18:06 MCH 29.0 pg (25-34) 02/16/22 18:06 MCHC 32.4 g/dL (32-36) 02/16/22 18:06 RDW Std Deviation 51.1 fL (36.4-46.3) H 02/16/22 18:06 RDW Coeff of Donald 15.5 % (11.5-14.5) H 02/16/22 18:06 Plt Count 598 K/uL (130-400) H 02/16/22 18:06 MPV 9.0 fL (7.4-10.4) 02/16/22 18:06 Immature Gran % (Auto) 0.3 % 02/16/22 18:06 Neut % (Auto) 85.7 % 02/16/22 18:06 Lymph % (Auto) 5.0 % 02/16/22 18:06 [place] % (Auto) 4.2 % 02/16/22 18:06 Eos % (Auto) 4.5 % 02/16/22 18:06 Baso % (Auto) 0.3 % 02/16/22 18:06 Neut # (Auto) 17.30 K/uL (1.4-6.5) H 02/16/22 18:06 Lymph # (Auto) 1.00 K/uL (1.2-3.4) L 02/16/22 18:06 [place] # (Auto) 0.84 K/uL (0.11-0.59) H 02/16/22 18:06 Eos # (Auto) 0.91 K/uL (0-0.5) H 02/16/22 18:06 Baso # (Auto) 0.06 K/uL (0-0.2) 02/16/22 18:06 Immature Gran # (Auto) 0.06 K/uL (0.00-0.02) H 02/16/22 18:06 PT 24.0 Seconds (9.0-12.0) H 02/16/22 18:06 INR 2.4 (0.9-1.1) H 02/16/22 18:06 APTT 37.9 Seconds (21.0-31.0) H 02/16/22 18:06 PTT Ratio 1.4 02/16/22 18:06 Sodium 136 mmol/L (136-145) 02/16/22 18:06 Potassium 3.9 mmol/L (3.5-5.1) 02/16/22 18:06 Chloride 103 mmol/L (98-107) 02/16/22 18:06 Carbon Dioxide 22 mmol/L (21-32) 02/16/22 18:06 Anion Gap 11 (3-11) 02/16/22 18:06 BUN 37 mg/dl (6-23) H 02/16/22 18:06 Creatinine 1.11 mg/dl (0.6-1.2) 02/16/22 18:06 Est Cr Clr Drug Dosing 57.8 ml/min 02/16/22 18:06 Est GFR ( Amer) 56.3 ml/min 02/16/22 18:06 Est GFR (Non-Af Amer) 48.5 ml/min 02/16/22 18:06 BUN/Creatinine Ratio 33.3 (10-20) H 02/16/22 18:06 Glucose 145 mg/dl (70-99(Fasting)) H 02/16/22 18:06 Lactate 1.1 mmol/L (0.4-2.0) 02/16/22 18:39 Calcium 10.1 mg/dl (8.5-10.1) 02/16/22 18:06 Magnesium 1.4 mg/dl (1.7-2.4) L 02/16/22 18:06 Total Bilirubin 0.7 mg/dl (0.2-1.0) 02/16/22 18:06 AST 34 U/L (13-39) 02/16/22 18:06 ALT 20 U/L (7-52) 02/16/22 18:06 Alkaline Phosphatase 158 U/L (34-104) H 02/16/22 18:06 Troponin I 0.03 ng/ml (0-0.04) 02/16/22 18:06 Total Protein 8.4 gm/dl (6.0-8.3) H 02/16/22 18:06 Albumin 4.2 gm/dl (3.4-5.0) 02/16/22 18:06 Globulin 4.2 gm/dl (2.5-4.0) H 02/16/22 18:06 Albumin/Globulin Ratio 1.0 (0.9-2) 02/16/22 18:06 Urine Color Yellow 02/16/22 17:50 Urine Appearance Clear (Clear) 02/16/22 17:50 Urine pH 5.0 (4.5-7.5) 02/16/22 17:50 Ur Specific [place] 1.007 (1.000-1.030) 02/16/22 17:50 Urine Protein Negative (Negative) 02/16/22 17:50 Urine Glucose (UA) Negative (Negative) 02/16/22 17:50 Urine Ketones Negative (Negative) 02/16/22 17:50 Urine Blood Negative (Negative) 02/16/22 17:50 Urine Nitrite Negative (Negative) 02/16/22 17:50 Urine Bilirubin Negative (Negative) 02/16/22 17:50 Urine Urobilinogen Negative (Negative) 02/16/22 17:50 Ur Leukocyte Esterase Negative (Negative) 02/16/22 17:50 SARS-CoV-2 (PCR) NEGATIVE (Negative) 02/16/22 19:40 Influenza Type A (PCR) Negative (Neg) 02/16/22 19:40 Influenza Type B (PCR) Negative (Neg) 02/16/22 19:40 RSV (RT-PCR) Negative (Neg) 02/16/22 19:40 Impressions Chest X-Ray 02/16/22 17:41 SINGLE VIEW CHEST CLINICAL HISTORY: Dyspnea. FINDINGS: An AP, portable, upright chest radiograph is compared to chest x-ray and chest CT dated 01/14/2022. The patient is status post midline sternotomy and cardiac valve surgery. The heart is enlarged noting atherosclerotic calcification of the thoracic aorta. There is pulmonary vascular congestion. Bilateral airspace opacities are observed. There is bibasilar scarring/atelectasis. No large pleural effusion or pneumothorax is seen. The skeletal structures are osteopenic. The bony thorax is grossly intact. Advanced arthritic change is noted in the right shoulder. Cholecystectomy clips are noted in the right upper quadrant. IMPRESSION: 1. Cardiomegaly with evidence of congestive failure. 2. Bilateral airspace opacities likely represent mild pulmonary edema. Correlate clinically for evidence of a superimposed infectious/inflammatory pneumonitis. Radiographic follow-up to resolution is recommended ACT 112: Negative or not required by law. Electronically signed by: Albert Pettit M.D. 02/16/2022 6:01 PM Abdomen/Pelvis CT 02/16/22 18:31 CT SCAN OF THE ABDOMEN AND PELVIS WITH IV CONTRAST CLINICAL HISTORY: Lower abdominal pain. Fever. COMPARISON STUDY: Abdominal CT dated 02/08/2021. TECHNIQUE: Following the IV administration of 94 cc of Optiray 320, CT scan of the abdomen and pelvis is performed from the lung bases to the proximal femora. Images are reviewed in the axial, sagittal, and coronal planes. IV contrast was administered without complication. A dose lowering technique was utilized adhering to the principles of ALARA. The examination is degraded by motion artifact. There is also streak artifact from the right arm which could not be elevated above the abdomen. CT DOSE: 819.51 mGy.cm FINDINGS: Lung bases: The patient is status post midline sternotomy and cardiac valve surgeries. The coronary arteries are densely calcified. The enlarged and and without pericardial effusion. The lung bases are clear noting bibasilar scarring/atelectasis. Liver: The contrast-enhanced liver is mildly enlarged measuring 18.6 cm in length. The liver is cirrhotic in morphology and heterogeneous in attenuation comment noting nodularity of the hepatic surface contour. There is no intrahepatic biliary ductal dilatation. The hepatic veins and portal veins are patent. Mild periportal edema is observed. Gallbladder: Surgically absent noting clips in the gallbladder fossa. 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 Numerous splenules in the left upper quadrant measure up to 3.2 cm. Pancreas: The pancreas is atrophic and grossly unremarkable. Adrenal glands: Unremarkable. Kidneys: The contrast enhanced kidneys are normal in size and without hydronephrosis. The kidneys enhance symmetrically. There are numerous bilateral renal cysts which measure up to 3 cm. Additional subcentimeter cortical hypodensities also likely represent cysts but are too small for definitive characterization. There is a 3 mm nonobstructing right renal calculus. Abdominal vasculature: The abdominal aorta is normal in course and caliber noting moderate to advanced atherosclerotic calcification. Stomach and bowel: Postoperative changes consistent with a Chris-en-Y gastric bypass surgery. There is no bowel obstruction. Mildly distended small bowel loops are the distal anastomosis are likely related to denervation. The appendix is well-visualized and normal. Peritoneum: There is no intraperitoneal free air or abdominal ascites. There is laxity of the ventral abdominal wall with diastases of the rectus musculature and protrusion of abdominal contents. Lymphadenopathy: There are prominent retroperitoneal, left iliac chain, and left inguinal lymph nodes. The left external iliac chain node node on image #355 measures 13 mm in short axis Left inguinal nodes measure up to 12 mm in short axis. Pelvic viscera: The bladder is normal as visualized. The uterus is surgically absent. No adnexal lesion is seen. Skeletal structures: The skeletal structures are osteopenic. There is moderate lumbosacral spondylosis. There are chronic compression deformities of L1, L2, and L4. No lytic or blastic lesions are seen. IMPRESSION: 1. There are no acute infectious or inflammatory findings in the abdomen or pelvis. 2. 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 No bowel obstruction is seen. 3. The liver is enlarged, heterogeneous, and cirrhotic in morphology. 4. There are prominent retroperitoneal, left iliac chain, and left inguinal lymph nodes. These have increased in size from 02/08/2021 and may be reactive. Clinical correlation will be required. 5. Right-sided nephrolithiasis. 6. Additional findings as above. ACT 112: Negative or not required by law. Electronically signed by: Albert Pettit M.D. 02/16/2022 7:30 PM LLE Doppler - Per STAT rad - suboptimal exam secondary to body habitus. No visualized DVT. Complex collection in the left popliteal fossa likely a Chance's cyst ECG Additional Comments: EKT with AF with RVR at 138bpm with PVCs, diffuse ST change, ?rate related Code Status & VTE Plan VTE Prophylaxis Plan VTE Prophylaxis will be ordered: Yes PG Care Time/CCT Total # of Minutes Spent Total Time Spent with Patient: Total time spent is greater than 50% in coordination of care (as documented) at patient's floor/unit and/or counseling patient: Coding Level of Care Code 36036 Initial Inpt Care Lvl 3 Diagnoses Hx of aortic valve replacement, mechanical Z95.2 Lower extremity edema R60.0 Permanent atrial fibrillation I48.21 Anastomotic ulcer K28.9 Sepsis A41.9 Hypomagnesemia E83.42 Hyperlipidemia E78.5 Diabetes E11.9
[2022-02-16] MEDS ORDERED: POLYETHYLENE (MIRALAX) 17 GM PACK PO PRN (23:49)
[2022-02-16] MEDS ORDERED: ONDANSETRON INJ 2 MG/ML 2 ML VIAL IV PRN (23:49)
[2022-02-16] MEDS ORDERED: GLUCOSE 10 TABS/TUBE PO PRN (23:49)
[2022-02-16] MEDS ORDERED: CARBOHYDRATES FOR HYPOGLYCEMIA PO PRN (23:49)
[2022-02-16] MEDS ORDERED: GLUCOSE 40% GEL 15 GM TUBE PO PRN (23:49)
[2022-02-16] MEDS ORDERED: DEXTROSE 50% 50 ML SYRINGE IV PRN (23:49)
[2022-02-16] MEDS ORDERED: VANCOMYCIN CONSULT ACTIVE PRN (23:49)
[2022-02-16] MEDS ORDERED: VANCOMYCIN HCL 1,000 MG in SODIUM CHLORIDE 0.9% 250 ML IV SCH (23:49)
[2022-02-16] MEDS ORDERED: GLUCAGON FOR INJ 1 MG VIAL SQ PRN (23:49)
[2022-02-16] MEDS ORDERED: traMADol HCL 50 MG TABLET PO PRN (23:49)
[2022-02-17] MEDS ORDERED: VANCOMYCIN HCL 2,500 MG in SODIUM CHLORIDE 0.9% 500 ML IV SCH (01:00)
--- NOTE | 2022-02-17 03:11 | Pharmacy Report ---
Pharmacy Abx Initial Consult - Date of Service February 17, 2022 - Pharmacy Dosing Scope Date of Consult: 02/17/22 Consultation requested by: Dr. Lynnette Monroe Pharmacy is consulted to initiate Vancomycin IV dosing therapy, order appropriate labs and adjust drug dose/frequency. - Subjective The patient is a 76 year old F admitted on 02/16/22 22:25. - Objective Height: 5 ft 9 in Weight: 100.1 kg Vital Signs (Past 12hrs): Vital Signs Temp Pulse Pulse Resp BP BP Pulse Ox 02/17/22 00:15 110 H 02/16/22 23:53 36.8 C 113 H 18 147/78 H 95 02/16/22 23:03 106 H 18 151/75 H 93 02/16/22 22:56 106 H 18 142/74 H 94 02/16/22 22:01 129 H 167/79 H 02/16/22 21:24 112 H 18 167/79 H 93 02/16/22 19:34 37.8 C H 111 H 20 117/69 96 02/16/22 18:17 137 H 137 H 20 183/94 H 97 02/16/22 17:34 39.3 C H 136 H 28 H 168/86 H 97 Lab Results (24hrs): Laboratory Tests (24 Hours) 02/16/22 02/16/22 02/16/22 23:54 23:54 18:06 WBC Neut # (Auto) Creatinine 1.11 Est Cr Clr Drug Dosing 57.8 Total Creatine Kinase 51 Procalcitonin 4.66 H 02/16/22 18:06 WBC 20.17 H Neut # (Auto) 17.30 H Creatinine Est Cr Clr Drug Dosing Total Creatine Kinase Procalcitonin Micro Results: 02/16/22 18:40 Aerobic Blood Culture - Pending Blood Anaerobic Blood Culture - Pending 02/16/22 18:06 Aerobic Blood Culture - Pending Blood Anaerobic Blood Culture - Pending - Risk Factors for Resistance * Immunocompromised (asplenic) - Assessment & Plan Assessment 76 year old F admitted with sepsis, source unknown though likely either ce llulitis or PNA. Plan Vancomycin/Cefepime for treatment of sepsis Vancomycin IV * Loading dose: 2500mg (~25 mg/kg) * Maintenance dose: 1250mg IV (~12.5 mg/kg) every 18 hours * Goal trough level for sepsis : 15 to 20 mcg/mL * AUC/YAMILA is the preferred PK/PD target for vancomycin * AUC guided dosing is effective and associated with decreased risk of nephrotoxicity compared to traditional trough targets * The above dose is predicted to achieve target AUC/YAMILA of 400-600 mg/L.hr and may be associated with a 15 % risk of nephrotoxicity Pharmacy will continue to follow and will adjust dose/frequency as necessary. Thank you.
[2022-02-17] MEDS: MAGNESIUM SULFATE / D5W 1 GM/100 ML BAG IV SCH ×2 (04:14→06:23)
--- NOTE | 2022-02-17 06:34 | Ultrasound Report ---
LEFT LOWER EXTREMITY VENOUS DOPPLER HISTORY: Acute pain and swelling of the lower legs Dvt COMPARISON STUDY: None. FINDINGS: Limited exam secondary to patient body habitus. Complex hypoechoic collection within the le ft popliteal fossa measures 7.3 x 3.3 x 3.5 cm. There is normal compressibility, flow, and augmentati on within the left lower extremity deep venous system. IMPRESSION: 1. No DVT within the left lower extremity. 2. Hypoechoic 7.3 cm complex collection within the popliteal fossa favors a Chance's cyst. ACT 112: Negative or not required by law. Electronically signed by: Mitul Garcia M.D. 02/17/2022 6:32 AM
[2022-02-17 06:39] LABS: Prothrombin Time 20.9 Seconds (9.0-12.0)
[2022-02-17 06:59] LABS: Anisocytosis Present; Basophils # (auto) 0.04 K/uL (0-0.2); Basophils % (auto) 0.1 %; Eosinophils # (auto) 0.01 K/uL (0-0.5); Hematocrit (blood only) 31.3 % (37-47); Hemoglobin 9.9 g/dL (12.0-16.0); Immature Granulocytes % (auto) 0.6 %; Lymphocytes # (auto) 1.76 K/uL (1.2-3.4); Lymphocytes % (auto) 5.2 %; Mean Corpuscular Hemoglobin 28.2 pg (25-34); Mean Corpuscular Hgb Conc 31.6 g/dL (32-36); Mean Corpuscular Volume 89.2 fL (80-100); Mean Platelet Volume 8.8 fL (7.4-10.4); Monocytes # (auto) 1.52 K/uL (0.11-0.59); Monocytes % (auto) 4.5 %; Neutrophils # (auto) 30.18 K/uL (1.4-6.5); Neutrophils % (auto) 89.6 %; Platelet Count 520 K/uL (130-400); Poikilocytosis Present; Polychromasia 1+; RDW Coefficient of Variation 15.4 % (11.5-14.5); RDW Standard Deviation 49.9 fL (36.4-46.3); Red Blood Count 3.51 M/uL (4.2-5.4); White Blood Count 33.71 K/uL (4.8-10.8)
[2022-02-17 07:01] LABS: Albumin Level 3.5 gm/dl (3.4-5.0); BUN Creatinine Ratio 38.6 (10-20); Bilirubin Direct 0.3 mg/dl (0-0.2); Bilirubin,Total 0.7 mg/dl (0.2-1.0); Calcium 9.4 mg/dl (8.5-10.1); Creatinine Clr Calc Pharmacy 69.6 ml/min; Est GFR (African American) 74.5 ml/min; Est GFR (Non-African American) 64.3 ml/min; Magnesium 2.2 mg/dl (1.7-2.4); Potassium 2.9 mmol/L (3.5-5.1); Total Protein 7.1 gm/dl (6.0-8.3)
[2022-02-17] MEDS ORDERED: CEFEPIME 2,000 MG in SYRINGE 0 ML IV SCH (08:00)
[2022-02-17] MEDS: INSULIN ASPART PER UNIT SC SCH ×4 (08:20→20:02)
[2022-02-17] MEDS: ATORVASTATIN 10 MG TAB PO SCH (08:28)
[2022-02-17] MEDS: PANTOprazole 40 MG TAB PO SCH ×2 (08:29→20:04)
[2022-02-17] MEDS: BUMETANIDE 1 MG TAB PO SCH (08:29)
[2022-02-17] MEDS: METOPROLOL SUCC 50MG EXT REL TAB PO SCH ×2 (08:29→20:04)
[2022-02-17] MEDS: SUCRALFATE 1 GM TAB PO SCH ×3 (08:30→20:05)
[2022-02-17] MEDS: INSULIN GLARGINE SOLOSTAR 100 UNITS/ML 3 ML PEN SC SCH ×2 (08:33→20:02)
[2022-02-17] MEDS: POTASSIUM CHLORIDE 20 MEQ/15 ML UDC PO SCH (09:10)
--- NOTE | 2022-02-17 10:53 | Electrocardiogram Report ---
Test Reason : Blood Pressure : / mmHG Vent. Rate : 138 BPM Atrial Rate : 267 BPM P-R Int : 000 ms QRS Dur : 070 ms QT Int : 298 ms P-R-T Axes : 000 -03 -44 degrees QTc Int : 451 ms Poor data quality, interpretation may be adversely affected Atrial fibrillation with rapid ventricular response with premature ventricular or aberrantly conducte d complexes Anteroseptal infarct (cited on or before 16-FEB-2022) Abnormal ECG When compared with ECG of 14-JAN-2022 14:17, ST more depressed Lateral leads T wave inversion now evident in Inferior leads Nonspecific T wave abnormality now evident in Lateral leads Confirmed by Fernie Lentz ([id number]) on 02/17/2022 10:53:14 AM Referred By: REFERRED SELF Confirmed By:Fernie Lentz
--- NOTE | 2022-02-17 16:52 | Hospitalist Progress Note ---
Date of Service February 17, 2022 Assessment & Plan (1) Sepsis: Plan: 76yo female with multiple medical comorbidities presenting with sepsis syndrome - fever of 39.3, tachycardia, WBC=20.17 with neutrophil predominance. Patient's blood pressure is stable. Lactate is normal at 1.1. -Sepsis most likely secondary to left lower extremity cellulitis, the left lower extremity is tender, patient has a chronic stasis in the left lower extremity Gram-positive cocci growing in both blood cultures For now continue cefazolin vancomycin we will narrow down antibiotic treatment as is the cultures of become more specific Patient has leukemoid reaction most likely because patient is asplenic Patient feels significantly better than yesterday (2) Hx of aortic valve replacement, mechanical: Plan: Patient with mechanical aortic and mitral valves in place. INR is subtherapeutic Start on full dose Lovenox INR of 2 (3) Permanent atrial fibrillation: Plan: RVR on arrival. Improved with administration of Metoprolol 5mg IV in the ER -Continue Metoprolol 50mg po BID -Continue Coumadin as above -I -Telemetry montior (4) Lower extremity edema: Plan: Patient reports LE edema -Continue Bumex 4mg po daily -Continue daily potassium supplemetation -Monitor daily weights -Monitor I/Os -Check BNP -Patient is hypokalemic replace potassium check BMP tomorrow (5) Anastomotic ulcer: Plan: Patient with recent hospitalization in [facility] for GIB from anastomotic ulcers. She was started on Protonix and Carafate. No additional bleeding noted. Hgb=11 (reportedly 7 at OSH - no transfusion given) -Continue Protonix 40mg po BID -Continue Sucralfate (6) Hypomagnesemia: Plan: Hypomagnesemia, replace magnesium Repeat level magnesium (7) Hyperlipidemia: Plan: Chronic. -Continue Atorvastatin (8) Diabetes: Plan: Diet controlled. Blood [id number]. -Lantus 5BID -ISS Admission and Anticipated Discharge Date Admission Date: February 16, 2022 Subjective No complaint today feels significantly better Review of Systems Review of Systems: General: No malaise no weakness Neck: No tenderness no pain HEENT: No eye discharge no ear discharge Chest: No chest pain, no palpitation GI: Not distended, no nausea no vomiting Extremities: No edema no tenderness Neurology: No headache no weakness Psychiatric: No depression no anxiety Physical Exam Physical Exam: General: patient resting comfortably, NAD, non-toxic in appearance, AA&O x 4 Skin: warm, dry, ulcer on left 5th digit with eschar, no erythema/edema or purulence HEENT: NC/AT, PERRL, EOMI, anicteric sclera, conjunctiva without injection, external ear normal to inspection and nontender, nares patent, moist mucus me mbranes, dentition intact, no oropharyngeal lesions, neck supple, trachea midline, no LAD, no thyromegaly, no JVD Heart: +S1/S2, irregularly irregular, tachycardic, systolic mechanical click present across precordium Lungs: equal air entry bilaterally, no rales/rhonchi/wheezes Abd: +BS, soft, mild tenderness with deep palpation, no rebound/guarding/peritoneal signs, no masses/organomegaly/ascites Ext: warm, 2+ pulses in UE/LE bilaterally, 2+ edema of bilateral LE, warmth and redness present at ankles, tenderness with palpation of left posterior calf with some swelling. No crepitus/bullae/lymphangitic streaking, ulcer at left 5th digit with eschar, no obvious infection Neuro: nonfocal, patient AA&O x 4, speech intact, no facial droop, moving all extremities on command with equal strength 5/5 Results & Data Results & Data ([facility]) Vital Signs (Past 12 Hours) Vital Signs Temp Pulse Pulse Resp BP Pulse Ox 02/17/22 15:02 36.9 C 89 20 112/72 97 02/17/22 15:00 95 H 02/17/22 11:32 36.8 C 107 H 20 117/73 97 02/17/22 08:21 36.8 C 94 H 20 133/75 96 02/17/22 07:43 95 H PG Care Time/CCT Total # of Minutes Spent Total Time Spent with Patient: Total time spent is greater than 50% in coordination of care (as documented) at patient's floor/unit and/or counseling patient: Coding Level of Care Code 10699 Subseq Hosp Care Lvl 3 Diagnoses Sepsis A41.9 Hx of aortic valve replacement, mechanical Z95.2 Permanent atrial fibrillation I48.21 Lower extremity edema R60.0 Anastomotic ulcer K28.9 Hypomagnesemia E83.42 Hyperlipidemia E78.5 Diabetes E11.9
[2022-02-17] MEDS: ENOXAPARIN 100 MG/1ML SYR SC SCH (17:41)
[2022-02-17] MEDS: CEFEPIME 2,000 MG in SYRINGE 0 ML IV SCH (17:43)
[2022-02-17] MEDS: WARFARIN SOD 2.5 MG TAB PO SCH (17:43)
[2022-02-17] MEDS ORDERED: VANCOMYCIN HCL 1,250 MG in SODIUM CHLORIDE 0.9% 250 ML IV SCH (18:00)
[2022-02-18] MEDS ORDERED: diphenhydrAMINE 50 MG/ML VIAL IV STA (01:34)
[2022-02-18] MEDS: CEFEPIME 2,000 MG in SYRINGE 0 ML IV SCH ×2 (01:49→07:42)
[2022-02-18] MEDS: ENOXAPARIN 100 MG/1ML SYR SC SCH ×2 (05:13→15:21)
[2022-02-18 06:38] LABS: INR 1.9 (0.9-1.1); Prothrombin Time 19.2 Seconds (9.0-12.0)
[2022-02-18 06:45] LABS: Hematocrit (blood only) 28.4 % (37-47); Hemoglobin 9.2 g/dL (12.0-16.0); Mean Corpuscular Hemoglobin 28.6 pg (25-34); Mean Corpuscular Hgb Conc 32.4 g/dL (32-36); Mean Corpuscular Volume 88.2 fL (80-100); Mean Platelet Volume 8.8 fL (7.4-10.4); Platelet Count 472 K/uL (130-400); RDW Coefficient of Variation 15.3 % (11.5-14.5); RDW Standard Deviation 49.6 fL (36.4-46.3); Red Blood Count 3.22 M/uL (4.2-5.4); White Blood Count 15.05 K/uL (4.8-10.8)
[2022-02-18 06:54] LABS: BUN Creatinine Ratio 39.2 (10-20); Calcium 8.8 mg/dl (8.5-10.1); Creatinine Clr Calc Pharmacy 63.4 ml/min; Est GFR (African American) 66.2 ml/min; Est GFR (Non-African American) 57.1 ml/min; Potassium 2.7 mmol/L (3.5-5.1)
[2022-02-18] MEDS: INSULIN ASPART PER UNIT SC SCH ×4 (07:31→20:51)
[2022-02-18] MEDS: METOPROLOL SUCC 50MG EXT REL TAB PO SCH ×2 (07:32→20:53)
[2022-02-18] MEDS: BUMETANIDE 1 MG TAB PO SCH (07:32)
[2022-02-18] MEDS: PANTOprazole 40 MG TAB PO SCH ×2 (07:33→20:53)
[2022-02-18] MEDS: SUCRALFATE 1 GM TAB PO SCH ×3 (07:33→20:54)
[2022-02-18] MEDS: ATORVASTATIN 10 MG TAB PO SCH (07:33)
[2022-02-18] MEDS: INSULIN GLARGINE SOLOSTAR 100 UNITS/ML 3 ML PEN SC SCH ×2 (07:35→20:52)
[2022-02-18] MEDS: POTASSIUM CHLORIDE 20 MEQ/15 ML UDC PO SCH (07:35)
--- NOTE | 2022-02-18 11:46 | Emergency Department Note ---
Impression & Plan Bilateral pneumonia, Fever, Atrial fibrillation with RVR ED Provider Note CHIEF COMPLAINT: Shortness of breath HISTORY OF PRESENT ILLNESS: This 76-year-old female patient presents to the emergency department complaints of shortness of breath and bilateral lower extremity swelling. The patient states she is status post gastric bypass and has a history of diabetes, mechanical aortic valve replacement, congestive heart failure and atrial fibrillation. Patient states she did take her Lasix this morning although she is feeling no significant relief. She denies any fevers, chills, chest pain but does admit to some exertional shortness of breath. Patient denies any vomiting or diarrhea. REVIEW OF SYSTEMS: A review of systems was performed with positives and pertinent negatives listed in the history of present illness. 10 systems were reviewed and are otherwise negative. ALLERGIES: see below MEDICATIONS: see below PMH: see below SOCIAL HISTORY: see below DDx: Reactive airway disease, pneumonia, pneumothorax, COPD, CHF, infections, cardiac ischemia, pulmonary embolism, musculoskeletal, gastrointestinal, as well as other pathologies. PHYSICAL EXAM: Vital signs reviewed. General: Chronically ill-appearing, obese 76-year-old female, in no significant distress. HEENT: No scleral icterus, PERRLA, neck supple. Atraumatic. Cardiovascular: Regular rate and rhythm, no extra sounds. Pulmonary: Distant breath sounds bilaterally, slightly increased work of breathing. on RA Abdomen: Soft, nontender, nondistended, positive bowel sounds. Musculoskeletal: Atraumatic, significant lymphedema/obesity peripheral BLE. Neurologic: Patient awake alert and oriented x 3, speech is clear Skin: Warm, dry, no rash EMERGENCY DEPARTMENT COURSE/MDM: This patient was evaluated and appeared to be in no significant distress. IV access was obtained and laboratory work was drawn. Patient was medicated with IV Tylenol and hydrated with normal saline solution. Blood cultures were drawn and the patient was noted to have bilateral pulmonary infiltrates on chest x-ray. She was given IV cefepime for broad- spectrum coverage. Patient's Covid swab is negative. Patient was also noted to be in rapid atrial fibrillation was given 5 mg of IV metoprolol. She did not require supplemental oxygen during her stay in the ED. Her troponin is negative with a normal lactate of 1.1 but WBC is elevated at 20,000. Patient was informed of the findings and plan, she agreed. She was referred to the [facility] hospitalist service for admission and further management. MONITORING: An order for cardiac monitoring was placed and the patient is noted to be in a rapid atrial fibrillation at 137 beats per minute. RADIOLOGY: See below EKG: Rapid atrial fibrillation at 138 bpm. Poor quality baseline for interpretation. Previous anterior septal infarct with Q waves noted. DISPOSITION: admit I have personally spent 40 minutes of critical care time in the direct management of this patient. This was a life/limb threatening event. This 40 minutes is in excess of all separately billable procedures. Past Med/Surg History Medical History Abnormal CT scan, chest Acute blood loss anemia Anastomotic ulcer S/P gastric bypass ASCVD (arteriosclerotic cardiovascular disease) Carotid stenosis, asymptomatic left Carpal tunnel syndrome Cervical radiculopathy Chronic diastolic (congestive) heart failure Diabetic peripheral neuropathy associated with type 2 diabetes mellitus Elevated alkaline phosphatase level Esophageal candidiasis Eustachian tube dysfunction Hearing loss HTN (hypertension) Hyperlipidemia Hypertension [facility] (current) use 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 Mitral regurgitation Nontoxic multinodular goiter Obesity Obstructive sleep apnea Osteoporosis Pericardial effusion Permanent atrial fibrillation Personal history of diabetic foot ulcer Spinal stenosis, lumbar region with neurogenic claudication 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 Vitamin B12 deficiency Vitamin D deficiency Surgical History H/O gastric bypass H/O hernia repair H/O splenectomy H/O splenectomy History of esophagogastroduodenoscopy (EGD) History of knee replacement bilateral History of total abdominal hysterectomy many years ago, fibroids, bleeding Hx of appendectomy Hx of cholecystectomy Hx of tonsillectomy S/P gastric bypass S/P pericardial window creation (2011) Status post panniculectomy Family History Mother Congestive heart failure Diabetes Hypertension Cardiac disorder Brother Diabetes Polycythemia Pharyngeal neoplasm Pulmonary embolism Father Lung cancer Acute myocardial infarction Hypertension Cardiac disorder Myocardial infarction Denies family history of Ovarian cancer Prostate cancer Crohn's disease Breast cancer Colorectal cancer Social History Smoking Status: Never smoker Second Hand Exposure: No; Hx Alcohol Use: Yes Alcohol type: other Alcohol type Comment: occassional mixed drink Hx Substance Use: No Preferred Language: Polish Communication Ability: Effective Visual Impairment: No Limitations Hearing Ability: Normal Printing Assistant Required: No Beliefs That Will Affect Care: None marital status: Current Living Situation: Spouse current occupational status: retired How many Children do You have: 1 Feels Safe at Home: Yes Childhood Exposure to Second-Hand Smoke: No Diet Comment: pt watches diet intake s/p gastric bypass surgery caffeine: Yes during the past year weight has: remained stable Dental Care, Regularly: Yes Physical Activity Frequency: 3-4 Times per Week Seatbelt Use: always Sunscreen Use: Yes Assistive Devices: None Allergies Allergies Allergy/AdvReac Type Severity Reaction Status Date / Time iron [From Venofer] Allergy Severe VENOFER Verified 02/16/22 22:03 INFUSION-RASH,WEAKNESS,BLEEDING-HOSPITALIZED iron dextran complex Allergy Severe RASH Verified 02/16/22 22:03 choline salicylate Allergy Intermediate TRILISATE-r Verified 02/16/22 22:03 nay magnesium salicylate Allergy Intermediate TRILISATE-r Verified 02/16/22 22:03 nay mometasone furoate Allergy Unknown Pt has no Verified 02/16/22 22:03 recollection of this Home Meds Home Medications Medication Instructions Recorded Confirmed multivitamin 1 tab PO QAM 05/06/20 02/16/22 acetaminophen 500 mg capsule 1,000 mg PO DAILY PRN cap 03/04/21 02/16/22 pantoprazole 40 mg tablet,delayed 40 mg PO BID tab 04/22/21 02/16/22 release polyethylene glycol 3350 17 17 g PO DAILY PRN 02/10/22 02/16/22 gram/dose oral powder (Miralax) bumetanide 1 mg tablet 4 mg PO QAM 02/16/22 02/16/22 potassium chloride 20 mEq/15 mL See Rx Instructions .ROUTE .COMPLEX 02/16/22 02/16/22 oral liquid sucralfate 1 gram tablet 1 g PO TID 02/16/22 02/16/22 Previous Rx's Medication Instructions Recorded metoprolol succinate 50 mg 50 mg PO BID #180 tab 04/08/21 tablet,extended release 24 hr warfarin 5 mg tablet 5 mg PO .COMPLEX #120 tab 04/15/21 metolazone 5 mg tablet 5 mg PO DIRECTED #30 tab 08/11/21 BD Eclipse 25 gauge x 1" needle #3 ea NS 08/14/21 (safety needles) cyanocobalamin (vitamin B-12) 1,000 mcg IM Q4WK #3 ml 08/15/21 1,000 mcg/mL injection solution atorvastatin 10 mg tablet 10 mg PO QAM #90 tab 11/07/21 oxycodone-acetaminophen 5 mg-325 1 tab PO Q6H PRN #14 tab 12/05/21 mg tablet (Percocet) tramadol 50 mg tablet 50 mg PO TID PRN #90 tab 01/02/22 ampicillin sodium 125 mg solution 12,000 mg IV Q4H 12 Days #1 ea 02/20/22 for injection Results & Data (ED) Home Medications Current Medication List: was personally reviewed by me Laboratory Data Attestation: I reviewed the patient's lab results. Result diagrams: 02/20/22 06:06 02/20/22 06:06 Lab Results 02/16/22 02/16/22 02/16/22 Range/Units 17:50 18:06 18:06 WBC 20.17 H (4.8-10.8) K/uL RBC 3.79 L (4.2-5.4) M/uL Hgb 11.0 L (12.0-16.0) g/dL Hct 34.0 L (37-47) % MCV 89.7 (80-100) fL MCH 29.0 (25-34) pg MCHC 32.4 (32-36) g/dL RDW Std Deviation 51.1 H (36.4-46.3) fL RDW Coeff of Donald 15.5 H (11.5-14.5) % Plt Count 598 H (130-400) K/uL MPV 9.0 (7.4-10.4) fL Immature Gran % (Auto) 0.3 % Neut % (Auto) 85.7 % Lymph % (Auto) 5.0 % [place] % (Auto) 4.2 % Eos % (Auto) 4.5 % Baso % (Auto) 0.3 % Neut # (Auto) 17.30 H (1.4-6.5) K/uL Lymph # (Auto) 1.00 L (1.2-3.4) K/uL [place] # (Auto) 0.84 H (0.11-0.59) K/uL Eos # (Auto) 0.91 H (0-0.5) K/uL Baso # (Auto) 0.06 (0-0.2) K/uL Immature Gran # (Auto) 0.06 H (0.00-0.02) K/uL PT 24.0 H (9.0-12.0) Seconds INR 2.4 H (0.9-1.1) APTT 37.9 H (21.0-31.0) Seconds PTT Ratio 1.4 Sodium (136-145) mmol/L Potassium (3.5-5.1) mmol/L Chloride (98-107) mmol/L Carbon Dioxide (21-32) mmol/L Anion Gap (3-11) BUN (6-23) mg/dl Creatinine (0.6-1.2) mg/dl Est Cr Clr Drug Dosing ml/min Est GFR ( Amer) ml/min Est GFR (Non-Af Amer) ml/min BUN/Creatinine Ratio (10-20) Glucose (70-99(Fasting)) mg/dl Lactate (0.4-2.0) mmol/L Calcium (8.5-10.1) mg/dl Magnesium (1.7-2.4) mg/dl Total Bilirubin (0.2-1.0) mg/dl AST (13-39) U/L ALT (7-52) U/L Alkaline Phosphatase (34-104) U/L Troponin I (0-0.04) ng/ml Total Protein (6.0-8.3) gm/dl Albumin (3.4-5.0) gm/dl Globulin (2.5-4.0) gm/dl Albumin/Globulin Ratio (0.9-2) Urine Color Yellow Urine Appearance Clear (Clear) Urine pH 5.0 (4.5-7.5) Ur Specific [place] 1.007 (1.000-1.030) Urine Protein Negative (Negative) Urine Glucose (UA) Negative (Negative) Urine Ketones Negative (Negative) Urine Blood Negative (Negative) Urine Nitrite Negative (Negative) Urine Bilirubin Negative (Negative) Urine Urobilinogen Negative (Negative) Ur Leukocyte Esterase Negative (Negative) SARS-CoV-2 (PCR) (Negative) Influenza Type A (PCR) (Neg) Influenza Type B (PCR) (Neg) RSV (RT-PCR) (Neg) 02/16/22 02/16/22 02/16/22 Range/Units 18:06 18:39 19:40 WBC (4.8-10.8) K/uL RBC (4.2-5.4) M/uL Hgb (12.0-16.0) g/dL Hct (37-47) % MCV (80-100) fL MCH (25-34) pg MCHC (32-36) g/dL RDW Std Deviation (36.4-46.3) fL RDW Coeff of Donald (11.5-14.5) % Plt Count (130-400) K/uL MPV (7.4-10.4) fL Immature Gran % (Auto) % Neut % (Auto) % Lymph % (Auto) % [place] % (Auto) % Eos % (Auto) % Baso % (Auto) % Neut # (Auto) (1.4-6.5) K/uL Lymph # (Auto) (1.2-3.4) K/uL [place] # (Auto) (0.11-0.59) K/uL Eos # (Auto) (0-0.5) K/uL Baso # (Auto) (0-0.2) K/uL Immature Gran # (Auto) (0.00-0.02) K/uL PT (9.0-12.0) Seconds INR (0.9-1.1) APTT (21.0-31.0) Seconds PTT Ratio Sodium 136 (136-145) mmol/L Potassium 3.9 (3.5-5.1) mmol/L Chloride 103 (98-107) mmol/L Carbon Dioxide 22 (21-32) mmol/L Anion Gap 11 (3-11) BUN 37 H (6-23) mg/dl Creatinine 1.11 (0.6-1.2) mg/dl Est Cr Clr Drug Dosing 57.8 ml/min Est GFR ( Amer) 56.3 ml/min Est GFR (Non-Af Amer) 48.5 ml/min BUN/Creatinine Ratio 33.3 H (10-20) Glucose 145 H (70-99(Fasting)) mg/dl Lactate 1.1 (0.4-2.0) mmol/L Calcium 10.1 (8.5-10.1) mg/dl Magnesium 1.4 L (1.7-2.4) mg/dl Total Bilirubin 0.7 (0.2-1.0) mg/dl AST 34 (13-39) U/L ALT 20 (7-52) U/L Alkaline Phosphatase 158 H (34-104) U/L Troponin I 0.03 (0-0.04) ng/ml Total Protein 8.4 H (6.0-8.3) gm/dl Albumin 4.2 (3.4-5.0) gm/dl Globulin 4.2 H (2.5-4.0) gm/dl Albumin/Globulin Ratio 1.0 (0.9-2) Urine Color Urine Appearance (Clear) Urine pH (4.5-7.5) Ur Specific [place] (1.000-1.030) Urine Protein (Negative) Urine Glucose (UA) (Negative) Urine Ketones (Negative) Urine Blood (Negative) Urine Nitrite (Negative) Urine Bilirubin (Negative) Urine Urobilinogen (Negative) Ur Leukocyte Esterase (Negative) SARS-CoV-2 (PCR) NEGATIVE (Negative) Influenza Type A (PCR) Negative (Neg) Influenza Type B (PCR) Negative (Neg) RSV (RT-PCR) Negative (Neg) Administered Medications Discontinued Medications Acetaminophen (Acetaminophen 325 Mg Tab) 650 mg PO Q4H PRN PRN Reason: pain/fever Stop: 03/18/22 23:48 Last Admin: 02/20/22 01:47 Dose: 650 mg Documented by: [id number] Admin: 02/19/22 01:15 Dose: 650 mg Documented by: [id number] Atorvastatin Calcium (Atorvastatin 10 Mg Tab) 10 mg PO [facility] Stop: 03/19/22 08:59 Last Admin: 02/20/22 08:18 Dose: 10 mg Documented by: [id number] Admin: 02/19/22 08:25 Dose: 10 mg Documented by: [id number] Admin: 02/18/22 07:33 Dose: 10 mg Documented by: [id number] Admin: 02/17/22 08:28 Dose: 10 mg Documented by: [id number] Bumetanide (Bumetanide 1 Mg Tab) 4 mg PO [facility] Stop: 03/19/22 08:59 Last Admin: 02/19/22 08:26 Dose: 4 mg Documented by: [id number] Admin: 02/18/22 07:32 Dose: 4 mg Documented by: [id number] Admin: 02/17/22 08:29 Dose: 4 mg Documented by: [id number] Diphenhydramine HCl (Diphenhydramine 50 Mg/Ml Vial) 12.5 mg IV NOW STA Stop: 02/18/22 01:35 Last Admin: 02/18/22 01:49 Dose: 12.5 mg Documented by: [id number] Diphenhydramine HCl (Diphenhydramine Capsule 25 Mg Cap) 25 mg PO NOW ONE Stop: 02/18/22 14:34 Last Admin: 02/18/22 15:11 Dose: 25 mg Documented by: [id number] Diphenhydramine HCl (Diphenhydramine Capsule 25 Mg Cap) 25 mg PO NOW ONE Stop: 02/19/22 20:16 Last Admin: 02/19/22 20:51 Dose: 25 mg Documented by: [id number] Enoxaparin Sodium (Enoxaparin 100 Mg/1ml Syr) 100 mg SC Q12H [facility] Stop: 03/19/22 16:59 Last Admin: 02/20/22 04:55 Dose: Not Given Documented by: [id number] Admin: 02/19/22 17:14 Dose: Not Given Documented by: [id number] Admin: 02/19/22 05:35 Dose: Not Given Documented by: [id number] Admin: 02/18/22 15:21 Dose: Not Given Documented by: [id number] Admin: 02/18/22 05:13 Dose: Not Given Documented by: [id number] Admin: 02/17/22 17:41 Dose: Not Given Documented by: [id number] Sodium Chloride (Nss 1000ml) 500 mls @ 999 mls/hr IV .Q31M ONE Stop: 02/16/22 18:55 Last Infusion: 02/16/22 19:35 Dose: 0 mls/hr Documented by: [id number] Admin: 02/16/22 18:54 Dose: 999 mls/hr Documented by: [id number] Sodium Chloride (Nss 1000ml) 1,000 mls @ 125 mls/hr IV .Q8H MARCI Stop: 03/18/22 18:29 Last Infusion: 02/17/22 01:25 Dose: 0 mls/hr Documented by: [id number] Admin: 02/16/22 19:40 Dose: 125 mls/hr Documented by: [id number] Acetaminophen (Ofirmev) 1,000 mg in 100 mls @ 400 mls/hr IV NOW STA Stop: 02/16/22 18:41 Last Infusion: 02/16/22 19:25 Dose: 0 mls/hr Documented by: [id number] Admin: 02/16/22 18:54 Dose: 400 mls/hr Documented by: [id number] Cefepime HCl (Maxipime) 2,000 mg in 20 mls @ 5 mls/min IV NOW STA; Protocol Stop: 02/16/22 18:31 Last Admin: 02/16/22 18:55 Dose: 5 mls/min Documented by: [id number] Magnesium Sulfate/Dextrose (Magnesium Sulfate / D5w) 1 gm in 100 mls @ 100 mls/hr IV Q1H [facility]CI Stop: 02/16/22 21:15 Last Infusion: 02/16/22 22:45 Dose: 0 mls/hr Documented by: [id number] Admin: 02/16/22 21:17 Dose: 100 mls/hr Documented by: [id number] Infusion: 02/16/22 20:59 Dose: 0 mls/hr Documented by: [id number] Admin: 02/16/22 19:34 Dose: 100 mls/hr Documented by: [id number] Cefepime HCl 2,000 mg/ Syringe 20 mls @ 5 mls/min IV Q12H COUNTS INCLUDE 234 BEDS AT THE [facility]; Protocol Stop: 02/19/22 07:59 Last Admin: 02/17/22 09:50 Dose: 5 mls/min Documented by: [id number] Vancomycin HCl 2,500 mg/ (Sodium Chloride) 550 mls @ 180 mls/hr IV 0100 MARCI Stop: 02/17/22 04:04 Last Infusion: 02/17/22 04:17 Dose: 0 mls/hr Documented by: [id number] Admin: 02/17/22 01:06 Dose: 180 mls/hr Documented by: [id number] Vancomycin HCl 1,250 mg/ (Sodium Chloride) 275 mls @ 200 mls/hr IV Q18H COUNTS INCLUDE 234 BEDS AT THE [facility] Stop: 02/24/22 17:59 Last Infusion: 02/17/22 20:06 Dose: 0 mls/hr Documented by: [id number] Admin: 02/17/22 17:43 Dose: 200 mls/hr Documented by: [id number] Magnesium Sulfate/Dextrose (Magnesium Sulfate / D5w) 1 gm in 100 mls @ 50 mls/hr IV Q2H MARCI Stop: 02/17/22 07:59 Last Infusion: 02/17/22 09:10 Dose: 0 mls/hr Documented by: [id number] Admin: 02/17/22 06:23 Dose: 50 mls/hr Documented by: [id number] Infusion: 02/17/22 06:14 Dose: 50 mls/hr Documented by: [id number] Admin: 02/17/22 04:14 Dose: 50 mls/hr Documented by: [id number] Cefepime HCl 2,000 mg/ Syringe 20 mls @ 5 mls/min IV Q8H MARCI; Protocol Stop: 02/19/22 07:59 Last Admin: 02/18/22 07:42 Dose: 5 mls/min Documented by: [id number] Admin: 02/18/22 01:49 Dose: 5 mls/min Documented by: [id number] Admin: 02/17/22 17:43 Dose: 5 mls/min Documented by: [id number] Ampicillin Sodium 2,000 mg/ (Sodium Chloride) 100 mls @ 200 mls/hr IV Q4H [facility]CI; Protocol Stop: 02/26/22 14:29 Last Infusion: 02/20/22 10:50 Dose: 0 mls/hr Documented by: [id number] Admin: 02/20/22 10:07 Dose: 200 mls/hr Documented by: [id number] Infusion: 02/20/22 08:38 Dose: 0 mls/hr Documented by: [id number] Infusion: 02/20/22 08:21 Dose: 200 mls/hr Documented by: [id number] Infusion: 02/20/22 06:14 Dose: 0 mls/hr Documented by: [id number] Admin: 02/20/22 05:54 Dose: 200 mls/hr Documented by: [id number] Infusion: 02/20/22 02:25 Dose: 0 mls/hr Documented by: [id number] Admin: 02/20/22 01:42 Dose: 200 mls/hr Documented by: [id number] Infusion: 02/19/22 22:12 Dose: 0 mls/hr Documented by: [id number] Admin: 02/19/22 21:05 Dose: 200 mls/hr Documented by: [id number] Infusion: 02/19/22 19:47 Dose: 0 mls/hr Documented by: [id number] Admin: 02/19/22 18:14 Dose: 200 mls/hr Documented by: [id number] Infusion: 02/19/22 15:58 Dose: 0 mls/hr Documented by: [id number] Admin: 02/19/22 15:28 Dose: 200 mls/hr Documented by: [id number] Infusion: 02/19/22 10:22 Dose: 0 mls/hr Documented by: [id number] Admin: 02/19/22 09:52 Dose: 200 mls/hr Documented by: [id number] Infusion: 02/19/22 06:10 Dose: 0 mls/hr Documented by: [id number] Admin: 02/19/22 05:35 Dose: 200 mls/hr Documented by: [id number] Infusion: 02/19/22 01:29 Dose: 0 mls/hr Documented by: [id number] Admin: 02/19/22 00:59 Dose: 200 mls/hr Documented by: [id number] Infusion: 02/18/22 22:02 Dose: 0 mls/hr Documented by: [id number] Admin: 02/18/22 20:54 Dose: 200 mls/hr Documented by: [id number] Infusion: 02/18/22 16:20 Dose: 0 mls/hr Documented by: [id number] Admin: 02/18/22 15:40 Dose: 200 mls/hr Documented by: [id number] Insulin Aspart (Insulin Aspart Per Unit) 0 units SC ACHS [facility]CI Stop: 03/19/22 07:29 Last Admin: 02/20/22 11:15 Dose: Not Given Documented by: [id number] Admin: 02/20/22 08:17 Dose: Not Given Documented by: [id number] Admin: 02/19/22 20:51 Dose: Not Given Documented by: [id number] Cosigned by: [id number] Admin: 02/19/22 17:14 Dose: Not Given Documented by: [id number] Admin: 02/19/22 12:01 Dose: Not Given Documented by: [id number] Admin: 02/19/22 08:11 Dose: Not Given Documented by: [id number] Cosigned by: [id number] Admin: 02/18/22 20:51 Dose: Not Given Documented by: [id number] Cosigned by: [id number] Admin: 02/18/22 15:22 Dose: Not Given Documented by: [id number] Admin: 02/18/22 11:24 Dose: Not Given Documented by: [id number] Admin: 02/18/22 07:31 Dose: Not Given Documented by: [id number] Admin: 02/17/22 20:02 Dose: Not Given Documented by: [id number] Admin: 02/17/22 17:15 Dose: Not Given Documented by: [id number] Cosigned by: [id number] Admin: 02/17/22 12:27 Dose: Not Given Documented by: [id number] Cosigned by: [id number] Admin: 02/17/22 08:20 Dose: Not Given Documented by: [id number] Cosigned by: [id number] Insulin Glargine (Insulin Glargine Solostar 100 Units/Ml 3 Ml Pen) 5 units SC BID MARCI Stop: 03/19/22 08:59 Last Admin: 02/20/22 08:18 Dose: Not Given Documented by: [id number] Admin: 02/19/22 20:52 Dose: Not Given Documented by: [id number] Admin: 02/19/22 09:27 Dose: Not Given Documented by: [id number] Admin: 02/18/22 20:52 Dose: Not Given Documented by: [id number] Admin: 02/18/22 07:35 Dose: Not Given Documented by: [id number] Admin: 02/17/22 20:02 Dose: Not Given Documented by: [id number] Admin: 02/17/22 08:33 Dose: Not Given Documented by: [id number] Ioversol (Optiray 320 100ml) 94 ml IV ONCE ONE Stop: 02/16/22 19:18 Last Admin: 02/16/22 19:17 Dose: 94 ml Documented by: [id number] Metoprolol Succinate (Metoprolol Succ 50mg Ext Rel Tab) 50 mg PO NOW STA Stop: 02/16/22 22:28 Last Admin: 02/17/22 01:24 Dose: Not Given Documented by: [id number] Metoprolol Succinate (Metoprolol Succ 50mg Ext Rel Tab) 50 mg PO BID MARCI Stop: 03/19/22 08:59 Last Admin: 02/20/22 08:18 Dose: 50 mg Documented by: [id number] Admin: 02/19/22 20:53 Dose: 50 mg Documented by: [id number] Admin: 02/19/22 08:26 Dose: 50 mg Documented by: [id number] Admin: 02/18/22 20:53 Dose: 50 mg Documented by: [id number] Admin: 02/18/22 07:32 Dose: 50 mg Documented by: [id number] Admin: 02/17/22 20:04 Dose: 50 mg Documented by: [id number] Admin: 02/17/22 08:29 Dose: 50 mg Documented by: [id number] Metoprolol Tartrate (Metoprolol Tartrate 1 Mg/Ml Vial) 5 mg IV NOW STA; Protocol Stop: 02/16/22 21:44 Last Admin: 02/16/22 22:01 Dose: 5 mg Documented by: [id number] Pantoprazole Sodium (Pantoprazole 40 Mg Tab) 40 mg PO NOW STA Stop: 02/16/22 22:28 Last Admin: 02/17/22 01:24 Dose: Not Given Documented by: [id number] Pantoprazole Sodium (Pantoprazole 40 Mg Tab) 40 mg PO BID AMRCI Stop: 03/19/22 08:59 Last Admin: 02/20/22 08:18 Dose: 40 mg Documented by: [id number] Admin: 02/19/22 20:53 Dose: 40 mg Documented by: [id number] Admin: 02/19/22 08:26 Dose: 40 mg Documented by: [id number] Admin: 02/18/22 20:53 Dose: 40 mg Documented by: [id number] Admin: 02/18/22 07:33 Dose: 40 mg Documented by: [id number] Admin: 02/17/22 20:04 Dose: 40 mg Documented by: [id number] Admin: 02/17/22 08:29 Dose: 40 mg Documented by: [id number] Potassium Chloride (Potassium Chloride 20 Meq/15 Ml Udc) 100 meq PO DAILY [facility]CI Stop: 03/19/22 08:59 Last Admin: 02/19/22 08:27 Dose: 100 meq Documented by: [id number] Admin: 02/18/22 07:35 Dose: 100 meq Documented by: [id number] Admin: 02/17/22 09:10 Dose: 100 meq Documented by: [id number] Potassium Chloride (Potassium Chloride 20 Meq/15 Ml Udc) 40 meq PO NOW STA Stop: 02/18/22 13:48 Last Admin: 02/18/22 15:10 Dose: 40 meq Documented by: [id number] Potassium Chloride (Potassium Chloride 20 Meq/15 Ml Udc) 40 meq PO ONE ONE Stop: 02/19/22 12:01 Last Admin: 02/19/22 12:19 Dose: 40 meq Documented by: [id number] Potassium Chloride (Potassium Chloride 20 Meq/15 Ml Udc) 120 meq PO DAILY COUNTS INCLUDE 234 BEDS AT THE [facility] Stop: 03/22/22 08:59 Last Admin: 02/20/22 08:19 Dose: 120 meq Documented by: [id number] Sucralfate (Sucralfate 1 Gm/10 Ml Udc) 1 gm PO NOW STA Stop: 02/16/22 22:28 Last Admin: 02/17/22 01:24 Dose: Not Given Documented by: [id number] Sucralfate (Sucralfate 1 Gm Tab) 1 gm PO TID COUNTS INCLUDE 234 BEDS AT THE [facility] Stop: 03/19/22 08:59 Last Admin: 02/20/22 08:19 Dose: 1 gm Documented by: [id number] Admin: 02/19/22 20:52 Dose: 1 gm Documented by: [id number] Admin: 02/19/22 15:33 Dose: 1 gm Documented by: [id number] Admin: 02/19/22 08:25 Dose: 1 gm Documented by: [id number] Admin: 02/18/22 20:54 Dose: 1 gm Documented by: [id number] Admin: 02/18/22 11:24 Dose: 1 gm Documented by: [id number] Admin: 02/18/22 07:33 Dose: 1 gm Documented by: [id number] Admin: 02/17/22 20:05 Dose: 1 gm Documented by: [id number] Admin: 02/17/22 13:25 Dose: 1 gm Documented by: [id number] Admin: 02/17/22 08:30 Dose: 1 gm Documented by: [id number] Warfarin Sodium (Warfarin Sod 5 Mg Tab) 5 mg PO NOW ONE Stop: 02/16/22 22:28 Last Admin: 02/17/22 01:24 Dose: Not Given Documented by: [id number] Warfarin Sodium (Warfarin Sod 5 Mg Tab) 5 mg PO MoFr@1600 COUNTS INCLUDE 234 BEDS AT [facility] Stop: 03/22/22 15:59 Last Admin: 02/18/22 07:33 Dose: 5 mg Documented by: [id number] Warfarin Sodium (Warfarin Sod 2.5 Mg Tab) 2.5 mg PO SuTuWeThSa@1600 COUNTS INCLUDE 234 BEDS AT THE [facility] Stop: 03/19/22 15:59 Last Admin: 02/19/22 17:12 Dose: 2.5 mg Documented by: [id number] Admin: 02/18/22 16:23 Dose: 2.5 mg Documented by: [id number] Admin: 02/17/22 17:43 Dose: 2.5 mg Documented by: [id number] Warfarin Sodium (Warfarin Sod 2.5 Mg Tab) 2.5 mg PO DAILY@1600 [facility] Stop: 03/20/22 15:59 Last Admin: 02/19/22 17:13 Dose: 2.5 mg Documented by: [id number] Admin: 02/18/22 16:23 Dose: 2.5 mg Documented by: [id number] Imaging Data Radiologist's Impression: Chest X-Ray 02/16/22 17:41 SINGLE VIEW CHEST CLINICAL HISTORY: Dyspnea. FINDINGS: An AP, portable, upright chest radiograph is compared to chest x-ray and chest CT dated 01/14/2022. The patient is status post midline sternotomy and cardiac valve surgery. The heart is enlarged noting atherosclerotic calcification of the thoracic aorta. There is pulmonary vascular congestion. Bilateral airspace opacities are observed. There is bibasilar scarring/atelectasis. No large pleural effusion or pneumothorax is seen. The skeletal structures are osteopenic. The bony thorax is grossly intact. Advanced arthritic change is noted in the right shoulder. Cholecystectomy clips are noted in the right upper quadrant. IMPRESSION: 1. Cardiomegaly with evidence of congestive failure. 2. Bilateral airspace opacities likely represent mild pulmonary edema. Correlate clinically for evidence of a superimposed infectious/inflammatory pneumonitis. Radiographic follow-up to resolution is recommended ACT 112: Negative or not required by law. Electronically signed by: Albert Pettit M.D. 02/16/2022 6:01 PM Venous Doppler Study 02/16/22 18:28 LEFT LOWER EXTREMITY VENOUS DOPPLER HISTORY: Acute pain and swelling of the lower legs Dvt COMPARISON STUDY: None. FINDINGS: Limited exam secondary to patient body habitus. Complex hypoechoic collection within the left popliteal fossa measures 7.3 x 3.3 x 3.5 cm. There is normal compressibility, flow, and augmentation within the left lower extremity deep venous system. IMPRESSION: 1. No DVT within the left lower extremity. 2. Hypoechoic 7.3 cm complex collection within the popliteal fossa favors a Chance's cyst. ACT 112: Negative or not required by law. Electronically signed by: Mitul Garcia M.D. 02/17/2022 6:32 AM Abdomen/Pelvis CT 02/16/22 18:31 CT SCAN OF THE ABDOMEN AND PELVIS WITH IV CONTRAST CLINICAL HISTORY: Lower abdominal pain. Fever. COMPARISON STUDY: Abdominal CT dated 02/08/2021. TECHNIQUE: Following the IV administration of 94 cc of Optiray 320, CT scan of the abdomen and pelvis is performed from the lung bases to the proximal femora. Images are reviewed in the axial, sagittal, and coronal planes. IV contrast was administered without complication. A dose lowering technique was utilized adhering to the principles of ALARA. The examination is degraded by motion artifact. There is also streak artifact from the right arm which could not be elevated above the abdomen. CT DOSE: 819.51 mGy.cm FINDINGS: Lung bases: The patient is status post midline sternotomy and cardiac valve surgeries. The coronary arteries are densely calcified. The enlarged and and without pericardial effusion. The lung bases are clear noting bibasilar scarring/atelectasis. Liver: The contrast-enhanced liver is mildly enlarged measuring 18.6 cm in length. The liver is cirrhotic in morphology and heterogeneous in attenuation comment noting nodularity of the hepatic surface contour. There is no intrahepatic biliary ductal dilatation. The hepatic veins and portal veins are patent. Mild periportal edema is observed. Gallbladder: Surgically absent noting clips in the gallbladder fossa. 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 Numerous splenules in the left upper quadrant measure up to 3.2 cm. Pancreas: The pancreas is atrophic and grossly unremarkable. Adrenal glands: Unremarkable. Kidneys: The contrast enhanced kidneys are normal in size and without hydronephrosis. The kidneys enhance symmetrically. There are numerous bilateral renal cysts which measure up to 3 cm. Additional subcentimeter cortical hypodensities also likely represent cysts but are too small for definitive characterization. There is a 3 mm nonobstructing right renal calculus. Abdominal vasculature: The abdominal aorta is normal in course and caliber noting moderate to advanced atherosclerotic calcification. 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 There is no bowel obstruction. Mildly distended small bowel loops are the distal anastomosis are likely related to denervation. The appendix is well-visualized and normal. Peritoneum: There is no intraperitoneal free air or abdominal ascites. There is laxity of the ventral abdominal wall with diastases of the rectus musculature and protrusion of abdominal contents. Lymphadenopathy: There are prominent retroperitoneal, left iliac chain, and left inguinal lymph nodes. The left external iliac chain node node on image #355 measures 13 mm in short axis Left inguinal nodes measure up to 12 mm in short axis. Pelvic viscera: The bladder is normal as visualized. The uterus is surgically absent. No adnexal lesion is seen. Skeletal structures: The skeletal structures are osteopenic. There is moderate lumbosacral spondylosis. There are chronic compression deformities of L1, L2, and L4. No lytic or blastic lesions are seen. IMPRESSION: 1. There are no acute infectious or inflammatory findings in the abdomen or pelvis. 2. 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 No bowel obstruction is seen. 3. The liver is enlarged, heterogeneous, and cirrhotic in morphology. 4. There are prominent retroperitoneal, left iliac chain, and left inguinal lymph nodes. These have increased in size from 02/08/2021 and may be reactive. Clinical correlation will be required. 5. Right-sided nephrolithiasis. 6. Additional findings as above. ACT 112: Negative or not required by law. Electronically signed by: Albert Pettit M.D. 02/16/2022 7:30 PM Blood Pressure Blood Pressure Findings: Normal blood pressure Blood Pressure Disposition: did not require urgent referral Discharge Plan Visit Data Chief Complaint: Shortness of Breath/Dyspnea Stated Complaint: HAND/FEET NUMB, CHILLS, SOB ED Provider: Rafaela Anderson Discharge Problem: Bilateral pneumonia, Fever, Atrial fibrillation with RVR Patient Disposition: Admitted As Inpatient Discharge Instructions Interventions: ED Discharge Assessment Last Done: 02/16/22 22:56
[2022-02-18 13:30] LABS: Calcium 9.4 mg/dl (8.5-10.1); Creatinine Clr Calc Pharmacy 61.5 ml/min; Est GFR (African American) 63.8 ml/min; Est GFR (Non-African American) 55.1 ml/min; Potassium 3.2 mmol/L (3.5-5.1)
[2022-02-18] MEDS ORDERED: POTASSIUM CHLORIDE 20 MEQ/15 ML UDC PO STA (13:47)
--- NOTE | 2022-02-18 14:00 | Hospitalist Progress Note ---
Date of Service February 18, 2022 Assessment & Plan (1) Sepsis: Plan: 76yo female with multiple medical comorbidities presenting with sepsis syndrome - fever of 39.3, tachycardia, WBC=20.17 with neutrophil predominance. Patient's blood pressure is stable. Lactate is normal at 1.1. -Sepsis most likely secondary to left lower extremity cellulitis, the left lower extremity is tender, patient has a chronic stasis in the left lower extremity Blood cultures x2: Group B beta strep Surveillance cultures drawn Cefazolin/vancomycin narrowed to ampicillin 2 g every 4 hour Anticipate 14-day course of IV treatment for gram-positive bacteremia with GBS Surveillance cultures drawn 02/18, would follow for at least 24-48 [address] ultrasound-guided Leukocytosis downtrending from 33-15 02/18 (2) Hx of aortic valve replacement, mechanical: Plan: Patient with mechanical aortic and mitral valves in place. INR is subtherapeutic Continue therapeutic Lovenox INR of 1.9 today, will increase dose to 5 mg Wednesday, 2.5 mg other days INR daily Goal INR 2.53.5 for mechanical valve (3) Permanent atrial fibrillation: Plan: RVR on arrival. Improved with administration of Metoprolol 5mg IV in the ER -Continue Metoprolol 50mg po BID -Continue Coumadin as above -Adequately rate controlled 02/18 -Telemetry [facility] (4) Lower extremity edema: Plan: Patient reports LE edema -Continue Bumex 4mg po daily -Continue daily potassium supplemetation -Monitor daily weights -Monitor I/Os -Hypokalemic to 2.6, improved to 3.2 following scheduled potassium. Additional 40 meq given. Continue daily repletion and daily BMP. Magnesium normalized (5) Anastomotic ulcer: Plan: Patient with recent hospitalization in [facility] for GIB from anastomotic ulcers. She was started on Protonix and Carafate. No additional bleeding noted. Hgb=11 (reportedly 7 at OSH - no transfusion given) -Continue Protonix 40mg po BID -Continue Sucralfate (6) Hypomagnesemia: Plan: Hypomagnesemia, replace magnesium Magnesium normalized (7) Hyperlipidemia: Plan: Chronic. -Continue Atorvastatin (8) Diabetes: Plan: Diet controlled. Blood nzvuv=620. -Lantus 5BID -ISS Admission and Anticipated Discharge Date Admission Date: February 16, 2022 Subjective Eden reports she feels greatly improved today compared to yesterday. Has had no fever, chills, sweats, lightheadedness, dizziness, leg pain, difficulty breathing overnight. Energy is a little better today. She did have a itchy rash on her right inner forearm which did spread to her legs bilaterally and stomach last night following vancomycin infusion, this resolved with Benadryl. She has some diffuse itching this morning, but no rash. No nausea/vomiting/diarrhea/constipation. Review of Systems Review of Systems: All systems reviewed & are unremarkable except as noted in Subjective Physical Exam Physical Exam: General: A&Ox3. NAD. Cooperative. HEENT: Atraumatic, normocephalic. Vision and hearing grossly intact. Pulm: CTAB A&P. -wheezes, -rales, -rhonchi. Symmetrical chest rise. No increase in work of breathing. No respiratory distress. Cardiac: Irregularly irregular, systolic murmur present. Radial pulses intact and symmetrical. Abdominal: Nontender, nondistended, soft. BS present. Extremity: Left lower extremity with 2+ edema slightly increased compared to the right, minimally appreciable warmth/redness distal to the mid calf. Dry ulcer at left fifth toe without discharge/purulence. PT pulses intact bilaterally. Results & Data Results & Data ([facility]) Vital Signs (Past 12 Hours) Vital Signs Temp Pulse Pulse Resp BP Pulse Ox 02/18/22 11:03 36.5 C 81 20 122/76 98 02/18/22 07:51 36.5 C 88 20 130/76 94 02/18/22 07:17 87 02/18/22 04:00 36.7 C 79 20 131/74 98 PG Care Time/CCT Total # of Minutes Spent Total Time Spent with Patient: Total time spent is greater than 50% in coordination of care (as documented) at patient's floor/unit and/or counseling patient: Coding Level of Care Code 19962 Subseq Hosp Care Lvl 3 Diagnoses Sepsis A41.9 Hx of aortic valve replacement, mechanical Z95.2 Permanent atrial fibrillation I48.21 Lower extremity edema R60.0 Anastomotic ulcer K28.9 Hypomagnesemia E83.42 Hyperlipidemia E78.5 Diabetes E11.9
[2022-02-18] MEDS ORDERED: diphenhydrAMINE Capsule 25 MG CAP PO ONE (14:33)
[2022-02-18] MEDS: AMPICILLIN 2,000 MG in SODIUM CHLOR 0.9% AD-VAN 100 ML IV SCH ×2 (15:40→20:54)
[2022-02-18] MEDS: WARFARIN SOD 2.5 MG TAB PO SCH ×2 (16:23)
[2022-02-19] MEDS: AMPICILLIN 2,000 MG in SODIUM CHLOR 0.9% AD-VAN 100 ML IV SCH ×6 (00:59→21:05)
[2022-02-19] MEDS: ACETAMINOPHEN 325 MG TAB PO PRN (01:15)
[2022-02-19] MEDS ORDERED: VANCOMYCIN TROUGH ONE (05:30)
[2022-02-19] MEDS: ENOXAPARIN 100 MG/1ML SYR SC SCH ×2 (05:35→17:14)
[2022-02-19 06:19] LABS: Basophils # (auto) 0.06 K/uL (0-0.2); Basophils % (auto) 0.5 %; Eosinophils # (auto) 2.04 K/uL (0-0.5); Eosinophils % (auto) 16.2 %; Hematocrit (blood only) 28.6 % (37-47); Hemoglobin 9.4 g/dL (12.0-16.0); Immature Granulocytes % (auto) 0.8 %; Lymphocytes # (auto) 2.04 K/uL (1.2-3.4); Lymphocytes % (auto) 16.2 %; Mean Corpuscular Hemoglobin 29.3 pg (25-34); Mean Corpuscular Hgb Conc 32.9 g/dL (32-36); Mean Corpuscular Volume 89.1 fL (80-100); Mean Platelet Volume 8.8 fL (7.4-10.4); Monocytes # (auto) 1.17 K/uL (0.11-0.59); Monocytes % (auto) 9.3 %; Neutrophils # (auto) 7.18 K/uL (1.4-6.5); Platelet Count 510 K/uL (130-400); RDW Coefficient of Variation 15.2 % (11.5-14.5); RDW Standard Deviation 49.5 fL (36.4-46.3); Red Blood Count 3.21 M/uL (4.2-5.4); White Blood Count 12.59 K/uL (4.8-10.8)
[2022-02-19 06:34] LABS: BUN Creatinine Ratio 39.8 (10-20); Calcium 8.8 mg/dl (8.5-10.1); Creatinine Clr Calc Pharmacy 73.1 ml/min; Est GFR (African American) 79.9 ml/min; Potassium 3.1 mmol/L (3.5-5.1)
[2022-02-19 06:50] LABS: INR 2.4 (0.9-1.1); Prothrombin Time 24.1 Seconds (9.0-12.0)
[2022-02-19] MEDS: INSULIN ASPART PER UNIT SC SCH ×4 (08:11→20:51)
[2022-02-19] MEDS: ATORVASTATIN 10 MG TAB PO SCH (08:25)
[2022-02-19] MEDS: SUCRALFATE 1 GM TAB PO SCH ×3 (08:25→20:52)
[2022-02-19] MEDS: PANTOprazole 40 MG TAB PO SCH ×2 (08:26→20:53)
[2022-02-19] MEDS: BUMETANIDE 1 MG TAB PO SCH (08:26)
[2022-02-19] MEDS: METOPROLOL SUCC 50MG EXT REL TAB PO SCH ×2 (08:26→20:53)
[2022-02-19] MEDS: POTASSIUM CHLORIDE 20 MEQ/15 ML UDC PO SCH (08:27)
[2022-02-19] MEDS: INSULIN GLARGINE SOLOSTAR 100 UNITS/ML 3 ML PEN SC SCH ×2 (09:27→20:52)
[2022-02-19] MEDS ORDERED: POTASSIUM CHLORIDE 20 MEQ/15 ML UDC PO ONE (12:00)
--- NOTE | 2022-02-19 12:02 | Hospitalist Progress Note ---
Date of Service February 19, 2022 Assessment & Plan (1) Sepsis: Plan: 76yo female with multiple medical comorbidities presenting with sepsis syndrome - fever of 39.3, tachycardia, WBC=20.17 with neutrophil predominance. Patient's blood pressure is stable. Lactate is normal at 1.1. -Sepsis most likely secondary to left lower extremity cellulitis, the left lower extremity is tender, patient has a chronic stasis in the left lower extremity Blood cultures x2: Group B beta strep Surveillance cultures drawn, preliminarily remain negative Cefazolin/vancomycin narrowed to ampicillin 2 g every 4 hour Anticipate 14-day course of IV treatment for gram-positive bacteremia with GBS Leukocytosis downtrending Afebrile, clinically improving If blood cultures remain negative, place peripheral ultraSound guided IV tomorrow. Will require 14 days of IV antibiotic treatment for group B strep bacteremia, increased risk with presence of mechanical valve so would not narrow to orals. Ampicillin every 4 hours may be converted to continuous IV pump. Drug dosing creatinine clearance remains well above 50. 2 g every 4 hours, total daily dose of 12 g by infusion pump. Will need 12 days of additional antibiotics if able to be discharged tomorrow. Discussed with case management PT/OT pending, patient reports she feels that she is near her baseline level of strength and would like to take a walk in the [place] today. Has walkers and assistive devices at home so is hoping to return home at discharge (2) Hx of aortic valve replacement, mechanical: Plan: Patient with mechanical aortic and mitral valves in place. INR 2.43/31 Continue therapeutic Lovenox Continue warfarin INR daily Goal INR 2.53.5 for mechanical valve (3) Permanent atrial fibrillation: Plan: RVR on arrival. Improved with administration of Metoprolol 5mg IV in the ER -Continue Metoprolol 50mg po BID -Continue Coumadin as above -Adequately rate controlled 02/18 -Telemetry [facility] (4) Lower extremity edema: Plan: Patient reports LE edema -Continue Bumex 4mg po daily. Patient is on sliding scale at home, 2 mg if less than 210, 3 mg to 102 15, 4 mg to 152 25, 5 mg plus/minus metolazone if greater than 225 -Continue daily potassium supplemetation -Monitor daily weights -Monitor I/Os -Hypokalemic to 2.6, improved to 3.2 following scheduled potassium. On outpatient review was up to 120 mg daily in the morning, dose adjusted. Additional 40 meq given. Continue daily repletion and daily BMP. Magnesium normalized (5) Anastomotic ulcer: Plan: Patient with recent hospitalization in [facility] for GIB from anastomotic ulcers. She was started on Protonix and Carafate. No additional bleeding noted. Hgb=11 (reportedly 7 at OSH - no transfusion given) on admission -Continue Protonix 40mg po BID -Continue Sucralfate (6) Hypomagnesemia: Plan: Hypomagnesemia, replace magnesium Magnesium normalized (7) Hyperlipidemia: Plan: Chronic. -Continue Atorvastatin (8) Diabetes: Plan: Diet controlled. Blood zgcpg=[id number]. -Corwinjessica 5BID -ISS Admission and Anticipated Discharge Date Admission Date: February 16, 2022 Nima Harmno seen at the bedside this morning. She reports that she has always had some intermittent chills for several years, but nothing like what she had prior to admission. No fever. No shortness of breath, chest pain, difficulty breathing. Feels her leg swelling is much better, is able to standAnd walk nearly normally. Denies lightheadedness, dizziness, syncope, presyncope, chest pressure. Has been refusing Lovenox shots, discussed the importance of anticoagulation for her mechanical valve while INR subtherapeutic. Fortunately this is 2.4 today and nearly back in therapeutic range. Patient expresses an understanding of this, agreeable to Lovenox while subtherapeutic but hopefully INR will be back in therapeutic range on recheck Review of Systems Review of Systems: All systems reviewed & are unremarkable except as noted in Subjective Physical Exam Physical Exam: General: A&Ox3. NAD. Cooperative. HEENT: Atraumatic, normocephalic. Vision and hearing grossly intact. Pulm: CTAB A&P. -wheezes, -rales, -rhonchi. Symmetrical chest rise. No increase in work of breathing. No respiratory distress. Cardiac: Irregularly irregular, systolic murmur present. Radial pulses intact and symmetrical. Abdominal: Nontender, nondistended, soft. BS present. Extremity: Left lower extremity with 2+ edema slightly increased compared to the right, resolved warm th/redness distal to the mid calf, nontender today. Edema is improved compared to yesterday Dry ulcer at left fifth toe without discharge/purulence. PT pulses intact bilaterally. Results & Data Results & Data ([facility]) Vital Signs (Past 12 Hours) Vital Signs Temp Pulse Resp BP Pulse Ox 02/19/22 07:42 36.5 C 75 18 132/79 98 02/19/22 03:26 36.6 C 81 18 103/62 95 PG Care Time/CCT Total # of Minutes Spent Total Time Spent with Patient: Total time spent is greater than 50% in coordination of care (as documented) at patient's floor/unit and/or counseling patient: Coding Level of Care Code 63987 Subseq Hosp Care Lvl 2 Diagnoses Sepsis A41.9 Hx of aortic valve replacement, mechanical Z95.2 Permanent atrial fibrillation I48.21 Lower extremity edema R60.0 Anastomotic ulcer K28.9 Hypomagnesemia E83.42 Hyperlipidemia E78.5 Diabetes E11.9
[2022-02-19] MEDS: WARFARIN SOD 2.5 MG TAB PO SCH ×2 (17:12→17:13)
[2022-02-19] MEDS ORDERED: diphenhydrAMINE Capsule 25 MG CAP PO ONE (20:15)
[2022-02-20] MEDS: AMPICILLIN 2,000 MG in SODIUM CHLOR 0.9% AD-VAN 100 ML IV SCH ×3 (01:42→10:07)
[2022-02-20] MEDS: ACETAMINOPHEN 325 MG TAB PO PRN (01:47)
[2022-02-20] MEDS: ENOXAPARIN 100 MG/1ML SYR SC SCH (04:55)
[2022-02-20 07:10] LABS: Hematocrit (blood only) 30.1 % (37-47); Hemoglobin 9.2 g/dL (12.0-16.0); Mean Corpuscular Hemoglobin 27.6 pg (25-34); Mean Corpuscular Hgb Conc 30.6 g/dL (32-36); Mean Corpuscular Volume 90.4 fL (80-100); Mean Platelet Volume 8.9 fL (7.4-10.4); Platelet Count 566 K/uL (130-400); RDW Coefficient of Variation 15.2 % (11.5-14.5); RDW Standard Deviation 49.7 fL (36.4-46.3); Red Blood Count 3.33 M/uL (4.2-5.4); White Blood Count 10.66 K/uL (4.8-10.8)
[2022-02-20 07:30] LABS: Creatinine Clr Calc Pharmacy 73.4 ml/min; Est GFR (African American) 79.9 ml/min; INR 3.9 (0.9-1.1); Prothrombin Time 38.3 Seconds (9.0-12.0)
[2022-02-20] MEDS: INSULIN ASPART PER UNIT SC SCH ×2 (08:17→11:15)
[2022-02-20] MEDS: PANTOprazole 40 MG TAB PO SCH (08:18)
[2022-02-20] MEDS: INSULIN GLARGINE SOLOSTAR 100 UNITS/ML 3 ML PEN SC SCH (08:18)
[2022-02-20] MEDS: ATORVASTATIN 10 MG TAB PO SCH (08:18)
[2022-02-20] MEDS: METOPROLOL SUCC 50MG EXT REL TAB PO SCH (08:18)
[2022-02-20] MEDS: SUCRALFATE 1 GM TAB PO SCH (08:19)
[2022-02-20] MEDS ORDERED: POTASSIUM CHLORIDE 20 MEQ/15 ML UDC PO SCH (09:00)
--- NOTE | 2022-02-20 12:43 | Discharge Summary ---
Date of Service February 20, 2022 Admission HPI Per Admitting Provider Eden Wagner is a 76yo female with history of permanent atrial fibrillation, mechanical aortic and mitral valves on Coumadin anticoagulation with INR of 2.4 today, CAD, HTN, HLP presenting with acute onset fever, chills, rigors and SOB. Patient reports being in her usual state of health. She has had some increased bilateral LE edema of late, otherwise no complaints. She was running errands this AM around 10:00 when she developed acute left calf pain followed by SOB, fever and rigors. She has fever, chills rigors. Chronic dry cough. SOB as well as some chest tightness. She denies abdominal pain, nausea, vomiting, diarrhea or constipation. No dysuria/frequency or urgency. She has been eating well at home. No melena/hematochezia. Still with pain in her left posterior calf. Patient is in the process of relocating to [facility]. She was hospitalized at [facility] 2-3 weeks ago with GIB secondary to anastomotic ulcers from GBP. She reports her Hgb got down to 7. She did not receive a transfusion. She was started on Protonix 40mg po BID and Carafate TID. ER Course: Tylenol, Cefepime, Mg x 1gm, Metoprolol 5mg IV, Metoprolol 50mg po, Protonix 40mg po, Coumadin 5mg po, Sucralfate x 1gm, NSS x 1L Principal Diagnosis General: A&Ox3. NAD. Cooperative. HEENT: Atraumatic, normocephalic. Vision and hearing grossly intact. Pulm: CTAB A&P. -wheezes, -rales, -rhonchi. Symmetrical chest rise. No increase in work of breathing. No respiratory distress. Cardiac: Irregularly irregular, systolic murmur present. Radial pulses intact a nd symmetrical. Abdominal: Nontender, nondistended, soft. BS present. Extremity: No residual erythema/warmth of the lower extremity. Edema is improved compared to yesterday Dry ulcer at left fifth toe without discharge/purulence. PT pulses intact bilaterally Discharge Data Allergies Allergy/AdvReac Type Severity Reaction Status Date / Time iron [From Venofer] Allergy Severe VENOFER Verified 02/16/22 22:03 INFUSION-RASH,WEAKNESS,BLEEDING-HOSPITALIZED iron dextran complex Allergy Severe RASH Verified 02/16/22 22:03 choline salicylate Allergy Intermediate TRILISATE-r Verified 02/16/22 22:03 nay magnesium salicylate Allergy Intermediate TRILISATE-r Verified 02/16/22 22:03 nay mometasone furoate Allergy Unknown Pt has no Verified 02/16/22 22:03 recollection of this Consultations 02/16/22 21:45 ED Decision to Admit Stat Ordered Studies 02/16/22 18:28 US venous doppler LE LT Stat 02/16/22 18:31 CT abd pelvis IV con only Stat Hospital Course (1) Sepsis: 76yo female with multiple medical comorbidities presenting with sepsis syndrome - fever of 39.3, tachycardia, WBC=20.17 with neutrophil predominance. Patient's blood pressure is stable. Lactate is normal at 1.1. Treated for cellulitis with group B strep bacteremia. Due to presence of mechanical heart valve treated with IV ampicillin for 14-day total course. To do as outpatient: 1. Complete 14-day course of ampicillin. Given as continuous infusion via pump, 12 g total daily dose 2. Weekly CBC/BMP while under antibiotic treatment by PCP 3. Continued follow-up of potassium, fluid status adjustment of diuretic as appropriate 4. INR check, adjustment of warfarin as needed. Patient was initially subtherapeutic, then supratherapeutic without signs of bleeding prior to discharge. Hemoglobin was uptrending at discharge 5. BMP rechecked for potassium levels. Patient to continue home dose of 120 M EQ supplemental daily. Magnesium normal during admission -Sepsis most likely secondary to left lower extremity cellulitis, the left lower extremity is tender, patient has a chronic stasis in the left lower extremity Blood cultures x2: Group B beta strep Surveillance cultures drawn, preliminarily remain negative Cefazolin/vancomycin narrowed to ampicillin 2 g every 4 hour Discharged on ampicillin by continuous pump as noted above Independently ambulatory and walking without difficulty at time of discharge (2) Hx of aortic valve replacement, mechanical: Patient with mechanical aortic and mitral valves in place. Goal INR 2.53.5 for mechanical valve Patient additionally subtherapeutic during admission, 3.9 at time of discharge with 1 dose held and to resume home dosing and home INR checks on discharge Patient will continue to follow INR and contact PCP for adjustments as needed No clinical signs of bleeding, uptrending hemoglobin at discharge (3) Permanent atrial fibrillation: RVR on arrival. Improved with administration of Metoprolol 5mg IV in the ER -Continue Metoprolol 50mg po BID -Continue Coumadin as above -Adequately rate controlled 02[facility] (4) Lower extremity edema: Patient reports LE edema -Continue Bumex 4mg po daily. Patient is on sliding scale at home, 2 mg if less than 210, 3 mg to 102 15, 4 mg to 152 25, 5 mg plus/minus metolazone if greater than 225 -Continue daily potassium supplemetation -Monitor daily weights -Monitor I/Os -Hypokalemic to 2.6, improved to 3.2 following scheduled potassium. On outpatient review was up to 120 mg daily in the morning, dose adjusted. A dditional 40 meq given. Continue daily repletion and daily BMP. Magnesium normalized (5) Anastomotic ulcer: Patient with recent hospitalization in [facility] for GIB from anastomotic ulcers. She was started on Protonix and Carafate. No additional bleeding noted. Hgb=11 (reportedly 7 at OSH - no transfusion given) on admission -Continue Protonix 40mg po BID -Continue Sucralfate (6) Hypomagnesemia: Hypomagnesemia, replace magnesium Magnesium normalized (7) Hyperlipidemia: Chronic. -Continue Atorvastatin (8) Diabetes: Diet controlled. Blood cmtey=539. -Lantus 5BID -ISS Total Time Total Time Spent Total Time Spent (In Minutes): Time spend day of discharge 60 minutes including direct patient care, docu mentation, review of labs and images, and coordination of care. Discharge Plan Discharge Items Patient Disposition: Home - Home Health Services Reason For Visit: FEVER, SOB Discharge Diagnosis: Cellulitis, group B strep bacteremia Activity: Resume your previous activity Non-emergency contact: Primary Care Provider Call non-emergency contact if: you have any medication questions, your symptoms worsen, your pain is not controlled, your pain is worsening, your pain is unusual for you and you have a fever Follow-up/Referrals: ProFernie MD [Primary Care Provider] - 03/04/22 11:15 am Diet: Carb Consistent or DM2 and Heart Healthy Addtl Attending Provider Instructions: You are seen in the hospital for an infection of your leg with bacteria that had spread to your bloodstream. You did well with antibiotics. Due to you having bacteria in your bloodstream, and having a history of a mechanical heart valve, it was recommended that you have a 14-day course of treatment with IV antibiotics. These have been arranged with home health via continuous infusion pump as noted below. Your cellulitis improved. You are independently ambulatory at time of discharge, and additional placement for therapy was not recommended. You are being discharged to complete a 14-day course of ampicillin. Please take a total daily dose of ampicillin 12 g by continuous infusion pump for 12 more days. Your INR was elevated at time of discharge. Your dose of warfarin was held 02/20/2022. Please continue to check your INR at home, and call your primary care physician for additional adjustments. Your hemoglobin was uptrending, he did not show signs of bleeding at discharge. If you develop signs of bleeding or symptoms as noted below, seek prompt medical reevaluation. Please resume your home dosing of warfarin at this time If you develop recurrent fevers, worsening symptoms, chest pain, chest pressure, shortness breath, or difficulty breathing please seek prompt medical reevaluat ion. You should have a follow-up appointment with Dr. Rodriguez's office within 1 week, this is being scheduled for you and if you do not receive a call to confirm your appointment within 48 hours please call his office at the number above. Please have a weekly CBC/BMP drawn to follow your blood work by your primary care provider while on antibiotics. If you develop any new or worsening symptoms including fever, chills, sweats, chest pain, chest pressure, difficulty breathing, uncontrolled nausea/vomiting, rash, wheezing, passing out or nearly passing out, bleeding, black/bloody bowel movements, or other new or concerning symptoms please call your primary care physician, or call 911 for re-evaluation in the emergency department if you are very concerned. Pending Studies at Discharge: No Stand-Alone Forms: [employer], Smoking Cessation Medications and DC Order Prescriptions: New ampicillin sodium 125 mg recon soln 12,000 mg IV Q4H 12 Days Qty: 1 RF: 0 Continued warfarin 5 mg tablet 5 mg PO .COMPLEX Qty: 120 RF: 3 metolazone 5 mg tablet 5 mg PO DIRECTED Qty: 30 RF: 5 (DME) BD Eclipse 25 gauge x 1" needle See Rx Instructions .ROUTE .MEDSUPPLY Qty: 3 RF: 3 cyanocobalamin (vitamin B-12) 1,000 mcg/mL solution 1,000 mcg IM Q4WK Qty: 3 RF: 3 oxycodone-acetaminophen [Percocet] 5-325 mg tablet 1 tab PO Q6H PRN (Reason: pain) Qty: 14 RF: 0 tramadol 50 mg tablet 50 mg PO TID PRN (Reason: Pain) Qty: 90 RF: 0 multivitamin Tablet 1 tab PO QAM RF: 0 metoprolol succinate 50 mg tablet extended release 24 hr 50 mg PO BID Qty: 180 RF: 3 acetaminophen 500 mg capsule 1,000 mg PO DAILY PRN (Reason: Pain) RF: 0 polyethylene glycol 3350 [Miralax] 17 gram/dose powder 17 g PO DAILY PRN (Reason: Constipation) RF: 0 pantoprazole 40 mg tablet,delayed release (DR/EC) 40 mg PO BID RF: 0 atorvastatin 10 mg tablet 10 mg PO QAM Qty: 90 RF: 3 sucralfate 1 gram tablet 1 g PO TID RF: 0 potassium chloride 20 mEq/15 mL liquid See Rx Instructions .ROUTE .COMPLEX RF: 0 bumetanide 1 mg tablet 4 mg PO QAM RF: 0 Discharge Orders: Discharge Order (Routine); Ordered 02/20/22 Ordered By: Duc Deleon/Other Patient Handouts: Managing Type 2 Diabetes Admission Data Admit Date/Time: 02/16/22 22:25 Attending Provider: Duc Han Admit Provider: Lynnette Monroe Primary Care Provider: Fernie Rodriguez Other Providers: Lynnette Monroe ; [facility] Coding Level of Care Code D/C DAY MANAGEMENT >30 MINS Diagnoses Sepsis A41.9 Hx of aortic valve replacement, mechanical Z95.2 Permanent atrial fibrillation I48.21 Lower extremity edema R60.0 Anastomotic ulcer K28.9 Hypomagnesemia E83.42 Hyperlipidemia E78.5 Diabetes E11.9
[2022-02-20] MEDS ORDERED: WARFARIN SOD 5 MG TAB PO SCH (16:00)
[2022-02-23] MEDS ORDERED: WARFARIN SOD 5 MG TAB PO SCH (16:00)
== END 2022-02-20 15:03 | disposition home health service (06) | DRG 872 ==
LOC: ED 17:30 → 2N 22:25 → SUATTDRO 22:25 → 2N 22:56

== ENCOUNTER 2022-04-04 16:38 | Inpatient (IN) ==
--- NOTE | 2022-04-04 17:26 | Emergency Department Note ---
Impression & Plan Left leg cellulitis, Diabetes, Diabetic ulcer of left fifth toe ED Provider Note Provider: Phuc Alonzo MD DATE OF SERVICE: 04/04/2022 CHIEF COMPLAINT: Left leg pain and swelling HISTORY OF PRESENT ILLNESS: Patient is a 89-year-old female with multiple medical comorbidities including history of bacteremia, aortic and mitral valve replacement with mechanical valves on warfarin, atrial fibrillation, gastric bypass, and diabetes presenting here today reporting over the last several days she has had increasing pain in her left leg. She states that she had some chills several days ago but did not measure a fever. States she is a process of moving [place] and just got back into town today and came here on the advice of her doctor. Reports a wound on her right fifth toe but has admitted wound clinic as she is been out of town. Some redness and tenderness of the right foot and left lower leg to the right lower inner thigh. She states her INR was little bit elevated this week and she will hold her dose of her Coumadin. She denies significant chest pain reports a little bit of dyspnea on exertion may be slightly worse than normal. States her right lower leg is a little bit swollen but not significantly as much as her left. She states he has a history of infection in her left leg. REVIEW OF SYSTEMS: A total of 10 review of systems was obtained and negative except as stated above in the HPI. PAST MEDICAL HISTORY: As noted above MEDICATIONS:Reviewed home medications includes warfarin SOCIAL HISTORY: PHYSICAL EXAM: GENERAL: alert and oriented in no acute distress on stretcher Head: normocephalic and atraumatic EYES: No injection, discharge or icterus. NECK: Trachea midline. ENT: Mucous membranes pink and moist. LUNGS: Airway patent. No retractions. Breath sounds clear anterior auscultation HEART: Irregular rate and rhythm. No chest wall tenderness ABDOMEN: Soft and non-tender, without guarding or rebound. SKIN: Acyanotic, warm, dry EXTREMITIES: Patient with some chronic stasis changes of the lower extremities with some scaling skin on both shins. The left lower leg with 2-3+ edema and some erythema over the dorsum of the foot extending around the lower leg into the distal medial thigh with some slight tenderness but no crepitus. There is an approximate 4 mm wound of the left fifth toe with surrounding erythema with no active bleeding. NEUROLOGICAL: No aphasia. No facial droop or slurred speech. EK bpm atrial fibrillation without acute ST segment elevation with an incomplete right bundle branch block and a QTC of 486. CONTINUOUS CARDIAC MONITORING: was ordered and showed a heart rate of 80s-90s bpm in atrial fibrillation Patient's laboratory studies and imaging reviewed. Differential includes DVT, musculoskeletal, infection, joint effusion, trauma, lymphedema, idiopathic, CHF, as well as other pathologies. IMPRESSION/MEDICAL DECISION MAKING: Patient with significant medical remedies and history. History of sepsis and leg infection. Diabetic. The left fifth toe appears to have infection endocervix ultrasound from this. Blood cultures ordered. Appears to have some erythema extending with worsened edema of the left lower extremity. Is not are we will completed ultrasound to exclude DVT for sure. Likelihood of infection seems much higher. X-ray of the leg as well as chest was obtained as well as basic blood work inflammatory markers. Reviewed prior microbiology. Patient does not appear to be in acute CHF at this point but likely some mild component. She has been taking her diuretics. Denies the use of any antipyretics or Tylenol today. Blood work here today with slightly improved anemia without significant leukocytosis. COVID test negative. 2.6. Slight hypokalemia 3.2 with stable renal function. Procalcitonin not severely elevated. INR therapeutic at 2.6. Mild hypokalemia 3.2. Stable renal function. BNP mildly elevated but less than previous admission and chest x-ray per radiology without findings of significant pulmonary vascular congestion. CRP and ESR both elevated and concern regarding localized infection in this left lower extremity. Given the wound on her left fifth toe although x-ray does not treat osteomyelitis with her multiple comorbidities feel that IV antibiotics given the extent would be indicated. Discussed with the patient. Given vancomycin and cefepime. We will complete an ultrasound of abundance of caution but lower suspicion for DVT. Discussed with the hospitalist and the patient for further care here. DIAGNOSIS: Left fifth toe wound, left lower extremity cellulitis, diabetes DISPOSITION: Hospitalist will evaluate Patient was agreeable with this plan. 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 Mitral regurgitation Nontoxic multinodular goiter Obesity Obstructive sleep apnea Osteoporosis Pericardial effusion Permanent atrial fibrillation Personal history of diabetic foot ulcer Spinal stenosis, lumbar region with neurogenic claudication 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 Vitamin B12 deficiency Vitamin D deficiency Surgical History H/O gastric bypass H/O hernia repair H/O splenectomy H/O splenectomy History of esophagogastroduodenoscopy (EGD) History of knee replacement bilateral History of total abdominal hysterectomy many years ago, fibroids, bleeding Hx of appendectomy Hx of cholecystectomy Hx of tonsillectomy S/P gastric bypass S/P pericardial window creation (2011) Status post panniculectomy Family History Mother Congestive heart failure Diabetes Hypertension Cardiac disorder Brother Diabetes Polycythemia Pharyngeal neoplasm Pulmonary embolism Father Lung cancer Acute myocardial infarction Hypertension Cardiac disorder Myocardial infarction Denies family history of Ovarian cancer Prostate cancer Crohn's disease Breast cancer Colorectal cancer Social History Smoking Status: Never smoker Second Hand Exposure: No; Hx Alcohol Use: Yes Alcohol type: hard liquor Alcohol type Comment: occassional mixed drink Hx Substance Use: No Preferred Language: Georgian Communication Ability: Effective Visual Impairment: No Limitations Hearing Ability: Normal Manufacturer Required: No Beliefs That Will Affect Care: None marital status: Current Living Situation: Spouse and Family current occupational status: retired How many Children do You have: 1 Other Information That Helps Us Care for You: No Feels Safe at Home: Yes Safety Concerns: Feels Safe At This Time Childhood Exposure to Second-Hand Smoke: No Diet Comment: pt watches diet intake s/p gastric bypass surgery caffeine: Yes during the past year weight has: remained stable Dental Care, Regularly: Yes Physical Activity Frequency: 3-4 Times per Week Seatbelt Use: always Sunscreen Use: Yes Assistive Devices: Glasses Allergies Allergies Allergy/AdvReac Type Severity Reaction Status Date / Time iron [From Venofer] Allergy Severe VENOFER Verified 04/04/22 17:48 INFUSION-RASH,WEAKNESS,BLEEDING-HOSPITALIZED iron dextran complex Allergy Severe RASH Verified 04/04/22 17:48 choline salicylate Allergy Intermediate TRILISATE-r Verified 04/04/22 17:48 nay magnesium salicylate Allergy Intermediate TRILISATE-r Verified 04/04/22 17:48 nay mometasone furoate Allergy Unknown Pt has no Verified 04/04/22 17:48 recollection of this Home Meds Home Medications Medication Instructions Recorded Confirmed multivitamin 1 tab PO QAM 05/06/20 04/04/22 acetaminophen 500 mg capsule 1,000 mg PO DIRECTED PRN cap 03/04/21 04/04/22 polyethylene glycol 3350 17 17 g PO DAILY PRN 02/10/22 04/04/22 gram/dose oral powder (Miralax) bumetanide 1 mg tablet 4 mg PO QAM 02/16/22 04/04/22 potassium chloride 20 mEq/15 mL See Rx Instructions .ROUTE .COMPLEX 02/16/22 04/04/22 oral liquid metolazone 5 mg tablet 5 mg PO DIRECTED PRN 04/04/22 04/04/22 Previous Rx's Medication Instructions Recorded metoprolol succinate 50 mg 50 mg PO BID #180 tab 04/08/21 tablet,extended release 24 hr warfarin 5 mg tablet 5 mg PO .COMPLEX #120 tab 04/15/21 oxycodone-acetaminophen 5 mg-325 1 tab PO Q6H PRN #14 tab 12/05/21 mg tablet (Percocet) tramadol 50 mg tablet 50 mg PO TID PRN #90 tab 01/02/22 BD Eclipse 25 gauge x 1" needle #3 ea NS 02/24/22 (safety needles) cyanocobalamin (vitamin B-12) 1,000 mcg IM Q4WK #3 ml 02/24/22 1,000 mcg/mL injection solution pantoprazole 40 mg tablet,delayed 40 mg PO BID #60 tab 02/24/22 release sucralfate 1 gram tablet 1 g PO TID #90 tab 02/24/22 atorvastatin 20 mg tablet 20 mg PO QAM #90 tab 03/02/22 Results & Data (ED) Vital Signs Vital Signs - 24 hr 04/04/22 16:41 04/04/22 17:36 04/04/22 17:40 Temperature 37.7 C H Temperature Source Temporal Artery Scan Pulse Rate 106 H 90 89 Pulse Rate [Apical] Pulse Rate from SpO2 Sensor 96 H 94 H Respiratory Rate 16 22 23 Respiratory Effort / Characteristics Non-Labored Respiratory Depth Normal Blood Pressure 138/76 Blood Pressure [Left Arm] Blood Pressure Mean 96 Blood Pressure Mean [Left Arm] Pulse Oximetry 96 99 99 Oxygen Delivery Method Room Air Sepsis Recent Fever Within 48 Hours Yes Sepsis New/Unexplained Change in Mental Status No Sepsis Action Taken by Nursing No Action Required 04/04/22 17:50 04/04/22 18:00 04/04/22 18:05 Temperature Temperature Source Pulse Rate 91 H 83 89 Pulse Rate [Apical] Pulse Rate from SpO2 Sensor 90 81 89 Respiratory Rate 23 18 24 Respiratory Effort / Characteristics Respiratory Depth Blood Pressure 145/76 H Blood Pressure [Left Arm] Blood Pressure Mean 99 Blood Pressure Mean [Left Arm] Pulse Oximetry 100 98 100 Oxygen Delivery Method Sepsis Recent Fever Within 48 Hours Sepsis New/Unexplained Change in Mental Status Sepsis Action Taken by Nursing 04/04/22 18:10 04/04/22 18:23 04/04/22 18:28 Temperature Temperature Source Pulse Rate 88 Pulse Rate [Apical] 91 H Pulse Rate from SpO2 Sensor 90 Respiratory Rate 23 16 28 H Respiratory Effort / Characteristics Respiratory Depth Blood Pressure Blood Pressure [Left Arm] 145/76 H Blood Pressure Mean Blood Pressure Mean [Left Arm] 99 Pulse Oximetry 99 99 Oxygen Delivery Method Room Air Sepsis Recent Fever Within 48 Hours Sepsis New/Unexplained Change in Mental Status Sepsis Action Taken by Nursing 04/04/22 18:30 04/04/22 18:40 Temperature Temperature Source Pulse Rate 95 H 89 Pulse Rate [Apical] Pulse Rate from SpO2 Sensor 99 H Respiratory Rate 26 H 20 Respiratory Effort / Characteristics Respiratory Depth Blood Pressure Blood Pressure [Left Arm] Blood Pressure Mean Blood Pressure Mean [Left Arm] Pulse Oximetry 100 Oxygen Delivery Method Sepsis Recent Fever Within 48 Hours Sepsis New/Unexplained Change in Mental Status Sepsis Action Taken by Nursing Laboratory Data Result diagrams: 04/04/22 17:27 04/04/22 17:27 Lab Results 04/04/22 04/04/22 04/04/22 Range/Units 17:16 17:27 17:27 WBC 9.55 (4.8-10.8) K/uL RBC 3.92 L (4.2-5.4) M/uL Hgb 11.2 L (12.0-16.0) g/dL Hct 34.1 L (37-47) % MCV 87.0 (80-100) fL MCH 28.6 (25-34) pg MCHC 32.8 (32-36) g/dL RDW Std Deviation 54.8 H (36.4-46.3) fL RDW Coeff of Donald 17.1 H (11.5-14.5) % Plt Count 483 H (130-400) K/uL MPV 9.2 (7.4-10.4) fL Immature Gran % (Auto) 0.6 % Neut % (Auto) 55.1 % Lymph % (Auto) 24.6 % [place] % (Auto) 13.6 % Eos % (Auto) 5.3 % Baso % (Auto) 0.8 % Neut # (Auto) 5.25 (1.4-6.5) K/uL Lymph # (Auto) 2.35 (1.2-3.4) K/uL [place] # (Auto) 1.30 H (0.11-0.59) K/uL Eos # (Auto) 0.51 H (0-0.5) K/uL Baso # (Auto) 0.08 (0-0.2) K/uL Immature Gran # (Auto) 0.06 H (0.00-0.02) K/uL ESR (0-30) mm/hr PT 26.1 H (9.0-12.0) Seconds INR 2.6 H (0.9-1.1) Sodium (136-145) mmol/L Potassium (3.5-5.1) mmol/L Chloride (98-107) mmol/L Carbon Dioxide (21-32) mmol/L Anion Gap (3-11) BUN (6-23) mg/dl Creatinine (0.6-1.2) mg/dl Est Cr Clr Drug Dosing ml/min Est GFR ( Amer) ml/min Est GFR (Non-Af Amer) ml/min BUN/Creatinine Ratio (10-20) Glucose (70-99(Fasting)) mg/dl Lactate (0.4-2.0) mmol/L Calcium (8.5-10.1) mg/dl Total Bilirubin (0.2-1.0) mg/dl AST (13-39) U/L ALT (7-52) U/L Alkaline Phosphatase (34-104) U/L Troponin I High Sens (0-14) pg/ml C-Reactive Protein (0-0.5) mg/dl B-Natriuretic Peptide (0-100) pg/ml Total Protein (6.0-8.3) gm/dl Albumin (3.4-5.0) gm/dl Globulin (2.5-4.0) gm/dl Albumin/Globulin Ratio (0.9-2) Procalcitonin (0-0.5) ng/ml SARS-CoV-2, RNA, NAAT NEGATIVE (NEGATIVE) 04/04/22 04/04/22 04/04/22 Range/Units 17:27 17:27 17:27 WBC (4.8-10.8) K/uL RBC (4.2-5.4) M/uL Hgb (12.0-16.0) g/dL Hct (37-47) % MCV (80-100) fL MCH (25-34) pg MCHC (32-36) g/dL RDW Std Deviation (36.4-46.3) fL RDW Coeff of Donald (11.5-14.5) % Plt Count (130-400) K/uL MPV (7.4-10.4) fL Immature Gran % (Auto) % Neut % (Auto) % Lymph % (Auto) % [place] % (Auto) % Eos % (Auto) % Baso % (Auto) % Neut # (Auto) (1.4-6.5) K/uL Lymph # (Auto) (1.2-3.4) K/uL [place] # (Auto) (0.11-0.59) K/uL Eos # (Auto) (0-0.5) K/uL Baso # (Auto) (0-0.2) K/uL Immature Gran # (Auto) (0.00-0.02) K/uL ESR (0-30) mm/hr PT (9.0-12.0) Seconds INR (0.9-1.1) Sodium 138 (136-145) mmol/L Potassium 3.2 L (3.5-5.1) mmol/L Chloride 104 (98-107) mmol/L Carbon Dioxide 26 (21-32) mmol/L Anion Gap 8 (3-11) BUN 29 H (6-23) mg/dl Creatinine 0.90 (0.6-1.2) mg/dl Est Cr Clr Drug Dosing 65.0 ml/min Est GFR ( Amer) 72.5 ml/min Est GFR (Non-Af Amer) 62.5 ml/min BUN/Creatinine Ratio 32.2 H (10-20) Glucose 89 (70-99(Fasting)) mg/dl Lactate 1.2 (0.4-2.0) mmol/L Calcium 9.1 (8.5-10.1) mg/dl Total Bilirubin 0.7 (0.2-1.0) mg/dl AST 30 (13-39) U/L ALT 17 (7-52) U/L Alkaline Phosphatase 154 H (34-104) U/L Troponin I High Sens 16.5 H (0-14) pg/ml C-Reactive Protein 6.13 H (0-0.5) mg/dl B-Natriuretic Peptide 246 H (0-100) pg/ml Total Protein 7.7 (6.0-8.3) gm/dl Albumin 3.5 (3.4-5.0) gm/dl Globulin 4.2 H (2.5-4.0) gm/dl Albumin/Globulin Ratio 0.8 L (0.9-2) Procalcitonin (0-0.5) ng/ml SARS-CoV-2, RNA, NAAT (NEGATIVE) 04/04/22 04/04/22 Range/Units 17:27 17:27 WBC (4.8-10.8) K/uL RBC (4.2-5.4) M/uL Hgb (12.0-16.0) g/dL Hct (37-47) % MCV (80-100) fL MCH (25-34) pg MCHC (32-36) g/dL RDW Std Deviation (36.4-46.3) fL RDW Coeff of Donald (11.5-14.5) % Plt Count (130-400) K/uL MPV (7.4-10.4) fL Immature Gran % (Auto) % Neut % (Auto) % Lymph % (Auto) % [place] % (Auto) % Eos % (Auto) % Baso % (Auto) % Neut # (Auto) (1.4-6.5) K/uL Lymph # (Auto) (1.2-3.4) K/uL [place] # (Auto) (0.11-0.59) K/uL Eos # (Auto) (0-0.5) K/uL Baso # (Auto) (0-0.2) K/uL Immature Gran # (Auto) (0.00-0.02) K/uL ESR 92 H (0-30) mm/hr PT (9.0-12.0) Seconds INR (0.9-1.1) Sodium (136-145) mmol/L Potassium (3.5-5.1) mmol/L Chloride (98-107) mmol/L Carbon Dioxide (21-32) mmol/L Anion Gap (3-11) BUN (6-23) mg/dl Creatinine (0.6-1.2) mg/dl Est Cr Clr Drug Dosing ml/min Est GFR ( Amer) ml/min Est GFR (Non-Af Amer) ml/min BUN/Creatinine Ratio (10-20) Glucose (70-99(Fasting)) mg/dl Lactate (0.4-2.0) mmol/L Calcium (8.5-10.1) mg/dl Total Bilirubin (0.2-1.0) mg/dl AST (13-39) U/L ALT (7-52) U/L Alkaline Phosphatase (34-104) U/L Troponin I High Sens (0-14) pg/ml C-Reactive Protein (0-0.5) mg/dl B-Natriuretic Peptide (0-100) pg/ml Total Protein (6.0-8.3) gm/dl Albumin (3.4-5.0) gm/dl Globulin (2.5-4.0) gm/dl Albumin/Globulin Ratio (0.9-2) Procalcitonin 0.16 (0-0.5) ng/ml SARS-CoV-2, RNA, NAAT (NEGATIVE) Administered Medications Acetaminophen (Acetaminophen 325 Mg Tab) 650 mg PO Q4H PRN PRN Reason: pain/fever Stop: 05/04/22 20:20 Last Admin: 04/04/22 21:41 Dose: 650 mg Documented by: [id number] Metoprolol Succinate (Metoprolol Succ 50mg Ext Rel Tab) 50 mg PO BID MARCI Stop: 05/04/22 20:59 Last Admin: 04/04/22 21:43 Dose: 50 mg Documented by: [id number] Pantoprazole Sodium (Pantoprazole 40 Mg Tab) 40 mg PO BID MARCI Stop: 05/04/22 20:59 Last Admin: 04/04/22 21:42 Dose: 40 mg Documented by: [id number] Sucralfate (Sucralfate 1 Gm Tab) 1 gm PO TID MARCI Stop: 05/04/22 20:59 Last Admin: 04/04/22 21:43 Dose: 1 gm Documented by: [id number] Discontinued Medications Vancomycin HCl 1,750 mg/ (Sodium Chloride) 535 mls @ 200 mls/hr IV NOW ONE Stop: 04/04/22 21:12 Last Infusion: 04/04/22 23:49 Dose: 0 mls/hr Documented by: [id number] Admin: 04/04/22 20:28 Dose: 200 mls/hr Documented by: [id number] Cefepime HCl (Maxipime) 2,000 mg in 20 mls @ 5 mls/min IV NOW STA; Protocol Stop: 04/04/22 18:35 Last Admin: 04/04/22 18:41 Dose: 5 mls/min Documented by: [id number] Imaging Data Radiologist's Impression: Chest X-Ray 04/04/22 17:06 XR chest 1V portable CLINICAL HISTORY: sob TECHNIQUE: Single frontal radiograph of the chest was obtained. Comparison: Comparison is made to chest radiograph 02/16/2022 FINDINGS: Median sternotomy wires are unchanged. Fractured wire is unchanged. The cardiomediastinal silhouette is stable. The lungs are clear. No evidence of pleural effusion or pneumothorax. IMPRESSION: No acute abnormalities and in particular no evidence of pneumonia. ACT 112: Negative or not required by law. Electronically signed by: Luis Armando Donnelly M.D. 04/04/2022 6:13 PM Foot X-Ray 04/04/22 17:06 XR foot LT min 3V routine CLINICAL HISTORY: infection?, L 5th toe wound TECHNIQUE: 3 views of the right foot were obtained. Comparison: Comparison is made to left foot radiographs 08/30/2020 FINDINGS: No evidence of bony erosion is seen. Severe degenerative changes are seen most prominent in the mid foot. Diffuse osteopenia is seen. Soft tissue swelling is seen. There is an ulcer at the base of the fifth digit. IMPRESSION: Soft tissue swelling compatible with cellulitis. An ulcer is in the fifth digit. No evidence of osteomyelitis. ACT 112: Negative or not required by law. Electronically signed by: Luis Armando Donnelly M.D. 04/04/2022 6:18 PM Venous Doppler Study 04/04/22 17:08 US venous doppler LE LT CLINICAL HISTORY: swelling, pain TECHNIQUE: Left lower extremity real-time compression venous ultrasound with Color Doppler imaging. Utilizing real-time ultrasonic imaging multiple real time high-resolution ultrasonic images with compression and noncompression maneuvers of the deep venous system in addition to color doppler imaging were performed from the common femoral vein through the proximal calf veins. COMPARISON: Comparison is made to left lower extremity venous Doppler 02/16/2022 FINDINGS: Currently there is normal compressibility of the deep venous system from the common femoral vein through the proximal calf veins. No current evidence of acute thrombosis is identified. Incidental note is made of a popliteal cyst measuring 7.4 x 3.6 x 2.9 cm. Impression: No evidence of deep venous thrombus. Redemonstration of Chance's cyst. ACT 112: Negative or not required by law. Electronically signed by: Luis Armando Donnelly M.D. 04/04/2022 7:41 PM Duplex Scan Lower Extremity Artery 04/04/22 18:41 US arterial duplex LE LT CLINICAL HISTORY: LLE cellulitis, non healing ulcer TECHNIQUE: Real-time grayscale and color and spectral Doppler ultrasound imaging of the bilateral lower extremity arteries was performed. Measurements calculated based on NASCET criteria. COMPARISON: None available at the time of this dictation. FINDINGS: LEFT: Common femoral artery: Biphasic waveforms. Peak systolic velocity (PSV) 133 cm/s. Deep femoral artery: Triphasic waveforms. PSV 74.7 cm/s. Superficial femoral artery: Monophasic waveforms. PSV 200 cm/s. Popliteal artery: Monophasic waveforms. PSV 91.2 cm/s. Anterior tibial artery: Monophasic waveforms. PSV 127 cm/s. Posterior tibial artery: Monophasic waveforms. PSV 49.5 cm/s. Peroneal artery: Monophasic waveforms. PSV not measurable Dorsalis pedis: Monophasic waveforms. PSV 73.1 cm/s. Reference ranges: Normal Ankle/Brachial Index (BUSTER) 1.0-1.4; 0.91-0.99 borderline; < or = 0.9 abnormal (0.7-0.89 mild, 0.51-0.69 moderate, < or = 0.5 severe peripheral arterial disease). Normal Toe/Brachial Index (TBI) > or = 0.6; < 0.6 abnormal (0.34-0.59 mild, 0.12-0.34 moderate, < or = 0.11 severe peripheral arterial disease). IMPRESSION: Limited exam of the calf due to body habitus. Peripheral vascular disease is seen with monophasic waveforms in the lower extremity. Elevated velocities were noted in the superficial artery with diminished velocities distally. The left peroneal artery did not measurable flow. ACT 112: Negative or not required by law. Electronically signed by: Luis Armando Donnelly M.D. 04/04/2022 7:45 PM Discharge Plan Visit Data Chief Complaint: Leg Injury/Pain Stated Complaint: DR MERCADO FOR POSS BLOOD CLOT/SEPSIS IN L LEG ED Provider: Phuc Alonzo Discharge Problem: Left leg cellulitis, Diabetes, Diabetic ulcer of left fifth toe Patient Disposition: Admitted As Inpatient Discharge Instructions Interventions: ED Discharge Assessment Last Done: 04/04/22 19:42
[2022-04-04 17:41] LABS: Basophils # (auto) 0.08 K/uL (0-0.2); Basophils % (auto) 0.8 %; Eosinophils # (auto) 0.51 K/uL (0-0.5); Eosinophils % (auto) 5.3 %; Hematocrit (blood only) 34.1 % (37-47); Hemoglobin 11.2 g/dL (12.0-16.0); Immature Granulocytes # (auto) 0.06 K/uL (0.00-0.02); Immature Granulocytes % (auto) 0.6 %; Lymphocytes # (auto) 2.35 K/uL (1.2-3.4); Lymphocytes % (auto) 24.6 %; Mean Corpuscular Hemoglobin 28.6 pg (25-34); Mean Corpuscular Hgb Conc 32.8 g/dL (32-36); Mean Platelet Volume 9.2 fL (7.4-10.4); Monocytes % (auto) 13.6 %; Neutrophils # (auto) 5.25 K/uL (1.4-6.5); Neutrophils % (auto) 55.1 %; Platelet Count 483 K/uL (130-400); RDW Coefficient of Variation 17.1 % (11.5-14.5); RDW Standard Deviation 54.8 fL (36.4-46.3); Red Blood Count 3.92 M/uL (4.2-5.4); White Blood Count 9.55 K/uL (4.8-10.8)
[2022-04-04 17:49] LABS: INR 2.6 (0.9-1.1); Prothrombin Time 26.1 Seconds (9.0-12.0)
[2022-04-04 18:03] LABS: Albumin Globulin Ratio 0.8 (0.9-2); Albumin Level 3.5 gm/dl (3.4-5.0); BUN Creatinine Ratio 32.2 (10-20); Bilirubin,Total 0.7 mg/dl (0.2-1.0); C Reactive Protein 6.13 mg/dl (0-0.5); Calcium 9.1 mg/dl (8.5-10.1); Est GFR (African American) 72.5 ml/min; Est GFR (Non-African American) 62.5 ml/min; Globulin 4.2 gm/dl (2.5-4.0); Potassium 3.2 mmol/L (3.5-5.1); Total Protein 7.7 gm/dl (6.0-8.3)
[2022-04-04 18:09] LABS: Troponin I High Sensitivity 16.5 pg/ml (0-14)
--- NOTE | 2022-04-04 18:15 | XRay Report ---
XR chest 1V portable CLINICAL HISTORY: sob TECHNIQUE: Single frontal radiograph of the chest was obtained. Comparison: Comparison is made to chest radiograph 02/16/2022 FINDINGS: Median sternotomy wires are unchanged. Fractured wire is unchanged. The cardiomediastinal silhouette is stable. The lungs are clear. No evidence of pleural effusion or pneumothorax. IMPRESSION: No acute abnormalities and in particular no evidence of pneumonia. ACT 112: Negative or not required by law. Electronically signed by: Luis Armando Donnelly M.D. 04/04/2022 6:13 PM
--- NOTE | 2022-04-04 18:20 | XRay Report ---
XR foot LT min 3V routine CLINICAL HISTORY: infection?, L 5th toe wound TECHNIQUE: 3 views of the right foot were obtained. Comparison: Comparison is made to left foot radiographs 08/30/2020 FINDINGS: No evidence of bony erosion is seen. Severe degenerative changes are seen most prominent in the mid f oot. Diffuse osteopenia is seen. Soft tissue swelling is seen. There is an ulcer at the base of the f ifth digit. IMPRESSION: Soft tissue swelling compatible with cellulitis. An ulcer is in the fifth digit. No evidence of osteo myelitis. ACT 112: Negative or not required by law. Electronically signed by: Luis Armando Donnelly M.D. 04/04/2022 6:18 PM
[2022-04-04] MEDS ORDERED: CEFEPIME 2,000 MG/20 ML VIAL IV STA (18:32)
[2022-04-04] MEDS ORDERED: VANCOMYCIN CONSULT ACTIVE PRN (18:32)
[2022-04-04] MEDS ORDERED: VANCOMYCIN HCL 1,750 MG in SODIUM CHLORIDE 0.9% 500 ML IV ONE (18:32)
--- NOTE | 2022-04-04 18:44 | History & Physical Report ---
Date of Service April 04, 2022 Assessment & Plan (1) Left leg cellulitis: Plan: Originates from left 5th toe ulcer Continue vancomycin and cefepime Follow up wound and blood cultures - given prior bacteremia would recommend waiting 48 hours to make sure not bacteremic before discharge US arterial doppler as unclear why her ulcers are not healing since HbA1C 5.7 (2) Ulcer of toe of left foot: Plan: Consult wound care (3) Acute on chronic heart failure with preserved ejection fraction: Plan: She reports increased leg swelling recent although unsure if her weight is going up Switch her usual 4mg PO daily to Bumex 2mg IV BID - previous admissions she has had much better diuresis with equivalent IV doses. Low Na diet I&Os Daily weights (4) Anticoagulant long-term use: Plan: Continue her usual warfarin dosing 2.5mg every day, except 5mg on Wednesday INR 2.6 (5) History of Chris-en-Y gastric bypass: (6) Hx of aortic valve replacement, mechanical: Plan: INR goal 2.5-3.5 (7) Permanent atrial fibrillation: Plan: Continue metoprolol succinate 50mg PO BID Anticoagulation with warfarin (8) GERD (gastroesophageal reflux disease): Plan: Continue pantoprazole 40mg PO BID Plan: VTE Prophylaxis - warfarin Diet - heart healthy, low sodium Disposition - observation to med/surg Admission and Anticipated Discharge Date Admission Date: April 04, 2022 History of Present Illness Chief Complaint: Left lower extremity cellulitis Primary Care Provider: Fernie Rodriguez MD Eden Wagner is a 76 year old female with left leg pain and swelling. She reports noticing left leg erythema with associated swelling and pain for the last two days. Chills started on Wednesday but no objective fevers. She is currently in the process of moving to [place] to be closer to her son. While in [place] when she had the chills she called her PCP for lab work to be ordered who advise her to go to the ER. Instead she waited until she came back to [place] today to come to the ER here. On the journey She has chronic ulcers of both feet being managed by wound care. Leg erythema appeared to originate from her 5th toe ulcer on left leg. She also has a history of congestive heart failure and on prior admission has required IV diuresis to help with swelling which subsequently helps with wound healing. She is unsure whether her weight is up from her baseline but notes her legs are much more swollen than usual. She denies any chest pain, shortness of breath, orthopnea or PND. In the ER foot XR did not show any osteomyelitis. WBC 9.55. Given degree of cellulitis from her foot to above her left knee and previous bacteremia she was referred to medicine for admission and ongoing management of cellulitis. US venous doppler pending due to her calf pain although her INR has been therapeutic. Allergies Allergy/AdvReac Type Severity Reaction Status Date / Time iron [From Venofer] Allergy Severe VENOFER Verified 04/04/22 17:48 INFUSION-RASH,WEAKNESS,BLEEDING-HOSPITALIZED iron dextran complex Allergy Severe RASH Verified 04/04/22 17:48 choline salicylate Allergy Intermediate TRILISATE-r Verified 04/04/22 17:48 nay magnesium salicylate Allergy Intermediate TRILISATE-r Verified 04/04/22 17:48 nay mometasone furoate Allergy Unknown Pt has no Verified 04/04/22 17:48 recollection of this Home Medications Medication Instructions Recorded Confirmed Type multivitamin 1 tab PO QAM 05/06/20 04/04/22 History acetaminophen 500 mg capsule 1,000 mg PO DIRECTED PRN cap 03/04/21 04/04/22 History metoprolol succinate 50 mg 50 mg PO BID #180 tab 04/08/21 04/04/22 Rx tablet,extended release 24 hr warfarin 5 mg tablet 5 mg PO .COMPLEX #120 tab 04/15/21 04/04/22 Rx oxycodone-acetaminophen 5 mg-325 1 tab PO Q6H PRN #14 tab 12/05/21 04/04/22 Rx mg tablet (Percocet) tramadol 50 mg tablet 50 mg PO TID PRN #90 tab 01/02/22 04/04/22 Rx polyethylene glycol 3350 17 17 g PO DAILY PRN 02/10/22 04/04/22 History gram/dose oral powder (Miralax) bumetanide 1 mg tablet 4 mg PO QAM 02/16/22 04/04/22 History potassium chloride 20 mEq/15 mL See Rx Instructions .ROUTE .COMPLEX 02/16/22 04/04/22 History oral liquid BD Eclipse 25 gauge x 1" needle #3 ea NS 02/24/22 03/02/22 Rx (safety needles) cyanocobalamin (vitamin B-12) 1,000 mcg IM Q4WK #3 ml 02/24/22 04/04/22 Rx 1,000 mcg/mL injection solution pantoprazole 40 mg tablet,delayed 40 mg PO BID #60 tab 02/24/22 04/04/22 Rx release sucralfate 1 gram tablet 1 g PO TID #90 tab 02/24/22 04/04/22 Rx atorvastatin 20 mg tablet 20 mg PO QAM #90 tab 03/02/22 04/04/22 Rx metolazone 5 mg tablet 5 mg PO DIRECTED PRN 04/04/22 04/04/22 History Past Med/Surg History Medical History Abnormal CT scan, chest Acute blood loss anemia Anastomotic ulcer S/P gastric bypass ASCVD (arteriosclerotic cardiovascular disease) Carotid stenosis, asymptomatic left Carpal tunnel syndrome Cervical radiculopathy Chronic diastolic (congestive) heart failure Diabetic peripheral neuropathy associated with type 2 diabetes mellitus Elevated alkaline phosphatase level Esophageal candidiasis Eustachian tube dysfunction Hearing loss HTN (hypertension) Hyperlipidemia Hypertension USP (current) use 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 Mitral regurgitation Nontoxic multinodular goiter Obesity Obstructive sleep apnea Osteoporosis Pericardial effusion Permanent atrial fibrillation Personal history of diabetic foot ulcer Spinal stenosis, lumbar region with neurogenic claudication Severe L4-5 Vitamin B12 deficiency Vitamin D deficiency Surgical History H/O gastric bypass H/O hernia repair H/O splenectomy H/O splenectomy History of esophagogastroduodenoscopy (EGD) History of knee replacement bilateral History of total abdominal hysterectomy many years ago, fibroids, bleeding Hx of appendectomy Hx of cholecystectomy Hx of tonsillectomy S/P gastric bypass S/P pericardial window creation (2011) Status post panniculectomy Family History Mother Congestive heart failure Diabetes Hypertension Cardiac disorder Brother Diabetes Polycythemia Pharyngeal neoplasm Pulmonary embolism Father Lung cancer Acute myocardial infarction Hypertension Cardiac disorder Myocardial infarction Denies family history of Ovarian cancer Prostate cancer Crohn's disease Breast cancer Colorectal cancer Social History Smoking Status: Never smoker Second Hand Exposure: No; Hx Alcohol Use: Yes Alcohol type: hard liquor Alcohol type Comment: occassional mixed drink Hx Substance Use: No Preferred Language: Upper Sorbian Communication Ability: Effective Visual Impairment: No Limitations Hearing Ability: Normal Coordinator [employer] Required: No Beliefs That Will Affect Care: None marital status: Current Living Situation: Spouse and Family current occupational status: retired How many Children do You have: 1 Other Information That Helps Us Care for You: No Feels Safe at Home: Yes Safety Concerns: Feels Safe At This Time Childhood Exposure to Second-Hand Smoke: No Diet Comment: pt watches diet intake s/p gastric bypass surgery caffeine: Yes during the past year weight has: remained stable Dental Care, Regularly: Yes Physical Activity Frequency: 3-4 Times per Week Seatbelt Use: always Sunscreen Use: Yes Assistive Devices: Glasses Review of Systems Review of Systems: All systems reviewed & are unremarkable except as noted in HPI & below Physical Exam Constitutional: WD/WN, vitals as above Respiratory: normal respiratory effort, lungs clear to auscultation Cardiovascular: Rate/Rhythm: regular rate and regular rhythm Heart Sounds: + click Extremities: normal capillary refill and + pedal edema (L 2+ > R 1+) Gastrointestinal (Abdomen): Inspection/Auscultation: normal bowel sounds Pe rcussion/Palpation: abdomen soft; abdomen nontender, no guarding and abdomen not rigid Skin: + ulcer (left 5th toe) and + erythema (marked cellulitic area from just above left knee to 5th toe) Neurologic: moves all extremities and awake; not confused Psychiatric: A+Ox3, euthymic affect Results & Data Results & Data ([facility]) Vital Signs (Past 12 Hours) Vital Signs Temp Pulse Pulse Resp BP BP Pulse Ox 04/04/22 18:23 91 H 16 145/76 H 99 04/04/22 16:41 37.7 C H 106 H 16 138/76 96 Laboratory Results Abnormal lab results 04/04/22 04/04/22 04/04/22 Range/Units 17:27 17:27 17:27 RBC 3.92 L (4.2-5.4) M/uL Hgb 11.2 L (12.0-16.0) g/dL Hct 34.1 L (37-47) % RDW Std Deviation 54.8 H (36.4-46.3) fL RDW Coeff of Donald 17.1 H (11.5-14.5) % Plt Count 483 H (130-400) K/uL [place] # (Auto) 1.30 H (0.11-0.59) K/uL Eos # (Auto) 0.51 H (0-0.5) K/uL Immature Gran # (Auto) 0.06 H (0.00-0.02) K/uL ESR (0-30) mm/hr PT 26.1 H (9.0-12.0) Seconds INR 2.6 H (0.9-1.1) Potassium 3.2 L (3.5-5.1) mmol/L BUN 29 H (6-23) mg/dl BUN/Creatinine Ratio 32.2 H (10-20) Alkaline Phosphatase 154 H (34-104) U/L Troponin I High Sens 16.5 H (0-14) pg/ml C-Reactive Protein 6.13 H (0-0.5) mg/dl B-Natriuretic Peptide (0-100) pg/ml Globulin 4.2 H (2.5-4.0) gm/dl Albumin/Globulin Ratio 0.8 L (0.9-2) 04/04/22 04/04/22 Range/Units 17:27 17:27 RBC (4.2-5.4) M/uL Hgb (12.0-16.0) g/dL Hct (37-47) % RDW Std Deviation (36.4-46.3) fL RDW Coeff of Donald (11.5-14.5) % Plt Count (130-400) K/uL [place] # (Auto) (0.11-0.59) K/uL Eos # (Auto) (0-0.5) K/uL Immature Gran # (Auto) (0.00-0.02) K/uL ESR 92 H (0-30) mm/hr PT (9.0-12.0) Seconds INR (0.9-1.1) Potassium (3.5-5.1) mmol/L BUN (6-23) mg/dl BUN/Creatinine Ratio (10-20) Alkaline Phosphatase (34-104) U/L Troponin I High Sens (0-14) pg/ml C-Reactive Protein (0-0.5) mg/dl B-Natriuretic Peptide 246 H (0-100) pg/ml Globulin (2.5-4.0) gm/dl Albumin/Globulin Ratio (0.9-2) Diagnostic Findings XR foot LT min 3V routine CLINICAL HISTORY: infection?, L 5th toe wound TECHNIQUE: 3 views of the right foot were obtained. Comparison: Comparison is made to left foot radiographs 08/30/2020 FINDINGS: No evidence of bony erosion is seen. Severe degenerative changes are seen most prominent in the mid foot. Diffuse osteopenia is seen. Soft tissue swelling is seen. There is an ulcer at the base of the fifth digit. IMPRESSION: Soft tissue swelling compatible with cellulitis. An ulcer is in the fifth digit. No evidence of osteomyelitis. XR chest 1V portable CLINICAL HISTORY: sob TECHNIQUE: Single frontal radiograph of the chest was obtained. Comparison: Comparison is made to chest radiograph 02/16/2022 FINDINGS: Median sternotomy wires are unchanged. Fractured wire is unchanged. The cardiomediastinal silhouette is stable. The lungs are clear. No evidence of pleural effusion or pneumothorax. IMPRESSION: No acute abnormalities and in particular no evidence of pneumonia. Medications Administered ER Medications Given: Vancomycin 1750mg IV Cefepime 2g IV ECG Indication: other Rate (beats per minute): 90 Rhythm: atrial fibrillation Findings: + RBBB (incomplete) Comparison ECG Date: from (February 16, 2022) Change: the following changes noted (lower rate) Code Status & VTE Plan Code Status Full VTE Prophylaxis Plan VTE Prophylaxis will be ordered: Yes PG Care Time/CCT Total # of Minutes Spent Total Time Spent with Patient: Total time spent is greater than 50% in coordination of care (as documented) at patient's floor/unit and/or counseling patient: Coding Level of Care Code INT OBSERVATION CARE 70M LVL 3 Diagnoses Anticoagulant long-term use Z79.01 History of Chris-en-Y gastric bypass Z98.84 Hx of aortic valve replacement, mechanical Z95.2 Permanent atrial fibrillation I48.21 GERD (gastroesophageal reflux disease) K21.9 Left leg cellulitis L03.116 Ulcer of toe of left foot L97.529 Acute on chronic heart failure with preserved ejection fraction I50.33
--- NOTE | 2022-04-04 19:43 | Ultrasound Report ---
US venous doppler LE LT CLINICAL HISTORY: swelling, pain TECHNIQUE: Left lower extremity real-time compression venous ultrasound with Color Doppler imaging. U tilizing real-time ultrasonic imaging multiple real time high-resolution ultrasonic images with compr ession and noncompression maneuvers of the deep venous system in addition to color doppler imaging we re performed from the common femoral vein through the proximal calf veins. COMPARISON: Comparison is made to left lower extremity venous Doppler 02/16/2022 FINDINGS: Currently there is normal compressibility of the deep venous system from the common femoral vein thro ugh the proximal calf veins. No current evidence of acute thrombosis is identified. Incidental note i s made of a popliteal cyst measuring 7.4 x 3.6 x 2.9 cm. Impression: No evidence of deep venous thrombus. Redemonstration of Chance's cyst. ACT 112: Negative or not required by law. Electronically signed by: Luis Armando Donnelly M.D. 04/04/2022 7:41 PM
--- NOTE | 2022-04-04 19:47 | Ultrasound Report ---
US arterial duplex LE LT CLINICAL HISTORY: LLE cellulitis, non healing ulcer TECHNIQUE: Real-time grayscale and color and spectral Doppler ultrasound imaging of the bilateral low er extremity arteries was performed. Measurements calculated based on NASCET criteria. COMPARISON: None available at the time of this dictation. FINDINGS: LEFT: Common femoral artery: Biphasic waveforms. Peak systolic velocity (PSV) 133 cm/s. Deep femoral artery: Triphasic waveforms. PSV 74.7 cm/s. Superficial femoral artery: Monophasic waveforms. PSV 200 cm/s. Popliteal artery: Monophasic waveforms. PSV 91.2 cm/s. Anterior tibial artery: Monophasic waveforms. PSV 127 cm/s. Posterior tibial artery: Monophasic waveforms. PSV 49.5 cm/s. Peroneal artery: Monophasic waveforms. PSV not measurable Dorsalis pedis: Monophasic waveforms. PSV 73.1 cm/s. Reference ranges: Normal Ankle/Brachial Index (BUSTER) 1.0-1.4; 0.91-0.99 borderline; < or = 0.9 abnormal (0.7-0.89 mild, 0.51-0.69 moderate, < or = 0.5 severe peripheral arterial disease). Normal Toe/Brachial Index (TBI) > or = 0.6; < 0.6 abnormal (0.34-0.59 mild, 0.12-0.34 moderate, < or = 0.11 severe peripheral arterial disease). IMPRESSION: Limited exam of the calf due to body habitus. Peripheral vascular disease is seen with monophasic wav eforms in the lower extremity. Elevated velocities were noted in the superficial artery with diminish ed velocities distally. The left peroneal artery did not measurable flow. ACT 112: Negative or not required by law. Electronically signed by: Luis Armando Donnelly M.D. 04/04/2022 7:45 PM
[2022-04-04] MEDS ORDERED: oxyCODONE/ACETAMINOPHEN 5mg/325mg TAB PO PRN (20:21)
[2022-04-04] MEDS: ACETAMINOPHEN 325 MG TAB PO PRN (21:41)
[2022-04-04] MEDS: PANTOprazole 40 MG TAB PO SCH (21:42)
[2022-04-04] MEDS: SUCRALFATE 1 GM TAB PO SCH (21:43)
[2022-04-04] MEDS: METOPROLOL SUCC 50MG EXT REL TAB PO SCH (21:43)
[2022-04-05] MEDS: CEFEPIME 2,000 MG in SYRINGE 0 ML IV SCH ×3 (02:14→18:30)
[2022-04-05 02:19] LABS: Appearance Urine Clear (Clear); Bacteria Urine Automated Negative (Negative); Bilirubin Urine Negative (Negative); Blood Urine Negative (Negative); Color Urine Yellow; Epithelial Cell Urine Auto >30 /lpf (0-5); Glucose Urine UA Negative (Negative); Ketones Urine Negative (Negative); Leukocyte Esterase Urine 1+ (Negative); Nitrite Urine Positive (Negative); Protein Urine Negative (Negative); RBC Urine Automated 0-4 /hpf (0-4); Specific Gravity Urine 1.017 (1.000-1.030); Urobilinogen Urine Negative (Negative)
[2022-04-05] MEDS: VANCOMYCIN HCL 1,000 MG in SODIUM CHLORIDE 0.9% 250 ML IV SCH ×2 (07:38→20:11)
[2022-04-05] MEDS: METOPROLOL SUCC 50MG EXT REL TAB PO SCH ×2 (08:20→20:15)
[2022-04-05] MEDS: ATORVASTATIN 20 MG TAB PO SCH (08:20)
[2022-04-05] MEDS: MULTIVITAMIN TAB PO SCH (08:20)
[2022-04-05] MEDS: PANTOprazole 40 MG TAB PO SCH ×2 (08:21→20:16)
[2022-04-05] MEDS: SUCRALFATE 1 GM TAB PO SCH ×3 (08:21→20:16)
[2022-04-05] MEDS ORDERED: BUMETANIDE 1 MG TAB PO SCH (09:00)
[2022-04-05] MEDS: BUMETANIDE 2 MG in SYRINGE 0 ML IV SCH ×2 (09:08→16:17)
[2022-04-05 10:12] LABS: INR 2.2 (0.9-1.1); Prothrombin Time 22.5 Seconds (9.0-12.0)
[2022-04-05 10:20] LABS: Calcium 8.9 mg/dl (8.5-10.1); Creatinine Clr Calc Pharmacy 72.7 ml/min; Est GFR (African American) 81.1 ml/min; Magnesium 1.7 mg/dl (1.7-2.4); Potassium 2.8 mmol/L (3.5-5.1)
--- NOTE | 2022-04-05 10:21 | Electrocardiogram Report ---
Test Reason : Blood Pressure : / mmHG Vent. Rate : 090 BPM Atrial Rate : 093 BPM P-R Int : 000 ms QRS Dur : 100 ms QT Int : 398 ms P-R-T Axes : 000 -21 002 degrees QTc Int : 486 ms Atrial fibrillation Incomplete right bundle branch block Septal infarct (cited on or before 16-FEB-2022) Inferior infarct , age undetermined Abnormal ECG When compared with ECG of 16-FEB-2022 17:56, HR has imporved Confirmed by Ant Gil ([id number]) on 04/05/2022 10:21:31 AM Referred By: Fernie Rodriguez Confirmed By:Ant Gil
--- NOTE | 2022-04-05 11:24 | Pharmacy Report ---
Pharmacy Vanc AUC Short Note - Date of Service April 05, 2022 - Assessment & Plan Assessment * 76 year old F receiving cefepime and vancomycin for treatment of cellulitis 2nd L toe ulcer * PMH: recent Group B Strep bacteremia January 2022 * SCr stable and at/near baseline Vancomycin * AUC/YAMILA is the preferred PK/PD target for vancomycin * AUC guided dosing is effective and associated with decreased risk of nephrotoxicity compared to traditional trough targets * Target AUC/YAMILA of 400-600 mcg/mL/hr. Estimated AUC at current dose is 565 mcg/mL/hr, with approximate risk of nephrotoxicity 16% * Random levels can be used instead of troughs with AUC software - of note, the level tomorrow is a random level and NOT a trough level, therefore elevation >20 mcg/mL will not necessarily be alarming Plan * Continue vancomycin 1000 mg IV q12h * *Random* level with AM labs tomorrow Pharmacy will continue to follow and will adjust dose/frequency as necessary. Thank you.
[2022-04-05] MEDS: MAGNESIUM OXIDE 400 MG TAB PO SCH ×2 (14:04→20:15)
[2022-04-05] MEDS: POTASSIUM CHLORIDE 20 MEQ/15 ML UDC PO SCH ×2 (14:04→20:17)
[2022-04-05] MEDS ORDERED: WARFARIN SOD 2.5 MG TAB PO SCH (16:00)
[2022-04-05] MEDS ORDERED: FAMOTIDINE 20 MG in SYRINGE 3 ML IV ONE (19:00)
--- NOTE | 2022-04-05 22:14 | Hospitalist Progress Note ---
Date of Service April 05, 2022 Assessment & Plan (1) Left leg cellulitis: Plan: Recurrent. Had group B strep cellulitis with bacteremia in February. Now with staph. Cont vanco + cefepime; narrow the abx once final culture is back. Diurese. Arterial duplex study results of LLE noted - will consult Dr Grider to see if arteriogram is needed. Asplenic state, ?PAD, and DM all contributing to heightened infectious risk. Venous insufficiency also likely contributes to some degree as well. (2) Ulcer of toe of left foot: Plan: Consult wound care Consult Dr Grider from cardiology/vascular in light of arterial duplex study results Abx (3) PAD (peripheral artery disease): Plan: LLE arterial duplex worrisome for significant LLE PAD see above cont statin (4) Hypokalemia: Plan: start KCL 40meq TID cont mag supplementation 2nd to diuresis (5) Acquired asplenia: Plan: due to massive splenomegaly earlier in life, causing lung compromise per her recollection? (6) Acute on chronic heart failure with preserved ejection fraction: Plan: currently on 2mg IV BID of bumex mostly right-sided symptoms cont bumex IV for now but if we can't get electrolytes up may need to interrupt the diuresis (7) Anticoagulant long-term use: Plan: Continue her usual warfarin dosing 2.5mg every day, except 5mg on Wednesday daily INR if INR is <2.5 for lengthy period consider bridging but defer for now (8) History of Chris-en-Y gastric bypass: Plan: noted (9) Hx of aortic valve replacement, mechanical: Plan: INR goal 2.5-3.[address] Lee locally (10) Permanent atrial fibrillation: Plan: Continue metoprolol succinate 50mg PO BID Anticoagulation with warfarin daily INR (11) GERD (gastroesophageal reflux disease): Plan: Continue pantoprazole 40mg PO BID Continue carafate - increase to QID dosing due to stomach upset Plan: change observation status to full admission Admission and Anticipated Discharge Date Admission Date: April 05, 2022 Subjective pt without complaints today denies dyspnea feels like left leg erythema is modestly better than yesterday reports she & are moving to [place] soon to live near their son 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 in 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 we had lengthy discussion about her arterial duplex study she has seen Dr Grider in the past for vein work denies leg pains at rest later in the day she had episode of nausea followed by emesis Review of Systems Review of Systems: gen - no fevers or chills cv - no chest pain pulm - no dyspnea GI - no abd pain but did vomiting once today Physical Exam Physical Exam: gen - pleasant, NAD neck - JVD present, +hepatojugular reflex mouth - MMM heart - irregular, s1 s2, mech valve closure sound, 2/6 systolic murmur LLSB lungs - CTA b/l; no rales abd - soft NT ND BS+ ext - 2+ edema b/l - a little worse on left; pulses left foot 1-2+; cap refill about 2 sec L foot skin - L 5th toe ulcer about 2-3mm in size; diffuse erythema over left foot and portions of obrien extending to just below the left knee Results & Data Results & Data ([facility]) Vital Signs (Past 12 Hours) Vital Signs Temp Pulse Resp BP Pulse Ox 04/05/22 22:10 36.9 C 80 18 121/73 96 04/05/22 14:46 36.5 C 71 16 125/75 100 Laboratory Results Laboratory Results - last 24 hr 04/05/22 04/05/22 04/05/22 02:00 09:42 09:49 PT 22.5 H INR 2.2 H Sodium 137 Potassium 2.8 L Chloride 104 Carbon Dioxide 24 Anion Gap 9 BUN 23 Creatinine 0.82 Est Cr Clr Drug Dosing 72.7 Est GFR ( Amer) 81.1 Est GFR (Non-Af Amer) 70.0 BUN/Creatinine Ratio 28.0 H Glucose 153 H Calcium 8.9 Magnesium 1.7 Urine Color Yellow Urine Appearance Clear Urine pH 5.0 Ur Specific [place] 1.017 Urine Protein Negative Urine Glucose (UA) Negative Urine Ketones Negative Urine Blood Negative Urine Nitrite Positive A Urine Bilirubin Negative Urine Urobilinogen Negative Ur Leukocyte Esterase 1+ H Urine WBC (Auto) 10-30 H Urine RBC (Auto) 0-4 U Hyaline Cast (Auto) 1-5 U Epithel Cells (Auto) >30 H Urine Bacteria (Auto) Negative Diagnostic Findings wound cx, L foot - staph species blood cx's thus far negative PG Care Time/CCT Total # of Minutes Spent Total Time Spent with Patient: Total time spent is greater than 50% in coordination of care (as documented) at patient's floor/unit and/or counseling patient: Coding Level of Care Code 78991 Subseq Hosp Care Lvl 3 Diagnoses Left leg cellulitis L03.116 Ulcer of toe of left foot L97.529 Acute on chronic heart failure with preserved ejection fraction I50.33 Anticoagulant long-term use Z79.01 History of Chris-en-Y gastric bypass Z98.84 Hx of aortic valve replacement, mechanical Z95.2 Permanent atrial fibrillation I48.21 GERD (gastroesophageal reflux disease) K21.9 PAD (peripheral artery disease) I73.9 Hypokalemia E87.6 Acquired asplenia Z90.81
[2022-04-05] MEDS ORDERED: diphenhydrAMINE Capsule 25 MG CAP PO ONE (23:05)
[2022-04-06] MEDS: traMADol HCL 50 MG TABLET PO PRN (02:08)
[2022-04-06] MEDS: CEFEPIME 2,000 MG in SYRINGE 0 ML IV SCH (02:13)
[2022-04-06] MEDS: ONDANSETRON INJ 2 MG/ML 2 ML VIAL IV PRN (02:14)
[2022-04-06 06:16] LABS: INR 2.2 (0.9-1.1)
[2022-04-06 06:39] LABS: BUN Creatinine Ratio 25.3 (10-20); Calcium 8.7 mg/dl (8.5-10.1); Creatinine Clr Calc Pharmacy 68.5 ml/min; Est GFR (African American) 75.5 ml/min; Est GFR (Non-African American) 65.2 ml/min; Magnesium 1.7 mg/dl (1.7-2.4); Potassium 2.8 mmol/L (3.5-5.1)
[2022-04-06] MEDS ORDERED: VANCOMYCIN HCL 750 MG in SODIUM CHLORIDE 0.9% 250 ML IV SCH (08:00)
[2022-04-06] MEDS: BUMETANIDE 2 MG in SYRINGE 0 ML IV SCH (08:40)
[2022-04-06] MEDS: POTASSIUM CHLORIDE 20 MEQ/15 ML UDC PO SCH ×3 (08:41→20:38)
[2022-04-06] MEDS: ceFAZolin 2000MG 2,000 MG/15 ML SYR IV SCH ×2 (08:41→17:09)
[2022-04-06] MEDS: SUCRALFATE 1 GM TAB PO SCH ×4 (08:41→20:35)
[2022-04-06] MEDS: MAGNESIUM OXIDE 400 MG TAB PO SCH ×2 (08:42→20:33)
[2022-04-06] MEDS: PANTOprazole 40 MG TAB PO SCH ×2 (08:42→20:35)
[2022-04-06] MEDS: ATORVASTATIN 20 MG TAB PO SCH (08:42)
[2022-04-06] MEDS: MULTIVITAMIN TAB PO SCH (08:42)
[2022-04-06] MEDS: METOPROLOL SUCC 50MG EXT REL TAB PO SCH ×2 (08:42→20:36)
[2022-04-06] MEDS ORDERED: MAGNESIUM SULFATE / D5W 1 GM/100 ML BAG IV ONE (10:42)
[2022-04-06] MEDS: POTASSIUM CHLORIDE / WTR 10 MEQ/100 ML PLCT IV SCH ×2 (11:48→14:19)
[2022-04-06] MEDS ORDERED: hydrOXYzine HCl 25 MG TAB PO STA (12:04)
--- NOTE | 2022-04-06 12:09 | Hospitalist Progress Note ---
Date of Service April 06, 2022 Assessment & Plan (1) Left leg cellulitis: Plan: IMPROVED today. Recurrent. Had group B strep cellulitis with bacteremia in February. Now with staph aureus, MSSA. Stop IV vanco. Stop IV cefepime. Change to IV Ancef. Arterial duplex study results of LLE noted - Dr Grider consult pending to see if arteriogram is needed. Asplenic state, ?PAD, and DM all contributing to heightened infectious risk. Venous insufficiency also likely contributes to some degree as well. (2) Ulcer of toe of left foot: Plan: L 5th toe, dorsal surface. Cont IV antibiotics. Late in the day I spoke with Kylah Spaulding from wound care. She states the ulcer probes to the bone. I spoke with patient - she reports that because of her mechanical valves she cannot have MRI. Thus, will obtain CT foot w/ contrast to rule out osteomyelitis of L 5th toe. Await Dr Grider' consult re: ?PAD of LLE. (3) Rash: Plan: irritant/contact dermatitis vs candidal (groin portion only) vs other. this rash does not appear to be a drug reaction to any recent antibiotic. atarax 25mg po x 1 now then atarax 10mg TID prn thereafter triamcinolone cream 0.1% - TID to rash in thin amounts nystatin powder for rash in groin TID I rechecked the rash later in the day and it was markedly better with the antihistamines & steroid cream (4) PAD (peripheral artery disease): Plan: LLE arterial duplex worrisome for significant LLE PAD see above cont statin (5) Hypokalemia: Plan: ongoing due to high-dose bumex hold afternoon bumex dose today cont KCL 40meq TID give 2 K-riders (total 20meq) of IV KCL cont mag supplementation (6) Acquired asplenia: Plan: due to massive splenomegaly earlier in life, causing lung compromise per her recollection? (7) Acute on chronic heart failure with preserved ejection fraction: Plan: currently on 2mg IV BID of bumex mostly right-sided symptoms hold afternoon bumex dose since we cannot get her K level to be normal despite copious supplementation of K (8) Anticoagulant long-term use: Plan: Continue her usual warfarin dosing 2.5mg every day, except 5mg on Mondays daily INR if INR is <2.5 for lengthy period consider bridging but defer for now (9) History of Chris-en-Y gastric bypass: Plan: noted cont PPI bid cont carafate qid (10) Hx of aortic valve replacement, mechanical: Plan: INR goal 2.5-3.[address] Lee locally (11) Permanent atrial fibrillation: Plan: Continue metoprolol succinate 50mg PO BID Anticoagulation with warfarin daily INR (12) GERD (gastroesophageal reflux disease): Plan: Continue pantoprazole 40mg PO BID Continue carafate QID Plan: updated pt's , Claudy Wagner, this evening by phone Admission and Anticipated Discharge Date Admission Date: April 05, 2022 Subjective pt states that late last pm and overnight she developed "severe itch" in groin, the low back, buttocks region nothing on arms, legs, back or chest nothing on face she thinks the LLE cellulitis is improved denies dyspnea denies abd pain eating ok denies left foot pain Review of Systems Review of Systems: gen - no fevers or chills cv - no cp, no orthopnea; ongoing LE edema but improved today in her estimation GI - no nausea or emesis but did have emesis yesterday pulm - no cough Physical Exam Physical Exam: gen - pleasant, NAD neck - no JVD sitting upright 90degrees mouth - MMM heart - irregular, s1 s2, mech valve closure sound, 2/6 systolic murmur LLSB lungs - CTA b/l; no rales abd - soft NT ND BS+ ext - 1-2+ edema b/l - improved today; pulses left foot 1-2+; cap refill about 2 sec L foot skin - L 5th toe ulcer about 2-3mm in size; diffuse erythema over left foot and portions of obrien extending to just below the left knee is improved today erythematous rash on background of dry skin -- groin, low back, buttocks; no rash on arms, distal thighs, torso, chest, neck, face or hands no urticaria Results & Data Results & Data ([facility]) Vital Signs (Past 12 Hours) Vital Signs Temp Pulse Resp BP Pulse Ox 04/06/22 06:33 36.5 C 72 20 128/77 97 Laboratory Results Laboratory Results - last 24 hr 04/06/22 04/06/2222 05:26 05:26 05:26 PT 22.0 H INR 2.2 H Sodium 139 Potassium 2.8 L Chloride 103 Carbon Dioxide 27 Anion Gap 9 BUN 22 Creatinine 0.87 Est Cr Clr Drug Dosing 68.5 Est GFR ( Amer) 75.5 Est GFR (Non-Af Amer) 65.2 BUN/Creatinine Ratio 25.3 H Glucose 99 Calcium 8.7 Magnesium 1.7 Random Vancomycin 17.9 PG Care Time/CCT Total # of Minutes Spent Total Time Spent with Patient: Total time spent is greater than 50% in coordination of care (as documented) at patient's floor/unit and/or counseling patient: Coding Level of Care Code 91678 Subseq Hosp Care Lvl 3 Diagnoses Left leg cellulitis L03.116 Ulcer of toe of left foot L97.529 PAD (peripheral artery disease) I73.9 Hypokalemia E87.6 Acquired asplenia Z90.81 Acute on chronic heart failure with preserved ejection fraction I50.33 Anticoagulant long-term use Z79.01 History of Chris-en-Y gastric bypass Z98.84 Hx of aortic valve replacement, mechanical Z95.2 Permanent atrial fibrillation I48.21 GERD (gastroesophageal reflux disease) K21.9 Rash R21
[2022-04-06] MEDS: ADVANCED PROBIOTIC 1250 MG CAPSULE PO SCH (14:18)
[2022-04-06] MEDS: TRIAMCINOLONE ACET 0.1% CR 80 GM TUBE EXT SCH ×2 (14:35→20:46)
[2022-04-06] MEDS ORDERED: WARFARIN SOD 5 MG TAB PO SCH (16:00)
[2022-04-06] MEDS: NYSTATIN POWDER 15GM BTL EXT SCH ×2 (17:05→20:34)
[2022-04-06] MEDS ORDERED: hydrOXYzine HCl 10 MG TAB PO PRN (20:15)
--- NOTE | 2022-04-06 20:58 | Vascular Medicine Consultation ---
Date of Consultation April 06, 2022 Assessment & Plan (1) PAD (peripheral artery disease): 2. Left fifth digit ulcer. Recurrent neuropathic ulcers in the past 3. Left lower extremity cellulitis 4. Chronic venous insufficiencystatus post bilateral GSV RFA, right SSV VenaSeal 5. Chronic diastolic heart failure 6. Post mechanical AVR/MVR 7. Permanent atrial fibrillation on anticoagulation with warfarin 8. History of diabetes Patient admitted with left lower extremity cellulitis in the setting of recurrent neuropathic ulcers currently involving left fifth digit. Vascular consulted due to potential concern arterial insufficiency may be contributing to poor wound healing/recurrent ulcerations. Reviewed recent arterial duplex which shows borderline moderate stenosis in SFA and infrapopliteal monophasic waveforms. Of note patient had similar prior arterial studies most recently in 06/2020 at which time toe pressures adequate for wound healing. On exam left lower extremity appears reasonably perfused with 2+ DP pulse. Overall relatively low suspicion that arterial insufficiency is significant contributing to current wound. At this point suspect there is limited potential benefit from angiogram/revascularization. Will help confirm adequate perfusion pressure by obtaining repeat TBI/toe pressures. If toe pressures largely unchanged from prior studies can forego additional vascular testing. If reduced would consider angiogram. Angiogram complicated by need for uninterrupted anticoagulation with mechanical mitral valve. Further recommendations after TBI. Thank you for allowing us to participate in the care of this patient. Please contact with any questions. History of Present Illness Attending Physician: Tunde Arora History of Present Illness Mrs. Wagner is a very pleasant 76 year old female being seen today in hospital room due to lower extremity ulcer and suspected PAD. She is followed by Dr. Lee for her cardiac care. Medical history significant for [facility] mechanical MVR/AVR 2011 complicated by constrictive physiology required pericardial window (later in 2011), permanent atrial fibrillation (warfarin/metoprolol), and chronic diastolic congestive heart failure. She has a history of type 2 diabetes not on any oral therapy, last A1c 5.7. She also post gastric bypass surgery. She has a history of chronic venous insufficiency and is post bilateral GSV RFA 09/2017 and right SSV VenaSeal in 10/2021. Left AASV VenaSeal was attempted 11/2021 but aborted of AASV thrombus. She has had multiple neuropathic/diabetic foot ulcerations in the past Previous ulceration involving left plantar first metatarsal head 05/2020 which eventually healed with standard wound care, offloading. More recently has been dealing with pressure ulcerations involving her bilateral heels and left fifth toe. Admitted 04/04 with left lower extremity cellulitis. Recently traveling in preparation to move to [place] to be closer to her son. Prior to presentation several days of shaking chills. Progressive cellulitis extending from foot to above left knee initially on admit. Started on broad-spectrum antibiotics with significant improvement in lower extremity erythema. Foot x- ray with no evidence of osteo-. Blood cultures no growth. Wound culture from fifth toe growing MSSA. Prior arterial testing: Arterial duplex 03/2022: Left SFA PSV 200, monophasic waveforms distally throughout, JHOAN, W[employer]ER, DPA patent Lower extremity arterial duplex 06/2020: No evidence of significant arterial insufficiency. Tibials bilaterally with predominant monophasic flow. ABIs noncompressible, right TBi 0.83 (115 mmHg), left TBI 0.81 (112 mmHg). Arterial duplex 05/2019: No occlusive disease. TBI right 1.1, left 1.26 Social history: and lives with . No tobacco, alcohol or drug use. Allergies Allergy/AdvReac Type Severity Reaction Status Date / Time iron [From Venofer] Allergy Severe VENOFER Verified 04/04/22 17:48 INFUSION-RASH,WEAKNESS,BLEEDING-HOSPITALIZED iron dextran complex Allergy Severe RASH Verified 04/04/22 17:48 choline salicylate Allergy Intermediate TRILISATE-r Verified 04/04/22 17:48 nay magnesium salicylate Allergy Intermediate TRILISATE-r Verified 04/04/22 17:48 nay mometasone furoate Allergy Unknown Pt has no Verified 04/04/22 17:48 recollection of this Home Medications Medication Instructions Recorded Confirmed Type multivitamin 1 tab PO QAM 05/06/20 04/04/22 History acetaminophen 500 mg capsule 1,000 mg PO DIRECTED PRN cap 03/04/21 04/04/22 History metoprolol succinate 50 mg 50 mg PO BID #180 tab 04/08/21 04/04/22 Rx tablet,extended release 24 hr warfarin 5 mg tablet 5 mg PO .COMPLEX #120 tab 04/15/21 04/04/22 Rx oxycodone-acetaminophen 5 mg-325 1 tab PO Q6H PRN #14 tab 12/05/21 04/04/22 Rx mg tablet (Percocet) tramadol 50 mg tablet 50 mg PO TID PRN #90 tab 01/02/22 04/04/22 Rx polyethylene glycol 3350 17 17 g PO DAILY PRN 02/10/22 04/04/22 History gram/dose oral powder (Miralax) bumetanide 1 mg tablet 4 mg PO QAM 02/16/22 04/04/22 History potassium chloride 20 mEq/15 mL See Rx Instructions .ROUTE .COMPLEX 02/16/22 04/04/22 History oral liquid BD Eclipse 25 gauge x 1" needle #3 ea NS 02/24/22 03/02/22 Rx (safety needles) cyanocobalamin (vitamin B-12) 1,000 mcg IM Q4WK #3 ml 02/24/22 04/04/22 Rx 1,000 mcg/mL injection solution pantoprazole 40 mg tablet,delayed 40 mg PO BID #60 tab 02/24/22 04/04/22 Rx release sucralfate 1 gram tablet 1 g PO TID #90 tab 02/24/22 04/04/22 Rx atorvastatin 20 mg tablet 20 mg PO QAM #90 tab 03/02/22 04/04/22 Rx metolazone 5 mg tablet 5 mg PO DIRECTED PRN 04/04/22 04/04/22 History Patient History Medical History Abnormal CT scan, chest Acute blood loss anemia Anastomotic ulcer S/P gastric bypass ASCVD (arteriosclerotic cardiovascular disease) Carotid stenosis, asymptomatic left Carpal tunnel syndrome Cervical radiculopathy Chronic diastolic (congestive) heart failure Diabetic peripheral neuropathy associated with type 2 diabetes mellitus Elevated alkaline phosphatase level Esophageal candidiasis Eustachian tube dysfunction Hearing loss HTN (hypertension) Hyperlipidemia 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 Mitral regurgitation Nontoxic multinodular goiter Obesity Obstructive sleep apnea Osteoporosis Pericardial effusion Permanent atrial fibrillation Personal history of diabetic foot ulcer Spinal stenosis, lumbar region with neurogenic claudication Severe L4-5 Vitamin B12 deficiency Vitamin D deficiency Surgical History H/O gastric bypass H/O hernia repair H/O splenectomy H/O splenectomy History of esophagogastroduodenoscopy (EGD) History of knee replacement bilateral History of total abdominal hysterectomy many years ago, fibroids, bleeding Hx of appendectomy Hx of cholecystectomy Hx of tonsillectomy S/P gastric bypass S/P pericardial window creation (2011) Status post panniculectomy Family History Mother Congestive heart failure Diabetes Hypertension Cardiac disorder Brother Diabetes Polycythemia Pharyngeal neoplasm Pulmonary embolism Father Lung cancer Acute myocardial infarction Hypertension Cardiac disorder Myocardial infarction Denies family history of Ovarian cancer Prostate cancer Crohn's disease Breast cancer Colorectal cancer Social History Smoking Status: Never smoker Second Hand Exposure: No; Hx Alcohol Use: Yes Alcohol type: hard liquor Alcohol type Comment: occassional mixed drink Hx Substance Use: No Preferred Language: Turkmen Communication Ability: Effective Visual Impairment: No Limitations Hearing Ability: Normal Nurse Reviewer Required: No Beliefs That Will Affect Care: None marital status: Current Living Situation: Spouse and Family current occupational status: retired How many Children do You have: 1 Other Information That Helps Us Care for You: No Feels Safe at Home: Yes Safety Concerns: Feels Safe At This Time Childhood Exposure to Second-Hand Smoke: No Diet Comment: pt watches diet intake s/p gastric bypass surgery caffeine: Yes during the past year weight has: remained stable Dental Care, Regularly: Yes Physical Activity Frequency: 3-4 Times per Week Seatbelt Use: always Sunscreen Use: Yes Assistive Devices: Cane and Walker Review of Systems Review of Systems: All systems reviewed & are unremarkable except as noted in HPI & below Physical Exam Physical Exam: General: No acute distress, comfortable. HEENT: Head is normal. Sclerae anicteric. Lungs: Clear to auscultation bilaterally without rales, rhonchi or wheezes. Cardiac: Irregularly irregular crisp aortic, mitral mechanical closure Extremities/vascular: -- Well perfused. 1+ right lower extremity, 1-2+ left lower extremity --Radial 1+ bilaterally --DP 2+ bilaterally, diminished DP pulses bilaterally -- Sluggish capillary refill bilaterally -- Fifth toe ulcer, recent wound images reviewed --Hyperpigmentation distal shins bilaterally Neurologic: Nonfocal Psychiatric: Affect appropriate. Alert and oriented. Results & Data ([facility]) Vital Signs (Past 12 Hours) Vital Signs Temp Pulse Resp BP Pulse Ox 04/06/22 15:18 98.1 F 70 17 116/71 99 PG Care Time/CCT Total # of Minutes Spent Total Time Spent with Patient: Total time spent is greater than 50% in coordination of care (as documented) at patient's floor/unit and/or counseling patient: Coding Level of Care Code 61162 Initial Inpt Care Lvl 3 Diagnoses PAD (peripheral artery disease) I73.9
[2022-04-06] MEDS ORDERED: hydrOXYzine HCl 10 MG TAB PO SCH (21:00)
[2022-04-07] MEDS: ceFAZolin 2000MG 2,000 MG/15 ML SYR IV SCH ×4 (00:29→23:53)
[2022-04-07 06:23] LABS: Creatinine Clr Calc Pharmacy 66.2 ml/min; Est GFR (African American) 72.5 ml/min; Est GFR (Non-African American) 62.5 ml/min
[2022-04-07 07:08] LABS: INR 2.2 (0.9-1.1); Prothrombin Time 22.1 Seconds (9.0-12.0)
[2022-04-07 07:28] LABS: BUN Creatinine Ratio 22.3 (10-20); C Reactive Protein 1.65 mg/dl (0-0.5); Calcium 8.9 mg/dl (8.5-10.1); Creatinine Clr Calc Pharmacy 63.4 ml/min; Est GFR (African American) 68.8 ml/min; Est GFR (Non-African American) 59.3 ml/min; Magnesium 2.1 mg/dl (1.7-2.4); Potassium 3.7 mmol/L (3.5-5.1)
[2022-04-07] MEDS: MULTIVITAMIN TAB PO SCH (08:18)
[2022-04-07] MEDS: METOPROLOL SUCC 50MG EXT REL TAB PO SCH ×2 (08:18→21:06)
[2022-04-07] MEDS: ATORVASTATIN 20 MG TAB PO SCH (08:18)
[2022-04-07] MEDS: ADVANCED PROBIOTIC 1250 MG CAPSULE PO SCH (08:18)
[2022-04-07] MEDS: SUCRALFATE 1 GM TAB PO SCH ×4 (08:18→21:17)
[2022-04-07] MEDS: MAGNESIUM OXIDE 400 MG TAB PO SCH ×2 (08:18→21:05)
[2022-04-07] MEDS: PANTOprazole 40 MG TAB PO SCH ×2 (08:18→21:06)
[2022-04-07] MEDS: NYSTATIN POWDER 15GM BTL EXT SCH ×3 (08:19→21:02)
[2022-04-07] MEDS: POTASSIUM CHLORIDE 20 MEQ/15 ML UDC PO SCH ×3 (08:19→21:16)
--- NOTE | 2022-04-07 08:42 | Ultrasound Report ---
US ankle/brachial index ltd CLINICAL HISTORY: please get toe pressures/TBI COMPARISON STUDY: Left lower extremity arterial Doppler ultrasound April 04, 2022. TECHNIQUE: Bilateral ankle to brachial indices were attempted. These could not be obtained due to non compressibility of the vessels. Toe to brachial indices were obtained. FINDINGS: Ankle to brachial indices could not be obtained due to vessel noncompressibility. The right toe to brachial index was 1.29. The left toe to brachial index was 1.44. Waveforms within the right great toe were slightly dampened. IMPRESSION: 1. Ankle to brachial indices could not be obtained given vessel noncompressibility. 2. Normal bilateral toe to brachial indices, as described above. ACT 112: Negative or not required by law. Electronically signed by: Naun Finley M.D. 04/07/2022 8:40 AM
--- NOTE | 2022-04-07 09:14 | CT Scan Report ---
CT SCAN OF THE LEFT FOOT WITH IV CONTRAST CLINICAL HISTORY: Fifth toe ulcer. COMPARISON STUDY: Radiographs of left foot dated 04/04/2022. CT scan of the left foot dated 01/14/2022. TECHNIQUE: Following the administration of 93 cc of optiray 320, CT scan of the left foot is performe d from the ankle to the base of the foot. Images are reviewed in the axial, sagittal, and coronal audie erika. IV contrast was administered without complication. A dose lowering technique was utilized adhering to the principles of ALARA. CT DOSE: 230.82 mGy.cm FINDINGS: The skeletal structures are osteopenic. No acute fracture is identified. Erosive change is seen involving the lateral distal shaft and head of the fifth proximal phalanx (axial image #240). Th is is typical for osteomyelitis. No additional foci of bony erosion are identified typical for osteom yelitis. Moderate to advanced osteoarthritic erosive osteoarthritis is seen at the first metatarsopha langeal joint. Moderate to advanced arthritic change is also seen in the midfoot. There are numerous hammertoe deformities, with subluxation at several proximal interphalangeal joints. There is diffuse dermal thickening and soft tissue edema identified throughout the foot, greatest overlying the fifth toe. A cutaneous ulceration is seen in the fifth toe. There is loculated fluid around the distal aspe ct of the fifth proximal phalanx which could represent septic arthritis at the fifth proximal interph alangeal joint versus a small surrounding abscess. This measures at least 12 mm in maximum dimension as seen on axial image #199. No additional fluid collection is suggested throughout the foot. There i s diffuse atrophy of the regional musculature. The Achilles tendon is intact as visualized. Atheroscl erotic plaque is noted in the regional arteries. The dorsalis pedis artery appears patent. IMPRESSION: 1. There is erosive change involving the fifth proximal phalanx as above. This is typical for osteomy elitis 2. There is loculated fluid around the fifth proximal phalanx at the proximal interphalangeal joint, likely resenting septic arthritis versus a tiny abscess. 3. There is cellulitis throughout the foot, greatest in the fifth toe with evidence of a cutaneous ul ceration. 4. Osteopenia and degenerative change as above. ACT 112: Negative or not required by law. Dictated: 04/07/2022 8:12 AM Transcribed: 04/07/2022 8:58 AM Ros [id number] CLEMENT_Brooks Electronically signed by: Albert Pettit M.D. 04/07/2022 9:12 AM
[2022-04-07] MEDS: TRIAMCINOLONE ACET 0.1% CR 80 GM TUBE EXT SCH ×3 (10:37→21:18)
--- NOTE | 2022-04-07 13:10 | Hospitalist Progress Note ---
Date of Service April 07, 2022 Assessment & Plan (1) Left leg cellulitis: Plan: now resolved it seems, but with toe wound and left fifth toe OM as noted on CT foot Recurrent. Had group B strep cellulitis with bacteremia in February. Now with staph aureus, MSSA growing from wound. initially received IV vanco and IV cefepime. Changed to IV Ancef on 04/06 Arterial duplex study results of LLE noted - Dr. Grider of Interventional Vascular saw her and ordered TBI which was normal-there is adequate blood flow and no intervention needed Asplenic state, ?PAD, and DM all contributing to heightened infectious risk. Venous insufficiency also likely contributes to some degree as well. (2) Ulcer of toe of left foot: Plan: L 5th toe, dorsal surface. With OM of prox phalanx on CT foot as well as septic arthritis vs abscess of toe Cont IV antibiotics. WOund care states the ulcer probes to the bone. Pt reports that because of her mechanical valves she cannot have MRI. -consult Ortho to see about need for debridement vs amputation If needs surgery, would need to reverse INR and bridge with Lovenox or heparin gtt Also would have her Dependency Case Manager, Dr. Lee, weight in on preop assessment (3) Osteomyelitis of toe of left foot: (4) Rash: Plan: irritant/contact dermatitis vs candidal (groin portion only) vs other. this rash does not appear to be a drug reaction to any recent antibiotic. It is now completely resolved with antihistamines and topical triamcinolone continue atarax 10mg TID prn thereafter triamcinolone cream 0.1% - TID to rash in thin amounts nystatin powder for rash in groin TID (5) PAD (peripheral artery disease): Plan: LLE arterial duplex worrisome for significant LLE PAD with normal TBI appreciate Vascular opinion, no intervention needed cont statin (6) Hypokalemia: Plan: now improved due to high-dose bumex continue to hold bumex but can likely restart tomorrow cont KCL 40meq TID cont mag supplementation (7) Acquired asplenia: Plan: due to massive splenomegaly earlier in life, causing lung compromise per her recollection? (8) Acute on chronic heart failure with preserved ejection fraction: Plan: was on 2mg IV BID of bumex which is now on hold mostly right-sided symptoms restart home po bumex tomorrow (9) Anticoagulant long-term use: Plan: Continue her usual warfarin dosing 2.5mg every day, except 5mg on Mondays daily INR-still subtherapeutic today at 2.2 however may need surgery-won't increase dose for now if INR is <2.5 for lengthy period consider bridging but defer for now (10) History of Chris-en-Y gastric bypass: Plan: noted cont PPI bid cont carafate qid (11) Hx of aortic valve replacement, mechanical: Plan: has both MVR and AVR mechanical INR goal 2.5-3.[address] Lee locally (12) Permanent atrial fibrillation: Plan: rate controlled Continue metoprolol succinate 50mg PO BID Anticoagulation with warfarin daily INR (13) GERD (gastroesophageal reflux disease): Plan: Continue pantoprazole 40mg PO BID Continue carafate QID Plan: Dispo-continued stay Admission and Anticipated Discharge Date Admission Date: April 05, 2022 Subjective Denies pain in foot but cites neuropathy as cause of no sensation. Otherwise eating and drinking well, getting around better, remains afebrile. No CP or SOB Review of Systems Review of Systems: All systems reviewed & are unremarkable except as noted in HPI & below Physical Exam Constitutional: WD/WN, vitals as above Eyes: + anicteric sclerae Neck: trachea midline, no thyromegaly Respiratory: normal respiratory effort, lungs clear to auscultation Cardiovascular: Rate/Rhythm: regular rate and + irregularly irregular Heart Sounds: + click Gastrointestinal (Abdomen): normal bowel sounds, soft, nontender, no hepatosplenomegaly Musculoskeletal: Extremities: + extremities abnormal to inspection (left fifth toe edematous,draining purulent material,macerated ulcer), no cyanosis and no clubbing Skin: no erythema left leg no rash on waist or buttocks, just a few excoriation scabs Neurologic: moves all extremities and awake; no focal motor deficits Psychiatric: A+Ox3, euthymic affect Lymphatic: no lymphedema Results & Data Results & Data ([facility]) Vital Signs (Past 12 Hours) Vital Signs Temp Pulse Resp BP Pulse Ox 04/07/22 07:10 36.9 C 81 16 122/74 96 Laboratory Results 04/07/22 04/07/22 04/07/22 Range/Units 06:51 06:51 05:27 PT 22.1 H (9.0-12.0) Seconds INR 2.2 H (0.9-1.1) Sodium 137 (136-145) mmol/L Potassium 3.7 D (3.5-5.1) mmol/L Chloride 104 (98-107) mmol/L Carbon Dioxide 27 (21-32) mmol/L Anion Gap 6 (3-11) BUN 21 (6-23) mg/dl Creatinine 0.94 0.90 (0.6-1.2) mg/dl Est Cr Clr Drug Dosing 63.4 66.2 ml/min Est GFR ( Amer) 68.8 72.5 ml/min Est GFR (Non-Af Amer) 59.3 62.5 ml/min BUN/Creatinine Ratio 22.3 H (10-20) Glucose 87 (70-99(Fasting)) mg/dl Calcium 8.9 (8.5-10.1) mg/dl Magnesium 2.1 (1.7-2.4) mg/dl C-Reactive Protein 1.65 H (0-0.5) mg/dl PG Care Time/CCT Total # of Minutes Spent Total Time Spent with Patient: Total time spent is greater than 50% in coordination of care (as documented) at patient's floor/unit and/or counseling patient: Coding Level of Care Code 74060 Subseq Hosp Care Lvl 3 Diagnoses Left leg cellulitis L03.116 Ulcer of toe of left foot L97.529 Rash R21 PAD (peripheral artery disease) I73.9 Hypokalemia E87.6 Acquired asplenia Z90.81 Acute on chronic heart failure with preserved ejection fraction I50.33 Anticoagulant long-term use Z79.01 History of Chris-en-Y gastric bypass Z98.84 Hx of aortic valve replacement, mechanical Z95.2 Permanent atrial fibrillation I48.21 GERD (gastroesophageal reflux disease) K21.9 Osteomyelitis of toe of left foot M86.9
[2022-04-07] MEDS: ONDANSETRON INJ 2 MG/ML 2 ML VIAL IV PRN (13:20)
--- NOTE | 2022-04-07 15:19 | Orthopedic Consultation ---
Date of Consultation April 07, 2022 Assessment & Plan (1) Osteomyelitis of toe of left foot: 76-year-old white female with significant past medical history with an infected left fifth toe ulcer with likely osteomyelitis of the proximal phalanx. This will likely need an irrigation and debridement at minimum with the possibility of amputation of the fifth toe. Patient is unable to have MRI secondary to mechanical valve. He is also on chronic Coumadin and current INR is 2.2. Patient has been seen by Dr. Grider who is taking care of her for her PAD in the past. Nothing further is planned at this time and he feels she has adequate blood flow to the foot for any type of surgery that may need done. I will discuss the case with Dr. Toscano and tentatively add her case on to his schedule tomorrow. I have spoken to Dr. Marrufo who is planning on starting the patient on heparin drip. Pending Dr. Toscano's input, she will try to lower the INR as best as possible while continuing the heparin. Heparin will need to be off 4 to 6 hours prior to surgery if the surgery is planned for tomorrow. History of Present Illness Reason for Consultation: Infection left fifth toe Attending Physician: Katy Marrufo MD History of Present Illness Patient is a 76-year-old female with PMH of PAD, chronic venous insufficiency status post bilateral GSV RFA, Right SSV Venaseal, chronic diastolic heart failure mechanical AVR/MVR, atrial fibrillation on anticoagulation with warfarin, diabetes mellitus 2, hypertension, hyperlipidemia, GERD, who states that she began having a blister on the top of the left fifth toe of which she felt was secondary to rubbing on her shoes. At times it would get better and other times it would get worse. She states that it has been draining off and on since it started. The patient states that she normally feels chilled most the time however at 1 point she had shaking chills where her teeth were chattering. This was last Wednesday. She is unsure if she was running a fever because she did not have a thermometer at the time. She was at the time, in [place] visiting her son. They are currently trying to move to [place] to be closer to him. She called her primary care physician to see if she can get some lab work sent into one of the local hospitals and he advised her to go to the emergency room. She chose to wait and came back to [place]. She developed a cellulitis of the left lower extremity she states went all the way up to her thigh. She came into the emergency room and was seen by the staff. She was thusly admitted by the hospitalist service and started on IV antibiotics. Wound care was consulted and continue to care for her left fifth toe ulcer. CT scan was ordered of the left fifth toe which showed a likely fluid collection around the proximal phalanx of the fifth toe with also some erosions noted on the phalanx of the fifth toe. Patient is unable to have an MRI secondary to mechanical heart valve. We have been asked to see her for her left fifth toe infection. Allergies Allergy/AdvReac Type Severity Reaction Status Date / Time iron [From Venofer] Allergy Severe VENOFER Verified 04/04/22 17:48 INFUSION-RASH,WEAKNESS,BLEEDING-HOSPITALIZED iron dextran complex Allergy Severe RASH Verified 04/04/22 17:48 choline salicylate Allergy Intermediate TRILISATE-r Verified 04/04/22 17:48 nay magnesium salicylate Allergy Intermediate TRILISATE-r Verified 04/04/22 17:48 nay mometasone furoate Allergy Unknown Pt has no Verified 04/04/22 17:48 recollection of this Home Medications Medication Instructions Recorded Confirmed Type multivitamin 1 tab PO QAM 05/06/20 04/04/22 History acetaminophen 500 mg capsule 1,000 mg PO DIRECTED PRN cap 03/04/21 04/04/22 History metoprolol succinate 50 mg 50 mg PO BID #180 tab 04/08/21 04/04/22 Rx tablet,extended release 24 hr warfarin 5 mg tablet 5 mg PO .COMPLEX #120 tab 04/15/21 04/04/22 Rx oxycodone-acetaminophen 5 mg-325 1 tab PO Q6H PRN #14 tab 12/05/21 04/04/22 Rx mg tablet (Percocet) tramadol 50 mg tablet 50 mg PO TID PRN #90 tab 01/02/22 04/04/22 Rx polyethylene glycol 3350 17 17 g PO DAILY PRN 02/10/22 04/04/22 History gram/dose oral powder (Miralax) bumetanide 1 mg tablet 4 mg PO QAM 02/16/22 04/04/22 History potassium chloride 20 mEq/15 mL See Rx Instructions .ROUTE .COMPLEX 03/28/22 05/14/22 History oral liquid BD Eclipse 25 gauge x 1" needle #3 ea NS 02/24/22 03/02/22 Rx (safety needles) cyanocobalamin (vitamin B-12) 1,000 mcg IM Q4WK #3 ml 02/24/22 04/04/22 Rx 1,000 mcg/mL injection solution pantoprazole 40 mg tablet,delayed 40 mg PO BID #60 tab 02/24/22 04/04/22 Rx release sucralfate 1 gram tablet 1 g PO TID #90 tab 02/24/22 04/04/22 Rx atorvastatin 20 mg tablet 20 mg PO QAM #90 tab 03/02/22 04/04/22 Rx metolazone 5 mg tablet 5 mg PO DIRECTED PRN 04/04/22 04/04/22 History Patient History Medical History Abnormal CT scan, chest Acute blood loss anemia Anastomotic ulcer S/P gastric bypass ASCVD (arteriosclerotic cardiovascular disease) Carotid stenosis, asymptomatic left Carpal tunnel syndrome Cervical radiculopathy Chronic diastolic (congestive) heart failure Diabetic peripheral neuropathy associated with type 2 diabetes mellitus Elevated alkaline phosphatase level Esophageal candidiasis Eustachian tube dysfunction Hearing loss HTN (hypertension) Hyperlipidemia 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 Mitral regurgitation Nontoxic multinodular goiter Obesity Obstructive sleep apnea Osteoporosis Pericardial effusion Permanent atrial fibrillation Personal history of diabetic foot ulcer Spinal stenosis, lumbar region with neurogenic claudication Severe L4-5 Vitamin B12 deficiency Vitamin D deficiency Surgical History H/O gastric bypass H/O hernia repair H/O splenectomy H/O splenectomy History of esophagogastroduodenoscopy (EGD) History of knee replacement bilateral History of total abdominal hysterectomy many years ago, fibroids, bleeding Hx of appendectomy Hx of cholecystectomy Hx of tonsillectomy S/P gastric bypass S/P pericardial window creation (2011) Status post panniculectomy Family History Mother Congestive heart failure Diabetes Hypertension Cardiac disorder Brother Diabetes Polycythemia Pharyngeal neoplasm Pulmonary embolism Father Lung cancer Acute myocardial infarction Hypertension Cardiac disorder Myocardial infarction Denies family history of Ovarian cancer Prostate cancer Crohn's disease Breast cancer Colorectal cancer Social History Smoking Status: Never smoker Second Hand Exposure: No; Hx Alcohol Use: Yes Alcohol type: hard liquor Alcohol type Comment: occassional mixed drink Hx Substance Use: No Preferred Language: [place]ese Communication Ability: Effective Visual Impairment: No Limitations Hearing Ability: Normal Engineering Recruiter Required: No Beliefs That Will Affect Care: None marital status: Current Living Situation: Spouse and Family current occupational status: retired How many Children do You have: 1 Other Information That Helps Us Care for You: No Feels Safe at Home: Yes Safety Concerns: Feels Safe At This Time Childhood Exposure to Second-Hand Smoke: No Diet Comment: pt watches diet intake s/p gastric bypass surgery caffeine: Yes during the past year weight has: remained stable Dental Care, Regularly: Yes Physical Activity Frequency: 3-4 Times per Week Seatbelt Use: always Sunscreen Use: Yes Assistive Devices: Cane and Walker Physical Exam Physical Exam: On examination, the patient is a 76-year-old white female who appears her stated age. She is alert and oriented x3. No acute distress. Pleasant and cooperative. On examination of her left lower extremity, there are gomez from a pen where her cellulitis had extended. The cellulitis is markedly improved. She continues to have some mild cellulitis around the left fifth toe but a good portion of the cellulitis on the lower extremity is resolved. He has an Optifoam dressing over the left fifth toe. This is removed. This reveals a soaked Aquacel gauze. This is removed. She has a small ulceration on the dorsum of her left fifth toe appears to be over the DIP joint. Reviewing a picture of the wound upon earlier admission, the wound now looks a little worsened and a little larger as far as the opening. She has moderate maceration around the skin edges from her drainage. She has a thickened type of drainage that appears purulent. There is no foul odor. There is cellulitis around the left toe all the way up to MTP joint. She has a dense neuropathy of both of her feet which she has had in a long time. She has moderate edema on the dorsum of the foot. Capillary refill appears to be around 2 seconds. With the patient's diffuse edema, I cannot appreciate a dorsalis pedis pulse. Optifoam dressing replaced with a new piece of Aquacel Ag on the wound. Results & Data ([facility]) Vital Signs (Past 12 Hours) Vital Signs Temp Pulse Resp BP Pulse Ox 04/07/22 07:10 36.9 C 81 16 122/74 96 Diagnostic Findings Patient:ADRIAN COY Admit Date:04/05/22 MR#:[id number] Address1:[address] [place] [address] Acct ID:[id number] Address2: Date:1945 [facility] Zip:[place] [address] Age:76 Location: Sex:F Room/Bed:[facility] Att Phy:Katy Marrufo MD Diagnosis:CELLULITIS Melissa Phy:Fernie Rodriguez MD Service Date:04/06/22 Fam Phy: Interpreting Phy:Albert Pettit MDAdmit Phy:Tunde Hester MD Ordering Phy:Tunde Arora MD cc: ~ CT SCAN OF THE LEFT FOOT WITH IV CONTRAST CLINICAL HISTORY: Fifth toe ulcer. COMPARISON STUDY: Radiographs of left foot dated 04/04/2022. CT scan of the left foot dated 01/14/2022. TECHNIQUE: Following the administration of 93 cc of optiray 320, CT scan of the left foot is performed from the ankle to the base of the foot. Images are reviewed in the axial, sagittal, and coronal planes. IV contrast was administered without complication. A dose lowering technique was utilized adhering to the principles of ALARA. CT DOSE: 230.82 mGy.cm FINDINGS: The skeletal structures are osteopenic. No acute fracture is identified. Erosive change is seen involving the lateral distal shaft and head of the fifth proximal phalanx (axial image #240). This is typical for osteomyelitis. No additional foci of bony erosion are identified typical for ost eomyelitis. Moderate to advanced osteoarthritic erosive osteoarthritis is seen at the first metatarsophalangeal joint. Moderate to advanced arthritic change is also seen in the midfoot. There are numerous hammertoe deformities, with subluxation at several proximal interphalangeal joints. There is diffuse dermal thickening and soft tissue edema identified throughout the foot, greatest overlying the fifth toe. A cutaneous ulceration is seen in the fifth toe. There is loculated fluid around the distal aspect of the fifth proximal phalanx which could represent septic arthritis at the fifth proximal interphalangeal joint versus a small surrounding abscess. This measures at least 12 mm in maximum dimension as seen on axial image #199. No additional fluid collection is suggested throughout the foot. There is diffuse atrophy of the regional musculature. The Achilles tendon is intact as visualized. Atherosclerotic plaque is noted in the regional arteries. The dorsalis pedis artery appears patent. IMPRESSION: 1. There is erosive change involving the fifth proximal phalanx as above. This is typical for osteomyelitis 2. There is loculated fluid around the fifth proximal phalanx at the proximal interphalangeal joint, likely resenting septic arthritis versus a tiny abscess. 3. There is cellulitis throughout the foot, greatest in the fifth toe with evidence of a cutaneous ulceration. 4. Osteopenia and degenerative change as above. ACT 112: Negative or not required by law. Dictated: 04/07/2022 8:12 AM Transcribed: 04/07/2022 8:58 AM Ros [id number] [facility] XR foot LT min 3V routine CLINICAL HISTORY: infection?, L 5th toe wound TECHNIQUE: 3 views of the right foot were obtained. Comparison: Comparison is made to left foot radiographs 08/30/2020 FINDINGS: No evidence of bony erosion is seen. Severe degenerative changes are seen most prominent in the mid foot. Diffuse osteopenia is seen. Soft tissue swelling is seen. There is an ulcer at the base of the fifth digit. IMPRESSION: Soft tissue swelling compatible with cellulitis. An ulcer is in the fifth digit. No evidence of osteomyelitis.
[2022-04-07] MEDS ORDERED: Heparin IV Adult Wt-Based Standard *NO* Bolus Protocol IV SCH (15:30)
[2022-04-07] MEDS ORDERED: HEPARIN SODIUM/DEXTROSE 25,000 UNITS/500 ML BAG IV SCH (15:45)
[2022-04-07] MEDS ORDERED: HEPARIN SOD (PORCINE) 1000 UNIT/ML IV ONE (16:30)
[2022-04-07 16:54] LABS: Basophils # (auto) 0.07 K/uL (0-0.2); Basophils % (auto) 0.7 %; Eosinophils # (auto) 1.53 K/uL (0-0.5); Eosinophils % (auto) 16.3 %; Hematocrit (blood only) 38.2 % (37-47); Immature Granulocytes # (auto) 0.11 K/uL (0.00-0.02); Immature Granulocytes % (auto) 1.2 %; Lymphocytes # (auto) 2.52 K/uL (1.2-3.4); Lymphocytes % (auto) 26.8 %; Mean Corpuscular Hemoglobin 27.6 pg (25-34); Mean Platelet Volume 9.3 fL (7.4-10.4); Monocytes # (auto) 0.65 K/uL (0.11-0.59); Monocytes % (auto) 6.9 %; Neutrophils # (auto) 4.51 K/uL (1.4-6.5); Neutrophils % (auto) 48.1 %; Platelet Count 517 K/uL (130-400); RDW Coefficient of Variation 17.4 % (11.5-14.5); RDW Standard Deviation 56.4 fL (36.4-46.3); Red Blood Count 4.34 M/uL (4.2-5.4); White Blood Count 9.39 K/uL (4.8-10.8)
[2022-04-07] MEDS: HEPARIN SODIUM/DEXTROSE 25,000 UNITS/500 ML BAG IV SCH (16:56)
[2022-04-07 17:09] LABS: Mean Corpuscular Hgb Conc 31.4 g/dL (32-36)
[2022-04-07 17:12] LABS: Partial Thromboplastin Ratio 1.4; Partial Thromboplastin Time 38.8 Seconds (21.0-31.0)
--- NOTE | 2022-04-07 17:58 | Vascular Medicine ProgressNote ---
Date of Service April 07, 2022 Assessment & Plan (1) PAD (peripheral artery disease): Plan: 2. Left fifth digit ulcer. Recurrent neuropathic ulcers in the past 3. Left lower extremity cellulitis 4. Chronic venous insufficiencystatus post bilateral GSV RFA, right SSV VenaSeal 5. Chronic diastolic heart failure 6. Post mechanical AVR/MVR 7. Permanent atrial fibrillation on anticoagulation with warfarin 8. History of diabetes Bilateral TBI's -- Right 1.29, left 1.44 (187) Foot CTleft fifth digit osteomyelitis with questionable PIP joint abscess/septic arthritis and surrounding cellulitis Toe pressures and exam reassuring for adequate arterial perfusion for wound healing. Okay to proceed with possible amputation of fifth digit without additional vascular testing/intervention. Chronic venous insufficiency stable. No need for additional left AASV intervention. Long-term okay for any compressive therapy. Admission and Anticipated Discharge Date Admission Date: April 05, 2022 Subjective Feeling well this morning. We will continue. Radial band. Denies significant pain in her left leg. Denies fevers or chills. No other concerns. Review of Systems Review of Systems: All systems reviewed & are unremarkable except as noted in HPI & below Physical Exam Physical Exam: General: No acute distress, comfortable. Lungs: Clear to auscultation bilaterally without rales, rhonchi or wheezes. Cardiac: Irregularly irregular crisp aortic, mitral mechanical closure Extremities/vascular: -- Well perfused. 1+ bilateral lower extremity edema, chronic venous stasis changes --Radial 1+ bilaterally --DP 2+ bilaterally, diminished DP pulses bilaterally -- Sluggish capillary refill bilaterally -- Fifth toe ulcer, recent wound images reviewed --Hyperpigmentation distal shins bilaterally Neurologic: Nonfocal Psychiatric: Affect appropriate. Alert and oriented. No erythema over left obrien. Does have mild residual erythema in the forefoot extending out from the fifth digit. Results & Data ([facility]) Vital Signs (Past 12 Hours) Vital Signs Temp Pulse Resp BP Pulse Ox 04/07/22 15:20 97.9 F 76 16 146/94 H 96 04/07/22 07:10 98.4 F 81 16 122/74 96 PG Care Time/CCT Total # of Minutes Spent Total Time Spent with Patient: Total time spent is greater than 50% in coordination of care (as documented) at patient's floor/unit and/or counseling patient: Coding Level of Care Code 11500 Subseq Hosp Care Lvl 3 Diagnoses PAD (peripheral artery disease) I73.9
[2022-04-07] MEDS: Heparin IV Adult Wt-Based Standard WITH Bolus Protocol IV SCH (19:08)
[2022-04-07 23:01] LABS: Partial Thromboplastin Ratio 4.1
[2022-04-07 23:41] LABS: Partial Thromboplastin Time 112.2 Seconds (21.0-31.0)
[2022-04-07] MEDS: ACETAMINOPHEN 325 MG TAB PO PRN (23:51)
[2022-04-08 06:58] LABS: Eosinophils # (auto) 2.25 K/uL (0-0.5); Eosinophils % (auto) 21.7 %; Hematocrit (blood only) 33.5 % (37-47); Hemoglobin 10.5 g/dL (12.0-16.0); Immature Granulocytes # (auto) 0.15 K/uL (0.00-0.02); Immature Granulocytes % (auto) 1.4 %; Lymphocytes # (auto) 2.56 K/uL (1.2-3.4); Lymphocytes % (auto) 24.7 %; Mean Corpuscular Hemoglobin 28.2 pg (25-34); Mean Corpuscular Hgb Conc 31.3 g/dL (32-36); Mean Corpuscular Volume 89.8 fL (80-100); Mean Platelet Volume 9.1 fL (7.4-10.4); Monocytes # (auto) 1.18 K/uL (0.11-0.59); Monocytes % (auto) 11.4 %; Neutrophils # (auto) 4.14 K/uL (1.4-6.5); Neutrophils % (auto) 39.8 %; Platelet Count 440 K/uL (130-400); RDW Coefficient of Variation 17.6 % (11.5-14.5); RDW Standard Deviation 57.7 fL (36.4-46.3); Red Blood Count 3.73 M/uL (4.2-5.4); White Blood Count 10.38 K/uL (4.8-10.8)
[2022-04-08 07:18] LABS: BUN Creatinine Ratio 25.8 (10-20); C Reactive Protein 1.18 mg/dl (0-0.5); Calcium 9.1 mg/dl (8.5-10.1); Creatinine Clr Calc Pharmacy 64.1 ml/min; Est GFR (African American) 69.7 ml/min; Est GFR (Non-African American) 60.1 ml/min; Magnesium 2.3 mg/dl (1.7-2.4)
[2022-04-08 07:20] LABS: INR 2.5 (0.9-1.1); Partial Thromboplastin Ratio 2.7; Prothrombin Time 25.4 Seconds (9.0-12.0)
[2022-04-08 07:23] LABS: Partial Thromboplastin Time 75.6 Seconds (21.0-31.0)
[2022-04-08] MEDS ORDERED: PHYTONADIONE 2 MG in DEXTROSE 5% 50 ML IV ONE (08:00)
[2022-04-08] MEDS: ADVANCED PROBIOTIC 1250 MG CAPSULE PO SCH (09:23)
[2022-04-08] MEDS: BUMETANIDE 1 MG TAB PO SCH (09:23)
[2022-04-08] MEDS: ATORVASTATIN 20 MG TAB PO SCH (09:23)
[2022-04-08] MEDS: MULTIVITAMIN TAB PO SCH (09:24)
[2022-04-08] MEDS: TRIAMCINOLONE ACET 0.1% CR 80 GM TUBE EXT SCH ×3 (09:24→23:44)
[2022-04-08] MEDS: POTASSIUM CHLORIDE 20 MEQ/15 ML UDC PO SCH ×3 (09:24→23:46)
[2022-04-08] MEDS: NYSTATIN POWDER 15GM BTL EXT SCH ×3 (09:24→23:44)
[2022-04-08] MEDS: SUCRALFATE 1 GM TAB PO SCH ×4 (09:24→23:44)
[2022-04-08] MEDS: PANTOprazole 40 MG TAB PO SCH ×2 (09:25→23:44)
[2022-04-08] MEDS: MAGNESIUM OXIDE 400 MG TAB PO SCH ×2 (09:25→23:43)
[2022-04-08] MEDS: METOPROLOL SUCC 50MG EXT REL TAB PO SCH ×2 (09:25→23:44)
[2022-04-08] MEDS: ceFAZolin 2000MG 2,000 MG/15 ML SYR IV SCH ×2 (09:29→17:03)
--- NOTE | 2022-04-08 12:06 | Hospitalist Progress Note ---
Date of Service April 08, 2022 Assessment & Plan (1) Left leg cellulitis: Plan: now resolved it seems, but with toe wound and left fifth toe OM as noted on CT foot Recurrent. Had group B strep cellulitis with bacteremia in February. Now with MSSA and group B Streptococcus growing from wound. initially received IV vanco and IV cefepime. Changed to IV Ancef on 04/06 Arterial duplex study results of LLE noted - Dr. Grider of Interventional Vascular saw her and ordered TBI which was normal-there is adequate blood flow and no intervention needed Asplenic state, ?PAD, and DM all contributing to heightened infectious risk. Venous insufficiency also likely contributes to some degree as well. (2) Ulcer of toe of left foot: Plan: L 5th toe, dorsal surface. With OM of prox phalanx on CT foot as well as septic arthritis vs abscess of toe Cont IV antibiotics. WOund care states the ulcer probes to the bone. Pt reports that because of her mechanical valves she cannot have MRI. -consult Ortho appreciated-plan for toe debridement and possible amputation on 04/08 I discussed her care with her senior product analyst, Dr. Lee, who says she has optimized for surgery-watch volume status in the perioperative period. (3) Osteomyelitis of toe of left foot: Plan: As noted above (4) Rash: Plan: irritant/contact dermatitis vs candidal (groin portion only) vs other. this rash does not appear to be a drug reaction to any recent antibiotic. It is now completely resolved with antihistamines and topical triamcinolone continue atarax 10mg TID prn thereafter triamcinolone cream 0.1% - TID to rash in thin amounts nystatin powder for rash in groin TID (5) PAD (peripheral artery disease): Plan: LLE arterial duplex worrisome for significant LLE PAD with normal TBI appreciate Vascular opinion, no intervention needed cont statin (6) Hypokalemia: Plan: now improved due to high-dose bumex Restart Bumex Potassium is now 5.0-discontinue potassium chloride supplement cont mag supplementation Check BMP (7) Acquired asplenia: Plan: due to massive splenomegaly earlier in life, causing lung compromise per her recollection? (8) Acute on chronic heart failure with preserved ejection fraction: Plan: was on 2mg IV BID of bumex for many days to diurese mostly right-sided symptoms restarted home po bumex 4 mg daily (9) Anticoagulant long-term use: Plan: her usual warfarin dosing 2.5mg every day, except 5mg on Mondays Reversed Coumadin for surgery on 04/08 with IV vitamin K Continue heparin drip-to restart after surgery for bridging Likely restart Coumadin tomorrow Follow INR (10) History of Chris-en-Y gastric bypass: Plan: noted cont PPI bid cont carafate qid (11) Hx of aortic valve replacement, mechanical: Plan: has both MVR and AVR mechanical INR goal 2.5-3.[address] Lee locally (12) Permanent atrial fibrillation: Plan: rate controlled Continue metoprolol succinate 50mg PO BID Anticoagulation with warfarin daily INR (13) GERD (gastroesophageal reflux disease): Plan: Continue pantoprazole 40mg PO BID Continue carafate QID Plan: Dispo-continued stay Admission and Anticipated Discharge Date Admission Date: April 05, 2022 Subjective Patient has no complaints. Has a little bit of pain in the left foot. Feels like maybe her blood sugars getting now. Denies chest pains or shortness of breath, no nausea or abdominal pains. Review of Systems Review of Systems: All systems reviewed & are unremarkable except as noted in HPI & below Physical Exam Constitutional: WD/WN, vitals as above Eyes: + anicteric sclerae Neck: trachea midline, no thyromegaly Respiratory: normal respiratory effort, lungs clear to auscultation Cardiovascular: Rate/Rhythm: regular rate and + irregularly irregular Heart Sounds: + click Gastrointestinal (Abdomen): normal bowel sounds, soft, nontender, no hepatosplenomegaly Musculoskeletal: Extremities: + extremities abnormal to inspection (left fifth toe edematous,draining purulent material,macerated ulcer), no cyanosis and no clubbing Neurologic: moves all extremities and awake; no focal motor deficits Psychiatric: A+Ox3, euthymic affect Lymphatic: no lymphedema Results & Data Results & Data ([facility]) Vital Signs (Past 12 Hours) Vital Signs Temp Pulse Resp BP Pulse Ox 04/08/22 09:21 36.7 C 69 17 138/80 95 04/08/22 09:00 36.8 C 78 18 119/72 95 04/08/22 08:40 36.8 C 64 20 119/73 97 04/08/22 08:22 37.1 C 70 20 115/66 95 04/08/22 07:25 36.6 C 72 18 146/89 H 95 Laboratory Results 04/08/22 04/08/22 04/08/22 Range/Units 17:56 15:37 13:04 WBC (4.8-10.8) K/uL RBC (4.2-5.4) M/uL Hgb (12.0-16.0) g/dL Hct (37-47) % MCV (80-100) fL MCH (25-34) pg MCHC (32-36) g/dL RDW Std Deviation (36.4-46.3) fL RDW Coeff of Donald (11.5-14.5) % Plt Count (130-400) K/uL MPV (7.4-10.4) fL Immature Gran % (Auto) % Neut % (Auto) % Lymph % (Auto) % Hill % (Auto) % Eos % (Auto) % Baso % (Auto) % Neut # (Auto) (1.4-6.5) K/uL Lymph # (Auto) (1.2-3.4) K/uL Hill # (Auto) (0.11-0.59) K/uL Eos # (Auto) (0-0.5) K/uL Baso # (Auto) (0-0.2) K/uL Immature Gran # (Auto) (0.00-0.02) K/uL ESR (0-30) mm/hr PT 17.4 H 18.2 H 20.0 H (9.0-12.0) Seconds INR 1.7 H 1.8 H 1.9 H (0.9-1.1) APTT 42.1 H (21.0-31.0) Seconds PTT Ratio 1.5 Sodium (136-145) mmol/L Potassium (3.5-5.1) mmol/L Chloride (98-107) mmol/L Carbon Dioxide (21-32) mmol/L Anion Gap (3-11) BUN (6-23) mg/dl Creatinine (0.6-1.2) mg/dl Est Cr Clr Drug Dosing ml/min Est GFR ( Amer) ml/min Est GFR (Non-Af Amer) ml/min BUN/Creatinine Ratio (10-20) Glucose (70-99(Fasting)) mg/dl POC Glucose (70-99) mg/dl Calcium (8.5-10.1) mg/dl Magnesium (1.7-2.4) mg/dl C-Reactive Protein (0-0.5) mg/dl 04/08/22 04/08/22 04/08/22 Range/Units 12:06 06:37 06:37 WBC (4.8-10.8) K/uL RBC (4.2-5.4) M/uL Hgb (12.0-16.0) g/dL Hct (37-47) % MCV (80-100) fL MCH (25-34) pg MCHC (32-36) g/dL RDW Std Deviation (36.4-46.3) fL RDW Coeff of Donald (11.5-14.5) % Plt Count (130-400) K/uL MPV (7.4-10.4) fL Immature Gran % (Auto) % Neut % (Auto) % Lymph % (Auto) % Hill % (Auto) % Eos % (Auto) % Baso % (Auto) % Neut # (Auto) (1.4-6.5) K/uL Lymph # (Auto) (1.2-3.4) K/uL Hill # (Auto) (0.11-0.59) K/uL Eos # (Auto) (0-0.5) K/uL Baso # (Auto) (0-0.2) K/uL Immature Gran # (Auto) (0.00-0.02) K/uL ESR 70 H (0-30) mm/hr PT 25.4 H (9.0-12.0) Seconds INR 2.5 H (0.9-1.1) APTT 75.6 H* (21.0-31.0) Seconds PTT Ratio 2.7 Sodium (136-145) mmol/L Potassium (3.5-5.1) mmol/L Chloride (98-107) mmol/L Carbon Dioxide (21-32) mmol/L Anion Gap (3-11) BUN (6-23) mg/dl Creatinine (0.6-1.2) mg/dl Est Cr Clr Drug Dosing ml/min Est GFR ( Amer) ml/min Est GFR (Non-Af Amer) ml/min BUN/Creatinine Ratio (10-20) Glucose (70-99(Fasting)) mg/dl POC Glucose 94 (70-99) mg/dl Calcium (8.5-10.1) mg/dl Magnesium (1.7-2.4) mg/dl C-Reactive Protein (0-0.5) mg/dl 04/08/22 04/08/22 04/07/22 Range/Units 06:37 06:37 22:26 WBC 10.38 (4.8-10.8) K/uL RBC 3.73 L (4.2-5.4) M/uL Hgb 10.5 L (12.0-16.0) g/dL Hct 33.5 L (37-47) % MCV 89.8 (80-100) fL MCH 28.2 (25-34) pg MCHC 31.3 L (32-36) g/dL RDW Std Deviation 57.7 H (36.4-46.3) fL RDW Coeff of Donald 17.6 H (11.5-14.5) % Plt Count 440 H (130-400) K/uL MPV 9.1 (7.4-10.4) fL Immature Gran % (Auto) 1.4 % Neut % (Auto) 39.8 % Lymph % (Auto) 24.7 % Hill % (Auto) 11.4 % Eos % (Auto) 21.7 % Baso % (Auto) 1.0 % Neut # (Auto) 4.14 (1.4-6.5) K/uL Lymph # (Auto) 2.56 (1.2-3.4) K/uL Hill # (Auto) 1.18 H (0.11-0.59) K/uL Eos # (Auto) 2.25 H (0-0.5) K/uL Baso # (Auto) 0.10 (0-0.2) K/uL Immature Gran # (Auto) 0.15 H (0.00-0.02) K/uL ESR (0-30) mm/hr PT (9.0-12.0) Seconds INR (0.9-1.1) APTT 112.2 H* (21.0-31.0) Seconds PTT Ratio 4.1 Sodium 137 (136-145) mmol/L Potassium 5.0 D (3.5-5.1) mmol/L Chloride 106 (98-107) mmol/L Carbon Dioxide 26 (21-32) mmol/L Anion Gap 5 (3-11) BUN 24 H (6-23) mg/dl Creatinine 0.93 (0.6-1.2) mg/dl Est Cr Clr Drug Dosing 64.1 ml/min Est GFR ( Amer) 69.7 ml/min Est GFR (Non-Af Amer) 60.1 ml/min BUN/Creatinine Ratio 25.8 H (10-20) Glucose 87 (70-99(Fasting)) mg/dl POC Glucose (70-99) mg/dl Calcium 9.1 (8.5-10.1) mg/dl Magnesium 2.3 (1.7-2.4) mg/dl C-Reactive Protein 1.18 H (0-0.5) mg/dl PG Care Time/CCT Total # of Minutes Spent Total Time Spent with Patient: Total time spent is greater than 50% in coordination of care (as documented) at patient's floor/unit and/or counseling patient: Coding Level of Care Code 94794 Subseq Hosp Care Lvl 3 Diagnoses Left leg cellulitis L03.116 Ulcer of toe of left foot L97.529 Osteomyelitis of toe of left foot M86.9 Rash R21 PAD (peripheral artery disease) I73.9 Hypokalemia E87.6 Acquired asplenia Z90.81 Acute on chronic heart failure with preserved ejection fraction I50.33 Anticoagulant long-term use Z79.01 History of Chris-en-Y gastric bypass Z98.84 Hx of aortic valve replacement, mechanical Z95.2 Permanent atrial fibrillation I48.21 GERD (gastroesophageal reflux disease) K21.9
[2022-04-08 13:39] LABS: INR 1.9 (0.9-1.1); Partial Thromboplastin Ratio 1.5; Partial Thromboplastin Time 42.1 Seconds (21.0-31.0)
[2022-04-08 16:30] LABS: INR 1.8 (0.9-1.1); Prothrombin Time 18.2 Seconds (9.0-12.0)
[2022-04-08 18:18] LABS: INR 1.7 (0.9-1.1); Prothrombin Time 17.4 Seconds (9.0-12.0)
[2022-04-08] MEDS ORDERED: BUPIVACAINE 0.5 % 5 MG/1 ML MPF 30ML VIAL ONE (21:29)
[2022-04-08] MEDS ORDERED: ceFAZolin 330 MG/ML 1 GM VIAL ONE (21:29)
--- NOTE | 2022-04-08 21:58 | Anesthesiology Consultation ---
Date of Service April 08, 2022 Assessment & Plan Chart Review Chart Review: Acceptable Risk for Surgery and Patient NOT seen in Pre Admission Testing Consults Requested none ASA ASA4 Proposed Anesthesia Anesthesia Type: MAC Risk / Benefits Reviewed With: PT / POA / Parent / Guardian, Accepts Plan and Informed Consent Obtained History Surgery Operation Date: 04/08/22 08:20 Proposed Procedures p Incision and Drainage 5th Toe Left - Fabrice Toscano DO s Possible Left 5th Toe Amputation - Fabrice Toscano DO Height/Weight Height: 5 ft 9 in Weight: 94.9 kg Allergies Allergy/AdvReac Type Severity Reaction Status Date / Time iron [From Venofer] Allergy Severe VENOFER Verified 04/04/22 17:48 INFUSION-RASH,WEAKNESS,BLEEDING-HOSPITALIZED iron dextran complex Allergy Severe RASH Verified 04/04/22 17:48 choline salicylate Allergy Intermediate TRILISATE-r Verified 04/04/22 17:48 nay magnesium salicylate Allergy Intermediate TRILISATE-r Verified 04/04/22 17:48 nay mometasone furoate Allergy Unknown Pt has no Verified 04/04/22 17:48 recollection of this Medications Home Medications Medication Instructions Recorded Confirmed Last Taken multivitamin 1 tab PO QAM 05/06/20 04/04/22 04/04/22 acetaminophen 500 mg capsule 1,000 mg PO DIRECTED PRN cap 03/04/21 04/04/22 02/16/22 metoprolol succinate 50 mg 50 mg PO BID #180 tab 04/08/21 04/04/22 04/04/22 08:00 tablet,extended release 24 hr warfarin 5 mg tablet 5 mg PO .COMPLEX #120 tab 04/15/21 04/04/22 04/03/22 oxycodone-acetaminophen 5 mg-325 1 tab PO Q6H PRN #14 tab 12/05/21 04/04/22 Unknown mg tablet (Percocet) tramadol 50 mg tablet 50 mg PO TID PRN #90 tab 01/02/22 04/04/22 02/16/22 polyethylene glycol 3350 17 17 g PO DAILY PRN 02/10/22 04/04/22 Unknown gram/dose oral powder (Miralax) bumetanide 1 mg tablet 4 mg PO QAM 02/16/22 04/04/22 04/04/22 potassium chloride 20 mEq/15 mL See Rx Instructions .ROUTE .COMPLEX 02/16/22 04/04/22 04/04/22 08:00 oral liquid BD Eclipse 25 gauge x 1" needle #3 ea NS 02/24/22 03/02/22 Unknown (safety needles) cyanocobalamin (vitamin B-12) 1,000 mcg IM Q4WK #3 ml 02/24/22 04/04/22 Unknown 1,000 mcg/mL injection solution pantoprazole 40 mg tablet,delayed 40 mg PO BID #60 tab 02/24/22 04/04/22 04/04/22 08:00 release sucralfate 1 gram tablet 1 g PO TID #90 tab 02/24/22 04/04/22 04/04/22 14:00 atorvastatin 20 mg tablet 20 mg PO QAM #90 tab 03/02/22 04/04/22 04/04/22 metolazone 5 mg tablet 5 mg PO DIRECTED PRN 04/04/22 04/04/22 Unknown Active Medications Generic Name Dose Route Start Last Admin Trade Name Fre PRN Reason Stop Dose Admin Acetaminophen 650 mg 04/04/22 20:21 04/07/22 23:51 Acetaminophen 325 Mg Tab PO 05/04/22 20:20 650 mg Q4H PRN Administration pain/fever Atorvastatin Calcium 20 mg 04/05/22 09:00 04/08/22 09:23 Atorvastatin 20 Mg Tab PO 05/05/22 08:59 Not Given QAM MARCI Bumetanide 4 mg 04/08/22 09:00 04/08/22 09:23 Bumetanide 1 Mg Tab PO 05/08/22 08:59 Not Given QAM MARCI Cefazolin Sodium 2,000 mg in 15 mls @ 3.75 mls/min 04/06/22 09:00 04/08/22 17:03 Ancef 2000mg IV 04/13/22 08:59 3.75 mls/min Q8H MARCI Administration Heparin Sodium/Dextrose 25,000 units in 500 mls @ 0 mls/hr 04/07/22 16:30 04/08/22 12:14 Heparin Sodium/Dextrose IV 05/07/22 16:29 0 units/hr .Q0M MARCI 0 mls/hr Titration Protocol 0 UNITS/HR Lactobacillus Acidophilus 2 cap 04/06/22 12:30 04/08/22 09:23 Advanced Probiotic 1250 Mg Capsule PO 05/06/22 12:29 Not Given DAILY MARCI Magnesium Oxide 400 mg 04/05/22 13:30 04/08/22 09:25 Magnesium Oxide 400 Mg Tab PO 05/05/22 13:29 400 mg BID MARCI Administration Metoprolol Succinate 50 mg 04/04/22 21:00 04/08/22 09:25 Metoprolol Succ 50mg Ext Rel Tab PO 05/04/22 20:59 50 mg BID MARCI Administration Multivitamins 1 tab 04/05/22 09:00 04/08/22 09:24 Multivitamin Tab PO 05/05/22 08:59 Not Given QAM MARCI Nystatin 1 appln 04/06/22 14:00 04/08/22 13:55 Nystatin Powder 15gm Btl EXT 05/06/22 13:59 Not Given TID [facility] Ondansetron HCl 4 mg 04/05/22 18:50 04/07/22 13:20 Ondansetron Inj 2 Mg/Ml 2 Ml Vial IV 05/05/22 18:49 4 mg Q6H PRN Administration Nausea And Vomiting Pantoprazole Sodium 40 mg 04/04/22 21:00 04/08/22 09:25 Pantoprazole 40 Mg Tab PO 05/04/22 20:59 40 mg BID MARCI Administration Potassium Chloride 40 meq 04/05/22 14:00 04/08/22 13:55 Potassium Chloride 20 Meq/15 Ml Udc PO 05/05/22 13:59 Not Given TID [facility] Sucralfate 1 gm 04/05/22 21:00 04/08/22 16:29 Sucralfate 1 Gm Tab PO 05/05/22 20:59 Not Given QID [facility] Tramadol HCl 50 mg 04/04/22 20:21 04/06/22 02:08 Tramadol Hcl 50 Mg Tablet PO 05/04/22 20:20 50 mg TID PRN Administration Pain Triamcinolone Acetonide 1 appln 04/06/22 14:00 04/08/22 14:09 Triamcinolone Acet 0.1% Cr 80 Gm Tube EXT 05/06/22 13:59 1 appln TID MARCI Administration Warfarin Sodium 5 mg 04/06/22 16:00 04/06/22 18:24 Warfarin Sod 5 Mg Tab PO 05/06/22 15:59 5 mg [id number]@1600 MARCI Administration Warfarin Sodium 2.5 mg 04/05/22 16:00 04/05/22 16:15 Warfarin Sod 2.5 Mg Tab PO 05/05/22 15:59 2.5 mg [id number]@1600 MARCI Administration NPO Date Last Intake of Fluids: 04/08/22 Time Last Intake of Fluids: 00:00 Past Medical History Medical History Abnormal CT scan, chest Acute blood loss anemia Anastomotic ulcer S/P gastric bypass ASCVD (arteriosclerotic cardiovascular disease) Carotid stenosis, asymptomatic left Carpal tunnel syndrome Cervical radiculopathy Chronic diastolic (congestive) heart failure Diabetic peripheral neuropathy associated with type 2 diabetes mellitus Elevated alkaline phosphatase level Esophageal candidiasis Eustachian tube dysfunction Hearing loss HTN (hypertension) Hyperlipidemia 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 Mitral regurgitation Nontoxic multinodular goiter Obesity Obstructive sleep apnea Osteoporosis Pericardial effusion Permanent atrial fibrillation Personal history of diabetic foot ulcer Spinal stenosis, lumbar region with neurogenic claudication 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 Vitamin B12 deficiency Vitamin D deficiency Exercise / Class Metabolic Activity II 4-5 Yardwork/Stairs/Walk up hill Past Family History Family History Mother Congestive heart failure Diabetes Hypertension Cardiac disorder Brother Diabetes Polycythemia Pharyngeal neoplasm Pulmonary embolism Father Lung cancer Acute myocardial infarction Hypertension Cardiac disorder Myocardial infarction Denies family history of Ovarian cancer Prostate cancer Crohn's disease Breast cancer Colorectal cancer Past Surgical History Surgical History H/O gastric bypass H/O hernia repair H/O splenectomy H/O splenectomy History of esophagogastroduodenoscopy (EGD) History of knee replacement bilateral History of total abdominal hysterectomy many years ago, fibroids, bleeding Hx of appendectomy Hx of cholecystectomy Hx of tonsillectomy S/P gastric bypass S/P pericardial window creation (2011) Status post panniculectomy Past Anesthesia History No Hx of Anesthesia Complications and No Family Hx of Anesthesia Complications History of PONV No Hx of PONV and No Hx of Motion Sickness Social History Smoking Status: Never smoker Hx Alcohol Use: Yes Alcohol type: hard liquor alcohol intake frequency: a few times a week Hx Substance Use: No substance use type: painkillers Physical Exam Vital Signs Last Vital Signs Temp 36.9 C 04/08/22 14:16 Pulse 72 04/08/22 14:16 Resp 16 04/08/22 14:16 BP 107/67 04/08/22 14:16 Pulse Ox 95 04/08/22 14:16 Constitutional + obese ENMT Mouth: no dentition abnormality Thyromental Distance: > or= 3.5 Finger Breadths Mallampati Class: II Neck normal visual inspection Respiratory normal respiratory effort Auscultation: lungs clear to auscultation bilaterally Cardiovascular Rate/Rhythm: regular rate; + abnormal rhythm (afib) Psychiatric Orientation: alert Testing Laboratory Results 04/08/22 06:37 04/08/22 06:37 PT 17.4 Seconds (9.0-12.0) H 04/08/22 17:56 INR 1.7 (0.9-1.1) H 04/08/22 17:56 APTT 42.1 Seconds (21.0-31.0) H 04/08/22 13:04 Urine Color Yellow 04/05/22 02:00 Urine Appearance Clear (Clear) 04/05/22 02:00 Urine pH 5.0 (4.5-7.5) 04/05/22 02:00 Ur Specific [place] 1.017 (1.000-1.030) 04/05/22 02:00 Urine Protein Negative (Negative) 04/05/22 02:00 Urine Glucose (UA) Negative (Negative) 04/05/22 02:00 Urine Ketones Negative (Negative) 04/05/22 02:00 Urine Nitrite Positive (Negative) A 04/05/22 02:00 Ur Leukocyte Esterase 1+ (Negative) H 04/05/22 02:00 Urine WBC (Auto) 10-30 /hpf (0-5) H 04/05/22 02:00 Urine RBC (Auto) 0-4 /hpf (0-4) 04/05/22 02:00 U Hyaline Cast (Auto) 1-5 /lpf (0-5) 04/05/22 02:00 U Epithel Cells (Auto) >30 /lpf (0-5) H 04/05/22 02:00 Urine Bacteria (Auto) Negative (Negative) 04/05/22 02:00 04/04/22 17:16 Gram Stain - Final Toe,Left Fifth Wound Culture - Final Staphylococcus aureus Group B Beta Strep 04/05/22 02:00 Urine Culture - Final Urine,Clean Catch Three types of organisms present, all low counts probable skin selvin. No further identifications or sensitivities to follow. 04/04/22 17:27 Aerobic Blood Culture - Preliminary Blood No growth in Aerobic bottle after 48 hours. Anaerobic Blood Culture - Preliminary No growth in Anaerobic bottle after 48 hours. 04/04/22 17:27 Aerobic Blood Culture - Preliminary Blood No growth in Aerobic bottle after 48 hours. Anaerobic Blood Culture - Preliminary No growth in Anaerobic bottle after 48 hours. 04/08/22 12:06 POC Glucose 94
[2022-04-08] MEDS ORDERED: ATROPINE SULFATE 0.1 MG/ML 10ML SYR IV PRN (22:00)
[2022-04-08] MEDS ORDERED: ePHEDrine sulfate 50 MG/ML AMP IV PRN (22:00)
[2022-04-08] MEDS ORDERED: ONDANSETRON INJ 2 MG/ML 2 ML VIAL IV PRN (22:00)
[2022-04-08] MEDS ORDERED: fentaNYL citrate 100 MCG/2 ML VIAL IV PRN (22:00)
[2022-04-08] MEDS ORDERED: fentaNYL citrate 100 MCG/2 ML VIAL ONE (22:03)
[2022-04-08] MEDS ORDERED: MIDAZOLAM HCL 1 MG/ML 2ML VIAL ONE (22:03)
--- NOTE | 2022-04-08 22:09 | History & Physical Bridge Note ---
Date of Service April 08, 2022 History & Physical Bridge Note I have examined the patient, reviewed the History & Physical and in the interval since the performance of the History & Physical I have noted the following changes of clinical significance: no changes noted
[2022-04-08] MEDS ORDERED: PROPOFOL IV EMULSION 10 MG/ML 20 ML VIAL IV ONE (22:49)
[2022-04-08] MEDS ORDERED: LIDOCAINE 2% 2 ML VIAL/AMP(20MG/ML) INFIL ONE (22:49)
--- NOTE | 2022-04-08 22:54 | Post Operative Brief Note ---
Immediate Post Op Note v1 Date of Surgery April 08, 2022 Pre & Post Diagnosis Operation Date: 04/08/22 08:20 Pre-Op Diagnosis: Osteomyelitis fifth toe of left foot, left foot cellulitis, peripheral artery disease Post-Op Diagnosis: Osteomyelitis fifth toe of left foot, left foot cellulitis, peripheral artery disease I identified the patient and participated in the time-out.: Yes Procedure Operation Date: 04/08/22 08:20 Actual Procedures p Left 5th Toe Amputation(Left) - Fabrice Tosacno DO Surgeon Fabrice Toscano DO Environment Artist None Estimated Blood Loss 1 Findings Consistent with Post-Op Diagnosis Specimens Bone and tissue left fifth toe amputation Anesthesia Type MAC Regional Complications none Disposition Accompanied Patient To Recovery: No
--- NOTE | 2022-04-08 23:04 | Anesthesiology Progress Note ---
Date of Service April 08, 2022 Anesthesia Post Procedure Vital Signs Vital Signs: Temp Pulse Resp BP Pulse Ox 04/08/22 14:16 36.9 C 72 16 107/67 95 04/08/22 09:21 36.7 C 69 17 138/80 95 04/08/22 09:00 36.8 C 78 18 119/72 95 04/08/22 08:40 36.8 C 64 20 119/73 97 04/08/22 08:22 37.1 C 70 20 115/66 95 04/08/22 07:25 36.6 C 72 18 146/89 H 95 Pain Intensity Bilateral Leg: Pain Intensity: 5 Right Shoulder: Pain Intensity: 4 Transfer of Care Handoff Completed per policy Notes Mental Status: alert / awake / arousable Patient Amnestic to Procedure: Yes Nausea / Vomiting: adequately controlled Pain: adequately controlled Airway Patency, RR, SpO2: stable & adequate BP & HR: stable & adequate Hydration State: stable & adequate Anesthetic Complications: no major complications apparent
[2022-04-08] MEDS ORDERED: ALUMINUM/MAGNESIUM SUSP 30 ML UDC PO PRN (23:37)
[2022-04-08] MEDS ORDERED: bisacodyL 10 MG SUPP PR PRN (23:37)
[2022-04-08] MEDS ORDERED: HYDROmorphone INJ 0.5 MG/0.5 ML SYR IV PRN (23:37)
[2022-04-08] MEDS ORDERED: MAGNESIUM HYDROXIDE SUSP 30 ML UDC PO PRN (23:37)
[2022-04-08] MEDS ORDERED: diphenhydrAMINE Capsule 25 MG CAP PO PRN (23:37)
[2022-04-08] MEDS ORDERED: SODIUM CHLORIDE 0.9% 1000ML 1,000 ML IV SCH (23:37)
[2022-04-08] MEDS ORDERED: METOCLOPRAMIDE HCL INJ 5 MG/ML 2 ML VIAL IV PRN (23:37)
[2022-04-08] MEDS ORDERED: oxyCODONE HCL IR 5 MG TAB (IMMEDIATE RELEASE) PO PRN (23:37)
[2022-04-08] MEDS ORDERED: NALOXONE HCL 0.4 MG/1 ML VIAL/CARP IV PRN (23:37)
[2022-04-09] MEDS: ceFAZolin 2000MG 2,000 MG/15 ML SYR IV SCH ×3 (00:08→16:56)
[2022-04-09] MEDS: HEPARIN SODIUM/DEXTROSE 25,000 UNITS/500 ML BAG IV SCH ×2 (01:18→22:23)
[2022-04-09 02:17] LABS: Partial Thromboplastin Ratio 1.2; Partial Thromboplastin Time 33.8 Seconds (21.0-31.0)
[2022-04-09] MEDS: traMADol HCL 50 MG TABLET PO PRN (04:31)
--- NOTE | 2022-04-09 05:21 | Operative Report (OR) ---
DATE OF PROCEDURE: 04/08/2022. PREOPERATIVE DIAGNOSES: 1. Left fifth toe osteomyelitis. 2. Left foot cellulitis. POSTOPERATIVE DIAGNOSES: 1. Left fifth toe osteomyelitis. 2. Left foot cellulitis. PROCEDURE: Left fifth toe amputation. SURGEON: Fabrice Toscano DO AN/SSN 2 4 OPERATOR: None. ANESTHESIA: MAC regional. SPECIMENS: 1. Bone and tissue, left fifth toe amputation. 2. Aerobic, anaerobic, Gram stain left proximal phalanx fifth toe. DRAINS: None. COMPLICATIONS: None. BLOOD LOSS: 1 mL. PERTINENT HISTORY: This is a 76-year-old woman who developed ongoing persistent worsening left foot pain, swelling, redness. She noted she had a blister on the top of the left 5th toe. The patient paula d shaking chills. She was admitted to the hospitalist service and placed on IV antibiotics. She had a CT scan, which demonstrated likely fluid collection around the proximal phalanx of the 5th toe and erosions in the proximal phalanx of the 5th toe. The patient unable to have an MRI secondary to mec hanical heart valve. The patient was then noted to have osteomyelitis, left 5th toe and was then rayshawn eduled for surgery as indicated. All potential risks, benefits, complications, alternatives, rehab potential for incomplete relief of symptoms, need for further surgery, DVT, PE, , persistent pain, swelling, scarring, weakness, ne urovascular injury, wound complications, need for further amputation or surgery were discussed with t he patient. The patient decided to proceed with the procedure as indicated. DESCRIPTION OF PROCEDURE: The patient was taken to the operative suite and placed supine on the oper ating room table. After review of consent and identification of proper site, the patient was sedated and left lower extremity was then sterilely prepped and draped in the usual fashion, elevated and pa rtially exsanguinated with an Esmarch bandage, and an Esmarch tourniquet was applied over sterile alisia gical towel at the level of the ankle. After surgical timeout was performed, a digital block was per formed at the base of the left 5th toe with 0.5% Marcaine approximately 20 mL. Next, after adequate anesthesia was achieved at the fifth toe and after surgical timeout was performe d, a racquet-shaped incision was created with a 15 blade scalpel, extending circumferentially around the base of the fifth toe, left foot extending proximally over the extensor tendon. Next, the extens or tendon was then carefully identified after Gena rakes were used to retract soft tissue for visuali zation. Dorsal extensor was then incised and noted to be fluid collection at the base of the proxima l phalanx consistent with CT scan. This was then sampled for aerobic, anaerobic, Gram stain. Next, circumferential dissection was performed to the base of the proximal phalanx of the fifth toe, was no jacki to be marked softening of the proximal phalanx and the blade scalpel passed easily into the bone indicating indeed the patient had osteomyelitis. Next, the joint capsule was then circumferentially released of the proximal phalanx. Next, soft tissue was then sharply incised allowing a robust tissu e flap for later closure. The affected portions of the left 5th toe were then passed off as specimen and the residual foot was then copiously irrigated with lavage solution with Ancef. Next, after lavage was completed, the deep soft tissue was then closed using 2-0 Vicryl. The skin wa s then closed using interrupted 3-0 nylon. Next, a sterile compressive forefoot dressing was applied , overwrapped with an Avelino wrap. The tourniquet was released. The patient was awakened and taken to recovery in stable condition. Job ID: [id number]
[2022-04-09] MEDS: ACETAMINOPHEN 500 MG TAB PO SCH ×3 (05:22→22:25)
[2022-04-09 07:14] LABS: Basophils # (auto) 0.08 K/uL (0-0.2); Basophils % (auto) 0.8 %; Eosinophils # (auto) 1.89 K/uL (0-0.5); Hematocrit (blood only) 34.1 % (37-47); Immature Granulocytes # (auto) 0.16 K/uL (0.00-0.02); Immature Granulocytes % (auto) 1.5 %; Lymphocytes # (auto) 1.69 K/uL (1.2-3.4); Lymphocytes % (auto) 16.1 %; Mean Corpuscular Hemoglobin 28.6 pg (25-34); Mean Corpuscular Hgb Conc 32.3 g/dL (32-36); Mean Corpuscular Volume 88.8 fL (80-100); Monocytes # (auto) 0.97 K/uL (0.11-0.59); Monocytes % (auto) 9.3 %; Neutrophils # (auto) 5.69 K/uL (1.4-6.5); Neutrophils % (auto) 54.3 %; Platelet Count 434 K/uL (130-400); RDW Coefficient of Variation 17.7 % (11.5-14.5); RDW Standard Deviation 57.8 fL (36.4-46.3); Red Blood Count 3.84 M/uL (4.2-5.4); White Blood Count 10.48 K/uL (4.8-10.8)
[2022-04-09 07:33] LABS: INR 1.4 (0.9-1.1); Partial Thromboplastin Ratio 1.5; Partial Thromboplastin Time 42.1 Seconds (21.0-31.0); Prothrombin Time 14.3 Seconds (9.0-12.0)
[2022-04-09 07:42] LABS: BUN Creatinine Ratio 25.6 (10-20); Creatinine Clr Calc Pharmacy 76.4 ml/min; Est GFR (African American) 86.2 ml/min; Est GFR (Non-African American) 74.4 ml/min; Magnesium 2.3 mg/dl (1.7-2.4); Potassium 4.4 mmol/L (3.5-5.1)
--- NOTE | 2022-04-09 09:03 | Orthopedic Progress Note ---
Date of Service April 09, 2022 Assessment & Plan (1) Osteomyelitis of toe of left foot: Plan: POD #1 s/p Left fifth toe amputation Dressing kept in place today. Plan for dressing change tomorrow. Heel WB only on the LLE in post op shoe. She may restart her coumadin today. D/C planning--per medicine. Will follow up with Dr. Toscano ~1 week post op. Admission and Anticipated Discharge Date Admission Date: April 05, 2022 Supervising Physician Co-Signing Physician Notes Patient seen and examined. Agree with RAMESH Lofton's note as above. Patient denies significant pain in her foot. Plan for dressing change tomorrow. Subjective Left foot is doing well. No complaints. Physical Exam Constitutional: WD/WN, vitals as above no acute distress Musculoskeletal: Ankle: + surgical incision (Left foot 5th toe amp site dressing C/D/I.); no skin erythema and no ecchymosis Psychiatric: A+Ox3, euthymic affect Speech: normal rate/rhythm/volume of speech Results & Data ([facility]) Vital Signs (Past 12 Hours) Vital Signs Temp Pulse Pulse Resp BP BP Pulse Ox 04/09/22 08:09 36.7 C 77 16 117/76 95 04/09/22 02:39 36.6 C 78 18 119/74 94 04/09/22 01:54 36.3 C L 79 16 123/80 96 04/09/22 00:41 36.4 C L 82 16 130/77 97 04/09/22 00:12 36.3 C L 88 16 137/82 100 04/08/22 23:38 36.4 C L 72 18 130/72 99 04/08/22 23:30 36.5 C 76 16 138/81 100 04/08/22 23:23 79 16 131/83 97 04/08/22 23:18 75 18 139/80 99 04/08/22 23:13 80 14 143/81 H 98 04/08/22 23:08 78 16 138/83 99 04/08/22 23:03 78 14 134/75 99 04/08/22 22:58 36.4 C L 93 H 18 148/84 H 100
[2022-04-09] MEDS: ATORVASTATIN 20 MG TAB PO SCH (09:21)
[2022-04-09] MEDS: BUMETANIDE 1 MG TAB PO SCH (09:21)
[2022-04-09] MEDS: DOCUSATE SODIUM 100 MG CAP PO SCH ×2 (09:22→20:15)
[2022-04-09] MEDS: ADVANCED PROBIOTIC 1250 MG CAPSULE PO SCH (09:22)
[2022-04-09] MEDS: METOPROLOL SUCC 50MG EXT REL TAB PO SCH ×2 (09:23→20:16)
[2022-04-09] MEDS: MAGNESIUM OXIDE 400 MG TAB PO SCH ×2 (09:23→20:16)
[2022-04-09] MEDS: MULTIVITAMIN TAB PO SCH (09:23)
[2022-04-09] MEDS: TRIAMCINOLONE ACET 0.1% CR 80 GM TUBE EXT SCH ×3 (09:24→20:18)
[2022-04-09] MEDS: PANTOprazole 40 MG TAB PO SCH ×2 (09:24→20:17)
[2022-04-09] MEDS: SUCRALFATE 1 GM TAB PO SCH ×4 (09:24→20:18)
[2022-04-09] MEDS: NYSTATIN POWDER 15GM BTL EXT SCH ×3 (09:24→20:17)
--- NOTE | 2022-04-09 13:44 | Hospitalist Progress Note ---
Date of Service April 09, 2022 Assessment & Plan (1) Left leg cellulitis: Plan: now resolved it seems, but with toe wound and left fifth toe OM as noted on CT foot Recurrent. Had group B strep cellulitis with bacteremia in February. Now with MSSA and group B Streptococcus growing from wound. initially received IV vanco and IV cefepime. Changed to IV Ancef on 04/06 Arterial duplex study results of LLE noted - Dr. Grider of Interventional Vascular saw her and ordered TBI which was normal-there is adequate blood flow and no intervention needed Asplenic state, ?PAD, and DM all contributing to heightened infectious risk. Venous insufficiency also likely contributes to some degree as well. (2) Ulcer of toe of left foot: Plan: L 5th toe, dorsal surface. With OM of prox phalanx on CT foot as well as septic arthritis vs abscess of toe WOund care states the ulcer probes to the bone. Pt reports that because of her mechanical valves she cannot have MRI. -continues on IV abx -consulted Ortho appreciated-now s/p left fifth toe amputation on 04/08 -will plan to switch to po abx at time of discharge-cephalexin (3) Osteomyelitis of toe of left foot: Plan: As noted above (4) Rash: Plan: irritant/contact dermatitis vs candidal (groin portion only) vs other. this rash does not appear to be a drug reaction to any recent antibiotic. It is now completely resolved with antihistamines and topical triamcinolone continue atarax 10mg TID prn thereafter triamcinolone cream 0.1% - TID to rash in thin amounts nystatin powder for rash in groin TID (5) PAD (peripheral artery disease): Plan: LLE arterial duplex worrisome for significant LLE PAD with normal TBI appreciate Vascular opinion, no intervention needed cont statin (6) Hypokalemia: Plan: now improved with replacement and actually became borderline high today back to normal due to high-dose bumex ok to continue Bumex cont mag supplementation Check BMP (7) Acquired asplenia: Plan: due to massive splenomegaly earlier in life, causing lung compromise per her recollection? (8) Acute on chronic heart failure with preserved ejection fraction: Plan: was on 2mg IV BID of bumex for many days to diurese mostly right-sided symptoms restarted home po bumex 4 mg daily (9) Anticoagulant long-term use: Plan: her usual warfarin dosing 2.5mg every day, except 5mg on Mondays Reversed Coumadin for surgery on 04/08 with IV vitamin K Continue heparin drip for bridging restart Coumadin today at 7.5mg and then resume home dosing tomorrow upon discharge [facility] home INR machine and will check INR Wednesday-she declines Lovenox injections for now as states she usually comes up pretty quickly on her INR when low If INR not therapeutic by Wednesday at home, advised to start Lovenox injections Follow INR in AM (10) History of Chris-en-Y gastric bypass: Plan: noted cont PPI bid cont carafate qid (11) Hx of aortic valve replacement, mechanical: Plan: has both MVR and AVR mechanical INR goal 2.5-3.[address] Lee locally (12) Permanent atrial fibrillation: Plan: rate controlled Continue metoprolol succinate 50mg PO BID Anticoagulation with warfarin daily INR (13) GERD (gastroesophageal reflux disease): Plan: Continue pantoprazole 40mg PO BID Continue carafate QID (14) Iron deficiency anemia: Plan: [facility] Ms. Garcia asked me to order iron studies tomorrow as pt missed her appt, gets IV iron infusions as needed -Fe studies, ferritin for tomorrow hgb actually good here at 11 Plan: Dispo-continued stay, but likely dc to home tomorrow PT/OT evals appreciated needs to use Darco shoe and partial weight bearing on heel as tolerated Admission and Anticipated Discharge Date Admission Date: April 05, 2022 Subjective Pt feeling very well. No pain, no CP or OSB, no nausea. Is eating. Moved her bowels yesterday before the surgery. Review of Systems Review of Systems: All systems reviewed & are unremarkable except as noted in HPI & below Physical Exam Constitutional: WD/WN, vitals as above Eyes: + anicteric sclerae Neck: trachea midline, no thyromegaly Respiratory: normal respiratory effort, lungs clear to auscultation Cardiovascular: Rate/Rhythm: regular rate and + irregularly irregular Heart Sounds: + click Gastrointestinal (Abdomen): normal bowel sounds, soft, nontender, no hepatosplenomegaly Musculoskeletal: Extremities: + extremities abnormal to inspection (left foot and ankle in bulky dressing with ZAIRE wrap in place), no cyanosis and no clubbing Neurologic: moves all extremities and awake; no focal motor deficits Psychiatric: A+Ox3, euthymic affect Lymphatic: no lymphedema Results & Data Results & Data ([facility]) Vital Signs (Past 12 Hours) Vital Signs Temp Pulse Pulse Resp BP BP Pulse Ox 04/09/22 11:20 36.7 C 85 16 161/87 H 94 04/09/22 09:19 84 134/79 04/09/22 08:09 36.7 C 77 16 117/76 95 04/09/22 02:39 36.6 C 78 18 119/74 94 04/09/22 01:54 36.3 C L 79 16 123/80 96 Laboratory Results 04/09/22 04/09/22 04/09/22 Range/Units 06:56 06:56 06:56 WBC 10.48 (4.8-10.8) K/uL RBC 3.84 L (4.2-5.4) M/uL Hgb 11.0 L (12.0-16.0) g/dL Hct 34.1 L (37-47) % MCV 88.8 (80-100) fL MCH 28.6 (25-34) pg MCHC 32.3 (32-36) g/dL RDW Std Deviation 57.8 H (36.4-46.3) fL RDW Coeff of Donald 17.7 H (11.5-14.5) % Plt Count 434 H (130-400) K/uL MPV 9.0 (7.4-10.4) fL Immature Gran % (Auto) 1.5 % Neut % (Auto) 54.3 % Lymph % (Auto) 16.1 % Antelope % (Auto) 9.3 % Eos % (Auto) 18.0 % Baso % (Auto) 0.8 % Neut # (Auto) 5.69 (1.4-6.5) K/uL Lymph # (Auto) 1.69 (1.2-3.4) K/uL Antelope # (Auto) 0.97 H (0.11-0.59) K/uL Eos # (Auto) 1.89 H (0-0.5) K/uL Baso # (Auto) 0.08 (0-0.2) K/uL Immature Gran # (Auto) 0.16 H (0.00-0.02) K/uL PT 14.3 H (9.0-12.0) Seconds INR 1.4 H (0.9-1.1) APTT 42.1 H (21.0-31.0) Seconds PTT Ratio 1.5 Sodium 138 (136-145) mmol/L Potassium 4.4 (3.5-5.1) mmol/L Chloride 107 (98-107) mmol/L Carbon Dioxide 26 (21-32) mmol/L Anion Gap 5 (3-11) BUN 20 (6-23) mg/dl Creatinine 0.78 (0.6-1.2) mg/dl Est Cr Clr Drug Dosing 76.4 ml/min Est GFR ( Amer) 86.2 ml/min Est GFR (Non-Af Amer) 74.4 ml/min BUN/Creatinine Ratio 25.6 H (10-20) Glucose 123 H (70-99(Fasting)) mg/dl Calcium 9.0 (8.5-10.1) mg/dl Magnesium 2.3 (1.7-2.4) mg/dl 04/09/22 04/08/22 04/08/22 Range/Units 01:29 17:56 15:37 WBC (4.8-10.8) K/uL RBC (4.2-5.4) M/uL Hgb (12.0-16.0) g/dL Hct (37-47) % MCV (80-100) fL MCH (25-34) pg MCHC (32-36) g/dL RDW Std Deviation (36.4-46.3) fL RDW Coeff of Donald (11.5-14.5) % Plt Count (130-400) K/uL MPV (7.4-10.4) fL Immature Gran % (Auto) % Neut % (Auto) % Lymph % (Auto) % Antelope % (Auto) % Eos % (Auto) % Baso % (Auto) % Neut # (Auto) (1.4-6.5) K/uL Lymph # (Auto) (1.2-3.4) K/uL Antelope # (Auto) (0.11-0.59) K/uL Eos # (Auto) (0-0.5) K/uL Baso # (Auto) (0-0.2) K/uL Immature Gran # (Auto) (0.00-0.02) K/uL PT 17.4 H 18.2 H (9.0-12.0) Seconds INR 1.7 H 1.8 H (0.9-1.1) APTT 33.8 H (21.0-31.0) Seconds PTT Ratio 1.2 Sodium (136-145) mmol/L Potassium (3.5-5.1) mmol/L Chloride (98-107) mmol/L Carbon Dioxide (21-32) mmol/L Anion Gap (3-11) BUN (6-23) mg/dl Creatinine (0.6-1.2) mg/dl Est Cr Clr Drug Dosing ml/min Est GFR ( Amer) ml/min Est GFR (Non-Af Amer) ml/min BUN/Creatinine Ratio (10-20) Glucose (70-99(Fasting)) mg/dl Calcium (8.5-10.1) mg/dl Magnesium (1.7-2.4) mg/dl PG Care Time/CCT Total # of Minutes Spent Total Time Spent with Patient: Total time spent is greater than 50% in coordination of care (as documented) at patient's floor/unit and/or counseling patient: Coding Level of Care Code 32383 Subseq Hosp Care Lvl 3 Diagnoses Left leg cellulitis L03.116 Ulcer of toe of left foot L97.529 Osteomyelitis of toe of left foot M86.9 Rash R21 PAD (peripheral artery disease) I73.9 Hypokalemia E87.6 Acquired asplenia Z90.81 Acute on chronic heart failure with preserved ejection fraction I50.33 Anticoagulant long-term use Z79.01 History of Chris-en-Y gastric bypass Z98.84 Hx of aortic valve replacement, mechanical Z95.2 Permanent atrial fibrillation I48.21 GERD (gastroesophageal reflux disease) K21.9 Iron deficiency anemia D50.9
[2022-04-09 14:14] LABS: Partial Thromboplastin Ratio 1.5; Partial Thromboplastin Time 41.1 Seconds (21.0-31.0)
[2022-04-09] MEDS: WARFARIN SOD 7.5 MG TAB PO SCH (16:54)
[2022-04-09] MEDS ORDERED: SENNA 8.6 MG TAB PO SCH (21:00)
[2022-04-10] MEDS: ceFAZolin 2000MG 2,000 MG/15 ML SYR IV SCH ×2 (01:55→08:28)
[2022-04-10] MEDS: traMADol HCL 50 MG TABLET PO PRN (02:44)
[2022-04-10] MEDS: ACETAMINOPHEN 500 MG TAB PO SCH ×2 (05:56→14:15)
[2022-04-10 06:32] LABS: Basophils # (auto) 0.09 K/uL (0-0.2); Basophils % (auto) 0.8 %; Eosinophils # (auto) 2.18 K/uL (0-0.5); Eosinophils % (auto) 20.4 %; Hematocrit (blood only) 33.8 % (37-47); Hemoglobin 10.4 g/dL (12.0-16.0); Immature Granulocytes # (auto) 0.16 K/uL (0.00-0.02); Immature Granulocytes % (auto) 1.5 %; Lymphocytes # (auto) 2.06 K/uL (1.2-3.4); Lymphocytes % (auto) 19.3 %; Mean Corpuscular Hemoglobin 27.1 pg (25-34); Mean Corpuscular Hgb Conc 30.8 g/dL (32-36); Mean Platelet Volume 9.4 fL (7.4-10.4); Monocytes # (auto) 1.06 K/uL (0.11-0.59); Monocytes % (auto) 9.9 %; Neutrophils # (auto) 5.12 K/uL (1.4-6.5); Neutrophils % (auto) 48.1 %; Platelet Count 426 K/uL (130-400); RDW Coefficient of Variation 17.8 % (11.5-14.5); RDW Standard Deviation 57.3 fL (36.4-46.3); Red Blood Count 3.84 M/uL (4.2-5.4); White Blood Count 10.67 K/uL (4.8-10.8)
[2022-04-10 06:52] LABS: C Reactive Protein 1.08 mg/dl (0-0.5); Calcium 8.8 mg/dl (8.5-10.1); Est GFR (African American) 78.8 ml/min; Potassium 3.6 mmol/L (3.5-5.1)
[2022-04-10 06:58] LABS: INR 1.4 (0.9-1.1); Partial Thromboplastin Ratio 2.3; Prothrombin Time 14.3 Seconds (9.0-12.0)
[2022-04-10 07:09] LABS: Ferritin 267.6 ng/ml (8-388)
[2022-04-10 07:19] LABS: Partial Thromboplastin Time 63.5 Seconds (21.0-31.0)
[2022-04-10] MEDS: SUCRALFATE 1 GM TAB PO SCH ×2 (08:26→14:15)
[2022-04-10] MEDS: ATORVASTATIN 20 MG TAB PO SCH (08:26)
[2022-04-10] MEDS: NYSTATIN POWDER 15GM BTL EXT SCH ×2 (08:27→14:15)
[2022-04-10] MEDS: MULTIVITAMIN TAB PO SCH (08:27)
[2022-04-10] MEDS: METOPROLOL SUCC 50MG EXT REL TAB PO SCH (08:27)
[2022-04-10] MEDS: MAGNESIUM OXIDE 400 MG TAB PO SCH (08:27)
[2022-04-10] MEDS: BUMETANIDE 1 MG TAB PO SCH (08:27)
[2022-04-10] MEDS: PANTOprazole 40 MG TAB PO SCH (08:27)
[2022-04-10] MEDS: ADVANCED PROBIOTIC 1250 MG CAPSULE PO SCH (08:27)
[2022-04-10] MEDS: DOCUSATE SODIUM 100 MG CAP PO SCH (08:28)
[2022-04-10] MEDS: TRIAMCINOLONE ACET 0.1% CR 80 GM TUBE EXT SCH ×2 (08:28→14:15)
--- NOTE | 2022-04-10 11:52 | Discharge Summary ---
Date of Service April 10, 2022 Admission HPI Per Admitting Provider Eden Wagner is a 76 year old female with left leg pain and swelling. She reports noticing left leg erythema with associated swelling and pain for the last two days. Chills started on Wednesday but no objective fevers. She is currently in the process of moving to [place] to be closer to her son. While in [place] when she had the chills she called her PCP for lab work to be ordered who advise her to go to the ER. Instead she waited until she came back to [place] today to come to the ER here. On the journey She has chronic ulcers of both feet being managed by wound care. Leg erythema appeared to originate from her 5th toe ulcer on left leg. She also has a history of congestive heart failure and on prior admission has required IV diuresis to help with swelling which subsequently helps with wound healing. She is unsure whether her weight is up from her baseline but notes her legs are much more swollen than usual. She denies any chest pain, shortness of breath, orthopnea or PND. In the ER foot XR did not show any osteomyelitis. WBC 9.55. Given degree of cellulitis from her foot to above her left knee and previous bacteremia she was referred to medicine for admission and ongoing management of cellulitis. US venous doppler pending due to her calf pain although her INR has been therapeutic. Principal Diagnosis Left lower extremity cellulitis, left fifth toe osteomyelitis Discharge Exam Constitutional WD/WN, vitals as above Eyes + anicteric sclerae Neck trachea midline, no thyromegaly Respiratory normal respiratory effort, lungs clear to auscultation Cardiovascular Rate/Rhythm: regular rate and + irregularly irregular Heart Sounds: + click Gastrointestinal (Abdomen) normal bowel sounds, soft, nontender, no hepatosplenomegaly Musculoskeletal Extremities: + extremities abnormal to inspection (left foot and ankle in bulky dressing with ZAIRE wrap in place), no cyanosis and no clubbing Neurologic moves all extremities and awake; no focal motor deficits Psychiatric A+Ox3, euthymic affect Lymphatic no lymphedema Discharge Data Allergies Allergy/AdvReac Type Severity Reaction Status Date / Time iron [From Venofer] Allergy Severe VENOFER Verified 04/04/22 17:48 INFUSION-RASH,WEAKNESS,BLEEDING-HOSPITALIZED iron dextran complex Allergy Severe RASH Verified 04/04/22 17:48 choline salicylate Allergy Intermediate TRILISATE-r Verified 04/04/22 17:48 nay magnesium salicylate Allergy Intermediate TRILISATE-r Verified 04/04/22 17:48 nay mometasone furoate Allergy Unknown Pt has no Verified 04/04/22 17:48 recollection of this Consultations 04/04/22 18:40 ED Decision to Admit Stat 04/05/22 18:53 Consult Cardiology Routine 04/07/22 10:04 Consult Orthopedic Surgery Routine 04/07/22 12:58 Consult Infectious Diseases Routine Procedures Performed Operation Date: 04/08/22 08:20 Actual Procedures p Left 5th Toe Amputation(Left) - Fabrice Gutiérrez, Ordered Studies 04/04/22 17:08 US venous doppler LE LT Stat 04/04/22 18:41 US arterial duplex LE LT Stat 04/06/22 20:33 CT foot LT w con Routine 04/06/22 21:29 US ankle/brachial index ltd Routine Hospital Course (1) Left leg cellulitis: now mostly resolved it seems, but with toe wound and left fifth toe OM as noted on CT foot Some faint residual erythema on the leg Recurrent. Had group B strep cellulitis with bacteremia in February. Now with MSSA and group B Streptococcus growing from wound. initially received IV vanco and IV cefepime. Changed to IV Ancef on 04/06 and will send home with 2 weeks of p.o. cephalexin Arterial duplex study results of LLE noted - Dr. Grider of Interventional Vascular saw her and ordered TBI which was normal-there is adequate blood flow and no intervention needed Asplenic state, ?PAD, and DM all contributing to heightened infectious risk. Venous insufficiency also likely contributes to some degree as well. (2) Ulcer of toe of left foot: L 5th toe, dorsal surface. With OM of prox phalanx on CT foot as well as septic arthritis vs abscess of toe WOund care states the ulcer probes to the bone. Pt reports that because of her mechanical valves she cannot have MRI. -Treated with IV abx -consulted Ortho appreciated-now s/p left fifth toe amputation on 04/08-they feel they have achieved source control as far as the osteomyelitis goes -Infectious disease consultation obtained just prior to discharge-recommended discontinuation of antibiotics 72 hours after surgery if source control was obtained, however I will continue antibiotics for the cellulitis as above for longer (3) Osteomyelitis of toe of left foot: As noted above (4) Rash: irritant/contact dermatitis vs candidal (groin portion only) vs other. this rash does not appear to be a drug reaction to any recent antibiotic. It is now completely resolved with antihistamines and topical triamcinolone and she has no further itching CBC with eosinophilia-recommend repeat CBC in 1 week to ensure eosinophilia is improving (5) PAD (peripheral artery disease): LLE arterial duplex worrisome for significant LLE PAD with normal TBI appreciate Vascular opinion, no intervention needed cont statin, warfarin (6) Hypokalemia: now improved with replacement (7) Acquired asplenia: due to massive splenomegaly earlier in life, causing lung compromise per her recollection (8) Acute on chronic heart failure with preserved ejection fraction: was on 2mg IV BID of bumex for many days to diurese mostly right-sided symptoms restarted home po bumex 4 mg daily and doing well from a volume standpoint (9) Anticoagulant long-term use: her usual warfarin dosing 2.5mg every day, except 5mg on Mondays Reversed Coumadin for surgery on 04/08 with IV vitamin K Was on heparin drip for bridging restarted Coumadin on 04/09at 7.5mg and then resume home dosing upon discharge she has home INR machine and will check INR Wednesday-she declines Lovenox injections for now as states she usually comes up pretty quickly on her INR when low If INR not therapeutic by Wednesday at home, advised to start Lovenox injections - prescribed 3 days worth of Lovenox for her in case she needs to pick it up. (10) History of Chris-en-Y gastric bypass: noted cont PPI bid cont carafate qid (11) Hx of aortic valve replacement, mechanical: has both MVR and AVR mechanical INR goal 2.5-3.[address] Lee locally (12) Permanent atrial fibrillation: rate controlled Continue metoprolol succinate 50mg PO BID Anticoagulation with warfarin (13) GERD (gastroesophageal reflux disease): Continue pantoprazole 40mg PO BID Continue carafate QID (14) Iron deficiency anemia: [facility] Ms. Garcia asked me to order iron studies as pt missed her appt, gets IV iron infusions as needed Transferrin saturation here is 14% hgb actually good here at 11 Follow-up at [facility] Dispo-DC to home today PT/OT kristi appreciated needs to use Darco shoe and partial weight bearing on heel as tolerated Total Time Total Time Spent Total Time Spent (In Minutes): 45 minutes Total Time Includes: Examination of the Patient, Discharge Planning and Medication Reconciliation Discharge Plan Discharge Items Patient Disposition: Home - Self-Care Reason For Visit: CELLULITIS Discharge Diagnosis: Left lower extremity cellulitis, Left fifth toe osteomyelitis Condition on Discharge: Good Activity: As commented below Non-emergency contact: Primary Care Provider and Surgeon Call non-emergency contact if: you have any medication questions, your symptoms worsen, your pain is not controlled, your pain is worsening, you have a fever and your temperature is above 101 Follow-up/Referrals: Fernie Rodriguez MD [Primary Care Provider] - 04/13/22 11:30 am (Follow up within [address] Miguel Ángel Marquis at [facility] location) Fabrice Gutiérrez DO [Surgeon] - 04/16/22 3:10 pm (Post-op follow up with [facility]. You will see Dr. Gutiérrez's PA-C, Lane Lofton.) Diet: Heart Healthy and Low Sodium (2gm) Ambulatory Orders: Complete Blood Count with Diff (Routine) Timeframe: 1 Week Location: Determined by Patient Ordered By: Katy Marrufo Comprehensive Metabolic Panel (Routine) Timeframe: 1 Week Location: Determined by Patient Ordered By: Katy Marrufo Addbela Attending Provider Instructions: Please finish out the course of antibiotics as prescribed for your toe infection. This will be with cephalexin the liquid suspension form, four times a day for 2 more weeks. Please check your PT/INR on Wednesday and if it is still less then 2.5, you will need to start the Lovenox injections as we discussed twice a day until your INR gets to goal. Please have a CBC, CMP performed in 1 week to check your blood work. Addtl Super[employer] Provider Instructions: ACTIVITY RECOMMENDATIONS: Limitations: Heel weight bearing only if able to tolerate. SPECIAL CARE INSTRUCTIONS: * Some drainage onto the dressing is normal and is no cause for alarm. * Some swelling is natural especially after walking. * When resting, keep your foot elevated above the level of your heart. * Call [facility] if you notice: -Increased drainage -Fever over 101 degrees F -Severe constant pain BANDAGE: * The dressing may be changed every other day. Dressed with Adaptic cut to the size of the incision, gauze, gauze wrap. PIN CARE: * Leave pins alone. * If pins come loose or fall out, notify physician. FOLLOW UP VISIT WITH DR. GUTIÉRREZ If appointment is not already scheduled: Please call [facility] after you get home today to schedule a follow-up appointment for 7-[address] Gutiérrez at . Pending Studies at Discharge: Yes (Wound culture from surgery) Stand-Alone Forms: My [facility] Medications and DC Order Prescriptions: New magnesium oxide 400 mg (241.3 mg magnesium) Tablet 400 mg PO BID Qty: 60 RF: 0 cephalexin 250 mg/5 mL suspension for reconstitution 500 mg PO QID 13 Days Qty: 520 RF: 0 enoxaparin [Lovenox] 100 mg/mL syringe 90 mg subcut Q12H 3 Days Qty: 5.4 RF: 0 Continued warfarin 5 mg tablet 5 mg PO .COMPLEX Qty: 120 RF: 3 tramadol 50 mg tablet 50 mg PO TID PRN (Reason: Pain) Qty: 90 RF: 0 multivitamin Tablet 1 tab PO QAM RF: 0 pantoprazole 40 mg tablet,delayed release (DR/EC) 40 mg PO BID Qty: 60 RF: 5 sucralfate 1 gram tablet 1 g PO TID Qty: 90 RF: 0 cyanocobalamin (vitamin B-12) 1,000 mcg/mL solution 1,000 mcg IM Q4WK Qty: 3 RF: 3 (DME) BD Eclipse 25 gauge x 1" needle See Rx Instructions .ROUTE .MEDSUPPLY Qty: 3 RF: 3 metoprolol succinate 50 mg tablet extended release 24 hr 50 mg PO BID Qty: 180 RF: 3 acetaminophen 500 mg capsule 1,000 mg PO DIRECTED PRN (Reason: Pain) RF: 0 polyethylene glycol 3350 [Miralax] 17 gram/dose powder 17 g PO DAILY PRN (Reason: Constipation) RF: 0 atorvastatin 20 mg tablet 20 mg PO QAM Qty: 90 RF: 0 metolazone 5 mg tablet 5 mg PO DIRECTED PRN (Reason: WT GAIN) RF: 0 potassium chloride 20 mEq/15 mL liquid See Rx Instructions .ROUTE .COMPLEX RF: 0 bumetanide 1 mg tablet 4 mg PO QAM RF: 0 Discontinued oxycodone-acetaminophen [Percocet] 5-325 mg tablet 1 tab PO Q6H PRN (Reason: pain) Qty: 14 RF: 0 Discharge Orders: Discharge Order (Routine); Ordered 04/10/22 Ordered By: Katy Deleon/Other Patient Handouts: Understanding Deep Vein Thrombosis, DVT Complications, Preventing Deep Vein Thrombosis Admission Data Admit Date/Time: 04/05/22 18:50 Attending Provider: Katy Marrufo Admit Provider: Tunde Hester Primary Care Provider: Fernie Rodriguez Other Providers: Tunde Hester ; Lorne Grider ; Fabrice Gutiérrez ; Corey Lawrence ; Mega Gabriel ; Derrell Monroe I. ; Stanley Flores II ; Dalila Dash ; Richi Sharma ; Wesly Alfaro Other Interventions: Discharge Summary Assessment (RN) Last Done: 04/10/22 12:08 Coding Level of Care Code D/C DAY MANAGEMENT >30 MINS Diagnoses Left leg cellulitis L03.116 Ulcer of toe of left foot L97.529 Osteomyelitis of toe of left foot M86.9 Rash R21 PAD (peripheral artery disease) I73.9 Hypokalemia E87.6 Acquired asplenia Z90.81 Acute on chronic heart failure with preserved ejection fraction I50.33 Anticoagulant long-term use Z79.01 History of Chris-en-Y gastric bypass Z98.84 Hx of aortic valve replacement, mechanical Z95.2 Permanent atrial fibrillation I48.21 GERD (gastroesophageal reflux disease) K21.9 Iron deficiency anemia D50.9
--- NOTE | 2022-04-10 12:44 | Orthopedic Progress Note ---
Date of Service April 10, 2022 Assessment & Plan (1) Osteomyelitis of toe of left foot: Plan: POD #2 s/p Left fifth toe amputation Dressing change today. She may change dressing every other day at home. Heel WB only on the LLE in post op shoe. She may restart her coumadin today. D/C planning--per medicine. She may follow-up in approximately 7 to 10 days from discharge. Admission and Anticipated Discharge Date Admission Date: April 05, 2022 Subjective Doing well today. No complaints of the left foot. She has been ambulating on her heel in a postop shoe. States she was seen by infectious disease earlier today and that they will be working with the hospitalist for possible oral antibiotic treatment versus discontinuing antibiotics. Physical Exam Constitutional: WD/WN, vitals as above no acute distress Musculoskeletal: Ankle: + surgical incision (Left foot 5th toe amp site well approximated.); no skin erythema and no ecchymosis Psychiatric: A+Ox3, euthymic affect Speech: normal rate/rhythm/volume of speech Results & Data ([facility]) Vital Signs (Past 12 Hours) Vital Signs Temp Pulse Resp BP BP Pulse Ox 04/10/22 12:08 36.6 C 65 16 119/74 125/71 95 04/10/22 08:15 36.6 C 65 16 125/71 95
[2022-04-10] MEDS: WARFARIN SOD 7.5 MG TAB PO SCH (14:21)
== END 2022-04-10 14:40 | disposition home or self-care (01) | DRG 616 ==
LOC: 3E 16:38 → ED 16:38 → SUATTDRO 19:08 → 3E 19:42 → SUATTDRO 04-05 18:50